=== PATIENT | male | born 1960 | race Caucasian/White ===

== ENCOUNTER 2019-08-12 18:24 | Inpatient (IN) | payer MEDICARE, OTHER, SELFPAY ==
--- NOTE | ~2019-08-12 | XR_ITS ---
EXAMINATION: XR chest 1V portable EXAM DATE: 08/15/2019 23:33 INDICATION: Shortness of breath, hypoxia. TECHNIQUE: Portable AP frontal chest x-ray was obtained. Comparison is made to prior examination from 08/13/2019. FINDINGS: There is been significant interval progression in the previously seen airspace disease, now more extensive involvement of both lungs bilaterally, pneumonia and/or edema. Please clinically martha elate. There is mild cardiomegaly. Cardiac silhouette is stable in size compared to prior exam. There is no pneumothorax suspected. Possible small pleural effusions. There are no osseous abnormalities i dentified. IMPRESSION: Progression of bilateral acute airspace disease. Consider edema, pneumonia, acute lung in jury. Reviewed, dictated and finalized at location G. IMPRESSION: Progression of bilateral acute airspace disease. Consider edema, pn eumonia, acute lung injury.
--- NOTE | ~2019-08-12 | XR_ITS ---
XR chest 1V portable DATE: 08/13/2019 11:26 INDICATION: Pneumonia TECHNIQUE: Portable upright AP chest on 08/13/2019 at 1115 hours COMPARISON: 01/09/2019 AP and lateral chest FINDINGS: There are scattered areas of patchy consolidation involving both upper and lower lung zones . Cardiomegaly. Pulmonary vascularity appears within normal range. No pleural effusion or pneumothorax is evident. IMPRESSION: Patchy consolidation of both upper and lower lung zones Reviewed, dictated and finalized at location A.
--- NOTE | ~2019-08-12 | CT_ITS ---
EXAMINATION: CT abdomen pelvis w con DATE: 08/12/2019 19:32 INDICATION: Abdominal pain and diarrhea TECHNIQUE: Computed tomography (CT) of the abdomen and pelvis was performed . with 100 mL Omnipaque-3 50 intravenous contrast. Automated exposure control and iterative reconstruction technique were emplo yed. The dose-length product was 1589.92 mGy-cm. COMPARISON: 03/16/2018 FINDINGS: Small bilateral posteriorly layering pleural effusions with dependent compressive atelectasis in the bilateral lower lobes. Well-defined 4.6 x 3.4 x 2.4 cm mass versus focal consolidation in the anterob asilar segment of the left lower lobe. Heart size is normal. Atherosclerotic coronary artery calcific ations. No pericardial effusion. There are scattered hepatic calcifications consistent with old granu lomatous disease. Calcified gallstone in the dependent neck of the otherwise normal-appearing gallbla dder with no evident wall thickening or pericholecystic inflammatory stranding to suggest acute marlon cystitis. Splenomegaly measuring 16.0 cm maximal length. Pancreas, bilateral adrenal glands and kidne ys are normal. Air-fluid levels in the colon consistent with given history of diarrhea. No abnormal b owel wall thickening or obstruction. The appendix is not visualized. No pericecal inflammatory change to suggest acute appendicitis. Bladder is normal. No free intraperitoneal gas or fluid. No pathologi joanne enlarged abdominal or pelvic lymphadenopathy. There is calcified atherosclerosis of the aorta a nd many of the other arteries. Mild thoracolumbar spondylosis with bridging osteophytes at multiple l evels, consistent with diffuse idiopathic skeletal hyperostosis (DISH). IMPRESSION: 1. Air-fluid levels in the colon consistent with given history of diarrhea. No other acute intra-abdo laurel/pelvic process. 2. Small bilateral pleural effusions. 3. More focal 4.6 x 3.4 x 2.4 cm masslike region of consolidation in the left lower lobe. Differentia l would include pneumonia, malignancy, organizing pneumonia and atelectasis. 4. Cholelithiasis. 5. Unchanged nonspecific splenomegaly which could be related to body habitus. Reviewed, dictated and finalized at location A. IMPRESSION: 1. Air-fluid levels in the colon consistent with given history of diarrhea. No other acute intra-abdominal/pelvic process. 2. Small bilateral pleural effusions. 3. More focal 4.6 x 3.4 x 2.4 cm masslike region of consolidation in the left l ower lobe. Differential would include pneumonia, malignancy, organizing pneumon ia and atelectasis. 4. Cholelithiasis. 5. Unchanged nonspecific splenomegaly which could be related to body habitus.
[2019-08-12 18:31] VITALS: BP 111/101; PULSE 80; RESP 16; TEMP 36.9; O2SAT 100
--- NOTE | 2019-08-12 18:48 | ED.GENADULT ---
HPI - General Adult General Chief complaint: Nausea/Vomiting/Diarrhea Stated complaint: diarrhea Time Seen by Provider: 08/12/19 18:26 Source: patient Mode of arrival: EMS History of Present Illness HPI narrative: Patient presents for evaluation of 10-day course of diarrhea. He indicates he is currently having about 3-4 bowel movements per day. He has noted a small amount of blood in the stool. He has a history of C. difficile several years ago. He reports some intermittent nonspecific abdominal pain that is relieved by bowel movements. He has experienced some nausea without vomiting. He indicates his urine is concentrated in appearance and he has noted decreased urinary output. He states he went into [facility] in the past when he had c-diff. Currently states he started a course of azithromycin for some respiratory symptoms on 08/02/2019. Those symptoms have resolved. He denies any chest pain. He is diabetic but is not taking his medications for diabetes over the last few days due to blood sugars within the normal range. Related Data Home Medications Medication Instructions Recorded Confirmed apixaban 5 mg tablet 5 mg PO BID 05/14/19 carvedilol phosphate 80 mg 80 mg PO DAILY 05/14/19 capsule,[id number] multiphase digoxin 250 mcg (0.25 mg) tablet 250 mcg PO DAILY 05/14/19 gabapentin 600 mg tablet 600 mg PO TID 05/14/19 insulin glargine 100 unit/mL 75 unit SUB-Q BID 05/14/19 subcutaneous solution insulin regular hum U-500 conc unit SUB-Q QAM 05/14/19 Livalo 4 mg PO DAILY 08/12/19 losartan 50 mg PO DAILY 08/12/19 spironolactone 25 mg PO DAILY 08/12/19 torsemide 20 mg PO QAM 08/12/19 Allergies Allergy/AdvReac Type Severity Reaction Status Date / Time meperidine Allergy Unknown Other Verified 08/12/19 20:48 Review of Systems Review of Systems: Narrative: CONSTITUTIONAL: Denies fever, chills, or sweats. EYES: Denies visual changes, redness, or discharge. ENT: Denies rhinorrhea, congestion, sore throat, or otalgia. CARDIOVASCULAR: Denies chest pain, palpitations, or edema. RESPIRATORY: Denies cough or dyspnea. GASTROINTESTINAL: Reports abdominal pain and nausea. Reports frequent diarrhea with a small amount of blood in the stool denies vomiting. GENITOURINARY: Reports decreased urinary output with concentrated appearance. SKIN: Denies rash or itching. MUSCULOSKELETAL: Denies back pain, joint pain, or myalgia. NEUROLOGIC: Denies headache, numbness, dizziness, or weakness. PSYCHIATRIC: Denies anxiety or depression. [facility] Past Medical History Medical History (Updated 08/12/19 @ 20:46 by Mitul Ruiz, [facility], ) Atrial fibrillation Diabetes mellitus type 2 in obese History of left above knee amputation Hyperlipidemia Surgical History Surgical History (Updated 08/12/19 @ 18:53 by Mitul Ruiz, [facility], ) History of appendectomy History of right below knee amputation Family History Family History (Updated 03/09/18 @ 21:22 by DOCTOR UNKNOWN) Sibling Family history of malignant neoplasm Father Diabetes mellitus Grandparent Diabetes mellitus Other Family history of arthritis Hypertension Social History Social History (Updated 08/12/19 @ 18:53 by Mitul Ruiz, [facility], ) Smoking status: Never smoker Alcohol intake: former Substance use: never Exam Narrative: Exam Narrative: GENERAL: Well-appearing, well-nourished, and in no acute distress. HEAD: Normocephalic, atraumatic. EYES: PERRLA and EOMI. ENT: Nares clear, no rhinorrhea or epistaxis. Mucous membranes moist. Oropharynx without tonsillar hypertrophy exudate or other lesions. Bilateral TMs pearly shea nonbulging NECK: Supple. No adenopathy or masses. No carotid bruits or JVD CHEST: Clear to auscultation. No respiratory distress. No wheezes rales or rhonchi HEART: Regular rate and rhythm. No murmur heard. Normal peripheral pulses. ABDOMEN: Soft, diffuse tenderness without rebound or guarding, normal
[2019-08-12 18:57] LABS: Basophils Absolute Auto 0.1 K/mm3 (0.0-0.1); Basophils Percent Auto 0.4 % (0.2-1.2); Eosinophils Absolute Auto 0.2 K/mm3 (0-0.3); Eosinophils Percent Auto 0.7 % (0-4.4); Hematocrit 36.3 % (42.0-52.0); Hemoglobin 11.4 g/dL (14.0-18.0); Immature Granulocyte Absolute 0.19 K/mm3 (0.00-0.031); Immature Granulocyte Percent A 0.9 % (0-0.5); Lymphocytes Absolute Auto 1.09 K/mm3 (0.9-3.2); Lymphocytes Percent Auto 4.9 % (18.3-44.2); Mean Corpuscular HGB Conc 31.4 g/dl (32-36); Mean Corpuscular Hemoglobin 27.8 pg (26-34); Mean Corpuscular Volume 88.5 fl (80-100); Mean Platelet Volume 8.9 fl (7.4-10.4); Monocytes Absolute Auto 1.5 K/mm3 (0.1-0.6); Monocytes Percent Auto 6.6 % (2.6-8.5); Neutrophils Absolute Auto 19.2 K/mm3 (1.3-6.7); Neutrophils Percent Auto 86.5 % (45.5-73.1); Platelet Count Result 277 k/mm3 (150-375); Red Cell Distribution Width 14.6 % (11.5-14.5); White Blood Count 22.1 K/mm3 (4.5-10.0)
[2019-08-12] MEDS: SODIUM CHLORIDE 0.9% IV 1,000 ML 150 ML IV CONT (19:03)
[2019-08-12] MEDS: MORPHINE SULFATE 2 MG/ML INJ IV PUSH (19:04)
[2019-08-12] MEDS: ONDANSETRON INJ 4 MG/2 ML VIAL IV PUSH (19:04)
[2019-08-12 19:09] LABS: INR 1.4; Prothrombin Time 16.8 Seconds (11.1-14.7)
[2019-08-12 19:10] LABS: Partial Thromboplastin Time 34.9 SECONDS (22.3-36.8)
[2019-08-12 19:23] LABS: Estimated CRCL calculation 77 ml/min; Estimated Glomerular Filt Rate 57
--- NOTE | 2019-08-12 19:34 | ECG_ITS ---
Measurements Intervals [place] Rate: 78 P: SC: 0 QRS: 63 QRSD: 105 T: 85 QT: 349 QTc: 399 Interpretive Statements ATRIAL FIBRILLATION LOW QRS VOLTAGE IN LIMB LEADS POOR R WAVE PROGRESSION, ANTERIOR LEADS BORDERLINE T WAVE ABNORMALITY- INF/LAT LEADS BASELINE ARTIFACT- V2 ABNORMAL ECG Electronically Signed On 08-13-2019 7:08:25 CDT by Jayjay Barnes D.O.
[2019-08-12 20:07] LABS: Alanine Aminotransferase 20 U/L (4-50); Albumin Level 3.3 g/dL (3.5-5.1); Alkaline Phosphatase 132 U/L (38-126); Aspartate Amino Transferase 31 U/L (17-59); Bilirubin,Total 0.6 mg/dL (0.2-1.3); Blood Urea Nitrogen 43 mg/dL (9-20); Calcium 8.2 mg/dL (8.4-10.2); Carbon Dioxide 23 mmol/L (22-30); Chloride 104 mmol/L (98-107); Estimated CRCL calculation 83 ml/min; Estimated Glomerular Filt Rate > 60; Glucose 156 mg/dL (75-110); Lipase 32 U/L (23-300); Potassium 4.8 mmol/L (3.4-5.0); Sodium 137 mmol/L (137-145)
[2019-08-12 20:43] LABS: Lactic Acid Reflex 0.9 mmol/L (0.7-2.1)
[2019-08-12] MEDS: LACTATED RINGERS 1,000 ML 999 ML IV CONT (21:26)
[2019-08-12] MEDS: metroNIDAZOLE 500 MG/ISO 100ML 500 MG/100 ML BAG 100 MG IVPB (21:27)
[2019-08-12] MEDS: LACTATED RINGERS 1,000 ML 125 ML IV CONT (22:38)
[2019-08-12 23:15] VITALS: BP 120/53; PULSE 71; RESP 20; TEMP 36.6; O2SAT 92; BMI 63.2
--- NOTE | 2019-08-12 23:32 | ADMGEN ---
This patient, Lester Nguyễn, was admitted to 3 [facility] Surg Room 328-01. Patient/family oriented to hospital policies and general routines including ID bracelet, bed and alarms, visiting hours, pain management, procedures, bathroom and other care routines, personal items, smoking policy, room service/diet, and visiting hours. Valuables list has been completed. Information on how to activate the Rapid Response Team has been discussed. Patient/Family are encouraged to report perceived risks to care and to ask questions if they do not understand what they are told or what they should do.
[2019-08-13] VITALS (7 sets, daily range): BP systolic 112–154; BP diastolic 41–51; PULSE 72–85; RESP 16–20; TEMP 36.2–36.7; O2SAT 91–95
[2019-08-13 00:27] LABS: Glucose Point of Care 147 (65-105)
[2019-08-13 01:54] LABS: Add Urine Microscopic? NO; Appearance Urine Clear (Clear); Bilirubin Urine Negative (Negative); Blood Urine Negative (Negative); Color Urine Yellow (Yellow); Glucose Urine UA Negative (Negative); Ketones Urine Negative (Negative); Leukocyte Esterase Ur Negative LEU/UL (Negative); Nitrate Urine Negative (Negative); Protein Urine Negative (Negative); Specific Grav Ur 1.029 (1.001-1.035); Urobilinogen Urine Negative mg/dL (<2.0)
--- NOTE | 2019-08-13 04:01 | PM.IMHP ---
H&P: HPI History of Present Illness Chief complaint: community acquired pneumonia, acute diarrhea Narrative: Date and time of patient contact: 08/13/2019 at 3:30 a.m. Lester Nguyễn is a 59 year old male with a complex past medical history including insulin-dependent diabetes mellitus, chronic kidney disease, peripheral vascular disease with subsequent bilateral lower extremity amputations, morbid obesity, and prior C diff colitis who presented to the ER with diarrhea for the last 10 days or so. The patient reports that he started having a cough a little over 2 weeks ago. His primary care physician give him a prescription for azithromycin which she completed. His cough was productive of green sputum. He reports that his cough is somewhat better. At the time my evaluation the patient coughed up some sputum that was yellow and green in color with some pink tinge. He reports some mild shortness of breath associated with the cough. He denies any chest pain. He denies any fevers or chills. He has been having some mild nasal congestion in the morning but that is not unusual for him. He denies any sore throat. He reports some decreased sensation of taste in that things do not taste right. He denies any loss of sense of smell. He has had 1 episode of post-tussive emesis a couple of days ago. He reports that diarrhea has been ongoing for about 10 days. He does not think that it is C diff because it does not smell like C diff. He reports that the stool is watery and light brown in color. He denies any mucus or blood in his stool. He has noticed some blood on the toilet paper over the last day or so but reports that his bottom is role from diarrhea. He had tried [id number] Imodium which has not helped his diarrheal symptoms. He has been having for 5 stools a day. He has had mild decreased oral intake. He has noticed that his urine has had decreased volume despite taking his home to erosive might and spironolactone. He had also noticed decreased urine output. He has not taken any of his home meds including his insulin and diuretics for the last couple of days. His continuous glucose monitor demonstrates his glucoses been mostly in the 130s for the last 24 hours. He denies any recent ill contacts. He lives at home with his brother who is a truck body builder. One of the CNAs that works at our facility also works for the patient part-time and helps him bathe a couple of times a week. He states that he is certain he does not have COVID-19. He reports that he sleeps in his wheelchair sitting up. He does not feel safe transferring from his wheelchair to bed. He was supposed the have a wheelchair evaluation on Tuesday. He has been trying for over a year to get a new wheelchair that would better assist his mobility given is bilateral lower extremity amputation but is run into various barriers. Review of Systems Review of Systems: Narrative: 12 systems were reviewed with pertinent positives and negatives per HPI. Except as documented in the HPI, all other systems were reviewed and are negative. [facility] Past Medical History Medical History (Updated 08/13/19 @ 04:31 by Marielle Moore DO) Atrial fibrillation On chronic anticoagulation with Eliquis Chronic kidney disease, stage 3 Diabetes mellitus type 2 in obese Diabetic nephropathy Diabetic peripheral neuropathy Diastolic dysfunction Last echocardiogram March 2018 demonstrated normal EF of 65-70 with moderate LVH and severe left atrial enlargement Hyperlipidemia Obstructive sleep apnea treated with BiPAP Peripheral vascular disease Surgical History Surgical History (Updated 08/13/19 @ 04:32 by Marielle Moore DO) History of appendectomy History of bilateral carpal tunnel release History of left above knee amputation History of right below knee amputation Family History Family History Sibling Lung cancer Si
--- NOTE | 2019-08-13 04:29 | PC.NURSE ---
Unable to obtain wound pictures due to patient's size and limited bed space to adequately turn to visualize sacral ulcers. Will have a specialty bed ordered to allow for more room to move patient.
[2019-08-13] MEDS: metroNIDAZOLE 500 MG/ISO 100ML 500 MG/100 ML BAG 100 MG IVPB ×3 (05:52→22:47)
[2019-08-13 08:10] LABS: Basophils Absolute Auto 0.1 K/mm3 (0.0-0.1); Basophils Percent Auto 0.4 % (0.2-1.2); Eosinophils Absolute Auto 0.2 K/mm3 (0-0.3); Eosinophils Percent Auto 1.1 % (0-4.4); Hematocrit 32.4 % (42.0-52.0); Hemoglobin 10.2 g/dL (14.0-18.0); Immature Granulocyte Absolute 0.15 K/mm3 (0.00-0.031); Immature Granulocyte Percent A 0.9 % (0-0.5); Lymphocytes Absolute Auto 1.06 K/mm3 (0.9-3.2); Lymphocytes Percent Auto 6.6 % (18.3-44.2); Mean Corpuscular HGB Conc 31.5 g/dl (32-36); Mean Corpuscular Hemoglobin 27.9 pg (26-34); Mean Corpuscular Volume 88.8 fl (80-100); Mean Platelet Volume 8.5 fl (7.4-10.4); Monocytes Absolute Auto 1.2 K/mm3 (0.1-0.6); Monocytes Percent Auto 7.5 % (2.6-8.5); Neutrophils Absolute Auto 13.5 K/mm3 (1.3-6.7); Neutrophils Percent Auto 83.5 % (45.5-73.1); Platelet Count Result 233 k/mm3 (150-375); Red Blood Count 3.65 M/mm3 (4.6-6.20); Red Cell Distribution Width 14.6 % (11.5-14.5); White Blood Count 16.1 K/mm3 (4.5-10.0)
[2019-08-13 08:26] LABS: Glucose Point of Care 144 (65-105)
[2019-08-13 08:27] LABS: Alanine Aminotransferase 17 U/L (4-50); Alkaline Phosphatase 110 U/L (38-126); Aspartate Amino Transferase 25 U/L (17-59); Bilirubin,Total 0.7 mg/dL (0.2-1.3); Blood Urea Nitrogen 41 mg/dL (9-20); Calcium 7.9 mg/dL (8.4-10.2); Carbon Dioxide 25 mmol/L (22-30); Chloride 104 mmol/L (98-107); Estimated CRCL calculation 91 ml/min; Estimated Glomerular Filt Rate > 60; Glucose 144 mg/dL (75-110); Potassium 4.5 mmol/L (3.4-5.0); Sodium 136 mmol/L (137-145)
[2019-08-13] MEDS: GABAPENTIN 400 MG CAPSULE 800 MG PO ×3 (09:24→18:07)
[2019-08-13] MEDS: LOSARTAN POTASSIUM 50 MG TABLET PO (09:24)
[2019-08-13] MEDS: APIXABAN 5 MG TABLET PO ×2 (09:25→18:08)
[2019-08-13] MEDS: SPIRONOLACTONE 25 MG TABLET PO (09:25)
[2019-08-13] MEDS: INSULIN ASPART (*BKC) 100 UNITS/ML 8 UNITS SUB-Q ×3 (09:27→18:03)
[2019-08-13] MEDS: DIGOXIN 250 MCG TABLET PO (09:40)
[2019-08-13] MEDS: ALBUTEROL SULFATE (*SP) AEROSOL 1 PUFF 2 PUFF INHALATION ×3 (12:45→19:49)
[2019-08-13 13:46] LABS: Glucose Point of Care 148 (65-105)
[2019-08-13 13:55] LABS: SARS-CoV-2 RNA PCR Negative
--- NOTE | 2019-08-13 14:17 | PC.NURSE ---
Notified Dr. Blanco that patient is negative for COVID and that we are moving the patient into 302. No new orders were obtained.
[2019-08-13] MEDS: LACTATED RINGERS 1,000 ML 125 ML IV CONT (14:32)
[2019-08-13] MEDS: MORPHINE SULFATE 2 MG/ML INJ (14:33)
--- NOTE | 2019-08-13 17:56 | PM.IMPN ---
Progress Note: A&P Assessment and Plan (1) Diarrhea: Qualifiers: Diarrhea type: presumed infectious Qualified Code(s): R19.7 - Diarrhea, unspecified Code(s): R19.7 - Diarrhea, unspecified Status: Acute Assessment and Plan: Could be viral or bacterial in nature. Antibiotic therapy has been started with Flagyl C diff testing has been sent Given his relative dehydration the patient's toresimide and spironolactone have been held. 08/13/19 17:56 Patient is a 59-year-old male morbidly obese with a BMI of 63, with history of C diff in the past presented with complaint of loose bowel movement last ended, he does not feel it is a C diff, he had been having cough and is primary care doctor started him on a Zithromax, patient still complains of cough but denies any shortness of breath fever or chills, chest x-ray shows pneumonia patient being treated with levofloxacin, the concern patient may have a COVID-19 however test is negative, please taken off isolation, will continue Levaquin continue to monitor the patient (2) Community acquired pneumonia: Qualifiers: Laterality: left Lung location: lower lobe of lung Qualified Code(s): J18.9 - Pneumonia, unspecified organism Code(s): J18.9 - Pneumonia, unspecified organism Status: Acute Assessment and Plan: Patient has been initiated on antibiotic therapy with Levaquin. Given the current incidence of pneumonia associated with COVID-19 COVID-19 testing has been [address] does mention possibility of lung mass in the differential. If the patient's COVID-19 testing negative may consider CT of the chest at a later date. COVID-19 is negative patient is on Levaquin patient will need repeat CT scan to further evaluate lung mass once the pneumonia has improved (3) DARIN (obstructive sleep apnea): Code(s): G47.33 - Obstructive sleep apnea (adult) (pediatric) Status: Acute Assessment and Plan: He has not used his home BiPAP in the last 6 months to year. Due to sitting in his wheelchair to sleep. Will hold off on ordering the patient's Pap therapy until COVID-19 has returned (4) Diabetes mellitus type 2 in obese: Code(s): E11.69 - Type 2 diabetes mellitus with other specified complication; E66.9 - Obesity, unspecified Status: Acute Assessment and Plan: The patient is on a unusual sliding scale at home this will be held. While he is here place patient on mealtime bolus insulin of 8 units with meals and will add moderate sliding scale insulin with Accu-Cheks a.cAnila HS Given his relative euglycemia despite not taking his Lantus for the last 2 days and given his decreased oral intake his home Lantus will be held. Subjective Date/time seen: 08/13/19 17:56 Patient is a 59-year-old male morbidly obese with a BMI of 63, with history of C diff in the past presented with complaint of loose bowel movement last ended, he does not feel it is a C diff, he had been having cough and is primary care doctor started him on a Zithromax, patient still complains of cough but denies any shortness of breath fever or chills, chest x-ray shows pneumonia patient being treated with levofloxacin, the concern patient may have a COVID-19 however test is negative, please taken off isolation, will continue Levaquin continue to monitor the patient Review of Systems Review of Systems: All systems reviewed & are unremarkable except as noted in HPI and below Exam Narrative: Exam Narrative: Morbidly obese with a BMI of 63 Const: General: comfortable and no acute distress HENMT: General nose exam: Normal nares present Mouth: Yes moist mucous membranes Eyes: General: appearance normal, both eyes and all related structures Sclera: sclerae normal Neck: Neck: supple Resp: Effort & Inspection: normal respiratory effort Auscultation: clear to auscultation bilaterally Cardio: Rate: regular rate Rhythm: regular rhythm GI: Auscultat
[2019-08-13 19:30] LABS: Glucose Point of Care 154 (65-105)
[2019-08-14] VITALS (7 sets, daily range): BP systolic 95–118; BP diastolic 40–48; PULSE 66–83; RESP 20; TEMP 36.3–37.4; O2SAT 90–94
[2019-08-14 00:35] LABS: Glucose Point of Care 220 (65-105)
[2019-08-14] MEDS: LACTATED RINGERS 1,000 ML 125 ML IV CONT ×2 (03:41→13:11)
[2019-08-14 06:33] LABS: Hematocrit 35.1 % (42.0-52.0); Hemoglobin 10.5 g/dL (14.0-18.0); Mean Corpuscular HGB Conc 29.9 g/dl (32-36); Mean Corpuscular Hemoglobin 27.8 pg (26-34); Mean Corpuscular Volume 92.9 fl (80-100); Mean Platelet Volume 8.7 fl (7.4-10.4); Platelet Count Result 262 k/mm3 (150-375); Red Blood Count 3.78 M/mm3 (4.6-6.20); Red Cell Distribution Width 14.9 % (11.5-14.5); White Blood Count 19.1 K/mm3 (4.5-10.0)
[2019-08-14 06:49] LABS: Potassium 4.9 mmol/L (3.4-5.0)
[2019-08-14] MEDS: metroNIDAZOLE 500 MG/ISO 100ML 500 MG/100 ML BAG 100 MG IVPB ×3 (06:56→21:10)
[2019-08-14 07:04] LABS: Blood Urea Nitrogen 44 mg/dL (9-20); Carbon Dioxide 20 mmol/L (22-30); Chloride 104 mmol/L (98-107); Estimated CRCL calculation 47 ml/min; Estimated Glomerular Filt Rate 31; Glucose 190 mg/dL (75-110); Sodium 134 mmol/L (137-145)
[2019-08-14] MEDS: GABAPENTIN 400 MG CAPSULE 800 MG PO ×3 (08:25→17:16)
[2019-08-14] MEDS: APIXABAN 5 MG TABLET PO ×2 (08:25→17:16)
[2019-08-14] MEDS: DIGOXIN 250 MCG TABLET PO (08:26)
[2019-08-14 08:30] LABS: Glucose Point of Care 183 (65-105)
[2019-08-14] MEDS: INSULIN ASPART (*BKC) 100 UNITS/ML 8 UNITS SUB-Q ×3 (08:39→17:27)
[2019-08-14] MEDS: ALBUTEROL SULFATE (*SP) AEROSOL 1 PUFF 2 PUFF INHALATION ×4 (09:30→19:25)
--- NOTE | 2019-08-14 12:29 | PM.IMPN ---
Progress Note: A&P Assessment and Plan (1) Diarrhea: Qualifiers: Diarrhea type: presumed infectious Qualified Code(s): R19.7 - Diarrhea, unspecified Code(s): R19.7 - Diarrhea, unspecified Status: Acute Assessment and Plan: Possibly viral or bacterial. C. diff testing initiated in ER. Results not yet available. Still with diarrhea. Will continue IV Levaquin and metronidazole. WBC remains elevated at 19.1 today. Continue IV fluids but will decrease rate. Will have PT/OT evaluate. (2) Community acquired pneumonia: Qualifiers: Laterality: left Lung location: lower lobe of lung Qualified Code(s): J18.9 - Pneumonia, unspecified organism Code(s): J18.9 - Pneumonia, unspecified organism Status: Acute Assessment and Plan: CT abdomen/pelvis with 4.6 x 3.4 x 2.4 cm masslike region of consolidation in left lower lobe. Chest xray with patchy consolidation of both upper and lower lung zones. COVID-19 test is negative. Influenza negative. Urine Legionella negative. Mycoplasma pneumoniae antibody negative. On room air. Continue IV Levaquin as noted above. (3) Acute renal failure superimposed on stage 3 chronic kidney disease: Qualifiers: Acute renal failure type: unspecified Qualified Code(s): N17.9 - Acute kidney failure, unspecified; N18.3 - Chronic kidney disease, stage 3 (moderate) Code(s): N17.9 - Acute kidney failure, unspecified; N18.3 - Chronic kidney disease, stage 3 (moderate) Status: Acute Assessment and Plan: Most likely result of dehydration. Creatinine increased to 2.20 today. Hold losartan and spironolactone. Continue IV fluids as noted above. Will continue to monitor. (4) Diabetes mellitus type 2 in obese: Code(s): E11.69 - Type 2 diabetes mellitus with other specified complication; E66.9 - Obesity, unspecified Status: Acute Assessment and Plan: Glucose reviewed on 08/14/2019. Currently, glucose is acceptable with occasional reading above 200. Will continue to hold home Lantus today but continue scheduled mealtime insulin with sliding scale. Will continue to monitor. Will adjust treatment as needed. (5) DARIN (obstructive sleep apnea): Code(s): G47.33 - Obstructive sleep apnea (adult) (pediatric) Status: Acute Assessment and Plan: Has not used home BiPAP in last 6 months to 1 year. With COVID-19 testing negative, will have BiPAP available for use while here. (6) Atrial fibrillation: Qualifiers: Atrial fibrillation type: unspecified Qualified Code(s): I48.91 - Unspecified atrial fibrillation Code(s): I48.91 - Unspecified atrial fibrillation Status: Acute Assessment and Plan: Known atrial fibrillation. Presently stable. Will continue home digoxin and carvedilol. Continue apixaban for anticoagulation. (7) DVT prophylaxis: Code(s): Z29.9 - Encounter for prophylactic measures, unspecified Status: Acute Assessment and Plan: Continue home apixaban. Time Spent With Patient Time with patient: 15 - 25 minutes Subjective Date/time seen: 08/14/19 12:29 Interval history: Date of Service: 08/14/2019. Admitted with diarrhea, pneumonia. Feels a little bit better today although still weak. Still with diarrhea. No abdominal pain, nausea or vomiting. No chest pain. Had shortness of breath earlier today but better now. No headache or dizziness. Review of Systems Constitutional: Constitutional: Denies chills, Reports fatigue, Denies fever(s) and Reports weakness ENT: Denies dysphagia Cardiovascular: Cardiovascular: Denies chest pain Respiratory: Respiratory: Denies cough and Reports dyspnea Gastrointestinal: Gastrointestinal: Denies abdominal pain, Reports diarrhea, Denies nausea and Denies vomiting Genitourinary: Genitourinary: Reports no additional male genitourinary complaints Musculoskeletal: Musculoskeletal: Re
[2019-08-14] MEDS: LACTATED RINGERS 1,000 ML 100 ML IV CONT (14:56)
[2019-08-14 15:09] LABS: Glucose Point of Care 174 (65-105)
[2019-08-14] MEDS: INSULIN ASPART (*BKC) 100 UNITS/ML SUB-Q (17:28)
[2019-08-14 17:37] LABS: Glucose Point of Care 275 (65-105)
[2019-08-15] VITALS (9 sets, daily range): BP systolic 105–150; BP diastolic 44–66; PULSE 61–72; RESP 15–28; TEMP 36.1–36.7; O2SAT 91–95
[2019-08-15 00:43] LABS: Glucose Point of Care 234 (65-105)
[2019-08-15] MEDS: LACTATED RINGERS 1,000 ML 100 ML IV CONT ×2 (02:12→13:12)
[2019-08-15] MEDS: metroNIDAZOLE 500 MG/ISO 100ML 500 MG/100 ML BAG 100 MG IVPB (06:13)
[2019-08-15 06:38] LABS: Hematocrit 34.3 % (42.0-52.0); Hemoglobin 10.6 g/dL (14.0-18.0); Mean Corpuscular HGB Conc 30.9 g/dl (32-36); Mean Corpuscular Volume 90.5 fl (80-100); Platelet Count Result 261 k/mm3 (150-375); Red Blood Count 3.79 M/mm3 (4.6-6.20); Red Cell Distribution Width 14.9 % (11.5-14.5); White Blood Count 15.7 K/mm3 (4.5-10.0)
[2019-08-15 06:59] LABS: Blood Urea Nitrogen 61 mg/dL (9-20); Carbon Dioxide 20 mmol/L (22-30); Chloride 103 mmol/L (98-107); Estimated CRCL calculation 36 ml/min; Estimated Glomerular Filt Rate 22; Glucose 275 mg/dL (75-110); Sodium 132 mmol/L (137-145)
[2019-08-15] MEDS: ALBUTEROL SULFATE (*SP) AEROSOL 1 PUFF 2 PUFF INHALATION ×4 (08:01→20:19)
[2019-08-15] MEDS: DIGOXIN 250 MCG TABLET PO (08:17)
[2019-08-15] MEDS: GABAPENTIN 400 MG CAPSULE 800 MG PO ×3 (08:17→17:58)
[2019-08-15] MEDS: APIXABAN 5 MG TABLET PO ×2 (08:17→17:58)
[2019-08-15] MEDS: INSULIN ASPART (*BKC) 100 UNITS/ML SUB-Q ×3 (08:18→17:57)
[2019-08-15] MEDS: INSULIN ASPART (*BKC) 100 UNITS/ML 8 UNITS SUB-Q ×3 (08:18→17:56)
[2019-08-15 08:30] LABS: Glucose Point of Care 220 (65-105)
--- NOTE | 2019-08-15 09:37 | PCOTNOTE ---
Patient C-Diff +, hold per nursing until precautions/PPE are in place in room. Will attempt OT evaluation when isolation kit is in place.
[2019-08-15] MEDS: FIDAXOMICIN 200 MG TABLET PO ×2 (11:04→21:47)
[2019-08-15 12:43] LABS: Glucose Point of Care 270 (65-105)
--- NOTE | 2019-08-15 13:02 | PM.IMPN ---
Progress Note: A&P Assessment and Plan (1) C. difficile colitis: Code(s): A04.72 - Enterocolitis due to Clostridium difficile, not specified as recurrent Status: Acute Assessment and Plan: C diff testing is now positive. Diarrhea actually already improving. Will stop IV metronidazole. Start fidaxomicin. Will continue IV fluids. Will continue to monitor. Continues to have GI losses but hopefully will improve with treatment of C difficile colitis. (2) Community acquired pneumonia: Qualifiers: Laterality: left Lung location: lower lobe of lung Qualified Code(s): J18.9 - Pneumonia, unspecified organism Code(s): J18.9 - Pneumonia, unspecified organism Status: Acute Assessment and Plan: CT abdomen/pelvis with 4.6 x 3.4 x 2.4 cm masslike region of consolidation in left lower lobe. Chest xray with patchy consolidation of both upper and lower lung zones. COVID-19 test is negative. Influenza negative. Urine Legionella negative. Mycoplasma pneumoniae antibody negative. Remains on room air. Will continue IV Levaquin although patient aware may aggravate his colitis. Continue to monitor. (3) Acute renal failure superimposed on stage 3 chronic kidney disease: Qualifiers: Acute renal failure type: unspecified Qualified Code(s): N17.9 - Acute kidney failure, unspecified; N18.3 - Chronic kidney disease, stage 3 (moderate) Code(s): N17.9 - Acute kidney failure, unspecified; N18.3 - Chronic kidney disease, stage 3 (moderate) Status: Acute Assessment and Plan: Most likely result of dehydration as result of GI losses. Creatinine is higher at 2.90 today. Continue IV fluids. Continue to hold losartan and spironolactone. Will continue to monitor. (4) Diabetes mellitus type 2 in obese: Code(s): E11.69 - Type 2 diabetes mellitus with other specified complication; E66.9 - Obesity, unspecified Status: Acute Assessment and Plan: Glucose reviewed on 08/15/2019 but now consistently remaining in the 200s. Will resume Lantus but at lower dose than home. Continue scheduled mealtime insulin. Continue sliding scale insulin. Will continue to monitor and adjust treatment as needed. (5) DARIN (obstructive sleep apnea): Code(s): G47.33 - Obstructive sleep apnea (adult) (pediatric) Status: Acute Assessment and Plan: Has not used home BiPAP in last 6 months to 1 year. With COVID-19 testing negative, will continue to have BiPAP available for use while here. (6) Atrial fibrillation: Qualifiers: Atrial fibrillation type: unspecified Qualified Code(s): I48.91 - Unspecified atrial fibrillation Code(s): I48.91 - Unspecified atrial fibrillation Status: Acute Assessment and Plan: Known atrial fibrillation. Remains stable. Will continue home digoxin and carvedilol. Continue apixaban for anticoagulation. (7) DVT prophylaxis: Code(s): Z29.9 - Encounter for prophylactic measures, unspecified Status: Acute Assessment and Plan: Continue home apixaban. Time Spent With Patient Time with patient: 15 - 25 minutes Subjective Date/time seen: 08/15/19 13:02 Interval history: Date of Service: 08/15/2019. Admitted with diarrhea, pneumonia. Still with diarrhea but slightly better. Also still complains of cough with some shortness of breath. No chest pain. No headache. Review of Systems Constitutional: Constitutional: Denies chills and Denies fever(s) ENT: Denies dysphagia Cardiovascular: Cardiovascular: Denies chest pain Respiratory: Respiratory: Reports cough (productive) and Reports dyspnea Gastrointestinal: Gastrointestinal: Denies abdominal pain, Denies dysphagia, Reports diarrhea, Denies nausea and Denies vomiting Genitourinary: Genitourinary: Reports no additional male genitourinary complaints Musculoskeletal: Musculoskeletal: Reports no additional musculoskeletal complaints In
[2019-08-15 18:06] LABS: Glucose Point of Care 278 (65-105)
[2019-08-15] MEDS: INSULIN GLARGINE (*BKC) 100 UNITS/ML 35 UNITS SUB-Q (21:59)
[2019-08-16] VITALS (11 sets, daily range): BP systolic 142–171; BP diastolic 48–83; PULSE 60–72; RESP 20–28; TEMP 35.8–36.6; O2SAT 95–99
[2019-08-16 00:58] LABS: Glucose Point of Care 347 (65-105)
[2019-08-16 01:07] LABS: NT Pro B Type Natriuretic Pept 4750 PG/ML (5-100)
[2019-08-16] MEDS: LACTATED RINGERS 1,000 ML 100 ML IV CONT (01:35)
[2019-08-16 06:50] LABS: Hematocrit 34.9 % (42.0-52.0); Hemoglobin 11.1 g/dL (14.0-18.0); Mean Corpuscular HGB Conc 31.8 g/dl (32-36); Mean Corpuscular Hemoglobin 27.9 pg (26-34); Mean Corpuscular Volume 87.7 fl (80-100); Mean Platelet Volume 8.6 fl (7.4-10.4); Platelet Count Result 266 k/mm3 (150-375); Red Blood Count 3.98 M/mm3 (4.6-6.20); Red Cell Distribution Width 14.7 % (11.5-14.5); White Blood Count 12.6 K/mm3 (4.5-10.0)
[2019-08-16 07:01] LABS: Blood Urea Nitrogen 58 mg/dL (9-20); Carbon Dioxide 20 mmol/L (22-30); Chloride 106 mmol/L (98-107); Estimated CRCL calculation 64 ml/min; Estimated Glomerular Filt Rate 45; Glucose 315 mg/dL (75-110); Sodium 134 mmol/L (137-145)
[2019-08-16 08:31] LABS: Glucose Point of Care 295 (65-105)
[2019-08-16] MEDS: ALBUTEROL SULFATE (*SP) AEROSOL 1 PUFF 2 PUFF INHALATION ×4 (09:19→19:49)
[2019-08-16] MEDS: DIGOXIN 250 MCG TABLET PO (09:53)
[2019-08-16] MEDS: FIDAXOMICIN 200 MG TABLET PO ×2 (09:55→20:33)
[2019-08-16] MEDS: GABAPENTIN 400 MG CAPSULE 800 MG PO ×3 (09:55→17:58)
[2019-08-16] MEDS: APIXABAN 5 MG TABLET PO ×2 (09:55→17:58)
[2019-08-16] MEDS: INSULIN ASPART (*BKC) 100 UNITS/ML 8 UNITS SUB-Q ×3 (09:57→17:57)
[2019-08-16] MEDS: INSULIN ASPART (*BKC) 100 UNITS/ML SUB-Q ×3 (09:57→17:58)
[2019-08-16] MEDS: INSULIN GLARGINE (*BKC) 100 UNITS/ML 75 UNITS SUB-Q ×2 (09:58→20:45)
--- NOTE | 2019-08-16 12:17 | PM.IMPN ---
Progress Note: A&P Assessment and Plan (1) C. difficile colitis: Code(s): A04.72 - Enterocolitis due to Clostridium difficile, not specified as recurrent Status: Acute Assessment and Plan: C diff testing positive. Still has diarrhea but improving. Now on fidaxomicin with IV metronidazole discontinued on 08/15/2019. IV fluids discontinued overnight due to findings on chest x-ray. Will continue to monitor. Continue PT/OT. (2) Community acquired pneumonia: Qualifiers: Laterality: left Lung location: lower lobe of lung Qualified Code(s): J18.9 - Pneumonia, unspecified organism Code(s): J18.9 - Pneumonia, unspecified organism Status: Acute Assessment and Plan: CT abdomen/pelvis with 4.6 x 3.4 x 2.4 cm masslike region of consolidation in left lower lobe. Chest xray on admission with patchy consolidation of both upper and lower lung zones. COVID-19 test is negative. Influenza negative. Urine Legionella negative. Mycoplasma pneumoniae antibody negative. Chest x-ray done overnight with increase in bilateral airspace disease. IV fluids discontinued. Remains on room air today. Continue IV Levaquin for now. Will continue to monitor. (3) Acute renal failure superimposed on stage 3 chronic kidney disease: Qualifiers: Acute renal failure type: unspecified Qualified Code(s): N17.9 - Acute kidney failure, unspecified; N18.3 - Chronic kidney disease, stage 3 (moderate) Code(s): N17.9 - Acute kidney failure, unspecified; N18.3 - Chronic kidney disease, stage 3 (moderate) Status: Acute Assessment and Plan: Most likely result of dehydration as result of GI losses. Creatinine significantly improved today at 1.60. He is able to urinate on his own and has not had urinary catheter placed. Now off IV fluids as noted above. Continue to hold losartan and spironolactone. Will continue to monitor. (4) Diabetes mellitus type 2 in obese: Code(s): E11.69 - Type 2 diabetes mellitus with other specified complication; E66.9 - Obesity, unspecified Status: Acute Assessment and Plan: Glucose reviewed on 08/16/2019 and remaining elevated with readings in the 200s to 300s. Advanced Lantus to home high dose. Continue scheduled mealtime insulin. Will continue sliding scale insulin as needed. Continue to monitor and adjust treatment as needed. (5) DARIN (obstructive sleep apnea): Code(s): G47.33 - Obstructive sleep apnea (adult) (pediatric) Status: Acute Assessment and Plan: Has not used home BiPAP in last 6 months to 1 year. With COVID-19 testing negative, will insure BiPAP available for use although had not previously put in order. Discussed with patient who is willing to use. (6) Atrial fibrillation: Qualifiers: Atrial fibrillation type: unspecified Qualified Code(s): I48.91 - Unspecified atrial fibrillation Code(s): I48.91 - Unspecified atrial fibrillation Status: Acute Assessment and Plan: Known atrial fibrillation. Clinically remains stable. Will continue home digoxin and carvedilol. Continue apixaban for anticoagulation. (7) DVT prophylaxis: Code(s): Z29.9 - Encounter for prophylactic measures, unspecified Status: Acute Assessment and Plan: Continue home apixaban. Time Spent With Patient Time with patient: 15 - 25 minutes Subjective Date/time seen: 08/16/19 12:17 Interval history: Date of Service: 08/16/2019. Admitted with diarrhea, pneumonia. Sleeping but easily awakened. Feels weak today. Still with diarrhea. Is urinating on his own. No chest pain but does have some shortness of breath. Still has cough. No abdominal pain, nausea or vomiting. Review of Systems Review of Systems: Narrative: Feels weak today. Constitutional: Constitutional: Denies chills, Denies fever(s) and Reports weakness ENT: Denies dysphagia Cardiovascular: Cardiovascular: Denies chest p
[2019-08-16 12:39] LABS: Glucose Point of Care 336 (65-105)
[2019-08-16 17:50] LABS: Glucose Point of Care 325 (65-105)
[2019-08-16] MEDS: GUAIFENESIN 200 MG/10 ML UDC PO (17:58)
[2019-08-16 20:44] LABS: Glucose Point of Care 331 (65-105)
[2019-08-17] VITALS (7 sets, daily range): BP systolic 140–181; BP diastolic 50–64; PULSE 54–72; RESP 20–22; TEMP 35.7–36.4; O2SAT 96–100
[2019-08-17 05:48] LABS: Blood Urea Nitrogen 41 mg/dL (9-20); Calcium 8.2 mg/dL (8.4-10.2); Carbon Dioxide 27 mmol/L (22-30); Chloride 108 mmol/L (98-107); Estimated CRCL calculation 91 ml/min; Estimated Glomerular Filt Rate > 60; Glucose 291 mg/dL (75-110); Potassium 5.1 mmol/L (3.4-5.0); Sodium 138 mmol/L (137-145)
[2019-08-17 05:56] LABS: Hematocrit 37.5 % (42.0-52.0); Hemoglobin 11.6 g/dL (14.0-18.0); Mean Corpuscular HGB Conc 30.9 g/dl (32-36); Mean Corpuscular Hemoglobin 27.6 pg (26-34); Mean Corpuscular Volume 89.1 fl (80-100); Mean Platelet Volume 8.4 fl (7.4-10.4); Platelet Count Result 287 k/mm3 (150-375); Red Blood Count 4.21 M/mm3 (4.6-6.20); Red Cell Distribution Width 14.7 % (11.5-14.5); White Blood Count 11.1 K/mm3 (4.5-10.0)
[2019-08-17] MEDS: ALBUTEROL SULFATE (*SP) AEROSOL 1 PUFF 2 PUFF INHALATION ×3 (07:41→19:23)
[2019-08-17] MEDS: INSULIN ASPART (*BKC) 100 UNITS/ML 8 UNITS SUB-Q ×3 (08:30→17:00)
[2019-08-17] MEDS: INSULIN ASPART (*BKC) 100 UNITS/ML SUB-Q ×3 (08:31→17:01)
[2019-08-17] MEDS: INSULIN GLARGINE (*BKC) 100 UNITS/ML 75 UNITS SUB-Q ×2 (08:32→21:50)
[2019-08-17] MEDS: GUAIFENESIN 200 MG/10 ML UDC PO ×2 (08:37→16:50)
[2019-08-17] MEDS: DIGOXIN 250 MCG TABLET PO (08:38)
[2019-08-17] MEDS: APIXABAN 5 MG TABLET PO ×2 (08:39→16:55)
[2019-08-17] MEDS: GABAPENTIN 400 MG CAPSULE 800 MG PO ×3 (08:39→16:55)
[2019-08-17] MEDS: FIDAXOMICIN 200 MG TABLET PO ×2 (08:39→21:50)
[2019-08-17 08:51] LABS: Glucose Point of Care 286 (65-105)
[2019-08-17 12:34] LABS: Glucose Point of Care 301 (65-105)
--- NOTE | 2019-08-17 13:42 | PM.IMPN ---
Progress Note: A&P Assessment and Plan (1) C. difficile colitis: Code(s): A04.72 - Enterocolitis due to Clostridium difficile, not specified as recurrent Status: Acute Assessment and Plan: C diff testing positive. Number of stools has decreased. Will continue fidaxomicin with IV metronidazole discontinued on 08/15/2019. No longer on IV fluids. Will continue to monitor. Continue PT/OT. Patient does not wish to go to SNF. Will plan to have patient return home when ready for discharge. (2) Community acquired pneumonia: Qualifiers: Laterality: left Lung location: lower lobe of lung Qualified Code(s): J18.9 - Pneumonia, unspecified organism Code(s): J18.9 - Pneumonia, unspecified organism Status: Acute Assessment and Plan: CT abdomen/pelvis with 4.6 x 3.4 x 2.4 cm masslike region of consolidation in left lower lobe. Chest xray on admission with patchy consolidation of both upper and lower lung zones. COVID-19 test is negative. Influenza negative. Urine Legionella negative. Mycoplasma pneumoniae antibody negative. Chest x-ray done on 08/15/2019 with increase in bilateral airspace disease. IV fluids discontinued as result. Still remaining on room air. Will continue IV Levaquin. Continue to monitor. (3) Acute renal failure superimposed on stage 3 chronic kidney disease: Qualifiers: Acute renal failure type: unspecified Qualified Code(s): N17.9 - Acute kidney failure, unspecified; N18.3 - Chronic kidney disease, stage 3 (moderate) Code(s): N17.9 - Acute kidney failure, unspecified; N18.3 - Chronic kidney disease, stage 3 (moderate) Status: Acute Assessment and Plan: Most likely result of dehydration as result of GI losses. Now resolved with creatinine down to 1.10. Off IV fluids. Urinating on his own. Will resume home losartan with blood pressure increasing but continue to hold spironolactone and torsemide for now. Will continue to monitor. (4) Diabetes mellitus type 2 in obese: Code(s): E11.69 - Type 2 diabetes mellitus with other specified complication; E66.9 - Obesity, unspecified Status: Acute Assessment and Plan: Glucose reviewed on 08/17/2019 and still elevated with readings in the 200s to 300s. Advanced Lantus to home high dose last evening. Continue scheduled mealtime insulin but increased dose. Will continue sliding scale insulin as needed. Continue to monitor and adjust treatment as needed. (5) DARIN (obstructive sleep apnea): Code(s): G47.33 - Obstructive sleep apnea (adult) (pediatric) Status: Acute Assessment and Plan: Has not used home BiPAP in last 6 months to 1 year. With COVID-19 testing negative, will continue to have CPAP/BiPAP available for use. Patient did not use last night as he was not aware this was available. (6) Atrial fibrillation: Qualifiers: Atrial fibrillation type: unspecified Qualified Code(s): I48.91 - Unspecified atrial fibrillation Code(s): I48.91 - Unspecified atrial fibrillation Status: Acute Assessment and Plan: Known atrial fibrillation. Continues to remain stable. Will continue home digoxin and carvedilol. Continue apixaban for anticoagulation. (7) DVT prophylaxis: Code(s): Z29.9 - Encounter for prophylactic measures, unspecified Status: Acute Assessment and Plan: Continue home apixaban. Time Spent With Patient Time with patient: 15 - 25 minutes Subjective Date/time seen: 08/17/19 13:42 Interval history: Date of Service: 08/17/2019. Admitted with diarrhea, pneumonia. Sleeping but easily awakened. Has only had 1 diarrhea stool today. No abdominal pain. Does complain of some shortness of breath. Still has cough. No chest pain or pressure. Review of Systems Constitutional: Constitutional: Denies chills, Denies fever(s) and Reports weakness ENT: Denies dysphagia Cardiovascular: Cardiovascular
[2019-08-17 17:12] LABS: Glucose Point of Care 347 (65-105)
[2019-08-17 20:44] LABS: Glucose Point of Care 340 (65-105)
[2019-08-18] VITALS (8 sets, daily range): BP systolic 138–176; BP diastolic 42–71; PULSE 51–58; RESP 18–20; TEMP 36.3–36.8; O2SAT 90–98
[2019-08-18 06:47] LABS: Hematocrit 36.8 % (42.0-52.0); Hemoglobin 11.4 g/dL (14.0-18.0); Mean Corpuscular Hemoglobin 27.6 pg (26-34); Mean Corpuscular Volume 89.1 fl (80-100); Mean Platelet Volume 8.4 fl (7.4-10.4); Platelet Count Result 264 k/mm3 (150-375); Red Blood Count 4.13 M/mm3 (4.6-6.20); Red Cell Distribution Width 14.7 % (11.5-14.5); White Blood Count 9.9 K/mm3 (4.5-10.0)
[2019-08-18 07:07] LABS: Blood Urea Nitrogen 24 mg/dL (9-20); Calcium 8.3 mg/dL (8.4-10.2); Carbon Dioxide 29 mmol/L (22-30); Chloride 108 mmol/L (98-107); Estimated CRCL calculation 123 ml/min; Estimated Glomerular Filt Rate > 60; Glucose 238 mg/dL (75-110); Potassium 4.7 mmol/L (3.4-5.0); Sodium 140 mmol/L (137-145)
[2019-08-18 08:09] LABS: Glucose Point of Care 237 (65-105)
[2019-08-18] MEDS: ALBUTEROL SULFATE (*SP) AEROSOL 1 PUFF 2 PUFF INHALATION ×2 (08:28→14:21)
[2019-08-18] MEDS: INSULIN ASPART (*BKC) 100 UNITS/ML SUB-Q ×3 (08:39→17:30)
[2019-08-18] MEDS: INSULIN ASPART (*BKC) 100 UNITS/ML 15 UNITS SUB-Q ×3 (08:40→17:30)
[2019-08-18] MEDS: INSULIN GLARGINE (*BKC) 100 UNITS/ML 80 UNITS SUB-Q ×2 (08:41→21:19)
[2019-08-18] MEDS: DIGOXIN 250 MCG TABLET PO (08:44)
[2019-08-18] MEDS: GABAPENTIN 400 MG CAPSULE 800 MG PO ×3 (08:44→17:31)
[2019-08-18] MEDS: GUAIFENESIN 200 MG/10 ML UDC PO (08:44)
[2019-08-18] MEDS: APIXABAN 5 MG TABLET PO ×2 (08:44→17:31)
[2019-08-18] MEDS: FIDAXOMICIN 200 MG TABLET PO ×2 (08:45→21:20)
[2019-08-18] MEDS: LOSARTAN POTASSIUM 50 MG TABLET PO (08:45)
[2019-08-18 12:23] LABS: Glucose Point of Care 256 (65-105)
--- NOTE | 2019-08-18 13:11 | PM.IMPN ---
Progress Note: A&P Assessment and Plan (1) C. difficile colitis: Code(s): A04.72 - Enterocolitis due to Clostridium difficile, not specified as recurrent Status: Acute Assessment and Plan: C diff testing positive. Improving with number of stools decreased. Will continue fidaxomicin. No longer on IV fluids. Will continue to monitor. Continue PT/OT. Patient does not wish to go to SNF with plan to return home at discharge. Possible discharge in next 1-2 days if stable. (2) Community acquired pneumonia: Qualifiers: Laterality: left Lung location: lower lobe of lung Qualified Code(s): J18.9 - Pneumonia, unspecified organism Code(s): J18.9 - Pneumonia, unspecified organism Status: Acute Assessment and Plan: CT abdomen/pelvis with 4.6 x 3.4 x 2.4 cm masslike region of consolidation in left lower lobe. Chest xray on admission with patchy consolidation of both upper and lower lung zones. COVID-19 test is negative. Influenza negative. Urine Legionella negative. Mycoplasma pneumoniae antibody negative. Chest x-ray done on 08/15/2019 with increase in bilateral airspace disease. Remaining on room air but does complain of some shortness of breath which I feels more likely to home torsemide on hold. Resume home torsemide today with blood pressure and kidney function stable. Change albuterol HFA 2 as needed. Will continue IV Levaquin for now. Continue to monitor. (3) Acute renal failure superimposed on stage 3 chronic kidney disease: Qualifiers: Acute renal failure type: unspecified Qualified Code(s): N17.9 - Acute kidney failure, unspecified; N18.3 - Chronic kidney disease, stage 3 (moderate) Code(s): N17.9 - Acute kidney failure, unspecified; N18.3 - Chronic kidney disease, stage 3 (moderate) Status: Acute Assessment and Plan: Most likely result of dehydration as result of GI losses. Normal at remains resolved with creatinine normal at 0.80 today. Off IV fluids as noted above. Home losartan already resumed. Resuming torsemide. Will hold off on resuming spironolactone due to potassium level. Will continue to monitor. (4) Diabetes mellitus type 2 in obese: Code(s): E11.69 - Type 2 diabetes mellitus with other specified complication; E66.9 - Obesity, unspecified Status: Acute Assessment and Plan: Glucose reviewed on 08/18/2019. Glucose readings better although still in the 200s. Increased Lantus again today. Continue scheduled mealtime insulin. Continue sliding scale insulin as needed. Will continue to monitor and adjust treatment as needed. (5) DARIN (obstructive sleep apnea): Code(s): G47.33 - Obstructive sleep apnea (adult) (pediatric) Status: Acute Assessment and Plan: Has not used home BiPAP in last 6 months to 1 year. With COVID-19 testing negative, will continue to have CPAP/BiPAP available for use. (6) Atrial fibrillation: Qualifiers: Atrial fibrillation type: unspecified Qualified Code(s): I48.91 - Unspecified atrial fibrillation Code(s): I48.91 - Unspecified atrial fibrillation Status: Acute Assessment and Plan: Known atrial fibrillation. Stable. Will continue home digoxin and carvedilol. Continue apixaban for anticoagulation. (7) DVT prophylaxis: Code(s): Z29.9 - Encounter for prophylactic measures, unspecified Status: Acute Assessment and Plan: Continue home apixaban. Time Spent With Patient Time with patient: 15 - 25 minutes Subjective Date/time seen: 08/18/19 13:11 Interval history: Date of Service: 08/18/2019. Admitted with diarrhea, pneumonia. Awake and ready for lunch. Complains of shortness of breath. Cough improving. Diarrhea improving with only 2 smears today. No abdominal pain. No chest pain. Review of Systems Constitutional: Constitutional: Denies chills and Denies fever(s) ENT: Denies dysphagia Cardiovascular: C
[2019-08-18] MEDS: TORSEMIDE 20 MG TABLET PO (14:17)
[2019-08-18 17:39] LABS: Glucose Point of Care 256 (65-105)
[2019-08-19] VITALS (7 sets, daily range): BP systolic 162–190; BP diastolic 56–70; PULSE 56–61; RESP 20; TEMP 36.6–36.7; O2SAT 97–98
[2019-08-19 06:34] LABS: Hematocrit 38.6 % (42.0-52.0); Hemoglobin 12.1 g/dL (14.0-18.0); Mean Corpuscular HGB Conc 31.3 g/dl (32-36); Mean Corpuscular Hemoglobin 27.8 pg (26-34); Mean Corpuscular Volume 88.5 fl (80-100); Mean Platelet Volume 8.2 fl (7.4-10.4); Platelet Count Result 247 k/mm3 (150-375); Red Blood Count 4.36 M/mm3 (4.6-6.20); Red Cell Distribution Width 14.7 % (11.5-14.5); White Blood Count 9.6 K/mm3 (4.5-10.0)
[2019-08-19 06:46] LABS: Blood Urea Nitrogen 18 mg/dL (9-20); Calcium 8.5 mg/dL (8.4-10.2); Carbon Dioxide 33 mmol/L (22-30); Chloride 105 mmol/L (98-107); Estimated CRCL calculation 123 ml/min; Estimated Glomerular Filt Rate > 60; Glucose 242 mg/dL (75-110); Potassium 4.7 mmol/L (3.4-5.0); Sodium 141 mmol/L (137-145)
[2019-08-19 09:14] LABS: Glucose Point of Care 200 (65-105)
[2019-08-19] MEDS: INSULIN GLARGINE (*BKC) 100 UNITS/ML 90 UNITS SUB-Q (10:07)
[2019-08-19] MEDS: INSULIN ASPART (*BKC) 100 UNITS/ML 15 UNITS SUB-Q ×2 (10:07→12:54)
[2019-08-19] MEDS: GABAPENTIN 400 MG CAPSULE 800 MG PO ×2 (10:09→12:54)
[2019-08-19] MEDS: FIDAXOMICIN 200 MG TABLET PO (10:10)
[2019-08-19] MEDS: TORSEMIDE 20 MG TABLET PO (10:10)
[2019-08-19] MEDS: DIGOXIN 250 MCG TABLET PO (10:10)
[2019-08-19] MEDS: LOSARTAN POTASSIUM 50 MG TABLET PO (10:11)
[2019-08-19] MEDS: APIXABAN 5 MG TABLET PO (10:11)
[2019-08-19 12:42] LABS: Glucose Point of Care 264 (65-105)
[2019-08-19] MEDS: INSULIN ASPART (*BKC) 100 UNITS/ML SUB-Q (12:53)
--- NOTE | 2019-08-19 14:51 | PM.IMPN ---
Progress Note: A&P Assessment and Plan (1) C. difficile colitis: Code(s): A04.72 - Enterocolitis due to Clostridium difficile, not specified as recurrent Status: Acute Assessment and Plan: C diff testing positive. Diarrhea has improved. Has received fidaxomicin here and will plan to continue at home to complete treatment unless too expensive. If necessary, could complete treatment with oral vancomycin. Has had PT/OT here but does not wish to go to SNF or have home health. Will discharge home today as stable. (2) Community acquired pneumonia: Qualifiers: Laterality: left Lung location: lower lobe of lung Qualified Code(s): J18.9 - Pneumonia, unspecified organism Code(s): J18.9 - Pneumonia, unspecified organism Status: Acute Assessment and Plan: CT abdomen/pelvis with 4.6 x 3.4 x 2.4 cm masslike region of consolidation in left lower lobe. Chest xray on admission with patchy consolidation of both upper and lower lung zones. COVID-19 test is negative. Influenza negative. Urine Legionella negative. Mycoplasma pneumoniae antibody negative. Chest x-ray done on 08/15/2019 with increase in bilateral airspace disease IV fluids discontinued at that time. Has been on 2 L of oxygen today more for comfort. Oxygen discontinue just before my exam with O2 saturation 94% on room air subsequently. Continue albuterol HFA as needed. Has been receiving IV Levaquin and will complete treatment with oral Levaquin at home. Overall has improved. (3) Acute renal failure superimposed on stage 3 chronic kidney disease: Qualifiers: Acute renal failure type: unspecified Qualified Code(s): N17.9 - Acute kidney failure, unspecified; N18.3 - Chronic kidney disease, stage 3 (moderate) Code(s): N17.9 - Acute kidney failure, unspecified; N18.3 - Chronic kidney disease, stage 3 (moderate) Status: Acute Assessment and Plan: Most likely result of dehydration as result of GI losses. Creatinine remains normal at 0.80 today. Has been off IV fluids for several days. Losartan and torsemide have already both been resumed. Continue to hold spironolactone with potassium level remaining 4.7. Follow kidney function as an outpatient. (4) Diabetes mellitus type 2 in obese: Code(s): E11.69 - Type 2 diabetes mellitus with other specified complication; E66.9 - Obesity, unspecified Status: Acute Assessment and Plan: Glucose reviewed on 08/19/2019 and remains elevated in the 200s but patient tends to not have good control when in hospital. Does use Humalog U 500 at home which is not available here. Will continue current dose of Lantus. Resume home Humalog U 500 regimen. Will need to continue to monitor at home. Will need to follow-up with primary physician for further adjustments. (5) DARIN (obstructive sleep apnea): Code(s): G47.33 - Obstructive sleep apnea (adult) (pediatric) Status: Acute Assessment and Plan: Has not used home BiPAP in last 6 months to 1 year. With COVID-19 testing negative, has had CPAP/BiPAP available for use. Encourage patient to use at home. He may need to discuss with his primary physician if no longer has CPAP/BiPAP at home. (6) Atrial fibrillation: Qualifiers: Atrial fibrillation type: unspecified Qualified Code(s): I48.91 - Unspecified atrial fibrillation Code(s): I48.91 - Unspecified atrial fibrillation Status: Acute Assessment and Plan: Known atrial fibrillation. Remains stable on home digoxin and carvedilol. Will also continue apixaban for anticoagulation. (7) DVT prophylaxis: Code(s): Z29.9 - Encounter for prophylactic measures, unspecified Status: Acute Assessment and Plan: Continue home apixaban. Time Spent With Patient Time with patient: 15 - 25 minutes Subjective Date/time seen: 08/19/19 14:51 Interval history: Date of Service: 08/19/2019. Admitted with [facility]
[2019-08-19 17:45] LABS: Glucose Point of Care 254 (65-105)
--- NOTE | 2019-08-19 18:12 | PM.DS ---
DS: Diagnosis Admitting Diagnosis Admitting Diagnosis: Diarrhea, unspecified Discharge Diagnosis (1) C. difficile colitis: Code(s): A04.72 - Enterocolitis due to Clostridium difficile, not specified as recurrent Status: Acute (2) Community acquired pneumonia: Qualifiers: Laterality: left Lung location: lower lobe of lung Qualified Code(s): J18.9 - Pneumonia, unspecified organism Code(s): J18.9 - Pneumonia, unspecified organism Status: Acute (3) Acute renal failure superimposed on stage 3 chronic kidney disease: Qualifiers: Acute renal failure type: unspecified Qualified Code(s): N17.9 - Acute kidney failure, unspecified; N18.3 - Chronic kidney disease, stage 3 (moderate) Code(s): N17.9 - Acute kidney failure, unspecified; N18.3 - Chronic kidney disease, stage 3 (moderate) Status: Acute (4) Diabetes mellitus type 2 in obese: Code(s): E11.69 - Type 2 diabetes mellitus with other specified complication; E66.9 - Obesity, unspecified Status: Acute (5) DARIN (obstructive sleep apnea): Code(s): G47.33 - Obstructive sleep apnea (adult) (pediatric) Status: Acute (6) Atrial fibrillation: Qualifiers: Atrial fibrillation type: unspecified Qualified Code(s): I48.91 - Unspecified atrial fibrillation Code(s): I48.91 - Unspecified atrial fibrillation Status: Acute DS: Summary Hospital Course Reason for hospitalization: Diarrhea. Hospital Course: Date of Service of Discharge: August 19, 2019. History of Present Illness: Patient is a 59-year-old gentleman with complex medical history including insulin-dependent diabetes mellitus with peripheral vascular disease status post bilateral lower extremity amputations, chronic kidney disease, hypertension, untreated sleep apnea, morbid obesity and prior C difficile colitis who present to the emergency room with complaint of diarrhea for at least 10 days. Patient also reports having cough for over 2 weeks. He reports he was given a prescription for azithromycin which he completed. Cough was productive of green sputum. He also reports some associated mild shortness of breath. No fever or chills. He did mention decreased sensation of taste but no loss of sense of smell. He did have 1 episode of post-tussive emesis a few days earlier. Unfortunately, he reports the diarrhea has been ongoing for at least 10 days. Having had previous C difficile colitis, he did not feel diarrhea smelled similarly but stool has been watery and light brown in color. He has noticed some blood on the toilet paper but reports that his bottom is raw from the diarrhea. He has also noticed urine has had decreased volume despite taking his home diuretics. He did not take any of his home medications including his insulin for his diabetes for few days prior to presentation. On evaluation in the emergency room he was noted to have acute on chronic renal failure as well as findings of pneumonia addition to his diarrhea. As result, he was admitted for further evaluation and treatment. Course in Hospital: Stool for C difficile toxin was sent upon admission given his history. He was started on IV metronidazole along with IV Levaquin that was also started for pneumonia. Diarrhea did begin to improve with these treatments. C difficile testing did return as positive with patient switched from IV metronidazole to oral fidaxomicin. With this transition, patient was having no diarrheal stools on the day of discharge. Plan to complete a 10 day course of fidaxomicin at home requiring an additional 5 days treatment after discharge. Patient was clearly dehydrated from the diarrhea and also started on IV fluids initially with diuretics held. IV fluids were discontinued on 08/15/2019 due to an increase in shortness of breath with chest x-ray showing some possible fluid overload. Patient was able to maintain fluid status with out IV fluids from
[2019-08-21 06:57] LABS: Glucose Point of Care 290 (65-105)
== END 2019-08-19 19:00 | disposition home or self-care (01) | DRG 194 ==
LOC: ANHED 19:00 → ANH3MEDSUR 21:58
PROVIDERS: Family Medicine; General Practice; Physician Assistant; Admitting Provider Internal Medicine; Emergency Provider Nurse Practitioner; PCP Internal Medicine; Visit Provider Hospitalist
DX: J18.9 Pneumonia, unspecified organism (principal); Z68.44 Body mass index [BMI] 60.0-69.9, adult; N17.9 Acute kidney failure, unspecified; A04.72 Enterocolitis due to Clostridium difficile, not specified as recurrent; Z20.828 Contact with and (suspected) exposure to other viral communicable diseases; Z79.4 Long term (current) use of insulin; E11.22 Type 2 diabetes mellitus with diabetic chronic kidney disease; N18.3 Chronic kidney disease, stage 3 (moderate); I48.91 Unspecified atrial fibrillation; E11.42 Type 2 diabetes mellitus with diabetic polyneuropathy; E11.51 Type 2 diabetes mellitus with diabetic peripheral angiopathy without gangrene; E78.5 Hyperlipidemia, unspecified; Z89.511 Acquired absence of right leg below knee; Z89.612 Acquired absence of left leg above knee; E66.01 Morbid (severe) obesity due to excess calories; E86.0 Dehydration; G47.33 Obstructive sleep apnea (adult) (pediatric)
CPT/HCPCS: 36415; 71045; 74177; 80048; 80053; 81003; 83605; 83690; 83735; 83880; 85025; 85027; 85610; 85730; 87040; 87324; 87635; 93005; 94640; 96361; 96365; 96366; 96367; 96375; 97161; 97165; 97530; 99285; A9270; G0378; J1815; J1956; J2270; J2405; J7030; J7120; Q9967; U0003

== ENCOUNTER 2019-08-22 14:07 | Outpatient (RCR) | payer MEDICARE, OTHER, SELFPAY ==
--- NOTE | 2019-08-22 12:20 | PCPTNOTE ---
Patient:Lester Nguyễn Date of :1960 Wheelchair evaluation: performed 08/22/19 Thank you [facility]. The patient has been evaluated for wheelchair seating and recommendations have been made, with assistance of the DME provider present. The findings have been scanned into the patient's EMR. Please review, sign, date and return this recognition of care provided. I agree with and certify that the following plan for DME equipment is medically necessary. Physician's Name Date
--- NOTE | 2019-08-22 12:29 | PTOPEVAL ---
Thank you for referring Lester Nguyễn to [facility]. Please review, sign, date and return this plan of care MITALI. Pt seen today for wheelchair clinic to assess needs for power wheelchair replacement. I agree with and certify that the following plan of care is medically necessary. Referring Physician Date Attending Provider: PHYSICIAN NOT ON STAFF Referring Provider: *PT Outpatient Evaluation Start: 08/22/19 12:23 Freq: Status: Active Protocol: Document 08/22/19 10:30 CAP (Rec: 08/22/19 12:28 CAP [id number]) Therapy Assessment Status Assessment Status Assessment Status Evaluation Outpatient Past Medical History Past Medical History Source of Past Medical History Patient,Recalled from Previous Visit, Confirmed with Patient /Family Neurological History Hx Neurological Disorders No Significant History Cardiovascular History Hx Atrial Fibrillation Yes Hx Congestive Heart Failure Yes Hx Hypercholesterolemia Yes Hx Hypertension Yes Respiratory History Hx Chronic Obstructive Pulmonary Disease Yes (COPD) Hx Pneumonia Yes Hx Sleep Apnea Yes Gastrointestinal History Hx Appendectomy Yes Hx Cholecystectomy Yes Genitourinary History Hx Dialysis Yes Musculoskeletal History Hx Amputation Yes Hematological History Hx Hematological Disorders No Significant History Endocrine History Hx Diabetes Yes: cgm HEENT History Hx Cataracts Yes Hx Tonsillectomy Yes Integumentary History Hx Skin Disorders No Significant History Reproductive History Hx Reproductive Disorders No Significant History Psychosocial History Hx Psychiatric Disorders No Significant History Pain History History of Any Previous or Ongoing No Significant History Instance of Pain Anesthesia History Hx Anesthesia Reactions No Significant History Other History Hx Clostridium Difficile Yes Pain Assessment Timing of Pain Assessment Timing of Pain Assessment Assessment Pain Scale Pain Scale Used Numeric (1 - 10) Self Report Pain Assessment Bilateral Shoulder(s) Reported Pain Level 5 Bilateral Buttock(s) Reported Pain Level 8 Pain Frequency Chronic Pain Score Pain Score 8,5: Self Report PT Clinical Summary Clinical Summary Protocol: PTEVCODE PT Clinical Summary Wheelchair seated clinic performed by PT and equipment provider. See wc attachment for detail
== END 2019-10-04 14:14 | disposition home or self-care (01) ==
LOC: ANHPT 14:07
PROVIDERS: PCP Internal Medicine
DX: Z89.511 Acquired absence of right leg below knee (principal); Z89.612 Acquired absence of left leg above knee; Z74.09 Other reduced mobility
CPT/HCPCS: 97163

== ENCOUNTER 2019-11-15 15:19 | Inpatient (IN) | payer MEDICARE, OTHER, SELFPAY ==
--- NOTE | ~2019-11-15 | US_ITS ---
EXAMINATION: US renal BI DATE: 11/18/2019 13:02 INDICATION: Abnormal kidney function. TECHNIQUE: Multiple ultrasound grayscale images of the kidneys were obtained. COMPARISON: Ultrasound 06/29/2018, CT abdomen and pelvis 11/15/2019 FINDINGS: The right kidney measures 12.8 x 6.1 x 6.6 cm. The left kidney measures 12.6 x 6.1 x 7.1 cm. The kidn eys demonstrate normal parenchymal echogenicity. There is no hydronephrosis. The bladder is normal. IMPRESSION: 1. Normal kidneys. No hydronephrosis. Reviewed, dictated and finalized at location E.
--- NOTE | ~2019-11-15 | XR_ITS ---
EXAMINATION: XR abdomen/kub 1V DATE: 11/19/2019 15:33 INDICATION: Diarrhea. TECHNIQUE: A supine view of the abdomen on 4 radiographs was obtained. COMPARISON: CT abdomen and pelvis 11/15/2019 FINDINGS: There is gaseous distention of the colon. There is a paucity of stool in colon. There is di lated small bowel in left abdomen. IMPRESSION: 1. Dilated small and large bowel, consistent with adynamic ileus. Reviewed, dictated and finalized at location A.
--- NOTE | ~2019-11-15 | CT_ITS ---
EXAMINATION: CT abdomen pelvis w con INDICATION: Vomiting and abdominal pain TECHNIQUE: Computed tomographic images of the abdomen and pelvis were obtained after the administrati on of 100 cc of Omnipaque 350 intravenous contrast. The dose-length product (DLP) was 1520.74 mGy-cm. Automated exposure control and iterative reconstruction technique were employed. COMPARISON: 08/12/2019 FINDINGS: There is been interval resolution of the previously described masslike opacity of the left lower lobe, most consistent with resolved pneumonia. There is a small right pleural effusion. The pre viously described left pleural effusion has resolved. The heart size is normal. Calcified coronary ar saniya atherosclerosis is noted. The spleen remains enlarged measuring up to 18.3 cm. Within the limita tions of noncontrast examination, the liver, pancreas, and adrenal glands are normal. Stones are pres ent in the nondistended gallbladder. The kidneys are unremarkable. There is calcified atherosclerosis of the aorta and many of the other arteries. No pathologically enlarged abdominal or pelvic lymph no valery are identified. There are bridging osteophytes at multiple levels in the lower thoracic spine, co nsistent with diffuse idiopathic skeletal hyperostosis (DISH). There is mild lumbar spondylosis. Ther e is a tiny fat-containing umbilical hernia. IMPRESSION: 1. No acute cardiopulmonary abnormality. 2. Cholelithiasis without evidence of cholecystitis. 3. Unchanged splenomegaly, likely related to body habitus. 4. Resolved left lower lobe pneumonia and left pleural effusion. 5. Small right pleural effusion. Reviewed, dictated and finalized at location A.
[2019-11-15 15:21] VITALS: BP 156/47; PULSE 87; RESP 18; TEMP 38.1; O2SAT 97
[2019-11-15 15:59] LABS: Basophils Absolute Auto 0.1 K/mm3 (0.0-0.1); Basophils Percent Auto 0.4 % (0.2-1.2); Hematocrit 39.3 % (42.0-52.0); Hemoglobin 13.1 g/dL (14.0-18.0); Immature Granulocyte Absolute 0.08 K/mm3 (0.00-0.031); Immature Granulocyte Percent A 0.5 % (0-0.5); Lymphocytes Absolute Auto 1.01 K/mm3 (0.9-3.2); Lymphocytes Percent Auto 6.2 % (18.3-44.2); Mean Corpuscular HGB Conc 33.3 g/dl (32-36); Mean Corpuscular Hemoglobin 29.1 pg (26-34); Mean Corpuscular Volume 87.3 fl (80-100); Mean Platelet Volume 9.5 fl (7.4-10.4); Monocytes Absolute Auto 1.1 K/mm3 (0.1-0.6); Neutrophils Absolute Auto 13.9 K/mm3 (1.3-6.7); Neutrophils Percent Auto 85.9 % (45.5-73.1); Platelet Count Result 154 k/mm3 (150-375); Red Cell Distribution Width 14.3 % (11.5-14.5); White Blood Count 16.2 K/mm3 (4.5-10.0)
[2019-11-15] MEDS: SODIUM CHLORIDE 0.9% IV 1,000 ML 999 ML IV CONT (16:05)
[2019-11-15] MEDS: METOCLOPRAMIDE HCL INJ 10 MG/2 ML VIAL IV PUSH (16:05)
[2019-11-15] MEDS: MORPHINE SULFATE 4 MG/ML INJ IV PUSH (16:05)
[2019-11-15 16:18] LABS: Alanine Aminotransferase 18 U/L (4-50); Alkaline Phosphatase 91 U/L (38-126); Aspartate Amino Transferase 23 U/L (17-59); Bilirubin,Total 1.1 mg/dL (0.2-1.3); Blood Urea Nitrogen 21 mg/dL (9-20); Calcium 8.6 mg/dL (8.4-10.2); Carbon Dioxide 25 mmol/L (22-30); Chloride 98 mmol/L (98-107); Estimated Glomerular Filt Rate > 60; Glucose 245 mg/dL (75-110); Sodium 136 mmol/L (137-145)
[2019-11-15 16:25] VITALS: BP 125/56; PULSE 89; RESP 18; O2SAT 98
[2019-11-15 16:29] LABS: Add Urine Microscopic? YES; Appearance Urine Clear (Clear); Bacteria Urine Trace /hpf; Bilirubin Urine Negative (Negative); Blood Urine 1+ (Negative); Color Urine Yellow (Yellow); Glucose Urine UA 3+ mg/dL (Negative); Ketones Urine 1+ mg/dL (Negative); Leukocyte Esterase Ur Negative LEU/UL (Negative); Nitrate Urine Negative (Negative); Protein Urine 3+ mg/dL (Negative); RBC Urine 0-2 /hpf (0-2); Renal Epithelial Cells Urine Rare /hpf (None Seen); WBC Urine 0-3 /hpf
--- NOTE | 2019-11-15 16:48 | ED.NAVMDI ---
HPI - Nausea/Vomiting/Diarrhea General Chief complaint: Nausea/Vomiting/Diarrhea Stated complaint: n/v/d Time Seen by Provider: 11/15/19 15:30 History of Present Illness HPI Narrative: Patient arrives via EMS for severe diarrhea. He is a bilateral leg amputee, and has stool everywhere. He is unable to care for himself to clean himself up. He says he has mild abdominal discomfort with this but not necessarily pain. He denies fever, but his temperature is mildly elevated at 100.6. He does tell us that he has had C. difficile in the past. MD elicited complaint: diarrhea Pertinent past history: abdominal surgery Onset (ago): hour(s) Description of vomiting: continuous Description of diarrhea: semi-solid Associated abdominal pain: Yes Location of pain: diffuse Related Data Home Medications Medication Instructions Recorded Confirmed apixaban 5 mg tablet 5 mg PO BID 05/14/19 08/12/19 carvedilol phosphate 80 mg 40 mg PO DAILY 05/14/19 08/12/19 capsule,[id number] multiphase digoxin 250 mcg (0.25 mg) tablet 250 mcg PO DAILY 05/14/19 08/12/19 gabapentin 600 mg tablet 800 mg PO TID 05/14/19 08/12/19 insulin regular hum U-500 conc See Rx Instructions .ROUTE .COMPLEX 05/14/19 08/12/19 Livalo 4 mg PO DAILY 08/12/19 08/12/19 losartan 50 mg PO DAILY 08/12/19 08/12/19 spironolactone 25 mg PO DAILY 08/12/19 08/12/19 torsemide 20 mg PO QAM 08/12/19 08/12/19 Allergies Allergy/AdvReac Type Severity Reaction Status Date / Time meperidine Allergy Unknown Other Verified 11/15/19 15:47 Review of Systems Review of Systems: Narrative: CONSTITUTIONAL: Denies fever, chills, or sweats. EYES: Denies visual changes, redness, or discharge. ENT: Denies rhinorrhea, congestion, sore throat, or otalgia. CARDIOVASCULAR: Denies chest pain, palpitations, or edema. RESPIRATORY: Denies cough or dyspnea. GASTROINTESTINAL: He has some abdominal pain, and diarrhea. GENITOURINARY: Denies dysuria or hematuria. SKIN: Denies rash or itching. MUSCULOSKELETAL: Denies back pain, joint pain, or myalgia. NEUROLOGIC: Denies headache, numbness, or weakness. . All systems reviewed & are unremarkable except as noted in HPI and below PMFSH Past Medical History Medical History Atrial fibrillation On chronic anticoagulation with Eliquis Chronic kidney disease, stage 3 Diabetes mellitus type 2 in obese Diabetic nephropathy Diabetic peripheral neuropathy Diastolic dysfunction Last echocardiogram March 2018 demonstrated normal EF of 65-70 with moderate LVH and severe left atrial enlargement Hyperlipidemia Obstructive sleep apnea treated with BiPAP Peripheral vascular disease Surgical History Surgical History History of appendectomy History of bilateral carpal tunnel release History of left above knee amputation History of right below knee amputation Social History Social History Social History: Primary care physician: Dr. Beltran Reyes Code status: Full code Smoking status: Never smoker Alcohol intake: current Substance use: never Additional occupation/education comments: Disabled Gender identity (if verbalized by the patient): Male Spiritual care concerns: No Agree to blood products: Yes Exam Narrative: Exam Narrative: GENERAL: Morbidly obese, feces under the fingernails, unkempt cowan HEAD: Normocephalic, atraumatic. EYES: PERRLA and EOMI. ENT: Nares clear, no rhinorrhea or epistaxis. Mucous membranes moist. NECK: Supple. CHEST: Clear to auscultation. No respiratory distress. HEART: Regular rate and rhythm. No murmur heard. Normal peripheral pulses. ABDOMEN: Soft, nontender, nondistended, normal active bowel sounds. Well-healed scar. Rash on the buttocks and the upper thighs. EXTREMITIES: Normal range of motion. No edema. SKIN: Warm, dry, no rash. NEURO: No
[2019-11-15 19:20] VITALS: BP 135/63; PULSE 87; RESP 18; O2SAT 100
--- NOTE | 2019-11-15 19:56 | ADMGEN ---
This patient, Lester Nguyễn, was admitted to Medical Room 241-01. Patient/family oriented to hospital policies and general routines including ID bracelet, bed and alarms, visiting hours, pain management, procedures, bathroom and other care routines, personal items, smoking policy, room service/diet, and visiting hours. Valuables list has been completed. Information on how to activate the Rapid Response Team has been discussed. Patient/Family are encouraged to report perceived risks to care and to ask questions if they do not understand what they are told or what they should do.
[2019-11-15 20:00] VITALS: BMI 61.2
[2019-11-15] MEDS: ONDANSETRON INJ 4 MG/2 ML VIAL IV PUSH (20:09)
[2019-11-15] MEDS: SODIUM CHLORIDE 0.9% IV 1,000 ML 125 ML IV CONT (20:09)
--- NOTE | 2019-11-15 20:15 | PM.IMHP ---
H&P: HPI History of Present Illness Chief complaint: diarrhea for 3 days Narrative: Date and time of patient contact: 11/15/2019 at 8:30 p.m. Lester Nguyễn is a 59 year old male with a past medical history of diabetes mellitus, chronic kidney disease, bilateral lower extremity amputations, and C diff colitis who presented to the ER via EMS due to 3 days of incontinent diarrheal stools. the patient reports that he has been having 4-5 episodes of diarrhea each day. His stools are watery and light brown in color. He has been having some periumbilical abdominal pain that is constant and worse with palpation. The pain is a 7/10 in intensity. His stools are similar to whenever he had C diff back in July. He denied having any fevers or chills at home but once he arrived to the hospital he had a fever of 100.6. He denies any dysuria or hematuria. He was becoming concerned because his urine output had decreased over the last 24 hours. His blood sugars have been ranging between 140 and 300 over the last couple of days. He has not been taking any of his home insulin. He had 1 episode of nausea today. He denies any actual vomiting. He denies any recent ill contacts. He has not been having any shortness of breath, cough or congestion. He denies any chest pain or palpitations. He has not been on any antibiotics since he finished his Levaquin August 20. He finished a 14 day course of Dificid for C diff colitis with his last dose in early August. He reports some mild headache without any eliciting or relieving factors. He somehow injured the 3rd finger on his right hand but he does not remember the injury. His fingernail is split. His fingers are discolored with stool. Source of information: Past medical records and patient report. The patient is a fair historian. Review of Systems Review of Systems: Narrative: 12 systems were reviewed with pertinent positives and negatives per HPI. Except as documented in the HPI, all other systems were reviewed and are negative. [facility] Past Medical History Medical History (Updated 11/15/19 @ 21:34 by Marielle Moore DO) Atrial fibrillation On chronic anticoagulation with Eliquis Chronic kidney disease, stage 3 Diabetes mellitus type 2 in obese Diabetic nephropathy Diabetic peripheral neuropathy Diastolic dysfunction Last echocardiogram March 2018 demonstrated normal EF of 65-70 with moderate LVH and severe left atrial enlargement Hyperlipidemia Obstructive sleep apnea treated with BiPAP patient is noncompliant with his BiPAP Peripheral vascular disease Surgical History Surgical History History of appendectomy History of bilateral carpal tunnel release History of left above knee amputation History of right below knee amputation Social History Social History (Updated 11/15/19 @ 21:33 by Marielle Moore DO) Social History: Primary care physician: Dr. 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 He is on disability due to his peripheral vascular disease and bilateral lower extremity amputations. Gender identity (if verbalized by the patient): Male Spiritual care concerns: No Agree to blood products: Yes Meds Home Medications and Allergies Home Medications Medication Instructions Recorded Confirmed Type apixaban 5 mg tablet 5 mg PO BID 05/14/19 08/12/19 History carvedilol phosphate 80 mg 40 mg PO DAILY 05/14/19 08/12/19 History capsule,[id number] multiphase digoxin 250 mcg (0.25 mg) tablet 250 mcg PO DAILY 05/14/19 08/12/19 History gabapentin 600 mg tablet 800 mg PO TID 05/14/19 08/12/19 History insulin regular hum U-500 conc See Rx Instructions .ROUTE .COMPLEX 05/14/19 08/12/19 History Livalo 4 mg PO DAILY 08/12/19 08/12/19
[2019-11-15 22:00] VITALS: BP 144/53; PULSE 89; RESP 20; TEMP 36.7; O2SAT 98
[2019-11-15] MEDS: GABAPENTIN 400 MG CAPSULE 800 MG PO (22:59)
[2019-11-15] MEDS: APIXABAN 5 MG TABLET PO (23:00)
[2019-11-15] MEDS: FIDAXOMICIN 200 MG TABLET PO (23:00)
[2019-11-15] MEDS: INSULIN GLARGINE (*BKC) 100 UNITS/ML 30 UNITS SUB-Q (23:16)
[2019-11-15 23:21] LABS: Glucose Point of Care 217 (65-105)
[2019-11-16] VITALS (9 sets, daily range): BP systolic 117–172; BP diastolic 53–63; PULSE 81–104; RESP 17–20; TEMP 36.6–37.8; O2SAT 96–100
[2019-11-16] MEDS: SODIUM CHLORIDE 0.9% IV 1,000 ML 125 ML IV CONT (04:48)
[2019-11-16 08:42] LABS: Basophils Absolute Auto 0.1 K/mm3 (0.0-0.1); Basophils Percent Auto 0.4 % (0.2-1.2); Hematocrit 36.2 % (42.0-52.0); Immature Granulocyte Percent A 0.8 % (0-0.5); Lymphocytes Absolute Auto 1.01 K/mm3 (0.9-3.2); Lymphocytes Percent Auto 7.7 % (18.3-44.2); Mean Corpuscular HGB Conc 33.1 g/dl (32-36); Mean Corpuscular Hemoglobin 28.8 pg (26-34); Mean Corpuscular Volume 86.8 fl (80-100); Mean Platelet Volume 9.7 fl (7.4-10.4); Monocytes Absolute Auto 0.9 K/mm3 (0.1-0.6); Monocytes Percent Auto 6.7 % (2.6-8.5); Neutrophils Absolute Auto 11.1 K/mm3 (1.3-6.7); Neutrophils Percent Auto 84.4 % (45.5-73.1); Platelet Count Result 129 k/mm3 (150-375); Red Blood Count 4.17 M/mm3 (4.6-6.20); Red Cell Distribution Width 14.6 % (11.5-14.5); White Blood Count 13.1 K/mm3 (4.5-10.0)
[2019-11-16 08:52] LABS: Glucose Point of Care 228 (65-105)
[2019-11-16 08:53] LABS: Anion Gap 12.4 mmol/L (7-16); Blood Urea Nitrogen 21 mg/dL (9-20); Calcium 7.8 mg/dL (8.4-10.2); Carbon Dioxide 21 mmol/L (22-30); Chloride 102 mmol/L (98-107); Estimated CRCL calculation 101 ml/min; Estimated Glomerular Filt Rate > 60; Glucose 234 mg/dL (75-110); Potassium 3.4 mmol/L (3.4-5.0); Sodium 132 mmol/L (137-145)
[2019-11-16] MEDS: APIXABAN 5 MG TABLET PO ×2 (09:53→16:36)
[2019-11-16] MEDS: LOSARTAN POTASSIUM 50 MG TABLET PO (09:53)
[2019-11-16] MEDS: FIDAXOMICIN 200 MG TABLET PO ×2 (09:53→20:58)
[2019-11-16] MEDS: DIGOXIN TAB 125 MCG TABLET PO (09:53)
[2019-11-16] MEDS: SPIRONOLACTONE 25 MG TABLET PO (09:54)
[2019-11-16] MEDS: TORSEMIDE 20 MG TABLET PO (09:54)
[2019-11-16] MEDS: GABAPENTIN 400 MG CAPSULE 800 MG PO ×3 (09:54→18:17)
[2019-11-16] MEDS: INSULIN ASPART (*BKC) 100 UNITS/ML SUB-Q ×3 (09:58→16:59)
[2019-11-16] MEDS: INSULIN GLARGINE (*BKC) 100 UNITS/ML 30 UNITS SUB-Q ×2 (09:59→18:18)
--- NOTE | 2019-11-16 11:21 | PM.IMPN ---
Progress Note: A&P Assessment and Plan (1) Diarrhea: Qualifiers: Diarrhea type: unspecified type Qualified Code(s): R19.7 - Diarrhea, unspecified Code(s): R19.7 - Diarrhea, unspecified Status: Acute Assessment and Plan: The patient has had multiple bouts of C diff in the past. Denies being on any recent antibiotics. Suspicious for recurrent C diff colitis. CT abdomen and not show any acute abnormality. Will place the patient on antibiotic therapy with Dificid. Stool cultures and C diff testing Have been sent and are pending results continue monitoring patient's diarrhea. He is on isolation for possible C diff infection. (2) Diabetes mellitus with hyperglycemia: Code(s): E11.65 - Type 2 diabetes mellitus with hyperglycemia Status: Acute Assessment and Plan: Long history of diabetes, will check Hemoglobin A1c in the morning. Patient has moderate hyperglycemia with serum glucose of 234 this morning. Will resume Lantus at a decreased dose down the 30 units subq b.i.d. from his home dose of 90 units. Continue monitoring glucose levels Accu-Cheks a.c. HS, hypoglycemia protocol. Moderate sliding scale insulin. (3) Fever: Code(s): R50.9 - Fever, unspecified Status: Acute Assessment and Plan: Likely due to the patient's infectious diarrhea. Will check blood cultures to rule out other source of infection. he has been afebrile and normal vitals today. leukocytosis is still elevated at 13,000 thousand. Will continue monitoring his symptoms. (4) Atrial fibrillation: Qualifiers: Atrial fibrillation type: unspecified Qualified Code(s): I48.91 - Unspecified atrial fibrillation Code(s): I48.91 - Unspecified atrial fibrillation Status: Acute Assessment and Plan: patient sounds to be in normal sinus rhythm at this time with a controlled heart rate. continue Eliquis during admission. (5) Diastolic dysfunction: Code(s): I51.89 - Other ill-defined heart diseases Status: Acute Assessment and Plan: he is euvolemic at this time and receiving some IV fluids due to some dehydration from diarrhea. Continue with his home medications and torsemide and spironolactone. Will discontinue IV fluids at this time. Continue monitoring patient's volume status, input and output. (6) Chronic kidney disease, stage 3: Code(s): N18.3 - Chronic kidney disease, stage 3 (moderate) Status: Acute Assessment and Plan: creatinine is currently at baseline which is between 1.1 and 0.8. Creatinine was 1.0 this morning. Continue monitoring renal function and electrolytes and will discontinue IV fluids at this time he appears to be euvolemic. Time Spent With Patient Time with patient: 25 - 35 minutes Subjective Date/time seen: 11/16/19 11:21 Interval history: Date of service 11/16/2019: the patient states he is feeling slightly better today but is still having diarrhea. he does report some improvement to his abdominal cramping since arrival. He denies any more fevers or chills. He does not have much of an appetite but it has been able to tolerate fluids and some food without any nausea or vomiting. He denies any chest pain, shortness of breath, cough, swelling to his lower extremities or any other symptoms at this time. Review of Systems Review of Systems: All systems reviewed & are unremarkable except as noted in HPI and below Exam Narrative: Exam Narrative: General: 59-year-old man laying flat in bed Watching TV. Appears comfortable. In no acute distress. Skin: No jaundice or cyanosis
[2019-11-16 11:39] LABS: Glucose Point of Care 290 (65-105)
[2019-11-16] MEDS: TOLNAFTATE 1% POWDER 45 GM BTL 1 APPLIC TOPICAL ×2 (16:37→20:59)
[2019-11-16 16:54] LABS: Glucose Point of Care 302 (65-105)
[2019-11-16 23:32] LABS: Glucose Point of Care 254 (65-105)
[2019-11-17] VITALS (7 sets, daily range): BP systolic 105–131; BP diastolic 41–64; PULSE 65–90; RESP 16–20; TEMP 36.7–37.2; O2SAT 97–99
[2019-11-17 05:19] LABS: Basophils Percent Auto 0.3 % (0.2-1.2); Hematocrit 33.1 % (42.0-52.0); Hemoglobin 11.2 g/dL (14.0-18.0); Immature Granulocyte Absolute 0.04 K/mm3 (0.00-0.031); Immature Granulocyte Percent A 0.4 % (0-0.5); Lymphocytes Absolute Auto 1.26 K/mm3 (0.9-3.2); Lymphocytes Percent Auto 13.3 % (18.3-44.2); Mean Corpuscular HGB Conc 33.8 g/dl (32-36); Mean Corpuscular Hemoglobin 28.8 pg (26-34); Mean Corpuscular Volume 85.1 fl (80-100); Mean Platelet Volume 9.7 fl (7.4-10.4); Monocytes Percent Auto 10.2 % (2.6-8.5); Neutrophils Absolute Auto 7.2 K/mm3 (1.3-6.7); Neutrophils Percent Auto 75.8 % (45.5-73.1); Platelet Count Result 126 k/mm3 (150-375); Red Blood Count 3.89 M/mm3 (4.6-6.20); Red Cell Distribution Width 14.6 % (11.5-14.5); White Blood Count 9.5 K/mm3 (4.5-10.0)
[2019-11-17 05:31] LABS: Anion Gap 12.9 mmol/L (7-16); Blood Urea Nitrogen 34 mg/dL (9-20); Calcium 7.7 mg/dL (8.4-10.2); Carbon Dioxide 21 mmol/L (22-30); Chloride 99 mmol/L (98-107); Estimated CRCL calculation 55 ml/min; Estimated Glomerular Filt Rate 37; Glucose 229 mg/dL (75-110); Magnesium 1.6 mg/dL (1.6-2.3); Potassium 2.9 mmol/L (3.4-5.0); Sodium 130 mmol/L (137-145)
[2019-11-17 07:50] LABS: Glucose Point of Care 254 (65-105)
[2019-11-17] MEDS: POTASSIUM CHLORIDE 20 MEQ TABLET 60 MEQ PO (08:17)
[2019-11-17] MEDS: GABAPENTIN 400 MG CAPSULE 800 MG PO ×3 (08:19→17:05)
[2019-11-17] MEDS: FIDAXOMICIN 200 MG TABLET PO ×2 (08:19→20:22)
[2019-11-17] MEDS: APIXABAN 5 MG TABLET PO ×2 (08:19→17:05)
[2019-11-17] MEDS: MAGNESIUM SULFATE 3GM/D5W100ML 3 GM/100 ML BAG IVPB (08:20)
[2019-11-17] MEDS: TOLNAFTATE 1% POWDER 45 GM BTL 1 APPLIC TOPICAL ×2 (08:21→20:24)
[2019-11-17] MEDS: INSULIN ASPART (*BKC) 100 UNITS/ML SUB-Q ×3 (08:28→17:05)
[2019-11-17] MEDS: INSULIN GLARGINE (*BKC) 100 UNITS/ML 40 UNITS SUB-Q ×2 (08:29→20:22)
--- NOTE | 2019-11-17 09:29 | PM.IMPN ---
Progress Note: A&P Assessment and Plan (1) Diarrhea: Qualifiers: Diarrhea type: unspecified type Qualified Code(s): R19.7 - Diarrhea, unspecified Code(s): R19.7 - Diarrhea, unspecified Status: Acute Assessment and Plan: The patient has had multiple bouts of C diff in the past. Denies being on any recent antibiotics. Suspicious for recurrent C diff colitis. CT abdomen and not show any acute abnormality. Will place the patient on antibiotic therapy with Dificid. Stool cultures came back growing Salmonella and will be started on IV Ceftriaxone His C. diff test came back indeterminate and they sent it for further testing for PCR. He will remain in isolation at this time. continue monitoring patient's diarrhea. (2) Acute worsening of stage 3 chronic kidney disease: Code(s): N18.3 - Chronic kidney disease, stage 3 (moderate) Status: Acute Assessment and Plan: creatinine was at baseline which is between 1.1 and 0.8. Creatinine elevated overnight from 1.0-1.9. This is most likely secondary to dehydration from his profuse diarrhea. Will hold his SHELLY-inhibitor, diuretics and start IV fluids for rehydration. Also will consult Nephrology onto the case for which he sees Dr. Castle as an outpatient. Continue monitoring renal function and electrolytes and will discontinue IV fluids at this time he appears to be euvolemic. (3) Diabetes mellitus with hyperglycemia: Code(s): E11.65 - Type 2 diabetes mellitus with hyperglycemia Status: Acute Assessment and Plan: Long history of diabetes, will check Hemoglobin A1c in the morning. Patient has moderate hyperglycemia with serum glucose of 229 this morning. I increased his Lantus to 40 units subcu b.i.d. his home dose of Lantus was 90 units subcu b.i.d. Continue monitoring glucose levels Accu-Cheks a.c. HS, hypoglycemia protocol. Moderate sliding scale insulin. (4) Fever: Code(s): R50.9 - Fever, unspecified Status: Acute Assessment and Plan: Likely due to the patient's infectious diarrhea. Will check blood cultures to rule out other source of infection. he has been afebrile and normal vitals today. leukocytosis normalized today at 9500. Will continue monitoring his symptoms. (5) Atrial fibrillation: Qualifiers: Atrial fibrillation type: unspecified Qualified Code(s): I48.91 - Unspecified atrial fibrillation Code(s): I48.91 - Unspecified atrial fibrillation Status: Acute Assessment and Plan: patient sounds to be in normal sinus rhythm at this time with a controlled heart rate. continue Eliquis during admission. (6) Diastolic dysfunction: Code(s): I51.89 - Other ill-defined heart diseases Status: Acute Assessment and Plan: he is euvolemic at this time and receiving some IV fluids due to some dehydration from diarrhea. Held his diuretic medication because he is dehydrated today with an elevated creatinine. Continue IV fluids and monitor volume status. Continue monitoring patient's volume status, input and output. Time Spent With Patient Time with patient: 25 - 35 minutes Subjective Date/time seen: 11/17/19 09:29 Interval history: Date of service 11/17/2019: the patient states he is feeling slightly better today but is still having diarrhea. he does report some improvement to his abdominal cramping since arrival. He denies any more fevers or chills. He is eating and drinking better today. He denies any chest pain, shortness of breath, cough,Nausea, vomiting, swelling to his lower extremities or any other
[2019-11-17] MEDS: LACTATED RINGERS 1,000 ML 100 ML IV CONT ×2 (09:49→18:58)
[2019-11-17 11:50] LABS: Glucose Point of Care 317 (65-105)
[2019-11-17 14:11] LABS: Magnesium 1.6 mg/dL (1.6-2.3); Potassium 2.9 mmol/L (3.4-5.0)
--- NOTE | 2019-11-17 15:50 | PM.CNNEP ---
Assessment and Plan Assessment and plan (1) Chronic kidney disease, stage 3: Code(s): N18.3 - Chronic kidney disease, stage 3 (moderate) Status: Acute Assessment and Plan: the patient has chronic kidney disease. His creatinine is normal but he does have some protein in the urine. He has been evaluated by Dr. Castle in the past and found have diabetic nephropathy. He also has hypertension and probably has vascular disease as well contributing to this. (2) Acute renal failure superimposed on stage 3 chronic kidney disease: Qualifiers: Acute renal failure type: unspecified Qualified Code(s): N17.9 - Acute kidney failure, unspecified; N18.3 - Chronic kidney disease, stage 3 (moderate) Code(s): N17.9 - Acute kidney failure, unspecified; N18.3 - Chronic kidney disease, stage 3 (moderate) Status: Acute Assessment and Plan: The patient has acute kidney injury. His creatinine was normal on admission. He received contrast in the emergency room For his CT scan. The CT scan was of course very necessary and his creatinine was normal. It is possible that he has some component of acute kidney injury from the contrast the patient does have a low platelet count. He has Salmonella in his stool culture. it is remotely possible that this is H U.S. but I think it is unlikely. He had severe diarrhea for for 5 days before coming in so I would have thought that the creatinine would have risen and platelets would have dropped before this. I also looked at his smear myself and I did not see she is to sites. I asked to look at the smear but it is Tuesday and I do not think he is here. We can get an LDH to be sure. If his platelet count drops again tomorrow we can have Hematology see the patient. (3) Diarrhea: Qualifiers: Diarrhea type: unspecified type Qualified Code(s): R19.7 - Diarrhea, unspecified Code(s): R19.7 - Diarrhea, unspecified Status: Acute Assessment and Plan: The patient has severe diarrhea. He has a background of C diff colonization. Now he has Salmonella. Hospitalists are treating this week with quinolones. (4) Diabetes mellitus with hyperglycemia: Code(s): E11.65 - Type 2 diabetes mellitus with hyperglycemia Status: Acute Assessment and Plan: On Accu-Cheks and sliding-scale insulin (5) Atrial fibrillation: Qualifiers: Atrial fibrillation type: unspecified Qualified Code(s): I48.91 - Unspecified atrial fibrillation Code(s): I48.91 - Unspecified atrial fibrillation Status: Acute Assessment and Plan: heart rate is well controlled. Will check digitalis level in the morning. (6) DARIN (obstructive sleep apnea): Code(s): G47.33 - Obstructive sleep apnea (adult) (pediatric) Status: Acute History of Present Illness Reason for Consult Consult date: 11/17/19 Chief Complaint Chief complaint: Diarhea,Dehydration,Morbid Obesity,Bilateral History of Present Illness Narrative: Lester is a very pleasant 59-year-old gentleman who has multiple medical problems including chronic kidney disease under the care of Dr. Castle, morbid obesity, diabetes with retinopathy and neuropathy as well as nephropathy, atrial fibrillation on apixaban, hypertension, hyperlipidemia, and chronic C diff colitis. Patient says that he has had diarrhea for months. His stool is never solid. However in the last 3 or 4 days his stools have become more frequent and more voluminous. He has not had any blood. He has not had any fevers at home or chills or sweats. He has a little bit of belly pain in the left upper quadrant is about the same as it has been. with the above symptoms he decided come to the emergency room for evaluation. In the ER he was examined and tests were done. He had a CT scan with contrast. His creatinine at the time was normal. The patient was admitted he was given IV flui
[2019-11-17 16:23] LABS: Glucose Point of Care 276 (65-105)
[2019-11-17 18:27] LABS: Creatine Kinase 325 U/L (55-170); Potassium 3.3 mmol/L (3.4-5.0)
--- NOTE | 2019-11-17 18:47 | PC.NURSE ---
Called patients' pharmacy to verify patient taking PO potassium at home, pharmacy was closed at this time but will open back up tomorrow at 1030.
[2019-11-17] MEDS: POTASSIUM CHLORIDE 20 MEQ TABLET 40 MEQ PO (18:54)
[2019-11-17 21:40] LABS: Glucose Point of Care 304 (65-105)
[2019-11-18] VITALS (7 sets, daily range): BP systolic 109–130; BP diastolic 44–62; PULSE 76–93; RESP 16–22; TEMP 36.4–37; O2SAT 95–99
[2019-11-18 02:17] LABS: Add Urine Microscopic? YES; Appearance Urine Clear (Clear); Bilirubin Urine Negative (Negative); Blood Urine Negative (Negative); Color Urine Yellow (Yellow); Glucose Urine UA Negative (Negative); Hyaline Casts Urine 30-49 /lpf; Ketones Urine Negative (Negative); Leukocyte Esterase Ur Negative LEU/UL (NEGATIVE); Mucus Urine Rare /lpf; Nitrate Urine Negative (Negative); Protein Urine 1+ mg/dL (Negative); RBC Urine 0-2 /hpf (0-2); Specific Grav Ur 1.015 (1.001-1.035); Squamous Epithelial Cell Urine Occasional /hpf (Few); Urobilinogen Urine Negative mg/dL (<2.0); WBC Urine 0-3 /hpf (0-3)
[2019-11-18 02:26] LABS: Creatinine Urine 243.9 mg/dL; Total Protein Urine Random 36 mg/dL
[2019-11-18 02:27] LABS: Sodium Urine Random 26 meq/L
[2019-11-18] MEDS: LACTATED RINGERS 1,000 ML 100 ML IV CONT ×2 (04:38→15:00)
[2019-11-18 07:50] LABS: Glucose Point of Care 269 (65-105)
[2019-11-18] MEDS: INSULIN GLARGINE (*BKC) 100 UNITS/ML 50 UNITS SUB-Q ×2 (07:53→20:33)
[2019-11-18] MEDS: INSULIN ASPART (*BKC) 100 UNITS/ML SUB-Q ×3 (07:53→18:44)
[2019-11-18] MEDS: APIXABAN 5 MG TABLET PO ×2 (07:57→16:18)
[2019-11-18] MEDS: GABAPENTIN 400 MG CAPSULE 800 MG PO ×3 (07:57→16:18)
[2019-11-18] MEDS: TOLNAFTATE 1% POWDER 45 GM BTL 1 APPLIC TOPICAL ×2 (07:58→21:00)
[2019-11-18] MEDS: FIDAXOMICIN 200 MG TABLET PO ×2 (07:58→20:29)
--- NOTE | 2019-11-18 11:04 | PM.PNNEP ---
Progress Note: A&P Assessment and Plan (1) Chronic kidney disease, stage 3: Code(s): N18.3 - Chronic kidney disease, stage 3 (moderate) Status: Acute Assessment and Plan: the patient has chronic kidney disease. His creatinine is normal but he does have some protein in the urine. due to diabetes, hypertension, vascular disease. (2) Acute renal failure superimposed on stage 3 chronic kidney disease: Qualifiers: Acute renal failure type: unspecified Qualified Code(s): N17.9 - Acute kidney failure, unspecified; N18.3 - Chronic kidney disease, stage 3 (moderate) Code(s): N17.9 - Acute kidney failure, unspecified; N18.3 - Chronic kidney disease, stage 3 (moderate) Status: Acute Assessment and Plan: The patient has acute kidney injury. CT abdomen showed no obstruction. Urine electrolytes are pre renal. Salmonella in the stool. Blood cultures negative. Platelet count still low but hemoglobin isn't dropping very quickly. Will consult Dr. Montelongo (3) Diarrhea: Qualifiers: Diarrhea type: unspecified type Qualified Code(s): R19.7 - Diarrhea, unspecified Code(s): R19.7 - Diarrhea, unspecified Status: Acute Assessment and Plan: The patient has persistent diarrhea. He does not look toxic. (4) Diabetes mellitus with hyperglycemia: Code(s): E11.65 - Type 2 diabetes mellitus with hyperglycemia Status: Acute Assessment and Plan: On Accu-Cheks and sliding-scale insulin (5) Atrial fibrillation: Qualifiers: Atrial fibrillation type: unspecified Qualified Code(s): I48.91 - Unspecified atrial fibrillation Code(s): I48.91 - Unspecified atrial fibrillation Status: Acute Assessment and Plan: heart rate is well controlled. Dig level pending (6) DARIN (obstructive sleep apnea): Code(s): G47.33 - Obstructive sleep apnea (adult) (pediatric) Status: Acute Subjective Date/time seen: 11/18/19 11:04 Interval history: eLster is feeling about the same today. He still having diarrhea. He estimates this about 8-12 times per day. Sometimes the volume is high and sometimes it is just smear. No belly pain. No chest pain or shortness of breath. He is somewhat uncomfortable because his bed is broken. Review of Systems Cardiovascular: Cardiovascular: Reports no additional cardiovascular complaints Respiratory: Respiratory: Reports no additional respiratory complaints Gastrointestinal: Gastrointestinal: Reports no additional gastrointestinal complaints Genitourinary: Genitourinary: Reports no additional male genitourinary complaints Exam Narrative: Exam Narrative: WDWN in NAD skin no rash head ncat lungs clear cor reg no rub abd BS+ nontender and soft ext no edema. Bilateral Lower extremity amputations. Objective Data Vital Signs Vital Signs: Vital Signs - 24 hr 11/17/19 12:00 11/17/19 18:00 11/17/19 22:00 Temperature 36.8 C 36.7 C 36.7 C Pulse Rate 65 76 89 Respiratory Rate 16 16 20 Blood Pressure 107/41 L 123/53 L 112/44 L Pulse Oximetry 98 98 98 11/18/19 02:31 11/18/19 06:59 11/18/19 07:57 Temperature 36.6 C 36.4 C Pulse Rate 82 93 82 Respiratory Rate 22 H 18 Blood Pressure 118/59 L 117/49 L Pulse Oximetry 99 97 11/18/19 10:00 Temperature 37.0 C Pulse Rate 81 Respiratory Rate 18 Blood Pressure 109/46 L Pulse Oximetry 96 Intake/Output Intake/Output: Intake & Output 11/15/19 11/16/19 11/17/19 11/18/19 23:59 23:59 23:59 23:59 Intake Total 1000 4922 3500 1570 Output Total 415 450 850 Balance 1000 4507 3050 720 Meds/Results Medications: Active Medications Generic Name Dose Route Start Last Admin Trade Name Freq PRN Reason Stop Dose Admin Acetaminophen 650 mg 11/15/19 18:02 Tylenol Tablet PO Q4H PRN Mild Pain (1-3) or Fever Albuterol 2 puff 11/15/19 21:53 Proventil Hfa INHAL
[2019-11-18 12:07] LABS: Basophils Percent Auto 0.4 % (0.2-1.2); Eosinophils Percent Auto 0.6 % (0-4.4); Hematocrit 30.9 % (42.0-52.0); Hemoglobin 10.6 g/dL (14.0-18.0); Immature Granulocyte Absolute 0.03 K/mm3 (0.00-0.031); Immature Granulocyte Percent A 0.4 % (0-0.5); Lymphocytes Absolute Auto 0.93 K/mm3 (0.9-3.2); Lymphocytes Percent Auto 13.1 % (18.3-44.2); Mean Corpuscular HGB Conc 34.3 g/dl (32-36); Mean Corpuscular Hemoglobin 28.9 pg (26-34); Mean Corpuscular Volume 84.2 fl (80-100); Monocytes Absolute Auto 1.2 K/mm3 (0.1-0.6); Monocytes Percent Auto 16.7 % (2.6-8.5); Neutrophils Absolute Auto 4.9 K/mm3 (1.3-6.7); Neutrophils Percent Auto 68.8 % (45.5-73.1); Platelet Count Result 113 k/mm3 (150-375); Red Blood Count 3.67 M/mm3 (4.6-6.20); Red Cell Distribution Width 14.5 % (11.5-14.5); White Blood Count 7.1 K/mm3 (4.5-10.0)
[2019-11-18 12:21] LABS: Anion Gap 11.1 mmol/L (7-16); Blood Urea Nitrogen 43 mg/dL (9-20); Calcium 7.6 mg/dL (8.4-10.2); Carbon Dioxide 21 mmol/L (22-30); Chloride 98 mmol/L (98-107); Estimated CRCL calculation 64 ml/min; Estimated Glomerular Filt Rate 45; Glucose 316 mg/dL (75-110); Potassium 3.1 mmol/L (3.4-5.0); Sodium 127 mmol/L (137-145)
[2019-11-18] MEDS: POTASSIUM CHLORIDE 20 MEQ TABLET 60 MEQ PO (12:40)
[2019-11-18 13:11] LABS: Glucose Point of Care 316 (65-105)
[2019-11-18 13:11] LABS: Digoxin < 0.4 ng/mL (0.8-2.0)
[2019-11-18 13:45] LABS: Lactate Dehydrogenase 488 U/L (313-618)
--- NOTE | 2019-11-18 13:50 | PC.NURSE ---
Jocelynn spoke with [facility] pharmacy, confirmed pt takes KCl PO 20 mEq TID.
--- NOTE | 2019-11-18 14:24 | PM.IMPN ---
Progress Note: A&P Assessment and Plan (1) Diarrhea: Qualifiers: Diarrhea type: unspecified type Qualified Code(s): R19.7 - Diarrhea, unspecified Code(s): R19.7 - Diarrhea, unspecified Status: Acute Assessment and Plan: The patient has had multiple bouts of C diff in the past. Denies being on any recent antibiotics. Suspicious for recurrent C diff colitis. CT abdomen and not show any acute abnormality. Will place the patient on antibiotic therapy with Dificid for treatment of C. diff. His C. diff test came back indeterminate and they sent it for further testing for PCR. Stool cultures came back growing Salmonella and will be started on IV Ceftriaxone since he is hospitalized and having dehydration secondary to profuse diarrhea. He will remain in isolation at this time until official C. diff PCR returns . continue monitoring patient's diarrhea. (2) Acute worsening of stage 3 chronic kidney disease: Code(s): N18.3 - Chronic kidney disease, stage 3 (moderate) Status: Acute Assessment and Plan: creatinine was at baseline which is between 1.1 and 0.8. Creatinine improved slightly from 1.9 to 1.6 with IV fluids and discontinuation of diuretics and ACD. This is most likely secondary to dehydration from his profuse diarrhea. Will hold his SHELLY-inhibitor, diuretics and start IV fluids for rehydration. Nephrology, Dr. Blankenship evaluated the patient and felt his symptoms could be from H. U. S. and urine electrolyes are consistent with Pre-Renal disease. Due to concerns of thrombocytopenia and anemia he consulted Dr. Montelongo Hematology for further evaluation. Continue monitoring renal function and electrolytes. Appreciate Nephrology and Hematology input (3) Diabetes mellitus with hyperglycemia: Code(s): E11.65 - Type 2 diabetes mellitus with hyperglycemia Status: Acute Assessment and Plan: Long history of diabetes Hemoglobin A1c was 7.4% Patient has moderate hyperglycemia with serum glucose of 316 this morning. I increased his Lantus to 50 units subcu b.i.d. We do not want to give him his home dosing which is 90 units subcu b.i.d. to prevent hypoglycemia since he is not eating as much as normal. He was concerned he was not received his meal time insulin for which he does a sliding scale up to 70 Units of U-500. Will start Novolog 20 Units with meals He is feeling like his glucose is not well controlled. Continue monitoring glucose levels Accu-Cheks a.c. HS, hypoglycemia protocol. Moderate sliding scale insulin. (4) Fever: Code(s): R50.9 - Fever, unspecified Status: Acute Assessment and Plan: Likely due to the patient's infectious diarrhea. Blood culture shows no growth at this time. He has been afebrile and normal vitals today. leukocytosis normalized today at 7,100. Will continue monitoring his symptoms. (5) Atrial fibrillation: Qualifiers: Atrial fibrillation type: unspecified Qualified Code(s): I48.91 - Unspecified atrial fibrillation Code(s): I48.91 - Unspecified atrial fibrillation Status: Acute Assessment and Plan: patient sounds to be in normal sinus rhythm at this time with a controlled heart rate. continue Eliquis during admission. (6) Diastolic dysfunction: Code(s): I51.89 - Other ill-defined heart diseases Status: Acute Assessment and Plan: He appears to be euvolemic but labs suggest dehdyration. He is receiving some IV fluids due to some dehydration from diarrhea and diuretics. Held his diuretic medication because he is dehydrated with an elevated creatinine. Continue IV fluids and monitor vo
[2019-11-18] MEDS: INSULIN ASPART (*BKC) 100 UNITS/ML 20 UNITS SUB-Q (18:44)
[2019-11-18 18:48] LABS: Glucose Point of Care 325 (65-105)
[2019-11-18 21:33] LABS: Glucose Point of Care 325 (65-105)
[2019-11-19] VITALS (7 sets, daily range): BP systolic 107–147; BP diastolic 42–60; PULSE 77–92; RESP 16–20; TEMP 36.5–37.2; O2SAT 95–97; BMI 61.2
[2019-11-19] MEDS: LACTATED RINGERS 1,000 ML 100 ML IV CONT ×3 (01:09→22:36)
[2019-11-19 05:51] LABS: Basophils Percent Auto 0.3 % (0.2-1.2); Eosinophils Absolute Auto 0.1 K/mm3 (0-0.3); Eosinophils Percent Auto 0.7 % (0-4.4); Hematocrit 32.3 % (42.0-52.0); Hemoglobin 11.1 g/dL (14.0-18.0); Immature Granulocyte Absolute 0.06 K/mm3 (0.00-0.031); Immature Granulocyte Percent A 0.7 % (0-0.5); Lymphocytes Absolute Auto 1.03 K/mm3 (0.9-3.2); Mean Corpuscular HGB Conc 34.4 g/dl (32-36); Mean Corpuscular Hemoglobin 28.8 pg (26-34); Mean Corpuscular Volume 83.9 fl (80-100); Mean Platelet Volume 10.1 fl (7.4-10.4); Monocytes Absolute Auto 1.3 K/mm3 (0.1-0.6); Monocytes Percent Auto 15.4 % (2.6-8.5); Neutrophils Absolute Auto 6.1 K/mm3 (1.3-6.7); Neutrophils Percent Auto 70.9 % (45.5-73.1); Platelet Count Result 142 k/mm3 (150-375); Red Blood Count 3.85 M/mm3 (4.6-6.20); Red Cell Distribution Width 14.2 % (11.5-14.5); White Blood Count 8.6 K/mm3 (4.5-10.0)
[2019-11-19 06:01] LABS: Add Urine Microscopic? YES; Appearance Urine Clear (Clear); Bilirubin Urine Negative (Negative); Blood Urine 1+ (Negative); Calcium Oxalate Crystals Urine Present /hpf; Color Urine Yellow (Yellow); Glucose Urine UA 1+ mg/dL (Negative); Ketones Urine Negative (Negative); Leukocyte Esterase Ur Negative LEU/UL (Negative); Nitrate Urine Negative (Negative); Protein Urine 1+ mg/dL (Negative); RBC Urine 0-2 /hpf (0-2); Specific Grav Ur 1.014 (1.001-1.035); Squamous Epithelial Cell Urine Rare /hpf (Few); Urobilinogen Urine Negative mg/dL (<2.0); WBC Urine 0-3 /hpf
[2019-11-19 06:09] LABS: Anion Gap 11.1 mmol/L (7-16); Blood Urea Nitrogen 38 mg/dL (9-20); Calcium 7.7 mg/dL (8.4-10.2); Carbon Dioxide 22 mmol/L (22-30); Chloride 98 mmol/L (98-107); Estimated CRCL calculation 79 ml/min; Estimated Glomerular Filt Rate 57; Glucose 225 mg/dL (75-110); Phosphorus 2.5 mg/dL (2.5-4.5); Potassium 3.1 mmol/L (3.4-5.0); Sodium 128 mmol/L (137-145)
[2019-11-19 08:07] LABS: Glucose Point of Care 237 (65-105)
[2019-11-19] MEDS: INSULIN GLARGINE (*BKC) 100 UNITS/ML 50 UNITS SUB-Q (08:26)
[2019-11-19] MEDS: INSULIN ASPART (*BKC) 100 UNITS/ML 20 UNITS SUB-Q ×3 (08:26→17:23)
[2019-11-19] MEDS: INSULIN ASPART (*BKC) 100 UNITS/ML SUB-Q ×2 (08:27→11:55)
[2019-11-19] MEDS: FIDAXOMICIN 200 MG TABLET PO ×2 (08:29→22:36)
[2019-11-19] MEDS: APIXABAN 5 MG TABLET PO ×2 (08:29→17:22)
[2019-11-19] MEDS: POTASSIUM CHLORIDE 20 MEQ TABLET 60 MEQ PO (08:30)
[2019-11-19] MEDS: GABAPENTIN 400 MG CAPSULE 800 MG PO ×3 (08:30→17:22)
[2019-11-19] MEDS: TOLNAFTATE 1% POWDER 45 GM BTL 1 APPLIC TOPICAL ×2 (08:31→22:36)
[2019-11-19] MEDS: SACCHAROMYCES BOULARDII 250 MG CAPSULE PO ×2 (08:31→17:23)
[2019-11-19] MEDS: VANCOMYCIN ORAL 125 MG/2.5 ML SYRUP PO ×4 (09:05→23:59)
[2019-11-19 12:05] LABS: Glucose Point of Care 265 (65-105)
--- NOTE | 2019-11-19 13:29 | PM.IMPN ---
Progress Note: A&P Assessment and Plan (1) C. difficile colitis: Code(s): A04.72 - Enterocolitis due to Clostridium difficile, not specified as recurrent Status: Acute Assessment and Plan: we sent stool cultures for C diff since the patient has had multiple times in the past and felt that he was having similar symptoms even though denies any recent antibiotic use. Stool cultures came back positive for C diff after PCR testing was completed he had been on Fidaxomicin 200 mg Q12hrs since admission to the hospital and has not had much of an improvement when his diarrhea. Today I started him on vancomycin p.o. for the continued treatment of C diff. Continue monitoring patient's stools. Continue antibiotics for treatment of C diff. (2) Salmonella infection: Code(s): A02.9 - Salmonella infection, unspecified Status: Acute Assessment and Plan: Patient's stool cultures came back positive for salmonella infection to his stools. Due to his severe diarrhea and dehydration I started him on IV ceftriaxone. his stools are still very watery at this time he has a rectal tube in place continue monitoring the patient's stools and continue IV ceftriaxone for salmonella infection. (3) Diarrhea: Qualifiers: Diarrhea type: unspecified type Qualified Code(s): R19.7 - Diarrhea, unspecified Code(s): R19.7 - Diarrhea, unspecified Status: Acute Assessment and Plan: The patient has had multiple bouts of C diff in the past. Denies being on any recent antibiotics. Suspicious for recurrent C diff colitis. CT abdomen and not show any acute abnormality on admission. continue treatment for C diff and salmonella infection. Due to continued diarrhea I order a KUB to further evaluate and rule out any other abnormality to his abdomen like Toxic megacolon, ETC. continue monitoring patient's diarrhea. (4) Acute worsening of stage 3 chronic kidney disease: Code(s): N18.3 - Chronic kidney disease, stage 3 (moderate) Status: Acute Assessment and Plan: creatinine was at baseline which is between 1.1 and 0.8. Creatinine improved with IV fluid hydration to 1.30 today. This is most likely secondary to dehydration from his profuse diarrhea. Will hold his SHELLY-inhibitor, diuretics and continue IV fluids Nephrology, Dr. Blankenship evaluated the patient and felt his symptoms could be from H. U. S. and urine electrolyes are consistent with Pre-Renal disease. Due to concerns of thrombocytopenia and anemia Dr. Blankenship consulted Dr. Montelongo Hematology for further evaluation. Continue monitoring renal function and electrolytes. Appreciate Nephrology and Hematology input. (5) Diabetes mellitus with hyperglycemia: Code(s): E11.65 - Type 2 diabetes mellitus with hyperglycemia Status: Acute Assessment and Plan: Long history of diabetes Hemoglobin A1c was 7.4% Patient has moderate hyperglycemia with serum glucose of 225 this morning. I increased his Lantus to 60 units subcu b.i.d. We do not want to give him his home dosing which is 90 units subcu b.i.d. to prevent hypoglycemia since he is not eating as much as normal. He was concerned he was not received his meal time insulin for which he does a sliding scale up to 70 Units of U-500. Continue Novolog 20 Units with meals along with SSI He is feeling like his glucose is not well controlled. Continue monitoring glucose levels Accu-Cheks a.c. HS, hypoglycemia protocol. Moderate sliding scale insulin. (6) Fever: Code(s): R50.9 - Fever, unspecified Status: Acute Assessment and Plan: Likely due to the patient's infectious
--- NOTE | 2019-11-19 13:33 | WPDCDIQUERY2 ---
CDI Query Clarification Request -Diarrhea: Stool cultures came back growing Salmonella and will be started on IV Ceftriaxone since he is hospitalized and having dehydration secondary to profuse diarrhea. has been documented. Please clarify if there is a corresponding diagnosis for above finding.
--- NOTE | 2019-11-19 14:00 | PM.PNNEP ---
Progress Note: A&P Assessment and Plan (1) Chronic kidney disease, stage 3: Code(s): N18.3 - Chronic kidney disease, stage 3 (moderate) Status: Acute Assessment and Plan: the patient has chronic kidney disease. His creatinine is normal but he does have some protein in the urine. due to diabetes, hypertension, vascular disease. (2) Acute renal failure superimposed on stage 3 chronic kidney disease: Qualifiers: Acute renal failure type: unspecified Qualified Code(s): N17.9 - Acute kidney failure, unspecified; N18.3 - Chronic kidney disease, stage 3 (moderate) Code(s): N17.9 - Acute kidney failure, unspecified; N18.3 - Chronic kidney disease, stage 3 (moderate) Status: Acute Assessment and Plan: The patient has acute kidney injury. CT abdomen showed no obstruction. Urine electrolytes are pre renal. Salmonella in the stool. Blood cultures negative. LDH is normal. I doubt this is H U.S.. most likely this is due to contrast and infection. His creatinine has improved. (3) Diarrhea: Qualifiers: Diarrhea type: unspecified type Qualified Code(s): R19.7 - Diarrhea, unspecified Code(s): R19.7 - Diarrhea, unspecified Status: Acute Assessment and Plan: The patient has persistent diarrhea. He does not look toxic. (4) Diabetes mellitus with hyperglycemia: Code(s): E11.65 - Type 2 diabetes mellitus with hyperglycemia Status: Acute Assessment and Plan: On Accu-Cheks and sliding-scale insulin (5) Atrial fibrillation: Qualifiers: Atrial fibrillation type: unspecified Qualified Code(s): I48.91 - Unspecified atrial fibrillation Code(s): I48.91 - Unspecified atrial fibrillation Status: Acute Assessment and Plan: heart rate is well controlled. Dig level Low. (6) DARIN (obstructive sleep apnea): Code(s): G47.33 - Obstructive sleep apnea (adult) (pediatric) Status: Acute Subjective Date/time seen: 11/19/19 14:00 Interval history: Lester is feeling about the same today. He has a fecal incontinence system. Still has some belly discomfort. Review of Systems Cardiovascular: Cardiovascular: Reports no additional cardiovascular complaints Respiratory: Respiratory: Reports no additional respiratory complaints Gastrointestinal: Gastrointestinal: Reports no additional gastrointestinal complaints Genitourinary: Genitourinary: Reports no additional male genitourinary complaints Exam Narrative: Exam Narrative: WDWN in NAD skin no rash head ncat lungs clear cor reg no rub abd BS+ nontender and soft ext Trace presacral edema. Bilateral Lower extremity amputations. Objective Data Vital Signs Vital Signs: Vital Signs - 24 hr 11/18/19 18:00 11/18/19 21:09 11/19/19 00:00 Temperature 36.7 C 36.8 C 37.2 C Pulse Rate 76 76 77 Respiratory Rate 16 20 20 Blood Pressure 130/62 126/57 L 139/53 L Pulse Oximetry 96 97 95 11/19/19 04:00 11/19/19 08:29 11/19/19 10:00 Temperature 36.8 C 36.7 C Pulse Rate 88 92 79 Respiratory Rate 20 19 Blood Pressure 143/58 H 147/60 H Pulse Oximetry 96 97 Intake/Output Intake/Output: Intake & Output 11/16/19 11/17/19 11/18/19 11/19/19 23:59 23:59 23:59 23:59 Intake Total 4922 3500 4510 3612 Output Total 360 867 6810 850 Balance 4507 3050 3260 2762 Meds/Results Medications: Active Medications Generic Name Dose Route Start Last Admin Trade Name Freq PRN Reason Stop Dose Admin Acetaminophen 650 mg 11/15/19 18:02 Tylenol Tablet PO Q4H PRN Mild Pain (1-3) or Fever Albuterol 2 puff 11/15/19 21:53 Proventil Hfa INHALATION QIDRT PRN shortness of breath or wheezing Apixaban 5 mg 11/16/19 09:00 11/19/19 08:29 Eliquis PO 5 mg BID FAROOQ Administration Carvedilol 40 mg 11/16/19 09:00 11/19/19 08:29 Coreg Cr PO 12/16/19 09:01 40 mg DAILY FAROOQ
--- NOTE | 2019-11-19 14:48 | PC.NURSE ---
To Radiology per bed.
--- NOTE | 2019-11-19 15:33 | PC.NURSE ---
Return from Radiology per bed.
--- NOTE | 2019-11-19 16:33 | PCRCNOTE ---
Pt states he does not use his home CPAP.
[2019-11-19] MEDS: POTASSIUM CHLORIDE 20 MEQ TABLET.ER PO (17:22)
--- NOTE | 2019-11-19 17:23 | PDONCCN ---
HPI - Date of Consult Date/Time: 11/19/19 17:23 Requesting Physician: Antoinette Easley PA-C Primary Care Provider: Beltran ReyesMD - Consult Narrative Reason for consult: Anemia and thrombocytopenia Narrative: Lester Nguyễn is a 59 year old male This is a 59-year-old obese male with history of type 2 diabetes chronic kidney stage 3 disease and right-sided BKA and left-sided AKA done previously came into the hospital with 3-4 days history of diarrhea and abdominal cramping. He denies consuming any unusual food. He denies any dysuria and hematuria. Patient was diagnosed with C diff colitis in July of 2019. Patient was treated with antibiotic until August of 2019 for C diff colitis. He has lab shows worsening of anemia and worsening of thrombocytopenia without any bleeding and bruising. He complain of tiredness and fatigue. His stool study shows positive solid Mammoth infection. His x-ray showed resolving pneumonia. He was treated with vancomycin. Denies any other new complaint. Review of Systems - Review of Systems All systems reviewed & are unremarkable except as noted in HPI and bel - Neurologic Reports system reviewed and no additional complaints, except as documented [facility] Medical History: Medical History (Last Reviewed 11/19/19 @ 17:27 by Willi Montelongo MD) Atrial fibrillation On chronic anticoagulation with Eliquis Chronic kidney disease, stage 3 Diabetes mellitus type 2 in obese Diabetic nephropathy Diabetic peripheral neuropathy Diastolic dysfunction Last echocardiogram March 2018 demonstrated normal EF of 65-70 with moderate LVH and severe left atrial enlargement Hyperlipidemia Obstructive sleep apnea treated with BiPAP patient is noncompliant with his BiPAP Peripheral vascular disease Surgical History: Surgical History (Last Reviewed 11/19/19 @ 17:27 by Willi Montelongo MD) History of appendectomy History of bilateral carpal tunnel release History of left above knee amputation History of right below knee amputation Family History: Family History (Last Reviewed 11/19/19 @ 17:27 by Willi Montelongo MD) Sibling Lung cancer Sister Hypertension Father Diabetes mellitus Coronary artery disease Hypertension Other Family history of arthritis - Social History Social History: Social History (Last Reviewed 11/19/19 @ 17:27 by Willi Montelongo MD) Gender Identity: Gender identity (if verbalized by the patient): Male Alcohol Use: Alcohol intake: former Substance Use: Substance use: never Others: Spiritual care concerns: No Agree to blood products: Yes Smoking Status: Smoking status: Never smoker Meds Home Medications Medication Instructions Recorded Confirmed Type apixaban 5 mg tablet 5 mg PO BID 05/14/19 11/15/19 History carvedilol phosphate 80 mg 40 mg PO DAILY 05/14/19 11/15/19 History capsule,ext.[id number] multiphase digoxin 250 mcg (0.25 mg) tablet 125 mcg PO DAILY 05/14/19 11/15/19 History gabapentin 600 mg tablet 800 mg PO TID 05/14/19 11/15/19 History insulin regular hum U-500 conc See Rx Instructions .ROUTE .COMPLEX 05/14/19 11/15/19 History Livalo 4 mg PO DAILY 08/12/19 11/15/19 History losartan 50 mg PO DAILY 08/12/19 11/15/19 History spironolactone 25 mg PO DAILY 08/12/19 11/15/19 History torsemide 20 mg PO QAM 08/12/19 11/15/19 History albuterol sulfate [ProAir HFA] 2 puff INHALATION QID PRN #8.5 gm 08/19/19 11/15/19 Rx Lantus U-100 Insulin 75 unit SUB-Q BID 11/15/19 11/15/19 History potassium chloride 20 meq PO TID 11/19/19 11/19/19 History Allergies Allergy/AdvReac Type Severity Reaction Status Date / Time meperidine Allergy Unknown Other Verified 11/15/19 15:47 Results - Labs CBC & Chem 7: 11/19/19 05:09 11/19/19 05:09 Labs: Short CBC 11/19/19 Range/Units 05:09 WBC 8.6 (4.5-10.0) K/mm3 Hgb 11.1 L (14.0-18.0) g/dL Hct
[2019-11-19 17:33] LABS: Glucose Point of Care 146 (65-105)
[2019-11-19 18:09] LABS: Immature Reticulocyte Fraction 18.4 % (3.0-15.9); Reticulocyte Hemoglobin Conten 28.5 pg (28.2-35.7); Reticulocyte Percent 2.22 % (0.7-4.3); Reticulocytes Absolute 0.09 B/L (32.2-175.7)
[2019-11-19 18:30] LABS: Glucose Point of Care 171 (65-105)
[2019-11-19 19:03] LABS: Iron 20 ug/dL (49-181)
[2019-11-19 19:12] LABS: Percent Iron Saturation 9 % (20-50)
[2019-11-19] MEDS: INSULIN GLARGINE (*BKC) 100 UNITS/ML 60 UNITS SUB-Q (22:37)
[2019-11-20] VITALS (7 sets, daily range): BP systolic 126–150; BP diastolic 55–60; PULSE 74–95; RESP 12–18; TEMP 36.7–37.6; O2SAT 94–99; BMI 10.0
[2019-11-20 00:30] LABS: Glucose Point of Care 113 (65-105)
[2019-11-20 05:41] LABS: Basophils Percent Auto 0.4 % (0.2-1.2); Eosinophils Percent Auto 0.5 % (0-4.4); Hematocrit 31.9 % (42.0-52.0); Hemoglobin 10.8 g/dL (14.0-18.0); Immature Granulocyte Absolute 0.08 K/mm3 (0.00-0.031); Immature Granulocyte Percent A 0.9 % (0-0.5); Lymphocytes Absolute Auto 0.92 K/mm3 (0.9-3.2); Lymphocytes Percent Auto 10.7 % (18.3-44.2); Mean Corpuscular HGB Conc 33.9 g/dl (32-36); Mean Corpuscular Hemoglobin 28.6 pg (26-34); Mean Corpuscular Volume 84.4 fl (80-100); Mean Platelet Volume 9.6 fl (7.4-10.4); Monocytes Absolute Auto 1.4 K/mm3 (0.1-0.6); Monocytes Percent Auto 15.9 % (2.6-8.5); Neutrophils Absolute Auto 6.1 K/mm3 (1.3-6.7); Neutrophils Percent Auto 71.6 % (45.5-73.1); Platelet Count Result 137 k/mm3 (150-375); Red Blood Count 3.78 M/mm3 (4.6-6.20); Red Cell Distribution Width 14.3 % (11.5-14.5); White Blood Count 8.6 K/mm3 (4.5-10.0)
[2019-11-20] MEDS: VANCOMYCIN ORAL 125 MG/2.5 ML SYRUP PO ×4 (05:49→23:32)
[2019-11-20 06:03] LABS: Albumin Level 3.1 g/dL (3.5-5.1); Anion Gap 12.3 mmol/L (7-16); Blood Urea Nitrogen 24 mg/dL (9-20); Calcium 7.8 mg/dL (8.4-10.2); Carbon Dioxide 21 mmol/L (22-30); Chloride 103 mmol/L (98-107); Estimated CRCL calculation 101 ml/min; Estimated Glomerular Filt Rate > 60; Glucose 136 mg/dL (75-110); Phosphorus 2.3 mg/dL (2.5-4.5); Potassium 3.3 mmol/L (3.4-5.0); Sodium 133 mmol/L (137-145)
[2019-11-20] MEDS: LACTATED RINGERS 1,000 ML 100 ML IV CONT ×2 (08:43→18:06)
[2019-11-20] MEDS: APIXABAN 5 MG TABLET PO ×2 (08:45→17:12)
[2019-11-20] MEDS: POTASSIUM CHLORIDE 20 MEQ TABLET.ER PO ×3 (08:45→17:12)
[2019-11-20] MEDS: GABAPENTIN 400 MG CAPSULE 800 MG PO ×3 (08:45→17:12)
[2019-11-20 08:46] LABS: Glucose Point of Care 137 (65-105)
[2019-11-20] MEDS: FIDAXOMICIN 200 MG TABLET PO ×2 (08:46→22:10)
[2019-11-20] MEDS: TOLNAFTATE 1% POWDER 45 GM BTL 1 APPLIC TOPICAL ×2 (08:46→22:13)
[2019-11-20] MEDS: SACCHAROMYCES BOULARDII 250 MG CAPSULE PO ×2 (08:46→17:12)
[2019-11-20] MEDS: INSULIN GLARGINE (*BKC) 100 UNITS/ML 60 UNITS SUB-Q ×2 (08:49→22:10)
[2019-11-20] MEDS: INSULIN ASPART (*BKC) 100 UNITS/ML 20 UNITS SUB-Q ×3 (08:51→17:12)
[2019-11-20 12:43] LABS: Glucose Point of Care 148 (65-105)
--- NOTE | 2019-11-20 13:22 | PM.IMPN ---
Progress Note: A&P Assessment and Plan (1) C. difficile colitis: Code(s): A04.72 - Enterocolitis due to Clostridium difficile, not specified as recurrent Status: Acute Assessment and Plan: Stool cultures came back positive for C diff He had been on Fidaxomicin 200 mg Q12hrs and vancomycin Awaiting improvement on diarrhea being seen by gi (2) Salmonella infection: Code(s): A02.9 - Salmonella infection, unspecified Status: Acute Assessment and Plan: Patient's stool cultures came back positive for salmonella infection to his stools. pt is on iv rocephin for this. (3) Diarrhea: Qualifiers: Diarrhea type: unspecified type Qualified Code(s): R19.7 - Diarrhea, unspecified Code(s): R19.7 - Diarrhea, unspecified Status: Acute Assessment and Plan: The patient has had multiple bouts of C diff in the past. (4) Acute worsening of stage 3 chronic kidney disease: Code(s): N18.3 - Chronic kidney disease, stage 3 (moderate) Status: Resolved Assessment and Plan: creatinine was at baseline which is 1 arf resolved, seen by nephrology (5) Diabetes mellitus with hyperglycemia: Code(s): E11.65 - Type 2 diabetes mellitus with hyperglycemia Status: Acute Assessment and Plan: Continue monitoring glucose levels Accu-Cheks a.c. HS, hypoglycemia protocol. Moderate sliding scale insulin. (6) Fever: Code(s): R50.9 - Fever, unspecified Status: Acute Assessment and Plan: Likely due to the patient's infectious diarrhea. fevereresolved now. (7) Atrial fibrillation: Qualifiers: Atrial fibrillation type: unspecified Qualified Code(s): I48.91 - Unspecified atrial fibrillation Code(s): I48.91 - Unspecified atrial fibrillation Status: Acute Assessment and Plan: Controlled heart rate. continue Eliquis during admission. (8) Diastolic dysfunction: Code(s): I51.89 - Other ill-defined heart diseases Status: Acute Assessment and Plan: He appears to be euvolemic but labs suggest dehdyration. He is receiving some IV fluids due to some dehydration from diarrhea and diuretics. Continue hydration (9) Thrombocytopenia: Code(s): D69.6 - Thrombocytopenia, unspecified Status: Acute Assessment and Plan: Seen by dr mehrdad medina on hold pt is on apixaban Subjective Date/time seen: 11/20/19 13:22 Interval history: Patient admitted for severe diarrhea. Being treated for cdiff and salmonella diarrhea. pt has rectal tube in situ. pt has a medical history of diabetes mellitus, chronic kidney disease, bilateral lower extremity amputations. pt complains of abdominal cramps and ongoing diarhea. arf improving. thrombocytopenia improving. pt seeing gi, nephrology and oncology. pt is also being treated for pneumonia Review of Systems Review of Systems: All systems reviewed & are unremarkable except as noted in HPI and below Exam Narrative: Exam Narrative: chronically ill, bilateral amputee in bed Const: Nutritional Appearance: obese Orientation/consciousness: oriented to person HENMT: Head: normal to inspection Resp: Effort & Inspection: no respiratory distress Auscultation: no rhonchi and no wheezes Cardio: Rate: regular rate Rhythm: regular rhythm GI: Inspection: normal to inspection GI Palp: No abdominal tenderness, No Guarding due to palpation present (GI) and No Hepatomegaly present Auscultation: normal bowel sounds Neuro: General: oriented
--- NOTE | 2019-11-20 14:22 | WPDGICN ---
Assessment and Plan Assessment and plan (1) Diarrhea: Qualifiers: Diarrhea type: unspecified type Qualified Code(s): R19.7 - Diarrhea, unspecified Code(s): R19.7 - Diarrhea, unspecified Status: Acute Assessment and Plan: probably combination of Cdiff and Salmonella, continue with medical treatment (denies sick contacts, only pet is cat) (2) C. difficile colitis: Code(s): A04.72 - Enterocolitis due to Clostridium difficile, not specified as recurrent Status: Acute Assessment and Plan: on difici and vancomycin (3) Salmonella infection: Code(s): A02.9 - Salmonella infection, unspecified Status: Acute Assessment and Plan: on iv rocephin (4) Morbid obesity: Code(s): E66.01 - Morbid (severe) obesity due to excess calories Status: Acute (5) Acute renal failure superimposed on stage 3 chronic kidney disease: Qualifiers: Acute renal failure type: unspecified Qualified Code(s): N17.9 - Acute kidney failure, unspecified; N18.3 - Chronic kidney disease, stage 3 (moderate) Code(s): N17.9 - Acute kidney failure, unspecified; N18.3 - Chronic kidney disease, stage 3 (moderate) Status: Acute Assessment and Plan: renal function improved (6) Leukocytosis: Qualifiers: Leukocytosis type: other Qualified Code(s): D72.828 - Other elevated white blood cell count Code(s): D72.829 - Elevated white blood cell count, unspecified Status: Acute Assessment and Plan: resolved (7) Diabetes mellitus with hyperglycemia: Code(s): E11.65 - Type 2 diabetes mellitus with hyperglycemia Status: Acute GI Consult Note Consult date/time: 11/20/19 14:22 Reason for consult: diarrhea HPI: Lester Nguyễn is a 59 year old male with multiple medical problems including diabetes mellitus, chronic kidney disease, bilateral lower extremity amputations, and C diff colitis with most recent hospitalization July, finished a 14 day course of Dificid with his last dose in early August. He came to the ER via EMS due to 2 weeks of diarrhea but worse last few days with incontinence. He was having several BM's a day, watery and light brown in color. Also had some periumbilical abdominal pain. Had chils and low grade fever. Stool showed C diff and also salmonella. Now he is being treated with dificid, oral vancomycin and IV rocephin. WBC 16k on admission, now normal. Liver enzymes and lipase normal. Hematology also evaluated patient because thrombocytopenia. Had acute renal failure but now resolved. CT scan a/p showed no acute cardiopulmonary abnormality, cholelithiasis without evidence of cholecystitis, unchanged splenomegaly, likely related to body habitus, resolved left lower lobe pneumonia and left pleural effusion. He is feeling better, he has a rectal tube. Last colonoscopy about 5 years ago. Review of Systems Constitutional: Constitutional: Reports anorexia and Reports chills Eyes: Eyes: Denies blurry vision ENT: Reports Normal hearing present, Denies headache(s) and Denies neck pain Cardiovascular: Cardiovascular: Denies chest pain and Denies dyspnea Respiratory: Respiratory: Denies dyspnea Gastrointestinal: Gastrointestinal: Reports abdominal pain and Reports diarrhea Genitourinary: Genitourinary: Denies dysuria Musculoskeletal: Comments: bilateral leg amputation Integumentary/Breasts: Skin/Breast: Denies pruritus Neurologic: Reports Normal hearing present, Denies headache(s) and Denies weakness Psychiatric: Psychiatric: Denies anxiety Endocrine: Endocrine: Denies change in body appearance Hematologic/Lymphatic: Hematologic/Lymphatic: Denies easy bleeding Allergic/Immunologic: Allergic/Immunologic: Denies urticaria PMFSH Past Medical History Medical History Atrial fibrillation On chronic anticoagulation with Eliquis Chronic kidney disease, stage
--- NOTE | 2019-11-20 16:52 | PM.PNNEP ---
Progress Note: A&P Assessment and Plan (1) Chronic kidney disease, stage 3: Code(s): N18.3 - Chronic kidney disease, stage 3 (moderate) Status: Acute Assessment and Plan: the patient has chronic kidney disease. His creatinine is normal but he does have some protein in the urine. due to diabetes, hypertension, vascular disease. (2) Acute renal failure superimposed on stage 3 chronic kidney disease: Qualifiers: Acute renal failure type: unspecified Qualified Code(s): N17.9 - Acute kidney failure, unspecified; N18.3 - Chronic kidney disease, stage 3 (moderate) Code(s): N17.9 - Acute kidney failure, unspecified; N18.3 - Chronic kidney disease, stage 3 (moderate) Status: Acute Assessment and Plan: The patient has acute kidney injury. CT abdomen showed no obstruction. Urine electrolytes are pre renal. his creatinine has returned to normal. I will follow from a distance (3) Diarrhea: Qualifiers: Diarrhea type: unspecified type Qualified Code(s): R19.7 - Diarrhea, unspecified Code(s): R19.7 - Diarrhea, unspecified Status: Acute Assessment and Plan: The patient has persistent diarrhea. He does not look toxic. he is on a fecal management system (4) Diabetes mellitus with hyperglycemia: Code(s): E11.65 - Type 2 diabetes mellitus with hyperglycemia Status: Acute Assessment and Plan: On Accu-Cheks and sliding-scale insulin (5) Atrial fibrillation: Qualifiers: Atrial fibrillation type: unspecified Qualified Code(s): I48.91 - Unspecified atrial fibrillation Code(s): I48.91 - Unspecified atrial fibrillation Status: Acute Assessment and Plan: heart rate is well controlled. Dig level Low. (6) DARIN (obstructive sleep apnea): Code(s): G47.33 - Obstructive sleep apnea (adult) (pediatric) Status: Acute Subjective Date/time seen: 11/20/19 16:52 Interval history: Lester is feeling about the same today. Appetite is poor. Review of Systems Cardiovascular: Cardiovascular: Reports no additional cardiovascular complaints Respiratory: Respiratory: Reports no additional respiratory complaints Gastrointestinal: Gastrointestinal: Reports no additional gastrointestinal complaints Genitourinary: Genitourinary: Reports no additional male genitourinary complaints Exam Narrative: Exam Narrative: WDWN in NAD skin no rash head ncat lungs clear to auscultation cor reg no rub or gallop abd BS+ nontender and soft ext Trace presacral edema. Bilateral Lower extremity amputations. Objective Data Vital Signs Vital Signs: Vital Signs - 24 hr 11/19/19 18:00 11/19/19 20:21 11/20/19 00:00 Temperature 36.8 C 36.8 C 36.7 C Pulse Rate 87 89 87 Respiratory Rate 17 16 16 Blood Pressure 133/54 L 107/42 L 132/55 L Pulse Oximetry 97 96 95 11/20/19 06:00 11/20/19 08:46 11/20/19 10:00 Temperature 36.9 C 36.9 C Pulse Rate 95 91 83 Respiratory Rate 16 18 Blood Pressure 126/56 L 138/56 L Pulse Oximetry 96 99 11/20/19 14:00 Temperature 37.2 C Pulse Rate 77 Respiratory Rate 17 Blood Pressure 134/59 L Pulse Oximetry 99 Intake/Output Intake/Output: Intake & Output 11/17/19 11/18/19 11/19/19 11/20/19 23:59 23:59 23:59 23:59 Intake Total 3500 4510 5972 2207 Output Total 450 1250 2575 1400 Balance 3050 3260 3397 807 Meds/Results Medications: Active Medications Generic Name Dose Route Start Last Admin Trade Name Freq PRN Reason Stop Dose Admin Acetaminophen 650 mg 11/15/19 18:02 Tylenol Tablet PO Q4H PRN Mild Pain (1-3) or Fever Albuterol 2 puff 11/15/19 21:53 Proventil Hfa INHALATION QIDRT PRN shortness of breath or wheezing Apixaban 5 mg 11/16/19 09:00 11/20/19 08:45 Eliquis PO 5 mg BID FAROOQ Administration Carvedilol 40 mg 11/16/19 09:00 11/20/19 08:46 Coreg Cr PO 12/16/19
--- NOTE | 2019-11-20 17:37 | WPDONCPN ---
Progress Note: A/P - Additional Plan Normocytic anemia and thrombocytopenia. Platelet antibodies are pending. This is likely secondary to infection and drug-induced thrombocytopenia. B12 level came back normal. Iron level is on the low side. I will start on oral iron replacement. No need for blood transfusion. C diff colitis. Patient is on oral vancomycin. Chronic kidney stage 3 disease. Nephrology service is following the patient. No evidence of hemolytic uremic syndrome - Time Spent With Patient Total time spent is greater than 50% in coordination of care (as documented) at patient's floor/unit and/or counseling patient: 15 - 25 minutes Subjective Interval history: Anemia and thrombocytopenia Chronic kidney stage 3 disease Type 2 diabetes Infectious diarrhea with positive C diff and salmonella infection Review of Systems - Review of Systems Patient looks comfortable. He denies any chest pain and shortness of breath. Continues to have liquidy stool in the rectal tube. Denies any fevers and chills. No bleeding. Patient has poor appetite with taste changes. No other new complaints. - Neurologic Reports system reviewed and no additional complaints, except as documented, Reports hearing normal, Denies headache(s), Denies weakness Exam Vital signs: Temp Pulse Resp BP Pulse Ox 37.2 C 77 17 134/59 L 99 11/20/19 14:00 11/20/19 14:00 11/20/19 14:00 11/20/19 14:00 11/20/19 14:00 Narrative: Lungs are clear to auscultation bilaterally Cardiovascular regular rate rhythm no murmurs Abdomen soft nontender nondistended bowel sounds are positive Extremities no edema PN: Objective Data - Labs CBC & Chem 7: 11/20/19 05:14 11/20/19 05:14 Labs: Laboratory Results - last 24 hr 11/19/19 11/19/19 11/19/19 17:51 17:51 17:51 WBC RBC Hgb Hct MCV MCH MCHC RDW Plt Count MPV Immature Gran % (Auto) Neut % (Auto) Lymph % (Auto) Robertson % (Auto) Eos % (Auto) Baso % (Auto) Lymph # (Auto) Robertson # (Auto) Eos # (Auto) Baso # (Auto) Abs Immat Gran (auto) Absolute Neuts (auto) Absolute Nucleated RBC Nucleated RBC % Absolute Retic 0.09 L Percent Retic 2.22 Immature Retic Fraction 18.4 H Retic Hgb Content 28.5 Sodium Potassium Chloride Carbon Dioxide Anion Gap BUN Creatinine Estim Creat Clear Calc Estimated GFR Glucose POC Capillary Glucose Calcium Phosphorus Magnesium Iron 20 L TIBC 222 L % Saturation 9 L Ferritin 228.00 Albumin Vitamin B12 852.0 11/19/19 11/19/19 11/20/19 18:12 22:09 05:14 WBC 8.6 RBC 3.78 L Hgb 10.8 L Hct 31.9 L MCV 84.4 MCH 28.6 MCHC 33.9 RDW 14.3 Plt Count 137 L MPV 9.6 Immature Gran % (Auto) 0.9 H Neut % (Auto) 71.6 Lymph % (Auto) 10.7 L Robertson % (Auto) 15.9 H Eos % (Auto) 0.5 Baso % (Auto) 0.4 Lymph # (Auto) 0.92 Robertson # (Auto) 1.4 H Eos # (Auto) 0.0 Baso # (Auto) 0.0 Abs Immat Gran (auto) 0.08 H Absolute Neuts (auto) 6.1 Absolute Nucleated RBC 0.0 Nucleated RBC % 0.0 Absolute Retic Percent Retic Immature Retic Fraction Retic Hgb Content Sodium Potassium Chloride Carbon Dioxide Anion Gap BUN Creatinine Estim Creat Clear Calc Estimated GFR Glucose POC Capillary Glucose 171 H 113 H Calcium Phosphorus Magnesium Iron TIBC % Saturation Ferritin Albumin Vitamin B12 11/20/19 11/20/19 11/20/19 05:14 08:42 12:36 WBC RBC Hgb Hct MCV MCH MCHC RDW Plt Count MPV Immature Gran % (Auto) Neut % (Auto) Lymph % (Auto) Robertson % (Auto) Eos % (Auto) Baso % (Auto) Lymph # (Auto) Robertson # (Auto) Eos # (Auto) Baso # (Auto) Abs Immat Gran (auto) Absolute Neuts (auto) Absol
[2019-11-20 18:10] LABS: Glucose Point of Care 144 (65-105)
[2019-11-20] MEDS: FERROUS SULFATE 324 MG TABLET PO (19:08)
[2019-11-20 22:45] LABS: Glucose Point of Care 117 (65-105)
[2019-11-21] VITALS: BP 137/57; PULSE 86; RESP 12; TEMP 37.6; O2SAT 95
[2019-11-21 04:00] VITALS: BP 126/53; PULSE 86; RESP 16; TEMP 37.3; O2SAT 96
[2019-11-21 05:24] LABS: Hematocrit 32.1 % (42.0-52.0); Hemoglobin 10.8 g/dL (14.0-18.0); Mean Corpuscular HGB Conc 33.6 g/dl (32-36); Mean Corpuscular Hemoglobin 28.9 pg (26-34); Mean Corpuscular Volume 85.8 fl (80-100); Mean Platelet Volume 9.4 fl (7.4-10.4); Platelet Count Result 144 k/mm3 (150-375); Red Blood Count 3.74 M/mm3 (4.6-6.20); Red Cell Distribution Width 14.6 % (11.5-14.5); White Blood Count 7.6 K/mm3 (4.5-10.0)
[2019-11-21 05:39] LABS: Anion Gap 10.5 mmol/L (7-16); Blood Urea Nitrogen 16 mg/dL (9-20); Calcium 7.8 mg/dL (8.4-10.2); Carbon Dioxide 23 mmol/L (22-30); Chloride 105 mmol/L (98-107); Estimated CRCL calculation 111 ml/min; Estimated Glomerular Filt Rate > 60; Glucose 121 mg/dL (75-110); Potassium 3.5 mmol/L (3.4-5.0); Sodium 135 mmol/L (137-145)
[2019-11-21] MEDS: VANCOMYCIN ORAL 125 MG/2.5 ML SYRUP PO ×3 (05:39→17:56)
[2019-11-21] MEDS: LACTATED RINGERS 1,000 ML 100 ML IV CONT ×2 (05:39→18:03)
[2019-11-21 08:06] LABS: Glucose Point of Care 115 (65-105)
[2019-11-21] MEDS: INSULIN GLARGINE (*BKC) 100 UNITS/ML 60 UNITS SUB-Q ×2 (08:41→22:12)
[2019-11-21] MEDS: INSULIN ASPART (*BKC) 100 UNITS/ML 20 UNITS SUB-Q ×2 (08:42→17:57)
[2019-11-21] MEDS: APIXABAN 5 MG TABLET PO ×2 (09:03→17:57)
[2019-11-21] MEDS: FIDAXOMICIN 200 MG TABLET PO ×2 (09:03→22:12)
[2019-11-21] MEDS: FERROUS SULFATE 324 MG TABLET PO ×2 (09:03→17:57)
[2019-11-21] MEDS: SACCHAROMYCES BOULARDII 250 MG CAPSULE PO ×2 (09:03→17:56)
[2019-11-21] MEDS: POTASSIUM CHLORIDE 20 MEQ TABLET.ER 40 MEQ PO ×3 (09:03→17:56)
[2019-11-21] MEDS: TOLNAFTATE 1% POWDER 45 GM BTL 1 APPLIC TOPICAL ×2 (09:04→22:14)
[2019-11-21] MEDS: GABAPENTIN 400 MG CAPSULE 800 MG PO ×3 (09:04→17:57)
[2019-11-21 10:00] VITALS: BP 141/64; PULSE 81; RESP 36; TEMP 36.4; O2SAT 96
[2019-11-21 11:46] LABS: Glucose Point of Care 159 (65-105)
[2019-11-21] MEDS: SALINE LOCK FLUSH 10 ML IV PUSH (12:28)
--- NOTE | 2019-11-21 14:06 | WPDGIPROGNO ---
Progress Note: A&P Assessment and Plan (1) C. difficile colitis: Code(s): A04.72 - Enterocolitis due to Clostridium difficile, not specified as recurrent Status: Acute Assessment and Plan: diarrhea with both C diff and salmonella, on treatment. He is also on probiotics he has a fecal container with liquid stool, probably will take some time to fully recover abdominal exam is benign, no leukocytosis, he is trying to eat more (2) Salmonella infection: Code(s): A02.9 - Salmonella infection, unspecified Status: Acute Assessment and Plan: on iv rocephin (3) Chronic kidney disease, stage 3: Code(s): N18.3 - Chronic kidney disease, stage 3 (moderate) Status: Acute Assessment and Plan: stable creatinine, nephrology on board (4) Diabetes mellitus with hyperglycemia: Code(s): E11.65 - Type 2 diabetes mellitus with hyperglycemia Status: Acute (5) Morbid obesity: Code(s): E66.01 - Morbid (severe) obesity due to excess calories Status: Acute (6) DARIN (obstructive sleep apnea): Code(s): G47.33 - Obstructive sleep apnea (adult) (pediatric) Status: Acute Subjective Date/time seen: 11/21/19 14:06 Interval history: no major changes, had breakfast but still with poor appetite. Review of Systems Review of Systems: All systems reviewed & are unremarkable except as noted in HPI and below Exam Const: General: comfortable and no acute distress Other: obese, comfortable lying in bed HENMT: General nose exam: Normal nares present Eyes: General: appearance normal, both eyes and all related structures Neck: Neck: no JVD Resp: Auscultation: clear to auscultation bilaterally Cardio: Rate: regular rate Rhythm: regular rhythm GI: Inspection: non-distended GI Palp: Yes Soft to palpation Auscultation: normal bowel sounds Other: fecal container with liquid brown stool Skin: General skin exam: normal color Neuro: Speech: normal speech Extrem: Other: Patient has a left above the knee amputation and right [id number] amputation Psych: Mental Status: mental status grossly normal Objective Data Vital Signs Vital Signs: Vital Signs - 24 hr 11/20/19 18:00 11/20/19 20:12 11/21/19 00:00 Temperature 98.9 F 99.6 F 99.6 F Pulse Rate 74 88 86 Respiratory Rate 18 12 12 Blood Pressure 140/55 L 150/60 H 137/57 L Pulse Oximetry 95 94 95 11/21/19 04:00 11/21/19 10:00 Temperature 99.2 F 97.5 F L Pulse Rate 86 81 Respiratory Rate 16 36 H Blood Pressure 126/53 L 141/64 H Pulse Oximetry 96 96 Intake/Output Intake/Output: Intake & Output 11/18/19 11/19/19 11/20/19 11/21/19 23:59 23:59 23:59 23:59 Intake Total 4510 5972 3447 1430 Output Total 1250 2575 2125 975 Balance 3260 8442 132 455 Meds/Results Medications: Active Medications Generic Name Dose Route Start Last Admin Trade Name Freq PRN Reason Stop Dose Admin Acetaminophen 650 mg 11/15/19 18:02 Tylenol Tablet PO Q4H PRN Mild Pain (1-3) or Fever Albuterol 2 puff 11/15/19 21:53 Proventil Hfa INHALATION QIDRT PRN shortness of breath or wheezing Apixaban 5 mg 11/16/19 09:00 11/21/19 09:03 Eliquis PO 5 mg BID FAROOQ Administration Carvedilol 40 mg 11/16/19 09:00 11/21/19 09:04 Coreg Cr PO 12/16/19 09:01 40 mg DAILY FAROOQ Administration Dextrose 12.5 gm 11/18/19 18:40 Dextrose 50% Syringe IV PUSH PRN PRN Hypoglycemia Protocol Digoxin 125 mcg 11/16/19 09:00 11/16/19 09:53 Lanoxin Tab PO 125 mcg DAILY FAROOQ Administration Ferrous Sulfate 324 mg 11/20/19 17:55 11/21/19 09:03 Ferrous Sulfate PO 324 mg BIDWM FAROOQ Administration Fidaxomicin 200 mg 11/15/19 21:15 11/21/19 09:03 Dificid PO 11/25/19 09:01 200 mg Q12HR FAROOQ Administration Gabapentin 800 mg 11/16/19 09:00 11/21/19 12:27 Neurontin PO 800 mg TID FAROOQ Administration Glucagon 1 mg 11/18/19 18:
--- NOTE | 2019-11-21 15:05 | PM.IMPN ---
Progress Note: A&P Assessment and Plan (1) C. difficile colitis: Code(s): A04.72 - Enterocolitis due to Clostridium difficile, not specified as recurrent Status: Acute Assessment and Plan: Stool cultures came back positive for C diff He had been on Fidaxomicin 200 mg Q12hrs and vancomycin Awaiting improvement on diarrhea being seen by gi rectal tube in tube potassium better, encouraged to eat more (2) Salmonella infection: Code(s): A02.9 - Salmonella infection, unspecified Status: Acute Assessment and Plan: Patient's stool cultures came back positive for salmonella infection to his stools. pt is on iv rocephin for this. (3) Diarrhea: Qualifiers: Diarrhea type: unspecified type Qualified Code(s): R19.7 - Diarrhea, unspecified Code(s): R19.7 - Diarrhea, unspecified Status: Acute Assessment and Plan: The patient has had multiple bouts of C diff in the past. (4) Acute worsening of stage 3 chronic kidney disease: Code(s): N18.3 - Chronic kidney disease, stage 3 (moderate) Status: Resolved Assessment and Plan: creatinine was at baseline which is 1 arf resolved, seen by nephrology (5) Diabetes mellitus with hyperglycemia: Code(s): E11.65 - Type 2 diabetes mellitus with hyperglycemia Status: Acute Assessment and Plan: Continue monitoring glucose levels Accu-Cheks a.c. HS, hypoglycemia protocol. Moderate sliding scale insulin. (6) Fever: Code(s): R50.9 - Fever, unspecified Status: Acute Assessment and Plan: Likely due to the patient's infectious diarrhea. fevereresolved now. (7) Atrial fibrillation: Qualifiers: Atrial fibrillation type: unspecified Qualified Code(s): I48.91 - Unspecified atrial fibrillation Code(s): I48.91 - Unspecified atrial fibrillation Status: Acute Assessment and Plan: Controlled heart rate. continue Eliquis during admission. (8) Diastolic dysfunction: Code(s): I51.89 - Other ill-defined heart diseases Status: Acute Assessment and Plan: He appears to be euvolemic but labs suggest dehdyration. He is receiving some IV fluids due to some dehydration from diarrhea and diuretics. Continue hydration (9) Thrombocytopenia: Code(s): D69.6 - Thrombocytopenia, unspecified Status: Acute Assessment and Plan: Seen by dr mehrdad medina on hold pt is on apixaban Subjective Date/time seen: 11/21/19 15:05 Interval history: Patient admitted for severe diarrhea. Being treated for cdiff and salmonella diarrhea. pt has rectal tube in situ. pt has a medical history of diabetes mellitus, chronic kidney disease, bilateral lower extremity amputations. pt complains of abdominal cramps and ongoing diarhea. arf improved. thrombocytopenia improving. pt seeing gi, nephrology and oncology. pt is also being treated for pneumonia Review of Systems Review of Systems: All systems reviewed & are unremarkable except as noted in HPI and below Exam Narrative: Exam Narrative: chronically ill, bilateral amputee in bed Const: General: cooperative and healthy appearing; No in distress Nutritional Appearance: obese Orientation/consciousness: oriented to person Resp: Effort & Inspection: no respiratory distress Auscultation: no rhonchi and no wheezes Cardio: Rate: regular rate Rhythm: regular rhythm GI: Inspection: normal to inspection and other (rectal tube in situ ) Auscultation: normal bowel sounds Objective
[2019-11-21 17:07] LABS: Glucose Point of Care 327 (65-105)
[2019-11-21 17:49] LABS: Glucose Point of Care 99 (65-105)
[2019-11-21 18:00] VITALS: BP 117/69; PULSE 79; RESP 28; TEMP 37.1; O2SAT 97
[2019-11-21 18:15] LABS: Glucose Point of Care 115 (65-105)
--- NOTE | 2019-11-21 18:21 | PC.NURSE ---
Blood glucose was measured and it was found to be elevated it was then rechecked due to the major difference in his normal labs, and it was found to be lower, meter was then QC checked and his blood glucose was checked for a third time. Patient resting comfortably eating his dinner. Will continue to monitor.
[2019-11-21 20:00] VITALS: BP 134/62; PULSE 78; RESP 18; TEMP 37; O2SAT 97
[2019-11-21 23:08] LABS: Glucose Point of Care 122 (65-105)
[2019-11-22] VITALS: BP 112/72; PULSE 104; RESP 12; TEMP 36.4; O2SAT 100
[2019-11-22] MEDS: SALINE LOCK FLUSH 10 ML IV PUSH ×4 (00:57→23:31)
[2019-11-22] MEDS: VANCOMYCIN ORAL 125 MG/2.5 ML SYRUP PO ×5 (00:57→23:32)
[2019-11-22 04:00] VITALS: BP 146/68; PULSE 72; RESP 12; TEMP 36.6; O2SAT 98
[2019-11-22] MEDS: LACTATED RINGERS 1,000 ML 100 ML IV CONT ×2 (05:30→17:39)
[2019-11-22 06:08] LABS: Anion Gap 10.9 mmol/L (7-16); Blood Urea Nitrogen 12 mg/dL (9-20); Calcium 7.8 mg/dL (8.4-10.2); Carbon Dioxide 23 mmol/L (22-30); Chloride 107 mmol/L (98-107); Estimated CRCL calculation 124 ml/min; Estimated Glomerular Filt Rate > 60; Glucose 106 mg/dL (75-110); Potassium 3.9 mmol/L (3.4-5.0); Sodium 137 mmol/L (137-145)
[2019-11-22] MEDS: GABAPENTIN 400 MG CAPSULE 800 MG PO ×3 (08:54→17:24)
[2019-11-22] MEDS: APIXABAN 5 MG TABLET PO ×2 (08:55→17:25)
[2019-11-22] MEDS: FERROUS SULFATE 324 MG TABLET PO ×2 (08:55→17:24)
[2019-11-22] MEDS: FIDAXOMICIN 200 MG TABLET PO ×2 (08:55→23:29)
[2019-11-22] MEDS: POTASSIUM CHLORIDE 20 MEQ TABLET.ER 40 MEQ PO ×3 (08:55→17:24)
[2019-11-22] MEDS: SACCHAROMYCES BOULARDII 250 MG CAPSULE PO ×2 (08:56→17:24)
[2019-11-22] MEDS: TOLNAFTATE 1% POWDER 45 GM BTL 1 APPLIC TOPICAL ×2 (08:56→23:30)
[2019-11-22] MEDS: INSULIN ASPART (*BKC) 100 UNITS/ML 20 UNITS SUB-Q (09:22)
[2019-11-22] MEDS: INSULIN GLARGINE (*BKC) 100 UNITS/ML 60 UNITS SUB-Q ×2 (09:22→23:47)
[2019-11-22 09:29] LABS: Glucose Point of Care 104 (65-105)
[2019-11-22 10:00] VITALS: BP 129/61; PULSE 70; RESP 15; TEMP 36.6; O2SAT 96
[2019-11-22 13:04] LABS: Glucose Point of Care 154 (65-105)
[2019-11-22 14:00] VITALS: BP 137/71; PULSE 64; RESP 18; TEMP 36.3; O2SAT 97
--- NOTE | 2019-11-22 14:28 | WPDGIPROGNO ---
Progress Note: A&P Assessment and Plan (1) C. difficile colitis: Code(s): A04.72 - Enterocolitis due to Clostridium difficile, not specified as recurrent Status: Acute Assessment and Plan: diarrhea with both C diff and salmonella, on treatment. He is also on probiotics he has a fecal container with liquid stool, probably will take some time to fully recover. He is feeling better, consider to remove container soon but also in place to prevent soiling since he does not move much and spends most of his time in bed (obese and bilateral leg amputee) (2) Salmonella infection: Code(s): A02.9 - Salmonella infection, unspecified Status: Acute Assessment and Plan: on iv rocephin (3) Chronic kidney disease, stage 3: Code(s): N18.3 - Chronic kidney disease, stage 3 (moderate) Status: Acute Assessment and Plan: stable creatinine, nephrology on board (4) Diabetes mellitus with hyperglycemia: Code(s): E11.65 - Type 2 diabetes mellitus with hyperglycemia Status: Acute (5) Morbid obesity: Code(s): E66.01 - Morbid (severe) obesity due to excess calories Status: Acute (6) DARIN (obstructive sleep apnea): Code(s): G47.33 - Obstructive sleep apnea (adult) (pediatric) Status: Acute Subjective Date/time seen: 11/22/19 14:28 Interval history: he is slowly feeling better and eating more. Still with rectal container in place Review of Systems Review of Systems: All systems reviewed & are unremarkable except as noted in HPI and below Exam Const: General: comfortable and no acute distress Other: obese, comfortable lying in bed, b/l leg amputee in special mattress HENMT: General nose exam: Normal nares present Eyes: General: appearance normal, both eyes and all related structures Neck: Neck: no JVD Resp: Auscultation: clear to auscultation bilaterally Cardio: Rate: regular rate Rhythm: regular rhythm GI: Inspection: non-distended GI Palp: Yes Soft to palpation Auscultation: normal bowel sounds Other: fecal container with liquid brown stool Skin: General skin exam: normal color Neuro: Speech: normal speech Extrem: Other: Patient has a left above the knee amputation and right [id number] amputation Psych: Mental Status: mental status grossly normal Objective Data Vital Signs Vital Signs: Vital Signs - 24 hr 07/29/20 18:00 11/21/19 20:00 11/22/19 00:00 Temperature 98.7 F 98.6 F 97.6 F Pulse Rate 79 78 104 H Respiratory Rate 28 H 18 12 Blood Pressure 117/69 134/62 112/72 Pulse Oximetry 97 97 100 11/22/19 04:00 11/22/19 10:00 Temperature 97.8 F 97.8 F Pulse Rate 72 70 Respiratory Rate 12 15 Blood Pressure 146/68 H 129/61 Pulse Oximetry 98 96 Intake/Output Intake/Output: Intake & Output 11/19/19 11/20/19 11/21/19 11/22/19 23:59 23:59 23:59 23:59 Intake Total 5915 3447 3080 1525 Output Total 9980 7039 1775 650 Balance 3397 1322 1305 875 Meds/Results Medications: Active Medications Generic Name Dose Route Start Last Admin Trade Name Freq PRN Reason Stop Dose Admin Acetaminophen 650 mg 11/15/19 18:02 Tylenol Tablet PO Q4H PRN Mild Pain (1-3) or Fever Albuterol 2 puff 11/15/19 21:53 Proventil Hfa INHALATION QIDRT PRN shortness of breath or wheezing Apixaban 5 mg 11/16/19 09:00 11/22/19 08:55 Eliquis PO 5 mg BID FAROOQ Administration Carvedilol 40 mg 11/16/19 09:00 11/22/19 08:55 Coreg Cr PO 12/16/19 09:01 40 mg DAILY FAROOQ Administration Dextrose 12.5 gm 11/18/19 18:40 Dextrose 50% Syringe IV PUSH PRN PRN Hypoglycemia Protocol Digoxin 125 mcg 11/16/19 09:00 11/16/19 09:53 Lanoxin Tab PO 125 mcg DAILY FAROOQ Administration Ferrous Sulfate 324 mg 11/20/19 17:55 11/22/19 08:55 Ferrous Sulfate PO 324 mg BIDWM FAROOQ Administration Fidaxomicin 200 mg 11/15/19 21:15 11/22/19 08:55 Dificid PO 11/25/19 09:0
--- NOTE | 2019-11-22 16:39 | PM.IMPN ---
Progress Note: A&P Assessment and Plan (1) C. difficile colitis: Code(s): A04.72 - Enterocolitis due to Clostridium difficile, not specified as recurrent Status: Acute Assessment and Plan: Stool cultures came back positive for C diff He had been on Fidaxomicin 200 mg Q12hrs and vancomycin Awaiting improvement on diarrhea Rectal tube insitu, urinary catheter in situ can remove tomorrow Potassium better, encouraged to eat more (2) Salmonella infection: Code(s): A02.9 - Salmonella infection, unspecified Status: Acute Assessment and Plan: Patient's stool cultures came back positive for salmonella infection to his stools. pt is on iv rocephin for this. discuseed social situation pt lives with his brother in [facility] (3) Diarrhea: Qualifiers: Diarrhea type: unspecified type Qualified Code(s): R19.7 - Diarrhea, unspecified Code(s): R19.7 - Diarrhea, unspecified Status: Acute Assessment and Plan: The patient has had multiple bouts of C diff in the past. (4) Acute worsening of stage 3 chronic kidney disease: Code(s): N18.3 - Chronic kidney disease, stage 3 (moderate) Status: Resolved Assessment and Plan: creatinine was at baseline which is 1 arf resolved, seen by nephrology (5) Diabetes mellitus with hyperglycemia: Code(s): E11.65 - Type 2 diabetes mellitus with hyperglycemia Status: Acute Assessment and Plan: Continue monitoring glucose levels Accu-Cheks a.c. HS, hypoglycemia protocol. Moderate sliding scale insulin. (6) Fever: Code(s): R50.9 - Fever, unspecified Status: Acute Assessment and Plan: Likely due to the patient's infectious diarrhea. fevereresolved now. (7) Atrial fibrillation: Qualifiers: Atrial fibrillation type: unspecified Qualified Code(s): I48.91 - Unspecified atrial fibrillation Code(s): I48.91 - Unspecified atrial fibrillation Status: Acute Assessment and Plan: Controlled heart rate. continue Eliquis during admission. (8) Diastolic dysfunction: Code(s): I51.89 - Other ill-defined heart diseases Status: Acute Assessment and Plan: He appears to be euvolemic but labs suggest dehdyration. He is receiving some IV fluids due to some dehydration from diarrhea and diuretics. Continue hydration (9) Thrombocytopenia: Code(s): D69.6 - Thrombocytopenia, unspecified Status: Acute Assessment and Plan: Seen by dr mehrdad medina on hold pt is on apixaban Subjective Date/time seen: 11/22/19 16:39 Interval history: Patient admitted for severe diarrhea. Being treated for cdiff and salmonella diarrhea. pt has rectal tube in situ. pt has a medical history of diabetes mellitus, chronic kidney disease, bilateral lower extremity amputations. Abdominal cramps and diarrhea have improved. thrombocytopenia improving. pt seeing gi, nephrology and oncology. pt is also being treated for pneumonia Review of Systems Review of Systems: All systems reviewed & are unremarkable except as noted in HPI and below Gastrointestinal: Gastrointestinal: Reports diarrhea and Reports loose stools Exam Narrative: Exam Narrative: chronically ill, bilateral amputee in bed Const: General: cooperative and healthy appearing; No in distress Nutritional Appearance: obese Orientation/consciousness: oriented to person Resp: Effort & Inspection: no respiratory distress Auscultation: no rhonchi and no wheezes Cardio: Rate:
[2019-11-22 18:00] VITALS: BP 141/57; PULSE 69; RESP 16; TEMP 35.9; O2SAT 97
[2019-11-22 18:48] LABS: Glucose Point of Care 78 (65-105)
[2019-11-22 21:46] VITALS: BP 138/74; PULSE 72; RESP 18; TEMP 36.1; O2SAT 98
[2019-11-23 00:11] LABS: Glucose Point of Care 120 (65-105)
[2019-11-23 02:50] VITALS: BP 146/77; PULSE 88; RESP 20; TEMP 36.2; O2SAT 97
[2019-11-23] MEDS: LACTATED RINGERS 1,000 ML 100 ML IV CONT ×2 (03:00→14:03)
[2019-11-23 05:00] VITALS: BP 141/72; PULSE 75; RESP 16; TEMP 36.2; O2SAT 97
[2019-11-23] MEDS: SALINE LOCK FLUSH 10 ML IV PUSH ×3 (05:03→21:57)
[2019-11-23] MEDS: VANCOMYCIN ORAL 125 MG/2.5 ML SYRUP PO ×4 (05:04→23:39)
[2019-11-23 05:23] LABS: Potassium 4.3 mmol/L (3.4-5.0)
[2019-11-23] MEDS: INSULIN ASPART (*BKC) 100 UNITS/ML 20 UNITS SUB-Q ×3 (08:49→18:16)
[2019-11-23] MEDS: INSULIN GLARGINE (*BKC) 100 UNITS/ML 60 UNITS SUB-Q ×2 (08:50→20:25)
[2019-11-23] MEDS: SACCHAROMYCES BOULARDII 250 MG CAPSULE PO ×2 (08:56→18:17)
[2019-11-23] MEDS: GABAPENTIN 400 MG CAPSULE 800 MG PO ×3 (08:57→18:17)
[2019-11-23] MEDS: FERROUS SULFATE 324 MG TABLET PO ×2 (08:57→18:17)
[2019-11-23] MEDS: FIDAXOMICIN 200 MG TABLET PO ×2 (08:57→20:25)
[2019-11-23] MEDS: APIXABAN 5 MG TABLET PO ×2 (08:57→18:17)
[2019-11-23] MEDS: POTASSIUM CHLORIDE 20 MEQ TABLET.ER 40 MEQ PO ×3 (08:58→18:17)
[2019-11-23] MEDS: TOLNAFTATE 1% POWDER 45 GM BTL 1 APPLIC TOPICAL ×2 (08:58→20:28)
[2019-11-23 09:10] LABS: Glucose Point of Care 167 (65-105)
[2019-11-23 09:10] LABS: Glucose Point of Care 149 (65-105)
[2019-11-23 10:00] VITALS: BP 134/66; PULSE 56; RESP 16; TEMP 36.3; O2SAT 100
[2019-11-23 11:46] LABS: Glucose Point of Care 146 (65-105)
--- NOTE | 2019-11-23 12:48 | WPDGIPROGNO ---
Progress Note: A&P Assessment and Plan (1) C. difficile colitis: Code(s): A04.72 - Enterocolitis due to Clostridium difficile, not specified as recurrent Status: Acute Assessment and Plan: diarrhea with both C diff and salmonella, on treatment. He is also on probiotics fecal container was removed tolerating diet and slowly feeling better (2) Salmonella infection: Code(s): A02.9 - Salmonella infection, unspecified Status: Acute Assessment and Plan: on iv rocephin (3) Chronic kidney disease, stage 3: Code(s): N18.3 - Chronic kidney disease, stage 3 (moderate) Status: Acute Assessment and Plan: normal creatinine now, nephrology on board (4) Diabetes mellitus with hyperglycemia: Code(s): E11.65 - Type 2 diabetes mellitus with hyperglycemia Status: Acute (5) Morbid obesity: Code(s): E66.01 - Morbid (severe) obesity due to excess calories Status: Acute (6) DARIN (obstructive sleep apnea): Code(s): G47.33 - Obstructive sleep apnea (adult) (pediatric) Status: Acute Subjective Date/time seen: 11/23/19 12:48 Interval history: rectal container was removed, still with diarrhea but softer now. Tolerating diet Review of Systems Review of Systems: All systems reviewed & are unremarkable except as noted in HPI and below Exam Const: General: comfortable and no acute distress Other: obese, comfortable lying in bed, b/l leg amputee in special mattress HENMT: General nose exam: Normal nares present Eyes: General: appearance normal, both eyes and all related structures Neck: Neck: no JVD Resp: Auscultation: clear to auscultation bilaterally Cardio: Rate: regular rate Rhythm: regular rhythm GI: Inspection: non-distended GI Palp: Yes Soft to palpation Auscultation: normal bowel sounds Skin: General skin exam: normal color Neuro: Speech: normal speech Extrem: Other: Patient has a left above the knee amputation and right [id number] amputation Psych: Mental Status: mental status grossly normal Objective Data Vital Signs Vital Signs: Vital Signs - 24 hr 11/22/19 14:00 11/22/19 18:00 11/22/19 21:46 Temperature 97.4 F L 96.6 F L 97.0 F L Pulse Rate 64 69 72 Respiratory Rate 18 16 18 Blood Pressure 137/71 141/57 H 138/74 Pulse Oximetry 97 97 98 11/23/19 02:50 11/23/19 05:00 11/23/19 10:00 Temperature 97.1 F L 97.2 F L 97.3 F L Pulse Rate 88 75 56 L Respiratory Rate 20 16 16 Blood Pressure 146/77 H 141/72 H 134/66 Pulse Oximetry 97 97 100 Intake/Output Intake/Output: Intake & Output 11/20/19 11/21/19 11/22/19 11/23/19 23:59 23:59 23:59 23:59 Intake Total 3447 3080 2815 1420 Output Total 2125 1775 1195 900 Balance 1322 1305 1620 520 Meds/Results Medications: Active Medications Generic Name Dose Route Start Last Admin Trade Name Freq PRN Reason Stop Dose Admin Acetaminophen 650 mg 11/15/19 18:02 Tylenol Tablet PO Q4H PRN Mild Pain (1-3) or Fever Albuterol 2 puff 11/15/19 21:53 Proventil Hfa INHALATION QIDRT PRN shortness of breath or wheezing Apixaban 5 mg 11/16/19 09:00 11/23/19 08:57 Eliquis PO 5 mg BID FAROOQ Administration Carvedilol 40 mg 11/16/19 09:00 11/23/19 08:56 Coreg Cr PO 12/16/19 09:01 40 mg DAILY FAROOQ Administration Dextrose 12.5 gm 11/18/19 18:40 Dextrose 50% Syringe IV PUSH PRN PRN Hypoglycemia Protocol Digoxin 125 mcg 11/16/19 09:00 11/16/19 09:53 Lanoxin Tab PO 125 mcg DAILY FAROOQ Administration Ferrous Sulfate 324 mg 11/20/19 17:55 11/23/19 08:57 Ferrous Sulfate PO 324 mg BIDWM FAROOQ Administration Fidaxomicin 200 mg 11/15/19 21:15 11/23/19 08:57 Dificid PO 11/25/19 09:01 200 mg Q12HR FAROOQ Administration Gabapentin 800 mg 11/16/19 09:00 11/23/19 12:04 Neurontin PO 800 mg TID FAROOQ Administration Glucagon 1 mg 11/18/19 18:40 Glucagon For Inj IM
[2019-11-23 14:00] VITALS: BP 136/57; PULSE 68; RESP 18; TEMP 36.4; O2SAT 98
--- NOTE | 2019-11-23 15:26 | PCDIET ---
Nutrition Follow-Up Complete: Altered GI fx r/t cdiff as evidence by chronic diarrhea and positive stool testing PO intake of meals and supplements at 50% or greater Goal:Goal met. Continue goal. Pt current nutrition is DBCC +Banatrol and gluecerna . Nutrition recommendation: Agree Last recorded weight is 161.7 kg (recommend new wt) Bowel Motility: Fecal tube (reduction to small liquid from large three days ago) Labs Reviewed:Glucose 146 Meds Noted:Rocephin, Fe, Lantus, LR, S boulardi, Vancomycin Additional Notes: Pt intake averaging 78%. Bowel amount lessening. Pt positive for Cdiff and salmonella. Banatrol offered TID in glucerna to help bulk stools and improve microbiome. Current [facility] diet appropriate. We will continue to monitor every five days.
--- NOTE | 2019-11-23 16:10 | PM.IMPN ---
Progress Note: A&P Assessment and Plan (1) C. difficile colitis: Code(s): A04.72 - Enterocolitis due to Clostridium difficile, not specified as recurrent Status: Acute Assessment and Plan: Stool cultures came back positive for C diff He had been on Fidaxomicin 200 mg Q12hrs and vancomycin pt is doing better hopeful dischage brenna (2) Salmonella infection: Code(s): A02.9 - Salmonella infection, unspecified Status: Acute Assessment and Plan: Patient's stool cultures came back positive for salmonella infection to his stools. pt is on iv rocephin for this. discuseed social situation pt lives with his brother in [facility] (3) Diarrhea: Qualifiers: Diarrhea type: unspecified type Qualified Code(s): R19.7 - Diarrhea, unspecified Code(s): R19.7 - Diarrhea, unspecified Status: Acute Assessment and Plan: The patient has had multiple bouts of C diff in the past. (4) Acute worsening of stage 3 chronic kidney disease: Code(s): N18.3 - Chronic kidney disease, stage 3 (moderate) Status: Resolved Assessment and Plan: creatinine was at baseline which is 1 arf resolved, seen by nephrology (5) Diabetes mellitus with hyperglycemia: Code(s): E11.65 - Type 2 diabetes mellitus with hyperglycemia Status: Acute Assessment and Plan: Continue monitoring glucose levels Accu-Cheks a.c. HS, hypoglycemia protocol. Moderate sliding scale insulin. (6) Fever: Code(s): R50.9 - Fever, unspecified Status: Acute Assessment and Plan: Likely due to the patient's infectious diarrhea. fevereresolved now. (7) Atrial fibrillation: Qualifiers: Atrial fibrillation type: unspecified Qualified Code(s): I48.91 - Unspecified atrial fibrillation Code(s): I48.91 - Unspecified atrial fibrillation Status: Acute Assessment and Plan: Controlled heart rate. continue Eliquis during admission. (8) Diastolic dysfunction: Code(s): I51.89 - Other ill-defined heart diseases Status: Acute Assessment and Plan: He appears to be euvolemic but labs suggest dehdyration. stop fluids pt is eating more (9) Thrombocytopenia: Code(s): D69.6 - Thrombocytopenia, unspecified Status: Acute Assessment and Plan: Seen by dr mehrdad medina on hold pt is on apixaban Subjective Date/time seen: 11/23/19 16:10 Interval history: Can remove rectal tube and urinary catheter pt is improving, diarrhea is improving. doing well. Review of Systems Review of Systems: All systems reviewed & are unremarkable except as noted in HPI and below Exam Narrative: Exam Narrative: chronically ill, bilateral amputee in bed Const: General: cooperative and healthy appearing; No in distress Nutritional Appearance: obese Orientation/consciousness: oriented to person HENMT: Head: normal to inspection Resp: Effort & Inspection: no respiratory distress Auscultation: no rhonchi and no wheezes Cardio: Rate: regular rate Rhythm: regular rhythm Neuro: General: oriented to person Objective Data Vital Signs Vital Signs: Vital Signs - 24 hr 11/22/19 18:00 11/22/19 21:46 11/23/19 02:50 Temperature 35.9 C L 36.1 C L 36.2 C L Pulse Rate 69 72 88 Respiratory Rate 16 18 20 Blood Pressure 141/57 H 138/74 146/77 H Pulse Oximetry 97 98 97 11/23/19 05:00 11/23/19 10:00 11/23/19 14:00 Temperature 36.2 C L 36.3 C L 36.4 C L Pulse Rate 75 56 L 68 Respiratory Rate 16 16 18 Blood Pressure 1
[2019-11-23 17:52] LABS: Glucose Point of Care 111 (65-105)
[2019-11-23 18:00] VITALS: BP 145/81; PULSE 65; RESP 18; TEMP 36.6; O2SAT 98
[2019-11-23 20:00] VITALS: BP 129/64; PULSE 75; RESP 22; TEMP 36.6; O2SAT 97
[2019-11-23 20:36] LABS: Glucose Point of Care 123 (65-105)
[2019-11-24] VITALS: BP 138/74; PULSE 69; RESP 20; TEMP 36.1; O2SAT 98
[2019-11-24 04:00] VITALS: BP 141/57; PULSE 64; RESP 20; TEMP 36.1; O2SAT 97
[2019-11-24] MEDS: SALINE LOCK FLUSH 10 ML IV PUSH (05:03)
[2019-11-24] MEDS: VANCOMYCIN ORAL 125 MG/2.5 ML SYRUP PO (05:03)
[2019-11-24 05:40] LABS: Hematocrit 33.6 % (42.0-52.0); Hemoglobin 10.6 g/dL (14.0-18.0); Mean Corpuscular HGB Conc 31.5 g/dl (32-36); Mean Corpuscular Hemoglobin 28.3 pg (26-34); Mean Corpuscular Volume 89.8 fl (80-100); Mean Platelet Volume 8.9 fl (7.4-10.4); Platelet Count Result 206 k/mm3 (150-375); Red Blood Count 3.74 M/mm3 (4.6-6.20); Red Cell Distribution Width 15.3 % (11.5-14.5); White Blood Count 6.9 K/mm3 (4.5-10.0)
[2019-11-24 05:55] LABS: Anion Gap 9.6 mmol/L (7-16); Blood Urea Nitrogen 9 mg/dL (9-20); Calcium 8.3 mg/dL (8.4-10.2); Carbon Dioxide 24 mmol/L (22-30); Chloride 112 mmol/L (98-107); Estimated CRCL calculation 162 ml/min; Estimated Glomerular Filt Rate > 60; Glucose 133 mg/dL (75-110); Potassium 4.6 mmol/L (3.4-5.0); Sodium 141 mmol/L (137-145)
[2019-11-24 08:02] LABS: Glucose Point of Care 138 (65-105)
[2019-11-24] MEDS: POTASSIUM CHLORIDE 20 MEQ TABLET.ER 40 MEQ PO (09:36)
[2019-11-24] MEDS: SACCHAROMYCES BOULARDII 250 MG CAPSULE PO (09:36)
[2019-11-24] MEDS: FERROUS SULFATE 324 MG TABLET PO (09:36)
[2019-11-24 09:37] VITALS: PULSE 66
[2019-11-24] MEDS: APIXABAN 5 MG TABLET PO (09:37)
[2019-11-24] MEDS: GABAPENTIN 400 MG CAPSULE 800 MG PO (09:37)
[2019-11-24] MEDS: FIDAXOMICIN 200 MG TABLET PO (09:37)
[2019-11-24] MEDS: INSULIN GLARGINE (*BKC) 100 UNITS/ML 60 UNITS SUB-Q (09:39)
[2019-11-24] MEDS: TOLNAFTATE 1% POWDER 45 GM BTL 1 APPLIC TOPICAL (09:40)
--- NOTE | 2019-11-24 10:28 | WPDGIPROGNO ---
Progress Note: A&P Assessment and Plan (1) C. difficile colitis: Code(s): A04.72 - Enterocolitis due to Clostridium difficile, not specified as recurrent Status: Acute Assessment and Plan: Patient apparently has both C difficile and salmonella infections concomitant we. Now on treatment. Plan is to continue treatment for a total of 10 days after discharge. Probably either vancomycin or Dificid rather than both his suggest. (2) Salmonella infection: Code(s): A02.9 - Salmonella infection, unspecified Status: Acute Assessment and Plan: Public health department is already contacted the patient. No obvious source of infection at this time. (3) Morbid obesity: Code(s): E66.01 - Morbid (severe) obesity due to excess calories Status: Acute Subjective Date/time seen: 11/24/19 10:28 Patient reports that his diarrhea has improved. He anticipates going home today. Review of Systems Review of Systems: All systems reviewed & are unremarkable except as noted in HPI and below Exam Const: Other: Physical exam reveals abdomen to be quite obese. Abdomen bowel sounds are present soft nontender with no organomegaly. Objective Data Vital Signs Vital Signs: Vital Signs - 24 hr 11/23/19 14:00 11/23/19 18:00 11/23/19 20:00 Temperature 97.5 F L 97.8 F 97.9 F Pulse Rate 68 65 75 Respiratory Rate 18 18 22 H Blood Pressure 136/57 L 145/81 H 129/64 Pulse Oximetry 98 98 97 11/24/19 00:00 11/24/19 04:00 11/24/19 09:37 Temperature 97.0 F L 96.9 F L Pulse Rate 69 64 66 Respiratory Rate 20 20 Blood Pressure 138/74 141/57 H Pulse Oximetry 98 97 Intake/Output Intake/Output: Intake & Output 11/21/19 11/22/19 11/23/19 11/24/19 23:59 23:59 23:59 23:59 Intake Total 3080 2815 3539 880 Output Total 1775 1195 1150 Balance 1305 1620 2389 880 Meds/Results Medications: Active Medications Generic Name Dose Route Start Last Admin Trade Name Freq PRN Reason Stop Dose Admin Acetaminophen 650 mg 11/15/19 18:02 Tylenol Tablet PO Q4H PRN Mild Pain (1-3) or Fever Albuterol 2 puff 11/15/19 21:53 Proventil Hfa INHALATION QIDRT PRN shortness of breath or wheezing Apixaban 5 mg 11/16/19 09:00 11/24/19 09:37 Eliquis PO 5 mg BID FAROOQ Administration Carvedilol 40 mg 11/16/19 09:00 11/24/19 09:37 Coreg Cr PO 12/16/19 09:01 40 mg DAILY FAROOQ Administration Dextrose 12.5 gm 11/18/19 18:40 Dextrose 50% Syringe IV PUSH PRN PRN Hypoglycemia Protocol Digoxin 125 mcg 11/16/19 09:00 11/16/19 09:53 Lanoxin Tab PO 125 mcg DAILY FAROOQ Administration Ferrous Sulfate 324 mg 11/20/19 17:55 11/24/19 09:36 Ferrous Sulfate PO 324 mg BIDWM FAROOQ Administration Fidaxomicin 200 mg 11/15/19 21:15 11/24/19 09:37 Dificid PO 11/25/19 09:01 200 mg Q12HR FAROOQ Administration Gabapentin 800 mg 11/16/19 09:00 11/24/19 09:37 Neurontin PO 800 mg TID FAROOQ Administration Glucagon 1 mg 11/18/19 18:40 Glucagon For Inj IM PRN PRN Hypoglycemia Protocol Glucose 15 gm 11/18/19 18:40 Glutose 15 PO PRN PRN Hypoglycemia Protocol Dextrose 1,000 mls @ 100 mls/hr 11/18/19 18:40 Dextrose 5% 1,000 Ml IVPB PRN PRN Hypoglycemia Protocol Ceftriaxone Sodium/Dextrose 1 gm in 50 mls @ 100 mls/hr 11/19/19 08:00 11/24/19 09:39 Rocephin 1 Gm/D5w 50 Ml IVPB 100 mls/hr Q24H FAROOQ Administration Insulin Aspart 20 units 11/18/19 17:00 11/24/19 09:27 Novolog SUB-Q Not Given TIDWM FAROOQ Insulin Aspart 3 - 6 units 11/18/19 18:34 11/24/19 08:53 Novolog SUB-Q Not Given TIDWM [facility] Protocol Insulin Glargine 60 units 11/19/19 21:00 11/24/19 09:39 Lantus SUB-Q 60 units Q12HR FAROOQ Administration Losartan Potassium 50 mg 11/16/19 09:00 11/16/19 09:53 Cozaar PO 50 mg DAILY FAROOQ Administration Miconazole Nit
--- NOTE | 2019-11-24 11:38 | PM.DS ---
DS: Admitting Diagnosis Admitting Diagnosis Admitting Diagnosis: Diarrhea, unspecified DS: Discharge Diagnosis Discharge Diagnosis (1) C. difficile colitis: Code(s): A04.72 - Enterocolitis due to Clostridium difficile, not specified as recurrent Status: Acute Assessment and Plan: Stool cultures came back positive for C diff He had been on Fidaxomicin 200 mg Q12hrs and vancomycin Pt is doing better hopeful discharge tomorrow, pt to continue with dificid at home and vancomycin at home (2) Salmonella infection: Code(s): A02.9 - Salmonella infection, unspecified Status: Acute Assessment and Plan: Patient's stool cultures came back positive for salmonella infection to his stools. Pt is on iv rocephin for this. Pts diarrhea is much improved wcc is nl, rectal tube is out. discussed social situation pt lives with his brother in [facility] hand hygiene discussed (3) Diarrhea: Qualifiers: Diarrhea type: unspecified type Qualified Code(s): R19.7 - Diarrhea, unspecified Code(s): R19.7 - Diarrhea, unspecified Status: Acute Assessment and Plan: The patient has had multiple bouts of C diff in the past. (4) Acute worsening of stage 3 chronic kidney disease: Code(s): N18.3 - Chronic kidney disease, stage 3 (moderate) Status: Resolved Assessment and Plan: Creatinine was at baseline which is 1 arf resolved, seen by nephrology here had fluid hydration (5) Diabetes mellitus with hyperglycemia: Code(s): E11.65 - Type 2 diabetes mellitus with hyperglycemia Status: Acute Assessment and Plan: Continue monitoring glucose levels Accu-Cheks a.c. HS, hypoglycemia protocol. Moderate sliding scale insulin. (6) Fever: Code(s): R50.9 - Fever, unspecified Status: Acute Assessment and Plan: Likely due to the patient's infectious diarrhea. fevereresolved now. (7) Atrial fibrillation: Qualifiers: Atrial fibrillation type: unspecified Qualified Code(s): I48.91 - Unspecified atrial fibrillation Code(s): I48.91 - Unspecified atrial fibrillation Status: Acute Assessment and Plan: Controlled heart rate. continue Eliquis during admission. (8) Diastolic dysfunction: Code(s): I51.89 - Other ill-defined heart diseases Status: Acute Assessment and Plan: He appears to be euvolemic but labs suggest dehdyration. stop fluids pt is eating more (9) Thrombocytopenia: Code(s): D69.6 - Thrombocytopenia, unspecified Status: Acute Assessment and Plan: Seen by Dr Reginald medina on hold pt is on apixaba, while in the hospital. DS: Summary Time Spent with Patient Time attestation: Total time spent providing and/or coordinating discharge services:40 minutes on day of discharge Exam Narrative: Exam Narrative: chronically ill, bilateral amputee in bed Resp: Effort & Inspection: no respiratory distress Auscultation: no rhonchi and no wheezes Cardio: Rate: regular rate Rhythm: regular rhythm GI: Inspection: normal to inspection Auscultation: normal bowel sounds Other: BL amputee Neuro: General: oriented to person DS: Data Data Completed and Pending Labs on day of discharge: Labs from last 24 hours 11/24/19 11/24/19 11/24/19 07:47 05:04 05:04 WBC 6.9 RBC 3.74 L Hgb 10.6 L Hct 33.6 L MCV 89.8 MCH 28.3 MCHC 31.5 L RDW 15.3 H Plt Count 206 MPV 8.9 Sodium 141 Potassium 4.6 Chloride 112 H Carbo
[2019-11-24 12:07] LABS: Glucose Point of Care 140 (65-105)
== END 2019-11-24 14:23 | disposition home health service (06) | DRG 372 ==
LOC: ANHED 18:47 → ANH2MED 19:31
PROVIDERS: Internal Medicine; Internal Medicine Hematology & Oncology; Internal Medicine Nephrology; Physician Assistant; Admitting Provider Internal Medicine; Emergency Provider Emergency Medicine; PCP Internal Medicine; Visit Provider Family Medicine
DX: A04.72 Enterocolitis due to Clostridium difficile, not specified as recurrent (principal); I48.20 Chronic atrial fibrillation, unspecified; Z68.44 Body mass index [BMI] 60.0-69.9, adult; N17.9 Acute kidney failure, unspecified; A02.0 Salmonella enteritis; E66.01 Morbid (severe) obesity due to excess calories; R19.7 Diarrhea, unspecified; N18.3 Chronic kidney disease, stage 3 (moderate); E11.22 Type 2 diabetes mellitus with diabetic chronic kidney disease; E11.21 Type 2 diabetes mellitus with diabetic nephropathy; E11.65 Type 2 diabetes mellitus with hyperglycemia; E11.42 Type 2 diabetes mellitus with diabetic polyneuropathy; E11.51 Type 2 diabetes mellitus with diabetic peripheral angiopathy without gangrene; I73.9 Peripheral vascular disease, unspecified; E11.319 Type 2 diabetes mellitus with unspecified diabetic retinopathy without macular edema; D63.1 Anemia in chronic kidney disease; E86.0 Dehydration; G47.33 Obstructive sleep apnea (adult) (pediatric); D69.6 Thrombocytopenia, unspecified; Z79.01 Long term (current) use of anticoagulants; Z89.511 Acquired absence of right leg below knee; Z89.612 Acquired absence of left leg above knee
CPT/HCPCS: 36415; 36569; 51701; 74018; 74177; 76775; 80048; 80053; 80069; 80162; 81001; 82550; 82570; 82607; 82728; 83540; 83550; 83615; 83735; 84132; 84156; 84300; 85025; 85027; 85046; 86023; 87040; 87045; 87046; 87186; 87269; 87272; 87324; 87427; 87493; 96361; 96374; 96375; 97161; 97165; 99285; A9270; C1751; G0378; J0696; J1815; J2270; J2405; J2765; J3475; J7030; J7120; Q9967

== ENCOUNTER 2019-11-28 20:55 | Inpatient (IN) | payer MEDICARE, OTHER, SELFPAY ==
--- NOTE | ~2019-11-28 | XR_ITS ---
EXAMINATION: XR chest 1V portable EXAM DATE: 11/28/2019 21:46 INDICATION: Weakness, diarrhea, history of atrial fibrillation and CHF. TECHNIQUE: Portable AP frontal chest x-ray was obtained. Comparison is made to prior examination from 08/15/2019. FINDINGS: The cardiomediastinal silhouette is prominent but magnified on this AP technique. No conflu ent consolidation, pneumothorax or pleural effusion suspected. There are no osseous abnormalities tru ntified. IMPRESSION: No acute cardiopulmonary findings. Reviewed, dictated and finalized at location A.
--- NOTE | ~2019-11-28 | CT_ITS ---
EXAMINATION: CT abdomen pelvis w con EXAM DATE: 11/28/2019 22:54 INDICATION: Abdominal pain, diarrhea, diagnosed with C. difficile on Tuesday. TECHNIQUE: Spiral CT of the abdomen and pelvis was performed following intravenous injection of 100 m L Omnipaque 350. Axial, coronal and sagittal images were reviewed. The dose-length product (DLP) fo r this examination was 1620.08 mGy-cm. The exposure was tailored according to patient size (auto mA exposure control), and iterative reconstruction (ASIR) was used as additional dose reduction techniqu e. Comparison is made to prior examination from 11/15/2019. FINDINGS: The liver, spleen, adrenal glands and pancreas are unremarkable. There is cholelithiasis w ithin an otherwise unremarkable gallbladder. No evidence of obstructive biliary disease. Portal and splenic veins are patent. Kidneys enhance symmetrically. There is no hydronephrosis. The prostat e is unremarkable. The bladder is unremarkable. There is no retroperitoneal or pelvic lymphadenopat hy. The appendix is normal. The stomach and small bowel are unremarkable. There is colonic fluid, corre late for diarrhea. No free intraperitoneal gas. Small to moderate right pleural effusion with adj acent segmental atelectasis. Trace pericardial effusion. The lung bases are unremarkable. There are no osteoblastic or osteolytic lesions identified. IMPRESSION: 1. Colonic fluid, correlate for diarrhea. No colonic pneumatosis, abscess or free intraperitoneal ga s. 2. Small to moderate right pleural effusion, adjacent atelectasis. 3. Cholelithiasis. Reviewed, dictated and finalized at location A. IMPRESSION: 1. Colonic fluid, correlate for diarrhea. No colonic pneumatosis, abscess or f ree intraperitoneal gas. 2. Small to moderate right pleural effusion, adjacent atelectasis. 3. Cholelithiasis.
[2019-11-28 20:58] VITALS: BP 104/47; PULSE 90; RESP 19; TEMP 37.9; O2SAT 96
[2019-11-28 21:03] VITALS: PULSE 88
[2019-11-28 21:15] LABS: Basophils Absolute Auto 0.1 K/mm3 (0.0-0.1); Basophils Percent Auto 0.3 % (0.2-1.2); Eosinophils Absolute Auto 0.1 K/mm3 (0-0.3); Eosinophils Percent Auto 0.5 % (0-4.4); Hematocrit 36.9 % (42.0-52.0); Hemoglobin 11.9 g/dL (14.0-18.0); Immature Granulocyte Absolute 0.09 K/mm3 (0.00-0.031); Immature Granulocyte Percent A 0.6 % (0-0.5); Lymphocytes Absolute Auto 1.39 K/mm3 (0.9-3.2); Lymphocytes Percent Auto 9.3 % (18.3-44.2); Mean Corpuscular HGB Conc 32.2 g/dl (32-36); Mean Corpuscular Hemoglobin 28.3 pg (26-34); Mean Corpuscular Volume 87.6 fl (80-100); Mean Platelet Volume 8.8 fl (7.4-10.4); Monocytes Absolute Auto 0.9 K/mm3 (0.1-0.6); Neutrophils Absolute Auto 12.4 K/mm3 (1.3-6.7); Neutrophils Percent Auto 83.3 % (45.5-73.1); Platelet Count Result 230 k/mm3 (150-375); Red Blood Count 4.21 M/mm3 (4.6-6.20); Red Cell Distribution Width 14.6 % (11.5-14.5); White Blood Count 14.9 K/mm3 (4.5-10.0)
--- NOTE | 2019-11-28 21:23 | ED.GENADULT ---
HPI - General Adult General Chief complaint: Weakness Stated complaint: weak Time Seen by Provider: 11/28/19 21:05 Source: patient History of Present Illness HPI narrative: Patient is a 59 y/o male complaining of severe generalized weakness starting today. He states that he is unable to transfer from bed to wheel chair. There is no alleviating or exacerbating factor. He also has abdominal pain, diarrhea and rectal pain. He denies any fever or vomiting. Of note, he was recently diagnosed with Salmonella and C diff. Related Data Home Medications Medication Instructions Recorded Confirmed apixaban 5 mg tablet 5 mg PO BID 05/14/19 11/29/19 carvedilol phosphate 80 mg 40 mg PO DAILY 05/14/19 11/29/19 capsule,[id number] multiphase digoxin 250 mcg (0.25 mg) tablet 125 mcg PO DAILY 05/14/19 11/29/19 gabapentin 600 mg tablet 800 mg PO TID 05/14/19 11/29/19 insulin regular hum U-500 conc See Rx Instructions .ROUTE .COMPLEX 05/14/19 11/29/19 Livalo 4 mg PO DAILY 08/12/19 11/29/19 losartan 50 mg PO DAILY 08/12/19 11/29/19 spironolactone 25 mg PO DAILY 08/12/19 11/29/19 torsemide 20 mg PO QAM 08/12/19 11/29/19 Lantus U-100 Insulin 75 unit SUB-Q BID 11/15/19 11/29/19 potassium chloride 20 meq PO TID 11/19/19 11/29/19 vancomycin 125 mg PO Q6H 11/29/19 11/29/19 Allergies Allergy/AdvReac Type Severity Reaction Status Date / Time meperidine Allergy Unknown Other Verified 11/28/19 21:04 Review of Systems Constitutional: Constitutional: Denies chills, Denies fever(s), Denies headache(s) and Reports weakness Eyes: Eyes: Denies blurry vision ENT: Denies headache(s) and Denies neck pain Cardiovascular: Cardiovascular: Denies chest pain and Denies dyspnea Respiratory: Respiratory: Denies cough and Denies dyspnea Gastrointestinal: Gastrointestinal: Reports abdominal pain, Reports diarrhea, Denies nausea and Denies vomiting Genitourinary: Genitourinary: Denies hematuria and Denies dysuria Musculoskeletal: Musculoskeletal: Denies back pain and Denies neck pain Neurologic: Denies headache(s) and Reports weakness PMFSH Past Medical History Medical History Atrial fibrillation On chronic anticoagulation with Eliquis Chronic kidney disease, stage 3 Diabetes mellitus type 2 in obese Diabetic nephropathy Diabetic peripheral neuropathy Diastolic dysfunction Last echocardiogram March 2018 demonstrated normal EF of 65-70 with moderate LVH and severe left atrial enlargement Hyperlipidemia Obstructive sleep apnea treated with BiPAP patient is noncompliant with his BiPAP Peripheral vascular disease Surgical History Surgical History History of appendectomy History of bilateral carpal tunnel release History of left above knee amputation History of right below knee amputation Family History Family History Sibling Lung cancer Sister Hypertension Father Diabetes mellitus Coronary artery disease Hypertension Other Family history of arthritis Social History Social History Social History: Primary care physician: Dr. 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 He is on disability due to his peripheral vascular disease and bilateral lower extremity amputations. Gender identity (if verbalized by the patient): Male Spiritual care concerns: No Agree to blood products: Yes Exam Const: General: no acute distress and well developed Orientation/consciousness: oriented to person, oriented to place, oriented to time and patient oriented x3 HENMT: Head: normocephalic Ears: external ears normal General nose
[2019-11-28 21:27] LABS: Alanine Aminotransferase 27 U/L (4-50); Albumin Level 3.5 g/dL (3.5-5.1); Alkaline Phosphatase 62 U/L (38-126); Anion Gap 10.8 mmol/L (7-16); Aspartate Amino Transferase 47 U/L (17-59); Bilirubin,Total 0.6 mg/dL (0.2-1.3); Blood Urea Nitrogen 20 mg/dL (9-20); Carbon Dioxide 30 mmol/L (22-30); Chloride 100 mmol/L (98-107); Estimated Glomerular Filt Rate > 60; Glucose 118 mg/dL (75-110); Potassium 4.8 mmol/L (3.4-5.0); Sodium 136 mmol/L (137-145)
[2019-11-28] MEDS: SODIUM CHLORIDE 0.9% IV 1,000 ML 999 ML IV CONT (21:27)
[2019-11-28 21:45] LABS: Lactic Acid Reflex 1.3 mmol/L (0.7-2.1)
--- NOTE | 2019-11-28 21:56 | PC.NURSE ---
pt has redness and open wounds to his bilateral buttocks and legs.
[2019-11-28 22:00] VITALS: BP 102/54; PULSE 80; RESP 16; O2SAT 96
[2019-11-28 22:12] LABS: Add Urine Microscopic? YES; Appearance Urine Clear (Clear); Bilirubin Urine Negative (Negative); Blood Urine 1+ (Negative); Color Urine Yellow (Yellow); Glucose Urine UA Negative (Negative); Ketones Urine Negative (Negative); Leukocyte Esterase Ur Negative LEU/UL (Negative); Mucus Urine Rare /lpf; Nitrate Urine Negative (Negative); Protein Urine 1+ mg/dL (Negative); RBC Urine 0-2 /hpf (0-2); Urobilinogen Urine Negative mg/dL (<2.0); WBC Urine 0-3 /hpf
--- NOTE | 2019-11-28 23:24 | ECG_ITS ---
Measurements Intervals [place] Rate: 73 P: SD: 0 QRS: -27 QRSD: 85 T: 30 QT: 390 QTc: 431 Interpretive Statements ATRIAL FIBRILLATION LOW QRS VOLTAGE IN LIMB LEADS BORDERLINE R WAVE PROGRESSION, ANTERIOR LEADS BORDERLINE T WAVE ABNORMALITY- DIFFUSE LEADS BASELINE ARTIFACT- I, II, III, V1-V2 ABNORMAL ECG Electronically Signed On 11-30-2019 9:56:48 CDT by Jayjay Barnes D.O.
[2019-11-28 23:36] VITALS: BP 124/60; PULSE 86; RESP 18; O2SAT 98
[2019-11-28] MEDS: KETOROLAC 30 MG/ML VIAL (*BKC) IV PUSH (23:53)
[2019-11-29] VITALS (8 sets, daily range): BP systolic 98–124; BP diastolic 46–58; PULSE 64–110; RESP 12–20; TEMP 36–36.8; O2SAT 95–100; BMI 53.7; BMI 10.0
--- NOTE | 2019-11-29 02:01 | ADMGEN ---
This patient, Lester Nguyễn, was admitted to Medical Room 348-01. Patient/family oriented to hospital policies and general routines including ID bracelet, bed and alarms, visiting hours, pain management, procedures, bathroom and other care routines, personal items, smoking policy, room service/diet, and visiting hours. Valuables list has been completed. Information on how to activate the Rapid Response Team has been discussed. Patient/Family are encouraged to report perceived risks to care and to ask questions if they do not understand what they are told or what they should do.
[2019-11-29] MEDS: SODIUM CHLORIDE 0.9% IV 1,000 ML 125 ML IV CONT ×2 (02:44→10:47)
--- NOTE | 2019-11-29 04:10 | PCRCNOTE ---
Pt states he does not wear CPAP at home.
[2019-11-29 05:46] LABS: Basophils Percent Auto 0.3 % (0.2-1.2); Eosinophils Absolute Auto 0.2 K/mm3 (0-0.3); Eosinophils Percent Auto 1.7 % (0-4.4); Hematocrit 35.5 % (42.0-52.0); Hemoglobin 11.2 g/dL (14.0-18.0); Immature Granulocyte Absolute 0.05 K/mm3 (0.00-0.031); Immature Granulocyte Percent A 0.5 % (0-0.5); Lymphocytes Absolute Auto 1.56 K/mm3 (0.9-3.2); Lymphocytes Percent Auto 15.5 % (18.3-44.2); Mean Corpuscular HGB Conc 31.5 g/dl (32-36); Mean Corpuscular Hemoglobin 28.1 pg (26-34); Mean Platelet Volume 8.6 fl (7.4-10.4); Monocytes Absolute Auto 0.9 K/mm3 (0.1-0.6); Monocytes Percent Auto 9.3 % (2.6-8.5); Neutrophils Absolute Auto 7.3 K/mm3 (1.3-6.7); Neutrophils Percent Auto 72.7 % (45.5-73.1); Platelet Count Result 194 k/mm3 (150-375); Red Blood Count 3.99 M/mm3 (4.6-6.20); Red Cell Distribution Width 14.6 % (11.5-14.5)
[2019-11-29 06:01] LABS: Blood Urea Nitrogen 22 mg/dL (9-20); Calcium 7.7 mg/dL (8.4-10.2); Carbon Dioxide 30 mmol/L (22-30); Chloride 101 mmol/L (98-107); Estimated CRCL calculation 94 ml/min; Estimated Glomerular Filt Rate > 60; Glucose 82 mg/dL (75-110); Magnesium 1.6 mg/dL (1.6-2.3); Sodium 136 mmol/L (137-145)
[2019-11-29] MEDS: VANCOMYCIN ORAL 125 MG/2.5 ML SYRUP PO ×3 (06:29→17:22)
[2019-11-29 08:06] LABS: Glucose Point of Care 96 (65-105)
--- NOTE | 2019-11-29 09:49 | PM.IMHP ---
H&P: HPI History of Present Illness Date/Time: 11/29/19 09:49 Chief complaint: weakness c diff Narrative: Lester Nguyễn is a 59 year old male With a history of diabetes, chronic kidney disease, bilateral lower extremity amputation secondary to peripheral vascular disease, and C diff colitis, who presented to the emergency room via EMS with generalized weakness. The patient was initially admitted on 11/15/2019 and was found to have salmonella and C diff colitis. he was treated with oral Dificid and vancomycin as well as ceftriaxone for his salmonella infection. The patient was discharged on 11/24/2019 after his bowel movements improved and he was stable to go home. He states for the 1st few days he did not have many bowel movements but then he began to have a few more frequent bowel movements ranging from 2-5 per day. He states yesterday he was in the shower taking a bath and he was too weak to get himself out of the bathtub and into his wheelchair. At that time he had to call 911 and have firemen remove him from his bathtub in get him back into his wheelchair. Then he reports worsening weakness throughout the rest of the day and he called [facility] who told him to come to the emergency room if he had any issues or concerns. He states he was also having some shaking chills, but denies any fevers, diaphoresis. He also reported some lightheadedness but denies any near syncope, syncope or dizziness. He states his glucose has been running lower than normal so he has only been taking his Lantus and not his sliding scale insulin with meals. Yesterday he woke up and his glucose was 51 and he corrected by eating some peanut butter and was otherwise stable the rest of the day. he does report some slight abdominal discomfort to his epigastric area and a decreased appetite while at home. He denies any chest pain, shortness of breath, cough, runny nose, congestion, nausea, vomiting, increased swelling, headache, dark /tarry stools, bloody stools, or any other symptoms at this time. Initial vital signs showed low-grade fever of 100.2, blood pressure 104/47, heart rate 90, respiratory rate 19, oxygen saturation 96% on room air. Initial labs showed leukocytosis at 14,900 with a slight left shift, stable normocytic anemia with hemoglobin 11.9/hematocrit 36.9, slight hyponatremia at 1:36 a.m., glucose at 118, otherwise normal CMP. Urinalysis showed 1+ protein, 1+ blood, 3-4 hyaline casts otherwise no acute infection. Chest x-ray showed no acute cardiopulmonary findings. CT abdomen pelvis showed Colonic fluid, correlate for diarrhea. No colonic pneumatosis, abscess or free intraperitoneal gas. Small to moderate right pleural effusion, adjacent atelectasis. the patient was admitted into the hospital for generalized weakness, for further evaluation and started on some IV fluids and continued on antibiotics for C diff colitis infection. Code status: full code POA: Zeb Mccloud, Friend PCP: Dr. Reyes Review of Systems Review of Systems: All systems reviewed & are unremarkable except as noted in HPI and below PMFSH Past Medical History Medical History Atrial fibrillation On chronic anticoagulation with Eliquis C. difficile colitis Chronic kidney disease, stage 3 Diabetes mellitus type 2 in obese Diabetic nephropathy Diabetic peripheral neuropathy Diastolic dysfunction Last echocardiogram March 2018 demonstrated normal EF of 65-70 with moderate LVH and severe left atrial enlargement Hyperlipidemia Obstructive sleep apnea treated with BiPAP patient is noncompliant with his BiPAP Peripheral vascular disease Surgical History Surgical History History of appendectomy History of bilateral carpal tunnel release History of left above knee amputation History of right below knee amputation Family History Family History (Review
[2019-11-29] MEDS: FERROUS SULFATE 324 MG TABLET PO ×2 (10:39→17:20)
[2019-11-29] MEDS: DIGOXIN TAB 125 MCG TABLET PO (10:39)
[2019-11-29] MEDS: APIXABAN 5 MG TABLET PO ×2 (10:40→22:05)
[2019-11-29] MEDS: FIDAXOMICIN 200 MG TABLET PO ×2 (10:41→22:05)
[2019-11-29] MEDS: GABAPENTIN 400 MG CAPSULE 800 MG PO ×3 (10:41→17:21)
[2019-11-29] MEDS: POTASSIUM CHLORIDE 20 MEQ TABLET.ER PO ×3 (10:41→17:21)
[2019-11-29] MEDS: SACCHAROMYCES BOULARDII 250 MG CAPSULE PO ×2 (10:42→17:20)
[2019-11-29] MEDS: TORSEMIDE 20 MG TABLET PO (10:43)
[2019-11-29] MEDS: MAGNESIUM SULF 2 GM/WATER 50ML 2 GM/50 ML BAG IVPB (10:46)
[2019-11-29 11:48] LABS: Glucose Point of Care 176 (65-105)
[2019-11-29 16:32] LABS: Glucose Point of Care 185 (65-105)
[2019-11-30] MEDS: VANCOMYCIN ORAL 125 MG/2.5 ML SYRUP PO ×4 (00:28→17:12)
[2019-11-30 04:36] LABS: Glucose Point of Care 245 (65-105)
[2019-11-30 06:00] VITALS: BP 127/59; PULSE 72; RESP 18; TEMP 36.1; O2SAT 99
[2019-11-30 06:17] LABS: Basophils Absolute Auto 0.1 K/mm3 (0.0-0.1); Basophils Percent Auto 0.7 % (0.2-1.2); Eosinophils Absolute Auto 0.1 K/mm3 (0-0.3); Eosinophils Percent Auto 1.7 % (0-4.4); Hematocrit 36.7 % (42.0-52.0); Hemoglobin 11.4 g/dL (14.0-18.0); Immature Granulocyte Absolute 0.04 K/mm3 (0.00-0.031); Immature Granulocyte Percent A 0.5 % (0-0.5); Lymphocytes Absolute Auto 1.11 K/mm3 (0.9-3.2); Lymphocytes Percent Auto 14.8 % (18.3-44.2); Mean Corpuscular HGB Conc 31.1 g/dl (32-36); Mean Corpuscular Hemoglobin 27.9 pg (26-34); Mean Corpuscular Volume 89.7 fl (80-100); Mean Platelet Volume 9.2 fl (7.4-10.4); Monocytes Absolute Auto 0.6 K/mm3 (0.1-0.6); Monocytes Percent Auto 7.9 % (2.6-8.5); Neutrophils Absolute Auto 5.6 K/mm3 (1.3-6.7); Neutrophils Percent Auto 74.4 % (45.5-73.1); Platelet Count Result 198 k/mm3 (150-375); Red Blood Count 4.09 M/mm3 (4.6-6.20); Red Cell Distribution Width 14.8 % (11.5-14.5); White Blood Count 7.5 K/mm3 (4.5-10.0)
[2019-11-30 06:56] LABS: Anion Gap 10.7 mmol/L (7-16); Blood Urea Nitrogen 24 mg/dL (9-20); CRP 7.2 mg/dL (<1.0); Calcium 7.9 mg/dL (8.4-10.2); Carbon Dioxide 29 mmol/L (22-30); Chloride 100 mmol/L (98-107); Estimated CRCL calculation 113 ml/min; Estimated Glomerular Filt Rate > 60; Glucose 270 mg/dL (75-110); Lactate Dehydrogenase 442 U/L (313-618); Magnesium 2.1 mg/dL (1.6-2.3); Potassium 4.7 mmol/L (3.4-5.0); Sodium 135 mmol/L (137-145)
[2019-11-30 08:09] LABS: Glucose Point of Care 281 (65-105)
[2019-11-30 09:26] VITALS: PULSE 72
[2019-11-30] MEDS: DIGOXIN TAB 125 MCG TABLET PO (09:26)
[2019-11-30] MEDS: FERROUS SULFATE 324 MG TABLET PO ×2 (09:26→17:11)
[2019-11-30] MEDS: SACCHAROMYCES BOULARDII 250 MG CAPSULE PO ×2 (09:26→17:11)
[2019-11-30] MEDS: GABAPENTIN 400 MG CAPSULE 800 MG PO ×3 (09:27→17:10)
[2019-11-30] MEDS: APIXABAN 5 MG TABLET PO ×2 (09:27→22:49)
[2019-11-30] MEDS: FIDAXOMICIN 200 MG TABLET PO (09:27)
[2019-11-30] MEDS: SPIRONOLACTONE 25 MG TABLET PO (09:28)
[2019-11-30] MEDS: POTASSIUM CHLORIDE 20 MEQ TABLET.ER PO ×3 (09:28→17:10)
[2019-11-30] MEDS: TORSEMIDE 20 MG TABLET PO (09:29)
[2019-11-30] MEDS: INSULIN ASPART (*BKC) 100 UNITS/ML SUB-Q ×3 (09:34→17:44)
[2019-11-30] MEDS: INSULIN GLARGINE (*BKC) 100 UNITS/ML 40 UNITS SUB-Q ×2 (09:36→22:50)
[2019-11-30 09:38] VITALS: RESP 18; O2SAT 98
[2019-11-30] MEDS: calcium polycarbophiL 625 MG TABLET PO ×2 (09:38→17:11)
[2019-11-30 11:43] LABS: Glucose Point of Care 283 (65-105)
--- NOTE | 2019-11-30 13:59 | PM.IMPN ---
Progress Note: A&P Assessment and Plan (1) Weakness: Code(s): R53.1 - Weakness Status: Acute Assessment and Plan: could be secondary to dehydration, viral infection, continued infection from C diff/Salmonella he is receiving IV fluid hydration Since arrival but he appears euvolemic at this time. Will discontinue IV fluids. continued on his oral antibiotics for C diff Ordered some testing which included ferritin which was normal, LDH which was normal and CRP was elevated at 7.2 which could be from his infectious colitis otherwise no acute new underlying infection, no UTI, no pneumonia noted, no acute abdominal changes from prior admission Lactic acid was normal upon arrival. vital signs are otherwise stable, afebrile, non tachycardic, stable blood pressure, normal respiratory rate and oxygenation. leukocytosis was improved from arrival and is now normal at 7,500 with no elevation to his neutrophil count. Physical and occupational therapy were ordered for further evaluation on the patient's weakness. at this time I feel the patient is in need of placement into a acute care rehab verses a SNF for further evaluation and treatment in secondary to his weakness and not having much help at home. Continue monitoring patient's labs and symptoms. (2) C. difficile colitis: Code(s): A04.72 - Enterocolitis due to Clostridium difficile, not specified as recurrent Status: Inactive Assessment and Plan: Continued him on Dificid and vancomycin orally for treatment of C diff. patient states after discharge he continued to have about 2-5 bowel movements per day. He is still on isolation but if he does not have diarrhea for 48 hours isolation can be discontinued. He was started on Dificid on 11/15/2019 (Day #15). Will discontinue Dificid treatment at this time He was started on Oral Vancomycin on 11/19/2019 (Day #11). after talking with my attending provider he recommended continuing vancomycin for 10 more days for continued treatment. Will add more bulking agents to his regiment which include FiberCon, banatrol. he had 4 bowel movements overnight and was still watery and diarrhea in nature. Continue monitoring patient's symptoms. He is still on isolation precautions. (3) Atrial fibrillation: Qualifiers: Atrial fibrillation type: unspecified chronic Qualified Code(s): I48.20 - Chronic atrial fibrillation, unspecified Code(s): I48.91 - Unspecified atrial fibrillation Status: Acute Assessment and Plan: Chronic atrial fibrillation on Eliquis and rate is well controlled. Will continue home meds. (4) Salmonella infection: Code(s): A02.9 - Salmonella infection, unspecified Status: Acute Assessment and Plan: patient was diagnosed with a salmonella infection and started on IV ceftriaxone on 11/17/2019 due to his continued profuse diarrhea. ceftriaxone was discontinued upon discharge which would of min he had about 7 days of treatment. (5) Chronic kidney disease, stage 3: Code(s): N18.3 - Chronic kidney disease, stage 3 (moderate) Status: Acute Assessment and Plan: Creatinine is at baseline. Creatinine this morning was 0.9. Stable. Will discontinue IV fluids at this time as he appears to be euvolemic. continue monitoring renal function and electrolytes. (6) Diastolic dysfunction: Code(s): I51.89 - Other ill-defined heart diseases Status: Acute Assessment and Plan: History of diastolic dysfunction on torsemide, spironolactone, and potassium supplementation. Will restart these medications and discontinue IV fluids at this time. His CT abdomen
[2019-11-30 14:00] VITALS: BP 129/54; PULSE 65; RESP 18; TEMP 35.9; O2SAT 99
[2019-11-30 17:33] LABS: Glucose Point of Care 351 (65-105)
[2019-11-30 21:49] VITALS: BP 130/52; PULSE 61; RESP 20; TEMP 36.6; O2SAT 96
[2019-11-30 22:58] LABS: SARS-CoV-2 RNA PCR Negative
[2019-11-30 23:08] LABS: Glucose Point of Care 381 (65-105)
[2019-12-01] MEDS: INSULIN ASPART (*BKC) 100 UNITS/ML SUB-Q ×4 (00:36→16:53)
[2019-12-01] MEDS: VANCOMYCIN ORAL 125 MG/2.5 ML SYRUP PO ×4 (00:36→17:32)
[2019-12-01 05:57] LABS: Basophils Absolute Auto 0.1 K/mm3 (0.0-0.1); Basophils Percent Auto 0.8 % (0.2-1.2); Eosinophils Absolute Auto 0.1 K/mm3 (0-0.3); Eosinophils Percent Auto 1.5 % (0-4.4); Hematocrit 33.8 % (42.0-52.0); Hemoglobin 10.8 g/dL (14.0-18.0); Immature Granulocyte Absolute 0.02 K/mm3 (0.00-0.031); Immature Granulocyte Percent A 0.3 % (0-0.5); Lymphocytes Absolute Auto 0.98 K/mm3 (0.9-3.2); Lymphocytes Percent Auto 15.1 % (18.3-44.2); Mean Corpuscular Hemoglobin 27.8 pg (26-34); Mean Corpuscular Volume 87.1 fl (80-100); Mean Platelet Volume 8.7 fl (7.4-10.4); Monocytes Absolute Auto 0.5 K/mm3 (0.1-0.6); Monocytes Percent Auto 7.1 % (2.6-8.5); Neutrophils Absolute Auto 4.9 K/mm3 (1.3-6.7); Neutrophils Percent Auto 75.2 % (45.5-73.1); Platelet Count Result 175 k/mm3 (150-375); Red Blood Count 3.88 M/mm3 (4.6-6.20); Red Cell Distribution Width 14.2 % (11.5-14.5); White Blood Count 6.5 K/mm3 (4.5-10.0)
[2019-12-01 06:00] VITALS: BP 141/63; PULSE 63; RESP 18; TEMP 36.7; O2SAT 100
[2019-12-01 06:08] LABS: Anion Gap 7 mmol/L (8-16); Blood Urea Nitrogen 21 mg/dL (9-20); CRP 3.9 mg/dL (<1.0); Calcium 8.3 mg/dL (8.4-10.2); Carbon Dioxide 29 mmol/L (22-30); Chloride 97 mmol/L (98-107); Estimated CRCL calculation 113 ml/min; Estimated Glomerular Filt Rate > 60; Glucose 351 mg/dL (75-110); Potassium 4.7 mmol/L (3.4-5.0); Sodium 133 mmol/L (137-145)
[2019-12-01 07:47] LABS: Glucose Point of Care 381 (65-105)
[2019-12-01 08:00] VITALS: PULSE 67; RESP 18; O2SAT 100
[2019-12-01 08:09] VITALS: PULSE 82
[2019-12-01] MEDS: FERROUS SULFATE 324 MG TABLET PO ×2 (08:09→17:01)
[2019-12-01] MEDS: INSULIN GLARGINE (*BKC) 100 UNITS/ML 55 UNITS SUB-Q ×2 (08:15→21:12)
[2019-12-01] MEDS: APIXABAN 5 MG TABLET PO ×2 (08:20→21:12)
[2019-12-01] MEDS: SACCHAROMYCES BOULARDII 250 MG CAPSULE PO ×2 (08:21→17:01)
[2019-12-01] MEDS: calcium polycarbophiL 625 MG TABLET PO ×2 (08:21→17:00)
[2019-12-01] MEDS: SPIRONOLACTONE 25 MG TABLET PO (08:21)
[2019-12-01] MEDS: GABAPENTIN 400 MG CAPSULE 800 MG PO ×3 (08:21→17:00)
[2019-12-01 09:27] VITALS: PULSE 67
[2019-12-01] MEDS: POTASSIUM CHLORIDE 20 MEQ TABLET.ER PO ×3 (09:27→17:00)
[2019-12-01] MEDS: DIGOXIN TAB 125 MCG TABLET PO (09:27)
[2019-12-01] MEDS: TORSEMIDE 20 MG TABLET PO (09:33)
--- NOTE | 2019-12-01 10:03 | PM.IMPN ---
Progress Note: A&P Assessment and Plan (1) Weakness: Code(s): R53.1 - Weakness Status: Acute Assessment and Plan: could be secondary to dehydration, viral infection, continued infection from C diff/Salmonella he is receiving IV fluid hydration Since arrival but he appears euvolemic at this time. Will discontinue IV fluids. Ordered some testing which included ferritin which was normal, LDH which was normal and CRP was elevated at 7.2 which could be from his infectious colitis otherwise no acute new underlying infection, no UTI, no pneumonia noted, no acute abdominal changes from prior admission Lactic acid was normal upon arrival. vital signs are otherwise stable, afebrile, non tachycardic, stable blood pressure, normal respiratory rate and oxygenation. leukocytosis was improved from arrival and is now normal at 6,500 with no elevation to his neutrophil count. Physical and occupational therapy were ordered for further evaluation on the patient's weakness. at this time I feel the patient is in need of placement into a acute care rehab verses a SNF for further evaluation and treatment in secondary to his weakness and not having much help at home. Continue monitoring patient's labs and symptoms. (2) C. difficile colitis: Code(s): A04.72 - Enterocolitis due to Clostridium difficile, not specified as recurrent Status: Inactive Assessment and Plan: Continued him on Dificid and vancomycin orally for treatment of C diff. patient states after discharge he continued to have about 2-5 bowel movements per day. He is still on isolation but if he does not have diarrhea for 48 hours isolation can be discontinued. He was started on Dificid on 11/15/2019 (Day #15). Will discontinue Dificid treatment (11/30/2019) He was started on Oral Vancomycin on 11/19/2019 (Day #12). after talking with my attending provider he recommended continuing vancomycin for 10 more days for continued treatment. Will add more bulking agents to his regiment which include FiberCon, banatrol. he had 5 bowel movements overnight and was still watery and diarrhea in nature. Continue monitoring patient's symptoms. He is still on isolation precautions. (3) Atrial fibrillation: Qualifiers: Atrial fibrillation type: unspecified chronic Qualified Code(s): I48.20 - Chronic atrial fibrillation, unspecified Code(s): I48.91 - Unspecified atrial fibrillation Status: Acute Assessment and Plan: Chronic atrial fibrillation on Eliquis and rate is well controlled. Will continue home meds. (4) Salmonella infection: Code(s): A02.9 - Salmonella infection, unspecified Status: Acute Assessment and Plan: patient was diagnosed with a salmonella infection and started on IV ceftriaxone on 11/17/2019 due to his continued profuse diarrhea. ceftriaxone was discontinued upon discharge which would have been about 7 days of treatment. (5) Chronic kidney disease, stage 3: Code(s): N18.3 - Chronic kidney disease, stage 3 (moderate) Status: Acute Assessment and Plan: Creatinine is at baseline. Creatinine this morning was 0.9. Stable. Will discontinue IV fluids at this time as he appears to be euvolemic. continue monitoring renal function and electrolytes. (6) Diastolic dysfunction: Code(s): I51.89 - Other ill-defined heart diseases Status: Acute Assessment and Plan: History of diastolic dysfunction on torsemide, spironolactone, and potassium supplementation. Will restart these medications and discontinue IV fluids at this time. His CT abdomen showed he does have mild to moderate pleural effusion
[2019-12-01 12:26] LABS: Glucose Point of Care 336 (65-105)
[2019-12-01 14:23] VITALS: BP 143/60; PULSE 67; RESP 18; TEMP 37.3; O2SAT 100
[2019-12-01 16:40] LABS: Glucose Point of Care 372 (65-105)
[2019-12-01 20:00] LABS: Glucose Point of Care 408 (65-105)
[2019-12-01] MEDS: INSULIN ASPART (*BKC) 100 UNITS/ML 8 UNITS SUB-Q (21:11)
[2019-12-01 21:52] VITALS: BP 132/59; PULSE 75; RESP 20; TEMP 36.1; O2SAT 97
[2019-12-02] MEDS: VANCOMYCIN ORAL 125 MG/2.5 ML SYRUP PO ×4 (00:36→18:07)
[2019-12-02 00:39] LABS: Glucose Point of Care 397 (65-105)
[2019-12-02] MEDS: INSULIN ASPART (*BKC) 100 UNITS/ML 8 UNITS SUB-Q (01:18)
[2019-12-02 05:55] LABS: Basophils Absolute Auto 0.1 K/mm3 (0.0-0.1); Basophils Percent Auto 0.9 % (0.2-1.2); Eosinophils Absolute Auto 0.1 K/mm3 (0-0.3); Eosinophils Percent Auto 1.6 % (0-4.4); Hematocrit 37.1 % (42.0-52.0); Hemoglobin 12.1 g/dL (14.0-18.0); Immature Granulocyte Absolute 0.02 K/mm3 (0.00-0.031); Immature Granulocyte Percent A 0.3 % (0-0.5); Lymphocytes Absolute Auto 1.07 K/mm3 (0.9-3.2); Lymphocytes Percent Auto 16.8 % (18.3-44.2); Mean Corpuscular HGB Conc 32.6 g/dl (32-36); Mean Corpuscular Hemoglobin 28.5 pg (26-34); Mean Corpuscular Volume 87.3 fl (80-100); Mean Platelet Volume 8.9 fl (7.4-10.4); Monocytes Absolute Auto 0.6 K/mm3 (0.1-0.6); Monocytes Percent Auto 9.3 % (2.6-8.5); Neutrophils Absolute Auto 4.5 K/mm3 (1.3-6.7); Neutrophils Percent Auto 71.1 % (45.5-73.1); Platelet Count Result 194 k/mm3 (150-375); Red Blood Count 4.25 M/mm3 (4.6-6.20); Red Cell Distribution Width 14.4 % (11.5-14.5); White Blood Count 6.4 K/mm3 (4.5-10.0)
[2019-12-02 06:00] VITALS: BP 155/65; PULSE 75; RESP 18; TEMP 36.1; O2SAT 96
[2019-12-02 06:08] LABS: Anion Gap 7 mmol/L (8-16); Blood Urea Nitrogen 20 mg/dL (9-20); Calcium 8.9 mg/dL (8.4-10.2); Carbon Dioxide 30 mmol/L (22-30); Chloride 98 mmol/L (98-107); Estimated CRCL calculation 113 ml/min; Estimated Glomerular Filt Rate > 60; Glucose 362 mg/dL (75-110); Potassium 4.7 mmol/L (3.4-5.0); Sodium 135 mmol/L (137-145)
[2019-12-02] MEDS: INSULIN ASPART (*BKC) 100 UNITS/ML SUB-Q ×3 (07:42→17:14)
[2019-12-02] MEDS: INSULIN GLARGINE (*BKC) 100 UNITS/ML 55 UNITS SUB-Q (07:44)
[2019-12-02 07:54] VITALS: PULSE 75
[2019-12-02] MEDS: FERROUS SULFATE 324 MG TABLET PO ×2 (07:55→17:05)
[2019-12-02 08:00] VITALS: PULSE 72; RESP 18; O2SAT 96
[2019-12-02 08:00] LABS: Glucose Point of Care 389 (65-105)
[2019-12-02 09:22] VITALS: PULSE 72
[2019-12-02] MEDS: SPIRONOLACTONE 25 MG TABLET PO (09:22)
[2019-12-02] MEDS: calcium polycarbophiL 625 MG TABLET PO ×2 (09:22→17:05)
[2019-12-02] MEDS: GABAPENTIN 400 MG CAPSULE 800 MG PO ×3 (09:22→17:05)
[2019-12-02] MEDS: APIXABAN 5 MG TABLET PO ×2 (09:22→20:28)
[2019-12-02] MEDS: POTASSIUM CHLORIDE 20 MEQ TABLET.ER PO ×3 (09:22→17:06)
[2019-12-02] MEDS: DIGOXIN TAB 125 MCG TABLET PO (09:22)
[2019-12-02] MEDS: SACCHAROMYCES BOULARDII 250 MG CAPSULE PO ×2 (09:23→17:06)
[2019-12-02] MEDS: TORSEMIDE 20 MG TABLET PO (09:23)
[2019-12-02] MEDS: INSULIN GLARGINE (*BKC) 100 UNITS/ML 10 UNITS SUB-Q (09:24)
--- NOTE | 2019-12-02 13:10 | PM.IMPN ---
Progress Note: A&P Assessment and Plan (1) Weakness: Code(s): R53.1 - Weakness Status: Acute Assessment and Plan: could be secondary to dehydration, viral infection, continued infection from C diff/Salmonella he is receiving IV fluid hydration Since arrival but he appears euvolemic at this time. Will discontinue IV fluids. Ordered some testing which included ferritin which was normal, LDH which was normal and CRP was elevated at 7.2 which could be from his infectious colitis otherwise no acute new underlying infection, no UTI, no pneumonia noted, no acute abdominal changes from prior admission Lactic acid was normal upon arrival. vital signs are otherwise stable, afebrile, non tachycardic, stable blood pressure, normal respiratory rate and oxygenation. leukocytosis was improved from arrival and is now normal with no elevation to his neutrophil count. Physical and occupational therapy were ordered for further evaluation on the patient's weakness. At this time I feel the patient is in need of placement into a acute care rehab verses a SNF for further evaluation and treatment in secondary to his weakness and not having much help at home. Continue monitoring patient's labs and symptoms. (2) C. difficile colitis: Code(s): A04.72 - Enterocolitis due to Clostridium difficile, not specified as recurrent Status: Inactive Assessment and Plan: Continued him on Dificid and vancomycin orally for treatment of C diff. patient states after discharge he continued to have about 2-5 bowel movements per day. He is still on isolation but if he does not have diarrhea for 48 hours isolation can be discontinued. He was started on Dificid on 11/15/2019 (Day #15). Will discontinue Dificid treatment (11/30/2019) He was started on Oral Vancomycin on 11/19/2019 (Day #13). After talking with my attending provider he recommended continuing vancomycin for 10 more days for continued treatment. Will add more bulking agents to his regiment which include FiberCon, banatrol. he had 2 bowel movements this morning and it was not diarrhea, more formed in nature. Continue monitoring patient's symptoms. He is still on isolation precautions. (3) Atrial fibrillation: Qualifiers: Atrial fibrillation type: unspecified chronic Qualified Code(s): I48.20 - Chronic atrial fibrillation, unspecified Code(s): I48.91 - Unspecified atrial fibrillation Status: Acute Assessment and Plan: Chronic atrial fibrillation on Eliquis and rate is well controlled. Will continue home meds. (4) Salmonella infection: Code(s): A02.9 - Salmonella infection, unspecified Status: Acute Assessment and Plan: patient was diagnosed with a salmonella infection and started on IV ceftriaxone on 11/17/2019 due to his continued profuse diarrhea. ceftriaxone was discontinued upon discharge which would have been about 7 days of treatment. (5) Chronic kidney disease, stage 3: Code(s): N18.3 - Chronic kidney disease, stage 3 (moderate) Status: Acute Assessment and Plan: Creatinine is at baseline. Creatinine this morning was 0.9. Stable. Will discontinue IV fluids at this time as he appears to be euvolemic. continue monitoring renal function and electrolytes. (6) Diastolic dysfunction: Code(s): I51.89 - Other ill-defined heart diseases Status: Acute Assessment and Plan: History of diastolic dysfunction on torsemide, spironolactone, and potassium supplementation. Will restart these medications and discontinue IV fluids at this time. His CT abdomen showed he does have mild to moderate pleural effusion
[2019-12-02 14:00] VITALS: BP 146/67; PULSE 65; RESP 20; TEMP 36.9; O2SAT 98
[2019-12-02 16:43] LABS: Glucose Point of Care 365 (65-105)
[2019-12-02 17:27] LABS: Glucose Point of Care 374 (65-105)
[2019-12-02] MEDS: INSULIN GLARGINE (*BKC) 100 UNITS/ML 65 UNITS SUB-Q (20:28)
[2019-12-02 20:38] LABS: Glucose Point of Care 411 (65-105)
[2019-12-02] MEDS: INSULIN ASPART (*BKC) 100 UNITS/ML 12 UNITS SUB-Q (21:19)
[2019-12-02 21:23] VITALS: BP 144/50; PULSE 76; RESP 14; TEMP 36.2; O2SAT 94
[2019-12-03 02:24] LABS: Glucose Point of Care 361 (65-105)
[2019-12-03] MEDS: INSULIN ASPART (*BKC) 100 UNITS/ML 10 UNITS SUB-Q (02:26)
[2019-12-03 04:46] VITALS: BP 157/69; PULSE 66; RESP 18; TEMP 36.1; O2SAT 94
[2019-12-03 06:15] LABS: Anion Gap 8 mmol/L (8-16); Blood Urea Nitrogen 19 mg/dL (9-20); Calcium 9.2 mg/dL (8.4-10.2); Carbon Dioxide 29 mmol/L (22-30); Chloride 97 mmol/L (98-107); Estimated CRCL calculation 126 ml/min; Estimated Glomerular Filt Rate > 60; Glucose 336 mg/dL (75-110); Potassium 4.6 mmol/L (3.4-5.0); Sodium 134 mmol/L (137-145)
[2019-12-03 08:00] LABS: Glucose Point of Care 323 (65-105)
[2019-12-03 08:10] VITALS: PULSE 68
[2019-12-03] MEDS: APIXABAN 5 MG TABLET PO (08:10)
[2019-12-03] MEDS: calcium polycarbophiL 625 MG TABLET PO (08:10)
[2019-12-03] MEDS: POTASSIUM CHLORIDE 20 MEQ TABLET.ER PO ×2 (08:10→12:10)
[2019-12-03 08:11] VITALS: PULSE 68
[2019-12-03] MEDS: SACCHAROMYCES BOULARDII 250 MG CAPSULE PO (08:11)
[2019-12-03] MEDS: GABAPENTIN 400 MG CAPSULE 800 MG PO ×2 (08:11→12:10)
[2019-12-03] MEDS: FERROUS SULFATE 324 MG TABLET PO (08:11)
[2019-12-03] MEDS: SPIRONOLACTONE 25 MG TABLET PO (08:11)
[2019-12-03] MEDS: DIGOXIN TAB 125 MCG TABLET PO (08:11)
[2019-12-03] MEDS: INSULIN ASPART (*BKC) 100 UNITS/ML SUB-Q ×2 (08:13→12:07)
[2019-12-03] MEDS: INSULIN GLARGINE (*BKC) 100 UNITS/ML 65 UNITS SUB-Q (08:14)
[2019-12-03 08:18] VITALS: PULSE 68; RESP 18; O2SAT 94
[2019-12-03] MEDS: TORSEMIDE 20 MG TABLET PO (08:18)
--- NOTE | 2019-12-03 10:38 | P.DS_ITS ---
DS: Admitting Diagnosis Admitting Diagnosis Admitting Diagnosis: Weakness DS: Discharge Diagnosis Discharge Diagnosis (1) Weakness: Code(s): R53.1 - Weakness Status: Acute Assessment and Plan: could be secondary to dehydration, viral infection, continued infection from C diff/Salmonella * he is receiving IV fluid hydration Since arrival but he appears euvolemic at this time. Will discontinue IV fluids. * Ordered some testing which included ferritin which was normal, LDH which was normal and CRP was elevated at 7.2 which could be from his infectious colitis * otherwise no acute new underlying infection, no UTI, no pneumonia noted, no acute abdominal changes from prior admission * Lactic acid was normal upon arrival. * vital signs are otherwise stable, afebrile, non tachycardic, stable blood pressure, normal respiratory rate and oxygenation. * leukocytosis was improved from arrival and is now normal with no elevation to his neutrophil count. * Physical and occupational therapy were ordered for further evaluation on the patient's weakness. * He was accepted into [facility] facility for continued therapy and wound management (2) C. difficile colitis: Code(s): A04.72 - Enterocolitis due to Clostridium difficile, not specified as recurrent Status: Inactive Assessment and Plan: Continued him on Dificid and vancomycin orally for treatment of C diff. patient states after discharge he continued to have about 2-5 bowel movements per day. * He was started on Dificid on 11/15/2019 (Day #15). Will discontinue Dificid treatment (11/30/2019) * He was started on Oral Vancomycin on 11/19/2019 (Day #14). After talking with my attending provider he recommended continuing vancomycin for 7 more days for continued treatment. * continue bulking agents to his regiment which include FiberCon, banatrol. * he has not had a watery diarrhea bowel movement in the last 2 days so he h as taken off isolation precautions at this time. * shiga toxin and E coli were negative for stool cultures * Still pending his stool cultures from 11/29/2019, Campylobacter and Salmonella or are pending. C diff was not retested and will continue treatment for another week. (3) Atrial fibrillation: Qualifiers: Atrial fibrillation type: unspecified chronic Qualified Code(s): I48.20 - Chronic atrial fibrillation, unspecified Code(s): I48.91 - Unspecified atrial fibrillation Status: Acute Assessment and Plan: Chronic atrial fibrillation on Eliquis and rate is well controlled. Will continue home meds. (4) Salmonella infection: Code(s): A02.9 - Salmonella infection, unspecified Status: Acute Assessment and Plan: patient was diagnosed with a salmonella infection and started on IV ceftriaxone on 11/17/2019 due to his continued profuse diarrhea. ceftriaxone was discontinu ed upon discharge which would have been about 7 days of treatment. (5) Chronic kidney disease, stage 3: Code(s): N18.3 - Chronic kidney disease, stage 3 (moderate) Status: Acute Assessment and Plan: Creatinine is at baseline. * Creatinine this morning was 0.9. Stable. * Will discontinue IV fluids at this time as he appears to be euvolemic. (6) Diastolic dysfunction: Code(s):
--- NOTE | 2019-12-03 10:38 | PM.DS ---
DS: Admitting Diagnosis Admitting Diagnosis Admitting Diagnosis: Weakness DS: Discharge Diagnosis Discharge Diagnosis (1) Weakness: Code(s): R53.1 - Weakness Status: Acute Assessment and Plan: could be secondary to dehydration, viral infection, continued infection from C diff/Salmonella he is receiving IV fluid hydration Since arrival but he appears euvolemic at this time. Will discontinue IV fluids. Ordered some testing which included ferritin which was normal, LDH which was normal and CRP was elevated at 7.2 which could be from his infectious colitis otherwise no acute new underlying infection, no UTI, no pneumonia noted, no acute abdominal changes from prior admission Lactic acid was normal upon arrival. vital signs are otherwise stable, afebrile, non tachycardic, stable blood pressure, normal respiratory rate and oxygenation. leukocytosis was improved from arrival and is now normal with no elevation to his neutrophil count. Physical and occupational therapy were ordered for further evaluation on the patient's weakness. He was accepted into [facility] facility for continued therapy and wound management (2) C. difficile colitis: Code(s): A04.72 - Enterocolitis due to Clostridium difficile, not specified as recurrent Status: Inactive Assessment and Plan: Continued him on Dificid and vancomycin orally for treatment of C diff. patient states after discharge he continued to have about 2-5 bowel movements per day. He was started on Dificid on 11/15/2019 (Day #15). Will discontinue Dificid treatment (11/30/2019) He was started on Oral Vancomycin on 11/19/2019 (Day #14). After talking with my attending provider he recommended continuing vancomycin for 7 more days for continued treatment. continue bulking agents to his regiment which include FiberCon, banatrol. he has not had a watery diarrhea bowel movement in the last 2 days so he has taken off isolation precautions at this time. shiga toxin and E coli were negative for stool cultures Still pending his stool cultures from 11/29/2019, Campylobacter and Salmonella or are pending. C diff was not retested and will continue treatment for another week. (3) Atrial fibrillation: Qualifiers: Atrial fibrillation type: unspecified chronic Qualified Code(s): I48.20 - Chronic atrial fibrillation, unspecified Code(s): I48.91 - Unspecified atrial fibrillation Status: Acute Assessment and Plan: Chronic atrial fibrillation on Eliquis and rate is well controlled. Will continue home meds. (4) Salmonella infection: Code(s): A02.9 - Salmonella infection, unspecified Status: Acute Assessment and Plan: patient was diagnosed with a salmonella infection and started on IV ceftriaxone on 11/17/2019 due to his continued profuse diarrhea. ceftriaxone was discontinued upon discharge which would have been about 7 days of treatment. (5) Chronic kidney disease, stage 3: Code(s): N18.3 - Chronic kidney disease, stage 3 (moderate) Status: Acute Assessment and Plan: Creatinine is at baseline. Creatinine this morning was 0.9. Stable. Will discontinue IV fluids at this time as he appears to be euvolemic. (6) Diastolic dysfunction: Code(s): I51.89 - Other ill-defined heart diseases Status: Acute Assessment and Plan: History of diastolic dysfunction on torsemide, spironolactone, and potassium supplementation. Will restart these medications and discontinue IV fluids at this time. His CT abdomen showed he does have mild to moderate pleural effusion which could be secondary to some fluid overload.
[2019-12-03 11:40] LABS: Glucose Point of Care 370 (65-105)
--- NOTE | 2019-12-07 11:16 | PC.NURSE ---
Campylobacter is negative. Blood cx is negative
== END 2019-12-03 14:05 | DRG 372 ==
LOC: ANHED 21:12 → ANH3MED 11-29 00:39
PROVIDERS: Physician Assistant; Admitting Provider Family Medicine; Emergency Provider Emergency Medicine; PCP Internal Medicine; Visit Provider Internal Medicine
DX: A04.72 Enterocolitis due to Clostridium difficile, not specified as recurrent (principal); I48.20 Chronic atrial fibrillation, unspecified; Z68.43 Body mass index [BMI] 50.0-59.9, adult; A02.0 Salmonella enteritis; E86.0 Dehydration; Z11.59 Encounter for screening for other viral diseases; E11.22 Type 2 diabetes mellitus with diabetic chronic kidney disease; N18.3 Chronic kidney disease, stage 3 (moderate); G47.33 Obstructive sleep apnea (adult) (pediatric); E78.5 Hyperlipidemia, unspecified; E11.42 Type 2 diabetes mellitus with diabetic polyneuropathy; E11.21 Type 2 diabetes mellitus with diabetic nephropathy; Z79.01 Long term (current) use of anticoagulants; Z91.19 Patient's noncompliance with other medical treatment and regimen; Z89.511 Acquired absence of right leg below knee; Z89.612 Acquired absence of left leg above knee; E66.9 Obesity, unspecified
CPT/HCPCS: 36415; 71045; 74177; 80048; 80053; 81001; 82728; 83605; 83615; 83735; 85025; 86140; 87040; 87045; 87046; 87427; 87635; 93005; 96361; 96365; 96374; 96375; 97110; 97161; 97166; 97530; 99285; A9270; C9803; G0378; J1815; J1885; J3475; J7030; Q9967; U0003

== ENCOUNTER → 2020-08-26 02:14 | Outpatient (CLI) | payer MEDICARE, OTHER, SELFPAY ==
[2020-08-26 19:23] LABS: SARS-CoV-2 RNA PCR Negative
== END ==
PROVIDERS: PCP Internal Medicine; Visit Provider Internal Medicine Gastroenterology
DX: Z01.812 Encounter for preprocedural laboratory examination (principal); Z20.822 Contact with and (suspected) exposure to COVID-19
CPT/HCPCS: C9803; U0003; U0005

== ENCOUNTER 2020-08-28 13:07 | Observation (INO) | payer MEDICARE, OTHER, SELFPAY ==
[2020-08-28 10:30] VITALS: BP 122/63; PULSE 71; RESP 20; TEMP 36.3; O2SAT 99
--- NOTE | 2020-08-28 10:30 | ADMGEN ---
This patient, Lester Nguyễn, was admitted to Medical Room 241-01. Patient/family oriented to hospital policies and general routines including ID bracelet, bed and alarms, visiting hours, pain management, procedures, bathroom and other care routines, personal items, smoking policy, room service/diet, and visiting hours. Information on how to activate the Rapid Response Team has been discussed. Patient/Family are encouraged to report perceived risks to care and to ask questions if they do not understand what they are told or what they should do.
[2020-08-28 13:03] LABS: Hematocrit 41.3 % (42.0-52.0); Hemoglobin 13.2 g/dL (14.0-18.0)
[2020-08-28] MEDS: PEG (High)/E-LYTE SOLN 4,000 ML BTL 4000 ML PO (13:31)
[2020-08-28] MEDS: BISACODYL 5 MG TABLET EC 10 MG PO (13:31)
--- NOTE | 2020-08-28 13:33 | PM.IMHP ---
H&P: HPI History of Present Illness Date/Time: 08/28/20 13:33 this is a 60-year-old male patient who had a colonoscopy approximately 9 years ago. He stated that he had some polyps removed. The patient stated that he has chronic diarrhea and has tried several different medications. He has had a history of C diff in the past but stated that his primary care doctor ordered a C diff stool approximately month ago and he did not have C diff. When I asked how he times a day he had diarrhea he stated that he has loose stools about 2 to 3 times a day. However when he tries to perform any activity then his stool slips out of him. He has had no fever chills. The patient stated that he had COVID 19 back in February and he had severe diarrhea at that time. The patient stated about a week ago he had bright red bloody stool and he is on Eliquis for AFib. The patient was supposed to have a colonoscopy approximately 2 years ago but did not receive it due to his surgeries and then COVID him. The patient is unable to do the prep at home for colonoscopy. 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 The left above the knee and the right [id number]. He does have prosthesis. However the right [id number] amputation has a scab on it from the sleeve for the prosthesis. The patient stated that he would not be able to do the prep at home because he has home by himself and that most the time he sleeps in his wheelchair. He felt that he would not be able to get out of the wheelchair to the toilet in time to make it to the toilet with the preparation. Therefore the patient was a direct admit for colon prep for colonoscopy. Patient has not had any Eliquis since this past Tuesday. Dr. Goss is consulted has seen the patient. The patient is being admitted to observation status on the date of service of 08/28/2020. Chief Complaint: gi /colonoscopy Review of Systems Review of Systems: All systems reviewed & are unremarkable except as noted in HPI and below Constitutional: Constitutional: Reports as per HPI and Reports no additional constitutional complaints Eyes: Eyes: Reports as per HPI and Reports no additional eye complaints ENT: Reports system reviewed and no additional complaints, except as documented and Reports Normal hearing present Cardiovascular: Cardiovascular: Reports no additional cardiovascular complaints Respiratory: Respiratory: Reports no additional respiratory complaints and Reports no additional respiratory complaints Gastrointestinal: Gastrointestinal: Reports as per HPI and Reports no additional gastrointestinal complaints Musculoskeletal: Musculoskeletal: Reports no additional musculoskeletal complaints Integumentary/Breasts: Skin/Breast: Reports system reviewed and no additional complaints, except as docu and Reports as per HPI Neurologic: Reports system reviewed and no additional complaints, except as documented, Reports as per HPI and Reports Normal hearing present Psychiatric: Psychiatric: Reports no additional psychiatric complaints and Reports as per HPI Endocrine: Endocrine: Reports no additional endocrine complaints Hematologic/Lymphatic: Hematologic/Lymphatic: Reports no additional hematologic/lymphatic complaints Allergic/Immunologic: Allergic/Immunologic: Reports no additional allergic/immunologic complaints [facility] Past Medical History Medical History (Updated 08/28/20 @ 13:54 by Erika Zamarripa NP) Atrial fibrillation On chronic anticoagulation with Eliquis C. difficile colitis Chronic kidney disease, stage 3 Diabetes mellitus type 2 in obese Diabetic nephropathy Hands Diabetic peripheral neuropathy Diastolic dysfunction Last echocardiogram March 2018 demonstrated normal EF of 65-70 with moderate LVH and severe left atrial enlargement HTN (hypertension), malignant Hyperlipidemia Obstructive sleep apnea treated with BiPAP patient is noncompliant with his BiPAP Peripheral vascular diseas
[2020-08-28 14:58] LABS: Add Urine Microscopic? YES; Appearance Urine Clear (Clear); Bilirubin Urine Negative (Negative); Blood Urine Negative (Negative); Color Urine Straw (Yellow); Glucose Urine UA 3+ mg/dL (Negative); Ketones Urine Negative (Negative); Leukocyte Esterase Ur Negative LEU/UL (Negative); Nitrate Urine Negative (Negative); Protein Urine Negative (Negative); RBC Urine 0-2 /hpf (0-2); Specific Grav Ur 1.016 (1.001-1.035); Urobilinogen Urine Negative mg/dL (<2.0); WBC Urine 0-3 /hpf
[2020-08-28 16:00] VITALS: BP 160/59; PULSE 77; RESP 20; TEMP 36.2; O2SAT 98
--- NOTE | 2020-08-28 16:06 | WPDGICN ---
Assessment and Plan Assessment and plan (1) Diarrhea: Qualifiers: Diarrhea type: unspecified type Qualified Code(s): R19.7 - Diarrhea, unspecified Code(s): R19.7 - Diarrhea, unspecified Status: Acute Assessment and Plan: he was admitted to hospital in order to get assistance from staff for his bowel prep today, will do colonoscopy to assess if colitis tomorrow, also random biopsies of colon this is affecting his QOL will repeat stool samples again (previously had c diff and salmonella) denies fever (2) Fecal incontinence: Qualifiers: Fecal incontinence type: unspecified Qualified Code(s): R15.9 - Full incontinence of feces Code(s): R15.9 - Full incontinence of feces Status: Acute (3) Diabetes mellitus type 2 in obese: Code(s): E11.69 - Type 2 diabetes mellitus with other specified complication; E66.9 - Obesity, unspecified Status: Acute Assessment and Plan: on medication, controlled (4) Atrial fibrillation: Qualifiers: Atrial fibrillation type: unspecified Qualified Code(s): I48.91 - Unspecified atrial fibrillation Code(s): I48.91 - Unspecified atrial fibrillation Status: Acute GI Consult Note Consult date/time: 08/28/20 16:06 Reason for consult: diarrhea HPI: Lester Nguyễn is a 60 year old male with history of DM, Afib (on eliquis), iron deficiency anemia, neuropathy, right BKA, Left AKA, cholecystectomy with previous C diff and Salmonella last year but repeat stool studies since then negative for more infection. He came to our office recently because loose stools few times a day most days of the week with bloating and abdominal discomfort which is affecting his QOL, he says that sometimes after farting will have accidents then have to change clothes. He is wheel chair bound and we arranged to admit to the hospital in order to assist him with bowel prep (insurance approved admission). Last colonoscopy was 10 years ago. He tried xifaxan and questran without relief. Review of Systems Constitutional: Constitutional: Denies chills Eyes: Eyes: Reports no additional eye complaints ENT: Reports Normal hearing present Cardiovascular: Cardiovascular: Denies chest pain Respiratory: Respiratory: Denies dyspnea Gastrointestinal: Gastrointestinal: Reports diarrhea Genitourinary: Genitourinary: Denies dysuria Musculoskeletal: Musculoskeletal: Denies neck pain Integumentary/Breasts: Skin/Breast: Denies dry skin Neurologic: Reports system reviewed and no additional complaints, except as documented Psychiatric: Psychiatric: Reports no additional psychiatric complaints [facility] Past Medical History Medical History (Updated 08/28/20 @ 13:54 by Erika Zamarripa NP) Atrial fibrillation On chronic anticoagulation with Eliquis C. difficile colitis Chronic kidney disease, stage 3 Diabetes mellitus type 2 in obese Diabetic nephropathy Hands Diabetic peripheral neuropathy Diastolic dysfunction Last echocardiogram March 2018 demonstrated normal EF of 65-70 with moderate LVH and severe left atrial enlargement HTN (hypertension), malignant Hyperlipidemia Obstructive sleep apnea treated with BiPAP patient is noncompliant with his BiPAP Peripheral vascular disease Surgical History Surgical History (Updated 08/28/20 @ 13:38 by Erika Zamarripa NP) History of appendectomy History of bilateral carpal tunnel release History of left above knee amputation History of right below knee amputation History of tonsillectomy and adenoidectomy Family History Family History (Updated 08/28/20 @ 13:42 by Erika Zamarripa NP) Sibling Lung cancer Sister Hypertension Brain cancer Father Diabetes mellitus Coronary artery disease Hypertension Mother Acute myocardial infarction Other Family history of arthritis Social History Social History (Updated 08/28/20 @ 13:46 by Erika Zamarripa
[2020-08-28 16:27] LABS: Glucose Point of Care 288 (65-105)
[2020-08-28] MEDS: MAGNESIUM CITRATE 300 ML BTL PO (16:34)
[2020-08-28] MEDS: INSULIN ASPART (*BKC) 100 UNITS/ML SUB-Q (16:34)
[2020-08-28] MEDS: PREGABALIN (*CRX) 50 MG CAPSULE 100 MG PO (16:35)
--- NOTE | 2020-08-28 17:41 | WPDANESEPP ---
Anes - Eval Pre Procedure Procedure: Operation Date: 08/29/20 14:15 Proposed Procedures p Colonoscopy - Lisandro Gonzalez MD Date/Time: 08/28/20 17:41 Pre Op Diagnosis: Diarrhea Patient Data Age: 60 Gender: M Height: Weight: Last Vital Signs Temp 97.1 F L 08/28/20 16:00 Pulse 77 08/28/20 16:00 Resp 20 08/28/20 16:00 BP 160/59 H 08/28/20 16:00 Pulse Ox 98 08/28/20 16:00 Allergies Allergy/AdvReac Type Severity Reaction Status Date / Time meperidine AdvReac Mild Nausea Verified 08/28/20 11:54 Home Medications Medication Instructions Recorded Confirmed Type apixaban 5 mg tablet 5 mg PO BID 05/14/19 08/28/20 History carvedilol phosphate 80 mg 40 mg PO DAILY 05/14/19 08/28/20 History capsule,[id number] multiphase digoxin 250 mcg (0.25 mg) tablet 125 mcg PO DAILY 05/14/19 08/28/20 History insulin regular hum U-500 conc See Rx Instructions .ROUTE .COMPLEX 05/14/19 08/28/20 History Livalo 4 mg PO DAILY 08/12/19 08/28/20 History losartan 50 mg PO DAILY 08/12/19 08/28/20 History spironolactone 25 mg PO DAILY 08/12/19 08/28/20 History torsemide 20 mg PO QAM 08/12/19 08/28/20 History miconazole nitrate [Aloe [place] 1 applic TOPICAL Q12HR #141 gm 12/03/19 08/28/20 Rx Antifungal (micon)] potassium chloride 20 mEq 60 meq PO DAILY tablet 07/31/20 08/28/20 History tablet,extended release(part/cryst) pregabalin 100 mg capsule 100 mg PO TID 07/31/20 08/28/20 History insulin glargine U-300 conc 180 unit SUBCUT DAILY 08/28/20 08/28/20 History [Toujeo SoloStar U-300 Insulin] Laboratory Tests 08/28/20 08/28/20 08/28/20 12:48 12:54 14:03 Hgb 13.2 g/dL L g/dL (14.0-18.0) Hct 41.3 % L % (42.0-52.0) POC Capillary Glucose Magnesium 2.0 mg/dL mg/dL (1.6-2.3) Urine Color Straw (Yellow) Urine Appearance Clear (Clear) Urine pH 6.0 (5.0-9.0) Ur Specific [place] 1.016 (1.001-1.035) Urine Protein Negative mg/dL mg/dL (Negative) Urine Glucose (UA) 3+ mg/dL H mg/dL (Negative) Urine Ketones Negative mg/dL mg/dL (Negative) Ur Blood (Man) Negative (Negative) Urine Nitrate Negative (Negative) Urine Bilirubin Negative (Negative) Urine Urobilinogen Negative mg/dL mg/dL (<2.0) Leukocyte Esterase Rfl Negative LIANNA/UL LIANNA/UL (Negative) Urine RBC 0-2 /hpf /hpf (0-2) Urine WBC 0-3 /hpf /hpf 08/28/20 16:22 Hgb Hct POC Capillary Glucose 288 mg/dl H mg/dl (65-105) Magnesium Urine Color Urine Appearance Urine pH Ur Specific [place] Urine Protein Urine Glucose (UA) Urine Ketones Ur Blood (Man) Urine Nitrate Urine Bilirubin Urine Urobilinogen Leukocyte Esterase Rfl Urine RBC Urine WBC Patient hx anesthesia problems: none Family hx anesthesia problems: none PMFSH Past Medical History Medical History Acute renal failure superimposed on stage 3 chronic kidney disease The patient had temporary dialysis x3 at 1 time Acute worsening of stage 3 chronic kidney disease Atrial fibrillation On chronic anticoagulation with Eliquis Atrial fibrillation C. difficile colitis C. difficile colitis Chronic kidney disease, stage 3 Diabetes mellitus type 2 in obese Diabetes mellitus with hyperglycemia Diabetic nephropathy Hands Diabetic peripheral neuropathy Diastolic dysfunction Last echocardiogram March 2018 demonstrated normal EF of 65-70 with moderate LVH and severe left atrial enlargement GI bleed HTN (hypertension), malignant Hyperlipidemia Morbid obesity Obstructive sleep apnea treated with BiPAP patient is noncompliant with his BiPAP Peripheral vascular disease Surgical History Surgical History (Revie
[2020-08-28 20:00] VITALS: BP 154/41; PULSE 70; RESP 18; TEMP 36.4; O2SAT 98
[2020-08-29] VITALS (12 sets, daily range): BP systolic 80–138; BP diastolic 32–83; PULSE 59–89; RESP 16–25; TEMP 35.8–36.7; O2SAT 92–99; BMI 73.0
[2020-08-29] MEDS: INSULIN ASPART (*BKC) 100 UNITS/ML SUB-Q (00:03)
[2020-08-29 00:07] LABS: Glucose Point of Care 228 (65-105)
[2020-08-29] MEDS: PREGABALIN (*CRX) 50 MG CAPSULE 100 MG PO ×4 (00:19→20:40)
[2020-08-29] MEDS: MAGNESIUM CITRATE 300 ML BTL PO (04:08)
[2020-08-29 05:41] LABS: Basophils Absolute Auto 0.1 K/mm3 (0.0-0.1); Basophils Percent Auto 0.8 % (0.2-1.2); Eosinophils Absolute Auto 0.2 K/mm3 (0-0.3); Eosinophils Percent Auto 2.3 % (0-4.4); Hematocrit 40.3 % (42.0-52.0); Hemoglobin 12.9 g/dL (14.0-18.0); Immature Granulocyte Absolute 0.05 K/mm3 (0.00-0.031); Immature Granulocyte Percent A 0.6 % (0-0.5); Lymphocytes Absolute Auto 2.14 K/mm3 (0.9-3.2); Lymphocytes Percent Auto 23.8 % (18.3-44.2); Mean Corpuscular Hemoglobin 27.3 pg (26-34); Mean Corpuscular Volume 85.2 fl (80-100); Mean Platelet Volume 9.5 fl (7.4-10.4); Monocytes Absolute Auto 0.9 K/mm3 (0.1-0.6); Monocytes Percent Auto 9.8 % (2.6-8.5); Neutrophils Absolute Auto 5.7 K/mm3 (1.3-6.7); Neutrophils Percent Auto 62.7 % (45.5-73.1); Platelet Count Result 143 k/mm3 (150-375); Red Blood Count 4.73 M/mm3 (4.6-6.20)
[2020-08-29 05:51] LABS: Hemoglobin A1C 8.5 % (<5.7)
[2020-08-29 05:57] LABS: Anion Gap 4 mmol/L (8-16); Blood Urea Nitrogen 25 mg/dL (9-20); Calcium 8.9 mg/dL (8.4-10.2); Carbon Dioxide 33 mmol/L (22-30); Chloride 101 mmol/L (98-107); Estimated CRCL calculation 97 ml/min; Estimated Glomerular Filt Rate > 60; Glucose 128 mg/dL (75-110); Magnesium 2.3 mg/dL (1.6-2.3); Sodium 138 mmol/L (137-145)
[2020-08-29 06:07] LABS: Glucose Point of Care 146 (65-105)
[2020-08-29] MEDS: DIGOXIN TAB 125 MCG TABLET PO (09:04)
[2020-08-29] MEDS: POTASSIUM CHLORIDE 20 MEQ TABLET.ER 60 MEQ PO (09:04)
[2020-08-29] MEDS: BISACODYL 5 MG TABLET EC 10 MG PO (09:04)
[2020-08-29 12:01] LABS: Glucose Point of Care 118 (65-105)
[2020-08-29] MEDS: LACTATED RINGERS 1,000 ML 150 ML IV CONT (12:25)
--- NOTE | 2020-08-29 12:34 | PM.IMPN ---
Progress Note: A&P Assessment and Plan (1) GI bleed: Code(s): K92.2 - Gastrointestinal hemorrhage, unspecified Status: Acute Assessment and Plan: x1 episode of lower bright red blood coming from his rectum about a week ago Last 9 years ago Unable to have colonoscopy approximately 2 years ago due to inability to bowel prep because of amputations, then COVID outbreak S/p GI prep for colonoscopy today, per Dr. Goss, recommendations apprecaited Hgb 12.9, monitor H/H Eliquis on hold for 2 days now (2) Diarrhea: Qualifiers: Diarrhea type: presumed infectious Qualified Code(s): R19.7 - Diarrhea, unspecified Code(s): R19.7 - Diarrhea, unspecified Status: Acute Assessment and Plan: Hx of cdiff and salmonella Recent cdiff and salmonella neg 1 month ago 2-3 loose stools daily Treatment as above (3) Hyperlipidemia: Code(s): E78.5 - Hyperlipidemia, unspecified Status: Acute Assessment and Plan: continue with livalo (4) Atrial fibrillation: Qualifiers: Atrial fibrillation type: unspecified Qualified Code(s): I48.91 - Unspecified atrial fibrillation Code(s): I48.91 - Unspecified atrial fibrillation Status: Acute Assessment and Plan: Continue with Coreg and digoxin Hold Eliquis Monitor (5) Diabetes mellitus type 2 in obese: Code(s): E11.69 - Type 2 diabetes mellitus with other specified complication; E66.9 - Obesity, unspecified Status: Acute Assessment and Plan: Uncontrolled Accu-Cheks AC and HS every 6 hours while he is NPO Hgb A1c 8.5 Monitor (6) Chronic kidney disease, stage 3: Code(s): N18.3 - Chronic kidney disease, stage 3 (moderate) Status: Acute Assessment and Plan: Cr 1.0 Avoid nephrotoxins Renally dose all meds Monitor (7) HTN (hypertension), malignant: Code(s): I10 - Essential (primary) hypertension Status: Chronic Assessment and Plan: Continue with Coreg Hold diuretics for now Monitor Subjective Date/time seen: 08/29/20 12:34 Pt seen and evaluated; labs; VS; diagnostic reports; and consult note reviewed; pt denies any new complaints Review of Systems Review of Systems: All systems reviewed & are unremarkable except as noted in HPI and below Exam Const: General: no acute distress, alert and awake Orientation/consciousness: patient oriented x3 HENMT: Head: normocephalic and atraumatic Ears: hearing grossly normal bilaterally and external ears normal Face and sinus: face symmetric Mouth: Yes Normal oral and palatal mucosa present Eyes: Pupils: Equal, round and reactive pupils present EOM: EOMs intact bilaterally Neck: Neck: full ROM, trachea midline and no JVD Thyroid: thyroid normal Chest: Chest palpation & inspection: normal inspection of the chest Resp: Effort & Inspection: normal respiratory effort Auscultation: clear to auscultation bilaterally Cardio: Jugular venous distension: no JVD Rate: regular rate Rhythm: regular rhythm Heart sounds: S1 normal heart sound present and S2 normal heart sound present GI: Inspection: normal to inspection GI Palp: Yes Soft to palpation Percussion: Yes normal to percussion Auscultation: normal bowel sounds : General: Yes no CVA tenderness Back/Spine/Pelvis: Back: no CVA tenderness Skin: General skin exam: normal color Rashes: no rashes Neuro: General: patient oriented x3 and CN's II-XI intact bilaterally Cranial nerves: Yes Equal, round and reactive pupils present Speech: normal speech Extrem: Other: RBKA; [place] Psych: Appearance: grossly normal Affect: normal affect Judgement: Good judgement present (Psych) Objective Data Vital Signs Vital Signs: Vital Signs - 24 hr 08/28/20 16:00 08/28/20 20:00 08/29/20 00:00 Temperature 36.2 C L 36.4 C 36.3 C L Pulse Rate 77 70 60 Respiratory Rate 20 18 16 Blood Pressure 160/59 H 154/41 H 132/56 L Pulse Oximetry 98 98 98 0
--- NOTE | 2020-08-29 12:54 | WPDANESEPPF ---
Anes - Initial Pre Proc Eval Procedure: Operation Date: 08/29/20 14:15 Proposed Procedures p Colonoscopy - Lisandro Gonzalez MD Date/Time: 08/29/20 12:54 Surgeon: Josephine Marie MD Pre Op Diagnosis: Diarrhea Patient Data Age: 60 Gender: M Height: 5 ft Weight: 169.7 kg Last Vital Signs Temp 36.7 C 08/29/20 12:18 Pulse 69 08/29/20 12:18 Resp 20 08/29/20 12:18 BP 137/69 08/29/20 12:18 Pulse Ox 96 08/29/20 12:18 Allergies Allergy/AdvReac Type Severity Reaction Status Date / Time meperidine AdvReac Mild Nausea Verified 08/29/20 12:16 Home Medications Medication Instructions Recorded Confirmed Type apixaban 5 mg tablet 5 mg PO BID 05/14/19 08/28/20 History carvedilol phosphate 80 mg 40 mg PO DAILY 05/14/19 08/28/20 History capsule,[id number] multiphase digoxin 250 mcg (0.25 mg) tablet 125 mcg PO DAILY 05/14/19 08/28/20 History insulin regular hum U-500 conc See Rx Instructions .ROUTE .COMPLEX 05/14/19 08/28/20 History Livalo 4 mg PO DAILY 08/12/19 08/28/20 History losartan 50 mg PO DAILY 08/12/19 08/28/20 History spironolactone 25 mg PO DAILY 08/12/19 08/28/20 History torsemide 20 mg PO QAM 08/12/19 08/28/20 History miconazole nitrate [Aloe [place] 1 applic TOPICAL Q12HR #141 gm 12/03/19 08/28/20 Rx Antifungal (micon)] potassium chloride 20 mEq 60 meq PO DAILY tablet 07/31/20 08/28/20 History tablet,extended release(part/cryst) pregabalin 100 mg capsule 100 mg PO TID 07/31/20 08/28/20 History insulin glargine U-300 conc 180 unit SUBCUT DAILY 08/28/20 08/28/20 History [Toujeo SoloStar U-300 Insulin] Laboratory Tests 08/28/20 08/28/20 08/28/20 12:48 12:54 14:03 WBC RBC Hgb 13.2 g/dL L g/dL (14.0-18.0) Hct 41.3 % L % (42.0-52.0) MCV MCH MCHC RDW Plt Count MPV Immature Gran % (Auto) Neut % (Auto) Lymph % (Auto) Page % (Auto) Eos % (Auto) Baso % (Auto) Lymph # (Auto) Page # (Auto) Eos # (Auto) Baso # (Auto) Abs Immat Gran (auto) Absolute Neuts (auto) Absolute Nucleated RBC Nucleated RBC % Sodium Potassium Chloride Carbon Dioxide Anion Gap BUN Creatinine Estim Creat Clear Calc Estimated GFR Glucose POC Capillary Glucose Hemoglobin A1c Calcium Magnesium 2.0 mg/dL mg/dL (1.6-2.3) Urine Color Straw (Yellow) Urine Appearance Clear (Clear) Urine pH 6.0 (5.0-9.0) Ur Specific [place] 1.016 (1.001-1.035) Urine Protein Negative mg/dL mg/dL (Negative) Urine Glucose (UA) 3+ mg/dL H mg/dL (Negative) Urine Ketones Negative mg/dL mg/dL (Negative) Ur Blood (Man) Negative (Negative) Urine Nitrate Negative (Negative) Urine Bilirubin Negative (Negative) Urine Urobilinogen Negative mg/dL mg/dL (<2.0) Leukocyte Esterase Rfl Negative LIANNA/UL LIANNA/UL (Negative) Urine RBC 0-2 /hpf /hpf (0-2) Urine WBC 0-3 /hpf /hpf 08/28/20 08/29/20 08/29/20 16:22 00:00 05:14 WBC RBC Hgb Hct MCV MCH MCHC RDW Plt Count MPV Immature Gran % (Auto) Neut % (Auto) Lymph % (Auto) Page % (Auto) Eos % (Auto) Baso % (Auto) Lymph # (Auto) Page # (Auto) Eos # (Auto) Baso # (Auto) Abs Immat Gran (auto) Absolute Tata
[2020-08-29 15:29] LABS: Glucose Point of Care 113 (65-105)
--- NOTE | 2020-08-29 17:59 | PC.NURSE ---
Spoke with patient re: home med clarification. Pt states he is unable to have anyone bring his medication from home.
[2020-08-29 18:21] LABS: Glucose Point of Care 181 (65-105)
[2020-08-29 21:00] LABS: Glucose Point of Care 203 (65-105)
[2020-08-30 01:30] VITALS: BP 132/79; PULSE 71; RESP 18; TEMP 36.3; O2SAT 97
[2020-08-30 04:00] VITALS: BP 134/50; PULSE 73; RESP 18; TEMP 36.1; O2SAT 97
[2020-08-30 08:10] VITALS: PULSE 71
[2020-08-30 08:11] VITALS: PULSE 71
[2020-08-30] MEDS: DIGOXIN TAB 125 MCG TABLET PO (08:11)
[2020-08-30] MEDS: POTASSIUM CHLORIDE 20 MEQ TABLET.ER 60 MEQ PO (08:12)
[2020-08-30] MEDS: PREGABALIN (*CRX) 50 MG CAPSULE 100 MG PO (08:13)
[2020-08-30 08:41] LABS: Glucose Point of Care 185 (65-105)
--- NOTE | 2020-08-30 14:03 | PM.DS ---
DS: Admitting Diagnosis Admitting Diagnosis Admitting Diagnosis: diarrhea DS: Discharge Diagnosis Discharge Diagnosis (1) GI bleed: Code(s): K92.2 - Gastrointestinal hemorrhage, unspecified Status: Acute Assessment and Plan: x1 episode of lower bright red blood coming from his rectum about a week ago Last 9 years ago Unable to have colonoscopy approximately 2 years ago due to inability to bowel prep because of amputations, then COVID outbreak S/p GI prep for colonoscopy today, per Dr. Goss, recommendations apprecaited Hgb 12.9, H/H stable Resume Eliquis (2) Diarrhea: Qualifiers: Diarrhea type: presumed infectious Qualified Code(s): R19.7 - Diarrhea, unspecified Code(s): R19.7 - Diarrhea, unspecified Status: Acute Assessment and Plan: Hx of cdiff and salmonella Recent cdiff and salmonella neg 1 month ago 2-3 loose stools daily Treatment as above (3) Hyperlipidemia: Code(s): E78.5 - Hyperlipidemia, unspecified Status: Acute Assessment and Plan: continue with livalo (4) Atrial fibrillation: Qualifiers: Atrial fibrillation type: unspecified Qualified Code(s): I48.91 - Unspecified atrial fibrillation Code(s): I48.91 - Unspecified atrial fibrillation Status: Acute Assessment and Plan: Continue with Coreg and digoxin Hold Eliquis Monitor (5) Diabetes mellitus type 2 in obese: Code(s): E11.69 - Type 2 diabetes mellitus with other specified complication; E66.9 - Obesity, unspecified Status: Acute Assessment and Plan: Uncontrolled Accu-Cheks AC and HS every 6 hours while he is NPO Hgb A1c 8.5 Monitor (6) Chronic kidney disease, stage 3: Code(s): N18.3 - Chronic kidney disease, stage 3 (moderate) Status: Acute Assessment and Plan: Cr 1.0 Avoid nephrotoxins Renally dose all meds Monitor (7) HTN (hypertension), malignant: Code(s): I10 - Essential (primary) hypertension Status: Chronic Assessment and Plan: Continue with Coreg Hold diuretics for now Monitor DS: Summary Hospital Course Hospital Course: 60 year old man who presented with 1 episode of lower bright red blood coming from his rectum for 1 week. The last reported colonoscopy 9 years ago. He was unable to bowel prep at home due to physical limitations and therefore has not had a recent colonoscopy. He was admitted overnight for GI prep for colonoscopy. He underwent colonoscopy on 08/29/20 and was found with a 4 mm polyp which was removed. Several biopsies were taken. The patient is stable and ready for discharge. Status at Discharge Functional status at discharge: wheelchair bound Time Spent with Patient Time attestation: Total time spent providing and/or coordinating discharge services: 50 Time spent: Greater than 30 minutes Exam Const: General: cooperative, healthy appearing, comfortable, no acute distress, well developed, alert, awake and Physically active Nutritional Appearance: overweight Orientation/consciousness: oriented to person, oriented to place, oriented to time and patient oriented x3 Limitations: no limitations HENMT: Head: normal to inspection, No palpable skull fracture present, normocephalic and atraumatic Ears: hearing grossly normal bilaterally and external ears normal General nose exam: Normal external nose present, Normal nares present and No nasal polyps present Face and sinus: face symmetric Mouth: Yes Normal oral and palatal mucosa present Eyes: General: appearance normal, both eyes and all related structures Alignment and Position: alignment normal Periorbital: periorbital findings normal Eyelids: eyelids normal Conjunctivae: conjunctivae normal Sclera: sclerae normal Cornea: corneas normal Pupils: Equal, round and reactive pupils present EOM: EOMs intact bilaterally Neck: Neck: normal visual inspection, full ROM, no lymphadenopathy, trachea midline, supple and no
== END 2020-08-30 10:50 | disposition home health service (06) ==
PROVIDERS: Internal Medicine Gastroenterology; Nurse Practitioner; Admitting Provider Hospitalist; PCP Internal Medicine; Visit Provider Family Medicine
PROC: 0DJD8ZZ Inspection of Lower Intestinal Tract, Via Natural or Artificial Opening Endoscopic (ICD-10-PCS; CPT 45378; principal; 2020-08-29 14:15)
DX: K63.5 Polyp of colon (principal); K64.8 Other hemorrhoids; K92.1 Melena; R19.7 Diarrhea, unspecified; R15.9 Full incontinence of feces; I12.9 Hypertensive chronic kidney disease with stage 1 through stage 4 chronic kidney disease, or unspecified chronic kidney disease; N18.30 Chronic kidney disease, stage 3 unspecified; E11.22 Type 2 diabetes mellitus with diabetic chronic kidney disease; E11.42 Type 2 diabetes mellitus with diabetic polyneuropathy; E11.51 Type 2 diabetes mellitus with diabetic peripheral angiopathy without gangrene; E78.5 Hyperlipidemia, unspecified; I48.91 Unspecified atrial fibrillation; Z79.01 Long term (current) use of anticoagulants; Z89.511 Acquired absence of right leg below knee; Z89.612 Acquired absence of left leg above knee
CPT/HCPCS: 45385; 45380; 36415; 80048; 81001; 82948; 83036; 83735; 85014; 85018; 85025; 87015; 87045; 87046; 87269; 87272; 87324; 87427; 88305; 96360; 96361; A9270; G0378; G0379; J1815; J2704; J7120

== ENCOUNTER 2020-10-31 12:53 | Inpatient (IN) | payer MEDICARE, OTHER, SELFPAY ==
--- NOTE | ~2020-10-31 | US_ITS ---
EXAMINATION: US renal BI DATE: 11/01/2020 10:36 INDICATION: Acute kidney injury. TECHNIQUE: Multiple ultrasound grayscale images of the kidneys were obtained. COMPARISON: CT abdomen and pelvis 10/31/2020 FINDINGS: Sensitivity is decreased by obesity. The right kidney measures 10.4 x 4.9 x 5.7 cm. The left kidney m easures 11.4 x 7.9 x 7.1 cm. The kidneys demonstrate normal parenchymal echogenicity. There is no hyd ronephrosis. The bladder is normal. IMPRESSION: 1. Normal kidneys. No hydronephrosis. Reviewed, dictated and finalized at location A.
--- NOTE | ~2020-10-31 | XR_ITS ---
EXAMINATION: XR chest 1V portable DATE: 11/04/2020 05:59 INDICATION: Respiratory failure on mechanical ventilation. TECHNIQUE: A single frontal view of the chest was obtained. COMPARISON: Chest single view 11/03/2020 FINDINGS: There is mild atelectasis in the lower lung zones. No pleural effusion or pneumothorax. The heart size is normal. The endotracheal tube tip is 5.1 cm above the leana. The nasogastric tube is not well visualized beyond the midesophagus. A right internal jugular central venous catheter is seen with tip in the superior vena cava. IMPRESSION: 1. Mild atelectasis in the lower lung zones. 2. Nasogastric tube not well visualized beyond the midesophagus. Reviewed, dictated and finalized at location A.
--- NOTE | ~2020-10-31 | XR_ITS ---
EXAMINATION:XR_CERV2-3V_CR DATE: 11/08/2020 10:55 INDICATION: Bilateral arm weakness TECHNIQUE: AP and lateral views of the cervical spine are obtained on four radiographs. COMPARISON: None FINDINGS: The examination is limited by portable technique and patient's body habitus. Alignment is n ormal. The odontoid is intact. No fracture is identified. There is mild loss of intervertebral disc s pace height at multiple levels. The vertebral body heights appear normal. There is moderate multileve l facet and uncovertebral joint osteoarthritis. A right internal jugular central venous catheter is n oted. IMPRESSION: 1. No definite acute abnormality seen, limited examination. Reviewed, dictated and finalized at location A.
--- NOTE | ~2020-10-31 | XR_ITS ---
XR abdomen NG/feed tube insert INDICATION: Evaluate due to position. TECHNIQUE: Limited KUB perform for evaluating NG tube . COMPARISON: 11/01/2020 FINDINGS: NG tube tip in the distal esophagus. Visualized bowel gas pattern is nonspecific. IMPRESSION: 1: NG tube tip in the distal esophagus. Recommend advancement. Reviewed, dictated and finalized at location A.
--- NOTE | ~2020-10-31 | XR_ITS ---
XR chest ET placement 11/01/2020 20:07 Indication: Post intubation. Respiratory distress. Procedure: AP view of the chest Comparison: Comparison to multiple prior studies sequentially, with oldest reviewed study dated 2018 Findings: Endotracheal tube tip 2.8 cm above the leana. NG tube in the distal esophagus. Cardiomegal y. No focal air space disease, pulmonary edema, pleural effusion or suspected pneumothorax.. Impression: 1: No acute cardiopulmonary disease. Reviewed, dictated and finalized at location A. Impression: 1: No acute cardiopulmonary disease.
--- NOTE | ~2020-10-31 | XR_ITS ---
EXAMINATION: XR abdomen obstructive series DATE: 10/31/2020 14:30 INDICATION: Low abdominal pain. Diarrhea. TECHNIQUE: Upright and supine views of the abdomen on 4 radiographs were obtained. COMPARISON: CT abdomen and pelvis 05/30/2019 FINDINGS: There is apparent magnification of the bowel due to obesity. There is gaseous distention of the colon. The small bowel is normal in caliber. No free intraperitoneal gas. An electronic device o verlies right abdomen. IMPRESSION: 1. Gaseous distention of the colon, likely adynamic ileus. Reviewed, dictated and finalized at location A.
--- NOTE | ~2020-10-31 | XR_ITS ---
EXAMINATION: XR chest 1V portable DATE: 11/03/2020 05:46 INDICATION: Respiratory failure on mechanical ventilation. TECHNIQUE: A single frontal view of the chest was obtained. COMPARISON: Chest single view 11/02/2020, CT abdomen and pelvis 10/31/2020 FINDINGS: There is mild atelectasis of the lung bases. No pleural effusion or pneumothorax. The heart size is normal. The endotracheal tube tip is 4.4 cm above the leana. The nasogastric tube tip is be yond the inferior margin of the radiograph, but at least to the stomach. A right internal jugular katherine tral venous catheter is seen with tip IMPRESSION: 1. Mild atelectasis at the lung bases. Reviewed, dictated and finalized at location A.
--- NOTE | ~2020-10-31 | XR_ITS ---
EXAMINATION: XR abdomen/kub 1V DATE: 11/03/2020 11:34 INDICATION: C. Difficile colitis. TECHNIQUE: A supine view of the abdomen on 2 radiographs was obtained. COMPARISON: Abdomen radiographs 11/02/2020 FINDINGS: There is gaseous distention of the colon. Small bowel is normal in caliber. A catheter over lies the pelvis. The nasogastric tube tip is in the stomach. IMPRESSION: 1. Stable colonic distention, consistent with adynamic ileus. Reviewed, dictated and finalized at location A.
--- NOTE | ~2020-10-31 | XR_ITS ---
EXAMINATION: XR abdomen/kub 1V DATE: 11/04/2020 05:59 INDICATION: C. Difficile colitis. TECHNIQUE: A supine view of the abdomen on 2 radiographs was obtained. COMPARISON: Abdomen radiographs 11/03/2020 FINDINGS: There is gaseous distention of the colon with fold thickening, consistent with colitis and adynamic ileus. The small bowel is normal in caliber. IMPRESSION: 1. Gaseous distention of the colon with fold thickening, consistent with colitis and adynamic ileus. Reviewed, dictated and finalized at location A. IMPRESSION: 1. Gaseous distention of the colon with fold thickening, consistent with coliti s and adynamic ileus.
--- NOTE | ~2020-10-31 | XR_ITS ---
XR thoracic spine 2V DATE: 11/12/2020 13:47 INDICATION: Bilateral upper extremity weakness TECHNIQUE: AP, lateral and swimmer views COMPARISON: None FINDINGS: Diffuse idiopathic skeletal hyperostosis. No fracture or dislocation or bone destruction or paraspinal soft tissue thickening is detected. The thoracic pedicles appear intact. IMPRESSION: Diffuse idiopathic skeletal hyperostosis Reviewed, dictated and finalized at location A.
--- NOTE | ~2020-10-31 | XR_ITS ---
EXAMINATION: XR chest 1V portable DATE: 11/07/2020 05:39 INDICATION: Respiratory failure on mechanical ventilation. TECHNIQUE: A single frontal view of the chest was obtained. COMPARISON: Chest single view 11/06/2020, CT abdomen and pelvis 10/31/2020 FINDINGS: There is mild atelectasis in the lower lung zones. No pleural effusion or pneumothorax. The heart size is normal. The endotracheal tube tip is 3.4 cm above the leana. The nasogastric tube tip is beyond the inferior margin of the radiograph, but at least to the stomach. A right internal jugul ar central venous catheter is seen with tip in the superior vena cava. IMPRESSION: 1. Stable mild atelectasis in the lower lung zones. Reviewed, dictated and finalized at location A.
--- NOTE | ~2020-10-31 | XR_ITS ---
XR chest 1V portable DATE: 11/06/2020 05:51 INDICATION: Respiratory failure, mechanical ventilation TECHNIQUE: Portable AP chest on 11/06/2020 at 0527 hours COMPARISON: 11/05/2020 portable AP chest at 0510 hours FINDINGS: Endotracheal tube tip 4.2 cm above leana in satisfactory position. NG tube extends to the lower margin of the radiograph above the diaphragmatic hiatus, the distal portion not included in thi s examination. Right internal jugular central venous catheter tip overlies the superior vena cava. Heart size is not optimally evaluated on AP projection because of magnification. Mild infiltrate or a telectasis is again noted at the lung bases. IMPRESSION: No significant change since 11/05/2020 Reviewed, dictated and finalized at location A.
--- NOTE | ~2020-10-31 | XR_ITS ---
EXAMINATION: XR abdomen obstructive series DATE: 11/02/2020 08:07 INDICATION: Colitis. Adynamic ileus. TECHNIQUE: Upright and supine views of the abdomen on 3 radiographs were obtained. COMPARISON: CT abdomen and pelvis 10/31/2020 FINDINGS: There is gaseous distention of the colon. There is fold thickening of the distal colon. The small bowel is normal in caliber. No free intraperitoneal gas. The nasogastric tube tip is in the st omach. IMPRESSION: 1. Gaseous distention of the colon with distal fold thickening, consistent with colitis and colonic i leus. Reviewed, dictated and finalized at location A. IMPRESSION: 1. Gaseous distention of the colon with distal fold thickening, consistent with colitis and colonic ileus.
--- NOTE | ~2020-10-31 | US_ITS ---
EXAMINATION: US soft tissue LE RT EXAM DATE: 11/05/2020 11:43 INDICATION: Swelling, ? Abscess. Above-knee amputations. TECHNIQUE: Multiple grayscale and Doppler images of the right stump, area of bruising were obtained ( by a technologist who performed the scan) and subsequently reviewed. There is no prior study for bautista owens. FINDINGS: Scanning in the right stump region demonstrates some skin thickening, could indicate cellulitis. Also there may be some edema within the subcutaneous fat. There is no fluid collection/abscess deep to th is. No dirty shadowing to suggest emphysema. IMPRESSION: 1. Right stump skin thickening, some subcutaneous edema suspected. 2. No focal fluid pocket. Reviewed, dictated and finalized at location A.
--- NOTE | ~2020-10-31 | CT_ITS ---
EXAMINATION: CT brain wo con DATE: 11/01/2020 18:13 INDICATION: Acute mental status changes. TECHNIQUE: Computed tomography (CT) of the head was performed without intravenous contrast. The dose- length product was 681.00 mGy-cm. Automated exposure control and iterative reconstruction technique w ere employed. COMPARISON: CT dated 02/28/2012 FINDINGS: There are scattered mild periventricular and subcortical white matter changes, most likely related to small vessel ischemic disease (microangiopathy). No acute intracranial hemorrhage, infarct ion, mass or mass effect. There is mucosal thickening of the left maxillary, sphenoid and the ethmoid sinuses. There is intracranial atherosclerosis. No depressed skull fractures. Mastoids are pneumatiz ed. IMPRESSION: 1. No acute intracranial abnormality. 2: Chronic age-related findings. Reviewed, dictated and finalized at location A.
--- NOTE | ~2020-10-31 | CT_ITS ---
EXAMINATION: CT abdomen pelvis wo con DATE: 10/31/2020 17:11 INDICATION: Low abdominal pain. TECHNIQUE: Computed tomography (CT) of the abdomen and pelvis was performed without intravenous contr ast. Automated exposure control and iterative reconstruction technique were employed. The dose-length product was 1568.64 mGy-cm. COMPARISON: CT abdomen and pelvis 11/28/2019 FINDINGS: The visualized portions of the lung bases demonstrate mild atelectasis. No pleural effusion . The heart size is normal. There are coronary artery calcifications. No pericardial effusion. The li ann is normal. There are gallstones in the gallbladder, which is distended. There is moderate splenom egaly measuring 18.7 cm. The pancreas, adrenal glands, and kidneys are normal. There is wall thickeni ng of the colon from the transverse colon to the sigmoid colon. There is distention of the colon with out obstruction. The appendix is not visualized. There is fat stranding around the transverse, descen ding, and sigmoid colon. The small bowel is normal in caliber. There is mild bilateral external iliac lymphadenopathy. There is no free intraperitoneal fluid. There is a benign bone island in right femo ral head. There is mild lumbar spondylosis. There are bridging endplate osteophytes at multiple level s in the thoracic spine, consistent with diffuse idiopathic skeletal hyperostosis (DISH). IMPRESSION: 1. Colitis and colonic ileus. 2. Cholelithiasis. Gallbladder distention may be secondary to fasting or acute cholecystitis. Correla te with physical exam. 3. Chronic moderate splenomegaly. Reviewed, dictated and finalized at location A. IMPRESSION: 1. Colitis and colonic ileus. 2. Cholelithiasis. Gallbladder distention may be secondary to fasting or acute cholecystitis. Correlate with physical exam. 3. Chronic moderate splenomegaly.
--- NOTE | ~2020-10-31 | XR_ITS ---
EXAMINATION: XR chest 1V portable DATE: 11/05/2020 06:00 INDICATION: Respiratory failure. TECHNIQUE: A single frontal view of the chest was obtained. COMPARISON: Chest single view 11/04/2020 FINDINGS: There is mild atelectasis in the lower lung zones. No pleural effusion or pneumothorax. The heart size is normal. The endotracheal tube tip is 4.0 cm above the leana. A right internal jugular central venous catheter is seen with tip in the superior vena cava. The nasogastric tube tip is beyo nd the inferior margin of the radiograph, but at least to the stomach. IMPRESSION: 1. Mild atelectasis in the lower lung zones. Reviewed, dictated and finalized at location A.
--- NOTE | ~2020-10-31 | XR_ITS ---
XR chest port-a-cath/central 11/01/2020 21:17 Indication: Central line placement Procedure: AP portable chest Comparison: Comparison to multiple prior studies sequentially, with oldest reviewed study dated 08/12. Findings: Endotracheal tube tip 4.5 cm above the leana. Right IJ central line tip in the SVC. Distal aspect of the NG tube not visualized. Cardiomegaly. No overt pulmonary edema. No focal pneumonia. Sh allow inspiration with crowding of the pulmonary vessels. No significant pleural effusion or pneumoth orax. No acute osseous abnormality. Impression: 1: No acute cardiopulmonary disease. Reviewed, dictated and finalized at location A. Impression: 1: No acute cardiopulmonary disease.
--- NOTE | ~2020-10-31 | XR_ITS ---
EXAMINATION: XR chest 1V portable DATE: 11/02/2020 08:06 INDICATION: Acute respiratory failure. TECHNIQUE: A single frontal view of the chest was obtained. COMPARISON: Chest single view 11/01/2020, CT abdomen and pelvis 10/31/2020 FINDINGS: There is mild atelectasis in the lower lung zones. No pleural effusion or pneumothorax. The heart size is normal. The endotracheal tube tip is 1.9 cm above the leana. The nasogastric tube tip is beyond the inferior margin of the radiograph, but at least to the stomach. A right internal jugul ar central venous catheter is seen with tip in the superior vena cava. IMPRESSION: 1. Mild atelectasis in the lower lung zones. Reviewed, dictated and finalized at location A.
--- NOTE | ~2020-10-31 | XR_ITS ---
EXAMINATION: XR abdomen NG/feed tube rechec DATE: 11/01/2020 22:00 INDICATION: Orogastric tube placement. TECHNIQUE: A semiupright view of the abdomen was obtained. COMPARISON: Abdomen radiograph at 7:56 PM FINDINGS: The lower abdomen is excluded. The nasogastric tube tip is in the distal stomach. There is gaseous distention of the colon. IMPRESSION: 1. Nasogastric tube tip in the distal stomach. 2. Gaseous distention of the colon, consistent with adynamic ileus. Reviewed, dictated and finalized at location A.
--- NOTE | ~2020-10-31 | XR_ITS ---
XR cervical spine 4-5V DATE: 11/12/2020 13:47 INDICATION: Weakness of both upper extremities TECHNIQUE: AP, open-mouth, bilateral oblique, lateral views COMPARISON: None FINDINGS: Examination is limited and incomplete; C6 and C7 are not demonstrated on the lateral view d ue to superimposed shoulders. There are bridging osteophytes at C2-3, C3-4. C1 and C2 are normally aligned and the odontoid process is intact. No fracture or dislocation is noted at C1-C5. IMPRESSION: Incomplete examination; consider CT examination if the cervical spine cannot be adequatel y demonstrated radiographically. Reviewed, dictated and finalized at location A. IMPRESSION: Incomplete examination; consider CT examination if the cervical spi ne cannot be adequately demonstrated radiographically.
--- NOTE | ~2020-10-31 | XR_ITS ---
XR abdomen/kub 1V 11/01/2020 18:23 Indication: C. Difficile infection. Fever. Procedure: KUB Comparison: 10/31/2020 Findings: Dilated gas-filled colon is present throughout the abdomen unchanged, likely ileus. Mechani alo device reidentified overlying the right midabdomen. No free air or no significant small bowel dil ation. Impression: 1: Unchanged dilated colon, compatible with ileus. Reviewed, dictated and finalized at location A. Impression: 1: Unchanged dilated colon, compatible with ileus.
--- NOTE | ~2020-10-31 | XR_ITS ---
EXAMINATION: XR chest 1V portable INDICATION: Rebound leukocytosis TECHNIQUE: Portable AP chest at 0745 hours COMPARISON: 11/07/2020 FINDINGS: The endotracheal and nasogastric tubes have been removed. A right internal jugular central venous catheter ends with its tip in the proximal superior vena cava. There are minimal opacities of the lung bases. No pleural effusion or pneumothorax is identified. The cardiomediastinal silhouette i s normal for technique. IMPRESSION: 1. Bibasilar airspace opacities, consistent with atelectasis versus pneumonia. Reviewed, dictated and finalized at location D.
[2020-10-31 13:14] VITALS: BP 85/46; PULSE 90; RESP 28; TEMP 36.2; O2SAT 100
[2020-10-31 13:45] VITALS: BP 92/52; PULSE 87; RESP 22; O2SAT 99
[2020-10-31] MEDS: ONDANSETRON HCL ODT 4 MG TABLET PO (14:43)
[2020-10-31] MEDS: SODIUM CHLORIDE 0.9% IV 1,000 ML 999 ML IV CONT ×2 (14:43→17:12)
[2020-10-31 15:12] LABS: Basophils Absolute Auto 0.2 K/mm3 (0.0-0.1); Basophils Percent Auto 0.5 % (0.2-1.2); Eosinophils Absolute Auto 0.1 K/mm3 (0-0.3); Eosinophils Percent Auto 0.2 % (0-4.4); Hematocrit 44.5 % (42.0-52.0); Hemoglobin 14.1 g/dL (14.0-18.0); Immature Granulocyte Absolute 1.15 K/mm3 (0.00-0.031); Immature Granulocyte Percent A 3.4 % (0-0.5); Lymphocytes Absolute Auto 1.28 K/mm3 (0.9-3.2); Lymphocytes Percent Auto 3.8 % (18.3-44.2); Mean Corpuscular HGB Conc 31.7 g/dl (32-36); Mean Corpuscular Hemoglobin 27.1 pg (26-34); Mean Corpuscular Volume 85.4 fl (80-100); Mean Platelet Volume 9.8 fl (7.4-10.4); Monocytes Absolute Auto 2.4 K/mm3 (0.1-0.6); Monocytes Percent Auto 7.2 % (2.6-8.5); Neutrophils Absolute Auto 28.8 K/mm3 (1.3-6.7); Neutrophils Percent Auto 84.9 % (45.5-73.1); Platelet Count Result 202 k/mm3 (150-375); Red Blood Count 5.21 M/mm3 (4.6-6.20); Red Cell Distribution Width 15.5 % (11.5-14.5); White Blood Count 33.9 K/mm3 (4.5-10.0)
[2020-10-31 15:24] LABS: Alanine Aminotransferase 15 U/L (4-50); Albumin Level 3.5 g/dL (3.5-5.1); Alkaline Phosphatase 145 U/L (38-126); Anion Gap 18 mmol/L (8-16); Aspartate Amino Transferase 21 U/L (17-59); Bilirubin,Total 1.2 mg/dL (0.2-1.3); Blood Urea Nitrogen 65 mg/dL (9-20); Calcium 8.4 mg/dL (8.4-10.2); Carbon Dioxide 16 mmol/L (22-30); Chloride 102 mmol/L (98-107); Estimated Glomerular Filt Rate 28; Glucose 322 mg/dL (75-110); Lipase 381 U/L (23-300); Potassium 3.7 mmol/L (3.4-5.0); Sodium 136 mmol/L (137-145)
[2020-10-31 15:27] VITALS: BP 93/52; PULSE 90; RESP 26; O2SAT 98
--- NOTE | 2020-10-31 15:46 | PC.NURSE ---
occult blood stool is negative
--- NOTE | 2020-10-31 16:43 | ED.GENADULT ---
HPI - General Adult General Chief complaint: Nausea/Vomiting/Diarrhea Stated complaint: N/V/D 5 DAYS Time Seen by Provider: 10/31/20 13:55 Source: patient, EMS and RN notes reviewed Mode of arrival: EMS Limitations: no limitations History of Present Illness HPI narrative: Patient is 60 years old white male presented to the ED from home with diarrhea, started 5 days ago, on average 5-6 times a day, associated with nausea, vomiting and intermittent abdominal pain. Patient denies any fever, chills, chest pain, shortness of breath, back pain. Patient been fully vaccinated for COVID-19. Patient started on antibiotic for pneumonia, for 2 weeks, after 10 days patient diarrhea. Patient reported history of C. difficile 3 times in the past, last one was 2 years ago, patient does not believe that This diarrhea is C. difficile. He is telling me, it smells different and feels different Related Data Home Medications Medication Instructions Recorded Confirmed apixaban 5 mg tablet 5 mg PO BID 05/14/19 08/28/20 carvedilol phosphate 80 mg 40 mg PO DAILY 05/14/19 08/28/20 capsule,[id number] multiphase digoxin 250 mcg (0.25 mg) tablet 125 mcg PO DAILY 05/14/19 08/28/20 insulin regular hum U-500 conc See Rx Instructions .ROUTE .COMPLEX 05/14/19 08/28/20 Livalo 4 mg PO DAILY 08/12/19 08/28/20 losartan 50 mg PO DAILY 08/12/19 08/28/20 spironolactone 25 mg PO DAILY 08/12/19 08/28/20 torsemide 20 mg PO QAM 08/12/19 08/28/20 potassium chloride 20 mEq 60 meq PO DAILY tablet 07/31/20 08/28/20 tablet,extended release(part/cryst) pregabalin 100 mg capsule 100 mg PO TID 07/31/20 08/28/20 Toujeo SoloStar U-300 Insulin 180 unit SUBCUT DAILY 08/28/20 08/28/20 Allergies Allergy/AdvReac Type Severity Reaction Status Date / Time meperidine AdvReac Mild Nausea Verified 10/31/20 13:21 Review of Systems Review of Systems: Narrative: CONSTITUTIONAL: Denies fever, chills, or sweats. EYES: Denies visual changes, redness, or discharge. ENT: Denies rhinorrhea, congestion, sore throat, or otalgia. CARDIOVASCULAR: Denies chest pain, palpitations, or edema. RESPIRATORY: Denies cough or dyspnea. GASTROINTESTINAL: Denies abdominal pain, nausea, vomiting, or diarrhea. GENITOURINARY: Denies dysuria or hematuria. SKIN: Denies rash or itching. MUSCULOSKELETAL: Denies back pain, joint pain, or myalgia. NEUROLOGIC: Denies headache, numbness, or weakness. PSYCHIATRIC: Denies anxiety or depression. PENDING SALE TO [facility] Past Medical History Medical History Acute renal failure superimposed on stage 3 chronic kidney disease The patient had temporary dialysis x3 at 1 time Acute worsening of stage 3 chronic kidney disease Atrial fibrillation On chronic anticoagulation with Eliquis Atrial fibrillation C. difficile colitis C. difficile colitis Chronic kidney disease, stage 3 Diabetes mellitus type 2 in obese Diabetes mellitus with hyperglycemia Diabetic nephropathy Hands Diabetic peripheral neuropathy Diastolic dysfunction Last echocardiogram March 2018 demonstrated normal EF of 65-70 with moderate LVH and severe left atrial enlargement GI bleed HTN (hypertension), malignant Hyperlipidemia Morbid obesity Obstructive sleep apnea treated with BiPAP patient is noncompliant with his BiPAP Peripheral vascular disease Surgical History Surgical History History of appendectomy History of bilateral carpal tunnel release History of left above knee amputation History of right below knee amputation History of tonsillectomy and adenoidectomy Family History Family History Sibling Lung cancer Sister Hypertension Brain cancer Father Diabetes mellitus Coronary artery disease Hypertension Mother Acute myocardial infarction Other Family history of arthritis Social History Social History
[2020-10-31] MEDS: ONDANSETRON INJ 4 MG/2 ML VIAL IV PUSH (17:13)
[2020-10-31] MEDS: MORPHINE SULFATE (*CRX) 4 MG/ML INJ IV PUSH (17:13)
[2020-10-31 17:30] VITALS: BP 104/49; PULSE 83; RESP 24; O2SAT 98
[2020-10-31 17:58] LABS: IFOB Positive Control Positive
[2020-10-31 18:02] LABS: Immunochemical Fecal Occult Bl Negative (N)
--- NOTE | 2020-10-31 18:15 | PC.NURSE ---
abhinav will discuss need for bariatric bed with her zinc furnace charger. ed charge made aware of pt request for bariatric bed
[2020-10-31 18:26] LABS: Lactic Acid Reflex 1.9 mmol/L (0.7-2.1)
[2020-10-31 18:50] VITALS: PULSE 71; RESP 18; TEMP 37; O2SAT 96; BMI 63.7
--- NOTE | 2020-10-31 18:50 | ADMGEN ---
This patient, Lester Nguyễn, was admitted to Medical Room 340-01. Patient/family oriented to hospital policies and general routines including ID bracelet, bed and alarms, visiting hours, pain management, procedures, bathroom and other care routines, personal items, smoking policy, room service/diet, and visiting hours. Information on how to activate the Rapid Response Team has been discussed. Patient/Family are encouraged to report perceived risks to care and to ask questions if they do not understand what they are told or what they should do.
[2020-10-31] MEDS: SODIUM CHLORIDE 0.9% IV 1,000 ML 250 ML IV CONT (19:28)
[2020-10-31 22:00] VITALS: BP 99/45; PULSE 100; RESP 16; TEMP 36.6; O2SAT 93
[2020-10-31] MEDS: SODIUM CHLORIDE 0.9% IV 1,000 ML 125 ML IV CONT (23:03)
[2020-11-01] VITALS (17 sets, daily range): BP systolic 50–105; BP diastolic 21–48; PULSE 85–114; RESP 18–35; TEMP 36.9–39.9; O2SAT 92–100
--- NOTE | 2020-11-01 00:55 | PM.IMHP ---
H&P: HPI History of Present Illness Date/Time: 11/01/20 00:55 Chief Complaint: Diarrhea Narrative: This is a 60-year-old male with past medical history significant for type 2 diabetes mellitus insulin dependent, atrial fibrillation, congestive heart failure, coronary artery disease, peripheral vascular disease, status post bilateral lower extremity amputation, obstructive sleep apnea noncompliant with CPAP. Patient presented to the emergency room due to diarrhea for the last 3 weeks he had recently completed antibiotic course in the outpatient setting for pneumonia. Has had some nausea and vomiting as well abdominal distension and pain going across his abdomen he went to see his primary care physician who asked him to take Imodium initially it had improved but then it reoccurred and started having nausea and vomiting as well.He decided to come to the emergency room. He denies any fevers rigors chills cough or sputum production. Preliminary workup was significant for WBC of 30,000 a creatinine of 2.[address] scan with ileus and distended gallbladder. Review of Systems Review of Systems: Narrative: Abdominal distension abdominal pain nausea and vomiting diarrhea Constitutional: Constitutional: Denies chills and Denies fever(s) Eyes: Eyes: Denies change in vision ENT: Denies nasal congestion, Denies nasal discharge and Denies nasal obstruction Cardiovascular: Cardiovascular: Denies chest pain, Denies lightheadedness, Denies radiating jaw, neck or arm pain, Denies palpitations, Denies dyspnea and Reports orthopnea Comments: PATIENT SLEEPS SITTING IN HIS WHEELCHAIR Respiratory: Respiratory: Denies cough, Denies dyspnea and Denies wheezing Gastrointestinal: Gastrointestinal: Reports GI cramping, Reports diarrhea, Reports nausea and Reports vomiting Genitourinary: Genitourinary: Reports no additional male genitourinary complaints Musculoskeletal: Musculoskeletal: Reports no additional musculoskeletal complaints Integumentary/Breasts: Skin/Breast: Reports system reviewed and no additional complaints, except as docu Neurologic: Reports system reviewed and no additional complaints, except as documented Psychiatric: Psychiatric: Reports no additional psychiatric complaints Endocrine: Endocrine: Reports no additional endocrine complaints Hematologic/Lymphatic: Hematologic/Lymphatic: Reports no additional hematologic/lymphatic complaints Allergic/Immunologic: Allergic/Immunologic: Reports no additional allergic/immunologic complaints PMFSH Past Medical History Medical History Acute renal failure superimposed on stage 3 chronic kidney disease The patient had temporary dialysis x3 at 1 time Acute worsening of stage 3 chronic kidney disease Atrial fibrillation On chronic anticoagulation with Eliquis Atrial fibrillation C. difficile colitis C. difficile colitis Chronic kidney disease, stage 3 Diabetes mellitus type 2 in obese Diabetes mellitus with hyperglycemia Diabetic nephropathy Hands Diabetic peripheral neuropathy Diastolic dysfunction Last echocardiogram March 2018 demonstrated normal EF of 65-70 with moderate LVH and severe left atrial enlargement GI bleed HTN (hypertension), malignant Hyperlipidemia Morbid obesity Obstructive sleep apnea treated with BiPAP patient is noncompliant with his BiPAP Peripheral vascular disease Surgical History Surgical History History of appendectomy History of bilateral carpal tunnel release History of left above knee amputation History of right below knee amputation History of tonsillectomy and adenoidectomy Family History Family History Sibling Lung cancer Sister Hypertension Brain cancer Father Diabetes mellitus Coronary artery disease Hypertension Mother Acute myocardial infarction
[2020-11-01 01:10] LABS: Glucose Point of Care 279 mg/dl (65-105)
[2020-11-01 05:55] LABS: Basophils Absolute Auto 0.2 K/mm3 (0.0-0.1); Basophils Percent Auto 0.5 % (0.2-1.2); Eosinophils Absolute Auto 0.1 K/mm3 (0-0.3); Eosinophils Percent Auto 0.2 % (0-4.4); Hematocrit 40.9 % (42.0-52.0); Immature Granulocyte Absolute 1.07 K/mm3 (0.00-0.031); Immature Granulocyte Percent A 3.3 % (0-0.5); Lymphocytes Absolute Auto 1.39 K/mm3 (0.9-3.2); Lymphocytes Percent Auto 4.2 % (18.3-44.2); Mean Corpuscular HGB Conc 31.8 g/dl (32-36); Mean Corpuscular Hemoglobin 27.2 pg (26-34); Mean Corpuscular Volume 85.6 fl (80-100); Mean Platelet Volume 9.8 fl (7.4-10.4); Monocytes Absolute Auto 2.7 K/mm3 (0.1-0.6); Monocytes Percent Auto 8.2 % (2.6-8.5); Neutrophils Absolute Auto 27.5 K/mm3 (1.3-6.7); Neutrophils Percent Auto 83.6 % (45.5-73.1); Platelet Count Result 205 k/mm3 (150-375); Red Blood Count 4.78 M/mm3 (4.6-6.20); Red Cell Distribution Width 15.6 % (11.5-14.5); White Blood Count 32.9 K/mm3 (4.5-10.0)
[2020-11-01 06:16] LABS: Anion Gap 15 mmol/L (8-16); Blood Urea Nitrogen 80 mg/dL (9-20); Calcium 7.6 mg/dL (8.4-10.2); Carbon Dioxide 15 mmol/L (22-30); Chloride 105 mmol/L (98-107); Estimated CRCL calculation 42 ml/min; Estimated Glomerular Filt Rate 21; Glucose 295 mg/dL (75-110); Potassium 3.3 mmol/L (3.4-5.0); Sodium 135 mmol/L (137-145)
[2020-11-01] MEDS: INSULIN HUMAN REGULAR (*BKC) 100 UNITS/ML 30 UNITS SUB-Q (06:58)
[2020-11-01] MEDS: SODIUM CHLORIDE 0.9% IV 1,000 ML 125 ML IV CONT (07:00)
[2020-11-01 07:03] LABS: Glucose Point of Care 324 mg/dl (65-105)
[2020-11-01] MEDS: KCL 20 MEQ/LR 1,000 ML 150 ML IV CONT (08:55)
[2020-11-01] MEDS: INSULIN ASPART (*BKC) 100 UNITS/ML SUB-Q ×3 (08:58→18:31)
[2020-11-01] MEDS: INSULIN GLARGINE (*BKC) 100 UNITS/ML 90 UNITS SUB-Q (08:59)
[2020-11-01] MEDS: APIXABAN 5 MG TABLET PO (09:04)
[2020-11-01] MEDS: POTASSIUM CHLORIDE 20 MEQ TABLET.ER 60 MEQ PO (09:04)
[2020-11-01] MEDS: LOSARTAN POTASSIUM 50 MG TABLET PO (09:05)
[2020-11-01] MEDS: PREGABALIN (*CRX) 50 MG CAPSULE 100 MG PO ×2 (09:07→12:54)
[2020-11-01 12:36] LABS: Glucose Point of Care 363 mg/dl (65-105)
[2020-11-01 12:48] LABS: Albumin Level 2.7 g/dL (3.5-5.1); Anion Gap 13 mmol/L (8-16); Blood Urea Nitrogen 85 mg/dL (9-20); Calcium 7.5 mg/dL (8.4-10.2); Carbon Dioxide 16 mmol/L (22-30); Chloride 103 mmol/L (98-107); Estimated CRCL calculation 34 ml/min; Estimated Glomerular Filt Rate 16; Glucose 393 mg/dL (75-110); Phosphorus 3.9 mg/dL (2.5-4.5); Potassium 3.5 mmol/L (3.4-5.0); Sodium 132 mmol/L (137-145)
--- NOTE | 2020-11-01 12:48 | WPDGICN ---
Assessment and Plan Assessment and plan (1) Diarrhea: Qualifiers: Diarrhea type: presumed infectious Qualified Code(s): R19.7 - Diarrhea, unspecified Code(s): R19.7 - Diarrhea, unspecified Status: Acute Assessment and Plan: 60 yo with diarrhea, leukocytosi, and abnormal imaging digestive c/w colitis - likely infectious c-diff with recent antibiotic usage. - Await stool studies results. - Continue oral vancomycin 250 mg Q6hr. - Monitor WBC. (2) Splenomegaly: Code(s): R16.1 - Splenomegaly, not elsewhere classified Status: Acute Assessment and Plan: Ct scan splenomegaly: etiology hepatic vs myeloproliferative vs vascular occlusion - Consider US with doppler - hematology evaluation (3) Gallstones: Code(s): K80.20 - Calculus of gallbladder without cholecystitis without obstruction Status: Acute Assessment and Plan: gallstones on CT - not symptomatic - Observe. GI Consult Note Consult date/time: 11/01/20 12:48 HPI: Lester Nguyễn is a 60 year old male with past medical history significant for HTN, CKD stage 3, neuropathy, c-diff, type 2 diabetes, atrial fibrillation, congestive heart failure, coronary artery disease, peripheral vascular disease, status post bilateral lower extremity amputation, obstructive sleep apnea, T& A, Appendectomy, carpal tunnel release, who we are asked to see for diarrhea. This was reported for the last 3 weeks. He had recently completed antibiotic course in the outpatient setting for pneumonia. He had some nausea and vomiting as well abdominal distension and pain going across his abdomen he went to see his primary care physician who asked him to take Imodium initially it had improved but then it reoccurred and started having nausea and vomiting as well.He decided to come to the emergency room. His WBC of 32,000 & neutrophils were 83. H & H 13 & 40. AST & ALT NML. Alk Phos 145. T-Bili NML. A CT scan revealed transverse and sigmoid colitis, gallstones and splenomegaly. Currently he keeps falling asleep during his exam and is a poor historian. Most records obtained from his chart and nursing staff.The nurse reports no BM this am. He has had a colonoscopy in the past, but not sure when. He was started on oral vancomycin in ER. Stool studies and c diff are pending. Review of Systems Constitutional: Constitutional: Reports as per HPI Cardiovascular: Cardiovascular: Reports no additional cardiovascular complaints Gastrointestinal: Gastrointestinal: Reports as per HPI [facility] Past Medical History Medical History Acute renal failure superimposed on stage 3 chronic kidney disease The patient had temporary dialysis x3 at 1 time Acute worsening of stage 3 chronic kidney disease Atrial fibrillation On chronic anticoagulation with Eliquis Atrial fibrillation C. difficile colitis C. difficile colitis Chronic kidney disease, stage 3 Diabetes mellitus type 2 in obese Diabetes mellitus with hyperglycemia Diabetic nephropathy Hands Diabetic peripheral neuropathy Diastolic dysfunction Last echocardiogram March 2018 demonstrated normal EF of 65-70 with moderate LVH and severe left atrial enlargement GI bleed HTN (hypertension), malignant Hyperlipidemia Morbid obesity Obstructive sleep apnea treated with BiPAP patient is noncompliant with his BiPAP Peripheral vascular disease Surgical History Surgical History History of appendectomy History of bilateral carpal tunnel release History of left above knee amputation History of right below knee amputation History of tonsillectomy and adenoidectomy Family History Family History Sibling Lung cancer Sister Hypertension Brain cancer Father Diabetes mellitus Coronary artery disease Hyper
[2020-11-01] MEDS: INSULIN HUMAN REGULAR (*BKC) 100 UNITS/ML 15 UNITS SUB-Q ×2 (12:52→18:30)
--- NOTE | 2020-11-01 16:38 | PM.IMPN ---
Progress Note: A&P Assessment and Plan (1) Diarrhea: Qualifiers: Diarrhea type: presumed infectious Qualified Code(s): R19.7 - Diarrhea, unspecified Code(s): R19.7 - Diarrhea, unspecified Status: Acute Assessment and Plan: POSSIBLE TO BE C DIFFICILE PATIENT HAS HAD IN THE PAST AND WITH SIGNIFICANT LEUKOCYTOSIS DAY 2 PO VANCOMYCIN (2) Colitis: Code(s): K52.9 - Noninfective gastroenteritis and colitis, unspecified Status: Acute Assessment and Plan: LIKELY TO BE C DIFFICILE COLITIS P.O. VANCOMYCIN (3) Leukocytosis: Qualifiers: Leukocytosis type: unspecified Qualified Code(s): D72.829 - Elevated white blood cell count, unspecified Code(s): D72.829 - Elevated white blood cell count, unspecified Status: Acute Assessment and Plan: APPEARS TO BE SECONDARY TO COLITIS LIKELY TO BE C DIFFICILE (4) RADHA (acute kidney injury): Code(s): N17.9 - Acute kidney failure, unspecified Status: Acute Assessment and Plan: HOLDING SPIRONOLACTONE AND TORSEMIDE IV FLUIDS RENAL ULTRASOUND NEGATIVE ISLAS CATHETER (5) Morbid obesity: Code(s): E66.01 - Morbid (severe) obesity due to excess calories Status: Acute Assessment and Plan: ON CLEAR LIQUIDS CURRENTLY (6) Diabetes mellitus with hyperglycemia: Code(s): E11.65 - Type 2 diabetes mellitus with hyperglycemia Status: Acute Assessment and Plan: BASAL AND PREMEAL INSULIN AT ABOUT 50% OF HOME DOSES DUE TO DECREASED PO INTAKE INSULIN SLIDING SCALE NEEDED (7) Atrial fibrillation: Qualifiers: Atrial fibrillation type: unspecified chronic Qualified Code(s): I48.20 - Chronic atrial fibrillation, unspecified Code(s): I48.91 - Unspecified atrial fibrillation Status: Acute Assessment and Plan: RATE CONTROL AND ANTICOAGULATED (8) HTN (hypertension), malignant: Code(s): I10 - Essential (primary) hypertension Status: Chronic Assessment and Plan: BP NOTED TODAY STABLE (9) DARIN (obstructive sleep apnea): Code(s): G47.33 - Obstructive sleep apnea (adult) (pediatric) Status: Acute Assessment and Plan: PATIENT REFUSES TO WEAR OXYGEN BY NASAL CANNULA AND IS NONCOMPLIANT WITH CPAP Subjective Date/time seen: 11/01/20 16:38 Interval history: Admitted 10/[address] c/w colitis, dilated GB, and moderate splenomegaly. 11/01: Declines to interact. Diarrhea and incontinence continue. Review of Systems Review of Systems: ROS unobtainable: Yes unobtainable due to mental status (refuses) Exam Narrative: Exam Narrative: HEENT: PERRL, sclerae nonicteric, pharyngeal mucosa pink and intact NECK: No JVD seen CHEST: Clear to auscultation. Normal effort. HEART: NL S1/S2, regular, no murmur ABDOMEN: BS+, PROTUBERANT AND SOFT WITH MILD DIFFUSE TENDERNESS, no mass, no bruits EXTREMITIES: No cyanosis, edema, or clubbing NEUROLOGIC: CN intact and symmetric to inspection. MUSCULOSKELETAL: Tone and strength symmetric. Bilateral AKA. PSYCH: Drowsy but arouses easily Objective Data Vital Signs Vital Signs: Vital Signs - 24 hr 10/31/20 17:30 10/31/20 18:50 10/31/20 22:00 Temperature 98.6 F 97.9 F Pulse Rate 83 71 100 Respiratory Rate 24 H 18 16 Blood Pressure 104/49 L 99/45 L Pulse Oximetry 98 96 93 11/01/20 05:52 11/01/20 09:04 11/01/20 14:00 Temperature 98.4 F 98.6 F Pulse Rate 114 H 114 H 98 Respiratory Rate 18 20 Blood Pressure 105/40 L 94/41 L Pulse Oximetry 92 99 Intake/Output Intake/Output: Intake & Output 10/29/20 10/30/20 10/31/20 11/01/20 23:59 23:59 23:59 23:59 Intake Total 1999 1690 Balance 1999 1690 Meds/Results Medications: Active Medications Generic Name Dose Route Start Last Admin Trade Name Freq PRN Reason Stop Dose Admin Apixaban 5 mg 11/01/20 09:00 11/01/20 09:04 Apixaban 5 Mg Tablet PO 5 mg BID [id number]
[2020-11-01 17:04] LABS: Glucose Point of Care 357 mg/dl (65-105)
[2020-11-01 17:46] LABS: Alveolar/Arterial O2 Gradient 192.9 mmHg; Base Excess ABG -7.8 mEq/l (+/-2.0); Fractional Inspired Oxygen 44 %; HCO3 ABG 15.5 mEq/l (22.0-26.0); Oxygen Content ABG 18.6 %vol (16.0-22.0); Oxyhemoglobin 95.6 % THb (90.0-100.0); PCO2 ABG 26.5 mmHg (35.0-45.0); PO2 ABG 90.6 mmHg (80.0-100.0); PO2 FiO2 Ratio Arterial Blood 2.06 %; Total Hemoglobin 13.8 g/dL (12.0-18.0); pH ABG 7.385 (7.350-7.450)
[2020-11-01 17:48] LABS: Device NASAL CANNULA; Site Drawn RIGHT BRACHIAL
[2020-11-01 18:56] LABS: Glucose Point of Care 383 mg/dl (65-105)
[2020-11-01] MEDS: SODIUM CHLORIDE 0.9% IV 2,000 ML 999 ML (18:59)
[2020-11-01] MEDS: ROCURONIUM BROMIDE 50 MG/5 ML VIAL 100 MG (19:45)
[2020-11-01] MEDS: RAPID SEQUENCE INTUBATION KIT 1 EACH (19:45)
[2020-11-01] MEDS: NOREPINEPHRINE 8 MG/D5W 250 ML 8 MG/250 ML BAG 9.38 MG IV CONT (20:00)
--- NOTE | 2020-11-01 21:16 | WPDPROCEDUR ---
Procedures Central Line Placement Right IJ: Central Line Date: 11/01/20 Central Line Time: 20:31 Performed Emergently - Given emergent patient condition, temporal constraints may have precluded informed consent.: Yes Time Out Performed: Yes Patient Position: supine Patient placed on monitor/pulse ox: Yes Provider Prep: sterile gown, sterile gloves, Max. 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 Intubation Intubation Date: 11/01/20 Intubation Time: 19:31 A pre-procedural Time-Out was completed immediately before starting the procedure and confirmed: Patient Identification, Site, Procedure, Patient Position and the Availability of Requisite Equipment: Yes Sedative: etomidate Mg given: 30 Paralytic: rocuronium Mg given: 200 Laryngoscope: fiber optic video scope ET tube size: 8 Tube secured depth (cm): 26 Tube secured location: teeth Tube placement confirmation: visualized tube passing through cords Patient tolerated procedure: well and no complications Intubation complications: none
[2020-11-01] MEDS: SODIUM CHLORIDE 0.9% IV 1,000 ML 999 ML IV CONT ×2 (21:31→23:20)
[2020-11-01] MEDS: INSULIN ASPART (*BKC) 100 UNITS/ML 6 UNITS SUB-Q (22:28)
[2020-11-01] MEDS: SODIUM BICARBONATE 8.4% 150 MEQ in WATER, STERILE FOR INJECTION 950 ML 100 MEQ IV CONT (22:39)
[2020-11-01 22:41] LABS: Hematocrit 41.4 % (42.0-52.0); Hemoglobin 13.3 g/dL (14.0-18.0); Mean Corpuscular HGB Conc 32.1 g/dl (32-36); Mean Corpuscular Hemoglobin 27.3 pg (26-34); Mean Platelet Volume 9.6 fl (7.4-10.4); Platelet Count Result 240 k/mm3 (150-375); Red Blood Count 4.87 M/mm3 (4.6-6.20); Red Cell Distribution Width 15.8 % (11.5-14.5); White Blood Count 38.6 K/mm3 (4.5-10.0)
[2020-11-01 22:49] LABS: Lactic Acid Reflex 1.3 mmol/L (0.7-2.1)
[2020-11-01 22:51] LABS: Alanine Aminotransferase 16 U/L (4-50); Albumin Level 2.5 g/dL (3.5-5.1); Alkaline Phosphatase 143 U/L (38-126); Anion Gap 12 mmol/L (8-16); Aspartate Amino Transferase 58 U/L (17-59); Bilirubin,Total 0.7 mg/dL (0.2-1.3); Blood Urea Nitrogen 92 mg/dL (9-20); Calcium 7.2 mg/dL (8.4-10.2); Carbon Dioxide 17 mmol/L (22-30); Chloride 105 mmol/L (98-107); Estimated CRCL calculation 29 ml/min; Estimated Glomerular Filt Rate 14; Glucose 311 mg/dL (75-110); Magnesium 2.3 mg/dL (1.6-2.3); Phosphorus 3.3 mg/dL (2.5-4.5); Potassium 3.6 mmol/L (3.4-5.0); Sodium 134 mmol/L (137-145)
[2020-11-01 22:54] LABS: Band Neutrophils Percent 6 % (0-6); INR 1.6; Lymphocytes Absolute Manual 4.24 K/mm3 (1.1-4.5); Monocytes Absolute Manual 3.86 K/mm3 (0.1-0.90); Monocytes Percent Manual 10 % (3-9); Neutrophils Absolute Manual 30.49 K/mm3 (1.3-6.7); Neutrophils Percent Manual 73 % (46-73); Platelet Estimate Adequate (Adequate); Poikilocytosis 1+ (NORMAL); Prothrombin Time 19.1 Seconds (11.1-14.7); Total Cells Counted 100
[2020-11-01 22:55] LABS: Partial Thromboplastin Time 32.6 SECONDS (22.3-36.8)
[2020-11-01] MEDS: SODIUM BICARBONATE 8.4% 50 MEQ/50 ML SYRINGE 100 MEQ IV PUSH (22:57)
[2020-11-01 23:15] LABS: Creatine Kinase 5067 U/L (55-170)
[2020-11-01] MEDS: VASOPRESSIN INJ 100 UNITS in DEXTROSE 5% 95 ML IV CONT (23:29)
[2020-11-02] VITALS (57 sets, daily range): BP systolic 79–138; BP diastolic 28–76; PULSE 82–101; RESP 22–29; TEMP 38.4–39.5; O2SAT 96–100
[2020-11-02] MEDS: FENTANYL 2,500MCG/NS250ML(*CRX 2,500 MCG/250 ML BAG IV CONT (00:20)
[2020-11-02] MEDS: MIDAZOLAM 100MG/NS 100ML(*CRX) 100 MG/100 ML BAG IV CONT (00:20)
[2020-11-02] MEDS: NOREPINEPHRINE 8 MG/D5W 250 ML 8 MG/250 ML BAG 56.25 MG IV CONT ×5 (01:47→19:56)
[2020-11-02 02:03] LABS: Glucose Point of Care 317 mg/dl (65-105)
--- NOTE | 2020-11-02 05:44 | PCRCNOTE ---
Pt has been hypotensive, RT tried multiple attempts for ABG with Doppler. pt setting are 500 VT, 22 Rate, 8 PEEP, Fi02 100% per MD orders.
[2020-11-02 06:02] LABS: Alveolar/Arterial O2 Gradient 229.6 mmHg; Base Excess ABG -9.9 mEq/l (+/-2.0); Carboxyhemoglobin 0.3 % THb (0-2.0); Fractional Inspired Oxygen 100 %; HCO3 ABG 15.1 mEq/l (22.0-26.0); Methemoglobin ABG 0.7 %THb (0-1.5); Oxygen Content ABG 21.6 %vol (16.0-22.0); Oxygen Saturation ABG 99.8 % (95.0-100.0); Oxyhemoglobin 98.1 % THb (90.0-100.0); PCO2 ABG 31.1 mmHg (35.0-45.0); PO2 ABG 452.3 mmHg (80.0-100.0); PO2 FiO2 Ratio Arterial Blood 4.52 %; Reduced Hemoglobin 0.9 %THb (0-5.0); Total Hemoglobin 14.8 g/dL (12.0-18.0); pH ABG 7.304 (7.350-7.450)
[2020-11-02 06:05] LABS: Modified Allen's Test Unable to perform; Site Drawn RIGHT RADIAL
[2020-11-02 06:06] LABS: Device VENTILATOR
[2020-11-02 06:07] LABS: Arterial Blood Gas Ventilator rate 22 /MIN
[2020-11-02 06:08] LABS: Arterial Blood Gas PEEP 8 cmH2O; Arterial Blood Gas Vent Mode CMV
[2020-11-02 06:09] LABS: Arterial Blood Gas Tidal Volume 500 ml
[2020-11-02 06:27] LABS: Hematocrit 43.7 % (42.0-52.0); Hemoglobin 13.7 g/dL (14.0-18.0); Mean Corpuscular HGB Conc 31.4 g/dl (32-36); Mean Corpuscular Hemoglobin 26.9 pg (26-34); Mean Corpuscular Volume 85.9 fl (80-100); Mean Platelet Volume 9.4 fl (7.4-10.4); Platelet Count Result 247 k/mm3 (150-375); Red Blood Count 5.09 M/mm3 (4.6-6.20); Red Cell Distribution Width 15.8 % (11.5-14.5); White Blood Count 38.4 K/mm3 (4.5-10.0)
[2020-11-02 06:33] LABS: Add Urine Microscopic? YES; Appearance Urine Cloudy (Clear); Bacteria Urine Trace /hpf; Bilirubin Urine 1+ (Negative); Blood Urine 3+ (Negative); Color Urine Amber (Yellow); Glucose Urine UA 2+ mg/dL (Negative); Ketones Urine Negative (Negative); Leukocyte Esterase Ur Negative LEU/UL (Negative); Mucus Urine Rare /lpf; Nitrate Urine Negative (Negative); Protein Urine 1+ mg/dL (Negative); Specific Grav Ur 1.023 (1.001-1.035); Squamous Epithelial Cell Urine Rare /hpf (Few)
[2020-11-02] MEDS: MINERAL OIL/WHITE PETROLATUM OINTMENT 1 APPLIC EACH EYE ×3 (06:33→19:55)
[2020-11-02 06:36] LABS: Albumin Level 2.5 g/dL (3.5-5.1); Anion Gap 13 mmol/L (8-16); Blood Urea Nitrogen 96 mg/dL (9-20); Calcium 7.1 mg/dL (8.4-10.2); Carbon Dioxide 16 mmol/L (22-30); Chloride 103 mmol/L (98-107); Estimated CRCL calculation 29 ml/min; Estimated Glomerular Filt Rate 13; Glucose 388 mg/dL (75-110); Phosphorus 4.9 mg/dL (2.5-4.5); Potassium 3.7 mmol/L (3.4-5.0); Sodium 132 mmol/L (137-145)
[2020-11-02] MEDS: SODIUM BICARBONATE 8.4% 50 MEQ/50 ML SYRINGE 100 MEQ IV PUSH (08:09)
[2020-11-02] MEDS: HEPARIN SOD/D5W 100 UNITS/ML 25,000 UNITS/250 ML BAG 15 UNITS IV CONT (08:18)
[2020-11-02 08:22] LABS: Hematocrit 44.2 % (42.0-52.0); Hemoglobin 13.9 g/dL (14.0-18.0); Mean Corpuscular HGB Conc 31.4 g/dl (32-36); Mean Corpuscular Hemoglobin 26.7 pg (26-34); Mean Platelet Volume 9.5 fl (7.4-10.4); Platelet Count Result 258 k/mm3 (150-375); Red Cell Distribution Width 15.9 % (11.5-14.5); White Blood Count 38.3 K/mm3 (4.5-10.0)
[2020-11-02 08:24] LABS: Anion Gap 14 mmol/L (8-16); Blood Urea Nitrogen 96 mg/dL (9-20); Calcium 7.2 mg/dL (8.4-10.2); Carbon Dioxide 17 mmol/L (22-30); Chloride 101 mmol/L (98-107); Estimated CRCL calculation 28 ml/min; Estimated Glomerular Filt Rate 13; Glucose 389 mg/dL (75-110); Magnesium 2.2 mg/dL (1.6-2.3); Potassium 3.7 mmol/L (3.4-5.0); Sodium 132 mmol/L (137-145)
[2020-11-02 08:25] LABS: Anion Gap 13 mmol/L (8-16); Blood Urea Nitrogen 95 mg/dL (9-20); Carbon Dioxide 21 mmol/L (22-30); Chloride 100 mmol/L (98-107); Estimated CRCL calculation 28 ml/min; Estimated Glomerular Filt Rate 13; Glucose 388 mg/dL (75-110); Potassium 3.6 mmol/L (3.4-5.0); Sodium 134 mmol/L (137-145)
[2020-11-02 08:27] LABS: INR 1.5; Prothrombin Time 17.6 Seconds (11.1-14.7)
[2020-11-02] MEDS: INSULIN HUMAN REGULAR (*BKC) 100 UNITS in SODIUM CHLORIDE 0.9% IV 99 ML 6.6 UNITS IV CONT (08:28)
[2020-11-02 08:29] LABS: Partial Thromboplastin Time 31.5 SECONDS (22.3-36.8)
[2020-11-02] MEDS: SODIUM BICARBONATE 8.4% 150 MEQ in WATER, STERILE FOR INJECTION 950 ML 125 MEQ IV CONT ×2 (08:40→17:31)
--- NOTE | 2020-11-02 09:09 | PM.IMPN ---
Progress Note: A&P Assessment and Plan (1) Diarrhea: Qualifiers: Diarrhea type: presumed infectious Qualified Code(s): R19.7 - Diarrhea, unspecified Code(s): R19.7 - Diarrhea, unspecified Status: Acute Assessment and Plan: POSSIBLE TO BE C DIFFICILE PATIENT HAS HAD IN THE PAST AND WITH SIGNIFICANT LEUKOCYTOSIS DAY 3 PO VANCOMYCIN (2) Colitis: Code(s): K52.9 - Noninfective gastroenteritis and colitis, unspecified Status: Acute Assessment and Plan: LIKELY TO BE C DIFFICILE COLITIS VS INFECTIOUS VS ISCHEMIC (THOUGH LACTIC ACID WNL) P.O. VANCOMYCIN (3) Leukocytosis: Qualifiers: Leukocytosis type: unspecified Qualified Code(s): D72.829 - Elevated white blood cell count, unspecified Code(s): D72.829 - Elevated white blood cell count, unspecified Status: Acute Assessment and Plan: APPEARS TO BE SECONDARY TO COLITIS LIKELY TO BE C DIFFICILE (4) RADHA (acute kidney injury): Code(s): N17.9 - Acute kidney failure, unspecified Status: Acute Assessment and Plan: HOLDING SPIRONOLACTONE AND TORSEMIDE AND ANTIHYPERTENSIVES IV FLUIDS RENAL ULTRASOUND NEGATIVE ISLAS CATHETER CREATININE TO 4.6, LIKELY DUE TO SEPTIC SHOCK (5) Morbid obesity: Code(s): E66.01 - Morbid (severe) obesity due to excess calories Status: Acute Assessment and Plan: ON CLEAR LIQUIDS CURRENTLY (6) Diabetes mellitus with hyperglycemia: Qualifiers: Diabetes mellitus type: type 2 Diabetes mellitus recruitment manager insulin use: with detention use Qualified Code(s): E11.65 - Type 2 diabetes mellitus with hyperglycemia; 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 Code(s): E11.65 - Type 2 diabetes mellitus with hyperglycemia Status: Acute Assessment and Plan: BASAL AND PREMEAL INSULIN AT ABOUT 50% OF HOME DOSES DUE TO DECREASED PO INTAKE INSULIN SLIDING SCALE NEEDED (7) Atrial fibrillation: Qualifiers: Atrial fibrillation type: unspecified chronic Qualified Code(s): I48.20 - Chronic atrial fibrillation, unspecified Code(s): I48.91 - Unspecified atrial fibrillation Status: Acute Assessment and Plan: RATE CONTROL AND ANTICOAGULATED (8) HTN (hypertension), malignant: Code(s): I10 - Essential (primary) hypertension Status: Chronic Assessment and Plan: BP NOTED TODAY ON MAXIMAL PRESSORS WITH ANTIHYPERTENSIVES HELD (9) DARIN (obstructive sleep apnea): Code(s): G47.33 - Obstructive sleep apnea (adult) (pediatric) Status: Acute Assessment and Plan: PATIENT REFUSES TO WEAR OXYGEN BY NASAL CANNULA AND IS NONCOMPLIANT WITH CPAP (10) Septic shock: Code(s): A41.9 - Sepsis, unspecified organism; R65.21 - Severe sepsis with septic shock Status: Acute (11) Metabolic encephalopathy: Code(s): G93.41 - Metabolic encephalopathy Status: Acute Subjective Date/time seen: 11/02/20 09:09 Interval history: Admitted 10/[address] c/w colitis, dilated GB, and moderate splenomegaly. 11/02: intubated and sedated. Review of Systems Review of Systems: ROS unobtainable: Yes unobtainable due to mental status (refuses) Exam Narrative: Exam Narrative: HEENT: PERRL, sclerae nonicteric, pharyngeal mucosa pink and intact NECK: No JVD seen CHEST: Clear to auscultation. Normal effort. HEART: NL S1/S2, regular, no murmur ABDOMEN: BS QUIET, PROTUBERANT AND SOFT WITHOUT RESPONSE TO PALPATION, no mass, no bruits EXTREMITIES: No cyanosis, edema, or clubbing NEUROLOGIC: CN intact and symmetric to inspection. MUSCULOSKELETAL: Tone symmetric. Bilateral AKA. PSYCH: NO RESPONSE TO TACTILE OR VERBAL STIMULI Objective Data Vital Signs Vital Signs: Vital Signs - 24 hr 11/01/20 14:00 11/01/20 17:15 11/01/20 17:20 Temperature 98.6 F 103.9 F H Pulse Rate 98 96 Respiratory Rate 20 22 H Blood Pressure 94/41 L 85/36 L 96/48 L
--- NOTE | 2020-11-02 09:11 | WPDCNINT ---
Assessment and Plan Assessment and plan (1) Septic shock: Code(s): A41.9 - Sepsis, unspecified organism; R65.21 - Severe sepsis with septic shock Status: Acute Assessment and Plan: septic shock could be related to colitis possible diff colitis. Diarrhea, metabolic acidosis - patient received adequate IV fluids, central line in place - on Levophed, vasopressin and Berhane-Synephrine maintain mean arterial pressure > 70 mmHg for adequate end organ perfusion - will insert arterial line - continue Zosyn and p.o. vanc - will add IV vancomycin - obtained panculture which is pending (2) Acute respiratory failure: Code(s): J96.00 - Acute respiratory failure, unspecified whether with hypoxia or hypercapnia Status: Acute Assessment and Plan: patient with metabolic encephalopathy likely related to uremia, septic shock, hypotension, infection - patient was intubated on 11/01/2020 - currently on CMV mode of ventilation, peep of 8 in 50% FiO2, adequate O2 sats, wean FiO2 to maintain O2 sats greater than 92% - chest x-ray and ABGs reviewed, ventilator adjusted - sedated with fentanyl and Versed infusion, maintain RASS of 0 to -2 (3) Acute renal failure superimposed on stage 3 chronic kidney disease: Qualifiers: Acute renal failure type: unspecified Qualified Code(s): N17.9 - Acute kidney failure, unspecified; N18.3 - Chronic kidney disease, stage 3 (moderate) Code(s): N17.9 - Acute kidney failure, unspecified; N18.3 - Chronic kidney disease, stage 3 (moderate) Status: Acute Assessment and Plan: acute on chronic kidney disease likely related to hypotension, septic shock, hypovolemia 2nd diarrhea, medications such as spironolactone, torsemide, losartan, Coreg which he takes at home - patient received 2.5 L IV fluid bolus, will give additional IV fluid bolus this morning - continue to monitor urine output, renal function electrolytes - 11/01/2020:renal ultrasound Showed normal kidneys and no hydronephrosis - nephrology has been consulted - rhabdomyolysis with CK levels off 5067, continue sodium bicarb infusion (4) Atrial fibrillation: Qualifiers: Atrial fibrillation type: unspecified Qualified Code(s): I48.91 - Unspecified atrial fibrillation Code(s): I48.91 - Unspecified atrial fibrillation Status: Acute Assessment and Plan: patient in AFib, rate controlled. On Eliquis at home which has been held - started patient on heparin infusion (5) Leukocytosis: Qualifiers: Leukocytosis type: other Qualified Code(s): D72.828 - Other elevated white blood cell count Code(s): D72.829 - Elevated white blood cell count, unspecified Status: Acute Assessment and Plan: significant leukocytosis, fevers, diarrhea, colitis on CT scan of the abdomen and pelvis - possible C diff colitis, patient on p.o. vancomycin - infectious disease has been consulted (6) Diarrhea: Qualifiers: Diarrhea type: presumed infectious Qualified Code(s): R19.7 - Diarrhea, unspecified Code(s): R19.7 - Diarrhea, unspecified Status: Acute Assessment and Plan: diarrhea after receiving antibiotics for pneumonia - patient has a history of C diff colitis x3 in the past - stool for C diff is pending - stool culture also pending (7) Colitis: Code(s): K52.9 - Noninfective gastroenteritis and colitis, unspecified Status: Acute Assessment and Plan: abdominal distension, diarrhea, nausea, vomiting - NG / OG tube to low intermittent suction - GI following the patient - possibility of C diff colitis given history (8) Morbid obesity: Code(s): E66.01 - Morbid (severe) obesity due to excess calories Status: Acute Assessment and Plan: chronic morbid obesity (9) Diabetes mellitus with hyperglycemia: Qualifiers: Diabetes mellitus usp insulin use: with 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
[2020-11-02] MEDS: SODIUM CHLORIDE 0.9% IV 500 ML IV CONT (09:23)
[2020-11-02 09:27] LABS: Band Neutrophils Percent 5 % (0-6); Burr Cells 2+ (NORMAL); Lymphocytes Absolute Manual 3.83 K/mm3 (1.1-4.5); Monocytes Absolute Manual 1.91 K/mm3 (0.1-0.90); Monocytes Percent Manual 5 % (3-9); Neutrophils Absolute Manual 32.55 K/mm3 (1.3-6.7); Neutrophils Percent Manual 80 % (46-73); Platelet Estimate Adequate (Adequate); Poikilocytosis 2+ (NORMAL); Total Cells Counted 100
[2020-11-02 09:39] LABS: Add Urine Microscopic? YES; Amorphous Sediment Urine Few; Appearance Urine Cloudy (Clear); Bacteria Urine Trace /hpf; Bilirubin Urine Negative (Negative); Blood Urine 3+ (Negative); Color Urine Amber (Yellow); Glucose Urine UA 2+ mg/dL (Negative); Ketones Urine Negative (Negative); Leukocyte Esterase Ur Negative LEU/UL (NEGATIVE); Mucus Urine Rare /lpf; Nitrate Urine Negative (Negative); Protein Urine 1+ mg/dL (Negative); Red Blood Cell Casts Urine Present /lpf; Squamous Epithelial Cell Urine Occasional /hpf (Few)
--- NOTE | 2020-11-02 09:41 | PM.CNNEP ---
Assessment and Plan Assessment and plan (1) RADHA (acute kidney injury): Code(s): N17.9 - Acute kidney failure, unspecified Status: Acute Assessment and Plan: Lester has acute kidney injury. His creatinine was normal in August. The patient has hypotension and shock and possibly sepsis which are probably all contributing to the rise in creatinine. His abdominal process could be contributing to the elevated creatinine as well. The patient is most likely pre renal but also probably has ATN. Renal ultrasound was negative. CPK is high at over 5000. He does have some blood in the urine but also has blood cells. Urine electrolytes are all pending at this point dialysis is not needed urgently. Because he is on 3 pressors it would be difficult to do dialysis anyway because his blood pressure still around 90. He would need continuous renal replacement therapy which is not an option at this hospital. However after volume resuscitation and antibiotics possibly his septic syndrome will improve and if he needs dialysis down the line may be he will be hemodynamically better such that he could tolerate intermittent hemodialysis. Will check a cortisol level. The patient is already getting a bicarb drip so were treating him if rhabdomyolysis is contributing to the kidney dysfunction. Discussed with Dr. Vasquez (2) Metabolic acidosis: Code(s): E87.2 - Acidosis Status: Acute Assessment and Plan: the patient has a metabolic acidosis with an anion gap. This is actually a mixed acid-base disorder. Looking at his blood gases it is pure metabolic acidosis with appropriate respiratory compensation. He has a baseline chronic metabolic alkalosis probably from his diarrhea and or diuretics. So the delta bicarb is 33-16 or 17. the delta anion gap is only 9 so he has an element of anion gap metabolic acidosis possibly from ketones and uremic poisons but also has a contribution from non anion gap metabolic acidosis from the diarrhea and possibly dilution. He also has a superimposed metabolic alkalosis that is his baseline. Will check beta hydroxybutyrate. The patient is getting an insulin drip to treat any ketones That are present. he is getting IV fluids with bicarb to treat the non anion gap metabolic acidosis and potential worsening of acidosis from dilution if he does not get the bicarb. (3) Septic shock: Code(s): A41.9 - Sepsis, unspecified organism; R65.21 - Severe sepsis with septic shock Status: Acute Assessment and Plan: The patient is on pressors and antibiotics. Cultures are pending. (4) Colitis: Code(s): K52.9 - Noninfective gastroenteritis and colitis, unspecified Status: Acute Assessment and Plan: The patient has a history of C diff. Cultures are pending. Id consultation has been requested (5) Metabolic encephalopathy: Code(s): G93.41 - Metabolic encephalopathy Status: Acute (6) Atrial fibrillation: Qualifiers: Atrial fibrillation type: unspecified chronic Qualified Code(s): I48.20 - Chronic atrial fibrillation, unspecified Code(s): I48.91 - Unspecified atrial fibrillation Status: Acute Assessment and Plan: heart rate is pretty well controlled (7) HTN (hypertension), malignant: Code(s): I10 - Essential (primary) hypertension Status: Chronic Assessment and Plan: blood pressure meds on hold because of his illness (8) DARIN (obstructive sleep apnea): Code(s): G47.33 - Obstructive sleep apnea (adult) (pediatric) Status: Acute Assessment and Plan: he is on the ventilator (9) Diabetes mellitus with hyperglycemia: Qualifiers: Diabetes mellitus type: type 2 Diabetes mellitus intermediate designer insulin use: with intermediate designer use Qualified Code(s): E11.65 - Type 2 diabetes mellitus with hyperglycemia; 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
[2020-11-02 09:44] LABS: Eosinophil Urine None Seen % (None Seen)
[2020-11-02 09:45] LABS: Hemoglobin A1C 8.6 % (<5.7)
[2020-11-02] MEDS: EPINEPHrine INJ 1 MG in DEXTROSE 5% IN WATER 250 ML 15.06 MG IV CONT (10:04)
[2020-11-02 10:07] LABS: Creatinine Urine 205.5 mg/dL
--- NOTE | 2020-11-02 10:07 | WPDPROCEDUR ---
Procedures Arterial Line Arterial Line Date: 11/02/20 Arterial Line Time: 09:50 Perfomed Emergently - Given emergent patient conditions, temporal constraints may have precluded informed consent: Yes Time Out Performed: Yes Patient Position: supine Emergency Services Professional Prep: sterile gown, sterile gloves, mask and hat Site: right and radial Site Prep: chlorhexidine and sterile drape Technique used: ultrasound-guided Size (Gauge): 20 Length: 4.4 cm Closure/Dressing: suture, transparent dressing, hemostatic product, antimicrobial product and securement product Patient tolerated procedure: well Complications: none
[2020-11-02 10:18] LABS: Potassium Urine Random 25.6 meq/L; Sodium Urine Random 43 meq/L
[2020-11-02 10:52] LABS: Glucose Point of Care 423 mg/dl (65-105)
[2020-11-02 10:52] LABS: Glucose Point of Care 359 mg/dl (65-105)
[2020-11-02 11:08] LABS: Lactic Acid Reflex 1.7 mmol/L (0.7-2.1)
[2020-11-02 11:52] LABS: Glucose Point of Care 368 mg/dl (65-105)
[2020-11-02] MEDS: PANTOPRAZOLE SODIUM IV 40 MG VIAL IV PUSH (12:07)
[2020-11-02 12:25] LABS: Alveolar/Arterial O2 Gradient 104.3 mmHg; Base Excess ABG -5.6 mEq/l (+/-2.0); Fractional Inspired Oxygen 40 %; HCO3 ABG 18.1 mEq/l (22.0-26.0); Oxygen Content ABG 20.4 %vol (16.0-22.0); Oxygen Saturation ABG 98.9 % (95.0-100.0); Oxyhemoglobin 97.7 % THb (90.0-100.0); PCO2 ABG 30.7 mmHg (35.0-45.0); PO2 ABG 145.6 mmHg (80.0-100.0); PO2 FiO2 Ratio Arterial Blood 3.64 %; Total Hemoglobin 14.7 g/dL (12.0-18.0); pH ABG 7.389 (7.350-7.450)
[2020-11-02 12:26] LABS: Device VENTILATOR; Site Drawn ARTLINE
[2020-11-02 12:27] LABS: Arterial Blood Gas Vent Mode CMV; Arterial Blood Gas Ventilator rate 22 /MIN
[2020-11-02 12:28] LABS: Arterial Blood Gas PEEP 8 cmH2O; Arterial Blood Gas Pressure Support 0 cmH2O; Arterial Blood Gas Tidal Volume 500 ml
[2020-11-02 12:34] LABS: Anion Gap 10 mmol/L (8-16); Blood Urea Nitrogen 95 mg/dL (9-20); Calcium 6.9 mg/dL (8.4-10.2); Carbon Dioxide 20 mmol/L (22-30); Chloride 101 mmol/L (98-107); Estimated CRCL calculation 30 ml/min; Estimated Glomerular Filt Rate 14; Glucose 426 mg/dL (75-110); Potassium 3.2 mmol/L (3.4-5.0); Sodium 131 mmol/L (137-145)
[2020-11-02 12:55] LABS: Glucose Point of Care 404 mg/dl (65-105)
[2020-11-02] MEDS: CENTRAL LINE FLUSH 10 ML IV PUSH ×2 (14:03→19:55)
[2020-11-02] MEDS: HEPARIN SODIUM 5,000 UNITS/ML VIAL 10000 UNITS IV PUSH (14:05)
[2020-11-02 14:10] LABS: Glucose Point of Care 397 mg/dl (65-105)
[2020-11-02] MEDS: IPRATROPIUM BR 0.02% INH SOLN 0.5 MG/2.5 ML VIAL INHALATION ×2 (14:21→20:53)
[2020-11-02] MEDS: LEVALBUTEROL NEB 1.25 MG/3 ML 0.63 MG INHALATION ×2 (14:21→20:54)
[2020-11-02] MEDS: EPINEPHrine INJ 4 MG in DEXTROSE 5% IN WATER 250 ML 38.1 MG IV CONT (14:29)
[2020-11-02 15:11] LABS: Glucose Point of Care 495 mg/dl (65-105)
[2020-11-02] MEDS: INSULIN HUMAN REGULAR (*BKC) 100 UNITS in SODIUM CHLORIDE 0.9% IV 99 ML 30 UNITS IV CONT ×2 (15:21→19:56)
[2020-11-02 16:05] LABS: Glucose Point of Care 395 mg/dl (65-105)
[2020-11-02 17:01] LABS: Glucose Point of Care 368 mg/dl (65-105)
[2020-11-02 17:40] LABS: Anion Gap 8 mmol/L (8-16); Blood Urea Nitrogen 90 mg/dL (9-20); Carbon Dioxide 22 mmol/L (22-30); Chloride 100 mmol/L (98-107); Estimated CRCL calculation 35 ml/min; Estimated Glomerular Filt Rate 17; Glucose 322 mg/dL (75-110); Sodium 130 mmol/L (137-145)
[2020-11-02 18:02] LABS: Glucose Point of Care 355 mg/dl (65-105)
[2020-11-02 18:35] LABS: Partial Thromboplastin Time 77.9 SECONDS (22.3-36.8)
[2020-11-02 18:59] LABS: Glucose Point of Care 305 mg/dl (65-105)
--- NOTE | 2020-11-02 20:11 | WPDGIPROGNO ---
Progress Note: A&P Additional Plan GI Adela for Dr. Gonzalez 02 Nov 2020 Patient's condition has worsened. Now intubated and on (max) pressors VSS soft. No guarding; not rigid Hct 44. WBC 38. INR 1.5. Cr 3.7. A/P A. Altered bowel habits-diarrhea; abnormal imaging-digestive; C diff: - Patient with recurrent C diff with rapid decompensation - C diff positive 31 Oct 2020 - Case d/w Dr. Vasquez and Dr. England - Currently on Vanco 250 NG q 6 - Added Dificid and IV Flagyl - Cnsult Surgery for possible colectomy - Does patient need IV Zosyn and Vanco? B. Abnormal A/P: likely due to illness and decresed renal fx; observe. C. Abnormal imaging-biliary: GS; incidental finding. Further recommendations per Dr. Gonzalez. Thanks, [facility] [phone] Subjective Date/time seen: 11/02/20 20:11 Objective Data Vital Signs Vital Signs: Vital Signs - 24 hr 11/01/20 22:41 11/01/20 22:43 11/01/20 23:11 Temperature 39.6 C H 39.4 C H Pulse Rate 97 Respiratory Rate Blood Pressure 80/44 L Pulse Oximetry 11/01/20 23:29 11/01/20 23:30 11/02/20 00:00 Temperature Pulse Rate 90 89 94 Respiratory Rate Blood Pressure 90/41 L Pulse Oximetry 97 11/02/20 00:15 11/02/20 00:20 11/02/20 00:29 Temperature 39.2 C H Pulse Rate 89 Respiratory Rate 26 H Blood Pressure 106/49 L Pulse Oximetry 11/02/20 00:31 11/02/20 00:35 11/02/20 01:05 Temperature Pulse Rate 98 Respiratory Rate 25 H Blood Pressure 104/39 L 100/37 L 121/52 L Pulse Oximetry 100 11/02/20 01:06 11/02/20 01:07 11/02/20 03:03 Temperature Pulse Rate 93 83 90 Respiratory Rate 29 H 28 H Blood Pressure Pulse Oximetry 96 11/02/20 04:00 11/02/20 05:32 11/02/20 05:40 Temperature Pulse Rate 86 94 Respiratory Rate Blood Pressure 96/76 L Pulse Oximetry 99 11/02/20 06:00 11/02/20 06:15 11/02/20 06:23 Temperature 39.1 C H Pulse Rate 92 Respiratory Rate 27 H Blood Pressure 92/43 L 88/37 L 86/40 L Pulse Oximetry 99 11/02/20 06:24 11/02/20 06:26 11/02/20 06:54 Temperature 39.2 C H 39.1 C H Pulse Rate 88 Respiratory Rate 22 H Blood Pressure Pulse Oximetry 97 11/02/20 07:37 11/02/20 08:00 11/02/20 08:21 Temperature 38.4 C H Pulse Rate 91 Respiratory Rate 22 H Blood Pressure 79/35 L 86/38 L 94/39 L Pulse Oximetry 100 11/02/20 08:22 11/02/20 08:30 11/02/20 08:52 Temperature Pulse Rate 93 97 Respiratory Rate Blood Pressure 91/34 L 84/28 L Pulse Oximetry 100 11/02/20 09:37 11/02/20 10:00 11/02/20 10:04 Temperature Pulse Rate 92 95 Respiratory Rate 28 H 22 H Blood Pressure 100/53 L 115/49 L Pulse Oximetry 100 11/02/20 11:03 11/02/20 11:13 11/02/20 11:32 Temperature Pulse Rate 91 Respiratory Rate Blood Pressure 81/38 L 104/47 L Pulse Oximetry 100 11/02/20 11:51 11/02/20 12:00 11/02/20 14:00 Temperature Pulse Rate 94 91 Respiratory Rate 22 H Blood Pressure 115/48 L 90/53 L Pulse Oximetry 100 11/02/20 14:22 11/02/20 14:25 11/02/20 14:29 Temperature Pulse Rate 95 86 Respiratory Rate 22 H Blood Pressure 90/53 L Pulse Oximetry 100 11/02/20 14:38 11/02/20 14:53 11/02/20 15:00 Temperature Pulse Rate 91 Respiratory Rate 22 H Blood Pressure 138/56 L 108/50 L Pulse Oximetry 11/02/20 15:09 11/02/20 15:19 11/02/20 16:00 Temperature 38.8 C H Pulse Rate 94 Respiratory Rate 22 H Blood Pressure 100/46 L 132/57 L 122/55 L Pulse Oximetry 100 11/02/20 17:01 11/02/20 17:05 11/02/20 18:00 Temperature Pulse Rate 88 97 Respiratory Rate 22 H Blood Pressure 123/54 L 103/53 L Pulse Oximetry 100 100 11/02/20 18:07 11/02/20 18:52 11/02/20 18:55 Temperature 38.8 C H Pulse Rate Respiratory Rate Blood Pressure 98/47 L 101/49 L Pulse Oximetry 11/02/20 19:57 Temperature Pulse Rate Respiratory Rate Blood Pressure 9
--- NOTE | 2020-11-02 20:56 | WPDCN ---
Assessment and Plan Additional Plan 1. Sepsis secondary to Clostridium difficile colitis. Stool for C diff toxin was positive. CT scan of the abdomen and pelvis showed inflammatory changes consistent with colitis extending from the transverse colon to the sigmoid colon. The patient also showing systemic manifestation of the colitis including septic shock associated with acute renal failure. White count is greater than 15,000. agree a combination of Dificid p.o. and Flagyl IV. Patient would require general surgery evaluation and it is possible that he may need subtotal colectomy if no improvement. 2. Septic shock most likely secondary to Clostridium difficile colitis. Secondary bacterial infection is always a concern with an inflamed colon. Patient has been empirically started on Zosyn and vancomycin IV. Blood cultures are so far negative day 2. I am concerned with a combination of Zosyn and vancomycin which has a higher rate of nephrotoxicity in a patient with [place] in acute renal failure. I will stop the vancomycin and continue Zosyn for now. Follow up on blood cultures and in 24-48 hours if cultures continue to be negative. Zosyn. 3. Acute renal failure most likely secondary to septic shock. Avoid nephrotoxic agents including vancomycin and specially the combination of Zosyn and vancomycin. 4. Respiratory failure most likely secondary to ongoing sepsis. 5. Date of service 11/02/2020. HPI Data of Consult Date/Time: 11/02/20 20:56 Requesting Physician: Prasanth Dubois MD Primary Care Provider: Beltran Reyes, Consult Narrative Narrative: Lester Nguyễn is a 60 year old male With significant past medical history for type 2 diabetes, diabetic foot infection requiring CC left AKA and right BKA, congestive heart failure, peripheral vascular disease, obesity and obstructive sleep apnea presented to the emergency room on 11/01/2020 due to progressive diarrhea that is been going on for about 2 weeks. Apparently patient recently had completed antibiotic therapy for a lower respiratory tract infection. CT scan of the abdomen showed transverse colitis extending into the sigmoid colon. White count is at 38,000 and stool for C diff toxin was positive. Patient subsequently progressed into sepsis requiring intubation and pressor support. I was requested to see him for further antibiotics management. Patient is currently in acute renal failure and respiratory failure. Patient is currently on Zosyn, vancomycin IV, Flagyl IV and and Dificid. Patient is nonverbal and intubated. Review of Systems Review of Systems: Narrative: Patient is intubated and sedated therefore unable to obtain review of systems [facility] Past Medical History Medical History (Updated 11/02/20 @ 09:57 by Roger Blankenship MD) Acute renal failure superimposed on stage 3 chronic kidney disease The patient had temporary dialysis x3 at 1 time Acute worsening of stage 3 chronic kidney disease Atrial fibrillation On chronic anticoagulation with Eliquis Atrial fibrillation C. difficile colitis C. difficile colitis Chronic kidney disease, stage 3 Diabetes mellitus type 2 in obese Diabetes mellitus with hyperglycemia Diabetic nephropathy Hands Diabetic peripheral neuropathy Diastolic dysfunction Last echocardiogram March 2018 demonstrated normal EF of 65-70 with moderate LVH and severe left atrial enlargement GI bleed HTN (hypertension), malignant Hyperlipidemia Metabolic acidosis Morbid obesity Obstructive sleep apnea treated with BiPAP patient is noncompliant with his BiPAP Peripheral vascular disease Surgical History Surgical History History of appendectomy History of bilateral carpal tunnel release History of left above knee amputation History of right below knee amputation History of tonsillectomy and adenoidectomy Family History Family History (Reviewed 11/02/20 @ 09:49 by Roger العلي
[2020-11-02] MEDS: FIDAXOMICIN 200 MG TABLET XX (21:27)
[2020-11-02] MEDS: metroNIDAZOLE 500 MG/ISO 100ML 500 MG/100 ML BAG 100 MG IVPB (21:27)
[2020-11-02] MEDS: HEPARIN SOD/D5W 100 UNITS/ML 25,000 UNITS/250 ML BAG 20 UNITS IV CONT (21:28)
[2020-11-03] VITALS (73 sets, daily range): BP systolic 87–134; BP diastolic 43–60; PULSE 95–132; RESP 20–23; TEMP 39.3–39.9; O2SAT 99–100; BMI 63.7; BMI 50.3
[2020-11-03] MEDS: NOREPINEPHRINE 8 MG/D5W 250 ML 8 MG/250 ML BAG 56.25 MG IV CONT ×5 (01:09→19:15)
[2020-11-03] MEDS: INSULIN HUMAN REGULAR (*BKC) 100 UNITS in SODIUM CHLORIDE 0.9% IV 99 ML 15 UNITS IV CONT (01:11)
[2020-11-03 01:38] LABS: Anion Gap 7 mmol/L (8-16); Blood Urea Nitrogen 83 mg/dL (9-20); Calcium 6.9 mg/dL (8.4-10.2); Carbon Dioxide 24 mmol/L (22-30); Chloride 99 mmol/L (98-107); Estimated CRCL calculation 44 ml/min; Estimated Glomerular Filt Rate 22; Glucose 162 mg/dL (75-110); Potassium 2.9 mmol/L (3.4-5.0); Sodium 130 mmol/L (137-145)
[2020-11-03] MEDS: IPRATROPIUM BR 0.02% INH SOLN 0.5 MG/2.5 ML VIAL INHALATION ×4 (02:00→19:55)
[2020-11-03] MEDS: LEVALBUTEROL NEB 1.25 MG/3 ML 0.63 MG INHALATION ×4 (02:00→19:55)
--- NOTE | 2020-11-03 02:17 | PC.NURSE ---
11/01/20: 1945: Patient received into ICU 2 after a rapid response. Patient received to this nurse on continuous bipap and only slightly arousable upon deep sternal rub. Patient's systolic blood pressures in the 70's at that time. Report received from Jackie BUSH MD notified. Patient intubated and central line placed for vasopressor administration. ED physician also present in the room during intubation and central line placement.
[2020-11-03 02:25] LABS: Partial Thromboplastin Time 67.4 SECONDS (22.3-36.8)
[2020-11-03] MEDS: SODIUM BICARBONATE 8.4% 150 MEQ in WATER, STERILE FOR INJECTION 950 ML 125 MEQ IV CONT ×3 (02:55→20:35)
[2020-11-03] MEDS: HEPARIN SODIUM 5,000 UNITS/ML VIAL 5000 UNITS IV PUSH (02:55)
[2020-11-03 03:08] LABS: Glucose Point of Care 172 mg/dl (65-105)
[2020-11-03 03:08] LABS: Glucose Point of Care 238 mg/dl (65-105)
[2020-11-03 03:08] LABS: Glucose Point of Care 178 mg/dl (65-105)
[2020-11-03 03:08] LABS: Glucose Point of Care 233 mg/dl (65-105)
[2020-11-03 03:08] LABS: Glucose Point of Care 185 mg/dl (65-105)
[2020-11-03 03:08] LABS: Glucose Point of Care 198 mg/dl (65-105)
[2020-11-03 03:08] LABS: Glucose Point of Care 205 mg/dl (65-105)
[2020-11-03] MEDS: metroNIDAZOLE 500 MG/ISO 100ML 500 MG/100 ML BAG 100 MG IVPB ×4 (04:16→20:36)
[2020-11-03 05:25] LABS: Alveolar/Arterial O2 Gradient 83.7 mmHg; Base Excess ABG -0.7 mEq/l (+/-2.0); Carboxyhemoglobin 0.1 % THb (0-2.0); Fractional Inspired Oxygen 30 %; HCO3 ABG 22.1 mEq/l (22.0-26.0); Methemoglobin ABG 0.6 %THb (0-1.5); Oxygen Content ABG 24.8 %vol (16.0-22.0); Oxygen Saturation ABG 97.4 % (95.0-100.0); Oxyhemoglobin 96.5 % THb (90.0-100.0); PCO2 ABG 32.4 mmHg (35.0-45.0); PO2 ABG 92.1 mmHg (80.0-100.0); PO2 FiO2 Ratio Arterial Blood 3.07 %; Reduced Hemoglobin 2.8 %THb (0-5.0); Total Hemoglobin 18.3 g/dL (12.0-18.0); pH ABG 7.452 (7.350-7.450)
[2020-11-03 05:26] LABS: Site Drawn ARTLINE
[2020-11-03 05:27] LABS: Device VENTILATOR
[2020-11-03 05:28] LABS: Arterial Blood Gas PEEP 8 cmH2O; Arterial Blood Gas Tidal Volume 500 ml; Arterial Blood Gas Vent Mode CMV; Arterial Blood Gas Ventilator rate 22 /MIN
[2020-11-03] MEDS: CENTRAL LINE FLUSH 10 ML IV PUSH ×3 (05:54→22:08)
[2020-11-03 06:12] LABS: Hemoglobin 15.1 g/dL (14.0-18.0); Mean Corpuscular HGB Conc 32.8 g/dl (32-36); Mean Corpuscular Volume 82.1 fl (80-100); Mean Platelet Volume 9.2 fl (7.4-10.4); Platelet Count Result 221 k/mm3 (150-375); Red Cell Distribution Width 15.5 % (11.5-14.5); White Blood Count 30.5 K/mm3 (4.5-10.0)
[2020-11-03 06:21] LABS: Lactic Acid Reflex 1.9 mmol/L (0.7-2.1)
[2020-11-03] MEDS: INSULIN HUMAN REGULAR (*BKC) 100 UNITS in SODIUM CHLORIDE 0.9% IV 99 ML 20.9 UNITS IV CONT (06:26)
[2020-11-03 06:44] LABS: Alanine Aminotransferase 26 U/L (4-50); Albumin Level 2.4 g/dL (3.5-5.1); Alkaline Phosphatase 127 U/L (38-126); Anion Gap 7 mmol/L (8-16); Aspartate Amino Transferase 133 U/L (17-59); Bilirubin,Total 0.5 mg/dL (0.2-1.3); Blood Urea Nitrogen 82 mg/dL (9-20); CRP 23.2 mg/dL (<1.0); Carbon Dioxide 25 mmol/L (22-30); Chloride 95 mmol/L (98-107); Estimated CRCL calculation 48 ml/min; Estimated Glomerular Filt Rate 24; Glucose 161 mg/dL (75-110); Phosphorus 2.8 mg/dL (2.5-4.5); Potassium 2.9 mmol/L (3.4-5.0); Sodium 127 mmol/L (137-145)
[2020-11-03 06:46] LABS: Band Neutrophils Percent 6 % (0-6); Lymphocytes Absolute Manual 3.66 K/mm3 (1.1-4.5); Lymphocytes Percent Manual 12 % (18-44); Monocytes Percent Manual 20 % (3-9); Neutrophils Absolute Manual 20.74 K/mm3 (1.3-6.7); Neutrophils Percent Manual 62 % (46-73); Total Cells Counted 100
[2020-11-03 06:47] LABS: Platelet Estimate Adequate (Adequate)
[2020-11-03 06:49] LABS: Atypical Lymphocytes Present
[2020-11-03 07:19] LABS: Creatine Kinase 7973 U/L (55-170)
[2020-11-03] MEDS: MINERAL OIL/WHITE PETROLATUM OINTMENT 1 APPLIC EACH EYE ×2 (08:02→20:27)
[2020-11-03] MEDS: FIDAXOMICIN 200 MG TABLET XX ×2 (08:02→20:38)
[2020-11-03] MEDS: PANTOPRAZOLE SODIUM IV 40 MG VIAL IV PUSH (08:32)
--- NOTE | 2020-11-03 09:15 | PM.CNGS ---
Assessment and Plan Assessment and plan (1) C. difficile colitis: Code(s): A04.72 - Enterocolitis due to Clostridium difficile, not specified as recurrent Status: Acute Assessment and Plan: The patient presents with C. Diff colitis with evidence of wall thickening of the transverse to sigmoid colon on the CT scan. He also has presented with septic shock, respiratory failure, and acute on chronic renal failure. There has been slight improvement in his vasopressor requirements overnight and his WBC count is at 30,500 today. Considering the patient's severe sepsis with hypotension and vasopressor requirements, multiple co-morbidities, anticoagulation, and morbid obesity, he would be an extremely high risk surgical candidate with a very low chance of surviving surgery at this time. Dr. Houston has evaluated the patient separately and discussed the patient's treatment and surgical options with his brother, who also feels that the patient would not want an ostomy. At this time, we would recommend to continue with medical management and supportive care. Continue IV and oral antibiotics per ID, NG tube decompression, and bowel rest. We will continue to follow the patient closely. Thank you for allowing us to see the patient in consultation. (2) Septic shock: Code(s): A41.9 - Sepsis, unspecified organism; R65.21 - Severe sepsis with septic shock Status: Acute Assessment and Plan: Septic shock with severe hypotension requiring vasopressor support, likely secondary to C. diff colitis, above. ID following, on fidaxomicin, oral vancomycin, IV Flagyl and Zosyn. Initial blood cultures NGTD, repeat blood cultures pending. C. Diff positive. Stool studies pending. Coming down on vasopressor needs overnight and into this morning. Would continue to wean vasopressors as tolerated. WBC down some to 30,000 today. Lactate normal. Continue to closely monitor and trend labs. Agree with abx per ID recommendations. (3) Acute respiratory failure: Code(s): J96.00 - Acute respiratory failure, unspecified whether with hypoxia or hypercapnia Status: Acute Assessment and Plan: Intubated in the ICU. Management for ventilator and weaning per Restoration Officer. (4) Metabolic acidosis: Code(s): E87.2 - Acidosis Status: Acute (5) Acute renal failure superimposed on stage 3 chronic kidney disease: Qualifiers: Acute renal failure type: unspecified Qualified Code(s): N17.9 - Acute kidney failure, unspecified; N18.3 - Chronic kidney disease, stage 3 (moderate) Code(s): N17.9 - Acute kidney failure, unspecified; N18.3 - Chronic kidney disease, stage 3 (moderate) Status: Acute Assessment and Plan: Likely multifactorial from septic shock with hypotension, infection, and diarrhea. Renal ultrasound negative. CK levels elevated and increasing today - he is receiving a bicarb infusion and Nephrology is following. They do not feel he needs urgent hemodialysis at this point, but if this is required in the setting of his hypotension, then he may need CRRT. Monitor labs. (6) Atrial fibrillation: Qualifiers: Atrial fibrillation type: unspecified Qualified Code(s): I48.91 - Unspecified atrial fibrillation Code(s): I48.91 - Unspecified atrial fibrillation Status: Acute Assessment and Plan: Fairly rate-controlled on my exam. Takes Eliquis for this, which is on hold. He is currently on a Heparin drip while Eliquis is on hold. 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 (8) Morbid obesity: Code(s): E66.01
--- NOTE | 2020-11-03 09:23 | WPDINTPN ---
Progress Note: A&P Assessment and Plan (1) Septic shock: Code(s): A41.9 - Sepsis, unspecified organism; R65.21 - Severe sepsis with septic shock Status: Acute Assessment and Plan: septic shock could be related to colitis possible diff colitis. Diarrhea, metabolic acidosis - patient received adequate IV fluids, central line in place - on Levophed, vasopressin and Berhane-Synephrine maintain mean arterial pressure > 70 mmHg for adequate end organ perfusion. epinephrine has been turned off - arterial line placed on 11/02/2020 - appreciate GI and infectious disease evaluation and recommendations. Continue Zosyn, p.o. vancomycin and fidaxomicin - 10/31 stool was positive C diff -10/31: blood cultures were negative x2 -10/31: stool cultures pending -11/01: repeat blood cultures, urine and sputum cultures pending (2) Acute respiratory failure: Code(s): J96.00 - Acute respiratory failure, unspecified whether with hypoxia or hypercapnia Status: Acute Assessment and Plan: patient with metabolic encephalopathy likely related to uremia, septic shock, hypotension, infection - patient was intubated on 11/01/2020 - currently on CMV mode of ventilation, peep of 8 in 30% FiO2, adequate O2 sats, wean FiO2 to maintain O2 sats greater than 92% - chest x-ray and ABGs reviewed, ventilator adjusted - sedated with fentanyl and Versed infusion, maintain RASS of 0 to -2 (3) Acute renal failure superimposed on stage 3 chronic kidney disease: Qualifiers: Acute renal failure type: unspecified Qualified Code(s): N17.9 - Acute kidney failure, unspecified; N18.3 - Chronic kidney disease, stage 3 (moderate) Code(s): N17.9 - Acute kidney failure, unspecified; N18.3 - Chronic kidney disease, stage 3 (moderate) Status: Acute Assessment and Plan: acute on chronic kidney disease likely related to hypotension, septic shock, hypovolemia 2nd diarrhea, medications such as spironolactone, torsemide, losartan, Coreg which he takes at home - patient received adequate fluids - 11/01/2020:renal ultrasound Showed normal kidneys and no hydronephrosis - appreciate Nephrology evaluation recommendation - with has been improving and so has the BUN and creatinine - rhabdomyolysis, worsening CK levels, continue sodium bicarb infusion (4) Atrial fibrillation: Qualifiers: Atrial fibrillation type: unspecified Qualified Code(s): I48.91 - Unspecified atrial fibrillation Code(s): I48.91 - Unspecified atrial fibrillation Status: Acute Assessment and Plan: patient in AFib, rate controlled. On Eliquis at home which has been held - continue heparin infusion (5) Leukocytosis: Qualifiers: Leukocytosis type: other Qualified Code(s): D72.828 - Other elevated white blood cell count Code(s): D72.829 - Elevated white blood cell count, unspecified Status: Acute Assessment and Plan: significant leukocytosis, fevers, diarrhea, colitis on CT scan of the abdomen and pelvis - possible C diff colitis, patient on p.o. vancomycin, metronidazole and fidaxomicin. also on Zosyn IV - leukocytosis improving - ID following the patient (6) Colitis: Code(s): K52.9 - Noninfective gastroenteritis and colitis, unspecified Status: Acute Assessment and Plan: abdominal distension, diarrhea, nausea, vomiting - NG / OG tube to low intermittent suction - GI following the patient continue p.o. vancomycin, fidaxomicin, IV metronidazole - patient has a history of C diff colitis x3 in the past -10/31: stool for C diff is positive - stool culture also pending (7) Morbid obesity: Code(s): E66.01 - Morbid (severe) obesity due to excess calories Status: Acute Assessment and Plan: chronic morbid obesity (8) Diabetes mellitus with hyperglycemia: Qualifiers: Diabetes mellitus type: type 2 Diabetes mellitus watermaster insulin use: with
[2020-11-03] MEDS: HEPARIN SOD/D5W 100 UNITS/ML 25,000 UNITS/250 ML BAG 22 UNITS IV CONT (09:43)
[2020-11-03 09:47] LABS: Partial Thromboplastin Time 108.2 SECONDS (22.3-36.8)
--- NOTE | 2020-11-03 10:02 | PM.IMPN ---
Progress Note: A&P Assessment and Plan (1) Septic shock: Code(s): A41.9 - Sepsis, unspecified organism; R65.21 - Severe sepsis with septic shock Status: Acute Assessment and Plan: septic shock could be related to colitis possible diff colitis. - patient received adequate IV fluids, central line in place - on Levophed, vasopressin and Berhane-Synephrine maintain mean arterial pressure > 70 mmHg for adequate end organ perfusion. epinephrine has been turned off - arterial line placed on 11/02/2020 - appreciate GI and infectious disease evaluation and recommendations. Continue Zosyn, p.o. vancomycin and fidaxomicin - 10/31 stool was positive C diff -10/31: blood cultures were negative x2 -10/31: stool cultures pending -11/01: repeat blood cultures, urine and sputum cultures pending (2) Acute respiratory failure: Code(s): J96.00 - Acute respiratory failure, unspecified whether with hypoxia or hypercapnia Status: Acute Assessment and Plan: patient with metabolic encephalopathy likely related to uremia, septic shock, hypotension, infection - patient was intubated on 11/01/2020 - currently on CMV mode of ventilation, peep of 8 in 30% FiO2, adequate O2 sats, wean FiO2 to maintain O2 sats greater than 92% - chest x-ray and ABGs reviewed, - sedated with fentanyl and Versed infusion (3) Acute renal failure superimposed on stage 3 chronic kidney disease: Qualifiers: Acute renal failure type: unspecified Qualified Code(s): N17.9 - Acute kidney failure, unspecified; N18.3 - Chronic kidney disease, stage 3 (moderate) Code(s): N17.9 - Acute kidney failure, unspecified; N18.3 - Chronic kidney disease, stage 3 (moderate) Status: Acute Assessment and Plan: acute on chronic kidney disease likely related to hypotension, septic shock, hypovolemia 2nd diarrhea, medications such as spironolactone, torsemide, losartan, Coreg which he takes at home - patient received adequate fluids - 11/01/2020:renal ultrasound Showed normal kidneys and no hydronephrosis - appreciate Nephrology evaluation recommendation - creatinine and BUN improved - rhabdomyolysis, worsening CK levels, continue sodium bicarb infusion (4) Atrial fibrillation: Qualifiers: Atrial fibrillation type: unspecified Qualified Code(s): I48.91 - Unspecified atrial fibrillation Code(s): I48.91 - Unspecified atrial fibrillation Status: Acute Assessment and Plan: patient in AFib, rate controlled. On Eliquis at home which has been held - continue heparin infusion (5) Colitis: Code(s): K52.9 - Noninfective gastroenteritis and colitis, unspecified Status: Acute Assessment and Plan: C diff colitis - NG / OG tube to low intermittent suction - GI, ID and surgery following the patient continue p.o. 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 - continue insulin infusion Additional Plan DVT prophylaxis - on heparin infusion Stress ulcer prophylaxis - PPI Nutrition - NPO Code Status - Full Code Subjective Date/time seen: 11/03/20 Overnight events reviewed. Afebrile Continues to be on mechanical ventilation Continues to be on severalvasopressors Vitals ac
[2020-11-03] MEDS: VASOPRESSIN INJ 100 UNITS in DEXTROSE 5% 95 ML IV CONT (10:50)
[2020-11-03 13:00] LABS: Glucose Point of Care 145 mg/dl (65-105)
[2020-11-03 13:00] LABS: Glucose Point of Care 162 mg/dl (65-105)
[2020-11-03 13:00] LABS: Glucose Point of Care 186 mg/dl (65-105)
[2020-11-03 13:00] LABS: Glucose Point of Care 209 mg/dl (65-105)
[2020-11-03 13:00] LABS: Glucose Point of Care 127 mg/dl (65-105)
[2020-11-03 13:00] LABS: Glucose Point of Care 133 mg/dl (65-105)
[2020-11-03 13:00] LABS: Glucose Point of Care 163 mg/dl (65-105)
[2020-11-03 13:00] LABS: Glucose Point of Care 183 mg/dl (65-105)
[2020-11-03 13:00] LABS: Glucose Point of Care 110 mg/dl (65-105)
[2020-11-03 13:47] LABS: Anion Gap 7 mmol/L (8-16); Blood Urea Nitrogen 72 mg/dL (9-20); Calcium 6.8 mg/dL (8.4-10.2); Carbon Dioxide 25 mmol/L (22-30); Chloride 95 mmol/L (98-107); Estimated CRCL calculation 48 ml/min; Estimated Glomerular Filt Rate 29; Glucose 181 mg/dL (75-110); Potassium 2.9 mmol/L (3.4-5.0); Sodium 127 mmol/L (137-145)
[2020-11-03] MEDS: INSULIN HUMAN REGULAR (*BKC) 100 UNITS in SODIUM CHLORIDE 0.9% IV 99 ML 15.9 UNITS IV CONT (13:53)
--- NOTE | 2020-11-03 16:13 | WPDGIPROGNO ---
Progress Note: A&P Assessment and Plan (1) C. difficile colitis: Code(s): A04.72 - Enterocolitis due to Clostridium difficile, not specified as recurrent Status: Acute Assessment and Plan: severe C diff with septic shock continue on oral vanco, dificid and iv flagyl ID to see, patient is still on zosyn (consider to discontinue if no other source of infection is found) surgery also involved but family member does not want colectomy daily KUB, npo status prognosis is guarded (2) Septic shock: Code(s): A41.9 - Sepsis, unspecified organism; R65.21 - Severe sepsis with septic shock Status: Acute Assessment and Plan: still on pressors (3) Acute respiratory failure: Code(s): J96.00 - Acute respiratory failure, unspecified whether with hypoxia or hypercapnia Status: Acute Assessment and Plan: by eyedotter (4) Metabolic encephalopathy: Code(s): G93.41 - Metabolic encephalopathy Status: Acute (5) Diarrhea: Qualifiers: Diarrhea type: presumed infectious Qualified Code(s): R19.7 - Diarrhea, unspecified Code(s): R19.7 - Diarrhea, unspecified Status: Acute (6) Leukocytosis: Qualifiers: Leukocytosis type: unspecified Qualified Code(s): D72.829 - Elevated white blood cell count, unspecified Code(s): D72.829 - Elevated white blood cell count, unspecified Status: Acute Assessment and Plan: continue to monitor (7) RADHA (acute kidney injury): Code(s): N17.9 - Acute kidney failure, unspecified Status: Acute Assessment and Plan: slowly improving (8) Metabolic acidosis: Code(s): E87.2 - Acidosis Status: Acute (9) Morbid obesity: Code(s): E66.01 - Morbid (severe) obesity due to excess calories Status: Acute (10) Diabetes mellitus with hyperglycemia: Qualifiers: Diabetes mellitus type: type 2 Diabetes mellitus custodial insulin use: with custodial use Qualified Code(s): E11.65 - Type 2 diabetes mellitus with hyperglycemia; 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 Review of Systems Review of Systems: All systems reviewed & are unremarkable except as noted in HPI and below Exam Const: General: comfortable HENMT: General nose exam: Normal nares present Other: ETT in place Eyes: Sclera: sclerae normal Other: pupils are reactive but sluggish Neck: Neck: supple Thyroid: thyroid normal Lymphatic: lymphadenopathy not noted Resp: Effort & Inspection: normal respiratory effort Auscultation: diminished lung sounds Other: decreased at bases, good air entry Cardio: Rate: tachycardic Rhythm: abnormal rhythm irregularly irregular GI: Inspection: distended GI Palp: Yes Soft to palpation and No Tenderness to palpation present (GI) Auscultation: abnormal bowel sounds ( hypoactive bowel sounds) Other: morbid obesity : Other: Abarca catheter in place Urinary Catheter: Urinary Catheter: patent and draining and urine dark Skin: General skin exam: normal color and no rashes or lesions noted Neuro: Other: patient is intubated, sedated, does not open his eyes or follow simple commands Extrem: General: normal to inspection and edema Other: left AKA right BKA Psych: Other: unable to assess at this time Objective Data Vital Signs Vital Signs: Vital Signs - 24 hr 11/02/20 17:01 11/02/20 17:05 11/02/20 18:00 Temperature Pulse Rate 88 97 Respiratory Rate 22 H Blood Pressure 123/54 L 103/53 L Pulse Oximetry 100 100 11/02/20 18:07 11/02/20 18:52 11/02/20 18:55 Temperature 102 F H Pulse Rate Respiratory Rate Blood Pressure 98/47 L 101/49 L Pulse Oximetry 11/02/20 19:57 11/02/20 20:00 11/02/20 20:30
--- NOTE | 2020-11-03 16:19 | P.PNNP_ITS ---
Progress Note: A&P Assessment and Plan (1) RADHA (acute kidney injury): Code(s): N17.9 - Acute kidney failure, unspecified Status: Acute Assessment and Plan: * due to ATN from hemodynamic instability/shock, prerenal factors, and infection/sepsis * renal ultrasound negative * CPK elevated and trending up * however, renal function improving in association with better urine output * no need for DAIRY NUTRITION SPECIALIST/dialysis at this time but he certainly remains at risk * follow electrolytes, creatinine, and urine output (2) Metabolic acidosis: Code(s): E87.2 - Acidosis Status: Acute Assessment and Plan: * secondary to RADHA/ARF and associated issues with diarrhea and dilution * on bicarbonate fluids to compensate * follow trend (3) Septic shock: Code(s): A41.9 - Sepsis, unspecified organism; R65.21 - Severe sepsis with septic shock Status: Acute Assessment and Plan: * remains on vasopressor therapy * follow culture date * continue broad spectrum antibiotics (4) HTN (hypertension), malignant: Code(s): I10 - Essential (primary) hypertension Status: Chronic Assessment and Plan: * BP medications on hold due to #3 * follow hemodynamics (5) Diabetes mellitus with hyperglycemia: Qualifiers: Diabetes mellitus superintendent terminal insulin use: with correction use Diabetes m ellitus type: type 2 Qualified Code(s): E11.65 - Type 2 diabetes mellitus with hyperglycemia; Z79.4 - terminal gauger (current) use of insulin Code(s): E11.65 - Type 2 diabetes mellitus with hyperglycemia Status: Acute Assessment and Plan: * follow accuchecks * on insuling gtt Will continue to follow. Subjective Date/time seen: 11/03/20 16:19 Chart reviewed -- remains intubated and on pressor therapy to maintain MAP; urine output has increased and renal function has improved as well; however, CPK is trending up; febrile; no apparent distress noted; no new issues/events overnight or earlier this AM. Exam Narrative: Exam Narrative: General: large male in NAD Heart: normal S1 and S2; no rub Lungs: coarse and decreased at bases Abdomen: soft, nontender, nondistended, hypoactive bowel sounds Extremities: no cyanosis or clubbing; no edema; left AKA and right BKA Skin: warm and dry Objective Data Vital Signs Vital Signs: Vital Signs Temp Pulse Resp BP Pulse Ox 11/03/20 16:00 39.9 C H 112 H 21 H 129/59 L 100 11/03/20 15:56 129/59 L 11/03/20 15:55 105 H 20 129/59 L 11/03/20 15:54 129/59 L 11/03/20 15:41 115/57 L 11/03/20 15:24 39.9 C H 11/03/20 15:03 105 H 20 11/03/20 15:00 88/46 L 11/03/20 14:56 114 H 100 11/03/20 14:55 111 H 20 11/03/20 14:00 39.8 C H 109 H 20 109/55 L 100 11/03/20 13:56 115/56 L 11/03/20 13:55 105 H 20 115/56 L 11/03/20 13:54 115/56 L 11/03/20 12:34 95/46 L 11/03/20 12:09 132 H 23 H 100/54 L 11/03/20 12:08 100/54 L 11/03/20 12:00 39.9 C H 131 H 23 H 115/57 L 100 11/03/20 11:56 128 H 99 11/03/20 11:03 100/50 L 11/03/20 10:51 113/55 L 11/03/20 10:50 113/55 L 11/03/20 10:27 128/59 L 11/03/20 10:00 39.9 C H 106 H 20 128/59 L 100 11/03/20 09:58
--- NOTE | 2020-11-03 16:19 | PM.PNNEP ---
Progress Note: A&P Assessment and Plan (1) RADHA (acute kidney injury): Code(s): N17.9 - Acute kidney failure, unspecified Status: Acute Assessment and Plan: due to ATN from hemodynamic instability/shock, prerenal factors, and infection/sepsis renal ultrasound negative CPK elevated and trending up however, renal function improving in association with better urine output no need for DIGITAL FORENSIC ANALYST/dialysis at this time but he certainly remains at risk follow electrolytes, creatinine, and urine output (2) Metabolic acidosis: Code(s): E87.2 - Acidosis Status: Acute Assessment and Plan: secondary to RADHA/ARF and associated issues with diarrhea and dilution on bicarbonate fluids to compensate follow trend (3) Septic shock: Code(s): A41.9 - Sepsis, unspecified organism; R65.21 - Severe sepsis with septic shock Status: Acute Assessment and Plan: remains on vasopressor therapy follow culture date continue broad spectrum antibiotics (4) HTN (hypertension), malignant: Code(s): I10 - Essential (primary) hypertension Status: Chronic Assessment and Plan: BP medications on hold due to #3 follow hemodynamics (5) Diabetes mellitus with hyperglycemia: Qualifiers: Diabetes mellitus residential insulin use: with dedicated intermodal truck driver use Diabetes mellitus type: type 2 Qualified Code(s): E11.65 - Type 2 diabetes mellitus with hyperglycemia; Z79.4 - custodial (current) use of insulin Code(s): E11.65 - Type 2 diabetes mellitus with hyperglycemia Status: Acute Assessment and Plan: follow accuchecks on insuling gtt Will continue to follow. Subjective Date/time seen: 11/03/20 16:19 Chart reviewed -- remains intubated and on pressor therapy to maintain MAP; urine output has increased and renal function has improved as well; however, CPK is trending up; febrile; no apparent distress noted; no new issues/events overnight or earlier this AM. Exam Narrative: Exam Narrative: General: large male in NAD Heart: normal S1 and S2; no rub Lungs: coarse and decreased at bases Abdomen: soft, nontender, nondistended, hypoactive bowel sounds Extremities: no cyanosis or clubbing; no edema; left AKA and right BKA Skin: warm and dry Objective Data Vital Signs Vital Signs: Vital Signs Temp Pulse Resp BP Pulse Ox 11/03/20 16:00 39.9 C H 112 H 21 H 129/59 L 100 07/12/21 15:56 129/59 L 11/03/20 15:55 105 H 20 129/59 L 11/03/20 15:54 129/59 L 11/03/20 15:41 115/57 L 11/03/20 15:24 39.9 C H 11/03/20 15:03 105 H 20 11/03/20 15:00 88/46 L 11/03/20 14:56 114 H 100 11/03/20 14:55 111 H 20 11/03/20 14:00 39.8 C H 109 H 20 109/55 L 100 11/03/20 13:56 115/56 L 11/03/20 13:55 105 H 20 115/56 L 11/03/20 13:54 115/56 L 11/03/20 12:34 95/46 L 11/03/20 12:09 132 H 23 H 100/54 L 11/03/20 12:08 100/54 L 11/03/20 12:00 39.9 C H 131 H 23 H 115/57 L 100 11/03/20 11:56 128 H 99 11/03/20 11:03 100/50 L 11/03/20 10:51 113/55 L 11/03/20 10:50 113/55 L 11/03/20 10:27 128/59 L 11/03/20 10:00 39.9 C H 106 H 20 128/59 L 100 11/03/20 09:58 131/59 L 11/03/20 09:15 130/60 11/03/20 08:59 103 H 22 H 11/03/20 08:58 39.8 C H 11/03/20 08:55 104 H 100 11/03/20 08:48 104 H 22 H 11/03/20 08:31 100 20 123/56 L 11/03/20 08:30 100 20 123/56 L 11/03/20 08:28 39.7 C H 11/03/20 08:01 126/57 L 11/03/20 08:00 39.7 C H 99 22 H 129/58 L 100 11/03/20 06:44 90/43 L 11/03/20 06:03 107/51 L 11/03/20 06:00 105 H 22 H 116/53 L 99 11/03/20 05:56 104 H 99 11/03/20 04:24 120/54 L 11/03/20 04:00 39.3 C H 103 H 22 H 131/58 L 100 11/03/20 03:25 39.3 C H 11/03/20 02:55 39.6 C H 11/03/20 02:25 110/50 L 11/03/20 02:01 10
[2020-11-03 16:23] LABS: Partial Thromboplastin Time 82.2 SECONDS (22.3-36.8)
[2020-11-03 18:28] LABS: Anion Gap 6 mmol/L (8-16); Blood Urea Nitrogen 69 mg/dL (9-20); Calcium 6.7 mg/dL (8.4-10.2); Carbon Dioxide 26 mmol/L (22-30); Chloride 97 mmol/L (98-107); Estimated CRCL calculation 52 ml/min; Estimated Glomerular Filt Rate 32; Glucose 138 mg/dL (75-110); Potassium 2.9 mmol/L (3.4-5.0); Sodium 129 mmol/L (137-145)
--- NOTE | 2020-11-03 18:32 | PC.NURSE ---
Spoke with Dr. Vasquez regarding blood glucose 120 & 125, and anion gap of 6. Last insulin was 9.1. New order to leave drip on throughout the night and recheck in the AM
[2020-11-03 19:19] LABS: Glucose Point of Care 145 mg/dl (65-105)
[2020-11-03 19:19] LABS: Glucose Point of Care 210 mg/dl (65-105)
[2020-11-03 19:19] LABS: Glucose Point of Care 125 mg/dl (65-105)
[2020-11-03 19:19] LABS: Glucose Point of Care 127 mg/dl (65-105)
[2020-11-03 19:19] LABS: Glucose Point of Care 120 mg/dl (65-105)
[2020-11-03 19:19] LABS: Glucose Point of Care 180 mg/dl (65-105)
[2020-11-03 19:19] LABS: Glucose Point of Care 152 mg/dl (65-105)
[2020-11-03] MEDS: HEPARIN SOD/D5W 100 UNITS/ML 25,000 UNITS/250 ML BAG 20 UNITS IV CONT (23:02)
[2020-11-03] MEDS: INSULIN HUMAN REGULAR (*BKC) 100 UNITS in SODIUM CHLORIDE 0.9% IV 99 ML 10.4 UNITS IV CONT (23:03)
[2020-11-03 23:44] LABS: Partial Thromboplastin Time 95.2 SECONDS (22.3-36.8)
[2020-11-03 23:55] LABS: Anion Gap 7 mmol/L (8-16); Blood Urea Nitrogen 66 mg/dL (9-20); Calcium 6.6 mg/dL (8.4-10.2); Carbon Dioxide 27 mmol/L (22-30); Chloride 93 mmol/L (98-107); Estimated CRCL calculation 55 ml/min; Estimated Glomerular Filt Rate 34; Glucose 143 mg/dL (75-110); Potassium 2.6 mmol/L (3.4-5.0); Sodium 127 mmol/L (137-145)
[2020-11-04] VITALS (57 sets, daily range): BP systolic 88–143; BP diastolic 46–67; PULSE 90–126; RESP 20–26; TEMP 38.4–39.4; O2SAT 98–100
[2020-11-04] MEDS: NOREPINEPHRINE 8 MG/D5W 250 ML 8 MG/250 ML BAG 56.25 MG IV CONT ×2 (00:01→04:31)
[2020-11-04] MEDS: LEVALBUTEROL NEB 1.25 MG/3 ML 0.63 MG INHALATION ×4 (02:27→20:32)
[2020-11-04] MEDS: IPRATROPIUM BR 0.02% INH SOLN 0.5 MG/2.5 ML VIAL INHALATION ×4 (02:28→20:32)
[2020-11-04] MEDS: metroNIDAZOLE 500 MG/ISO 100ML 500 MG/100 ML BAG 100 MG IVPB ×4 (04:14→21:15)
[2020-11-04 04:24] LABS: Alveolar/Arterial O2 Gradient 81.3 mmHg; Base Excess ABG 4.6 mEq/l (+/-2.0); Carboxyhemoglobin 0.6 % THb (0-2.0); Fractional Inspired Oxygen 30 %; HCO3 ABG 26.3 mEq/l (22.0-26.0); Methemoglobin ABG 0.5 %THb (0-1.5); Oxygen Saturation ABG 98.1 % (95.0-100.0); Oxyhemoglobin 96.5 % THb (90.0-100.0); PO2 ABG 96.2 mmHg (80.0-100.0); PO2 FiO2 Ratio Arterial Blood 3.21 %; Reduced Hemoglobin 2.4 %THb (0-5.0); Total Hemoglobin 16.2 g/dL (12.0-18.0)
[2020-11-04 04:26] LABS: Device VENTILATOR; Site Drawn ARTLINE; pH ABG 7.546 (7.350-7.450)
[2020-11-04 04:27] LABS: Arterial Blood Gas Minute Volume 0 LPM; Arterial Blood Gas PEEP 8 cmH2O; Arterial Blood Gas Pressure Support 0 cmH2O; Arterial Blood Gas Tidal Volume 500 ml; Arterial Blood Gas Vent Mode CMV; Arterial Blood Gas Ventilator rate 20 /MIN; Peak Inspiratory Pressure 0 cmH2O
[2020-11-04] MEDS: SODIUM BICARBONATE 8.4% 150 MEQ in WATER, STERILE FOR INJECTION 950 ML 125 MEQ IV CONT (06:13)
[2020-11-04] MEDS: CENTRAL LINE FLUSH 10 ML IV PUSH ×3 (06:15→21:17)
[2020-11-04] MEDS: MIDAZOLAM 100MG/NS 100ML(*CRX) 100 MG/100 ML BAG IV CONT (06:24)
[2020-11-04] MEDS: FENTANYL 2,500MCG/NS250ML(*CRX 2,500 MCG/250 ML BAG IV CONT (06:25)
[2020-11-04 06:46] LABS: Hematocrit 47.3 % (42.0-52.0); Hemoglobin 15.7 g/dL (14.0-18.0); Mean Corpuscular HGB Conc 33.2 g/dl (32-36); Mean Corpuscular Volume 81.4 fl (80-100); Mean Platelet Volume 9.4 fl (7.4-10.4); Platelet Count Result 209 k/mm3 (150-375); Red Blood Count 5.81 M/mm3 (4.6-6.20); Red Cell Distribution Width 15.7 % (11.5-14.5); White Blood Count 29.3 K/mm3 (4.5-10.0)
[2020-11-04 06:49] LABS: Lactic Acid Reflex 1.8 mmol/L (0.7-2.1)
[2020-11-04 06:54] LABS: Alanine Aminotransferase 27 U/L (4-50); Albumin Level 2.3 g/dL (3.5-5.1); Alkaline Phosphatase 96 U/L (38-126); Anion Gap 7 mmol/L (8-16); Aspartate Amino Transferase 104 U/L (17-59); Bilirubin,Total 0.6 mg/dL (0.2-1.3); Blood Urea Nitrogen 61 mg/dL (9-20); Calcium 6.6 mg/dL (8.4-10.2); Carbon Dioxide 29 mmol/L (22-30); Chloride 92 mmol/L (98-107); Estimated CRCL calculation 61 ml/min; Estimated Glomerular Filt Rate 39; Glucose 128 mg/dL (75-110); Magnesium 1.8 mg/dL (1.6-2.3); Phosphorus 2.9 mg/dL (2.5-4.5); Potassium 2.8 mmol/L (3.4-5.0); Sodium 128 mmol/L (137-145)
[2020-11-04 07:04] LABS: CRP 13.8 mg/dL (<1.0)
[2020-11-04 07:39] LABS: Glucose Point of Care 134 mg/dl (65-105)
[2020-11-04 07:39] LABS: Glucose Point of Care 129 mg/dl (65-105)
[2020-11-04 07:39] LABS: Glucose Point of Care 129 mg/dl (65-105)
[2020-11-04 07:39] LABS: Glucose Point of Care 120 mg/dl (65-105)
[2020-11-04 07:40] LABS: Glucose Point of Care 142 mg/dl (65-105)
[2020-11-04 07:40] LABS: Glucose Point of Care 123 mg/dl (65-105)
[2020-11-04 07:40] LABS: Glucose Point of Care 113 mg/dl (65-105)
[2020-11-04 07:40] LABS: Glucose Point of Care 107 mg/dl (65-105)
[2020-11-04 07:40] LABS: Glucose Point of Care 131 mg/dl (65-105)
[2020-11-04 07:40] LABS: Glucose Point of Care 135 mg/dl (65-105)
[2020-11-04 07:40] LABS: Glucose Point of Care 133 mg/dl (65-105)
[2020-11-04 07:40] LABS: Glucose Point of Care 129 mg/dl (65-105)
[2020-11-04 08:14] LABS: Creatine Kinase 5606 U/L (55-170)
[2020-11-04 08:15] LABS: Partial Thromboplastin Time 92.7 SECONDS (22.3-36.8)
[2020-11-04] MEDS: INSULIN HUMAN REGULAR (*BKC) 100 UNITS in SODIUM CHLORIDE 0.9% IV 99 ML 15.9 UNITS IV CONT ×2 (08:27→18:53)
[2020-11-04] MEDS: POTASSIUM CHLORIDE 20 MEQ PACKET (FOR LIQUID) 40 MEQ FEED TUBE (08:29)
[2020-11-04] MEDS: ACETAMINOPHEN 325 MG TABLET 650 MG PO ×2 (08:29→13:26)
[2020-11-04] MEDS: FIDAXOMICIN 200 MG TABLET XX ×2 (08:30→21:15)
[2020-11-04] MEDS: MAGNESIUM SULF 2 GM/WATER 50ML 2 GM/50 ML BAG IVPB (08:33)
[2020-11-04] MEDS: CALCIUM CHLOR 1,000MG/100ML NS 1,000 MG/100 ML BAG 100 MG IVPB (08:35)
[2020-11-04] MEDS: SODIUM CHLORIDE 0.9% IV 1,000 ML 50 ML IV CONT (08:37)
[2020-11-04] MEDS: MINERAL OIL/WHITE PETROLATUM OINTMENT 1 APPLIC EACH EYE ×2 (08:39→21:16)
[2020-11-04] MEDS: PANTOPRAZOLE SODIUM IV 40 MG VIAL IV PUSH (08:43)
[2020-11-04] MEDS: HYDROCORTISONE SODIUM SUCCINATE 100 MG/2 ML VIAL IV PUSH ×2 (08:43→16:11)
[2020-11-04] MEDS: NOREPINEPHRINE 8 MG/D5W 250 ML 8 MG/250 ML BAG 46.88 MG IV CONT (09:02)
--- NOTE | 2020-11-04 09:46 | WPDINTPN ---
Progress Note: A&P Assessment and Plan (1) Septic shock: Code(s): A41.9 - Sepsis, unspecified organism; R65.21 - Severe sepsis with septic shock Status: Acute Assessment and Plan: septic shock could be related to C diff colitis. - patient received adequate IV fluids, central line in place - on Levophed, vasopressin. Berhane-Synephrine weaned off - maintain mean arterial pressure > 70 mmHg for adequate end organ perfusion. - arterial line placed on 11/02/2020 - appreciate GI and infectious disease evaluation and recommendations. Continue Zosyn, p.o. vancomycin and fidaxomicin - 10/31 stool was positive C diff -10/31: blood cultures were negative x2 -10/31: stool cultures pending -11/01: repeat blood cultures, urine and sputum cultures pending. sputum cultures showing yeast which is likely a colonization - add hydrocortisone (2) Acute respiratory failure: Code(s): J96.00 - Acute respiratory failure, unspecified whether with hypoxia or hypercapnia Status: Acute Assessment and Plan: patient with metabolic encephalopathy likely related to uremia, septic shock, hypotension, infection - patient was intubated on 11/01/2020 - currently on CMV mode of ventilation, peep of 8 in 30% FiO2, adequate O2 sats, wean FiO2 to maintain O2 sats greater than 92% - chest x-ray and ABGs reviewed, - decrease tidal volume to 400 - sedated with fentanyl and Versed infusion (3) Acute renal failure superimposed on stage 3 chronic kidney disease: Qualifiers: Acute renal failure type: unspecified Qualified Code(s): N17.9 - Acute kidney failure, unspecified; N18.3 - Chronic kidney disease, stage 3 (moderate) Code(s): N17.9 - Acute kidney failure, unspecified; N18.3 - Chronic kidney disease, stage 3 (moderate) Status: Acute Assessment and Plan: acute on chronic kidney disease likely related to hypotension, septic shock, hypovolemia 2nd diarrhea, medications such as spironolactone, torsemide, losartan, Coreg which he takes at home - patient received adequate fluids - 11/01/2020:renal ultrasound Showed normal kidneys and no hydronephrosis - appreciate Nephrology evaluation recommendation - creatinine and BUN improved - rhabdomyolysis, improving CK level - patient now alkalotic will change sodium bicarb infusion to normal saline - replace low potassium, calcium and magnesium (4) Atrial fibrillation: Qualifiers: Atrial fibrillation type: unspecified Qualified Code(s): I48.91 - Unspecified atrial fibrillation Code(s): I48.91 - Unspecified atrial fibrillation Status: Acute Assessment and Plan: patient in AFib, rate controlled. On Eliquis at home which has been held - continue heparin infusion - resume digoxin (5) Colitis: Code(s): K52.9 - Noninfective gastroenteritis and colitis, unspecified Status: Acute Assessment and Plan: C diff colitis - NG / OG tube to low intermittent suction - GI, ID and surgery following the patient. Patient's brother declined surgical option continue p.o. vancomycin, fidaxomicin, IV metronidazole - patient has a history of C diff colitis x3 in the past -10/31: stool for C diff is positive - stool culture also pending (6) Morbid obesity: Code(s): E66.01 - Morbid (severe) obesity due to excess calories Status: Acute Assessment and Plan: chronic morbid obesity (7) Diabetes mellitus with hyperglycemia: Qualifiers: Diabetes mellitus type: type 2 Diabetes mellitus termination clerk insulin use: with half-way use Qualified Code(s): E11.65 - Type 2 diabetes mellitus with hyperglycemia; Z79.4 - oysterman (current) use of insulin Code(s): E11.65 - Type 2 diabetes mellitus with hyperglycemia Status: Acute Assessment and Plan: hyperglycemia with metabolic acidosis. - continue insulin infusion Additional Plan DVT prophylaxis - on heparin infusion Stress ulcer
[2020-11-04] MEDS: DIGOXIN INJ 250 MCG/ML 2 ML AMP (*BKC) IV PUSH (10:15)
--- NOTE | 2020-11-04 10:59 | PM.PNNEP ---
Progress Note: A&P Assessment and Plan (1) RADHA (acute kidney injury): Code(s): N17.9 - Acute kidney failure, unspecified Status: Acute Assessment and Plan: due to ATN from hemodynamic instability/shock, prerenal factors, and infection/sepsis renal ultrasound negative CPK doing better renal function improving in association with better urine output no need for SANDWICH ARTIST/dialysis at this time but he certainly remains at risk follow electrolytes, creatinine, and urine output (2) Metabolic acidosis: Code(s): E87.2 - Acidosis Status: Acute Assessment and Plan: secondary to RADHA/ARF and associated issues with diarrhea and dilution was on bicarbonate fluids to compensate (switched to normal saline today) follow trend (3) Septic shock: Code(s): A41.9 - Sepsis, unspecified organism; R65.21 - Severe sepsis with septic shock Status: Acute Assessment and Plan: remains on vasopressor therapy follow culture date continue broad spectrum antibiotics as outlined by ID (4) HTN (hypertension), malignant: Code(s): I10 - Essential (primary) hypertension Status: Chronic Assessment and Plan: BP medications on hold due to #3 follow hemodynamics (5) Diabetes mellitus with hyperglycemia: Qualifiers: Diabetes mellitus terminal supervisor insulin use: with terminal supervisor use Diabetes mellitus type: type 2 Qualified Code(s): E11.65 - Type 2 diabetes mellitus with hyperglycemia; Z79.4 - assistant terminal manager (current) use of insulin Code(s): E11.65 - Type 2 diabetes mellitus with hyperglycemia Status: Acute Assessment and Plan: follow accuchecks on insuling gtt Will continue to follow. Subjective Date/time seen: 11/04/20 10:59 Remains on ventilator support as well as pressor therapy to maintain MAP/BP/hemodynamics; continues to have on/off fevers; given alkalosis by AM labs,IVF switched to normal saline; making good urine output; no apparent distress noted. Exam Narrative: Exam Narrative: General: large male in NAD; intubated Heart: normal S1 and S2; no rub Lungs: coarse and decreased at bases Abdomen: soft, nontender, nondistended, hypoactive bowel sounds Extremities: no cyanosis or clubbing; no edema; left AKA and right BKA Skin: warm and intact Objective Data Vital Signs Vital Signs: Vital Signs Temp Pulse Resp BP Pulse Ox 11/04/20 10:15 114 H 11/04/20 10:09 38.8 C H 11/04/20 10:08 102 H 20 104/56 L 11/04/20 10:07 104/56 L 11/04/20 10:00 38.8 C H 112 H 20 97/54 L 98 11/04/20 09:13 110/58 L 11/04/20 09:02 112/59 L 11/04/20 08:50 110 H 20 11/04/20 08:49 113 H 20 11/04/20 08:30 118/61 11/04/20 08:29 38.8 C H 11/04/20 08:21 111 H 26 H 11/04/20 08:18 114 H 99 11/04/20 08:11 116 H 20 11/04/20 08:00 38.8 C H 120 H 26 H 118/60 99 11/04/20 06:25 120 H 20 11/04/20 06:00 39.2 C H 126 H 20 119/61 98 11/04/20 04:00 39.3 C H 102 H 20 111/57 L 99 11/04/20 03:06 111 H 20 11/04/20 02:28 108 H 20 11/04/20 02:26 108 H 100 11/04/20 02:00 39.4 C H 105 H 20 119/59 L 100 11/04/20 01:06 88/48 L 11/04/20 00:03 39.4 C H 11/04/20 00:00 39.4 C H 114 H 20 106/54 L 99 11/03/20 23:49 108 H 110/56 L 11/03/20 23:12 107 H 100 11/03/20 22:45 87/48 L 11/03/20 22:04 39.6 C H 11/03/20 22:00 39.6 C H 119 H 20 104/52 L 100 11/03/20 21:05 115/58 L 11/03/20 20:50 125/59 L 11/03/20 20:49 125/60 11/03/20 20:42 124/58 L 11/03/20 20:15 119/58 L 11/03/20 20:10 110 H 20 11/03/20 20:01 105 H 100 11/03/20 20:00 39.8 C H 106 H 20 116/57 L 99 11/03/20 19:15 125/59 L 11/03/20 18:59 126/59 L 11/03/20 18:04 117/57 L 11/03/20 18:03 102 H 20 117/57 L 11/03/20 18:02 102 H 20 11/03/20 18:00 39.9 C H 101 H 20
--- NOTE | 2020-11-04 10:59 | P.PNNP_ITS ---
Progress Note: A&P Assessment and Plan (1) RADHA (acute kidney injury): Code(s): N17.9 - Acute kidney failure, unspecified Status: Acute Assessment and Plan: * due to ATN from hemodynamic instability/shock, prerenal factors, and infection/sepsis * renal ultrasound negative * CPK doing better * renal function improving in association with better urine output * no need for PATCH MACHINE OPERATOR/dialysis at this time but he certainly remains at risk * follow electrolytes, creatinine, and urine output (2) Metabolic acidosis: Code(s): E87.2 - Acidosis Status: Acute Assessment and Plan: * secondary to RADHA/ARF and associated issues with diarrhea and dilution * was on bicarbonate fluids to compensate (switched to normal saline today) * follow trend (3) Septic shock: Code(s): A41.9 - Sepsis, unspecified organism; R65.21 - Severe sepsis with septic shock Status: Acute Assessment and Plan: * remains on vasopressor therapy * follow culture date * continue broad spectrum antibiotics as outlined by ID (4) HTN (hypertension), malignant: Code(s): I10 - Essential (primary) hypertension Status: Chronic Assessment and Plan: * BP medications on hold due to #3 * follow hemodynamics (5) Diabetes mellitus with hyperglycemia: Qualifiers: Diabetes mellitus termite renewal inspector insulin use: with nursing home use Diabetes mellitus type: type 2 Qualified Code(s): E11.65 - Type 2 diabetes mellitus with hyperglycemia; Z79.4 - terminal gauger (current) use of insulin Code(s): E11.65 - Type 2 diabetes mellitus with hyperglycemia Status: Acute Assessment and Plan: * follow accuchecks * on insuling gtt Will continue to follow. Subjective Date/time seen: 11/04/20 10:59 Remains on ventilator support as well as pressor therapy to maintain MAP/ BP/hemodynamics; continues to have on/off fevers; given alkalosis by AM labs,IVF switched to normal saline; making good urine output; no apparent distress noted. Exam Narrative: Exam Narrative: General: large male in NAD; intubated Heart: normal S1 and S2; no rub Lungs: coarse and decreased at bases Abdomen: soft, nontender, nondistended, hypoactive bowel sounds Extremities: no cyanosis or clubbing; no edema; left AKA and right BKA Skin: warm and intact Objective Data Vital Signs Vital Signs: Vital Signs Temp Pulse Resp BP Pulse Ox 11/04/20 10:15 114 H 11/04/20 10:09 38.8 C H 11/04/20 10:08 102 H 20 104/56 L 11/04/20 10:07 104/56 L 11/04/20 10:00 38.8 C H 112 H 20 97/54 L 98 11/04/20 09:13 110/58 L 11/04/20 09:02 112/59 L 11/04/20 08:50 110 H 20 11/04/20 08:49 113 H 20 11/04/20 08:30 118/61 11/04/20 08:29 38.8 C H 11/04/20 08:21 111 H 26 H 11/04/20 08:18 114 H 99 11/04/20 08:11 116 H 20 11/04/20 08:00 38.8 C H 120 H 26 H 118/60 99 11/04/20 06:25 120 H 20 11/04/20 06:00 39.2 C H 126 H 20 119/61 98 11/04/20 04:00 39.3 C H 102 H 20 111/57 L 99 11/04/20 03:06 111 H 20 11/04/20 02:28 108 H 20 11/04/20 02:26 108 H 100 11/04/20 02:00 39.4 C H 105 H 20 119/59 L 100 11/04/20 01:06 88/48 L 11/04/20 00:03 39.4 C H 0713
--- NOTE | 2020-11-04 11:13 | PC.NURSE ---
Vasopressin increased to 0.03 units/min and will maintain at this titration level per Dr. Tracey's order. Order to titrate Levophed off first. Levophed decreased to 20mcg/min per Dr. Tracey's order
--- NOTE | 2020-11-04 11:17 | PCNFU ---
Nutrition Follow-Up Complete: Altered GI function related to Clostridium Difficile as evidenced by diarrhea and recommended bowel rest. Goal: Patient to meet estimated nutritional needs. Patient is progressing towards goal. We will continue current goal. Pt current nutrition is Glucerna 1.2 at 20 ml/hr. Last recorded weight is 159 kg, down from 201.5 kg on admit. Bowel Motility:+BM reported 11/02: Fecal contaminant catheter. Labs Reviewed:Glu 128,BUN 61,Cr 1.8,K 2.8,Alb 2.3 Meds Noted:Vasopressin, Vancomycin,Zosyn, Fentanyl, Flagyl, Zofran, Dificid, Protonix, Levophed,Versed. Additional Notes: Nutrition follow up. Patient remains on mechanical vent. Trickle Tube feedings started today of Glucerna 1.2 at 20 ml/hr. Recommend goal rate at 75 ml/hr at 22 hrs, providing 1980 kcals/99 gms protein/1328 ml water. Cdiff positive. Monitor patient's labs, medications, weight and oral intake every Tuesday/Tuesday and daily during ICU rounds every Tuesday and Tuesday.
[2020-11-04] MEDS: HEPARIN SOD/D5W 100 UNITS/ML 25,000 UNITS/250 ML BAG 20 UNITS IV CONT (11:49)
--- NOTE | 2020-11-04 12:30 | PM.IMPN ---
Progress Note: A&P Assessment and Plan (1) Acute respiratory failure: Qualifiers: Respiratory failure complication: hypoxia Qualified Code(s): J96.01 - Acute respiratory failure with hypoxia Code(s): J96.00 - Acute respiratory failure, unspecified whether with hypoxia or hypercapnia Status: Acute Assessment and Plan: Patient developed respiratory failure requiring intubation. CXR reviewed today showing atelectasis. Wean MV once he is more stable. Appreciate staffing program manager input. (2) Septic shock: Code(s): A41.9 - Sepsis, unspecified organism; R65.21 - Severe sepsis with septic shock Status: Acute Assessment and Plan: Patient with severe septic shock requiriing up to 4 pressors. Improved now and currently down to BEHAVIORAL INSTRUCTOR and Levophed. Continue to wean presors as BP tolerates. Solu-Cortef added. (3) C. difficile colitis: Code(s): A04.72 - Enterocolitis due to Clostridium difficile, not specified as recurrent Status: Acute Assessment and Plan: Patient presents with n/v/d and found to have septic shock. Stool has returned positive for CDiff. KUB today reviewed showing gaseous distention of the colon. WBC trending down now. LA 1.8. Continue oral Vanco, oral Fidaxomicin and IV Flagyl. ID following. General surgery also involved in his care. Appreciate their input. Monitor WBC. Monitor stool output. (4) Leukocytosis: Qualifiers: Leukocytosis type: unspecified Qualified Code(s): D72.829 - Elevated white blood cell count, unspecified Code(s): D72.829 - Elevated white blood cell count, unspecified Status: Acute Assessment and Plan: WBC 34K on admission and climbed to 38K before trending down now. Related to CDiff colitis. (5) RADHA (acute kidney injury): Code(s): N17.9 - Acute kidney failure, unspecified Status: Acute Assessment and Plan: Cr 2.4 on admission but increased to 4.6 related to ATN from sepsis and HoTN. Cr 1.0 in August 2020. Spironolactone and torsemide on hold. Cr trending down now to 1.8 today. Good UOP. Follow (6) Diabetes mellitus with hyperglycemia: Qualifiers: Diabetes mellitus fdc insulin use: with moth exterminator use Diabetes mellitus type: type 2 Qualified Code(s): E11.65 - Type 2 diabetes mellitus with hyperglycemia; Z79.4 - shelter (current) use of insulin Code(s): E11.65 - Type 2 diabetes mellitus with hyperglycemia Status: Acute Assessment and Plan: A1c 8.6. Glucose reviewed on 11/04. COntrolled with insulin drip. Follow closely especially since steroid added. (7) Atrial fibrillation: Qualifiers: Atrial fibrillation type: unspecified chronic Qualified Code(s): I48.20 - Chronic atrial fibrillation, unspecified Code(s): I48.91 - Unspecified atrial fibrillation Status: Acute Assessment and Plan: Patient with chronic AFib. Mildly tachycardic related to the HoTN and fever. Continue to control fever and BP. Digoxin added. (8) Electrolyte abnormality: Code(s): E87.8 - Other disorders of electrolyte and fluid balance, not elsewhere classified Status: Acute Assessment and Plan: Potassium low at 2.8 and Calcium 6.6. Mag/Phos normal. Related to diarrhea. Replacement ordered. (9) Metabolic encephalopathy: Code(s): G93.41 - Metabolic encephalopathy Status: Acute Assessment and Plan: Pateitn sedated currently. Difficult to assess. CT brain 11/01 showing no acute findigns. Monitor closely once off sedation (10) DARIN (obstructive sleep apnea): Code(s): G47.33 - Obstructive sleep apnea (adult) (pediatric) Status: Acute Assessment and Plan: Currently intubated (11) Morbid obesity: Code(s): E66.01 - Morbid (severe) obesity due to excess calories Status: Acute Assessment and Plan: BMI 50. Complicates his other
[2020-11-04 13:10] LABS: Glucose Point of Care 117 mg/dl (65-105)
[2020-11-04 13:10] LABS: Glucose Point of Care 128 mg/dl (65-105)
[2020-11-04 13:10] LABS: Glucose Point of Care 101 mg/dl (65-105)
[2020-11-04 13:10] LABS: Glucose Point of Care 113 mg/dl (65-105)
[2020-11-04 13:11] LABS: Glucose Point of Care 132 mg/dl (65-105)
--- NOTE | 2020-11-04 15:24 | WPDGIPROGNO ---
Progress Note: A&P Assessment and Plan (1) C. difficile colitis: Code(s): A04.72 - Enterocolitis due to Clostridium difficile, not specified as recurrent Status: Acute Assessment and Plan: severe C diff with septic shock- still quite sick continue on oral vanco, dificid and iv flagyl ID on board, patient is still on zosyn (consider to discontinue if no other source of infection is found) surgery also involved but family member does not want colectomy daily KUB, now he is on 20ml/h tube feeding by OGT prognosis is guarded (2) Septic shock: Code(s): A41.9 - Sepsis, unspecified organism; R65.21 - Severe sepsis with septic shock Status: Acute Assessment and Plan: still on two pressors (3) Acute respiratory failure: Qualifiers: Respiratory failure complication: hypoxia Qualified Code(s): J96.01 - Acute respiratory failure with hypoxia Code(s): J96.00 - Acute respiratory failure, unspecified whether with hypoxia or hypercapnia Status: Acute Assessment and Plan: by manager primary (4) Metabolic encephalopathy: Code(s): G93.41 - Metabolic encephalopathy Status: Acute (5) Diarrhea: Qualifiers: Diarrhea type: presumed infectious Qualified Code(s): R19.7 - Diarrhea, unspecified Code(s): R19.7 - Diarrhea, unspecified Status: Acute Assessment and Plan: with severe C diff (6) Leukocytosis: Qualifiers: Leukocytosis type: unspecified Qualified Code(s): D72.829 - Elevated white blood cell count, unspecified Code(s): D72.829 - Elevated white blood cell count, unspecified Status: Acute Assessment and Plan: continue to monitor (7) RDAHA (acute kidney injury): Code(s): N17.9 - Acute kidney failure, unspecified Status: Acute Assessment and Plan: creatinine is slowly improving (8) Metabolic acidosis: Code(s): E87.2 - Acidosis Status: Acute (9) Morbid obesity: Code(s): E66.01 - Morbid (severe) obesity due to excess calories Status: Acute (10) Diabetes mellitus with hyperglycemia: Qualifiers: Diabetes mellitus type: type 2 Diabetes mellitus watermelon inspector insulin use: with watermelon inspector use Qualified Code(s): E11.65 - Type 2 diabetes mellitus with hyperglycemia; Z79.4 - supervisor intermediates (current) use of insulin Code(s): E11.65 - Type 2 diabetes mellitus with hyperglycemia Status: Acute Subjective Date/time seen: 11/04/20 15:24 Interval history: still on 2 pressors and intubated, febrile, no major changes. Review of Systems Review of Systems: All systems reviewed & are unremarkable except as noted in HPI and below Exam Const: General: comfortable HENMT: General nose exam: Normal nares present Other: ETT in place Eyes: Sclera: sclerae normal Other: pupils are reactive but sluggish Neck: Neck: supple Thyroid: thyroid normal Lymphatic: lymphadenopathy not noted Resp: Effort & Inspection: normal respiratory effort Auscultation: diminished lung sounds Other: decreased at bases, good air entry Cardio: Rate: tachycardic Rhythm: abnormal rhythm irregularly irregular GI: Inspection: distended GI Palp: Yes Soft to palpation and No Tenderness to palpation present (GI) Auscultation: abnormal bowel sounds ( hypoactive bowel sounds) Other: morbid obesity : Other: Abarca catheter in place Urinary Catheter: Urinary Catheter: patent and draining and urine dark Skin: General skin exam: normal color and no rashes or lesions noted Neuro: Other: patient is intubated, sedated, does not open his eyes or follow simple commands Extrem: General: normal to inspection and edema Other: left AKA right BKA Psych: Other: unable to assess at this time Objective Data Vital Signs Vital Signs: Vital Signs - 24 hr 11/03/20 15:41 11/03/20 15:54 11/03/20 15:55 Temperature Pulse Rate 105 H Respiratory Rate 20 Blood Pr
[2020-11-04 15:35] LABS: Anion Gap 5 mmol/L (8-16); Blood Urea Nitrogen 57 mg/dL (9-20); Calcium 6.9 mg/dL (8.4-10.2); Carbon Dioxide 27 mmol/L (22-30); Chloride 97 mmol/L (98-107); Estimated CRCL calculation 78 ml/min; Estimated Glomerular Filt Rate 52; Glucose 139 mg/dL (75-110); Magnesium 2.1 mg/dL (1.6-2.3); Potassium 3.5 mmol/L (3.4-5.0); Sodium 129 mmol/L (137-145)
[2020-11-04] MEDS: NOREPINEPHRINE 8 MG/D5W 250 ML 8 MG/250 ML BAG 30 MG IV CONT (16:04)
[2020-11-04 19:26] LABS: Glucose Point of Care 149 mg/dl (65-105)
[2020-11-04 19:26] LABS: Glucose Point of Care 138 mg/dl (65-105)
[2020-11-04 19:26] LABS: Glucose Point of Care 136 mg/dl (65-105)
[2020-11-04 19:26] LABS: Glucose Point of Care 129 mg/dl (65-105)
[2020-11-04 19:26] LABS: Glucose Point of Care 159 mg/dl (65-105)
[2020-11-04 19:26] LABS: Glucose Point of Care 129 mg/dl (65-105)
[2020-11-04 19:26] LABS: Glucose Point of Care 142 mg/dl (65-105)
--- NOTE | 2020-11-04 20:42 | WPDINFPN2 ---
Progress Note: A&P Time Spent With Patient Time: 1. Sepsis secondary to Clostridium difficile colitis. Stool for C diff toxin was positive. CT scan of the abdomen and pelvis showed inflammatory changes consistent with colitis extending from the transverse colon to the sigmoid colon. The patient also showing systemic manifestation of the colitis including septic shock associated with acute renal failure. patient is currently on Dificid p.o. and Flagyl IV day 3. Vancomycin p.o. day 2. Patient is hypotensive requiring pressors. Respiratory failure. Patient would Ideally may require subtotal colectomy but was deemed too unstable for surgery. Continue current care 2. Septic shock most likely secondary to Clostridium difficile colitis. Secondary bacterial infection is always a concern with an inflamed colon. Patient is also on Zosyn for possible secondary infection. Blood cultures are negative. Right stump site signs of ecchymoses and early skin breakdown. Continue Zosyn day 3. Re-evaluate Zosyn in the next 24-48 hours. 3. Acute renal failure most likely secondary to septic shock. Creatinine has improved to 1.4. Avoid nephrotoxic agents. 4. Respiratory failure most likely secondary to ongoing sepsis. 5. Prognosis in this patient is poor. Subjective Date/time seen: 11/04/20 20:42 Exam Const: General: other ( intubated and sedated) HENMT: Head: other ( ET tube in place) Neck: Neck: normal visual inspection Resp: Effort & Inspection: normal respiratory effort Auscultation: clear to auscultation bilaterally Cardio: Rate: tachycardic Rhythm: regular rhythm GI: Inspection: normal to inspection Auscultation: Hypoactive bowel sounds present Rectal Exam: other ( flexi Seal in place) : Other: indwelling catheter in place Skin: General skin exam: ecchymosis ( right stump site ecchymosis) Neuro: General: other ( intubated and sedated) Extrem: General: other ( bilateral stump site inspected. Left stump ecchymosis) Objective Data Vital Signs Vital Signs: Vital Signs - 24 hr 11/03/20 20:49 11/03/20 20:50 11/03/20 21:05 Temperature Pulse Rate Respiratory Rate Blood Pressure 125/60 125/59 L 115/58 L Pulse Oximetry 11/03/20 22:00 11/03/20 22:04 11/03/20 22:45 Temperature 39.6 C H 39.6 C H Pulse Rate 119 H Respiratory Rate 20 Blood Pressure 104/52 L 87/48 L Pulse Oximetry 100 11/03/20 23:12 11/03/20 23:49 11/04/20 00:00 Temperature 39.4 C H Pulse Rate 107 H 108 H 114 H Respiratory Rate 20 Blood Pressure 110/56 L 106/54 L Pulse Oximetry 100 99 11/04/20 00:03 11/04/20 01:06 11/04/20 02:00 Temperature 39.4 C H 39.4 C H Pulse Rate 105 H Respiratory Rate 20 Blood Pressure 88/48 L 119/59 L Pulse Oximetry 100 11/04/20 02:26 11/04/20 02:28 11/04/20 03:06 Temperature Pulse Rate 108 H 108 H 111 H Respiratory Rate 20 20 Blood Pressure Pulse Oximetry 100 11/04/20 04:00 11/04/20 06:00 11/04/20 06:25 Temperature 39.3 C H 39.2 C H Pulse Rate 102 H 126 H 120 H Respiratory Rate 20 20 20 Blood Pressure 111/57 L 119/61 Pulse Oximetry 99 98 11/04/20 08:00 11/04/20 08:11 11/04/20 08:18 Temperature 38.8 C H Pulse Rate 120 H 116 H 114 H Respiratory Rate 26 H 20 Blood Pressure 118/60 Pulse Oximetry 99 99 11/04/20 08:21 11/04/20 08:29 11/04/20 08:30 Temperature 38.8 C H Pulse Rate 111 H Respiratory Rate 26 H Blood Pressure 118/61 Pulse Oximetry 11/04/20 08:49 11/04/20 08:50 11/04/20 09:02 Temperature Pulse Rate 113 H 110 H Respiratory Rate 20 20 Blood Pressure 112/59 L Pulse Oximetry 11/04/20 09:13 11/04/20 10:00 11/04/20 10:07 Temperature 38.8 C H Pulse Rate 112 H Respiratory Rate 20 Blood Pressure 110/58 L 97/54 L 104/56 L Pulse Oximetry 98 11/04/20 10:08 11/04/20 10:09 11/04/20 10:15 Temperature 38.8 C H Pulse Rate 102 H 114 H Respiratory Rate 20 Blood Pressure 10
[2020-11-04 23:10] LABS: Anion Gap 6 mmol/L (8-16); Blood Urea Nitrogen 51 mg/dL (9-20); Calcium 6.9 mg/dL (8.4-10.2); Carbon Dioxide 27 mmol/L (22-30); Chloride 95 mmol/L (98-107); Estimated CRCL calculation 73 ml/min; Estimated Glomerular Filt Rate 48; Glucose 136 mg/dL (75-110); Magnesium 2.2 mg/dL (1.6-2.3); Potassium 3.2 mmol/L (3.4-5.0); Sodium 128 mmol/L (137-145)
[2020-11-05] VITALS (62 sets, daily range): BP systolic 93–143; BP diastolic 49–65; PULSE 73–101; RESP 20–30; TEMP 36.4–38.2; O2SAT 99–100
[2020-11-05] MEDS: HYDROCORTISONE SODIUM SUCCINATE 100 MG/2 ML VIAL IV PUSH ×3 (00:08→16:19)
[2020-11-05] MEDS: HEPARIN SOD/D5W 100 UNITS/ML 25,000 UNITS/250 ML BAG 20 UNITS IV CONT ×2 (00:22→12:18)
[2020-11-05] MEDS: NOREPINEPHRINE 8 MG/D5W 250 ML 8 MG/250 ML BAG 22.5 MG IV CONT (01:07)
[2020-11-05 01:11] LABS: Glucose Point of Care 162 mg/dl (65-105)
[2020-11-05 01:11] LABS: Glucose Point of Care 142 mg/dl (65-105)
[2020-11-05 01:11] LABS: Glucose Point of Care 193 mg/dl (65-105)
[2020-11-05 01:11] LABS: Glucose Point of Care 134 mg/dl (65-105)
[2020-11-05 01:11] LABS: Glucose Point of Care 165 mg/dl (65-105)
[2020-11-05 01:11] LABS: Glucose Point of Care 137 mg/dl (65-105)
[2020-11-05] MEDS: LEVALBUTEROL NEB 1.25 MG/3 ML 0.63 MG INHALATION ×4 (01:52→19:40)
[2020-11-05] MEDS: IPRATROPIUM BR 0.02% INH SOLN 0.5 MG/2.5 ML VIAL INHALATION ×4 (01:53→19:40)
[2020-11-05] MEDS: metroNIDAZOLE 500 MG/ISO 100ML 500 MG/100 ML BAG 100 MG IVPB ×4 (02:18→20:44)
[2020-11-05] MEDS: INSULIN HUMAN REGULAR (*BKC) 100 UNITS in SODIUM CHLORIDE 0.9% IV 99 ML 12.6 UNITS IV CONT (02:21)
[2020-11-05 03:18] LABS: Anion Gap 8 mmol/L (8-16); Blood Urea Nitrogen 52 mg/dL (9-20); Calcium 6.9 mg/dL (8.4-10.2); Carbon Dioxide 27 mmol/L (22-30); Chloride 93 mmol/L (98-107); Estimated CRCL calculation 83 ml/min; Estimated Glomerular Filt Rate 57; Glucose 151 mg/dL (75-110); Potassium 3.4 mmol/L (3.4-5.0); Sodium 128 mmol/L (137-145)
[2020-11-05 04:13] LABS: Glucose Point of Care 155 mg/dl (65-105)
[2020-11-05 04:13] LABS: Glucose Point of Care 150 mg/dl (65-105)
[2020-11-05 04:13] LABS: Glucose Point of Care 172 mg/dl (65-105)
[2020-11-05 05:11] LABS: Alveolar/Arterial O2 Gradient 71.1 mmHg; Base Excess ABG 1.9 mEq/l (+/-2.0); Carboxyhemoglobin 0.5 % THb (0-2.0); Fractional Inspired Oxygen 30 %; HCO3 ABG 24.6 mEq/l (22.0-26.0); Methemoglobin ABG 0.5 %THb (0-1.5); Oxygen Saturation ABG 98.2 % (95.0-100.0); Oxyhemoglobin 96.8 % THb (90.0-100.0); PCO2 ABG 33.2 mmHg (35.0-45.0); PO2 ABG 103.8 mmHg (80.0-100.0); PO2 FiO2 Ratio Arterial Blood 3.46 %; Reduced Hemoglobin 2.2 %THb (0-5.0); Total Hemoglobin 16.1 g/dL (12.0-18.0); pH ABG 7.487 (7.350-7.450)
[2020-11-05 05:12] LABS: Arterial Blood Gas Ventilator rate 20 /MIN; Device VENTILATOR; Site Drawn ARTLINE
[2020-11-05 05:13] LABS: Arterial Blood Gas Minute Volume 0 LPM; Arterial Blood Gas PEEP 8 cmH2O; Arterial Blood Gas Pressure Support 0 cmH2O; Arterial Blood Gas Tidal Volume 400 ml; Arterial Blood Gas Vent Mode CMV; Peak Inspiratory Pressure 0 cmH2O
[2020-11-05] MEDS: CENTRAL LINE FLUSH 10 ML IV PUSH ×3 (06:16→21:12)
[2020-11-05 06:49] LABS: Hemoglobin 14.5 g/dL (14.0-18.0); Mean Corpuscular Volume 81.8 fl (80-100); Mean Platelet Volume 9.6 fl (7.4-10.4); Platelet Count Result 158 k/mm3 (150-375); Red Blood Count 5.38 M/mm3 (4.6-6.20); Red Cell Distribution Width 15.1 % (11.5-14.5); White Blood Count 20.3 K/mm3 (4.5-10.0)
[2020-11-05] MEDS: SODIUM CHLORIDE 0.9% IV 1,000 ML 50 ML IV CONT (07:03)
[2020-11-05 07:06] LABS: Lactic Acid Reflex 1.3 mmol/L (0.7-2.1)
[2020-11-05 07:09] LABS: Glucose Point of Care 184 mg/dl (65-105)
[2020-11-05 07:09] LABS: Glucose Point of Care 180 mg/dl (65-105)
[2020-11-05 07:10] LABS: Glucose Point of Care 156 mg/dl (65-105)
[2020-11-05 07:11] LABS: Alanine Aminotransferase 26 U/L (4-50); Albumin Level 2.3 g/dL (3.5-5.1); Alkaline Phosphatase 75 U/L (38-126); Anion Gap 6 mmol/L (8-16); Aspartate Amino Transferase 69 U/L (17-59); Bilirubin,Total 0.4 mg/dL (0.2-1.3); Blood Urea Nitrogen 47 mg/dL (9-20); Carbon Dioxide 27 mmol/L (22-30); Chloride 95 mmol/L (98-107); Creatine Kinase 1507 U/L (55-170); Estimated CRCL calculation 78 ml/min; Estimated Glomerular Filt Rate 52; Glucose 168 mg/dL (75-110); Magnesium 2.1 mg/dL (1.6-2.3); Phosphorus 3.1 mg/dL (2.5-4.5); Potassium 3.2 mmol/L (3.4-5.0); Sodium 128 mmol/L (137-145)
[2020-11-05] MEDS: FENTANYL 2,500MCG/NS250ML(*CRX 2,500 MCG/250 ML BAG IV CONT (07:30)
[2020-11-05] MEDS: MIDAZOLAM 100MG/NS 100ML(*CRX) 100 MG/100 ML BAG IV CONT (07:32)
[2020-11-05 08:03] LABS: Partial Thromboplastin Time 77.9 SECONDS (22.3-36.8)
[2020-11-05] MEDS: INSULIN HUMAN REGULAR (*BKC) 100 UNITS in SODIUM CHLORIDE 0.9% IV 99 ML 15.9 UNITS IV CONT ×2 (08:26→14:51)
[2020-11-05] MEDS: POTASSIUM CHLORIDE 20 MEQ PACKET (FOR LIQUID) 40 MEQ FEED TUBE (08:30)
[2020-11-05] MEDS: FIDAXOMICIN 200 MG TABLET XX ×2 (08:32→20:46)
[2020-11-05] MEDS: DIGOXIN INJ 250 MCG/ML 2 ML AMP (*BKC) IV PUSH (08:33)
[2020-11-05] MEDS: PANTOPRAZOLE SODIUM IV 40 MG VIAL IV PUSH (08:39)
[2020-11-05] MEDS: CALCIUM CHLOR 1,000MG/100ML NS 1,000 MG/100 ML BAG 100 MG IVPB (08:41)
[2020-11-05] MEDS: MINERAL OIL/WHITE PETROLATUM OINTMENT 1 APPLIC EACH EYE ×2 (08:43→20:45)
[2020-11-05] MEDS: INSULIN GLARGINE (*BKC) 100 UNITS/ML 60 UNITS SUB-Q (08:43)
--- NOTE | 2020-11-05 09:55 | WPDINTPN ---
Progress Note: A&P Assessment and Plan (1) Septic shock: Code(s): A41.9 - Sepsis, unspecified organism; R65.21 - Severe sepsis with septic shock Status: Acute Assessment and Plan: septic shock could be related to C diff colitis. - patient received adequate IV fluids, central line in place - on Levophed, vasopressin. Berhane-Synephrine weaned off - Levophed requirement is decrease - maintain mean arterial pressure > 70 mmHg for adequate end organ perfusion. - arterial line placed on 11/02/2020 - appreciate GI and infectious disease evaluation and recommendations. Continue Zosyn, p.o. vancomycin and fidaxomicin - 10/31 stool was positive C diff -10/31: blood cultures were negative x2 -10/31: stool cultures pending -11/01: repeat blood cultures, urine and sputum cultures pending. sputum cultures showing yeast which is likely a colonization - continue hydrocortisone (2) Acute respiratory failure: Qualifiers: Respiratory failure complication: hypoxia Qualified Code(s): J96.01 - Acute respiratory failure with hypoxia Code(s): J96.00 - Acute respiratory failure, unspecified whether with hypoxia or hypercapnia Status: Acute Assessment and Plan: patient with metabolic encephalopathy likely related to uremia, septic shock, hypotension, infection - patient was intubated on 11/01/2020 - currently on CMV mode of ventilation, peep of 8 in 30% FiO2, adequate O2 sats, wean FiO2 to maintain O2 sats greater than 92% - chest x-ray and ABGs reviewed, - decrease tidal volume to 380 and rate to 18 - sedated with fentanyl and Versed infusion. sedation holiday (3) Acute renal failure superimposed on stage 3 chronic kidney disease: Qualifiers: Acute renal failure type: unspecified Qualified Code(s): N17.9 - Acute kidney failure, unspecified; N18.3 - Chronic kidney disease, stage 3 (moderate) Code(s): N17.9 - Acute kidney failure, unspecified; N18.3 - Chronic kidney disease, stage 3 (moderate) Status: Acute Assessment and Plan: acute on chronic kidney disease likely related to hypotension, septic shock, hypovolemia 2nd diarrhea, medications such as spironolactone, torsemide, losartan, Coreg which he takes at home - patient received adequate fluids - 11/01/2020:renal ultrasound Showed normal kidneys and no hydronephrosis - appreciate Nephrology evaluation recommendation - creatinine and BUN improved - rhabdomyolysis, improving CK level - IV sodium bicarb infusion was changed to normal saline yesterday - replace low potassium, calcium and magnesium (4) Atrial fibrillation: Qualifiers: Atrial fibrillation type: unspecified Qualified Code(s): I48.91 - Unspecified atrial fibrillation Code(s): I48.91 - Unspecified atrial fibrillation Status: Acute Assessment and Plan: patient in AFib, rate controlled. On Eliquis at home which has been held - continue heparin infusion - continue digoxin (5) Colitis: Code(s): K52.9 - Noninfective gastroenteritis and colitis, unspecified Status: Acute Assessment and Plan: C diff colitis - NG / OG tube to low intermittent suction - GI, ID and surgery following the patient. Patient's brother declined surgical option continue p.o. vancomycin, fidaxomicin, IV metronidazole - patient has a history of C diff colitis x3 in the past -10/31: stool for C diff is positive - stool culture also pending (6) Morbid obesity: Code(s): E66.01 - Morbid (severe) obesity due to excess calories Status: Acute Assessment and Plan: chronic morbid obesity (7) Diabetes mellitus with hyperglycemia: Qualifiers: Diabetes mellitus type: type 2 Diabetes mellitus long-term insulin use: with long-term use Qualified Code(s): E11.65 - Type 2 diabetes mellitus with hyperglycemia; Z79.4 - middle or intermediate school principal (current) use of insulin Code(s): E11.65 - Type 2 diabetes mellitus wi
--- NOTE | 2020-11-05 11:00 | PC.NURSE ---
Cooling blanket removed. Pt temp is 98.0
--- NOTE | 2020-11-05 11:12 | PM.IMPN ---
Progress Note: A&P Assessment and Plan (1) Acute respiratory failure: Qualifiers: Respiratory failure complication: hypoxia Qualified Code(s): J96.01 - Acute respiratory failure with hypoxia Code(s): J96.00 - Acute respiratory failure, unspecified whether with hypoxia or hypercapnia Status: Acute Assessment and Plan: Patient developed respiratory failure requiring intubation. CXR reviewed today showing atelectasis. Sedation weaned down and he is alert and aware. Wean MV once he is more stable. Appreciate hospitality coordinator input. (2) Septic shock: Code(s): A41.9 - Sepsis, unspecified organism; R65.21 - Severe sepsis with septic shock Status: Acute Assessment and Plan: Patient with severe septic shock requiring up to 4 pressors. Improved now and currently down to OFFICIAL COURT REPORTER and Levophed. [place] related to the CDiff. Can not exclude infectious etiology from the right stump. Discussed with hospitality coordinator - plan for US of stump to exclude fluid collection. Continue to wean pressors as BP tolerates. Continue Solu-Cortef. (3) C. difficile colitis: Code(s): A04.72 - Enterocolitis due to Clostridium difficile, not specified as recurrent Status: Acute Assessment and Plan: Patient presents with n/v/d and found to have septic shock. Stool has returned positive for CDiff. KUB yesterday reviewed showing gaseous distention of the colon. WBC trending down now. Continue oral Vanco, oral Fidaxomicin and IV Flagyl. ID following. General surgery also involved in his care. Appreciate their input. Monitor WBC. Monitor stool output. (4) Leukocytosis: Qualifiers: Leukocytosis type: unspecified Qualified Code(s): D72.829 - Elevated white blood cell count, unspecified Code(s): D72.829 - Elevated white blood cell count, unspecified Status: Acute Assessment and Plan: WBC 34K on admission and climbed to 38K before trending down now. Related to CDiff colitis. (5) RADHA (acute kidney injury): Code(s): N17.9 - Acute kidney failure, unspecified Status: Acute Assessment and Plan: Cr 2.4 on admission but increased to 4.6 related to ATN from sepsis and HoTN. Cr 1.0 in August 2020. Spironolactone and torsemide on hold. Cr trending down now to 1.4 today. Good UOP. Follow. 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 Glucose reviewed on 11/05. Controlled with insulin drip. Follow closely. (7) Atrial fibrillation: Qualifiers: Atrial fibrillation type: unspecified chronic Qualified Code(s): I48.20 - Chronic atrial fibrillation, unspecified Code(s): I48.91 - Unspecified atrial fibrillation Status: Acute Assessment and Plan: Patient with chronic AFib. Mildly tachycardic related to the HoTN and fever but better today. Continue to control fever and BP. Currently on Digoxin. (8) Electrolyte abnormality: Code(s): E87.8 - Other disorders of electrolyte and fluid balance, not elsewhere classified Status: Acute Assessment and Plan: Potassium low at 3.2 and Na 128. Calcium 7.0 (calculated 8.4). Mag/Phos normal. Related to diarrhea. Replacement ordered. (9) Metabolic encephalopathy: Code(s): G93.41 - Metabolic encephalopathy Status: Acute Assessment and Plan: Pateitn sedated currently but being weaned. He appears to comprehend. CT brain 11/01 showing no acute findings. Monitor closely (10) DARIN (obstructive sleep apnea): Code(s): G47.33 - Obstructive sleep apnea (adult) (pediatric) Status
--- NOTE | 2020-11-05 11:27 | PCFNICU ---
ICU Rounding Note: Pt current nutrition is Glucerna 1.2 at 20 ml/hr. Nutrition recommendation: Glucerna 1.2 goal rate at 75 ml/hr. Last recorded weight is 159kg. Bowel Motility:+BM reported, diarrhea. Fecal containment devise. Labs Reviewed:Na 128,K 3.2,GFR 52,Cr 1.4,Glu 168 Meds Noted:Levophed, Protonix, Zosyn, NS, Vancomycin, NovoLog, Dificid,Fentanyl, Versed, Heparin, Insulin Human Regular. Additional Notes: Patient seen today during rounds. Remains on mechanical vent. Tube feedings increased from 20 ml/r to 40 ml/hr, plans for goal rate of 75 ml/hr over 22 hours. Tube feeding will provide 1980 kcals/99gms protein/1328 ml fluid. Skin: unstageable pressure ulcer reported on buttocks. orders for Banatrol Plus TID with water flush due to Cdiff/Diarrhea. Following daily in ICU rounds. Assessing/reassessing every Tuesday and Tuesday.
[2020-11-05] MEDS: VASOPRESSIN INJ 100 UNITS in DEXTROSE 5% 95 ML IV CONT (12:13)
--- NOTE | 2020-11-05 14:04 | WPDGIPROGNO ---
Progress Note: A&P Assessment and Plan (1) C. difficile colitis: Code(s): A04.72 - Enterocolitis due to Clostridium difficile, not specified as recurrent Status: Acute Assessment and Plan: severe C diff with septic shock- still quite sick (now on 2 pressors) continue on oral vanco, dificid and iv flagyl ID on board, patient is still on zosyn for potential infection Rt stump surgery also involved but family member did not want colectomy tolerating more tube feeding by OGT prognosis is guarded (2) Septic shock: Code(s): A41.9 - Sepsis, unspecified organism; R65.21 - Severe sepsis with septic shock Status: Acute Assessment and Plan: still on two pressors (3) Acute respiratory failure: Qualifiers: Respiratory failure complication: hypoxia Qualified Code(s): J96.01 - Acute respiratory failure with hypoxia Code(s): J96.00 - Acute respiratory failure, unspecified whether with hypoxia or hypercapnia Status: Acute Assessment and Plan: by costuming supervisor (4) Metabolic encephalopathy: Code(s): G93.41 - Metabolic encephalopathy Status: Acute Assessment and Plan: today he is spontaneously opening eyes (5) Diarrhea: Qualifiers: Diarrhea type: presumed infectious Qualified Code(s): R19.7 - Diarrhea, unspecified Code(s): R19.7 - Diarrhea, unspecified Status: Acute Assessment and Plan: with severe C diff (6) Leukocytosis: Qualifiers: Leukocytosis type: unspecified Qualified Code(s): D72.829 - Elevated white blood cell count, unspecified Code(s): D72.829 - Elevated white blood cell count, unspecified Status: Acute Assessment and Plan: continue to monitor, trending down (7) RADHA (acute kidney injury): Code(s): N17.9 - Acute kidney failure, unspecified Status: Acute Assessment and Plan: renal function is improving (8) Morbid obesity: Code(s): E66.01 - Morbid (severe) obesity due to excess calories Status: Acute (9) Diabetes mellitus with hyperglycemia: Qualifiers: Diabetes mellitus type: type 2 Diabetes mellitus buttermaker continuous churn insulin use: with usp use Qualified Code(s): E11.65 - Type 2 diabetes mellitus with hyperglycemia; Z79.4 - buttermaker continuous churn (current) use of insulin Code(s): E11.65 - Type 2 diabetes mellitus with hyperglycemia Status: Acute (10) Amputation stump necrosis: Code(s): T87.50 - Necrosis of amputation stump, unspecified extremity Status: Acute Assessment and Plan: on iv antibiotics, will get imaging Subjective Date/time seen: 11/05/20 14:04 Interval history: less febrile today but still on 2 pressors, also noted more erythema in Rt stump. Tolerating tube feeding by OGT Review of Systems Review of Systems: All systems reviewed & are unremarkable except as noted in HPI and below Exam Const: Other: obese, intubated, on pressors HENMT: General nose exam: Normal nares present Other: ogt in place Eyes: Sclera: sclerae normal Neck: Neck: supple Resp: Auscultation: no rales and diminished lung sounds Cardio: Rate: regular rate GI: Inspection: distended Auscultation: abnormal bowel sounds (hypoactive) Urinary Catheter: Urinary Catheter: patent and draining Skin: Other: erythema and scab in Rt stump Neuro: Other: sedated but spontaneously opening eyes Extrem: Other: b/l amputee Objective Data Vital Signs Vital Signs: Vital Signs - 24 hr 11/04/20 14:39 11/04/20 14:47 11/04/20 15:00 Temperature 102.3 F H Pulse Rate 110 H Respiratory Rate 24 H Blood Pressure 124/58 L Pulse Oximetry 99 11/04/20 15:53 11/04/20 16:00 11/04/20 16:04 Temperature 101.9 F H Pulse Rate 116 H Respiratory Rate 22 H Blood Pressure 118/56 L 100/49 L 118/56 L Pulse Oximetry 99 11/04/20 16:10 11/04/20 16:11 11/04/20 17:01 Temperature Pulse Rate 108 H 102 H 98
[2020-11-05 15:11] LABS: Chloride Rand Ur <20 mmol/L (32-290); Creatinine Random Urine 184 mg/dL (20-320)
[2020-11-05 16:02] LABS: Glucose Point of Care 148 mg/dl (65-105)
[2020-11-05 16:02] LABS: Glucose Point of Care 147 mg/dl (65-105)
[2020-11-05 16:02] LABS: Glucose Point of Care 163 mg/dl (65-105)
[2020-11-05 16:02] LABS: Glucose Point of Care 180 mg/dl (65-105)
[2020-11-05 16:03] LABS: Glucose Point of Care 166 mg/dl (65-105)
[2020-11-05 16:03] LABS: Glucose Point of Care 167 mg/dl (65-105)
[2020-11-05 16:03] LABS: Glucose Point of Care 145 mg/dl (65-105)
[2020-11-05 16:03] LABS: Glucose Point of Care 148 mg/dl (65-105)
--- NOTE | 2020-11-05 16:14 | P.PNNP_ITS ---
Progress Note: A&P Assessment and Plan (1) RADHA (acute kidney injury): Code(s): N17.9 - Acute kidney failure, unspecified Status: Acute Assessment and Plan: * due to ATN from hemodynamic instability/shock, prerenal factors, and infection/sepsis * renal ultrasound negative * CPK doing better * renal function improving in association with better urine output * follow electrolytes, creatinine, and urine output (2) Metabolic acidosis: Code(s): E87.2 - Acidosis Status: Acute Assessment and Plan: * resolved * secondary to RADHA/ARF and associated issues with diarrhea and dilution * was on bicarbonate fluids to compensate (but now on normal saline) * follow trend (3) Septic shock: Code(s): A41.9 - Sepsis, unspecified organism; R65.21 - Severe sepsis with septic shock Status: Acute Assessment and Plan: * remains on vasopressor therapy * follow culture date - noted to be C. difficile positive; repeat cultures pen ding * continue broad spectrum antibiotics as outlined by ID (4) HTN (hypertension), malignant: Code(s): I10 - Essential (primary) hypertension Status: Chronic Assessment and Plan: * BP medications on hold due to #3 * follow hemodynamics (5) Diabetes mellitus with hyperglycemia: Qualifiers: Diabetes mellitus type: type 2 Diabetes mellitus assistant terminal manager insulin use: with correction use Qualified Code(s): E11.65 - Type 2 diabetes mellitus with hyperglycemia; Z79.4 - [facility] (current) use of insulin Code(s): E11.65 - Type 2 diabetes mellitus with hyperglycemia Status: Acute Assessment and Plan: * follow accuchecks * on insuling gtt Will continue to follow. Subjective Date/time seen: 11/05/20 16:15 Fevers have appeared to have subsided this afternoon; remains on pressor therapy along with ventilator support; no real changes of note; continues to make good urine output with improvement in renal function; no other issues/events overnight. Exam Narrative: Exam Narrative: General: large male in NAD; intubated Heart: normal S1 and S2; no rub Lungs: coarse and decreased at bases Abdomen: soft, nontender, nondistended, hypoactive bowel sounds Extremities: no cyanosis or clubbing; no edema; left AKA and right BKA Skin: bruising on amputation stump noted Objective Data Vital Signs Vital Signs: Vital Signs Temp Pulse Resp BP Pulse Ox 11/05/20 16:00 78 99 11/05/20 15:59 36.4 C L 86 23 H 108/52 L 99 11/05/20 14:58 118/55 L 11/05/20 14:48 93/49 L 11/05/20 14:04 87 24 H 11/05/20 14:03 120/59 L 11/05/20 14:00 36.4 C L 85 20 116/58 L 100 11/05/20 13:54 83 99 11/05/20 13:53 79 24 H 11/05/20 13:01 128/64 11/05/20 12:16 95 30 H 11/05/20 12:15 95 30 H 11/05/20 12:13 139/65 11/05/20 12:00 36.6 C 83 23 H 120/58 L 99 11/05/20 11:01 132/59 L 11/05/20 10:47 88 99 11/05/20 10:27 139/65 11/05/20 10:00 36.7 C 91 21 H 111/53 L 99 11/05/20 09:59 92 24 H 118/56 L 11/05/20 09:58 118/56 L 11/05/20 08:43 117/54 L 11/05/20 08:33 100 11/05/20 08:18 98 24 H 11/05/20 08:15 98 99 11/05/20 08:14 136/60
--- NOTE | 2020-11-05 16:14 | PM.PNNEP ---
Progress Note: A&P Assessment and Plan (1) RADHA (acute kidney injury): Code(s): N17.9 - Acute kidney failure, unspecified Status: Acute Assessment and Plan: due to ATN from hemodynamic instability/shock, prerenal factors, and infection/sepsis renal ultrasound negative CPK doing better renal function improving in association with better urine output follow electrolytes, creatinine, and urine output (2) Metabolic acidosis: Code(s): E87.2 - Acidosis Status: Acute Assessment and Plan: resolved secondary to RADHA/ARF and associated issues with diarrhea and dilution was on bicarbonate fluids to compensate (but now on normal saline) follow trend (3) Septic shock: Code(s): A41.9 - Sepsis, unspecified organism; R65.21 - Severe sepsis with septic shock Status: Acute Assessment and Plan: remains on vasopressor therapy follow culture date - noted to be C. difficile positive; repeat cultures pending continue broad spectrum antibiotics as outlined by ID (4) HTN (hypertension), malignant: Code(s): I10 - Essential (primary) hypertension Status: Chronic Assessment and Plan: BP medications on hold due to #3 follow hemodynamics (5) Diabetes mellitus with hyperglycemia: Qualifiers: Diabetes mellitus type: type 2 Diabetes mellitus retirement insulin use: with manager terminal use Qualified Code(s): E11.65 - Type 2 diabetes mellitus with hyperglycemia; Z79.4 - terminal carman (current) use of insulin Code(s): E11.65 - Type 2 diabetes mellitus with hyperglycemia Status: Acute Assessment and Plan: follow accuchecks on insuling gtt Will continue to follow. Subjective Date/time seen: 11/05/20 16:15 Fevers have appeared to have subsided this afternoon; remains on pressor therapy along with ventilator support; no real changes of note; continues to make good urine output with improvement in renal function; no other issues/events overnight. Exam Narrative: Exam Narrative: General: large male in NAD; intubated Heart: normal S1 and S2; no rub Lungs: coarse and decreased at bases Abdomen: soft, nontender, nondistended, hypoactive bowel sounds Extremities: no cyanosis or clubbing; no edema; left AKA and right BKA Skin: bruising on amputation stump noted Objective Data Vital Signs Vital Signs: Vital Signs Temp Pulse Resp BP Pulse Ox 11/05/20 16:00 78 99 11/05/20 15:59 36.4 C L 86 23 H 108/52 L 99 11/05/20 14:58 118/55 L 11/05/20 14:48 93/49 L 11/05/20 14:04 87 24 H 11/05/20 14:03 120/59 L 11/05/20 14:00 36.4 C L 85 20 116/58 L 100 11/05/20 13:54 83 99 11/05/20 13:53 79 24 H 11/05/20 13:01 128/64 11/05/20 12:16 95 30 H 11/05/20 12:15 95 30 H 11/05/20 12:13 139/65 11/05/20 12:00 36.6 C 83 23 H 120/58 L 99 11/05/20 11:01 132/59 L 11/05/20 10:47 88 99 11/05/20 10:27 139/65 11/05/20 10:00 36.7 C 91 21 H 111/53 L 99 11/05/20 09:59 92 24 H 118/56 L 11/05/20 09:58 118/56 L 11/05/20 08:43 117/54 L 11/05/20 08:33 100 11/05/20 08:18 98 24 H 11/05/20 08:15 98 99 11/05/20 08:14 136/60 11/05/20 08:13 139/60 11/05/20 08:11 101 H 25 H 11/05/20 08:00 37.3 C 92 24 H 124/57 L 99 11/05/20 07:32 87 23 H 11/05/20 07:30 87 23 H 11/05/20 07:04 82 122/56 L 11/05/20 06:19 88 24 H 11/05/20 06:17 91 24 H 11/05/20 06:10 80 117/54 L 11/05/20 06:00 37.5 C 92 24 H 122/55 L 99 11/05/20 05:14 94 100 11/05/20 04:07 94 112/52 L 11/05/20 04:00 37.8 C H 94 24 H 112/52 L 99 11/05/20 02:17 93 142/60 H 11/05/20 02:01 90 27 H 11/05/20 02:00 38.0 C H 96 24 H 129/58 L 99 11/05/20 01:58 89 99 11/05/20 01:53 97 26 H 11/05/20 01:07 90 138/58 L 11/05/20 00:07 94 131/56 L 11/05/20
[2020-11-05 20:06] LABS: Glucose Point of Care 151 mg/dl (65-105)
[2020-11-05 20:06] LABS: Glucose Point of Care 139 mg/dl (65-105)
[2020-11-05 20:06] LABS: Glucose Point of Care 161 mg/dl (65-105)
[2020-11-05 20:06] LABS: Glucose Point of Care 145 mg/dl (65-105)
[2020-11-05] MEDS: INSULIN HUMAN REGULAR (*BKC) 100 UNITS in SODIUM CHLORIDE 0.9% IV 99 ML 12.3 UNITS IV CONT (23:10)
[2020-11-05 23:17] LABS: Glucose Point of Care 143 mg/dl (65-105)
[2020-11-05 23:17] LABS: Glucose Point of Care 144 mg/dl (65-105)
[2020-11-05 23:18] LABS: Glucose Point of Care 142 mg/dl (65-105)
[2020-11-05 23:18] LABS: Glucose Point of Care 167 mg/dl (65-105)
[2020-11-06] VITALS (38 sets, daily range): BP systolic 106–144; BP diastolic 50–62; PULSE 67–95; RESP 18–28; TEMP 36.5–37.4; O2SAT 98–100
[2020-11-06] MEDS: HYDROCORTISONE SODIUM SUCCINATE 100 MG/2 ML VIAL IV PUSH ×3 (00:28→16:18)
[2020-11-06] MEDS: HEPARIN SOD/D5W 100 UNITS/ML 25,000 UNITS/250 ML BAG 20 UNITS IV CONT ×2 (01:20→14:00)
[2020-11-06] MEDS: IPRATROPIUM BR 0.02% INH SOLN 0.5 MG/2.5 ML VIAL INHALATION ×3 (02:36→21:02)
[2020-11-06] MEDS: LEVALBUTEROL NEB 1.25 MG/3 ML 0.63 MG INHALATION ×3 (02:36→21:01)
[2020-11-06] MEDS: metroNIDAZOLE 500 MG/ISO 100ML 500 MG/100 ML BAG 100 MG IVPB ×4 (03:00→20:38)
[2020-11-06 03:29] LABS: Glucose Point of Care 136 mg/dl (65-105)
[2020-11-06 04:46] LABS: Alveolar/Arterial O2 Gradient 62.4 mmHg; Carboxyhemoglobin 0.1 % THb (0-2.0); Fractional Inspired Oxygen 30 %; HCO3 ABG 26.4 mEq/l (22.0-26.0); Methemoglobin ABG 0.4 %THb (0-1.5); Oxygen Content ABG 18.9 %vol (16.0-22.0); Oxygen Saturation ABG 98.3 % (95.0-100.0); Oxyhemoglobin 97.2 % THb (90.0-100.0); PCO2 ABG 36.5 mmHg (35.0-45.0); PO2 ABG 108.6 mmHg (80.0-100.0); PO2 FiO2 Ratio Arterial Blood 3.62 %; Reduced Hemoglobin 2.3 %THb (0-5.0); Total Hemoglobin 13.7 g/dL (12.0-18.0); pH ABG 7.477 (7.350-7.450)
[2020-11-06 04:47] LABS: Arterial Blood Gas PEEP 8 cmH2O; Arterial Blood Gas Tidal Volume 380 ml; Arterial Blood Gas Vent Mode CMV; Arterial Blood Gas Ventilator rate 18 /MIN; Device VENTILATOR; Site Drawn ARTLINE
[2020-11-06] MEDS: CENTRAL LINE FLUSH 10 ML IV PUSH ×3 (05:51→21:14)
[2020-11-06] MEDS: SODIUM CHLORIDE 0.9% IV 1,000 ML 50 ML IV CONT (05:51)
[2020-11-06 06:30] LABS: Hematocrit 39.8 % (42.0-52.0); Hemoglobin 12.8 g/dL (14.0-18.0); Mean Corpuscular HGB Conc 32.2 g/dl (32-36); Mean Corpuscular Hemoglobin 26.9 pg (26-34); Mean Corpuscular Volume 83.6 fl (80-100); Platelet Count Result 124 k/mm3 (150-375); Red Blood Count 4.76 M/mm3 (4.6-6.20); Red Cell Distribution Width 14.7 % (11.5-14.5)
[2020-11-06 06:41] LABS: Lactic Acid Reflex 1.3 mmol/L (0.7-2.1)
[2020-11-06 06:42] LABS: Alanine Aminotransferase 25 U/L (4-50); Albumin Level 2.2 g/dL (3.5-5.1); Alkaline Phosphatase 64 U/L (38-126); Anion Gap 3 mmol/L (8-16); Aspartate Amino Transferase 53 U/L (17-59); Bilirubin,Total 0.3 mg/dL (0.2-1.3); Blood Urea Nitrogen 46 mg/dL (9-20); Carbon Dioxide 27 mmol/L (22-30); Chloride 99 mmol/L (98-107); Estimated CRCL calculation 117 ml/min; Estimated Glomerular Filt Rate > 60; Glucose 132 mg/dL (75-110); Magnesium 2.2 mg/dL (1.6-2.3); Phosphorus 2.8 mg/dL (2.5-4.5); Potassium 3.7 mmol/L (3.4-5.0); Sodium 129 mmol/L (137-145)
[2020-11-06 06:53] LABS: Glucose Point of Care 146 mg/dl (65-105)
[2020-11-06 06:53] LABS: Glucose Point of Care 141 mg/dl (65-105)
[2020-11-06 06:53] LABS: Glucose Point of Care 133 mg/dl (65-105)
[2020-11-06 06:53] LABS: Glucose Point of Care 137 mg/dl (65-105)
[2020-11-06 06:53] LABS: Glucose Point of Care 132 mg/dl (65-105)
[2020-11-06 06:53] LABS: Glucose Point of Care 138 mg/dl (65-105)
[2020-11-06 07:25] LABS: Partial Thromboplastin Time 86.6 SECONDS (22.3-36.8)
[2020-11-06] MEDS: INSULIN HUMAN REGULAR (*BKC) 100 UNITS in SODIUM CHLORIDE 0.9% IV 99 ML 15.9 UNITS IV CONT ×2 (07:33→14:00)
[2020-11-06] MEDS: FIDAXOMICIN 200 MG TABLET XX ×2 (08:24→20:39)
[2020-11-06] MEDS: INSULIN GLARGINE (*BKC) 100 UNITS/ML 60 UNITS SUB-Q ×2 (08:24→20:57)
[2020-11-06] MEDS: POTASSIUM CHLORIDE 20 MEQ PACKET (FOR LIQUID) 40 MEQ FEED TUBE (08:24)
[2020-11-06 08:26] LABS: Digoxin 0.7 ng/mL (0.8-2.0)
[2020-11-06] MEDS: MINERAL OIL/WHITE PETROLATUM OINTMENT 1 APPLIC EACH EYE ×2 (08:32→20:39)
[2020-11-06] MEDS: DIGOXIN INJ 250 MCG/ML 2 ML AMP (*BKC) IV PUSH (08:32)
[2020-11-06] MEDS: PANTOPRAZOLE SODIUM IV 40 MG VIAL IV PUSH (08:32)
[2020-11-06] MEDS: CALCIUM CHLOR 1,000MG/100ML NS 1,000 MG/100 ML BAG 100 MG IVPB (08:52)
--- NOTE | 2020-11-06 09:15 | PC.NURSE ---
All medication documentation (i.e.: sedation, insulin, abx, protonix, potassium, dig, calcium) on 11/06/20 from 0824 until 0900 documented under Adela Roth RRT ([facility]) were actually administered by Janneth Zuniga RN ([facility]). Adela Roth was still logged into the [facility] during my medication administration.
--- NOTE | 2020-11-06 10:53 | PCFNICU ---
ICU Rounding Note: Pt current nutrition is Glucerna 1.2 at 60 ml/hr over 22 hours. Last recorded weight is 212.5 kg. Bowel Motility:Fecal containment device. Labs Reviewed:Na 129,BUN 46,Glu 132,Alb 2.2 Meds Noted:Fentanyl, Vancomycin, Insulin, Zosyn, Vasopressin, NS, Protonix, Dificid. Additional Notes: Patient is tolerating tube feedings of Glucerna 1.2 at 75 ml/hr, providing 1980 kcals/99 gms protein/1328 ml water. Banatrol Plus TID with water flush for dietary management of diarrhea. Plans for breathing trial today. Following daily in ICU rounds. Assessing/reassessing every Tuesday and Tuesday.
--- NOTE | 2020-11-06 10:54 | WPDINTPN ---
Progress Note: A&P Assessment and Plan (1) Septic shock: Code(s): A41.9 - Sepsis, unspecified organism; R65.21 - Severe sepsis with septic shock Status: Acute Assessment and Plan: septic shock could be related to C diff colitis. - patient received adequate IV fluids, central line in place - on vasopressin now. Levophed has been weaned off overnight - maintain adequate mean arterial pressure for adequate end organ perfusion. - arterial line placed on 11/02/2020 - appreciate GI and infectious disease evaluation and recommendations. Continue Zosyn, p.o. vancomycin and fidaxomicin - 10/31 stool was positive C diff -10/31: blood cultures were negative x2 -10/31: stool cultures pending -11/01: repeat blood cultures, urine and sputum cultures pending. sputum cultures showing yeast which is likely a colonization - continue hydrocortisone - 25% albumin (2) Acute respiratory failure: Qualifiers: Respiratory failure complication: hypoxia Qualified Code(s): J96.01 - Acute respiratory failure with hypoxia Code(s): J96.00 - Acute respiratory failure, unspecified whether with hypoxia or hypercapnia Status: Acute Assessment and Plan: patient with metabolic encephalopathy likely related to uremia, septic shock, hypotension, infection - patient was intubated on 11/01/2020 - currently on CMV mode of ventilation, peep of 8 in 30% FiO2, adequate O2 sats, wean FiO2 to maintain O2 sats greater than 92% - chest x-ray and ABGs reviewed, - continue tidal volume to 380 and rate to 18 - sedated with fentanyl and Versed infusion. sedation holiday - will attempt a weaning trial today (3) Acute renal failure superimposed on stage 3 chronic kidney disease: Qualifiers: Acute renal failure type: unspecified Qualified Code(s): N17.9 - Acute kidney failure, unspecified; N18.3 - Chronic kidney disease, stage 3 (moderate) Code(s): N17.9 - Acute kidney failure, unspecified; N18.3 - Chronic kidney disease, stage 3 (moderate) Status: Acute Assessment and Plan: acute on chronic kidney disease likely related to hypotension, septic shock, hypovolemia 2nd diarrhea, medications such as spironolactone, torsemide, losartan, Coreg which he takes at home - patient received adequate fluids - 11/01/2020:renal ultrasound Showed normal kidneys and no hydronephrosis - appreciate Nephrology evaluation recommendation - creatinine and BUN improved - rhabdomyolysis, improving CK level - IV sodium bicarb infusion was changed to normal saline yesterday. will hold IV fluids at this time as patient is significantly volume overloaded - replace low potassium, calcium and magnesium (4) Atrial fibrillation: Qualifiers: Atrial fibrillation type: unspecified Qualified Code(s): I48.91 - Unspecified atrial fibrillation Code(s): I48.91 - Unspecified atrial fibrillation Status: Acute Assessment and Plan: patient in AFib, rate controlled. On Eliquis at home which has been held - continue heparin infusion - continue digoxin - digoxin level 0.7 (5) Colitis: Code(s): K52.9 - Noninfective gastroenteritis and colitis, unspecified Status: Acute Assessment and Plan: C diff colitis - NG / OG tube to low intermittent suction - GI, ID and surgery following the patient. Patient's brother declined surgical option continue p.o. vancomycin, fidaxomicin, IV metronidazole - patient has a history of C diff colitis x3 in the past -10/31: stool for C diff is positive - stool culture negative to date (6) Morbid obesity: Code(s): E66.01 - Morbid (severe) obesity due to excess calories Status: Acute Assessment and Plan: chronic morbid obesity (7) Diabetes mellitus with hyperglycemia: Qualifiers: Diabetes mellitus type: type 2 Diabetes mellitus termite helper insulin use: with termite helper use Qualified Code(s): E11.65 - Type 2
[2020-11-06] MEDS: ALBUMIN HUMAN 25% 25 GM/100 ML 100 ML IVPB ×2 (12:14→18:13)
[2020-11-06 13:38] LABS: Glucose Point of Care 145 mg/dl (65-105)
[2020-11-06 13:39] LABS: Glucose Point of Care 148 mg/dl (65-105)
[2020-11-06 13:39] LABS: Glucose Point of Care 161 mg/dl (65-105)
[2020-11-06 13:39] LABS: Glucose Point of Care 171 mg/dl (65-105)
[2020-11-06 13:39] LABS: Glucose Point of Care 158 mg/dl (65-105)
[2020-11-06 13:39] LABS: Glucose Point of Care 139 mg/dl (65-105)
[2020-11-06 13:39] LABS: Glucose Point of Care 139 mg/dl (65-105)
--- NOTE | 2020-11-06 15:45 | WPDGIPROGNO ---
Progress Note: A&P Assessment and Plan (1) C. difficile colitis: Code(s): A04.72 - Enterocolitis due to Clostridium difficile, not specified as recurrent Status: Acute Assessment and Plan: severe C diff with septic shock, able to wean off pressors and overall slowly improving continue on oral vanco, dificid and iv flagyl ID on board, on zosyn for potential infection Rt stump surgery also involved but family member did not want colectomy tolerating tube feeding by OGT (2) Septic shock: Code(s): A41.9 - Sepsis, unspecified organism; R65.21 - Severe sepsis with septic shock Status: Acute Assessment and Plan: improving, weaning off as BP allows (3) Acute respiratory failure: Qualifiers: Respiratory failure complication: hypoxia Qualified Code(s): J96.01 - Acute respiratory failure with hypoxia Code(s): J96.00 - Acute respiratory failure, unspecified whether with hypoxia or hypercapnia Status: Acute Assessment and Plan: by dry cell and battery assembler, now on breathing trial (4) Metabolic encephalopathy: Code(s): G93.41 - Metabolic encephalopathy Status: Acute Assessment and Plan: more awake today (5) Diarrhea: Qualifiers: Diarrhea type: presumed infectious Qualified Code(s): R19.7 - Diarrhea, unspecified Code(s): R19.7 - Diarrhea, unspecified Status: Acute Assessment and Plan: with severe C diff (6) Leukocytosis: Qualifiers: Leukocytosis type: unspecified Qualified Code(s): D72.829 - Elevated white blood cell count, unspecified Code(s): D72.829 - Elevated white blood cell count, unspecified Status: Acute Assessment and Plan: continue to monitor, trending down (7) RADHA (acute kidney injury): Code(s): N17.9 - Acute kidney failure, unspecified Status: Acute Assessment and Plan: creatinine has improved (8) Morbid obesity: Code(s): E66.01 - Morbid (severe) obesity due to excess calories Status: Acute (9) Diabetes mellitus with hyperglycemia: Qualifiers: Diabetes mellitus type: type 2 Diabetes mellitus residential insulin use: with watermelon inspector use Qualified Code(s): E11.65 - Type 2 diabetes mellitus with hyperglycemia; Z79.4 - intermediate school teacher (current) use of insulin Code(s): E11.65 - Type 2 diabetes mellitus with hyperglycemia Status: Acute (10) Amputation stump necrosis: Code(s): T87.50 - Necrosis of amputation stump, unspecified extremity Status: Acute Assessment and Plan: on iv antibiotics Subjective Date/time seen: 11/06/20 15:45 Interval history: he is better today, only in one pressor and more awake- currently undergoing breathing trial. Review of Systems Review of Systems: All systems reviewed & are unremarkable except as noted in HPI and below Exam Const: General: comfortable and no acute distress HENMT: General nose exam: Normal nares present Other: ETT in place Eyes: Sclera: sclerae normal Other: pupils are reactive but sluggish Neck: Neck: supple Resp: Effort & Inspection: normal respiratory effort Auscultation: diminished lung sounds Other: decreased at bases, good air entry Cardio: Rate: tachycardic Rhythm: abnormal rhythm irregularly irregular GI: Inspection: distended GI Palp: Yes Soft to palpation Auscultation: abnormal bowel sounds ( hypoactive bowel sounds) Other: morbid obesity : Other: Abarca catheter in place scrotal edema Urinary Catheter: Urinary Catheter: patent and draining and urine dark Skin: General skin exam: normal color and no rashes or lesions noted Neuro: Other: patient is intubated, sedated, does open his eyes Extrem: General: normal to inspection and edema Other: left AKA right BKA right stump with erythema Psych: Other: unable to assess at this time Objective Data Vital Signs Vital Signs: Vital Signs - 24 hr 11/05/20 15:59
--- NOTE | 2020-11-06 16:15 | P.PNNP_ITS ---
Progress Note: A&P Assessment and Plan (1) RADHA (acute kidney injury): Code(s): N17.9 - Acute kidney failure, unspecified Status: Acute Assessment and Plan: * due to ATN from hemodynamic instability/shock, prerenal factors, and infection/sepsis * renal ultrasound negative * renal function improving in association with better urine output * consider switching all IV drips to normal saline carrier fluid given his low sodium level * follow electrolytes, creatinine, and urine output (2) Metabolic acidosis: Code(s): E87.2 - Acidosis Status: Acute Assessment and Plan: * resolved * secondary to RADHA/ARF and associated issues with diarrhea and dilution * was on bicarbonate fluids to compensate (but now on normal saline) * follow trend (3) Septic shock: Code(s): A41.9 - Sepsis, unspecified organism; R65.21 - Severe sepsis with septic shock Status: Acute Assessment and Plan: * remains on vasopressor therapy * follow culture date - noted to be C. difficile positive; repeat cultures pending * continue broad spectrum antibiotics as outlined by ID (4) HTN (hypertension), malignant: Code(s): I10 - Essential (primary) hypertension Status: Chronic Assessment and Plan: * BP medications on hold due to #3 * follow hemodynamics (5) Diabetes mellitus with hyperglycemia: Qualifiers: Diabetes mellitus type: type 2 Diabetes mellitus termite exterminator helper insulin use: with termite exterminator helper use Qualified Code(s): E11.65 - Type 2 diabetes mellitus with hyperglycemia; Z79.4 - custodial (current) use of insulin Code(s): E11.65 - Type 2 diabetes mellitus with hyperglycemia Status: Acute Assessment and Plan: * follow accuchecks * on insuling gtt Not much else to add... Will continue to follow intermittently. Subjective Date/time seen: 11/06/20 16:15 Remains on mechanical ventilation and levophed was weaned off earlier today; able to nod his head to simple questions; aferbrile for the last 24 hours; continues to make good urine output with improvement in renal function as well; no acute events overnight or earlier this AM. Exam Narrative: Exam Narrative: General: large male in NAD; intubated Heart: normal S1 and S2; no rub Lungs: coarse and decreased at bases Abdomen: soft, nontender, nondistended, hypoactive bowel sounds Extremities: no cyanosis or clubbing; no edema; left AKA and right BKA Skin: no rash noted Objective Data Vital Signs Vital Signs: Vital Signs Temp Pulse Resp BP Pulse Ox 11/06/20 16:00 37.2 C 90 27 H 130/54 L 99 11/06/20 15:08 94 23 H 137/59 L 11/06/20 14:00 37.0 C 93 25 H 137/59 L 99 11/06/20 13:50 95 18 99 11/06/20 13:10 93 28 H 11/06/20 12:18 131/62 11/06/20 12:17 91 27 H 11/06/20 12:00 36.8 C 93 23 H 124/55 L 99 11/06/20 10:58 136/61 11/06/20 10:35 85 100 11/06/20 10:00 36.6 C 82 23 H 125/55 L 98 11/06/20 08:52 92 22 H 11/06/20 08:33 87 21 H 11/06/20 08:32 87 119/54 L 11/06/20 08:20 88 99 11/06/20 08:13 91 24 H 100 11/06/20 08:00 36.5 C 86 22 H 106/50 L 99 11/06/20 06:00 36.7 C 89 20 125/59 L 98 11/06/20 04:50 70 99 11/06/20 04:00 36.7 C 78 21 H 127/54 L 99
--- NOTE | 2020-11-06 16:15 | PM.PNNEP ---
Progress Note: A&P Assessment and Plan (1) RADHA (acute kidney injury): Code(s): N17.9 - Acute kidney failure, unspecified Status: Acute Assessment and Plan: due to ATN from hemodynamic instability/shock, prerenal factors, and infection/sepsis renal ultrasound negative renal function improving in association with better urine output consider switching all IV drips to normal saline carrier fluid given his low sodium level follow electrolytes, creatinine, and urine output (2) Metabolic acidosis: Code(s): E87.2 - Acidosis Status: Acute Assessment and Plan: resolved secondary to RADHA/ARF and associated issues with diarrhea and dilution was on bicarbonate fluids to compensate (but now on normal saline) follow trend (3) Septic shock: Code(s): A41.9 - Sepsis, unspecified organism; R65.21 - Severe sepsis with septic shock Status: Acute Assessment and Plan: remains on vasopressor therapy follow culture date - noted to be C. difficile positive; repeat cultures pending continue broad spectrum antibiotics as outlined by ID (4) HTN (hypertension), malignant: Code(s): I10 - Essential (primary) hypertension Status: Chronic Assessment and Plan: BP medications on hold due to #3 follow hemodynamics (5) Diabetes mellitus with hyperglycemia: Qualifiers: Diabetes mellitus type: type 2 Diabetes mellitus half-way insulin use: with director long term care use Qualified Code(s): E11.65 - Type 2 diabetes mellitus with hyperglycemia; Z79.4 - [facility] (current) use of insulin Code(s): E11.65 - Type 2 diabetes mellitus with hyperglycemia Status: Acute Assessment and Plan: follow accuchecks on insuling gtt Not much else to add... Will continue to follow intermittently. Subjective Date/time seen: 11/06/20 16:15 Remains on mechanical ventilation and levophed was weaned off earlier today; able to nod his head to simple questions; aferbrile for the last 24 hours; continues to make good urine output with improvement in renal function as well; no acute events overnight or earlier this AM. Exam Narrative: Exam Narrative: General: large male in NAD; intubated Heart: normal S1 and S2; no rub Lungs: coarse and decreased at bases Abdomen: soft, nontender, nondistended, hypoactive bowel sounds Extremities: no cyanosis or clubbing; no edema; left AKA and right BKA Skin: no rash noted Objective Data Vital Signs Vital Signs: Vital Signs Temp Pulse Resp BP Pulse Ox 11/06/20 16:00 37.2 C 90 27 H 130/54 L 99 11/06/20 15:08 94 23 H 137/59 L 11/06/20 14:00 37.0 C 93 25 H 137/59 L 99 11/06/20 13:50 95 18 99 11/06/20 13:10 93 28 H 11/06/20 12:18 131/62 11/06/20 12:17 91 27 H 11/06/20 12:00 36.8 C 93 23 H 124/55 L 99 11/06/20 10:58 136/61 11/06/20 10:35 85 100 11/06/20 10:00 36.6 C 82 23 H 125/55 L 98 11/06/20 08:52 92 22 H 11/06/20 08:33 87 21 H 11/06/20 08:32 87 119/54 L 11/06/20 08:20 88 99 11/06/20 08:13 91 24 H 100 11/06/20 08:00 36.5 C 86 22 H 106/50 L 99 11/06/20 06:00 36.7 C 89 20 125/59 L 98 11/06/20 04:50 70 99 11/06/20 04:00 36.7 C 78 21 H 127/54 L 99 11/06/20 02:41 74 99 11/06/20 02:37 67 20 11/06/20 02:00 36.6 C 69 22 H 119/53 L 99 11/06/20 00:26 81 22 H 134/57 L 11/06/20 00:00 36.6 C 76 20 114/51 L 99 11/05/20 23:21 76 99 11/05/20 23:14 142/60 H 11/05/20 22:00 36.6 C 81 20 130/56 L 99 11/05/20 21:12 78 28 H 11/05/20 20:00 36.6 C 80 22 H 135/60 99 11/05/20 19:50 77 99 11/05/20 19:40 80 20 Intake/Output Intake/Output: Intake & Output 11/03/20 11/04/20 11/05/20 11/06/20 23:59 23:59 23:59 23:59 Intake Total 7486.6 5031.6 4476.3 3740.6 Output Total 4050 2625 2150 1900 Balance 3436.6 2406.6 2326.3 1840.6 Me
--- NOTE | 2020-11-06 17:56 | PM.IMPN ---
Progress Note: A&P Assessment and Plan (1) Acute respiratory failure: Qualifiers: Respiratory failure complication: hypoxia Qualified Code(s): J96.01 - Acute respiratory failure with hypoxia Code(s): J96.00 - Acute respiratory failure, unspecified whether with hypoxia or hypercapnia Status: Acute Assessment and Plan: Patient developed respiratory failure requiring intubation 11/01/20. CXR reviewed today and appears congested. Sedation weaned down and he is more awake. On PEEP 8 and FiO2 30%. Wean MV once he is more stable. Appreciate furnace charging machine operator input. (2) Septic shock: Code(s): A41.9 - Sepsis, unspecified organism; R65.21 - Severe sepsis with septic shock Status: Acute Assessment and Plan: Patient with severe septic shock requiring up to 4 pressors. Improved now and currently down to HORTICULTURAL NURSERY ASSISTANT. Norden related to the CDiff. Can not exclude infectious etiology from the right stump. US not showing any fluid collections. Continue Solu-Cortef. Albumin added as well. Continue to wean pressors as BP tolerates. (3) C. difficile colitis: Code(s): A04.72 - Enterocolitis due to Clostridium difficile, not specified as recurrent Status: Acute Assessment and Plan: Patient presents with n/v/d and found to have septic shock. Stool has returned positive for CDiff. KUB 11/04 showing gaseous distention of the colon. WBC trending down now. Continue oral Vanco, oral Fidaxomicin and IV Flagyl. ID following. General surgery also involved in his care but no plans for colectomy especially now that his condition is improving. Appreciate their input. Monitor WBC. Monitor stool output. (4) Leukocytosis: Qualifiers: Leukocytosis type: unspecified Qualified Code(s): D72.829 - Elevated white blood cell count, unspecified Code(s): D72.829 - Elevated white blood cell count, unspecified Status: Acute Assessment and Plan: WBC 34K on admission and climbed to 38K before trending down now. Related to CDiff colitis. (5) RADHA (acute kidney injury): Code(s): N17.9 - Acute kidney failure, unspecified Status: Acute Assessment and Plan: Cr 2.4 on admission but increased to 4.6 related to ATN from sepsis and HoTN. Cr 1.0 in August 2020. Spironolactone and torsemide on hold. Cr trending down now to 1.1 today. Good UOP. Follow. (6) Diabetes mellitus with hyperglycemia: Qualifiers: Diabetes mellitus marine oil terminal superintendent insulin use: with marine oil terminal superintendent use Diabetes mellitus type: type 2 Qualified Code(s): E11.65 - Type 2 diabetes mellitus with hyperglycemia; Z79.4 - exterminator helper termite (current) use of insulin Code(s): E11.65 - Type 2 diabetes mellitus with hyperglycemia Status: Acute Assessment and Plan: A1c 8.6. Glucose reviewed on 11/06. Controlled with insulin drip. Follow closely. (7) Atrial fibrillation: Qualifiers: Atrial fibrillation type: unspecified chronic Qualified Code(s): I48.20 - Chronic atrial fibrillation, unspecified Code(s): I48.91 - Unspecified atrial fibrillation Status: Acute Assessment and Plan: Patient with chronic AFib. Mildly tachycardic related to the HoTN and fever but better today. Dig level 0.7. Continue Heparin gtt. Continue Digoxin. (8) Electrolyte abnormality: Code(s): E87.8 - Other disorders of electrolyte and fluid balance, not elsewhere classified Status: Acute Assessment and Plan: Potassium low at 3.7 and Na 129. Calcium 7.0 (calculated 8.4). Mag/Phos normal. Related to diarrhea. Continue to replace electrolytes as needed. (9) Metabolic encephalopathy: Code(s): G93.41 - Metabolic encephalopathy Status: Acute Assessment and Plan: CT brain 11/01 showing no acute findings. Patient's sedation being weaned. He appears to comprehend. Monitor closely (10) DARIN (obstructive sleep apnea): Code
[2020-11-06 19:05] LABS: Glucose Point of Care 166 mg/dl (65-105)
[2020-11-06 19:06] LABS: Glucose Point of Care 166 mg/dl (65-105)
[2020-11-06 19:06] LABS: Glucose Point of Care 168 mg/dl (65-105)
[2020-11-06 19:06] LABS: Glucose Point of Care 188 mg/dl (65-105)
[2020-11-06 19:06] LABS: Glucose Point of Care 156 mg/dl (65-105)
[2020-11-06 19:06] LABS: Glucose Point of Care 140 mg/dl (65-105)
[2020-11-06] MEDS: INSULIN HUMAN REGULAR (*BKC) 100 UNITS in SODIUM CHLORIDE 0.9% IV 99 ML 17 UNITS IV CONT (20:23)
[2020-11-06 21:25] LABS: Glucose Point of Care 181 mg/dl (65-105)
[2020-11-06 21:25] LABS: Glucose Point of Care 178 mg/dl (65-105)
[2020-11-07] VITALS (34 sets, daily range): BP systolic 134–182; BP diastolic 51–77; PULSE 64–91; RESP 15–29; TEMP 37.1–37.4; O2SAT 92–100
[2020-11-07] MEDS: ALBUMIN HUMAN 25% 25 GM/100 ML 100 ML IVPB ×5 (00:16→23:06)
[2020-11-07] MEDS: HYDROCORTISONE SODIUM SUCCINATE 100 MG/2 ML VIAL IV PUSH ×4 (00:17→23:13)
[2020-11-07] MEDS: FENTANYL 2,500MCG/NS250ML(*CRX 2,500 MCG/250 ML BAG 7.5 MCG IV CONT (00:22)
[2020-11-07] MEDS: INSULIN HUMAN REGULAR (*BKC) 100 UNITS in SODIUM CHLORIDE 0.9% IV 99 ML 19.7 UNITS IV CONT (01:06)
[2020-11-07 02:23] LABS: Glucose Point of Care 176 mg/dl (65-105)
[2020-11-07 02:23] LABS: Glucose Point of Care 177 mg/dl (65-105)
[2020-11-07 02:23] LABS: Glucose Point of Care 160 mg/dl (65-105)
[2020-11-07 02:23] LABS: Glucose Point of Care 176 mg/dl (65-105)
[2020-11-07] MEDS: metroNIDAZOLE 500 MG/ISO 100ML 500 MG/100 ML BAG 100 MG IVPB ×4 (02:28→20:15)
[2020-11-07] MEDS: HEPARIN SOD/D5W 100 UNITS/ML 25,000 UNITS/250 ML BAG 20 UNITS IV CONT ×2 (02:34→15:21)
[2020-11-07] MEDS: LEVALBUTEROL NEB 1.25 MG/3 ML 0.63 MG INHALATION ×4 (03:17→20:15)
[2020-11-07] MEDS: IPRATROPIUM BR 0.02% INH SOLN 0.5 MG/2.5 ML VIAL INHALATION ×4 (03:17→20:15)
[2020-11-07 04:44] LABS: Alveolar/Arterial O2 Gradient 62.6 mmHg; Base Excess ABG 1.5 mEq/l (+/-2.0); Carboxyhemoglobin 0.3 % THb (0-2.0); Fractional Inspired Oxygen 30 %; HCO3 ABG 25.4 mEq/l (22.0-26.0); Methemoglobin ABG 0.4 %THb (0-1.5); Oxygen Saturation ABG 98.1 % (95.0-100.0); Oxyhemoglobin 96.6 % THb (90.0-100.0); PCO2 ABG 37.4 mmHg (35.0-45.0); PO2 ABG 107.4 mmHg (80.0-100.0); PO2 FiO2 Ratio Arterial Blood 3.58 %; Reduced Hemoglobin 2.7 %THb (0-5.0); Total Hemoglobin 11.7 g/dL (12.0-18.0)
[2020-11-07 04:45] LABS: Arterial Blood Gas Vent Mode CMV; Arterial Blood Gas Ventilator rate 18 /MIN; Device VENTILATOR; Site Drawn ARTLINE
[2020-11-07 04:46] LABS: Arterial Blood Gas PEEP 8 cmH2O; Arterial Blood Gas Tidal Volume 380 ml
[2020-11-07 04:48] LABS: Hematocrit 34.8 % (42.0-52.0); Mean Corpuscular HGB Conc 31.6 g/dl (32-36); Mean Corpuscular Hemoglobin 26.7 pg (26-34); Mean Corpuscular Volume 84.5 fl (80-100); Mean Platelet Volume 10.5 fl (7.4-10.4); Platelet Count Result 134 k/mm3 (150-375); Red Blood Count 4.12 M/mm3 (4.6-6.20); Red Cell Distribution Width 14.7 % (11.5-14.5)
[2020-11-07 04:57] LABS: Lactic Acid Reflex 1.3 mmol/L (0.7-2.1)
[2020-11-07 05:00] LABS: Alanine Aminotransferase 23 U/L (4-50); Albumin Level 2.9 g/dL (3.5-5.1); Alkaline Phosphatase 57 U/L (38-126); Anion Gap 7 mmol/L (8-16); Aspartate Amino Transferase 40 U/L (17-59); Bilirubin,Total 0.5 mg/dL (0.2-1.3); Blood Urea Nitrogen 42 mg/dL (9-20); Calcium 7.7 mg/dL (8.4-10.2); Carbon Dioxide 27 mmol/L (22-30); Chloride 97 mmol/L (98-107); Estimated CRCL calculation 117 ml/min; Estimated Glomerular Filt Rate > 60; Glucose 153 mg/dL (75-110); Magnesium 2.2 mg/dL (1.6-2.3); Phosphorus 2.2 mg/dL (2.5-4.5); Potassium 3.5 mmol/L (3.4-5.0); Sodium 131 mmol/L (137-145)
[2020-11-07] MEDS: CENTRAL LINE FLUSH 10 ML IV PUSH ×3 (05:27→20:18)
[2020-11-07 05:45] LABS: Partial Thromboplastin Time 83.7 SECONDS (22.3-36.8)
[2020-11-07 06:22] LABS: Ionized Calcium 4.2 mg/dL (4.8-5.6)
[2020-11-07] MEDS: INSULIN HUMAN REGULAR (*BKC) 100 UNITS in SODIUM CHLORIDE 0.9% IV 99 ML 17.9 UNITS IV CONT (06:30)
[2020-11-07 06:55] LABS: Glucose Point of Care 165 mg/dl (65-105)
[2020-11-07 06:55] LABS: Glucose Point of Care 166 mg/dl (65-105)
[2020-11-07 06:55] LABS: Glucose Point of Care 154 mg/dl (65-105)
[2020-11-07 06:55] LABS: Glucose Point of Care 153 mg/dl (65-105)
[2020-11-07 06:55] LABS: Glucose Point of Care 145 mg/dl (65-105)
[2020-11-07] MEDS: PANTOPRAZOLE SODIUM IV 40 MG VIAL IV PUSH (08:28)
[2020-11-07] MEDS: DIGOXIN INJ 250 MCG/ML 2 ML AMP (*BKC) IV PUSH (08:30)
[2020-11-07] MEDS: INSULIN GLARGINE (*BKC) 100 UNITS/ML 60 UNITS SUB-Q ×2 (08:32→20:15)
[2020-11-07] MEDS: FIDAXOMICIN 200 MG TABLET XX ×2 (08:33→20:17)
[2020-11-07] MEDS: MINERAL OIL/WHITE PETROLATUM OINTMENT 1 APPLIC EACH EYE (08:33)
--- NOTE | 2020-11-07 08:36 | WPDINTPN ---
Progress Note: A&P Assessment and Plan (1) Septic shock: Code(s): A41.9 - Sepsis, unspecified organism; R65.21 - Severe sepsis with septic shock Status: Acute Assessment and Plan: septic shock could be related to C diff colitis. - patient received adequate IV fluids, central line in place - off all pressors at this time. IV fluids have been discontinued - maintain adequate mean arterial pressure for adequate end organ perfusion. - arterial line placed on 11/02/2020 which L removed today if patient is able to be extubated - appreciate GI and infectious disease evaluation and recommendations. Continue Zosyn, p.o. vancomycin and fidaxomicin - 10/31 stool was positive C diff -10/31: blood cultures were negative x2 -10/31: stool cultures pending -11/01: repeat blood cultures, urine and sputum cultures pending. sputum cultures showing yeast which is likely a colonization - continue 25% albumin - DC hydrocortisone (2) Acute respiratory failure: Qualifiers: Respiratory failure complication: hypoxia Qualified Code(s): J96.01 - Acute respiratory failure with hypoxia Code(s): J96.00 - Acute respiratory failure, unspecified whether with hypoxia or hypercapnia Status: Acute Assessment and Plan: patient with metabolic encephalopathy likely related to uremia, septic shock, hypotension, infection - patient was intubated on 11/01/2020 - currently on CMV mode of ventilation, peep of 8 in 30% FiO2, adequate O2 sats, wean FiO2 to maintain O2 sats greater than 92% - chest x-ray and ABGs reviewed, - continue tidal volume to 380 and rate to 18 - sedated with fentanyl and Versed infusion. sedation holiday - will attempt a weaning trial today (3) Acute renal failure superimposed on stage 3 chronic kidney disease: Qualifiers: Acute renal failure type: unspecified Qualified Code(s): N17.9 - Acute kidney failure, unspecified; N18.3 - Chronic kidney disease, stage 3 (moderate) Code(s): N17.9 - Acute kidney failure, unspecified; N18.3 - Chronic kidney disease, stage 3 (moderate) Status: Acute Assessment and Plan: acute on chronic kidney disease likely related to hypotension, septic shock, hypovolemia 2nd diarrhea, medications such as spironolactone, torsemide, losartan, Coreg which he takes at home - patient received adequate fluids - 11/01/2020:renal ultrasound Showed normal kidneys and no hydronephrosis - appreciate Nephrology evaluation recommendation - creatinine and BUN improved - rhabdomyolysis has improved - replace low potassium and phosphate (4) Atrial fibrillation: Qualifiers: Atrial fibrillation type: unspecified Qualified Code(s): I48.91 - Unspecified atrial fibrillation Code(s): I48.91 - Unspecified atrial fibrillation Status: Acute Assessment and Plan: patient in AFib, rate controlled. On Eliquis at home which has been held - continue heparin infusion - continue digoxin - digoxin level 0.7 (5) Colitis: Code(s): K52.9 - Noninfective gastroenteritis and colitis, unspecified Status: Acute Assessment and Plan: C diff colitis - NG / OG tube to low intermittent suction - GI, ID and surgery following the patient. Patient's brother declined surgical option continue p.o. vancomycin, fidaxomicin, IV metronidazole - patient has a history of C diff colitis x3 in the past -10/31: stool for C diff is positive - stool culture negative to date (6) Morbid obesity: Code(s): E66.01 - Morbid (severe) obesity due to excess calories Status: Acute Assessment and Plan: chronic morbid obesity (7) Diabetes mellitus with hyperglycemia: Qualifiers: Diabetes mellitus type: type 2 Diabetes mellitus custodial insulin use: with exterminator termite use Qualified Code(s): E11.65 - Type 2 diabetes mellitus with hyperglycemia; Z79.4 - longterm (current) use of insulin Code(s): E11
[2020-11-07] MEDS: POTASSIUM PHOS,M-BASIC-D-BASIC 20 MMOL in SODIUM CHLORIDE 0.9% IV 250 ML 64.17 MMOL IVPB (09:40)
[2020-11-07 09:42] LABS: Alveolar/Arterial O2 Gradient 81.7 mmHg; Base Excess ABG 1.3 mEq/l (+/-2.0); Fractional Inspired Oxygen 30 %; Oxygen Content ABG 16.1 %vol (16.0-22.0); Oxygen Saturation ABG 97.2 % (95.0-100.0); Oxyhemoglobin 95.8 % THb (90.0-100.0); PCO2 ABG 36.5 mmHg (35.0-45.0); PO2 ABG 89.3 mmHg (80.0-100.0); PO2 FiO2 Ratio Arterial Blood 2.98 %; Total Hemoglobin 11.9 g/dL (12.0-18.0); pH ABG 7.454 (7.350-7.450)
[2020-11-07 09:44] LABS: Arterial Blood Gas Ventilator rate 0 /MIN; Device VENTILATOR; Site Drawn ARTLINE
[2020-11-07 09:45] LABS: Arterial Blood Gas Minute Volume 0 LPM; Arterial Blood Gas PEEP 5 cmH2O; Arterial Blood Gas Pressure Support 5 cmH2O; Arterial Blood Gas Tidal Volume 0 ml; Arterial Blood Gas Vent Mode SPONTANEOUS; Peak Inspiratory Pressure 0 cmH2O
--- NOTE | 2020-11-07 10:29 | PCNFU ---
Nutrition Follow-Up Complete: Altered GI function related to Clostridium Difficile as evidenced by diarrhea and recommended bowel rest. Goal: Patient to meet estimated nutritional needs. Patient is progressing towards goal. We will continue current goal. Pt current nutrition is NPO. Nutrition recommendation: Advancing diet as tolerated to DBCC per MD orders. Last recorded weight is 214.7 kg, up from 201.5 kg on admit. Bowel Motility:fecal contamination device. Labs Reviewed:Glu 153, BUN 42, Na 131, Hct 34.8.Hgb 11.0 Meds Noted:Dificid, Lantus, Heparin, regular insulin, Protonix, Zosyn, Potassium Phosphate. Additional Notes: Tube feeding currently on hold for extubation today. Recommend changing Banatrol Plus over to PO TID if diet order advances. Monitor patient's labs, medications, weight and oral intake every 3 days and daily during ICU rounds. Will monitor every 3 days and daily during ICU rounds.
[2020-11-07] MEDS: MORPHINE SULFATE (*CRX) 2 MG/ML INJ IV PUSH ×2 (12:06→23:12)
[2020-11-07] MEDS: INSULIN HUMAN REGULAR (*BKC) 100 UNITS in SODIUM CHLORIDE 0.9% IV 99 ML 15.7 UNITS IV CONT (12:09)
[2020-11-07 14:00] LABS: Glucose Point of Care 150 mg/dl (65-105)
[2020-11-07 14:00] LABS: Glucose Point of Care 137 mg/dl (65-105)
[2020-11-07 14:00] LABS: Glucose Point of Care 154 mg/dl (65-105)
[2020-11-07 14:00] LABS: Glucose Point of Care 166 mg/dl (65-105)
[2020-11-07 14:00] LABS: Glucose Point of Care 172 mg/dl (65-105)
[2020-11-07 14:00] LABS: Glucose Point of Care 153 mg/dl (65-105)
[2020-11-07 14:00] LABS: Glucose Point of Care 152 mg/dl (65-105)
--- NOTE | 2020-11-07 14:02 | WPDGIPROGNO ---
Progress Note: A&P Assessment and Plan (1) C. difficile colitis: Code(s): A04.72 - Enterocolitis due to Clostridium difficile, not specified as recurrent Status: Acute Assessment and Plan: severe C diff with septic shock finally off pressors and better, also was extubated today ID on board, on zosyn for potential infection Rt stump family member did not want colectomy ok to start feeding when more awake as tolerated (2) Septic shock: Code(s): A41.9 - Sepsis, unspecified organism; R65.21 - Severe sepsis with septic shock Status: Acute Assessment and Plan: resolved (3) Acute respiratory failure: Qualifiers: Respiratory failure complication: hypoxia Qualified Code(s): J96.01 - Acute respiratory failure with hypoxia Code(s): J96.00 - Acute respiratory failure, unspecified whether with hypoxia or hypercapnia Status: Acute Assessment and Plan: extubated this morning (4) Metabolic encephalopathy: Code(s): G93.41 - Metabolic encephalopathy Status: Acute Assessment and Plan: awake and talking (5) Diarrhea: Qualifiers: Diarrhea type: presumed infectious Qualified Code(s): R19.7 - Diarrhea, unspecified Code(s): R19.7 - Diarrhea, unspecified Status: Acute Assessment and Plan: with severe C diff (6) Leukocytosis: Qualifiers: Leukocytosis type: unspecified Qualified Code(s): D72.829 - Elevated white blood cell count, unspecified Code(s): D72.829 - Elevated white blood cell count, unspecified Status: Acute Assessment and Plan: today is normal (7) RADHA (acute kidney injury): Code(s): N17.9 - Acute kidney failure, unspecified Status: Acute Assessment and Plan: creatinine is normal now (8) Morbid obesity: Code(s): E66.01 - Morbid (severe) obesity due to excess calories Status: Acute (9) Diabetes mellitus with hyperglycemia: Qualifiers: Diabetes mellitus type: type 2 Diabetes mellitus correction insulin use: with equipment operator intermodal yard use Qualified Code(s): E11.65 - Type 2 diabetes mellitus with hyperglycemia; Z79.4 - terminal manager (current) use of insulin Code(s): E11.65 - Type 2 diabetes mellitus with hyperglycemia Status: Acute (10) Amputation stump necrosis: Code(s): T87.50 - Necrosis of amputation stump, unspecified extremity Status: Acute Assessment and Plan: on iv antibiotics Subjective Date/time seen: 11/07/20 14:02 Interval history: he is better, finally extubated and talking, off pressors. Review of Systems Review of Systems: All systems reviewed & are unremarkable except as noted in HPI and below Exam Const: General: comfortable, no acute distress and ill appearing chronically Nutritional Appearance: obese HENMT: Other: ETT in place Eyes: Sclera: sclerae normal Neck: Neck: supple Resp: Effort & Inspection: normal respiratory effort Auscultation: diminished lung sounds Cardio: Rate: tachycardic Rhythm: abnormal rhythm irregularly irregular GI: Inspection: distended GI Palp: No Guarding due to palpation present (GI) Auscultation: abnormal bowel sounds ( hypoactive bowel sounds) Other: morbid obesity : Other: Abarca catheter in place Urinary Catheter: Urinary Catheter: patent and draining Neuro: Other: he is awake, recently extubated Extrem: General: normal to inspection and edema Other: left AKA right BKA right stump with erythema Psych: Other: awake Objective Data Vital Signs Vital Signs: Vital Signs - 24 hr 11/06/20 15:08 11/06/20 16:00 11/06/20 16:16 Temperature 98.9 F Pulse Rate 94 90 88 Respiratory Rate 23 H 27 H 25 H Blood Pressure 137/59 L 130/54 L 143/57 H Pulse Oximetry 99 11/06/20 16:17 11/06/20 17:20 11/06/20 18:00 Temperature 99.2 F Pulse Rate 88 92 88 Respiratory Rate 25 H 24 H Blood Pressure 133/55 L Pulse Oximetry 100
--- NOTE | 2020-11-07 19:10 | PM.IMPN ---
Progress Note: A&P Assessment and Plan (1) Acute respiratory failure: Qualifiers: Respiratory failure complication: hypoxia Qualified Code(s): J96.01 - Acute respiratory failure with hypoxia Code(s): J96.00 - Acute respiratory failure, unspecified whether with hypoxia or hypercapnia Status: Acute Assessment and Plan: Patient developed respiratory failure requiring intubation 11/01/20. He stabilized and able to wean off pressors then able to be extubated. He is doing well on RA. Appreciate patient services representative input. (2) Septic shock: Code(s): A41.9 - Sepsis, unspecified organism; R65.21 - Severe sepsis with septic shock Status: Acute Assessment and Plan: Patient with severe septic shock requiring up to 4 pressors. Jenners related to the CDiff. Can not exclude infectious etiology from the right stump but felt less likely. US not showing any fluid collections. Jenners stump skin breakdown related to the HoTN/ischemia. Able to wean off pressors. Continue Solu-Cortef and wean as toelrated. Albumin added as well. (3) C. difficile colitis: Code(s): A04.72 - Enterocolitis due to Clostridium difficile, not specified as recurrent Status: Acute Assessment and Plan: Patient presents with n/v/d and found to have septic shock. Stool has returned positive for CDiff. KUB 11/04 showing gaseous distention of the colon. WBC trending to normal and stool output decling. Continue oral Vanco, oral Fidaxomicin and IV Flagyl. ID following. General surgery also involved in his care but no plans for colectomy especially now that his condition is improving and patient/brother refused. Appreciate GenSurg input. Monitor WBC. Monitor stool output. (4) Leukocytosis: Qualifiers: Leukocytosis type: unspecified Qualified Code(s): D72.829 - Elevated white blood cell count, unspecified Code(s): D72.829 - Elevated white blood cell count, unspecified Status: Acute Assessment and Plan: WBC 34K on admission and climbed to 38K before trending down to 10K. Related to CDiff colitis. (5) RADHA (acute kidney injury): Code(s): N17.9 - Acute kidney failure, unspecified Status: Acute Assessment and Plan: Cr 2.4 on admission but increased to 4.6 related to ATN from sepsis and HoTN. Cr 1.0 in August 2020. Spironolactone and torsemide on hold. Cr trending down now to 1.1 today. Good UOP. Follow. (6) Diabetes mellitus with hyperglycemia: Qualifiers: Diabetes mellitus type: type 2 Diabetes mellitus manager intermediate insulin use: with senior care use Qualified Code(s): E11.65 - Type 2 diabetes mellitus with hyperglycemia; Z79.4 - intermodal truck driver (current) use of insulin Code(s): E11.65 - Type 2 diabetes mellitus with hyperglycemia Status: Acute Assessment and Plan: A1c 8.6. Glucose reviewed on 11/07. Hyperglycemia complicated by steroids. Controlled with insulin drip and Lanus. Follow closely. (7) Atrial fibrillation: Qualifiers: Atrial fibrillation type: unspecified chronic Qualified Code(s): I48.20 - Chronic atrial fibrillation, unspecified Code(s): I48.91 - Unspecified atrial fibrillation Status: Acute Assessment and Plan: Patient with chronic AFib. Dig level 0.7. Continue Heparin gtt. Continue Digoxin. (8) Electrolyte abnormality: Code(s): E87.8 - Other disorders of electrolyte and fluid balance, not elsewhere classified Status: Acute Assessment and Plan: Potassium low at 3.5 and Na 1231. Calcium 7.7. Mag normal but Phos 2.2. Related to diarrhea. Continue to replace electrolytes as needed. (9) Metabolic encephalopathy: Code(s): G93.41 - Metabolic encephalopathy Status: Acute Assessment and Plan: CT brain 11/01 showing no acute findings. Patient's sedation weaned off. He is awake and alert. Monitor closely (10) DARIN (obstructive sl
--- NOTE | 2020-11-07 20:38 | WPDINFPN2 ---
Progress Note: A&P Additional Plan 1. Sepsis secondary to Clostridium difficile colitis. Stool for C diff toxin was positive. CT scan of the abdomen and pelvis showed inflammatory changes consistent with colitis extending from the transverse colon to the sigmoid colon. The patient also showing systemic manifestation of the colitis including septic shock associated with acute renal failure. patient is currently on Dificid p.o. and Flagyl IV day 6. Vancomycin p.o. day 5. patient is currently extubated and off pressors. White count is within normal limit. Clinically doing much better 2. Septic shock most likely secondary to Clostridium difficile colitis. Secondary bacterial infection is always a concern with an inflamed colon. Patient is also on Zosyn for possible secondary infection. Blood cultures are negative. Right stump site signs of ecchymoses and early skin breakdown. Continue Zosyn day 6 of 7. may consider stopping Zosyn in the next 24 hours 3. Acute renal failure most likely secondary to septic shock. Creatinine has improved to 1.4. Avoid nephrotoxic agents. 4. Respiratory failure currently extubated.. . Subjective Date/time seen: 11/07/20 20:38 Exam Narrative: Exam Narrative: patient is extubated Neck: Neck: normal visual inspection Chest: Chest palpation & inspection: normal inspection of the chest Resp: Effort & Inspection: normal respiratory effort Cardio: Rate: regular rate Heart sounds: S1 normal heart sound present and S2 normal heart sound present GI: Inspection: normal to inspection GI Palp: Yes abdominal tenderness Extrem: Right lower extremity: normal to inspection ( right lower extremity stump sites skin breakdown with superficial open ulc) Objective Data Vital Signs Vital Signs: Vital Signs - 24 hr 11/06/20 21:00 11/06/20 21:02 11/06/20 21:10 Temperature Pulse Rate 91 87 90 Respiratory Rate 28 H 25 H 23 H Blood Pressure 144/56 H Pulse Oximetry 11/06/20 22:00 11/06/20 23:25 11/07/20 00:00 Temperature 37.4 C 37.3 C Pulse Rate 90 85 91 Respiratory Rate 24 H 24 H Blood Pressure 131/53 L 134/54 L Pulse Oximetry 99 99 99 11/07/20 00:20 11/07/20 00:22 11/07/20 02:00 Temperature 37.3 C Pulse Rate 91 91 79 Respiratory Rate 26 H 26 H 23 H Blood Pressure 137/53 L Pulse Oximetry 99 11/07/20 02:15 11/07/20 03:18 11/07/20 03:24 Temperature Pulse Rate 74 74 77 Respiratory Rate 22 H 23 H Blood Pressure Pulse Oximetry 99 11/07/20 04:00 11/07/20 04:53 11/07/20 05:57 Temperature 37.3 C Pulse Rate 84 84 82 Respiratory Rate 24 H 22 H Blood Pressure 137/51 L Pulse Oximetry 99 100 11/07/20 06:00 11/07/20 08:00 11/07/20 08:16 Temperature 37.2 C 37.3 C Pulse Rate 82 81 88 Respiratory Rate 23 H 23 H 23 H Blood Pressure 144/54 H 141/53 H Pulse Oximetry 99 99 11/07/20 08:17 11/07/20 08:18 11/07/20 08:26 Temperature Pulse Rate 73 73 87 Respiratory Rate 26 H 26 H 25 H Blood Pressure Pulse Oximetry 11/07/20 08:30 11/07/20 10:00 11/07/20 10:30 Temperature 37.3 C Pulse Rate 85 79 Respiratory Rate 26 H Blood Pressure 164/59 H Pulse Oximetry 99 99 98 11/07/20 11:25 11/07/20 12:00 11/07/20 12:18 Temperature 37.4 C Pulse Rate 75 68 Respiratory Rate 26 H 15 Blood Pressure 152/53 H Pulse Oximetry 98 99 11/07/20 13:37 11/07/20 13:54 11/07/20 14:00 Temperature 37.3 C Pulse Rate 88 87 72 Respiratory Rate 23 H 25 H 27 H Blood Pressure 148/58 H Pulse Oximetry 98 11/07/20 15:30 11/07/20 16:00 11/07/20 17:57 Temperature 37.2 C 37.1 C Pulse Rate 72 75 70 Respiratory Rate 17 27 H Blood Pressure 148/55 H 170/77 H Pulse Oximetry 96 95 96 11/07/20 18:00 11/07/20 20:15 Temperature Pulse Rate 70 68 Respiratory Rate 16 Blood Pressure Pulse Oximetry Intake/Output Intake/Output: Intake & Output 11/04/20 11/05/20 11/06/20 11/07/20 23:59 23:59 23:59 23:59 Intake
[2020-11-07] MEDS: INSULIN HUMAN REGULAR (*BKC) 100 UNITS in SODIUM CHLORIDE 0.9% IV 99 ML 11.6 UNITS IV CONT (21:24)
[2020-11-07] MEDS: hydrALAZINE HCL 20 MG/ML VIAL IV PUSH (22:13)
[2020-11-08] VITALS (19 sets, daily range): BP systolic 149–197; BP diastolic 50–124; PULSE 65–117; RESP 14–41; TEMP 36.8–37.8; O2SAT 92–98
[2020-11-08 01:21] LABS: Glucose Point of Care 140 mg/dl (65-105)
[2020-11-08 01:21] LABS: Glucose Point of Care 131 mg/dl (65-105)
[2020-11-08 01:21] LABS: Glucose Point of Care 130 mg/dl (65-105)
[2020-11-08 01:21] LABS: Glucose Point of Care 124 mg/dl (65-105)
[2020-11-08 01:21] LABS: Glucose Point of Care 130 mg/dl (65-105)
[2020-11-08 01:21] LABS: Glucose Point of Care 125 mg/dl (65-105)
[2020-11-08 01:22] LABS: Glucose Point of Care 125 mg/dl (65-105)
[2020-11-08 01:22] LABS: Glucose Point of Care 128 mg/dl (65-105)
[2020-11-08 01:22] LABS: Glucose Point of Care 134 mg/dl (65-105)
[2020-11-08 01:22] LABS: Glucose Point of Care 117 mg/dl (65-105)
[2020-11-08 01:22] LABS: Glucose Point of Care 131 mg/dl (65-105)
[2020-11-08] MEDS: hydrALAZINE HCL 20 MG/ML VIAL IV PUSH ×3 (03:10→22:50)
[2020-11-08] MEDS: metroNIDAZOLE 500 MG/ISO 100ML 500 MG/100 ML BAG 100 MG IVPB ×4 (03:10→20:05)
[2020-11-08] MEDS: MORPHINE SULFATE (*CRX) 2 MG/ML INJ IV PUSH ×2 (03:26→20:01)
[2020-11-08] MEDS: IPRATROPIUM BR 0.02% INH SOLN 0.5 MG/2.5 ML VIAL INHALATION ×4 (03:30→20:39)
[2020-11-08] MEDS: LEVALBUTEROL NEB 1.25 MG/3 ML 0.63 MG INHALATION ×4 (03:30→20:39)
[2020-11-08] MEDS: HEPARIN SOD/D5W 100 UNITS/ML 25,000 UNITS/250 ML BAG 20 UNITS IV CONT (04:47)
[2020-11-08] MEDS: ALBUMIN HUMAN 25% 25 GM/100 ML 100 ML IVPB ×2 (05:05→11:33)
[2020-11-08] MEDS: CENTRAL LINE FLUSH 10 ML IV PUSH ×3 (05:05→20:06)
[2020-11-08 05:59] LABS: Glucose Point of Care 124 mg/dl (65-105)
[2020-11-08 06:00] LABS: Glucose Point of Care 119 mg/dl (65-105)
[2020-11-08 06:00] LABS: Glucose Point of Care 111 mg/dl (65-105)
[2020-11-08 06:00] LABS: Glucose Point of Care 114 mg/dl (65-105)
[2020-11-08 06:00] LABS: Hematocrit 34.4 % (42.0-52.0); Hemoglobin 10.9 g/dL (14.0-18.0); Mean Corpuscular HGB Conc 31.7 g/dl (32-36); Mean Corpuscular Volume 85.4 fl (80-100); Mean Platelet Volume 10.2 fl (7.4-10.4); Platelet Count Result 196 k/mm3 (150-375); Red Blood Count 4.03 M/mm3 (4.6-6.20); White Blood Count 13.3 K/mm3 (4.5-10.0)
[2020-11-08 06:00] LABS: Glucose Point of Care 116 mg/dl (65-105)
[2020-11-08] MEDS: INSULIN HUMAN REGULAR (*BKC) 100 UNITS in SODIUM CHLORIDE 0.9% IV 99 ML 9 UNITS IV CONT (06:07)
[2020-11-08 06:12] LABS: Alanine Aminotransferase 27 U/L (4-50); Albumin Level 3.4 g/dL (3.5-5.1); Alkaline Phosphatase 41 U/L (38-126); Anion Gap 8 mmol/L (8-16); Aspartate Amino Transferase 48 U/L (17-59); Bilirubin,Total 0.6 mg/dL (0.2-1.3); Blood Urea Nitrogen 40 mg/dL (9-20); Calcium 8.1 mg/dL (8.4-10.2); Carbon Dioxide 28 mmol/L (22-30); Chloride 99 mmol/L (98-107); Estimated CRCL calculation 118 ml/min; Estimated Glomerular Filt Rate > 60; Glucose 111 mg/dL (65-110); Magnesium 2.3 mg/dL (1.6-2.3); Phosphorus 2.5 mg/dL (2.5-4.5); Potassium 3.3 mmol/L (3.4-5.0); Sodium 135 mmol/L (137-145)
[2020-11-08 06:51] LABS: Partial Thromboplastin Time > 200.0 SECONDS (22.3-36.8)
--- NOTE | 2020-11-08 08:18 | WPDINTPN ---
Progress Note: A&P Assessment and Plan (1) Septic shock: Code(s): A41.9 - Sepsis, unspecified organism; R65.21 - Severe sepsis with septic shock Status: Acute Assessment and Plan: septic shock could be related to C diff colitis. - off all pressors at this time. IV fluids have been discontinued - appreciate GI and infectious disease evaluation and recommendations. Continue Zosyn, p.o. vancomycin and fidaxomicin - 10/31 stool was positive C diff -10/31: blood cultures were negative x2 -10/31: stool cultures pending -11/01: repeat blood cultures, urine and sputum cultures pending. sputum cultures showing yeast which is likely a colonization - resolved (2) Acute respiratory failure: Qualifiers: Respiratory failure complication: hypoxia Qualified Code(s): J96.01 - Acute respiratory failure with hypoxia Code(s): J96.00 - Acute respiratory failure, unspecified whether with hypoxia or hypercapnia Status: Acute Assessment and Plan: patient with metabolic encephalopathy likely related to uremia, septic shock, hypotension, infection - patient was intubated on 11/01/2020 - extubated on 11/07 - nasal cannula, IS, (3) Acute renal failure superimposed on stage 3 chronic kidney disease: Qualifiers: Acute renal failure type: unspecified Qualified Code(s): N17.9 - Acute kidney failure, unspecified; N18.3 - Chronic kidney disease, stage 3 (moderate) Code(s): N17.9 - Acute kidney failure, unspecified; N18.3 - Chronic kidney disease, stage 3 (moderate) Status: Acute Assessment and Plan: acute on chronic kidney disease likely related to hypotension, septic shock, hypovolemia 2nd diarrhea, medications such as spironolactone, torsemide, losartan, Coreg which he takes at home - patient received adequate fluids - 11/01/2020:renal ultrasound Showed normal kidneys and no hydronephrosis - appreciate Nephrology evaluation recommendation - creatinine and BUN improved - rhabdomyolysis has improved - replace low potassium (4) Atrial fibrillation: Qualifiers: Atrial fibrillation type: unspecified Qualified Code(s): I48.91 - Unspecified atrial fibrillation Code(s): I48.91 - Unspecified atrial fibrillation Status: Acute Assessment and Plan: patient in AFib, rate controlled. On Eliquis at home which was held earlier and patient was started on heparin - resume Eliquis today - continue digoxin - digoxin level 0.7. recheck tomorrow a.m. (5) Colitis: Code(s): K52.9 - Noninfective gastroenteritis and colitis, unspecified Status: Acute Assessment and Plan: C diff colitis - NG / OG tube to low intermittent suction - GI, ID and surgery following the patient. Patient's brother declined surgical option continue p.o. vancomycin, fidaxomicin, IV metronidazole - patient has a history of C diff colitis x3 in the past -10/31: stool for C diff is positive - stool culture negative to date (6) Morbid obesity: Code(s): E66.01 - Morbid (severe) obesity due to excess calories Status: Acute Assessment and Plan: chronic morbid obesity (7) Diabetes mellitus with hyperglycemia: Qualifiers: Diabetes mellitus termite treater helper insulin use: with termite treater helper use Diabetes mellitus type: type 2 Qualified Code(s): E11.65 - Type 2 diabetes mellitus with hyperglycemia; Z79.4 - middle or intermediate school principal (current) use of insulin Code(s): E11.65 - Type 2 diabetes mellitus with hyperglycemia Status: Acute Assessment and Plan: continue insulin infusion and Lantus start diabetic diet increase Lantus further (8) Amputation stump necrosis: Code(s): T87.50 - Necrosis of amputation stump, unspecified extremity Status: Acute Assessment and Plan: patient's right amputation stump appears to be swollen and red. there is area of bruise. This appears to be secondary to pressure from use of pro
[2020-11-08] MEDS: INSULIN GLARGINE (*BKC) 100 UNITS/ML 80 UNITS SUB-Q ×2 (09:02→20:07)
[2020-11-08] MEDS: PANTOPRAZOLE SODIUM IV 40 MG VIAL IV PUSH (09:04)
[2020-11-08] MEDS: POTASSIUM CHLORIDE 20 MEQ TABLET.ER 40 MEQ PO ×2 (09:05→14:46)
[2020-11-08] MEDS: DIGOXIN INJ 250 MCG/ML 2 ML AMP (*BKC) IV PUSH (09:07)
[2020-11-08] MEDS: FIDAXOMICIN 200 MG TABLET XX ×2 (11:33→20:01)
--- NOTE | 2020-11-08 14:55 | WPDNEURCNPN ---
Assessment and Plan Additional Plan considering the change in the neurological status, he will definitely benefit from the radiological investigation of cervical spine which cannot be done at this institution and the blanket cutting machine operator here is trying to transfer him to other place where the radiological investigation can be done Consult date: 11/08/20 Time Seen: 02:00 HPI: Lester Nguyễn is a 60 year old male has been admitted to the hospital for the complaints of diarrhea in addition to the ongoing history of 1. Insulin dependent diabetes mellitus 2. Atrial fibrillation 3. Congestive heart failure 4. Coronary artery disease 5. Peripheral vascular disease 6. Status post bilateral lower extremity amputation 7. Obstructive sleep apnea with noncompliance with CPAP. Neuro consultation has been obtained because patient has been noted early having difficulties in moving the upper and lower extremities raising the possibility of the cervical cord involvement, patient has had the CT scan of the head at the time of admission which was negative,x-rays of the cervical spine revealed no obvious fracture dislocation and again study was limited PMFSH Past Medical History Medical History Acute renal failure superimposed on stage 3 chronic kidney disease The patient had temporary dialysis x3 at 1 time Acute worsening of stage 3 chronic kidney disease Atrial fibrillation On chronic anticoagulation with Eliquis C. difficile colitis Chronic kidney disease, stage 3 Diabetes mellitus type 2 in obese Diabetic nephropathy Hands Diastolic dysfunction Last echocardiogram March 2018 demonstrated normal EF of 65-70 with moderate LVH and severe left atrial enlargement GI bleed HTN (hypertension), malignant Hyperlipidemia Metabolic acidosis Morbid obesity Obstructive sleep apnea treated with BiPAP patient is noncompliant with his BiPAP Peripheral vascular disease Surgical History Surgical History History of appendectomy History of bilateral carpal tunnel release History of left above knee amputation History of right below knee amputation History of tonsillectomy and adenoidectomy Family History Family History Sibling Lung cancer Sister Hypertension Brain cancer Father Diabetes mellitus Coronary artery disease Hypertension Mother Acute myocardial infarction Other Family history of arthritis Social History Social History Social History: The patient lives with the brother who is an over the road truck loader and unloader who is rarely home. the patient is disabled. Primary care physician: Dr. Beltran Reyes Code status: Full code Smoking status: Never smoker Alcohol intake: never Drinks per week: 1 Alcohol use details: The patient only uses minimal alcohol on occasion. Substance use: never Additional living arrangements comments: He owns his own house but his brother lives with him and helps him when needed. 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 He is on disability due to his peripheral vascular disease and bilateral lower extremity amputations. Gender identity (if verbalized by the patient): Male Spiritual care concerns: No Agree to blood products: Yes Meds Home Medications and Allergies Home Medications Medication Instructions Recorded Confirmed Type apixaban 5 mg tablet 5 mg PO BID 05/14/19 10/31/20 History carvedilol phosphate 80 mg 40 mg PO DAILY 05/14/19 10/31/20 History capsule,[id number] multiphase digoxin 250 mcg (0.25 mg) tablet 125 mcg PO DAILY 05/14/19 10/31/20 History insulin regular hum U-500 conc See Rx Instructions .ROUTE .COMPLEX 05/14/19 10/31/20 History Livalo 4 mg PO DAILY 08/12/19 10/31/20 History phong
--- NOTE | 2020-11-08 14:58 | PM.EVENT ---
Event Note Event Note Event Note: The C-collar we have does not fit patient. I called ER and did not have any bigger size. spoke to ortho and they recommended calling [facility]. Called after are number of [facility] and they will bring the largest size color they have. Requested patient to not move his neck until then. request nurse to placed rolled towels on each side of his neck until. I spoke to [facility] and they would not accept the patient because they do not have a ICU bed. I called [facility] and through nurse provided patient's measurements and they told me that patient would not fit their MRI hence they will not accept the patient.. I called [facility] and spoke to parts identification technician at [facility] and he recommended the patient be admitted to step-down unit at [facility]. Spoke to hospitalist At [facility] Dr. Lewis and he refused to accept the patient stating that the neurosurgery at [facility] does not have capability of managing this patient and recommended transfer to tertiary facility like [facility] or [facility]. Per transfer line [facility] MRI also does not support patient's weight and size. Discussed with Dr. Jama who also recommends transfer to facility patient could be imaged and neurosurgical opinion sought if needed Spent 90 minutes coordinating care, calling different facilities and discussing with physicians
--- NOTE | 2020-11-08 15:13 | PM.IMPN ---
Progress Note: A&P Assessment and Plan (1) Septic shock: Code(s): A41.9 - Sepsis, unspecified organism; R65.21 - Severe sepsis with septic shock Status: Acute Assessment and Plan: septic shock could be related to C diff colitis. - off all pressors at this time. IV fluids have been discontinued. He was on 4 pressors at some point. - appreciate GI and infectious disease evaluation and recommendations. Continue Zosyn, p.o. vancomycin and fidaxomicin. He is on Zosyn to treat any secondary colonic infection secondary to C diff As per ID recommendations. - 10/31 stool was positive C diff -10/31: blood cultures were negative x2 -10/31: stool cultures pending -11/01: repeat blood cultures, urine and sputum cultures pending. sputum cultures showing yeast which is likely a colonization - resolved (2) Acute respiratory failure: Qualifiers: Respiratory failure complication: hypoxia Qualified Code(s): J96.01 - Acute respiratory failure with hypoxia Code(s): J96.00 - Acute respiratory failure, unspecified whether with hypoxia or hypercapnia Status: Acute Assessment and Plan: patient with metabolic encephalopathy likely related to uremia, septic shock, hypotension, infection - patient was intubated on 11/01/2020 - extubated on 11/07 - nasal cannula, IS (3) Acute renal failure superimposed on stage 3 chronic kidney disease: Qualifiers: Acute renal failure type: unspecified Qualified Code(s): N17.9 - Acute kidney failure, unspecified; N18.3 - Chronic kidney disease, stage 3 (moderate) Code(s): N17.9 - Acute kidney failure, unspecified; N18.3 - Chronic kidney disease, stage 3 (moderate) Status: Acute Assessment and Plan: acute on chronic kidney disease likely related to hypotension, septic shock, hypovolemia 2nd diarrhea creatinine 2.4 on admission but increased to 4.6 related to ATN from sepsis and hypotension. Creatinine was 1.0 in August 2020. Now creatinine has trended down to normal range. His home medication like spironolactone, torsemide, losartan, Coreg are on hold for now. - patient received adequate fluids - 11/01/2020:renal ultrasound Showed normal kidneys and no hydronephrosis - appreciate Nephrology evaluation recommendation - creatinine and BUN improved - rhabdomyolysis has improved (4) Atrial fibrillation: Qualifiers: Atrial fibrillation type: unspecified Qualified Code(s): I48.91 - Unspecified atrial fibrillation Code(s): I48.91 - Unspecified atrial fibrillation Status: Acute Assessment and Plan: patient in AFib, rate controlled. On Eliquis at home which was held earlier And he was on heparin drip. - Now Eliquis has been resumed. Continue digoxin. (5) Colitis: Code(s): K52.9 - Noninfective gastroenteritis and colitis, unspecified Status: Acute Assessment and Plan: C diff colitis - GI, ID and surgery following the patient. Patient's brother declined surgical option continue p.o. vancomycin, fidaxomicin, IV metronidazole - patient has a history of C diff colitis x3 in the past -10/31: stool for C diff is positive - stool culture negative to date (6) Morbid obesity: Code(s): E66.01 - Morbid (severe) obesity due to excess calories Status: Acute Assessment and Plan: Continue to monitor (7) Diabetes mellitus with hyperglycemia: Qualifiers: Diabetes mellitus type: type 2 Diabetes mellitus half-way insulin use: with half-way use Qualified Code(s): E11.65 - Type 2 diabetes mellitus with hyperglycemia; Z79.4 - residential (current) use of insulin Code(s): E11.65 - Type 2 diabetes mellitus with hyperglycemia Status: Acute Assessment and Plan: continue insulin infusion and Lantus. try to wean insulins infusion if tolerated. start diabetic diet Adjust Lantus dose further to try to wean insulin infusion. (8) Am
[2020-11-08] MEDS: APIXABAN 5 MG TABLET PO (17:40)
[2020-11-08 18:03] LABS: Glucose Point of Care 107 mg/dl (65-105)
[2020-11-08 18:03] LABS: Glucose Point of Care 113 mg/dl (65-105)
[2020-11-08 18:03] LABS: Glucose Point of Care 119 mg/dl (65-105)
[2020-11-08 18:04] LABS: Glucose Point of Care 90 mg/dl (65-105)
[2020-11-08 18:04] LABS: Glucose Point of Care 115 mg/dl (65-105)
[2020-11-08 18:04] LABS: Glucose Point of Care 119 mg/dl (65-105)
[2020-11-08 18:04] LABS: Glucose Point of Care 102 mg/dl (65-105)
[2020-11-08 18:04] LABS: Glucose Point of Care 81 mg/dl (65-105)
[2020-11-09] VITALS (24 sets, daily range): BP systolic 129–201; BP diastolic 38–80; PULSE 59–106; RESP 16–47; TEMP 36.8–38.3; O2SAT 90–96
[2020-11-09] MEDS: carvediloL 12.5 MG TABLET PO ×2 (00:26→08:09)
[2020-11-09] MEDS: LOSARTAN POTASSIUM 50 MG TABLET PO ×2 (00:26→08:10)
[2020-11-09] MEDS: LABETALOL HCL INJ 100 MG/20 ML VIAL 20 MG IV PUSH ×3 (01:54→21:54)
[2020-11-09] MEDS: LEVALBUTEROL NEB 1.25 MG/3 ML 0.63 MG INHALATION ×3 (03:08→20:13)
[2020-11-09] MEDS: IPRATROPIUM BR 0.02% INH SOLN 0.5 MG/2.5 ML VIAL INHALATION ×3 (03:08→20:14)
[2020-11-09] MEDS: metroNIDAZOLE 500 MG/ISO 100ML 500 MG/100 ML BAG 100 MG IVPB ×4 (04:30→21:00)
[2020-11-09] MEDS: CENTRAL LINE FLUSH 10 ML IV PUSH ×2 (05:31→21:17)
[2020-11-09] MEDS: INSULIN ASPART (*BKC) 100 UNITS/ML SUB-Q ×2 (05:38→07:58)
[2020-11-09] MEDS: hydrALAZINE HCL 20 MG/ML VIAL IV PUSH ×2 (05:42→23:29)
[2020-11-09 05:55] LABS: Glucose Point of Care 203 mg/dl (65-105)
[2020-11-09 06:15] LABS: Alanine Aminotransferase 37 U/L (4-50); Albumin Level 3.2 g/dL (3.5-5.1); Alkaline Phosphatase 42 U/L (38-126); Anion Gap 8 mmol/L (8-16); Aspartate Amino Transferase 55 U/L (17-59); Bilirubin,Total 1.1 mg/dL (0.2-1.3); Blood Urea Nitrogen 34 mg/dL (9-20); Calcium 8.1 mg/dL (8.4-10.2); Carbon Dioxide 27 mmol/L (22-30); Chloride 101 mmol/L (98-107); Estimated CRCL calculation 118 ml/min; Estimated Glomerular Filt Rate > 60; Glucose 202 mg/dL (65-110); Hematocrit 34.4 % (42.0-52.0); Hemoglobin 10.9 g/dL (14.0-18.0); Magnesium 2.3 mg/dL (1.6-2.3); Mean Corpuscular HGB Conc 31.7 g/dl (32-36); Mean Corpuscular Hemoglobin 27.2 pg (26-34); Mean Corpuscular Volume 85.8 fl (80-100); Mean Platelet Volume 9.8 fl (7.4-10.4); Platelet Count Result 300 k/mm3 (150-375); Potassium 3.4 mmol/L (3.4-5.0); Red Blood Count 4.01 M/mm3 (4.6-6.20); Red Cell Distribution Width 15.5 % (11.5-14.5); Sodium 136 mmol/L (137-145); White Blood Count 22.3 K/mm3 (4.5-10.0)
[2020-11-09 06:51] LABS: Digoxin 0.8 ng/mL (0.8-2.0)
[2020-11-09 06:54] LABS: Glucose Point of Care 184 mg/dl (65-105)
[2020-11-09 06:54] LABS: Glucose Point of Care 182 mg/dl (65-105)
--- NOTE | 2020-11-09 07:06 | PC.NURSE ---
11/08/20: 2200 patient refuses to wear cpap overnight when asked on multiple occasions
[2020-11-09] MEDS: INSULIN GLARGINE (*BKC) 100 UNITS/ML 80 UNITS SUB-Q ×2 (08:00→21:15)
[2020-11-09] MEDS: DIGOXIN INJ 250 MCG/ML 2 ML AMP (*BKC) IV PUSH (08:09)
[2020-11-09] MEDS: PANTOPRAZOLE SODIUM IV 40 MG VIAL IV PUSH (08:10)
[2020-11-09] MEDS: FIDAXOMICIN 200 MG TABLET XX ×2 (08:10→20:59)
--- NOTE | 2020-11-09 09:12 | WPDINTPN ---
Progress Note: A&P Assessment and Plan (1) Septic shock: Code(s): A41.9 - Sepsis, unspecified organism; R65.21 - Severe sepsis with septic shock Status: Acute Assessment and Plan: septic shock could be related to C diff colitis. - off all pressors at this time. IV fluids have been discontinued - appreciate GI and infectious disease evaluation and recommendations. Continue Zosyn, p.o. vancomycin and fidaxomicin - 10/31 stool was positive C diff -10/31: blood cultures were negative x2 -10/31: stool cultures pending -11/01: repeat blood cultures, urine and sputum cultures pending. sputum cultures showing yeast which is likely a colonization - resolved (2) Acute respiratory failure: Qualifiers: Respiratory failure complication: hypoxia Qualified Code(s): J96.01 - Acute respiratory failure with hypoxia Code(s): J96.00 - Acute respiratory failure, unspecified whether with hypoxia or hypercapnia Status: Acute Assessment and Plan: patient with metabolic encephalopathy likely related to uremia, septic shock, hypotension, infection - patient was intubated on 11/01/2020 - extubated on 11/07 - nasal cannula, IS, (3) Acute renal failure superimposed on stage 3 chronic kidney disease: Qualifiers: Acute renal failure type: unspecified Qualified Code(s): N17.9 - Acute kidney failure, unspecified; N18.3 - Chronic kidney disease, stage 3 (moderate) Code(s): N17.9 - Acute kidney failure, unspecified; N18.3 - Chronic kidney disease, stage 3 (moderate) Status: Acute Assessment and Plan: acute on chronic kidney disease likely related to hypotension, septic shock, hypovolemia 2nd diarrhea, medications such as spironolactone, torsemide, losartan, Coreg which he takes at home - patient received adequate fluids - 11/01/2020:renal ultrasound Showed normal kidneys and no hydronephrosis - appreciate Nephrology evaluation recommendation - creatinine and BUN improved - rhabdomyolysis has improved - replace low potassium (4) Atrial fibrillation: Qualifiers: Atrial fibrillation type: unspecified Qualified Code(s): I48.91 - Unspecified atrial fibrillation Code(s): I48.91 - Unspecified atrial fibrillation Status: Acute Assessment and Plan: patient in AFib, rate controlled. On Eliquis at home which was held earlier and patient was started on heparin - resume Eliquis today - continue digoxin - digoxin level 0.8 (5) Colitis: Code(s): K52.9 - Noninfective gastroenteritis and colitis, unspecified Status: Acute Assessment and Plan: C diff colitis - NG / OG tube to low intermittent suction - GI, ID and surgery following the patient. Patient's brother declined surgical option continue p.o. 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 there is area of bruise. This appears to be secondary to pressure from use of prosthesis US Soft Tiss
[2020-11-09] MEDS: APIXABAN 5 MG TABLET PO ×2 (11:52→20:59)
--- NOTE | 2020-11-09 12:34 | PC.NURSE ---
Patient to [facility] @1220 for MRI travel via EMS.
[2020-11-09 15:02] LABS: Glucose Point of Care 165 mg/dl (65-105)
[2020-11-09 15:25] LABS: Glucose Point of Care 220 mg/dl (65-105)
[2020-11-09] MEDS: carvediloL 25 MG TABLET PO (17:05)
--- NOTE | 2020-11-09 17:11 | WPDINFPN2 ---
Progress Note: A&P Additional Plan 1. Sepsis secondary to Clostridium difficile colitis. Stool for C diff toxin was positive. CT scan of the abdomen and pelvis showed inflammatory changes consistent with colitis extending from the transverse colon to the sigmoid colon. The patient also showing systemic manifestation of the colitis including septic shock associated with acute renal failure. patient is currently on Dificid p.o. and Flagyl IV day 8. Vancomycin p.o. day 7. patient is currently extubated and off pressors. No diarrhea at this time. 2. Septic shock most likely secondary to Clostridium difficile colitis. Secondary bacterial infection is always a concern with an inflamed colon. Patient is also on Zosyn for possible secondary infection. Blood cultures are negative. Right stump site signs of ecchymoses and early skin breakdown. Continue Zosyn day 8. Continued due to rebound leukocytosis and workup in process. 3. Acute renal failure most likely secondary to septic shock. Creatinine has improved to 1.4. Avoid nephrotoxic agents. 4. Respiratory failure currently extubated. 5. Rebound leukocytosis. Will request blood cultures x2 set. Chest x-ray if not done. Indwelling catheter in place with good flow. The right stump site ulceration is clean no necrosis. Due to elevated white count will continue Zosyn for now 6. Symmetrical upper and lower extremity weakness workup in progress. Patient was sent to outside facility for MRI of spine [ cervical and thoracic] . Subjective Date/time seen: 11/09/20 17:11 Exam Const: General: cooperative HENMT: Head: normal to inspection Mouth: Yes Normal oral and palatal mucosa present Resp: Effort & Inspection: normal respiratory effort Auscultation: clear to auscultation bilaterally Cardio: Heart sounds: S1 normal heart sound present and S2 normal heart sound present GI: Inspection: normal to inspection Auscultation: normal bowel sounds Skin: Other: Right stump site ulceration wound is clean. No necrosis. Neuro: General: oriented to person Other: Upper and lower extremity weakness. Psych: Appearance: grossly normal Objective Data Vital Signs Vital Signs: Vital Signs - 24 hr 11/08/20 18:00 11/08/20 20:00 11/08/20 20:43 Temperature 37.3 C 37.8 C H Pulse Rate 90 117 H 97 Respiratory Rate 18 41 H 32 H Blood Pressure 197/77 H 196/70 H Pulse Oximetry 92 93 11/08/20 20:50 11/08/20 22:00 11/09/20 00:00 Temperature 37.8 C H 38.0 C H Pulse Rate 100 96 106 H Respiratory Rate 33 H 33 H 35 H Blood Pressure 179/50 H 181/54 H Pulse Oximetry 92 93 11/09/20 00:26 11/09/20 02:00 11/09/20 03:00 Temperature 38.1 C H 38.3 C H Pulse Rate 98 69 91 Respiratory Rate 38 H 36 H Blood Pressure 165/72 H 129/38 L Pulse Oximetry 93 94 11/09/20 03:08 11/09/20 03:22 11/09/20 04:00 Temperature Pulse Rate 88 94 90 Respiratory Rate 37 H 32 H Blood Pressure Pulse Oximetry 11/09/20 06:00 11/09/20 08:00 11/09/20 08:09 Temperature 38.1 C H 37.9 C H Pulse Rate 90 94 97 Respiratory Rate 34 H 33 H Blood Pressure 162/62 H 172/58 H Pulse Oximetry 93 94 11/09/20 08:20 11/09/20 10:00 11/09/20 12:00 Temperature 38.1 C H 38.1 C H Pulse Rate 92 93 76 Respiratory Rate 25 H 16 22 H Blood Pressure 156/66 H 162/78 H Pulse Oximetry 93 92 11/09/20 16:54 11/09/20 17:05 Temperature 37.0 C Pulse Rate 91 91 Respiratory Rate 31 H Blood Pressure 201/80 H Pulse Oximetry 90 Intake/Output Intake/Output: Intake & Output 11/06/20 11/07/20 11/08/20 11/09/20 23:59 23:59 23:59 23:59 Intake Total 4021.8 3195.9667 1198.9 300 Output Total 1900 3050 2100 1200 Balance 2121.8 145.9667 -901.1 -900 Meds/Results Medications: Active Medications Generic Name Dose Route Start Last Admin Trade Name Freq PRN Reason Stop Dose Admin Acetaminophen 650 mg 11/04/20 07:36 11/04/20 13:26 Acetaminophen 325 Mg Tablet PO 650 mg Q4H PRN
[2020-11-09 17:20] LABS: Glucose Point of Care 149 mg/dl (65-105)
--- NOTE | 2020-11-09 23:40 | PC.NURSE ---
11/09/20: 2300- Patient refusing to wear CPAP on multiple attempts
[2020-11-10] VITALS (23 sets, daily range): BP systolic 141–202; BP diastolic 47–90; PULSE 57–85; RESP 16–43; TEMP 36.6–38.7; O2SAT 93–98
--- NOTE | 2020-11-10 00:23 | PCRCNOTE ---
Pt Respiration has been elevated 28-34 bpm, non-labored since 1999, 11/09/20. RT observed pt at 2300, pt breathing has become labored and RR has increased [address] Kyung Bae. RT spoke with MD via telephone. RT suggested BIPAP for pt tachypenic diaphragmatic breathing. No respiratory intervention made at this time. Pt on 2 liter NC, RR-47 bpm labored, Sp02 96%. RT will continue to monitor pt and notify RN if pt condition progress.
[2020-11-10] MEDS: FUROSEMIDE INJ 40 MG/4 ML VIAL IV PUSH (00:32)
[2020-11-10] MEDS: amLODIPine BESYLATE 5 MG TABLET 10 MG PO ×2 (00:36→17:56)
[2020-11-10] MEDS: ACETAMINOPHEN 325 MG TABLET 650 MG PO ×2 (00:41→05:54)
[2020-11-10] MEDS: LABETALOL HCL INJ 100 MG/20 ML VIAL 20 MG IV PUSH (02:17)
[2020-11-10] MEDS: metroNIDAZOLE 500 MG/ISO 100ML 500 MG/100 ML BAG 100 MG IVPB ×4 (02:18→21:10)
[2020-11-10] MEDS: IPRATROPIUM BR 0.02% INH SOLN 0.5 MG/2.5 ML VIAL INHALATION ×4 (02:56→20:52)
[2020-11-10] MEDS: LEVALBUTEROL NEB 1.25 MG/3 ML 0.63 MG INHALATION ×4 (02:57→20:52)
[2020-11-10 03:16] LABS: Add Urine Microscopic? YES; Appearance Urine Cloudy (Clear); Bacteria Urine Trace /hpf; Bilirubin Urine Negative (Negative); Blood Urine 3+ (Negative); Color Urine Yellow (Yellow); Glucose Urine UA Negative (Negative); Ketones Urine Negative (Negative); Leukocyte Esterase Ur Trace LEU/UL (NEGATIVE); Mucus Urine Rare /lpf; Nitrate Urine Negative (Negative); Protein Urine 2+ mg/dL (Negative); RBC Urine >75 /hpf (0-2); Specific Grav Ur 1.014 (1.001-1.035); Squamous Epithelial Cell Urine Rare /hpf (Few); Uric Acid Crystals Urine Present /hpf; Urobilinogen Urine Negative mg/dL (<2.0)
[2020-11-10 04:28] LABS: Glucose Point of Care 135 mg/dl (65-105)
[2020-11-10] MEDS: hydrALAZINE HCL 20 MG/ML VIAL IV PUSH (05:30)
[2020-11-10] MEDS: CENTRAL LINE FLUSH 10 ML IV PUSH ×3 (05:55→21:17)
[2020-11-10 06:11] LABS: Glucose Point of Care 132 mg/dl (65-105)
[2020-11-10 07:00] LABS: Hematocrit 32.1 % (42.0-52.0); Hemoglobin 10.1 g/dL (14.0-18.0); Mean Corpuscular HGB Conc 31.5 g/dl (32-36); Mean Corpuscular Hemoglobin 26.8 pg (26-34); Mean Corpuscular Volume 85.1 fl (80-100); Mean Platelet Volume 9.8 fl (7.4-10.4); Platelet Count Result 306 k/mm3 (150-375); Red Blood Count 3.77 M/mm3 (4.6-6.20); Red Cell Distribution Width 16.1 % (11.5-14.5); White Blood Count 16.2 K/mm3 (4.5-10.0)
[2020-11-10 07:06] LABS: Alanine Aminotransferase 37 U/L (4-50); Alkaline Phosphatase 40 U/L (38-126); Anion Gap 4 mmol/L (8-16); Aspartate Amino Transferase 54 U/L (17-59); Blood Urea Nitrogen 31 mg/dL (9-20); Calcium 7.9 mg/dL (8.4-10.2); Carbon Dioxide 30 mmol/L (22-30); Chloride 106 mmol/L (98-107); Estimated CRCL calculation 117 ml/min; Estimated Glomerular Filt Rate > 60; Glucose 127 mg/dL (65-110); Magnesium 2.4 mg/dL (1.6-2.3); Potassium 3.3 mmol/L (3.4-5.0); Sodium 140 mmol/L (137-145)
[2020-11-10 08:51] LABS: Glucose Point of Care 136 mg/dl (65-105)
[2020-11-10] MEDS: POTASSIUM CHLORIDE 20 MEQ TABLET 40 MEQ PO (09:08)
[2020-11-10] MEDS: carvediloL 25 MG TABLET PO ×2 (09:09→17:57)
[2020-11-10] MEDS: APIXABAN 5 MG TABLET PO ×2 (09:10→21:09)
[2020-11-10] MEDS: DIGOXIN 250 MCG TABLET PO (09:10)
[2020-11-10] MEDS: INSULIN GLARGINE (*BKC) 100 UNITS/ML 80 UNITS SUB-Q ×2 (09:11→21:17)
[2020-11-10] MEDS: LOSARTAN POTASSIUM 100 MG TABLET PO (09:11)
[2020-11-10] MEDS: FIDAXOMICIN 200 MG TABLET XX (09:11)
[2020-11-10] MEDS: PANTOPRAZOLE SODIUM IV 40 MG VIAL IV PUSH (09:13)
--- NOTE | 2020-11-10 10:51 | WPDINTPN ---
Progress Note: A&P Assessment and Plan (1) Septic shock: Code(s): A41.9 - Sepsis, unspecified organism; R65.21 - Severe sepsis with septic shock Status: Acute Assessment and Plan: septic shock could be related to C diff colitis. - off all pressors at this time. IV fluids have been discontinued - appreciate GI and infectious disease evaluation and recommendations. Continue Zosyn, p.o. vancomycin and fidaxomicin - resolved (2) Acute respiratory failure: Qualifiers: Respiratory failure complication: hypoxia Qualified Code(s): J96.01 - Acute respiratory failure with hypoxia Code(s): J96.00 - Acute respiratory failure, unspecified whether with hypoxia or hypercapnia Status: Acute Assessment and Plan: patient with metabolic encephalopathy likely related to uremia, septic shock, hypotension, infection - patient was intubated on 11/01/2020 - extubated on 11/07 - he does rapid shallow breathing likely from discomfort and C-collar. he denies any shortness of breath and is saturating adequately on 2 L nasal cannula - he also has sleep apnea but does not wear his CPAP at home and refused here in the hospital too - I have discussed with RT and will use EzPAP every 6 hours to minimize atelectasis - Lasix was given IV (3) Acute renal failure superimposed on stage 3 chronic kidney disease: Qualifiers: Acute renal failure type: unspecified Qualified Code(s): N17.9 - Acute kidney failure, unspecified; N18.3 - Chronic kidney disease, stage 3 (moderate) Code(s): N17.9 - Acute kidney failure, unspecified; N18.3 - Chronic kidney disease, stage 3 (moderate) Status: Acute Assessment and Plan: acute on chronic kidney disease likely related to hypotension, septic shock, hypovolemia 2nd diarrhea, medications such as spironolactone, torsemide, losartan, Coreg which he takes at home - patient received adequate fluids - 11/01/2020:renal ultrasound Showed normal kidneys and no hydronephrosis - appreciate Nephrology evaluation recommendation - creatinine and BUN has normalized - replace low potassium (4) Atrial fibrillation: Qualifiers: Atrial fibrillation type: unspecified Qualified Code(s): I48.91 - Unspecified atrial fibrillation Code(s): I48.91 - Unspecified atrial fibrillation Status: Acute Assessment and Plan: patient in AFib, rate controlled. On Eliquis at home which was held earlier and patient was started on heparin - continue Eliquis now - continue digoxin and Coreg - digoxin level 0.8 (5) Colitis: Code(s): K52.9 - Noninfective gastroenteritis and colitis, unspecified Status: Acute Assessment and Plan: C diff colitis - NG / OG tube to low intermittent suction - GI, ID and surgery following the patient. Patient's brother declined surgical option continue p.o. 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 there is
--- NOTE | 2020-11-10 11:19 | PCDIET ---
Nutrition Follow-Up Complete: Nutrition Diagnosis: Altered GI function related to c. Diff colitis as evidenced by diarrhea and recommended bowel rest. Nutrition Goal: Patient to meet estimated nutritional needs. Goal not met. Patient eating minimally on diabetic diet. Recommend adding Glucerna Shake (220kcal, 10g protein) TID with meals. Last recorded weight is 213.5 kg which is down from last review. -I/O. Bowel Motility: BM x 1 documented today, 11/10/20. BM x 1 on 11/09/20. Labs Reviewed: WBC (16.2), RBC (3.77), Hgb (10.1), Hct (32.1), Glu (127), K (3.3), Alb (3.0), Isidro Ca (8.7) Meds Noted: Norvasc, Coreg, Digoxin, Dificid, Hydralazine, Lantus, Atrovent, Labetalol, Xopenex, Cozaar, Flagyl, Protonix, Zosyn, Vancomycin, Lasix, KCl Additional Notes: Buttocks with unstageable ulcers; right distal leg ulcer; macerated scrotum. Will focus on optimizing protein and calorie intake. Stools appear to have slowed down. Would consider resuming Banatrol if stooling becomes more frequent. Nutrition Monitoring and Evaluation: Follow up every 3 days.
[2020-11-10 11:53] LABS: Glucose Point of Care 165 mg/dl (65-105)
--- NOTE | 2020-11-10 13:01 | PC.NURSE ---
pt returnerd from mri , 11/09/20 at 1610 via ambulance and stretcher
--- NOTE | 2020-11-10 13:43 | P.PNCROSS_ITS ---
Event Note Event Note Event Note: MRIs cervical spine report was obtained from [facility]. Patient refused MRI of thoracic spine as he would not lay flat any longer. his MRI C-spine also had lot of motion artifact but appears that he has cervical spondylosis and mild spinal stenosis at C5-C6 and moderate spinal stenosis at C6-C7 secondary to bulging disc. Will wait for further recommendations from Neurology
--- NOTE | 2020-11-10 14:34 | WPDGIPROGNO ---
Progress Note: A&P Assessment and Plan (1) C. difficile colitis: Code(s): A04.72 - Enterocolitis due to Clostridium difficile, not specified as recurrent Status: Acute Assessment and Plan: improved with medical management (dificid, flagy and vancomycin per ID recommendation) and no more diarrhea- patient came in with septic shock and severe colitis also zosyn for possible secondary infection no abdominal pain and tolerating diet (2) Septic shock: Code(s): A41.9 - Sepsis, unspecified organism; R65.21 - Severe sepsis with septic shock Status: Acute Assessment and Plan: resolved (3) Amputation stump necrosis: Code(s): T87.50 - Necrosis of amputation stump, unspecified extremity Status: Acute Assessment and Plan: medical management (4) Bilateral arm weakness: Code(s): R29.898 - Other symptoms and signs involving the musculoskeletal system Status: Acute Assessment and Plan: work up in progress with neurology (5) Leukocytosis: Qualifiers: Leukocytosis type: unspecified Qualified Code(s): D72.829 - Elevated white blood cell count, unspecified Code(s): D72.829 - Elevated white blood cell count, unspecified Status: Acute Assessment and Plan: continue to monitor (6) Diabetes mellitus type 2 in obese: Code(s): E11.69 - Type 2 diabetes mellitus with other specified complication; E66.9 - Obesity, unspecified Status: Acute Subjective Date/time seen: 11/10/20 14:34 Interval history: frequency bowel movement slowed down- does not longer has rectal bag- no abdominal pain and he has been tolerating diet. Noted events from weekend (difficulty moving arms and primary ordered MRI at another facility to assess if neurological source). He has been off pressors since extubation. Review of Systems Review of Systems: All systems reviewed & are unremarkable except as noted in HPI and below Exam Const: General: no acute distress and ill appearing chronically Nutritional Appearance: obese and edematous HENMT: General nose exam: Normal nares present Eyes: Sclera: sclerae normal Neck: Other: C-collar in place Resp: Auscultation: diminished lung sounds GI: GI Palp: Yes Soft to palpation and No Tenderness to palpation present (GI) Auscultation: normal bowel sounds Urinary Catheter: Urinary Catheter: patent and draining and urine cloudy Skin: Other: lesion in Rt stump Neuro: Speech: normal speech Other: difficulty moving arms Extrem: Other: b/l amputation b/o edema arms Psych: Affect: No Hostile affect present Objective Data Vital Signs Vital Signs: Vital Signs - 24 hr 11/09/20 16:54 11/09/20 17:05 11/09/20 17:16 Temperature 98.6 F Pulse Rate 91 91 Respiratory Rate 31 H Blood Pressure 201/80 H Pulse Oximetry 90 94 11/09/20 18:00 11/09/20 18:08 11/09/20 20:00 Temperature 98.3 F Pulse Rate 80 88 70 Respiratory Rate 33 H 41 H Blood Pressure 176/72 H 158/74 H Pulse Oximetry 95 96 11/09/20 20:18 11/09/20 20:19 11/09/20 22:00 Temperature Pulse Rate 74 74 59 L Respiratory Rate 32 H 34 H 27 H Blood Pressure 187/62 H Pulse Oximetry 96 96 11/09/20 23:27 11/09/20 23:55 11/10/20 00:00 Temperature Pulse Rate 83 Respiratory Rate 47 H 40 H Blood Pressure 202/90 H Pulse Oximetry 96 96 11/10/20 00:40 11/10/20 00:41 11/10/20 01:41 Temperature 101.3 F H 101.3 F H 100.9 F H Pulse Rate Respiratory Rate Blood Pressure Pulse Oximetry 11/10/20 02:00 11/10/20 02:49 11/10/20 04:00 Temperature 101 F H Pulse Rate 70 67 69 Respiratory Rate 43 H 42 H 41 H Blood Pressure 180/80 H 181/47 H Pulse Oximetry 96 96 11/10/20 05:54 11/10/20 06:00 11/10/20 08:00 Temperature 101.6 F H 99 F Pulse Rate 74 72 Respiratory Rate 39 H 22 H Blood Pressure 145/56 H 141/71 H Pulse Oximetry 96 96 11/10/20 08:23 11/10/20 08:37 11/10/20 10:00 [place]
[2020-11-10 16:54] LABS: Glucose Point of Care 195 mg/dl (65-105)
[2020-11-10] MEDS: FIDAXOMICIN 200 MG TABLET PO (21:20)
[2020-11-10 21:33] LABS: Glucose Point of Care 164 mg/dl (65-105)
[2020-11-11] VITALS (23 sets, daily range): BP systolic 139–175; BP diastolic 52–82; PULSE 46–62; RESP 18–37; TEMP 35.7–37.9; O2SAT 94–96
[2020-11-11] MEDS: LEVALBUTEROL NEB 1.25 MG/3 ML 0.63 MG INHALATION ×4 (02:48→19:57)
[2020-11-11] MEDS: IPRATROPIUM BR 0.02% INH SOLN 0.5 MG/2.5 ML VIAL INHALATION ×4 (02:48→19:57)
[2020-11-11] MEDS: metroNIDAZOLE 500 MG/ISO 100ML 500 MG/100 ML BAG 100 MG IVPB ×4 (03:15→20:44)
[2020-11-11] MEDS: CENTRAL LINE FLUSH 10 ML IV PUSH ×3 (05:21→21:01)
[2020-11-11 05:36] LABS: Hemoglobin 10.1 g/dL (14.0-18.0); Mean Corpuscular HGB Conc 30.6 g/dl (32-36); Mean Corpuscular Volume 88.2 fl (80-100); Mean Platelet Volume 9.4 fl (7.4-10.4); Platelet Count Result 298 k/mm3 (150-375); Red Blood Count 3.74 M/mm3 (4.6-6.20); Red Cell Distribution Width 16.7 % (11.5-14.5); White Blood Count 15.6 K/mm3 (4.5-10.0)
[2020-11-11 05:45] LABS: Alanine Aminotransferase 30 U/L (4-50); Albumin Level 2.9 g/dL (3.5-5.1); Alkaline Phosphatase 37 U/L (38-126); Anion Gap 9 mmol/L (8-16); Aspartate Amino Transferase 35 U/L (17-59); Bilirubin,Total 0.8 mg/dL (0.2-1.3); Blood Urea Nitrogen 38 mg/dL (9-20); Carbon Dioxide 27 mmol/L (22-30); Chloride 102 mmol/L (98-107); Estimated CRCL calculation 97 ml/min; Estimated Glomerular Filt Rate 57; Glucose 160 mg/dL (65-110); Magnesium 2.4 mg/dL (1.6-2.3); Potassium 3.5 mmol/L (3.4-5.0); Sodium 138 mmol/L (137-145)
[2020-11-11] MEDS: LOSARTAN POTASSIUM 100 MG TABLET PO (08:50)
[2020-11-11] MEDS: DIGOXIN TAB 125 MCG TABLET PO (08:50)
[2020-11-11] MEDS: APIXABAN 5 MG TABLET PO ×2 (08:50→20:44)
[2020-11-11] MEDS: FIDAXOMICIN 200 MG TABLET PO ×2 (08:50→20:43)
[2020-11-11] MEDS: PANTOPRAZOLE SODIUM IV 40 MG VIAL IV PUSH (08:51)
[2020-11-11] MEDS: INSULIN GLARGINE (*BKC) 100 UNITS/ML 80 UNITS SUB-Q ×2 (08:51→21:01)
[2020-11-11 08:57] LABS: Glucose Point of Care 146 mg/dl (65-105)
--- NOTE | 2020-11-11 11:11 | PM.IMPN ---
Progress Note: A&P Assessment and Plan (1) Acute respiratory failure: Qualifiers: Respiratory failure complication: hypoxia Qualified Code(s): J96.01 - Acute respiratory failure with hypoxia Code(s): J96.00 - Acute respiratory failure, unspecified whether with hypoxia or hypercapnia Status: Acute Assessment and Plan: Patient developed respiratory failure requiring intubation 11/01/20. He stabilized and able to wean off pressors then able to be extubated. He is doing well on RA. Appreciate host input. Resolved (2) Septic shock: Code(s): A41.9 - Sepsis, unspecified organism; R65.21 - Severe sepsis with septic shock Status: Acute Assessment and Plan: Patient with severe septic shock requiring up to 4 pressors. [place] related to the CDiff. Able to wean off pressors. BP remaining stable. Resolved (3) Amputation stump necrosis: Code(s): T87.50 - Necrosis of amputation stump, unspecified extremity Status: Acute Assessment and Plan: Wound dry without evidence of cellulitis/abscess. [place] related to HoTN/ischemia then infectious etiology. Continue current wound care. (4) Bilateral arm weakness: Code(s): R29.898 - Other symptoms and signs involving the musculoskeletal system Status: Acute Assessment and Plan: Patient unable to move bilateral UE. MRI C-spine done 11/10 showing cervical spondylosis and mild spinal stenosis at C5-C6 and moderate spinal stenosis at C6-C7 secondary to bulging disc but with motion artifact. Continue C-collar until evaluated by neurology (5) C. difficile colitis: Code(s): A04.72 - Enterocolitis due to Clostridium difficile, not specified as recurrent Status: Acute Assessment and Plan: Patient presents with n/v/d and found to have septic shock. Stool has returned positive for CDiff. KUB 11/04 showing gaseous distention of the colon. WBC trending to normal and stool output better. Continue oral Vanco, oral Fidaxomicin and IV Flagyl. ID following. General surgery also involved in his care but no plans for colectomy especially now that his condition is improving and patient/brother refused. Appreciate GenSurg input. WBC trend as mentioned below. Monitor stool output. (6) Leukocytosis: Qualifiers: Leukocytosis type: unspecified Qualified Code(s): D72.829 - Elevated white blood cell count, unspecified Code(s): D72.829 - Elevated white blood cell count, unspecified Status: Acute Assessment and Plan: WBC 34K on admission and climbed to 38K before trending down to 10K. Related to CDiff colitis. A few days ago, connie developed fevers and WBC climbed to 22K again. UA noted but no UCx drawn. BCx NGTD. Fever better and WBC trending down but no change in abx regiment (remains on Zosyn). Job monitor. (7) RADHA (acute kidney injury): Code(s): N17.9 - Acute kidney failure, unspecified Status: Acute Assessment and Plan: Cr 2.4 on admission but increased to 4.6 related to ATN from sepsis and HoTN. Cr 1.0 in August 2020. Spironolactone and torsemide on hold. Cr trending down now to 1.1-1.3 range now possibly new baseline. Follow. (8) Diabetes mellitus with hyperglycemia: Qualifiers: Diabetes mellitus type: type 2 Diabetes mellitus senior care insulin use: with senior care use Qualified Code(s): E11.65 - Type 2 diabetes mellitus with hyperglycemia; Z79.4 - rn long term care (current) use of insulin Code(s): E11.65 - Type 2 diabetes mellitus with hyperglycemia Status: Acute Assessment and Plan: A1c 8.6. Glucose reviewed on 11/11. Glucose reasonably well controlled. Continue Lantus. Continue AccuCheks covering with sliding scale. Hypoglycemia protocol available as needed. Follow closely. (9) Atrial fibrillation: Qualifiers: Atrial fibrillation type: unspecified chronic Qualified Code(s): I48.20 -
[2020-11-11 12:14] LABS: Glucose Point of Care 135 mg/dl (65-105)
--- NOTE | 2020-11-11 14:38 | WPDINFPN2 ---
Progress Note: A&P Additional Plan 1. Clostridium difficile colitis. Stool for C diff toxin was positive. CT scan of the abdomen and pelvis showed inflammatory changes consistent with colitis extending from the transverse colon to the sigmoid colon. The patient also showing systemic manifestation of the colitis including septic shock associated with acute renal failure. patient is currently on Dificid p.o. and Flagyl IV day 10 of 14. Vancomycin p.o. day 9 of 14. No diarrhea at this time. 2. Septic shock most likely secondary to Clostridium difficile colitis. Secondary bacterial infection is always a concern with an inflamed colon. Patient is also on Zosyn for possible secondary infection. Blood cultures are negative. Right stump site signs of ecchymoses and early skin breakdown. Continue Zosyn day 10. Continue antibiotics for another 24-48 hours and if cultures are negative may consider stopping Zosyn. Continued due to rebound leukocytosis and workup in process. Repeat blood cultures are negative. Chest x-ray is unremarkable. 3. Acute renal failure most likely secondary to septic shock. Creatinine has improved to 1.4. Avoid nephrotoxic agents. 4. Respiratory failure currently extubated. 5. Rebound leukocytosis. Repeat chest x-ray was unremarkable bibasilar atelectasis versus early pneumonia. No change from previous x-ray.. Cultures are negative. Indwelling catheter in place with good flow. The right stump site ulceration is clean no necrosis. Zosyn day 10. Continue for another 24-48 hours and if white count continues to trend down and cultures are negative may consider stopping. WBC count is down to 15,000 6. Symmetrical upper and lower extremity weakness workup in progress. Patient was sent to outside facility for MRI of spine [ cervical and thoracic] Subjective Date/time seen: 11/11/20 14:38 Exam Const: General: cooperative HENMT: Head: normal to inspection Mouth: Yes Normal oral and palatal mucosa present Eyes: Pupils: Equal, round and reactive pupils present Neck: Other: [place] collar in place Resp: Effort & Inspection: normal respiratory effort Auscultation: clear to auscultation bilaterally Cardio: Heart sounds: S1 normal heart sound present and S2 normal heart sound present GI: Inspection: normal to inspection Auscultation: normal bowel sounds : Other: indwelling catheter in place. No scrotal edema. Skin: General skin exam: normal color Lesions: no lesions Rashes: no rashes Neuro: General: oriented to person Extrem: Right upper extremity: normal to inspection Left upper extremity: normal to inspection Right lower extremity: normal to inspection ( Stump site ulceration is clean. No erythema) Left lower extremity: normal to inspection ( stump sites clean.) Objective Data Vital Signs Vital Signs: Vital Signs - 24 hr 11/10/20 15:00 11/10/20 15:12 11/10/20 16:00 Temperature 36.6 C Pulse Rate 70 66 68 Respiratory Rate 30 H 24 H 28 H Blood Pressure 152/54 H Pulse Oximetry 93 11/10/20 18:00 11/10/20 20:00 11/10/20 20:52 Temperature 38.0 C H Pulse Rate 61 60 67 Respiratory Rate 30 H 36 H 38 H Blood Pressure 186/69 H 179/63 H Pulse Oximetry 94 94 11/10/20 21:04 11/10/20 22:00 11/11/20 00:00 Temperature 37.9 C H Pulse Rate 60 57 L 59 L Respiratory Rate 35 H 37 H Blood Pressure 175/56 H Pulse Oximetry 94 11/11/20 02:00 11/11/20 02:49 11/11/20 02:56 Temperature Pulse Rate 59 L 55 L 56 L Respiratory Rate 33 H 28 H 31 H Blood Pressure 170/60 H Pulse Oximetry 95 11/11/20 04:00 11/11/20 06:00 11/11/20 08:00 Temperature 37.7 C H 35.7 C L Pulse Rate 60 52 L 46 L Respiratory Rate 26 H 32 H Blood Pressure 139/52 L 146/58 H Pulse Oximetry 95 96 11/11/20 08:15 11/11/20 08:28 11/11/20 08:49 Temperature Pulse Rate 55 L 57 L 56 L Respiratory Rate 18 22 H Blood Pressure Pulse Oximetry 96 11/11/20 08:50 11/11/20 10:0
[2020-11-11 16:34] LABS: Glucose Point of Care 211 mg/dl (65-105)
[2020-11-11] MEDS: amLODIPine BESYLATE 5 MG TABLET 10 MG PO (17:06)
[2020-11-11] MEDS: INSULIN ASPART (*BKC) 100 UNITS/ML SUB-Q (17:06)
[2020-11-11 21:28] LABS: Glucose Point of Care 111 mg/dl (65-105)
[2020-11-12] VITALS (18 sets, daily range): BP systolic 138–167; BP diastolic 48–75; PULSE 50–78; RESP 17–27; TEMP 36.6–37.3; O2SAT 96–97; BMI 11.0
[2020-11-12] MEDS: IPRATROPIUM BR 0.02% INH SOLN 0.5 MG/2.5 ML VIAL INHALATION ×4 (01:26→19:31)
[2020-11-12] MEDS: LEVALBUTEROL NEB 1.25 MG/3 ML 0.63 MG INHALATION ×4 (01:26→19:31)
[2020-11-12] MEDS: metroNIDAZOLE 500 MG/ISO 100ML 500 MG/100 ML BAG 100 MG IVPB ×4 (03:23→21:27)
[2020-11-12 04:27] LABS: Hematocrit 32.2 % (42.0-52.0); Hemoglobin 10.1 g/dL (14.0-18.0); Mean Corpuscular HGB Conc 31.4 g/dl (32-36); Mean Corpuscular Hemoglobin 26.9 pg (26-34); Mean Corpuscular Volume 85.6 fl (80-100); Platelet Count Result 301 k/mm3 (150-375); Red Blood Count 3.76 M/mm3 (4.6-6.20); Red Cell Distribution Width 16.6 % (11.5-14.5); White Blood Count 13.9 K/mm3 (4.5-10.0)
[2020-11-12 04:47] LABS: Alanine Aminotransferase 26 U/L (4-50); Albumin Level 2.8 g/dL (3.5-5.1); Alkaline Phosphatase 36 U/L (38-126); Anion Gap 6 mmol/L (8-16); Aspartate Amino Transferase 34 U/L (17-59); Bilirubin,Total 0.7 mg/dL (0.2-1.3); Blood Urea Nitrogen 34 mg/dL (9-20); Carbon Dioxide 28 mmol/L (22-30); Chloride 104 mmol/L (98-107); Estimated CRCL calculation 105 ml/min; Estimated Glomerular Filt Rate > 60; Glucose 57 mg/dL (65-110); Magnesium 2.4 mg/dL (1.6-2.3); Potassium 3.4 mmol/L (3.4-5.0); Sodium 138 mmol/L (137-145)
[2020-11-12] MEDS: DEXTROSE 50% 25 GM/50 ML SYRINGE IV PUSH (04:55)
[2020-11-12 06:38] LABS: Glucose Point of Care 78 mg/dl (65-105)
[2020-11-12 07:08] LABS: Glucose Point of Care 107 mg/dl (65-105)
[2020-11-12 07:14] LABS: Glucose Point of Care 123 mg/dl (65-105)
[2020-11-12] MEDS: CENTRAL LINE FLUSH 10 ML IV PUSH ×3 (07:29→21:27)
[2020-11-12 08:31] LABS: Glucose Point of Care 100 mg/dl (65-105)
--- NOTE | 2020-11-12 10:36 | WPDNEUROPN ---
Progress Note: A&P Additional Plan when he is more stable which should try to get the CT scan of the cervical spine for the sake of documentation Exam Narrative: Exam Narrative: on examination he is awake alert follows instructions fairly well his speech normal with no dysphagia or dysarthria cranial examination is normal and motor examination revealed him to have ability to move both upper and lower extremities with no change since yesterday treatment will be continued as such Objective Data Vital Signs Vital Signs: Vital Signs - 24 hr 11/11/20 12:00 11/11/20 13:32 11/11/20 13:37 Temperature 37.1 C Pulse Rate 56 L 59 L 59 L Respiratory Rate 31 H 24 H 24 H Blood Pressure 170/67 H Pulse Oximetry 96 11/11/20 14:00 11/11/20 16:00 11/11/20 16:54 Temperature 36.3 C L Pulse Rate 62 56 L 53 L Respiratory Rate 27 H Blood Pressure 164/66 H Pulse Oximetry 95 11/11/20 18:00 11/11/20 19:58 11/11/20 20:00 Temperature 37.3 C Pulse Rate 52 L 50 L 50 L Respiratory Rate 22 H 22 H Blood Pressure 152/82 H Pulse Oximetry 96 11/11/20 20:07 11/11/20 22:00 11/12/20 00:00 Temperature 36.8 C Pulse Rate 46 L 55 L 53 L Respiratory Rate 21 H 20 Blood Pressure 149/60 H Pulse Oximetry 96 11/12/20 01:27 11/12/20 04:00 11/12/20 06:00 Temperature 36.6 C Pulse Rate 51 L 50 L 50 L Respiratory Rate 20 20 Blood Pressure 151/48 H Pulse Oximetry 96 11/12/20 07:53 Temperature Pulse Rate 58 L Respiratory Rate 21 H Blood Pressure Pulse Oximetry Intake/Output Intake/Output: Intake & Output 11/09/20 11/10/20 11/11/20 11/12/20 23:59 23:59 23:59 23:59 Intake Total 690 1900 1440 830 Output Total 1850 1651 1100 1050 Balance -1160 249 340 -220 Meds/Results Medications: Active Medications Generic Name Dose Route Start Last Admin Trade Name Freq PRN Reason Stop Dose Admin Acetaminophen 650 mg 11/04/20 07:36 11/10/20 05:54 Acetaminophen 325 Mg Tablet PO 650 mg Q4H PRN Administration Mild Pain (1-3) or Fever Hydrocodone Bitart/Acetaminophen 1 tab 11/07/20 11:02 Hydrocodone/Acetaminophen (*Crx) 5-325 Mg Tablet PO Q4H PRN Pain Rated 4-6 Amlodipine Besylate 10 mg 11/10/20 18:00 11/11/20 17:06 Amlodipine Besylate 5 Mg Tablet PO 10 mg QPM FAROOQ Administration Apixaban 5 mg 11/08/20 17:00 11/11/20 20:44 Apixaban 5 Mg Tablet PO 5 mg Q12HR FAROOQ Administration Carvedilol 12.5 mg 11/11/20 08:00 11/11/20 16:54 Carvedilol 12.5 Mg Tablet PO Not Given BIDWM FAROOQ Dextrose 12.5 gm 11/02/20 07:35 11/12/20 04:55 Dextrose 50% 25 Gm/50 Ml Syringe IV PUSH 12.5 gm PRN PRN Administration Hypoglycemia Protocol Digoxin 125 mcg 11/11/20 09:00 11/11/20 08:50 Digoxin Tab 125 Mcg Tablet PO 125 mcg QAM FAROOQ Administration Fidaxomicin 200 mg 11/10/20 21:00 11/11/20 20:43 Fidaxomicin 200 Mg Tablet PO 200 mg Q12HR FAROOQ Administration Glucagon 1 mg 11/02/20 07:35 Glucagon For Inj 1 Mg Vial IM PRN PRN Hypoglycemia Protocol Glucose 15 gm 11/02/20 07:35 Glucose Oral Gel 15 Gm Of Glucse In 37.5 Gm Tube PO PRN PRN Hypoglycemia Protocol Hydralazine HCl 20 mg 11/07/20 21:28 11/10/20 05:30 Hydralazine Hcl 20 Mg/Ml Vial IV PUSH 20 mg Q4HR PRN Administration Hypertension Dextrose 1,000 mls @ 100 mls/hr 11/02/20 07:35 Dextrose 5% 1,000 Ml IVPB PRN PRN Hypoglycemia Protocol Metronidazole 500 mg in 100 mls @ 100 mls/hr 11/02/20 21:00 11/12/20 04:21 Flagyl 500 Mg/Iso Soln 100 Ml IVPB Infused Q6H FAROOQ Infusion Piperacillin/Tazobactam/Dextrose 3.375 gm in 50 mls @ 100 mls/hr 11/03/20 15:00 11/12/20 03:50 Zosyn 3.375 Gm/D5w 50ml Pm IVPB Infused Q6H FAROOQ Infusion Insulin Aspart 4 - 8 units 11/09/20 16:30 11/12/20 07:29 Insulin Aspart (*Bkc) 100 Units/Ml SUB-Q Not Given ACHS [facility] Protocol Insulin Glargine
[2020-11-12] MEDS: POTASSIUM CHLORIDE 20 MEQ TABLET 40 MEQ PO (10:47)
[2020-11-12] MEDS: APIXABAN 5 MG TABLET PO ×2 (10:48→21:27)
[2020-11-12] MEDS: FIDAXOMICIN 200 MG TABLET PO ×2 (10:48→21:27)
[2020-11-12] MEDS: PANTOPRAZOLE SODIUM IV 40 MG VIAL IV PUSH (10:49)
[2020-11-12] MEDS: LOSARTAN POTASSIUM 100 MG TABLET PO (10:49)
[2020-11-12] MEDS: INSULIN GLARGINE (*BKC) 100 UNITS/ML 50 UNITS SUB-Q ×2 (10:59→21:26)
--- NOTE | 2020-11-12 11:29 | PCDIET ---
Nutrition Follow-Up Complete: Nutrition Diagnosis: Altered GI function related to c. diff colitis as evidenced by diarrhea and recommended bowel rest. Nutrition Goal: Patient to meet estimated nutritional needs. Goal in progress. Intakes 0-50% since last review on diabetic diet. Nursing fully assists with meals, as patient unable to feed self. Recommend continuing diabetic diet with Glucerna Shake TID. Last recorded weight is 204.3 kg which is stable with last review. Bowel Motility: BM x 2 today. Labs Reviewed: WBC (13.9), RBC (3.76), Hgb (10.1), Hct (32.2), Glu (123), BUN (34), Alb (2.8), Isidro Ca (8.96), Mg (2.4) Meds Noted: Protonix, Zosyn, Vancomycin, Norvasc, Hydralazine, Lantus, Atrovent, Xopenex, Cozaar, Flagyl Additional Notes: Buttocks with unstageable area; right distal leg ulcer; macerated sacrum. Will continue to monitor with same goal. Nutrition Monitoring and Evaluation: Follow up in 3 days.
[2020-11-12 11:37] LABS: Glucose Point of Care 86 mg/dl (65-105)
--- NOTE | 2020-11-12 12:34 | PM.IMPN ---
Progress Note: A&P Assessment and Plan (1) Septic shock: Code(s): A41.9 - Sepsis, unspecified organism; R65.21 - Severe sepsis with septic shock Status: Acute Assessment and Plan: RESOLVED septic shock could be related to C diff colitis. - off all pressors at this time. IV fluids have been discontinued - appreciate GI and infectious disease evaluation and recommendations. Continue Zosyn, p.o. vancomycin and fidaxomicin - resolved (2) Acute respiratory failure: Qualifiers: Respiratory failure complication: hypoxia Qualified Code(s): J96.01 - Acute respiratory failure with hypoxia Code(s): J96.00 - Acute respiratory failure, unspecified whether with hypoxia or hypercapnia Status: Acute Assessment and Plan: RESOLVED patient with metabolic encephalopathy likely related to uremia, septic shock, hypotension, infection - patient was intubated on 11/01/2020 - extubated on 11/07 - he does rapid shallow breathing likely from discomfort and C-collar. he denies any shortness of breath and is saturating adequately on 2 L nasal cannula - he also has sleep apnea but does not wear his CPAP at home and refused here in the hospital too - I have discussed with RT and will use EzPAP every 6 hours to minimize atelectasis - Lasix was given IV (3) Acute renal failure superimposed on stage 3 chronic kidney disease: Qualifiers: Acute renal failure type: unspecified Qualified Code(s): N17.9 - Acute kidney failure, unspecified; N18.3 - Chronic kidney disease, stage 3 (moderate) Code(s): N17.9 - Acute kidney failure, unspecified; N18.3 - Chronic kidney disease, stage 3 (moderate) Status: Acute Assessment and Plan: RESOLVED, creatinine down to 1.2 acute on chronic kidney disease likely related to hypotension, septic shock, hypovolemia 2nd diarrhea, medications such as spironolactone, torsemide, losartan, Coreg which he takes at home - patient received adequate fluids - 11/01/2020:renal ultrasound Showed normal kidneys and no hydronephrosis - appreciate Nephrology evaluation recommendation - creatinine and BUN has normalized - replace low potassium (4) Atrial fibrillation: Qualifiers: Atrial fibrillation type: unspecified Qualified Code(s): I48.91 - Unspecified atrial fibrillation Code(s): I48.91 - Unspecified atrial fibrillation Status: Acute Assessment and Plan: patient in AFib, rate controlled. On Eliquis at home which was held earlier and patient was started on heparin - continue Eliquis now - patient bradycardic in the 50s, hold digoxin and Coreg - digoxin level 0.8 (5) Colitis: Code(s): K52.9 - Noninfective gastroenteritis and colitis, unspecified Status: Acute Assessment and Plan: C diff colitis - NG / OG tube to low intermittent suction - GI, ID and surgery following the patient. Patient's brother declined surgical option continue p.o. 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
[2020-11-12 16:15] LABS: Glucose Point of Care 141 mg/dl (65-105)
[2020-11-12] MEDS: amLODIPine BESYLATE 5 MG TABLET 10 MG PO (17:40)
[2020-11-12 21:22] LABS: Glucose Point of Care 184 mg/dl (65-105)
[2020-11-13] VITALS (16 sets, daily range): BP systolic 145–169; BP diastolic 58–69; PULSE 58–77; RESP 18–28; TEMP 37.1–37.3; O2SAT 95–97
[2020-11-13] MEDS: LEVALBUTEROL NEB 1.25 MG/3 ML 0.63 MG INHALATION ×4 (01:31→21:09)
[2020-11-13] MEDS: IPRATROPIUM BR 0.02% INH SOLN 0.5 MG/2.5 ML VIAL INHALATION ×4 (01:31→21:09)
[2020-11-13 01:33] LABS: Glucose Point of Care 150 mg/dl (65-105)
[2020-11-13 05:52] LABS: Alanine Aminotransferase 25 U/L (4-50); Alkaline Phosphatase 42 U/L (38-126); Anion Gap 5 mmol/L (8-16); Aspartate Amino Transferase 29 U/L (17-59); Basophils Percent Auto 0.3 % (0.2-1.2); Bilirubin,Total 0.6 mg/dL (0.2-1.3); Blood Urea Nitrogen 28 mg/dL (9-20); Calcium 7.8 mg/dL (8.4-10.2); Carbon Dioxide 26 mmol/L (22-30); Chloride 107 mmol/L (98-107); Eosinophils Absolute Auto 0.1 K/mm3 (0-0.3); Eosinophils Percent Auto 0.9 % (0-4.4); Estimated CRCL calculation 125 ml/min; Estimated Glomerular Filt Rate > 60; Glucose 146 mg/dL (65-110); Hematocrit 31.7 % (42.0-52.0); Hemoglobin 9.8 g/dL (14.0-18.0); Immature Granulocyte Absolute 0.08 K/mm3 (0.00-0.031); Immature Granulocyte Percent A 0.7 % (0-0.5); Lymphocytes Absolute Auto 0.65 K/mm3 (0.9-3.2); Lymphocytes Percent Auto 5.4 % (18.3-44.2); Magnesium 2.3 mg/dL (1.6-2.3); Mean Corpuscular HGB Conc 30.9 g/dl (32-36); Mean Corpuscular Hemoglobin 26.6 pg (26-34); Mean Corpuscular Volume 85.9 fl (80-100); Mean Platelet Volume 9.1 fl (7.4-10.4); Monocytes Absolute Auto 0.8 K/mm3 (0.1-0.6); Monocytes Percent Auto 6.3 % (2.6-8.5); Neutrophils Absolute Auto 10.4 K/mm3 (1.3-6.7); Neutrophils Percent Auto 86.4 % (45.5-73.1); Phosphorus 3.3 mg/dL (2.5-4.5); Platelet Count Result 281 k/mm3 (150-375); Red Blood Count 3.69 M/mm3 (4.6-6.20); Red Cell Distribution Width 16.7 % (11.5-14.5); Sodium 138 mmol/L (137-145)
[2020-11-13] MEDS: CENTRAL LINE FLUSH 10 ML IV PUSH ×3 (07:04→21:07)
[2020-11-13] MEDS: APIXABAN 5 MG TABLET PO ×2 (09:24→20:53)
[2020-11-13] MEDS: FIDAXOMICIN 200 MG TABLET PO ×2 (09:24→20:53)
[2020-11-13] MEDS: FUROSEMIDE INJ 40 MG/4 ML VIAL IV PUSH (09:24)
[2020-11-13] MEDS: LOSARTAN POTASSIUM 100 MG TABLET PO (09:24)
[2020-11-13] MEDS: PANTOPRAZOLE SODIUM IV 40 MG VIAL IV PUSH (09:25)
[2020-11-13] MEDS: INSULIN GLARGINE (*BKC) 100 UNITS/ML 50 UNITS SUB-Q ×2 (09:26→20:55)
[2020-11-13 10:10] LABS: Glucose Point of Care 149 mg/dl (65-105)
--- NOTE | 2020-11-13 10:46 | PM.IMPN ---
Progress Note: A&P Assessment and Plan (1) Septic shock: Code(s): A41.9 - Sepsis, unspecified organism; R65.21 - Severe sepsis with septic shock Status: Acute Assessment and Plan: RESOLVED septic shock could be related to C diff colitis. - off all pressors at this time. IV fluids have been discontinued - appreciate GI and infectious disease evaluation and recommendations. Continue Zosyn, p.o. vancomycin and fidaxomicin (2) Acute respiratory failure: Qualifiers: Respiratory failure complication: hypoxia Qualified Code(s): J96.01 - Acute respiratory failure with hypoxia Code(s): J96.00 - Acute respiratory failure, unspecified whether with hypoxia or hypercapnia Status: Acute Assessment and Plan: RESOLVED patient with metabolic encephalopathy likely related to uremia, septic shock, hypotension, infection - patient was intubated on 11/01/2020 - extubated on 11/07 - he does rapid shallow breathing likely from discomfort and C-collar. he denies any shortness of breath and is saturating adequately on 2 L nasal cannula - he also has sleep apnea but does not wear his CPAP at home and refused here in the hospital too - I have discussed with RT and will use EzPAP every 6 hours to minimize atelectasis - continue diuresis (3) Acute renal failure superimposed on stage 3 chronic kidney disease: Qualifiers: Acute renal failure type: unspecified Qualified Code(s): N17.9 - Acute kidney failure, unspecified; N18.3 - Chronic kidney disease, stage 3 (moderate) Code(s): N17.9 - Acute kidney failure, unspecified; N18.3 - Chronic kidney disease, stage 3 (moderate) Status: Acute Assessment and Plan: RESOLVED, creatinine down to 1.0 acute on chronic kidney disease likely related to hypotension, septic shock, hypovolemia 2nd diarrhea, medications such as spironolactone, torsemide, losartan, Coreg which he takes at home - patient received adequate fluids - 11/01/2020:renal ultrasound Showed normal kidneys and no hydronephrosis - appreciate Nephrology evaluation recommendation - creatinine and BUN has normalized - replace low potassium (4) Atrial fibrillation: Qualifiers: Atrial fibrillation type: unspecified Qualified Code(s): I48.91 - Unspecified atrial fibrillation Code(s): I48.91 - Unspecified atrial fibrillation Status: Acute Assessment and Plan: patient in AFib, rate controlled. On Eliquis at home which was held earlier and patient was started on heparin - continue Eliquis now - patient bradycardic in the 50s, hold digoxin and Coreg - digoxin level 0.8 (5) Colitis: Code(s): K52.9 - Noninfective gastroenteritis and colitis, unspecified Status: Acute Assessment and Plan: C diff colitis - NG / OG tube to low intermittent suction - GI, ID and surgery following the patient. Patient's brother declined surgical option continue p.o. vancomycin, fidaxomicin, IV metronidazole ( stop date 11/15/2020) - patient has a history of C diff colitis x3 in the past -10/31: stool for C diff is positive - stool culture negative to date - continue antibiotics per Infectious Disease (6) Morbid obesity: Code(s): E66.01 - Morbid (severe) obesity due to excess calories Status: Acute Assessment and Plan: chronic morbid obesity (7) Diabetes mellitus with hyperglycemia: Qualifiers: Diabetes mellitus type: type 2 Diabetes mellitus fpc insulin use: with terminal operations supervisor use Qualified Code(s): E11.65 - Type 2 diabetes mellitus with hyperglycemia; Z79.4 - intermediate (current) use of insulin Code(s): E11.65 - Type 2 diabetes mellitus with hyperglycemia Status: Acute Assessment and Plan: Continue Lantus and sliding scale insulin infusion has been weaned off diabetic diet (8) Amputation stump necrosis: Code(s): T87.50 - Necrosis of amputation st
--- NOTE | 2020-11-13 14:12 | WPDINFPN2 ---
Progress Note: A&P Assessment and Plan (1) C. difficile colitis: Code(s): A04.72 - Enterocolitis due to Clostridium difficile, not specified as recurrent Status: Acute Assessment and Plan: 1. C diff infection, responsible for his septic shock, doing well 2. Bilateral arm numbness and weakness, non infectious 3. Obesity REC Complete 14 day course of fidaxomicin, in 2 days. Begin tapering dose of oral Vanc, see orders. Ok transfer. Call if Qs Subjective Date/time seen: 11/13/20 14:12 Interval history: no diarrhea. No abd pain. Plans on LTAC today Exam Narrative: Exam Narrative: afebrile Const: General: no acute distress Eyes: General: appearance normal, both eyes and all related structures Resp: Effort & Inspection: normal respiratory effort Auscultation: clear to auscultation bilaterally Cardio: Rate: regular rate Rhythm: regular rhythm Heart sounds: no murmurs GI: Inspection: distended GI Palp: Yes Soft to palpation, No Tenderness to palpation present (GI) and No Guarding due to palpation present (GI) Percussion: Yes normal to percussion Auscultation: normal bowel sounds Skin: General skin exam: normal color and no rashes or lesions noted Objective Data Vital Signs Vital Signs: Vital Signs - 24 hr 11/12/20 14:28 11/12/20 16:00 11/12/20 18:00 Temperature Pulse Rate 67 61 65 Respiratory Rate 22 H 20 Blood Pressure 152/66 H Pulse Oximetry 96 11/12/20 19:31 11/12/20 19:41 11/12/20 20:03 Temperature Pulse Rate 67 64 60 Respiratory Rate 26 H 22 H Blood Pressure Pulse Oximetry 11/12/20 20:06 11/12/20 20:09 11/12/20 22:00 Temperature 37.3 C Pulse Rate 60 66 66 Respiratory Rate 22 H 18 Blood Pressure 138/75 Pulse Oximetry 96 96 11/13/20 00:00 11/13/20 01:32 11/13/20 01:41 Temperature 37.2 C Pulse Rate 69 61 67 Respiratory Rate 18 25 H 20 Blood Pressure 158/68 H Pulse Oximetry 97 97 11/13/20 02:00 11/13/20 04:00 11/13/20 06:00 Temperature 37.1 C Pulse Rate 62 68 68 Respiratory Rate 18 Blood Pressure 145/58 H Pulse Oximetry 95 11/13/20 08:00 11/13/20 08:37 11/13/20 08:49 Temperature 37.1 C Pulse Rate 67 58 L 59 L Respiratory Rate 25 H 18 18 Blood Pressure 168/60 H Pulse Oximetry 96 11/13/20 12:00 Temperature 37.1 C Pulse Rate 75 Respiratory Rate 28 H Blood Pressure 161/69 H Pulse Oximetry 96 Intake/Output Intake/Output: Intake & Output 11/10/20 11/11/20 11/12/20 11/13/20 23:59 23:59 23:59 23:59 Intake Total 1900 1440 1740 290 Output Total 1651 1100 1950 2050 Balance 249 977 -198 -4645 Meds/Results Medications: Active Medications Generic Name Dose Route Start Last Admin Trade Name Freq PRN Reason Stop Dose Admin Acetaminophen 650 mg 11/04/20 07:36 11/10/20 05:54 Acetaminophen 325 Mg Tablet PO 650 mg Q4H PRN Administration Mild Pain (1-3) or Fever Hydrocodone Bitart/Acetaminophen 1 tab 11/07/20 11:02 Hydrocodone/Acetaminophen (*Crx) 5-325 Mg Tablet PO Q4H PRN Pain Rated 4-6 Amlodipine Besylate 10 mg 11/10/20 18:00 11/12/20 17:40 Amlodipine Besylate 5 Mg Tablet PO 10 mg QPM FAROOQ Administration Apixaban 5 mg 11/08/20 17:00 11/13/20 09:24 Apixaban 5 Mg Tablet PO 5 mg Q12HR FAROOQ Administration Carvedilol 12.5 mg 11/11/20 08:00 11/12/20 11:01 Carvedilol 12.5 Mg Tablet PO Not Given BIDWM FAROOQ Dextrose 12.5 gm 11/02/20 07:35 11/12/20 04:55 Dextrose 50% 25 Gm/50 Ml Syringe IV PUSH 12.5 gm PRN PRN Administration Hypoglycemia Protocol Digoxin 125 mcg 11/11/20 09:00 11/12/20 11:00 Digoxin Tab 125 Mcg Tablet PO Not Given QAM FAROOQ Fidaxomicin 200 mg 11/10/20 21:00 11/13/20 09:24 Fidaxomicin 200 Mg Tablet PO 200 mg Q12HR FAROOQ Administration Glucagon 1 mg 11/02/20 07:35 Glucagon For Inj 1 Mg Vial IM PRN PRN Hypoglycemia Protocol Glucose 15 gm 11/02/20 07:35 Gluco
[2020-11-13 15:50] LABS: Glucose Point of Care 210 mg/dl (65-105)
[2020-11-13] MEDS: VANCOMYCIN ORAL 125 MG/2.5 ML SYRUP PO (16:14)
[2020-11-13] MEDS: amLODIPine BESYLATE 5 MG TABLET 10 MG PO (16:14)
[2020-11-13] MEDS: INSULIN ASPART (*BKC) 100 UNITS/ML SUB-Q ×2 (16:15→20:55)
--- NOTE | 2020-11-13 21:35 | PC.NURSE ---
Patient to move to 2nd medical room 260.
[2020-11-13 23:04] LABS: Glucose Point of Care 249 mg/dl (65-105)
[2020-11-14] VITALS (9 sets, daily range): BP systolic 136–150; BP diastolic 56–60; PULSE 67–92; RESP 18–24; TEMP 36.7–36.9; O2SAT 97–100
[2020-11-14] MEDS: VANCOMYCIN ORAL 125 MG/2.5 ML SYRUP PO ×3 (00:54→13:58)
[2020-11-14 04:16] LABS: Glucose Point of Care 196 mg/dl (65-105)
[2020-11-14 04:22] LABS: Basophils Percent Auto 0.3 % (0.2-1.2); Eosinophils Absolute Auto 0.1 K/mm3 (0-0.3); Eosinophils Percent Auto 0.9 % (0-4.4); Hematocrit 32.3 % (42.0-52.0); Hemoglobin 9.9 g/dL (14.0-18.0); Immature Granulocyte Absolute 0.07 K/mm3 (0.00-0.031); Immature Granulocyte Percent A 0.7 % (0-0.5); Lymphocytes Absolute Auto 0.69 K/mm3 (0.9-3.2); Mean Corpuscular HGB Conc 30.7 g/dl (32-36); Mean Platelet Volume 8.8 fl (7.4-10.4); Monocytes Absolute Auto 0.7 K/mm3 (0.1-0.6); Monocytes Percent Auto 6.6 % (2.6-8.5); Neutrophils Absolute Auto 8.4 K/mm3 (1.3-6.7); Neutrophils Percent Auto 84.5 % (45.5-73.1); Platelet Count Result 247 k/mm3 (150-375); Red Blood Count 3.67 M/mm3 (4.6-6.20); Red Cell Distribution Width 16.6 % (11.5-14.5); White Blood Count 9.9 K/mm3 (4.5-10.0)
[2020-11-14 04:35] LABS: Alanine Aminotransferase 24 U/L (4-50); Albumin Level 3.2 g/dL (3.5-5.1); Alkaline Phosphatase 45 U/L (38-126); Anion Gap 5 mmol/L (8-16); Aspartate Amino Transferase 30 U/L (17-59); Bilirubin,Total 0.6 mg/dL (0.2-1.3); Blood Urea Nitrogen 24 mg/dL (9-20); Calcium 8.4 mg/dL (8.4-10.2); Carbon Dioxide 28 mmol/L (22-30); Chloride 105 mmol/L (98-107); Estimated CRCL calculation 125 ml/min; Estimated Glomerular Filt Rate > 60; Glucose 194 mg/dL (65-110); Magnesium 2.1 mg/dL (1.6-2.3); Potassium 4.1 mmol/L (3.4-5.0); Sodium 138 mmol/L (137-145)
[2020-11-14] MEDS: CENTRAL LINE FLUSH 10 ML IV PUSH ×2 (05:57→13:58)
[2020-11-14] MEDS: LEVALBUTEROL NEB 1.25 MG/3 ML 0.63 MG INHALATION ×2 (08:04→13:56)
[2020-11-14] MEDS: IPRATROPIUM BR 0.02% INH SOLN 0.5 MG/2.5 ML VIAL INHALATION ×2 (08:04→13:56)
[2020-11-14] MEDS: FIDAXOMICIN 200 MG TABLET PO (08:20)
[2020-11-14] MEDS: APIXABAN 5 MG TABLET PO (08:20)
[2020-11-14] MEDS: LOSARTAN POTASSIUM 100 MG TABLET PO (08:21)
[2020-11-14] MEDS: PANTOPRAZOLE SODIUM IV 40 MG VIAL IV PUSH (08:22)
[2020-11-14] MEDS: INSULIN GLARGINE (*BKC) 100 UNITS/ML 50 UNITS SUB-Q (08:29)
[2020-11-14 10:45] LABS: Glucose Point of Care 153 mg/dl (65-105)
--- NOTE | 2020-11-14 11:18 | PM.IMPN ---
Progress Note: A&P Assessment and Plan (1) Septic shock: Code(s): A41.9 - Sepsis, unspecified organism; R65.21 - Severe sepsis with septic shock Status: Acute Assessment and Plan: RESOLVED septic shock could be related to C diff colitis. - off all pressors at this time. IV fluids have been discontinued - appreciate GI and infectious disease evaluation and recommendations. Continue Zosyn, p.o. vancomycin and fidaxomicin (2) Acute respiratory failure: Qualifiers: Respiratory failure complication: hypoxia Qualified Code(s): J96.01 - Acute respiratory failure with hypoxia Code(s): J96.00 - Acute respiratory failure, unspecified whether with hypoxia or hypercapnia Status: Acute Assessment and Plan: RESOLVED patient with metabolic encephalopathy likely related to uremia, septic shock, hypotension, infection - patient was intubated on 11/01/2020 - extubated on 11/07 - he does rapid shallow breathing likely from discomfort and C-collar. he denies any shortness of breath and is saturating adequately on 2 L nasal cannula - he also has sleep apnea but does not wear his CPAP at home and refused here in the hospital too - I have discussed with RT and will use EzPAP every 6 hours to minimize atelectasis - continue diuresis (3) Acute renal failure superimposed on stage 3 chronic kidney disease: Qualifiers: Acute renal failure type: unspecified Qualified Code(s): N17.9 - Acute kidney failure, unspecified; N18.3 - Chronic kidney disease, stage 3 (moderate) Code(s): N17.9 - Acute kidney failure, unspecified; N18.3 - Chronic kidney disease, stage 3 (moderate) Status: Acute Assessment and Plan: RESOLVED, creatinine down to 1.0 acute on chronic kidney disease likely related to hypotension, septic shock, hypovolemia 2nd diarrhea, medications such as spironolactone, torsemide, losartan, Coreg which he takes at home - patient received adequate fluids - 11/01/2020:renal ultrasound Showed normal kidneys and no hydronephrosis - appreciate Nephrology evaluation recommendation - creatinine and BUN has normalized - replace low potassium (4) Atrial fibrillation: Qualifiers: Atrial fibrillation type: unspecified Qualified Code(s): I48.91 - Unspecified atrial fibrillation Code(s): I48.91 - Unspecified atrial fibrillation Status: Acute Assessment and Plan: patient in AFib, rate controlled. On Eliquis at home which was held earlier and patient was started on heparin - continue Eliquis now - patient bradycardic in the 50s, hold digoxin and Coreg - digoxin level 0.8 (5) Colitis: Code(s): K52.9 - Noninfective gastroenteritis and colitis, unspecified Status: Acute Assessment and Plan: C diff colitis NG/OG discontinued patient tolerating p.o. - NG / OG tube to low intermittent suction - GI, ID and surgery following the patient. Patient's brother declined surgical option continue p.o. 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
--- NOTE | 2020-11-14 12:59 | PCNFU ---
Nutrition Follow-Up Complete: Altered GI function related to Clostridium Difficile as evidenced by diarrhea and recommended bowel rest. Goal: Patient to meet estimated nutritional needs. Patient is meeting current goal. Will continue to meet goal. Pt current nutrition is [facility]. Patient is receiving Glucerna nutritional shake TID providing 220 kcals and 10 gm protein. Last recorded weight is 221 kg. 201.5 kg upon admission. Bowel Motility: Last BM: 11/13 Labs Reviewed: Hgb 9.9, Hct 32.3, Alb 3.2, Na 138, K 4.1, BUN 24, Cr 1.0, Glu 194 Meds Noted: Tylenol, [place], Norvasc, Eliquis, Coreg, Dextrose, Digoxin, Dificid, Glutose 15, Hydralazine Hcl, Novolog, Lantus, Atrovent Neb, Labetalol Hcl, Cozaar, Aloe [place], Morphine, Zofran, Protonix, Central line flush, Vancomycin. Additional Notes: Patient reports liking the Glucerna shakes and has been consuming them. Appetite is improving. Patient reports no issues chewing or swallowing. 90 to 100% of meals are being consumed. No skin break down. Will continue to monitor weight, meal consumption, and bowel motility. Follow up in 5 days.
--- NOTE | 2020-11-14 13:29 | PCNSR ---
On 11/14/20, the student,Ashlyn Nguyễn, provided care and [facility]. I have reviewed the student's documentation and agree with the findings.
[2020-11-14 13:33] LABS: Glucose Point of Care 168 mg/dl (65-105)
--- NOTE | 2020-11-14 13:56 | PM.DS ---
DS: Admitting Diagnosis Admitting Diagnosis (1) Diarrhea: Qualifiers: Diarrhea type: presumed infectious Qualified Code(s): R19.7 - Diarrhea, unspecified Code(s): R19.7 - Diarrhea, unspecified Status: Acute Assessment and Plan: POSSIBLE TO BE C DIFFICILE PATIENT HAS HAD IN THE PAST AND WITH SIGNIFICANT LEUKOCYTOSIS STARTED ON VANCOMYCIN GI CONSULTED (2) Colitis: Code(s): K52.9 - Noninfective gastroenteritis and colitis, unspecified Status: Acute Assessment and Plan: LIKELY TO BE C DIFFICILE COLITIS ON P.O. VANCOMYCIN (3) Leukocytosis: Qualifiers: Leukocytosis type: unspecified Qualified Code(s): D72.829 - Elevated white blood cell count, unspecified Code(s): D72.829 - Elevated white blood cell count, unspecified Status: Acute Assessment and Plan: APPEARS TO BE SECONDARY TO COLITIS LIKELY TO BE C DIFFICILE (4) RADHA (acute kidney injury): Code(s): N17.9 - Acute kidney failure, unspecified Status: Acute Assessment and Plan: HOLDING SPIRONOLACTONE AND TORSEMIDE IV FLUIDS RENAL ULTRASOUND IN A.M. ISLAS CATHETER (5) Morbid obesity: Code(s): E66.01 - Morbid (severe) obesity due to excess calories Status: Acute Assessment and Plan: ON CLEAR LIQUIDS CURRENTLY (6) Diabetes mellitus with hyperglycemia: Code(s): E11.65 - Type 2 diabetes mellitus with hyperglycemia Status: Acute Assessment and Plan: RESTARTED INSULIN INSULIN SLIDING SCALE NEEDED (7) Atrial fibrillation: Qualifiers: Atrial fibrillation type: unspecified chronic Qualified Code(s): I48.20 - Chronic atrial fibrillation, unspecified Code(s): I48.91 - Unspecified atrial fibrillation Status: Acute Assessment and Plan: RATE CONTROL AND ANTICOAGULATED (8) HTN (hypertension), malignant: Code(s): I10 - Essential (primary) hypertension Status: Chronic Assessment and Plan: STABLE (9) DARIN (obstructive sleep apnea): Code(s): G47.33 - Obstructive sleep apnea (adult) (pediatric) Status: Acute Assessment and Plan: PATIENT REFUSES TO WEAR OXYGEN BY NASAL CANNULA AND IS NONCOMPLIANT WITH CPAP DS: Discharge Diagnosis Discharge Diagnosis (1) Septic shock: Code(s): A41.9 - Sepsis, unspecified organism; R65.21 - Severe sepsis with septic shock Status: Acute Assessment and Plan: RESOLVED septic shock could be related to C diff colitis. - off all pressors at this time. IV fluids have been discontinued - appreciate GI and infectious disease evaluation and recommendations. Continue Zosyn, p.o. vancomycin and fidaxomicin (2) Acute respiratory failure: Qualifiers: Respiratory failure complication: hypoxia Qualified Code(s): J96.01 - Acute respiratory failure with hypoxia Code(s): J96.00 - Acute respiratory failure, unspecified whether with hypoxia or hypercapnia Status: Acute Assessment and Plan: RESOLVED patient with metabolic encephalopathy likely related to uremia, septic shock, hypotension, infection - patient was intubated on 11/01/2020 - extubated on 11/07 - he does rapid shallow breathing likely from discomfort and C-collar. he denies any shortness of breath and is saturating adequately on 2 L nasal cannula - he also has sleep apnea but does not wear his CPAP at home and refused here in the hospital too - I have discussed with RT and will use EzPAP every 6 hours to minimize atelectasis - continue diuresis (3) Acute renal failure superimposed on stage 3 chronic kidney disease: Qualifiers: Acute renal failure type: unspecified Qualified Code(s): N17.9 - Acute kidney failure, unspecified; N18.3 - Chronic kidney disease, stage 3 (moderate) Code(s): N17.9 - Acute kidney failure, unspecified; N18.3 - Chronic kidney disease, stage 3 (moderate) Status: Acute As
== END 2020-11-14 15:30 | DRG 870 ==
LOC: ANHED 17:44 → ANH3MED 18:55 → ANHICU 11-02 06:38 → ANH2MED 11-14 13:24 → ANH3MED 11-17 13:14 → ANHICU 11-17 13:14
PROVIDERS: Internal Medicine; Internal Medicine Infectious Disease; Internal Medicine Nephrology; Admitting Provider Internal Medicine; Emergency Provider Emergency Medicine; PCP Internal Medicine; Visit Provider Internal Medicine
DX: A41.89 Other specified sepsis (principal); R65.21 Severe sepsis with septic shock; G93.41 Metabolic encephalopathy; J96.01 Acute respiratory failure with hypoxia; N17.0 Acute kidney failure with tubular necrosis; A04.72 Enterocolitis due to Clostridium difficile, not specified as recurrent; Z68.44 Body mass index [BMI] 60.0-69.9, adult; I48.20 Chronic atrial fibrillation, unspecified; E87.2 Acidosis; E11.22 Type 2 diabetes mellitus with diabetic chronic kidney disease; I12.9 Hypertensive chronic kidney disease with stage 1 through stage 4 chronic kidney disease, or unspecified chronic kidney disease; N18.30 Chronic kidney disease, stage 3 unspecified; E66.01 Morbid (severe) obesity due to excess calories; R16.1 Splenomegaly, not elsewhere classified; E11.65 Type 2 diabetes mellitus with hyperglycemia; G47.33 Obstructive sleep apnea (adult) (pediatric); I25.10 Atherosclerotic heart disease of native coronary artery without angina pectoris; E11.21 Type 2 diabetes mellitus with diabetic nephropathy; E11.42 Type 2 diabetes mellitus with diabetic polyneuropathy; I73.9 Peripheral vascular disease, unspecified; K80.20 Calculus of gallbladder without cholecystitis without obstruction; L53.8 Other specified erythematous conditions; L89.159 Pressure ulcer of sacral region, unspecified stage; Z79.01 Long term (current) use of anticoagulants; Z90.49 Acquired absence of other specified parts of digestive tract; Z89.511 Acquired absence of right leg below knee; Z89.612 Acquired absence of left leg above knee; Z79.4 Long term (current) use of insulin
CPT/HCPCS: 31500; 36415; 36600; 70450; 71045; 72040; 72050; 72070; 74018; 74019; 74176; 76775; 76882; 80048; 80053; 80069; 80162; 81001; 82274; 82330; 82375; 82436; 82533; 82550; 82570; 82805; 82948; 83036; 83050; 83605; 83690; 83735; 84100; 84133; 84300; 85025; 85027; 85610; 85730; 85999; 86140; 87040; 87045; 87046; 87070; 87086; 87088; 87205; 87324; 87427; 89055; 94002; 94003; 94640; 94660; 94668; 96361; 96374; 96375; 97110; 97161; 97167; 99285; A9270; C1751; C9113; G0378; J0131; J0171; J0360; J1160; J1644; J1720; J1815; J1940; J2250; J2270; J2370; J2405; J2543; J3010; J3370; J3475; J3480; J7030; J7040; J7050; J7060; L0140; P9047

== ENCOUNTER 2020-11-15 21:49 | Inpatient (IN) | payer MEDICARE, OTHER, SELFPAY ==
--- NOTE | ~2020-11-15 | XR_ITS ---
EXAMINATION: XR chest 1V portable EXAM DATE: 11/16/2020 21:20 INDICATION: PICC line placement. TECHNIQUE: Portable AP frontal chest x-ray was obtained. There is no prior study for comparison. FINDINGS: There is a left-sided PICC line, tip projecting over cavoatrial junction. Cardiomegaly and pulmonary vascular congestion. Possible mild pulmonary edema. No confluent consolidation, pneumothora x or pleural effusion suspected. There are no osseous abnormalities identified. IMPRESSION: 1. PICC line tip at expected position. 2. Congestive changes, possible mild pulmonary edema. Reviewed, dictated and finalized at location A.
--- NOTE | ~2020-11-15 | US_ITS ---
EXAMINATION: US renal BI DATE: 11/18/2020 15:07 INDICATION: Funguria TECHNIQUE: Multiple grayscale and Doppler ultrasound images of the kidneys were obtained. COMPARISON: 11/02/2020 FINDINGS: The examination is significantly limited by the patient's body habitus. The right kidney measures 10.7 x 5.8 x 6.7 cm. The left kidney measures 10.8 x 7.1 x 7.4 cm. The kidneys demonstrate n ormal parenchymal echogenicity. There is no hydronephrosis. The bladder is decompressed by Abarca cath eter. IMPRESSION: 1. Grossly normal kidneys without hydronephrosis, examination limited by body habitus. Reviewed, dictated and finalized at location A. IMPRESSION: 1. Grossly normal kidneys without hydronephrosis, examination limited by body h abitus.
--- NOTE | ~2020-11-15 | XR_ITS ---
XR chest 1V portable DATE: 11/15/2020 23:07 INDICATION: Shortness of breath, fever TECHNIQUE: AP chest on 11/11/2020 at 2303 hours COMPARISON: 11/11/2020 portable AP chest at 0745/0746 hours FINDINGS: Heart size is not optimally evaluated on AP projection because of magnification. There is pulmonary vascular congestion and redistribution. There are bilateral pulmonary infiltrates and/or atelectasis. Consider bilateral pneumonia, pulmonary edema. IMPRESSION: Pulmonary vascular congestion and bilateral pulmonary infiltrates; consider pneumonia and /or pulmonary edema Reviewed, dictated and finalized at location A. IMPRESSION: Pulmonary vascular congestion and bilateral pulmonary infiltrates; consider pneumonia and/or pulmonary edema
--- NOTE | ~2020-11-15 | CT_ITS ---
EXAMINATION: CT brain wo con DATE: 11/18/2020 10:41 INDICATION: Confusion TECHNIQUE: Computed tomography (CT) of the head was performed without intravenous contrast. The dose- length product was 681.00 mGy-cm. Automated exposure control and iterative reconstruction technique w ere employed. COMPARISON: CT dated 11/01/2020 FINDINGS: Generalized atrophy. There are scattered mild periventricular and subcortical white matter changes, most likely related to small vessel ischemic disease (microangiopathy). No acute intracrania l hemorrhage, infarction, mass or mass effect. Paranasal sinuses and mastoids are pneumatized. No dep ressed skull fractures. IMPRESSION: 1. No acute intracranial abnormality. 2: Chronic age-related findings. Reviewed, dictated and finalized at location A.
--- NOTE | ~2020-11-15 | XR_ITS ---
XR abdomen/kub 1V 11/19/2020 15:01 Indication: Abdominal pain Procedure: KUB Comparison: 11/04/2020 Findings: Nonobstructive bowel gas pattern. Moderate gastric distention. Lung bases unremarkable. The re is diffuse idiopathic skeletal hyperostosis (DISH) of the lumbar spine. No abnormal calcifications . No acute osseous abnormality. Impression: 1: Nonobstructive bowel gas pattern. Reviewed, dictated and finalized at location A. Impression: 1: Nonobstructive bowel gas pattern.
[2020-11-15 21:51] VITALS: BP 207/100; PULSE 136; RESP 42; TEMP 38.8; O2SAT 95
--- NOTE | 2020-11-15 22:09 | ECG_ITS ---
Measurements Intervals [place] Rate: 125 P: RI: 0 QRS: -4 QRSD: 78 T: 96 QT: 281 QTc: 406 Interpretive Statements ATRIAL FIBRILLATION WITH RAPID VENTRICULAR RESPONSE VENTRICULAR PREMATURE COMPLEX LOW QRS VOLTAGE- DIFFUSE LEADS CANNOT RULE OUT SEPTAL INFARCT, AGE INDETERMINATE BORDERLINE ST-T WAVE ABNORMALITY- HIGH LATERAL LEADS BASELINE ARTIFACT- II, III, AVR, AVL, AVF, V1, V3-V6 ABNORMAL ECG Electronically Signed On 11-16-2020 6:43:22 CDT by Jayjay Barnes D.O.
[2020-11-15 22:23] LABS: Basophils Percent Auto 0.3 % (0.2-1.2); Eosinophils Percent Auto 0.1 % (0-4.4); Hematocrit 35.5 % (42.0-52.0); Hemoglobin 11.1 g/dL (14.0-18.0); Immature Granulocyte Absolute 0.11 K/mm3 (0.00-0.031); Immature Granulocyte Percent A 0.8 % (0-0.5); Lymphocytes Absolute Auto 0.95 K/mm3 (0.9-3.2); Lymphocytes Percent Auto 6.9 % (18.3-44.2); Mean Corpuscular HGB Conc 31.3 g/dl (32-36); Mean Corpuscular Hemoglobin 26.9 pg (26-34); Mean Corpuscular Volume 86.2 fl (80-100); Mean Platelet Volume 9.1 fl (7.4-10.4); Monocytes Absolute Auto 0.9 K/mm3 (0.1-0.6); Monocytes Percent Auto 6.8 % (2.6-8.5); Neutrophils Absolute Auto 11.7 K/mm3 (1.3-6.7); Neutrophils Percent Auto 85.1 % (45.5-73.1); Platelet Count Result 229 k/mm3 (150-375); Red Blood Count 4.12 M/mm3 (4.6-6.20); Red Cell Distribution Width 16.9 % (11.5-14.5); White Blood Count 13.8 K/mm3 (4.5-10.0)
[2020-11-15 22:33] LABS: INR 1.4; Lactic Acid Reflex 1.2 mmol/L (0.7-2.1); Prothrombin Time 16.5 Seconds (11.1-14.7)
[2020-11-15 22:34] LABS: Alanine Aminotransferase 28 U/L (4-50); Albumin Level 3.5 g/dL (3.5-5.1); Alkaline Phosphatase 57 U/L (38-126); Anion Gap 10 mmol/L (8-16); Aspartate Amino Transferase 29 U/L (17-59); Bilirubin,Total 0.8 mg/dL (0.2-1.3); Blood Urea Nitrogen 19 mg/dL (9-20); Calcium 8.7 mg/dL (8.4-10.2); Carbon Dioxide 23 mmol/L (22-30); Chloride 103 mmol/L (98-107); Estimated Glomerular Filt Rate > 60; Glucose 300 mg/dL (65-110); Partial Thromboplastin Time 28.9 SECONDS (22.3-36.8); Potassium 5.5 mmol/L (3.4-5.0); Sodium 136 mmol/L (137-145)
[2020-11-15 22:35] LABS: Alveolar/Arterial O2 Gradient 152.5 mmHg; Base Excess ABG 0.6 mEq/l (+/-2.0); Carboxyhemoglobin 0.3 % THb (0-2.0); Fractional Inspired Oxygen 40 %; Methemoglobin ABG 0.2 %THb (0-1.5); Modified Allen's Test Pass; Oxygen Content ABG 16.5 %vol (16.0-22.0); Oxyhemoglobin 96.3 % THb (90.0-100.0); PCO2 ABG 30.2 mmHg (35.0-45.0); PO2 FiO2 Ratio Arterial Blood 2.45 %; Reduced Hemoglobin 3.2 %THb (0-5.0); Site Drawn RIGHT RADIAL; Total Hemoglobin 12.1 g/dL (12.0-18.0)
[2020-11-15 22:36] LABS: Device NASAL CANNULA
[2020-11-15 22:48] LABS: NT Pro B Type Natriuretic Pept 3200 pg/mL (5-100)
[2020-11-15 23:17] VITALS: BP 173/103; PULSE 121; RESP 53; O2SAT 99
[2020-11-15 23:18] VITALS: PULSE 128; RESP 49; O2SAT 99
[2020-11-15 23:20] VITALS: BP 120/68; PULSE 135; RESP 47; O2SAT 99
[2020-11-15] MEDS: SODIUM CHLORIDE 0.9% IV 1,000 ML 999 ML IV CONT ×2 (23:21→23:38)
--- NOTE | 2020-11-15 23:23 | ED.FEVER ---
HPI - Fever General Chief Complaint: Fever Stated Complaint: pneumonia/afib Time Seen by Provider: 11/15/20 22:19 Source: EMS and RN notes reviewed Mode of arrival: EMS Limitations: clinical condition History of Present Illness HPI Narrative: Patient is 60 years old white male brought to the emergency room from retirement with a chief complaint of fever and shortness of breath. Patient was discharged from our facility yesterday with a diagnosis of septic shock, unspecified organism could be related to see differential colitis, acute respiratory failure, acute renal failure superimposed on stage III chronic kidney disease, A. fib, morbid obesity, diabetes with hyperglycemia, amputation stump necrosis Related Data Home Medications Medication Instructions Recorded Confirmed apixaban 5 mg tablet 5 mg PO BID 05/14/19 10/31/20 carvedilol phosphate 80 mg 40 mg PO DAILY 05/14/19 10/31/20 capsule,[id number] multiphase digoxin 250 mcg (0.25 mg) tablet 125 mcg PO DAILY 05/14/19 10/31/20 insulin regular hum U-500 conc See Rx Instructions .ROUTE .COMPLEX 05/14/19 10/31/20 Livalo 4 mg PO DAILY 08/12/19 10/31/20 losartan 50 mg PO DAILY 08/12/19 10/31/20 spironolactone 25 mg PO DAILY 08/12/19 10/31/20 torsemide 20 mg PO QAM 08/12/19 10/31/20 potassium chloride 20 mEq 60 meq PO DAILY tablet 07/31/20 10/31/20 tablet,extended release(part/cryst) pregabalin 100 mg capsule 100 mg PO TID 07/31/20 10/31/20 Toujeo SoloStar U-300 Insulin 180 unit SUBCUT DAILY 08/28/20 10/31/20 Allergies Allergy/AdvReac Type Severity Reaction Status Date / Time meperidine AdvReac Mild Nausea Verified 11/15/20 22:07 Review of Systems Review of Systems: ROS unobtainable: Yes unobtainable due to medical condition PMFSH Past Medical History Medical History Acute renal failure superimposed on stage 3 chronic kidney disease The patient had temporary dialysis x3 at 1 time Acute worsening of stage 3 chronic kidney disease Atrial fibrillation On chronic anticoagulation with Eliquis C. difficile colitis Chronic kidney disease, stage 3 Diabetes mellitus type 2 in obese Diabetic nephropathy Hands Diastolic dysfunction Last echocardiogram March 2018 demonstrated normal EF of 65-70 with moderate LVH and severe left atrial enlargement GI bleed HTN (hypertension), malignant Hyperlipidemia Metabolic acidosis Morbid obesity Obstructive sleep apnea treated with BiPAP patient is noncompliant with his BiPAP Peripheral vascular disease Surgical History Surgical History History of appendectomy History of bilateral carpal tunnel release History of left above knee amputation History of right below knee amputation History of tonsillectomy and adenoidectomy Family History Family History Sibling Lung cancer Sister Hypertension Brain cancer Father Diabetes mellitus Coronary artery disease Hypertension Mother Acute myocardial infarction Other Family history of arthritis Social History Social History Social History: The patient lives with the brother who is an over the road owner operator tanker truck driver who is rarely home. the patient is disabled. Primary care physician: Dr. Beltran Reyes Code status: Full code Smoking status: Never smoker Alcohol intake: never Drinks per week: 1 Alcohol use details: The patient only uses minimal alcohol on occasion. Substance use: never Additional living arrangements comments: He owns his own house but his brother lives with him and helps him when needed. 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 He is on disability due to his peripheral vascular disease and bilateral lower extremity amputations. Gender identity (if
[2020-11-15] MEDS: dilTIAZem HCl INJ 25 MG/5 ML VIAL 10 MG IV PUSH (23:57)
[2020-11-15] MEDS: MORPHINE SULFATE (*CRX) 4 MG/ML INJ IV PUSH (23:57)
[2020-11-16] VITALS (24 sets, daily range): BP systolic 119–182; BP diastolic 39–77; PULSE 74–112; RESP 16–49; TEMP 36.6–40; O2SAT 95–100
--- NOTE | 2020-11-16 00:09 | PCRCNOTE ---
Pt set up on high flow oxygen at 60 lpm and 40%.
--- NOTE | 2020-11-16 01:13 | ADMGEN ---
This patient, Lester Nguyễn, was admitted to Intensive Care Unit-6. Patient/family oriented to hospital policies and general routines including ID bracelet, bed and alarms, visiting hours, pain management, procedures, bathroom and other care routines, personal items, smoking policy, room service/diet, and visiting hours. Information on how to activate the Rapid Response Team has been discussed. Patient/Family are encouraged to report perceived risks to care and to ask questions if they do not understand what they are told or what they should do.
--- NOTE | 2020-11-16 04:03 | PM.IMHP ---
H&P: HPI History of Present Illness Date/Time: 11/16/20 01:35 Chief Complaint: sent in from custodial for fever Narrative: 60-year-old male with extensive past medical history including diabetes, CHF, atrial fibrillation on chronic anticoagulation, super morbid obesity, obstructive sleep apnea, chronic respiratory failure, and C diff colitis who presented to the ER from [facility] via EMS due to fever. The patient had been hospitalized 11/01/2020 through 11/14/2020 due to acute respiratory failure requiring intubation, septic shock with multiple possible sources including C diff, chronic wound to right leg stump and or unstageable decubitus ulcer to the buttocks. The patient was treated with 14 days of Dificid and discharged on vancomycin would titrating doses per ID recommendations. Patient returned little over 24 hours after discharge due to fevers. The patient is encephalopathic at this time. He can tell me his name and date of and that he he is at [facility] but cannot tell me the month or the year. When asked what date it is he repeatedly states his date of . At the time of my evaluation the patient's temperature was up to 104. Nursing staff informed me that the patient's buttock wound has a foul odor to it. nursing staff reports patient had a smear of incontinent stool. Review of Systems Review of Systems: ROS unobtainable: Yes unobtainable due to mental status PMFSH Past Medical History Medical History (Updated 11/16/20 @ 05:44 by Marielle Moore DO) Atrial fibrillation On chronic anticoagulation with Eliquis C. difficile colitis Chronic kidney disease, stage 3 With history of temporary dialysis in the past. Decubital ulcer Diabetes mellitus type 2 in obese Diabetic nephropathy Hands Diastolic dysfunction Last echocardiogram March 2018 demonstrated normal EF of 65-70 with moderate LVH and severe left atrial enlargement GI bleed HTN (hypertension), malignant Hyperlipidemia Metabolic acidosis Morbid obesity Obstructive sleep apnea treated with BiPAP patient is noncompliant with his BiPAP Peripheral vascular disease Surgical History Surgical History History of appendectomy History of bilateral carpal tunnel release History of left above knee amputation History of right below knee amputation History of tonsillectomy and adenoidectomy Family History Family History Sibling Lung cancer Sister Hypertension Brain cancer Father Diabetes mellitus Coronary artery disease Hypertension Mother Acute myocardial infarction Other Family history of arthritis Social History Social History (Updated 11/16/20 @ 05:06 by Marielle Moore DO) Social History: The patient lived with the brother who is an over the road diesel truck driver who is rarely home. after his most recent ( 11/14/2020) he was discharged to [facility]. Primary care physician: Dr. Beltran Reyes Code status: Full code Smoking status: Never smoker Alcohol intake: never Drinks per week: 1 Alcohol use details: The patient only uses minimal alcohol on occasion. Substance use: never Additional living arrangements comments: He owns his own house but his brother lives with him and helps him when needed. However his brother is an [id number] diesel truck driver and is rarely home. 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 He is on disability due to his peripheral vascular disease and bilateral lower extremity amputations. Gender identity (if verbalized by the patient): Male Spiritual care concerns: No Agree to blood products: Yes Meds Home Medications and Allergies Home Medications Medication Instructions Recorded Confirmed Type apixaban 5 mg tablet 5 mg PO BID 01
[2020-11-16 05:02] LABS: Hematocrit 32.2 % (42.0-52.0); Mean Corpuscular HGB Conc 31.1 g/dl (32-36); Mean Corpuscular Hemoglobin 26.8 pg (26-34); Mean Corpuscular Volume 86.3 fl (80-100); Mean Platelet Volume 9.7 fl (7.4-10.4); Platelet Count Result 187 k/mm3 (150-375); Red Blood Count 3.73 M/mm3 (4.6-6.20); White Blood Count 13.6 K/mm3 (4.5-10.0)
[2020-11-16] MEDS: SODIUM CHLORIDE 0.9% IV 1,000 ML 100 ML IV CONT (05:18)
[2020-11-16 05:35] LABS: Troponin I 0.079 ng/mL (0.000-0.034)
[2020-11-16 05:36] LABS: Alanine Aminotransferase 25 U/L (4-50); Alkaline Phosphatase 36 U/L (38-126); Anion Gap 11 mmol/L (8-16); Aspartate Amino Transferase 34 U/L (17-59); Bilirubin,Total 0.8 mg/dL (0.2-1.3); Blood Urea Nitrogen 24 mg/dL (9-20); Calcium 8.3 mg/dL (8.4-10.2); Carbon Dioxide 19 mmol/L (22-30); Chloride 107 mmol/L (98-107); Estimated Glomerular Filt Rate > 60; Glucose 338 mg/dL (65-110); Sodium 137 mmol/L (137-145)
[2020-11-16 05:45] LABS: Base Excess ABG -2.1 mEq/l (+/-2.0); Carboxyhemoglobin 0.2 % THb (0-2.0); Fractional Inspired Oxygen 36 %; HCO3 ABG 20.9 mEq/l (22.0-26.0); Methemoglobin ABG 0.4 %THb (0-1.5); Oxygen Content ABG 14.6 %vol (16.0-22.0); Oxygen Saturation ABG 98.4 % (95.0-100.0); Oxyhemoglobin 96.5 % THb (90.0-100.0); PCO2 ABG 29.8 mmHg (35.0-45.0); PO2 ABG 113.1 mmHg (80.0-100.0); PO2 FiO2 Ratio Arterial Blood 3.14 %; Reduced Hemoglobin 2.9 %THb (0-5.0); Total Hemoglobin 10.6 g/dL (12.0-18.0); pH ABG 7.463 (7.350-7.450)
[2020-11-16 05:48] LABS: Modified Allen's Test Pass; Site Drawn RIGHT RADIAL
[2020-11-16 05:49] LABS: Device HIGH FLOW THERAPY
[2020-11-16] MEDS: ALBUTEROL SULFATE NEB 2.5 MG/3 ML INH 15 MG INHALATION (06:19)
[2020-11-16] MEDS: SODIUM BICARBONATE 8.4% 50 MEQ/50 ML SYRINGE IV PUSH (06:38)
[2020-11-16] MEDS: INSULIN HUMAN REGULAR (*BKC) 100 UNITS/ML 10 UNITS IV PUSH (06:39)
[2020-11-16] MEDS: CALCIUM GLUCONATE 1,000 MG/10 ML VIAL 1000 MG IV PUSH (06:41)
[2020-11-16] MEDS: VANCOMYCIN ORAL 125 MG/2.5 ML SYRUP PO ×3 (06:48→18:45)
[2020-11-16] MEDS: SODIUM POLYSTYRENE SULFONONATE 15 GM/60 ML BTL 30 GM RECTAL (06:48)
[2020-11-16 07:51] LABS: Glucose Point of Care 332 mg/dl (65-105)
[2020-11-16] MEDS: LOSARTAN POTASSIUM 50 MG TABLET PO (08:36)
[2020-11-16] MEDS: APIXABAN 5 MG TABLET PO ×2 (08:36→18:46)
[2020-11-16] MEDS: INSULIN GLARGINE (*BKC) 100 UNITS/ML 144 UNITS SUB-Q (08:37)
[2020-11-16] MEDS: PREGABALIN (*CRX) 50 MG CAPSULE 100 MG PO ×3 (08:50→18:48)
--- NOTE | 2020-11-16 11:21 | PM.CNGS ---
Assessment and Plan Assessment and plan (1) Decubital ulcer: Qualifiers: Pressure injury location: buttock Pressure injury stage: unstageable Laterality: unspecified laterality Qualified Code(s): L89.300 - Pressure ulcer of unspecified buttock, unstageable Code(s): L89.90 - Pressure ulcer of unspecified site, unspecified stage Status: Acute Assessment and Plan: Patient has dry intact eschar on buttocks and sacral ulcers. Surgical debridement of these ulcers could potentially make wound care more difficult given his severe morbid obesity and difficulty with frequent wound care. Opening these wounds could potentially introduce more risk of infection and healing time would be near indefinite. The surrounding skin does not appear erythematous. He is too large to undergo further imaging to assess for deeper tissue injury or osteomyelitis. Will ask wound care nurses to assess wounds tomorrow and offer any further recommendations. If no other source of infection is identified and patient is not improving, could consider surgical debridement given increased risks. (2) Amputation stump necrosis: Code(s): T87.50 - Necrosis of amputation stump, unspecified extremity Status: Acute Assessment and Plan: Right BKA stump does have necrotic eschar with scant drainage. Could consider bedside debridement if no signs of improvement are noted. Given the patient's comorbidities, I would like to try to avoid procedure under any form of anesthesia. (3) Sepsis: Qualifiers: Sepsis type: sepsis due to unspecified organism Sepsis acute organ dysfunction status: with acute organ dysfunction Severe sepsis acute organ dysfunction type: encephalopathy Severe sepsis shock status: without septic shock Qualified Code(s): A41.9 - Sepsis, unspecified organism; R65.20 - Severe sepsis without septic shock; G93.40 - Encephalopathy, unspecified Code(s): A41.9 - Sepsis, unspecified organism Status: Acute (4) Atrial fibrillation with rapid ventricular response: Code(s): I48.91 - Unspecified atrial fibrillation Status: Acute (5) Obesity, morbid, BMI 50 or higher: Code(s): E66.01 - Morbid (severe) obesity due to excess calories Status: Acute History of Present Illness Consult details Consult date: 11/16/20 Reason for consult: wound care Requesting physician: Marielle Moore DO Narrative: This is a 60-year-old man who was admitted overnight from the ED after being discharged yesterday from the hospital to residential facility. He was recently hospitalized for septic shock related to colitis. He has multiple prior episodes of C diff colitis. While he was in critical condition in the ICU and on multiple pressors he developed buttock and sacral decubitus ulcers as well as stump necrosis on his right below-knee amputation stump. The wounds appear dry and intact with eschars, therefore only local wound care was performed. He was discharged yesterday but was noted to develop fevers at the residential facility and was returned to the ED by EMS. He is currently in the ICU but is hemodynamically stable and going to be transferred to IMU. He has been fever I will since admission. He is currently on Zosyn IV and oral vancomycin. Review of Systems Review of Systems: All systems reviewed & are unremarkable except as noted in HPI and below Constitutional: Constitutional: Denies chills and Reports fever(s) Cardiovascular: Cardiovascular: Denies chest pain and Denies dyspnea Respiratory: Respiratory: Denies cough and Denies dyspnea Gastrointestinal: Gastrointestinal: Denies abdominal pain, Denies nausea and Denies vomiting Integumentary/Breasts: Skin/Breast: Reports as per HPI [facility] Past Medical History Medical History Atrial fibrillation On chronic anticoagulation with Eliquis C. difficile colitis Chronic kid
[2020-11-16] MEDS: INSULIN ASPART (*BKC) 100 UNITS/ML SUB-Q ×2 (12:19→18:43)
[2020-11-16 13:05] LABS: Anion Gap 4 mmol/L (8-16); Blood Urea Nitrogen 21 mg/dL (9-20); Calcium 7.9 mg/dL (8.4-10.2); Carbon Dioxide 27 mmol/L (22-30); Chloride 106 mmol/L (98-107); Estimated Glomerular Filt Rate > 60; Glucose 275 mg/dL (65-110); Sodium 137 mmol/L (137-145)
[2020-11-16 13:54] LABS: Glucose Point of Care 280 mg/dl (65-105)
--- NOTE | 2020-11-16 14:29 | PC.NURSE ---
This patient, Lester Nguyễn, was transferred to [facility] on 11/16/20 at 1405. Personal belongings sent with patient. Report given to Guadalupe MUIR. Appropriate documentation sent with patient.
--- NOTE | 2020-11-16 14:48 | WPDCNINT ---
Assessment and Plan Assessment and plan (1) Sepsis: Qualifiers: Sepsis type: sepsis due to unspecified organism Sepsis acute organ dysfunction status: with acute organ dysfunction Severe sepsis acute organ dysfunction type: encephalopathy Severe sepsis shock status: without septic shock Qualified Code(s): A41.9 - Sepsis, unspecified organism; R65.20 - Severe sepsis without septic shock; G93.40 - Encephalopathy, unspecified Code(s): A41.9 - Sepsis, unspecified organism Status: Acute Assessment and Plan: patient presented with fevers, shortness of breath, leukocytosis, hyperglycemia - sepsis likely related to possible decubital ulcer and/or right stump necrosis - patient started on Zosyn and vancomycin IV - patient has been recently admitted to [facility] for C diff colitis and was discharged on 11/14/2020 to [facility]. Patient was sent on p.o. vancomycin per infectious disease (2) Decubital ulcer: Qualifiers: Pressure injury location: buttock Pressure injury stage: unstageable Laterality: unspecified laterality Qualified Code(s): L89.300 - Pressure ulcer of unspecified buttock, unstageable Code(s): L89.90 - Pressure ulcer of unspecified site, unspecified stage Status: Acute Assessment and Plan: surgery has been consulted and appreciate the evaluation and recommendation - patient had an dry intact eschar on buttocks and sacral ulcers - will have wound care evaluate the patient - according to the surgeon opening these wounds could potentially increase more risk of infection and healing time would be nearly indefinite. - If wound care recommends debridement and surgery may consider. (3) Acute hyperkalemia: Code(s): E87.5 - Hyperkalemia Status: Acute Assessment and Plan: Acute hyperkalemia on admission, potassium of 6.0, was treated with insulin and D50, calcium, Kayexalate and bicarb - repeat potassium is 5.0 - continue to monitor (4) Obesity, morbid, BMI 50 or higher: Code(s): E66.01 - Morbid (severe) obesity due to excess calories Status: Acute Assessment and Plan: chronic obesity (5) Fever: Qualifiers: Fever type: unspecified Qualified Code(s): R50.9 - Fever, unspecified Code(s): R50.9 - Fever, unspecified Status: Acute Assessment and Plan: fevers, continue Tylenol, likely related to infection, treat underlying cause (6) Atrial fibrillation with rapid ventricular response: Code(s): I48.91 - Unspecified atrial fibrillation Status: Acute Assessment and Plan: atrial fibrillation, rate controlled, continue Coreg, and digoxin - patient is on apixaban (7) Amputation stump necrosis: Code(s): T87.50 - Necrosis of amputation stump, unspecified extremity Status: Acute Assessment and Plan: appreciate surgery evaluation, they may consider bedside debridement if no signs of improvement on noted. Additional Plan Discussed with patient updated him with his condition and plan of care. Code status: Full code Critical care time spent: 49 minutes discussed with surgeon This dictation may have been done utilizing a voice recognition system. Attempts have been made to correct errors. However, there may be uncorrected grammatical, spelling, and recognition errors present. Due to a high probability of clinically significant, life threatening deterioration, the patient required my highest level of preparedness to intervene emergently and I personally spent this critical care time directly and personally managing the patient. This critical care time included obtaining a history; examining the patient; pulse oximetry; ordering and review of studies; arranging urgent treatment with development of a management plan; evaluation of patient's response to treatment; frequent reassessment; and discussions with other providers. It was exclus
--- NOTE | 2020-11-16 15:30 | PM.IMPN ---
Progress Note: A&P Assessment and Plan (1) Sepsis: Qualifiers: Sepsis type: sepsis due to unspecified organism Sepsis acute organ dysfunction status: with acute organ dysfunction Severe sepsis acute organ dysfunction type: encephalopathy Severe sepsis shock status: without septic shock Qualified Code(s): A41.9 - Sepsis, unspecified organism; R65.20 - Severe sepsis without septic shock; G93.40 - Encephalopathy, unspecified Code(s): A41.9 - Sepsis, unspecified organism Status: Acute Assessment and Plan: continue broad-spectrum antibiotic awaiting cultures patient presented with fevers, shortness of breath, leukocytosis, hyperglycemia - sepsis likely related to possible decubital ulcer and/or right stump necrosis - patient started on Zosyn and vancomycin IV - patient has been recently admitted to [facility] for C diff colitis and was discharged on 11/14/2020 to [facility]. Patient was sent on p.o. vancomycin per infectious disease (2) Decubital ulcer: Qualifiers: Pressure injury location: buttock Pressure injury stage: unstageable Laterality: unspecified laterality Qualified Code(s): L89.300 - Pressure ulcer of unspecified buttock, unstageable Code(s): L89.90 - Pressure ulcer of unspecified site, unspecified stage Status: Acute Assessment and Plan: appreciate surgery note will obtain wound care consult surgery has been consulted and appreciate the evaluation and recommendation - patient had an dry intact eschar on buttocks and sacral ulcers - will have wound care evaluate the patient - according to the surgeon opening these wounds could potentially increase more risk of infection and healing time would be nearly indefinite. - If wound care recommends debridement and surgery may consider. (3) Acute hyperkalemia: Code(s): E87.5 - Hyperkalemia Status: Acute Assessment and Plan: resolved Acute hyperkalemia on admission, potassium of 6.0, was treated with insulin and D50, calcium, Kayexalate and bicarb - repeat potassium is 5.0 - continue to monitor (4) Obesity, morbid, BMI 50 or higher: Code(s): E66.01 - Morbid (severe) obesity due to excess calories Status: Acute Assessment and Plan: 1800 calorie restricted diet (5) Fever: Qualifiers: Fever type: unspecified Qualified Code(s): R50.9 - Fever, unspecified Code(s): R50.9 - Fever, unspecified Status: Acute Assessment and Plan: continue to monitor temperature curve fevers, continue Tylenol, likely related to infection, treat underlying cause (6) Atrial fibrillation with rapid ventricular response: Code(s): I48.91 - Unspecified atrial fibrillation Status: Acute Assessment and Plan: atrial fibrillation, rate controlled, continue Coreg, and digoxin - patient is on apixaban (7) Amputation stump necrosis: Code(s): T87.50 - Necrosis of amputation stump, unspecified extremity Status: Acute Assessment and Plan: follow surgery recommendations local care Additional Plan Discussed with patient updated him with his condition and plan of care. Code status: Full code Critical care time spent: 49 minutes discussed with surgeon This dictation may have been done utilizing a voice recognition system. Attempts have been made to correct errors. However, there may be uncorrected grammatical, spelling, and recognition errors present. Due to a high probability of clinically significant, life threatening deterioration, the patient required my highest level of preparedness to intervene emergently and I personally spent this critical care time directly and personally managing the patient. This critical care time included obtaining a history; examining the patient; pulse oximetry; ordering and review of studies; arranging urgent treatment with development of a management plan; e
[2020-11-16 17:14] LABS: Glucose Point of Care 212 mg/dl (65-105)
[2020-11-17] VITALS (16 sets, daily range): BP systolic 113–142; BP diastolic 43–68; PULSE 71–85; RESP 16–24; TEMP 36.4–37.6; O2SAT 95–100; BMI 88.6
[2020-11-17] MEDS: VANCOMYCIN ORAL 125 MG/2.5 ML SYRUP PO ×5 (00:10→23:51)
[2020-11-17 04:14] LABS: Glucose Point of Care 151 mg/dl (65-105)
[2020-11-17] MEDS: CENTRAL LINE FLUSH 10 ML IV PUSH ×3 (05:49→22:00)
[2020-11-17] MEDS: PREGABALIN (*CRX) 50 MG CAPSULE 100 MG PO ×3 (10:10→18:44)
[2020-11-17] MEDS: APIXABAN 5 MG TABLET PO ×2 (10:11→18:44)
[2020-11-17] MEDS: LOSARTAN POTASSIUM 50 MG TABLET PO (10:11)
[2020-11-17] MEDS: INSULIN GLARGINE (*BKC) 100 UNITS/ML 144 UNITS SUB-Q (10:13)
[2020-11-17 10:29] LABS: Glucose Point of Care 172 mg/dl (65-105)
[2020-11-17 11:35] LABS: Glucose Point of Care 135 mg/dl (65-105)
--- NOTE | 2020-11-17 11:39 | PM.PNGS ---
Progress Note: A&P Assessment and Plan (1) Amputation stump necrosis: Code(s): T87.50 - Necrosis of amputation stump, unspecified extremity Status: Acute Assessment and Plan: I evaluated and discussed the wounds with wound care nurses. Patient has multiple risk factors that would make debridement of these wounds higher risk than leaving eschar intact. Wounds actually look stable or somewhat better compared to when he was last evaluated before being discharged last week. Will continue local wound care for now and monitor wounds. If signs of infection and sepsis are not improving, then would consider local bedside debridement as a last resort. Fecal and urinary incontinence will make wound care extremely difficult especially with patient has limited mobility. (2) Decubital ulcer: Qualifiers: Pressure injury location: buttock Pressure injury stage: unstageable Laterality: unspecified laterality Qualified Code(s): L89.300 - Pressure ulcer of unspecified buttock, unstageable Code(s): L89.90 - Pressure ulcer of unspecified site, unspecified stage Status: Acute (3) Sepsis: Qualifiers: Sepsis type: sepsis due to unspecified organism Sepsis acute organ dysfunction status: with acute organ dysfunction Severe sepsis acute organ dysfunction type: encephalopathy Severe sepsis shock status: without septic shock Qualified Code(s): A41.9 - Sepsis, unspecified organism; R65.20 - Severe sepsis without septic shock; G93.40 - Encephalopathy, unspecified Code(s): A41.9 - Sepsis, unspecified organism Status: Acute (4) Obesity, morbid, BMI 50 or higher: Code(s): E66.01 - Morbid (severe) obesity due to excess calories Status: Acute Subjective Subjective Date/Time Seen: 11/17/20 11:39 Interval history: Patient now in IMU and remains afebrile currently. No new complaints with wounds. Exam Skin: Other: Large bilateral buttocks and sacral unstageable decubitus ulcers with intact dry eschar. Couple areas where eschar is showing some slight breakdown. No surrounding erythema or crepitus. Right BKA stump with intact eschar and no surrounding erythema or crepitus Objective Data Vital Signs Vital Signs: Vital Signs - 24 hr 11/16/20 12:00 11/16/20 14:00 11/16/20 16:00 Temperature 39.3 C H 36.7 C Pulse Rate 81 77 74 Respiratory Rate 38 H 24 H Blood Pressure 137/58 L 119/44 L Pulse Oximetry 99 98 11/16/20 18:00 11/16/20 20:00 11/16/20 22:00 Temperature 36.6 C Pulse Rate 74 79 74 Respiratory Rate 20 Blood Pressure 128/47 L Pulse Oximetry 98 11/17/20 00:00 11/17/20 02:00 11/17/20 04:00 Temperature 36.6 C 36.4 C L Pulse Rate 73 71 85 Respiratory Rate 20 24 H Blood Pressure 134/68 113/68 Pulse Oximetry 96 100 11/17/20 06:00 11/17/20 08:00 11/17/20 10:10 Temperature 37.6 C Pulse Rate 75 79 79 Respiratory Rate 22 H Blood Pressure 142/63 H Pulse Oximetry 100 Intake/Output Intake/Output: Intake & Output 11/14/20 11/15/20 11/16/20 11/17/20 23:59 23:59 23:59 23:59 Intake Total 3771 1665 Output Total 2275 550 Balance 1496 1115 Meds/Results Medications: Active Medications Generic Name Dose Route Start Last Admin Trade Name Freq PRN Reason Stop Dose Admin Apixaban 5 mg 11/16/20 09:00 11/17/20 10:11 Apixaban 5 Mg Tablet PO 5 mg BID FAROOQ Administration Carvedilol 40 mg 11/16/20 09:00 11/17/20 10:10 Carvedilol Cr 10 Mg Capsule PO 12/16/20 09:01 40 mg DAILY FAROOQ Administration Dextrose 12.5 gm 11/16/20 10:55 Dextrose 50% 25 Gm/50 Ml Syringe IV PUSH PRN PRN Hypoglycemia Protocol Glucagon 1 mg 11/16/20 10:55 Glucagon For Inj 1 Mg Vial IM PRN PRN Hypoglycemia Protocol Glucose 15 gm 11/16/20 10:55 Glucose Oral Gel 15 Gm Of Glucse In 37.5 Gm Tube PO PRN PRN Hypoglycemia Protocol Piperacillin/Tazobactam/Dextrose 3.37
[2020-11-17 11:52] LABS: Glucose Point of Care 179 mg/dl (65-105)
--- NOTE | 2020-11-17 11:58 | PM.IMPN ---
Progress Note: A&P Assessment and Plan (1) Sepsis: Qualifiers: Sepsis acute organ dysfunction status: with acute organ dysfunction Sepsis type: sepsis due to unspecified organism Severe sepsis acute organ dysfunction type: encephalopathy Severe sepsis shock status: without septic shock Qualified Code(s): A41.9 - Sepsis, unspecified organism; R65.20 - Severe sepsis without septic shock; G93.40 - Encephalopathy, unspecified Code(s): A41.9 - Sepsis, unspecified organism Status: Acute Assessment and Plan: Patient presents with fevers, shortness of breath, tachycardia, encephalopathy, leukocytosis, and hyperglycemia. BCx now positive (1of2) for gram positive cocci in clusters in aerobic bottle. Source of septicemia more likely related to possible decubital ulcer and/or right stump necrosis. Doubt CDiff playing a part here. Patient started on Zosyn and vancomycin IV. Continue oral Vanco per tapering dose schedule. UCx growing Simran albicans 50-100K but felt to be more of a colonization or contaminant. (2) Acute hyperkalemia: Code(s): E87.5 - Hyperkalemia Status: Acute Assessment and Plan: Potassium 5.5 on admission and climbed to 6.0 requiring treatment. Repeat potassium was 5.0. Repeat today (3) Metabolic encephalopathy: Code(s): G93.41 - Metabolic encephalopathy Status: Acute Assessment and Plan: Mental status waxes and wanes. More alert today but still confused at times. Suspect related to the sepsis picture. Check CT brain to exclude new findings. (4) Decubital ulcer: Qualifiers: Laterality: unspecified laterality Pressure injury location: buttock Pressure injury stage: unstageable Qualified Code(s): L89.300 - Pressure ulcer of unspecified buttock, unstageable Code(s): L89.90 - Pressure ulcer of unspecified site, unspecified stage Status: Acute Assessment and Plan: Patient has an dry intact eschar on buttocks and sacral ulcers. Most likely the source of the fevers and sepsis picture. BCx positive. Surgery has been consulted and appreciate their evaluation and recommendation. Wound care consult also obtained. According to the surgeon, opening these wounds could potentially increase more risk of infection and healing time would be nearly indefinite. Continue specialty mattress for pressure relief. Contineu wound care and abx (5) Amputation stump necrosis: Code(s): T87.50 - Necrosis of amputation stump, unspecified extremity Status: Acute Assessment and Plan: Possibly the source of the fever. Continue to follow surgery and wound care recommendations. Continue abx. (6) Fever: Qualifiers: Fever type: unspecified Qualified Code(s): R50.9 - Fever, unspecified Code(s): R50.9 - Fever, unspecified Status: Acute Assessment and Plan: Related to the septic picture. Add Tylenol prn (7) Bilateral arm weakness: Code(s): R29.898 - Other symptoms and signs involving the musculoskeletal system Status: Acute Assessment and Plan: Patient unable to move bilateral UE. MRI C-spine done 11/10 showing cervical spondylosis and mild spinal stenosis at C5-C6 and moderate spinal stenosis at C6-C7 secondary to bulging disc but with motion artifact. Neuro consult. (8) Atrial fibrillation with rapid ventricular response: Code(s): I48.91 - Unspecified atrial fibrillation Status: Acute Assessment and Plan: Patient with chronic AFib and with RVR on admission related to the fever. HR better. Continue Coreg. Continue Eliquis. (9) C. difficile colitis: Code(s): A04.72 - Enterocolitis due to Clostridium difficile, not specified as recurrent Status: Acute Assessment and Plan: Patient presented with n/v/d and found to have septic shock with stools returning positive for CDiff. Treated with oral Vanco, oral Fidaxomicin an
[2020-11-17] MEDS: COLLAGENASE OINT 30 GM TUBE 1 APPLIC TOPICAL (13:38)
[2020-11-17] MEDS: FUROSEMIDE INJ 40 MG/4 ML VIAL 20 MG IV PUSH (13:38)
[2020-11-17 15:52] LABS: Glucose Point of Care 254 mg/dl (65-105)
[2020-11-17 17:48] LABS: Anion Gap 7 mmol/L (8-16); Blood Urea Nitrogen 29 mg/dL (9-20); Calcium 7.7 mg/dL (8.4-10.2); Carbon Dioxide 24 mmol/L (22-30); Chloride 100 mmol/L (98-107); Estimated Glomerular Filt Rate 52; Glucose 234 mg/dL (65-110); Potassium 4.8 mmol/L (3.4-5.0); Sodium 131 mmol/L (137-145)
[2020-11-17] MEDS: INSULIN ASPART (*BKC) 100 UNITS/ML SUB-Q (18:44)
[2020-11-17 21:00] LABS: Glucose Point of Care 349 mg/dl (65-105)
[2020-11-18] VITALS (13 sets, daily range): BP systolic 108–132; BP diastolic 41–56; PULSE 64–80; RESP 12–26; TEMP 36.5–37.1; O2SAT 95–97
[2020-11-18] MEDS: CENTRAL LINE FLUSH 10 ML IV PUSH ×3 (06:00→23:45)
[2020-11-18] MEDS: VANCOMYCIN ORAL 125 MG/2.5 ML SYRUP PO ×4 (06:00→23:46)
[2020-11-18 06:22] LABS: Basophils Absolute Auto 0.1 K/mm3 (0.0-0.1); Basophils Percent Auto 0.4 % (0.2-1.2); Eosinophils Absolute Auto 0.1 K/mm3 (0-0.3); Eosinophils Percent Auto 1.2 % (0-4.4); Hematocrit 29.5 % (42.0-52.0); Hemoglobin 8.9 g/dL (14.0-18.0); Immature Granulocyte Absolute 0.06 K/mm3 (0.00-0.031); Immature Granulocyte Percent A 0.5 % (0-0.5); Lymphocytes Absolute Auto 0.59 K/mm3 (0.9-3.2); Mean Corpuscular HGB Conc 30.2 g/dl (32-36); Mean Corpuscular Hemoglobin 26.3 pg (26-34); Mean Corpuscular Volume 87.3 fl (80-100); Mean Platelet Volume 9.3 fl (7.4-10.4); Monocytes Absolute Auto 0.8 K/mm3 (0.1-0.6); Monocytes Percent Auto 6.6 % (2.6-8.5); Neutrophils Absolute Auto 10.1 K/mm3 (1.3-6.7); Neutrophils Percent Auto 86.3 % (45.5-73.1); Platelet Count Result 115 k/mm3 (150-375); Red Blood Count 3.38 M/mm3 (4.6-6.20); Red Cell Distribution Width 16.5 % (11.5-14.5); White Blood Count 11.7 K/mm3 (4.5-10.0)
[2020-11-18 06:34] LABS: Alanine Aminotransferase 22 U/L (4-50); Albumin Level 2.9 g/dL (3.5-5.1); Alkaline Phosphatase 41 U/L (38-126); Anion Gap 6 mmol/L (8-16); Aspartate Amino Transferase 19 U/L (17-59); Bilirubin,Total 0.6 mg/dL (0.2-1.3); Blood Urea Nitrogen 32 mg/dL (9-20); CRP 6.7 mg/dL (<1.0); Calcium 7.8 mg/dL (8.4-10.2); Carbon Dioxide 26 mmol/L (22-30); Chloride 99 mmol/L (98-107); Estimated Glomerular Filt Rate 57; Glucose 263 mg/dL (65-110); Magnesium 1.8 mg/dL (1.6-2.3); Phosphorus 4.2 mg/dL (2.5-4.5); Potassium 4.6 mmol/L (3.4-5.0); Sodium 131 mmol/L (137-145)
[2020-11-18 08:58] LABS: Glucose Point of Care 271 mg/dl (65-105)
[2020-11-18] MEDS: APIXABAN 5 MG TABLET PO ×2 (09:51→17:54)
[2020-11-18] MEDS: LOSARTAN POTASSIUM 50 MG TABLET PO (09:51)
[2020-11-18] MEDS: INSULIN GLARGINE (*BKC) 100 UNITS/ML SUB-Q (09:53)
[2020-11-18] MEDS: INSULIN ASPART (*BKC) 100 UNITS/ML SUB-Q ×3 (09:53→17:55)
--- NOTE | 2020-11-18 10:27 | PM.IMPN ---
Progress Note: A&P Assessment and Plan (1) Sepsis: Qualifiers: Sepsis acute organ dysfunction status: with acute organ dysfunction Sepsis type: sepsis due to unspecified organism Severe sepsis acute organ dysfunction type: encephalopathy Severe sepsis shock status: without septic shock Qualified Code(s): A41.9 - Sepsis, unspecified organism; R65.20 - Severe sepsis without septic shock; G93.40 - Encephalopathy, unspecified Code(s): A41.9 - Sepsis, unspecified organism Status: Acute Assessment and Plan: Patient presents with fevers, shortness of breath, tachycardia, encephalopathy, leukocytosis, and hyperglycemia. BCx now positive (1of2) for Coag negative Staph in aerobic bottle but could be contaminant. Source of sepsis/septicemia more likely related to right stump necrosis. Doubt CDiff playing a part here. Patient started on Zosyn and vancomycin IV. Continue oral Vanco per tapering dose schedule. UCx growing Simran albicans 50-100K but felt to be more of a colonization or contaminant. Check renal US to exclude fungal ball. ID consult since unclear of source and duration of abx since trying to minimize due to recent CDiff infection (2) Encephalopathy: Code(s): G93.40 - Encephalopathy, unspecified Status: Acute Assessment and Plan: Mental status waxes and wanes. More alert today. Suspect related to the sepsis picture. CT brain ordered but still pending. CT brain showing no acute findings (3) Decubital ulcer: Qualifiers: Laterality: unspecified laterality Pressure injury location: buttock Pressure injury stage: unstageable Qualified Code(s): L89.300 - Pressure ulcer of unspecified buttock, unstageable Code(s): L89.90 - Pressure ulcer of unspecified site, unspecified stage Status: Acute Assessment and Plan: Patient has an dry intact eschar on buttocks and sacral ulcers. Per refrigeration person, less likely the source of the fevers and sepsis picture. BCx positive for Coag Negative Staph but could be contaminate (1of2 bottles positive). General Surgery and Wound care consulted and appreciate their input. Continue specialty mattress for pressure relief. Continue wound care and abx. (4) Amputation stump necrosis: Code(s): T87.50 - Necrosis of amputation stump, unspecified extremity Status: Acute Assessment and Plan: Possibly the source of the fever. Continue to follow surgery and wound care recommendations. Continue abx. (5) Fever: Qualifiers: Fever type: unspecified Qualified Code(s): R50.9 - Fever, unspecified Code(s): R50.9 - Fever, unspecified Status: Acute Assessment and Plan: Related to the septic picture. Tylenol available prn (6) Acute hyperkalemia: Code(s): E87.5 - Hyperkalemia Status: Acute Assessment and Plan: Potassium 5.5 on admission and climbed to 6.0 requiring treatment. Repeat potassium today better at 4.6. Follow (7) Bilateral arm weakness: Code(s): R29.898 - Other symptoms and signs involving the musculoskeletal system Status: Acute Assessment and Plan: Patient unable to move bilateral UE. MRI C-spine done 11/10 showing cervical spondylosis and mild spinal stenosis at C5-C6 and moderate spinal stenosis at C6-C7 secondary to bulging disc but with motion artifact. Neuro consulted. (8) Atrial fibrillation with rapid ventricular response: Code(s): I48.91 - Unspecified atrial fibrillation Status: Acute Assessment and Plan: Patient with chronic AFib and with RVR on admission related to the fever. HR better controlled. Continue Coreg. Continue Eliquis. (9) C. difficile colitis: Code(s): A04.72 - Enterocolitis due to Clostridium difficile, not specified as recurrent Status: Acute Assessment and Plan: Patient presented with n/v/d and found to have septic shock with stools returnin
[2020-11-18] MEDS: COLLAGENASE OINT 30 GM TUBE 1 APPLIC TOPICAL (11:24)
[2020-11-18] MEDS: PREGABALIN (*CRX) 50 MG CAPSULE 100 MG PO ×3 (11:25→17:54)
[2020-11-18 12:38] LABS: Glucose Point of Care 293 mg/dl (65-105)
[2020-11-18] MEDS: INSULIN ASPART (*BKC) 100 UNITS/ML 9 UNITS SUB-Q ×2 (12:52→17:55)
[2020-11-18 15:38] LABS: SARS-CoV-2 RNA PCR Negative
[2020-11-18 17:41] LABS: Glucose Point of Care 356 mg/dl (65-105)
--- NOTE | 2020-11-18 19:10 | WPDINFPN2 ---
Progress Note: A&P Assessment and Plan (1) Amputation stump necrosis: Code(s): T87.50 - Necrosis of amputation stump, unspecified extremity Status: Acute Assessment and Plan: fever due to R stump cellulitis REC PipTazo 10 day course would be optimal. Continue oral Vanc taper. Call if Qs Subjective Date/time seen: 11/18/20 19:10 Objective Data Vital Signs Vital Signs: Vital Signs - 24 hr 11/17/20 20:00 11/17/20 22:00 11/17/20 23:51 Temperature 37.1 C 37.2 C Pulse Rate 75 75 75 Respiratory Rate 16 16 Blood Pressure 129/43 L 137/55 L Pulse Oximetry 95 96 11/18/20 00:00 11/18/20 02:00 11/18/20 04:00 Temperature 36.6 C Pulse Rate 77 76 76 Respiratory Rate 15 Blood Pressure 126/50 L Pulse Oximetry 95 11/18/20 06:00 11/18/20 08:00 11/18/20 09:51 Temperature 37.1 C Pulse Rate 72 79 79 Respiratory Rate 26 H Blood Pressure 132/53 L Pulse Oximetry 95 11/18/20 10:00 11/18/20 12:00 11/18/20 14:00 Temperature 36.9 C Pulse Rate 80 77 77 Respiratory Rate 18 Blood Pressure 131/50 L Pulse Oximetry 97 11/18/20 16:00 Temperature 36.8 C Pulse Rate 72 Respiratory Rate 12 Blood Pressure 121/41 L Pulse Oximetry 95 Intake/Output Intake/Output: Intake & Output 11/15/20 11/16/20 11/17/20 11/18/20 23:59 23:59 23:59 23:59 Intake Total 3771 3095 1670 Output Total 2275 814 1600 Balance 1496 2145 70 Meds/Results Medications: Active Medications Generic Name Dose Route Start Last Admin Trade Name Freq PRN Reason Stop Dose Admin Acetaminophen 650 mg 11/17/20 12:53 Acetaminophen 325 Mg Tablet PO Q6H PRN Mild Pain (1-3) or Fever Apixaban 5 mg 11/16/20 09:00 11/18/20 17:54 Apixaban 5 Mg Tablet PO 5 mg BID FAROOQ Administration Carvedilol 40 mg 11/16/20 09:00 11/18/20 09:51 Carvedilol Cr 10 Mg Capsule PO 12/16/20 09:01 40 mg DAILY FAROOQ Administration Collagenase 1 applic 11/17/20 12:35 11/18/20 11:24 Collagenase Oint 30 Gm Tube TOPICAL 1 applic QAM FAROOQ Administration Dextrose 12.5 gm 11/16/20 10:55 Dextrose 50% 25 Gm/50 Ml Syringe IV PUSH PRN PRN Hypoglycemia Protocol Glucagon 1 mg 11/16/20 10:55 Glucagon For Inj 1 Mg Vial IM PRN PRN Hypoglycemia Protocol Glucose 15 gm 11/16/20 10:55 Glucose Oral Gel 15 Gm Of Glucse In 37.5 Gm Tube PO PRN PRN Hypoglycemia Protocol Piperacillin/Tazobactam/Dextrose 3.375 gm in 50 mls @ 100 mls/hr 11/16/20 12:00 11/18/20 17:58 Zosyn 3.375 Gm/D5w 50ml Pm IVPB 100 mls/hr Q6H FAROOQ Administration Dextrose 1,000 mls @ 100 mls/hr 11/16/20 10:55 Dextrose 5% 1,000 Ml IVPB PRN PRN Hypoglycemia Protocol Insulin Aspart 4 - 8 units 11/17/20 12:00 11/18/20 17:55 Insulin Aspart (*Bkc) 100 Units/Ml SUB-Q 8 units TIDWM FAROOQ Administration Protocol Insulin Aspart 9 units 11/18/20 12:00 11/18/20 17:55 Insulin Aspart (*Bkc) 100 Units/Ml 0.05 units/kg (9 units) 9 units SUB-Q Administration TIDWM [facility] Insulin Glargine 120 units 11/19/20 09:00 Insulin Glargine (*Bkc) 100 Units/Ml SUB-Q 12/16/20 09:01 DAILY FAROOQ Losartan Potassium 50 mg 11/16/20 09:00 11/18/20 09:51 Losartan Potassium 50 Mg Tablet PO 50 mg DAILY FAROOQ Administration Miconazole Nitrate 1 applic 11/16/20 09:00 11/18/20 11:25 Miconazole 2% Antifungal Ointment 56 Gm TOPICAL 1 applic Q12HR FAROOQ Administration Pregabalin 100 mg 11/16/20 09:00 11/18/20 17:54 Pregabalin (*Crx) 50 Mg Capsule PO 100 mg TID FAROOQ Administration Sodium Chloride 10 ml 11/17/20 06:00 11/18/20 16:13 Central Line Flush IV PUSH 10 ml Q8HR FAROOQ Administration Sodium Chloride 10 ml 11/17/20 00:06 Central Line Flush IV PUSH PRN PRN with TPN bag changes Sodium Chloride 20 ml 11/17/20 00:06 Central Line Flush IV PUSH PRN PRN after blood draws Vancomycin H
[2020-11-18 20:21] LABS: Glucose Point of Care 369 mg/dl (65-105)
--- NOTE | 2020-11-18 21:06 | CONS_ITS ---
DATE OF CONSULTATION: 11/18/2020 REASON FOR CONSULTATION: Fever. HISTORY OF PRESENT ILLNESS: A 60-year-old male recently here in the hospital, had C difficile infection at that time that was complicated and he has been on fidaxomicin followed by vancomycin taper that he is still on at this time. He was discharged to either LTAC or SNF, but returned the following day, November 15, with fever. While here, he has been on piperacillin tazobactam. He has not required any surgical intervention, and he has defervesced since hospital day 2. The patient cannot provide any additional history. ALLERGIES: MEPERIDINE. HABITS: No tobacco. Rare alcohol. PRESENT MEDICATIONS: Reviewed. PAST MEDICAL HISTORY: As per previous note and I reviewed today, no updates since last consult. FAMILY HISTORY: Not pertinent to his present illness. SOCIAL HISTORY: [facility] resident most recently. REVIEW OF SYSTEMS: 14-point review not obtainable from the patient due to decreased level of consciousness, but attempted. Prior symptoms reviewed. PHYSICAL EXAMINATION: GENERAL: This is a middle-aged male who appears older than his actual age. No respiratory distress. VITAL SIGNS: Afebrile x48 hours, 121/41, 72, 12, 95%. SKIN: Warm and dry. He has erythema and patchy eschar over the right amputation stump. Also, warmth and edema. EENT: Conjunctivae are not injected. Oral mucosa is well hydrated. NECK: No masses. LUNGS: Clear to auscultation on tidal respirations. CARDIAC: Regular rate and rhythm. No murmurs or gallops. ABDOMEN: Massively obese. No tenderness is apparent. No masses are palpable. LABORATORY DATA: White count 11.7, hemoglobin 8.9, platelets are 115, mild left shift on differential. Blood gases show respiratory alkalosis. He has hyponatremia. BUN is 32, creatinine 1.3. Accu-Cheks widely variable. Hemoglobin A1c 2 weeks ago was 8.6%. CRP 6.7, albumin 2.9. RADIOLOGY: Chest x-ray on re-arrival, pulmonary vascular congestion. ASSESSMENT: 1. Fever, I think due to cellulitis of the right amputation stump with wound breakdown and early necrosis. Other sources of his fever are less likely including healthcare-associated pneumonia, Clostridium difficile infection, or others. He has had blood cultures that show coag-negative staph 1 of 2 sets and I do not think this represents a pathogen, rather represents contaminant. 2. Funguria. No infection is present. 3. Morbid obesity. 4. Clostridium difficile infection, on treatment. RECOMMENDATIONS: 1. Continue vancomycin taper as previously outlined. 2. Agree with piperacillin for treatment of his cellulitis, 10-day course would be optimal. 3. Call if further questions. 4. Thank you for asking me to see him. SENAIT PAZ M.D. DIRECTOR OF SOFTWARE DEVELOPMENT DIRECTOR OF SOFTWARE DEVELOPMENT D I MT: Roland
[2020-11-19] VITALS (14 sets, daily range): BP systolic 105–143; BP diastolic 48–76; PULSE 59–86; RESP 16–24; TEMP 36.6–37.1; O2SAT 95–98
[2020-11-19 04:21] LABS: Hematocrit 26.3 % (42.0-52.0); Hemoglobin 8.4 g/dL (14.0-18.0); Mean Corpuscular HGB Conc 31.9 g/dl (32-36); Mean Corpuscular Hemoglobin 27.1 pg (26-34); Mean Corpuscular Volume 84.8 fl (80-100); Mean Platelet Volume 9.9 fl (7.4-10.4); Platelet Count Result 98 k/mm3 (150-375); Red Cell Distribution Width 16.4 % (11.5-14.5); White Blood Count 7.5 K/mm3 (4.5-10.0)
[2020-11-19 04:42] LABS: Albumin Level 2.8 g/dL (3.5-5.1); Anion Gap 5 mmol/L (8-16); Blood Urea Nitrogen 36 mg/dL (9-20); Calcium 7.9 mg/dL (8.4-10.2); Carbon Dioxide 25 mmol/L (22-30); Chloride 101 mmol/L (98-107); Estimated Glomerular Filt Rate 57; Glucose 304 mg/dL (65-110); Phosphorus 3.9 mg/dL (2.5-4.5); Potassium 4.6 mmol/L (3.4-5.0); Sodium 131 mmol/L (137-145)
[2020-11-19] MEDS: VANCOMYCIN ORAL 125 MG/2.5 ML SYRUP PO ×3 (06:28→17:20)
[2020-11-19] MEDS: CENTRAL LINE FLUSH 10 ML IV PUSH ×3 (06:28→20:58)
[2020-11-19 08:09] LABS: Glucose Point of Care 289 mg/dl (65-105)
[2020-11-19] MEDS: INSULIN GLARGINE (*BKC) 100 UNITS/ML 120 UNITS SUB-Q (08:19)
[2020-11-19] MEDS: INSULIN ASPART (*BKC) 100 UNITS/ML 9 UNITS SUB-Q ×2 (08:22→13:24)
[2020-11-19] MEDS: INSULIN ASPART (*BKC) 100 UNITS/ML SUB-Q ×3 (08:22→17:18)
[2020-11-19] MEDS: LOSARTAN POTASSIUM 50 MG TABLET PO (08:24)
[2020-11-19] MEDS: APIXABAN 5 MG TABLET PO ×2 (08:24→17:27)
[2020-11-19] MEDS: PREGABALIN (*CRX) 50 MG CAPSULE 100 MG PO ×3 (08:25→17:17)
--- NOTE | 2020-11-19 11:58 | PM.IMPN ---
Progress Note: A&P Assessment and Plan (1) Sepsis: Qualifiers: Sepsis acute organ dysfunction status: with acute organ dysfunction Sepsis type: sepsis due to unspecified organism Severe sepsis acute organ dysfunction type: encephalopathy Severe sepsis shock status: without septic shock Qualified Code(s): A41.9 - Sepsis, unspecified organism; R65.20 - Severe sepsis without septic shock; G93.40 - Encephalopathy, unspecified Code(s): A41.9 - Sepsis, unspecified organism Status: Acute Assessment and Plan: Patient presents with fevers, shortness of breath, tachycardia, encephalopathy, leukocytosis, and hyperglycemia. BCx now positive (1of2) for Coag negative Staph in aerobic bottle but felt to be contaminant. Source of sepsis/septicemia more likely related to right stump necrosis. Doubt CDiff playing a part here. Patient started on Zosyn and vancomycin IV. Continue oral Vanco per tapering dose schedule. UCx growing Simran albicans 50-100K but felt to be more of a colonization or contaminant. Renal US normal. ID consulted and appreciate thier input. Continue Zosyn for 10 day course. (2) Amputation stump necrosis: Code(s): T87.50 - Necrosis of amputation stump, unspecified extremity Status: Acute Assessment and Plan: Possibly the source of the fever. Continue to follow surgery and wound care recommendations. Continue abx. (3) Encephalopathy: Code(s): G93.40 - Encephalopathy, unspecified Status: Acute Assessment and Plan: Mental status waxes and wanes. CT brain showing no acute findings. More alert today. Suspect related to the sepsis picture. (4) Fever: Qualifiers: Fever type: unspecified Qualified Code(s): R50.9 - Fever, unspecified Code(s): R50.9 - Fever, unspecified Status: Acute Assessment and Plan: Related to the septic picture. Tylenol available prn (5) Decubital ulcer: Qualifiers: Laterality: unspecified laterality Pressure injury location: buttock Pressure injury stage: unstageable Qualified Code(s): L89.300 - Pressure ulcer of unspecified buttock, unstageable Code(s): L89.90 - Pressure ulcer of unspecified site, unspecified stage Status: Acute Assessment and Plan: Patient has an dry intact eschar on buttocks and sacral ulcers. Per banquet server, less likely the source of the fevers and sepsis picture. BCx positive for Coag Negative Staph but could be contaminate (1of2 bottles positive). General Surgery and Wound care consulted and appreciate their input. Continue specialty mattress for pressure relief. Continue wound care (6) Acute hyperkalemia: Code(s): E87.5 - Hyperkalemia Status: Acute Assessment and Plan: Potassium 5.5 on admission and climbed to 6.0 requiring treatment. Repeat potassium is better today at 4.6. Follow (7) Thrombocytopenia: Code(s): D69.6 - Thrombocytopenia, unspecified Status: Acute Assessment and Plan: Plt count dropped yesterday to 115K which is not uncommon for this patient. Plt however continued to decrease to 98K today. Probably consumptive from the sepsis. Not on heparin products. Will follow for now. (8) Bilateral arm weakness: Code(s): R29.898 - Other symptoms and signs involving the musculoskeletal system Status: Acute Assessment and Plan: Patient unable to move bilateral UE. MRI C-spine done 11/10 showing cervical spondylosis and mild spinal stenosis at C5-C6 and moderate spinal stenosis at C6-C7 secondary to bulging disc but with motion artifact. Neuro consulted. (9) Atrial fibrillation with rapid ventricular response: Code(s): I48.91 - Unspecified atrial fibrillation Status: Acute Assessment and Plan: Patient with chronic AFib and with RVR on admission related to the fever. HR better controlled. Continue Coreg. Continue Eliquis. (
[2020-11-19] MEDS: COLLAGENASE OINT 30 GM TUBE 1 APPLIC TOPICAL (13:14)
[2020-11-19 13:23] LABS: Glucose Point of Care 272 mg/dl (65-105)
[2020-11-19] MEDS: PANTOPRAZOLE 40 MG TABLET PO ×2 (13:32→20:58)
[2020-11-19 14:10] LABS: Alanine Aminotransferase 21 U/L (4-50); Albumin Level 2.7 g/dL (3.5-5.1); Alkaline Phosphatase 47 U/L (38-126); Aspartate Amino Transferase 21 U/L (17-59); Bilirubin,Total 0.5 mg/dL (0.2-1.3); Lipase 592 U/L (23-300)
--- NOTE | 2020-11-19 14:30 | PCDIET ---
Nutrition Follow-Up Complete: Nutrition Diagnosis: Increased protein/kcal needs related to increased demands for healing as evidenced by unstageable ulcer on buttocks. Nutrition Goal: Patient to consume 50% of meals + supplements or greater. Goal still in progress. Average intake since 11/17/20 has been 40% of recorded meals. Reported c/o increased abdominal pain today. Noted elevation in lipase. KUB ordered with no results documented as of yet. Diabetic diet with Glenn BID and Glucerna BID continues. Last recorded weight is 174 kg which is increased from last review. +I/O since admission. Bowel Motility: Last documented BM on 11/17/20 x 1. Labs Reviewed: Lipase (592), Glu (272), Alb (2.8), Isidro Ca (8.86) Meds Noted: Coreg, Novolog, Lantus, Cozaar, Protonix, Zosyn, Vancomycin Additional Notes: Lantus increased. Buttocks/head with unstageable ulcers. Right distal leg with venous stasis ulcer. Will continue to monitor with same goal. Nutrition Monitoring and Evaluation: Follow up every 3 days.
[2020-11-19 17:12] LABS: Glucose Point of Care 270 mg/dl (65-105)
[2020-11-19] MEDS: INSULIN ASPART (*BKC) 100 UNITS/ML 18 UNITS SUB-Q (17:18)
--- NOTE | 2020-11-19 19:17 | PC.NURSE ---
1855- Pt medical status- pt moved to room 260 via bed accompanied by staff- bedside report given to Ole MUIR- pt stable - no c/o pain at this time
[2020-11-19] MEDS: METOCLOPRAMIDE HCL 5 MG TABLET PO (20:58)
[2020-11-19 21:28] LABS: Glucose Point of Care 245 mg/dl (65-105)
[2020-11-20] VITALS: BP 115/71; PULSE 77; RESP 20; TEMP 36.1; O2SAT 95
[2020-11-20] MEDS: VANCOMYCIN ORAL 125 MG/2.5 ML SYRUP PO ×4 (00:06→17:29)
[2020-11-20 04:00] VITALS: BP 118/50; PULSE 76; RESP 22; TEMP 37.1; O2SAT 98
[2020-11-20 05:38] VITALS: BP 133/48; PULSE 58; RESP 20; TEMP 36.1; O2SAT 98
[2020-11-20] MEDS: CENTRAL LINE FLUSH 10 ML IV PUSH ×3 (05:52→21:59)
[2020-11-20] MEDS: METOCLOPRAMIDE HCL 5 MG TABLET PO ×4 (05:52→20:13)
[2020-11-20 06:33] LABS: Basophils Percent Auto 0.5 % (0.2-1.2); Eosinophils Absolute Auto 0.1 K/mm3 (0-0.3); Eosinophils Percent Auto 1.5 % (0-4.4); Hematocrit 26.7 % (42.0-52.0); Hemoglobin 8.4 g/dL (14.0-18.0); Immature Granulocyte Absolute 0.05 K/mm3 (0.00-0.031); Immature Granulocyte Percent A 0.6 % (0-0.5); Lymphocytes Absolute Auto 0.61 K/mm3 (0.9-3.2); Lymphocytes Percent Auto 7.5 % (18.3-44.2); Mean Corpuscular HGB Conc 31.5 g/dl (32-36); Mean Corpuscular Hemoglobin 26.8 pg (26-34); Mean Platelet Volume 10.1 fl (7.4-10.4); Monocytes Absolute Auto 0.6 K/mm3 (0.1-0.6); Monocytes Percent Auto 6.9 % (2.6-8.5); Neutrophils Absolute Auto 6.7 K/mm3 (1.3-6.7); Platelet Count Result 109 k/mm3 (150-375); Red Blood Count 3.14 M/mm3 (4.6-6.20); Red Cell Distribution Width 16.3 % (11.5-14.5); White Blood Count 8.1 K/mm3 (4.5-10.0)
[2020-11-20 07:00] LABS: Anion Gap 8 mmol/L (8-16); Blood Urea Nitrogen 40 mg/dL (9-20); Carbon Dioxide 25 mmol/L (22-30); Chloride 99 mmol/L (98-107); Estimated Glomerular Filt Rate 57; Glucose 168 mg/dL (65-110); Lipase 530 U/L (23-300); Potassium 4.5 mmol/L (3.4-5.0); Sodium 132 mmol/L (137-145)
[2020-11-20 07:28] LABS: Iron < 10 ug/dL (49-181)
[2020-11-20 07:38] LABS: Percent Iron Saturation 6 % (20-50)
[2020-11-20 07:50] LABS: Folic Acid 8.7 ng/mL (2.76->20)
[2020-11-20 09:02] VITALS: PULSE 68
[2020-11-20] MEDS: APIXABAN 5 MG TABLET PO ×2 (09:02→17:33)
[2020-11-20] MEDS: PANTOPRAZOLE 40 MG TABLET PO ×2 (09:03→20:13)
[2020-11-20] MEDS: LOSARTAN POTASSIUM 50 MG TABLET PO (09:03)
[2020-11-20 09:15] LABS: Glucose Point of Care 174 mg/dl (65-105)
[2020-11-20] MEDS: INSULIN ASPART (*BKC) 100 UNITS/ML 18 UNITS SUB-Q ×3 (09:36→17:30)
[2020-11-20] MEDS: INSULIN GLARGINE (*BKC) 100 UNITS/ML 135 UNITS SUB-Q (09:37)
[2020-11-20] MEDS: PREGABALIN (*CRX) 50 MG CAPSULE 100 MG PO ×3 (09:37→17:32)
[2020-11-20] MEDS: COLLAGENASE OINT 30 GM TUBE 1 APPLIC TOPICAL (09:38)
[2020-11-20 10:00] VITALS: BP 119/53; PULSE 74; RESP 20; TEMP 36.8; O2SAT 96
--- NOTE | 2020-11-20 10:29 | PM.IMPN ---
Progress Note: A&P Assessment and Plan (1) Sepsis: Qualifiers: Sepsis acute organ dysfunction status: with acute organ dysfunction Sepsis type: sepsis due to unspecified organism Severe sepsis acute organ dysfunction type: encephalopathy Severe sepsis shock status: without septic shock Qualified Code(s): A41.9 - Sepsis, unspecified organism; R65.20 - Severe sepsis without septic shock; G93.40 - Encephalopathy, unspecified Code(s): A41.9 - Sepsis, unspecified organism Status: Acute Assessment and Plan: Patient presents with fevers, shortness of breath, tachycardia, encephalopathy, leukocytosis, and hyperglycemia. BCx now positive (1of2) for Coag negative Staph in aerobic bottle but felt to be contaminant. Source of sepsis/septicemia more likely related to right stump necrosis. Doubt CDiff playing a part here. Patient started on Zosyn and vancomycin IV. We continued the oral Vanco per tapering dose schedule. UCx growing Simran albicans 50-100K but felt to be more of a colonization or contaminant. Renal US normal. ID consulted and appreciate their input. Continue Zosyn for 10 day course through noon on 11/26. (2) Amputation stump necrosis: Code(s): T87.50 - Necrosis of amputation stump, unspecified extremity Status: Acute Assessment and Plan: [place] to be the source of the fever. Continue to follow surgery and wound care recommendations. Continue abx. (3) Encephalopathy: Code(s): G93.40 - Encephalopathy, unspecified Status: Acute Assessment and Plan: Mental status waxes and wanes. CT brain showing no acute findings. More awake and alert today. Suspect related to the sepsis picture. (4) Fever: Qualifiers: Fever type: unspecified Qualified Code(s): R50.9 - Fever, unspecified Code(s): R50.9 - Fever, unspecified Status: Acute Assessment and Plan: Related to the septic picture. Tylenol available prn (5) Decubital ulcer: Qualifiers: Laterality: unspecified laterality Pressure injury location: buttock Pressure injury stage: unstageable Qualified Code(s): L89.300 - Pressure ulcer of unspecified buttock, unstageable Code(s): L89.90 - Pressure ulcer of unspecified site, unspecified stage Status: Acute Assessment and Plan: Patient has an dry intact eschar on buttocks and sacral ulcers. Per wound care physician, less likely the source of the fevers and sepsis picture. BCx positive for Coag Negative Staph but could be contaminate (1of2 bottles positive). General Surgery and Wound care consulted and appreciate their input. Continue specialty mattress for pressure relief. Continue wound care (6) Acute hyperkalemia: Code(s): E87.5 - Hyperkalemia Status: Acute Assessment and Plan: Potassium 5.5 on admission and climbed to 6.0 requiring treatment. Repeat potassium is better today at 4.5. Follow (7) Thrombocytopenia: Code(s): D69.6 - Thrombocytopenia, unspecified Status: Acute Assessment and Plan: Plt count dropped yesterday to 98K which is not uncommon for this patient. Plt count has improved to 109K today. Probably consumptive from the sepsis. Not on heparin products. Will follow for now. (8) Bilateral arm weakness: Code(s): R29.898 - Other symptoms and signs involving the musculoskeletal system Status: Acute Assessment and Plan: Patient unable to move bilateral UE. MRI C-spine done 11/10 showing cervical spondylosis and mild spinal stenosis at C5-C6 and moderate spinal stenosis at C6-C7 secondary to bulging disc but with motion artifact. Neuro consulted. (9) Atrial fibrillation with rapid ventricular response: Code(s): I48.91 - Unspecified atrial fibrillation Status: Acute Assessment and Plan: Patient with chronic AFib and with RVR on admission related to the fever. HR better controlled. Continue Coreg
[2020-11-20 13:07] LABS: Glucose Point of Care 173 mg/dl (65-105)
[2020-11-20 14:00] VITALS: BP 121/53; PULSE 67; RESP 20; TEMP 36.9; O2SAT 94
--- NOTE | 2020-11-20 15:19 | PM.TDS ---
Transfer Discharge Sum: Prov Provider Date of admission: 11/16/20 00:04 Primary care physician: Beltran Reyes, MD Admitting clinician: Marielle Moore DO Consults: 11/16/20 Consult to Physician Routine Comment: Consulting Provider: Milton Houston business services analyst/MD group to consult: general surgery Reason for consultation: unstageable buttock decubitus with foul odor and sepsis Has provider been notified: Yes 11/16/20 00:07 Consult to Physician Routine Comment: Consulting Provider: Aadrsh Vasquez Reason for consultation: Fever Has provider been notified: Yes 11/17/20 12:54 Consult to Physician Routine Comment: CALLED DR. WOODS WITH THE CONSULT INFORMATION Consulting Provider: Rakesh Woods business services analyst/ group to consult: neuro Reason for consultation: upper exxtrem weakness Has provider been notified: Yes 11/18/20 10:49 Consult to Physician Routine Comment: called pager for consult Consulting Provider: Gil Díaz business services analyst/MD group to consult: ID Reason for consultation: sepsis Has provider been notified: Yes Attending physician on discharge: Ruel Bledsoe Discharging clinician: Ruel Bledsoe Anticipated date of transfer: 11/20/20 Receiving physician/facility: Dr Dinero at [facility] DS: Admitting Diagnosis Admitting Diagnosis Fevers DS: Discharge Diagnosis Discharge Diagnosis (1) Sepsis: Qualifiers: Sepsis type: sepsis due to unspecified organism Sepsis acute organ dysfunction status: with acute organ dysfunction Severe sepsis acute organ dysfunction type: encephalopathy Severe sepsis shock status: without septic shock Qualified Code(s): A41.9 - Sepsis, unspecified organism; R65.20 - Severe sepsis without septic shock; G93.40 - Encephalopathy, unspecified Code(s): A41.9 - Sepsis, unspecified organism Status: Acute Assessment and Plan: Patient presents with fevers, shortness of breath, tachycardia, encephalopathy, leukocytosis, and hyperglycemia. BCx now positive (1of2) for Coag negative Staph in aerobic bottle but felt to be contaminant. Source of sepsis/septicemia more likely related to right stump necrosis. Doubt CDiff playing a part here. Patient started on Zosyn and vancomycin IV. We continued the oral Vanco per tapering dose schedule. UCx growing Simran albicans 50-100K but felt to be more of a colonization or contaminant. Renal US normal. ID consulted and appreciate their input. Continue Zosyn for 10 day course through noon on 11/26. (2) Amputation stump necrosis: Code(s): T87.50 - Necrosis of amputation stump, unspecified extremity Status: Acute Assessment and Plan: [place] to be the source of the fever. Continue to follow surgery and wound care recommendations. Continue abx. (3) Encephalopathy: Code(s): G93.40 - Encephalopathy, unspecified Status: Acute Assessment and Plan: Mental status waxes and wanes. CT brain showing no acute findings. More awake and alert today. Suspect related to the sepsis picture. (4) Fever: Qualifiers: Fever type: unspecified Qualified Code(s): R50.9 - Fever, unspecified Code(s): R50.9 - Fever, unspecified Status: Acute Assessment and Plan: Related to the septic picture. Tylenol available prn (5) Decubital ulcer: Qualifiers: Pressure injury location: buttock Pressure injury stage: unstageable Laterality: unspecified laterality Qualified Code(s): L89.300 - Pressure ulcer of unspecified buttock, unstageable Code(s): L89.90 - Pressure ulcer of unspecified site, unspecified stage Status: Acute Assessment and Plan: Patient has an dry intact eschar on buttocks and sacral ulcers. Per cad specialist, less likely the source of the fevers and sepsis picture. BCx positive for Coag Negative Staph but could be contaminate (1of2 bottles positive). General Surgery and
--- NOTE | 2020-11-20 16:12 | PM.DS ---
DS: Admitting Diagnosis Admitting Diagnosis Fevers DS: Discharge Diagnosis Discharge Diagnosis (1) Sepsis: Qualifiers: Sepsis acute organ dysfunction status: with acute organ dysfunction Sepsis type: sepsis due to unspecified organism Severe sepsis acute organ dysfunction type: encephalopathy Severe sepsis shock status: without septic shock Qualified Code(s): A41.9 - Sepsis, unspecified organism; R65.20 - Severe sepsis without septic shock; G93.40 - Encephalopathy, unspecified Code(s): A41.9 - Sepsis, unspecified organism Status: Acute Assessment and Plan: Patient presented with fevers, shortness of breath, tachycardia, encephalopathy, leukocytosis, and hyperglycemia. BCx now positive (1of2) for Coag negative Staph in aerobic bottle but felt to be contaminant. Source of sepsis/septicemia more likely related to right stump necrosis/cellulitis. Doubt CDiff playing a part here. Patient started on Zosyn and vancomycin IV. We continued the oral Vanco per tapering dose schedule for his known CDiff. UCx growing Simran albicans 50-100K but felt to be more of a colonization or contaminant. Renal US normal. ID consulted and appreciate their input. They recommended continuing the Zosyn for a 10 day course. (2) Amputation stump necrosis: Code(s): T87.50 - Necrosis of amputation stump, unspecified extremity Status: Acute Assessment and Plan: [place] to be the source of the fever. Continue to follow surgery and wound care recommendations. Continue abx. (3) Encephalopathy: Code(s): G93.40 - Encephalopathy, unspecified Status: Acute Assessment and Plan: Mental status waxed and waned initially but then improved. CT brain showing no acute findings. More awake and alert today. Suspect related to the sepsis picture. (4) Fever: Qualifiers: Fever type: unspecified Qualified Code(s): R50.9 - Fever, unspecified Code(s): R50.9 - Fever, unspecified Status: Acute Assessment and Plan: Related to the septic picture. Tylenol available prn (5) Decubital ulcer: Qualifiers: Laterality: unspecified laterality Pressure injury location: buttock Pressure injury stage: unstageable Qualified Code(s): L89.300 - Pressure ulcer of unspecified buttock, unstageable Code(s): L89.90 - Pressure ulcer of unspecified site, unspecified stage Status: Acute Assessment and Plan: Patient has an dry intact eschar on buttocks and sacral ulcers. Per director voice, less likely the source of the fevers and sepsis picture. BCx positive for Coag Negative Staph but could be contaminate (1of2 bottles positive). General Surgery and Wound care consulted and appreciate their input. Continue specialty mattress for pressure relief. Continue wound care (6) Acute hyperkalemia: Code(s): E87.5 - Hyperkalemia Status: Acute Assessment and Plan: Potassium 5.5 on admission and climbed to 6.0 requiring treatment. Repeat potassium improved to normal (7) Thrombocytopenia: Code(s): D69.6 - Thrombocytopenia, unspecified Status: Acute Assessment and Plan: Plt count dropped yesterday to 98K which is not uncommon for this patient. Plt count has improved to 109K. Probably consumptive from the sepsis. Not on heparin products. Will follow for now. (8) Bilateral arm weakness: Code(s): R29.898 - Other symptoms and signs involving the musculoskeletal system Status: Acute Assessment and Plan: Patient unable to move bilateral UE. This was noted last admission and MRI C-spine done 11/10 showing cervical spondylosis and mild spinal stenosis at C5-C6 and moderate spinal stenosis at C6-C7 secondary to bulging disc but with motion artifact. The patient had to be sent out to a different hospital for the MRI since he is too big for ours. Patient states that he has had a history of bilateral upper
[2020-11-20 17:17] LABS: Glucose Point of Care 151 mg/dl (65-105)
[2020-11-20 20:22] LABS: Glucose Point of Care 189 mg/dl (65-105)
[2020-11-21 06:00] VITALS: BP 151/69; PULSE 81; TEMP 37.1; O2SAT 92
--- NOTE | 2020-11-21 07:58 | PC.NURSE ---
ambulance transport was initially scheduled for 11/20/20 at 1900 but was delayed to 2330 and then 0130. I called the [facility] and they refused the transport until the morning due to their pharmacy not available after 0300. Melissa was called and transportation was scheduled for 0500 on 11/21/20. WOOD Alonso at [facility] was called and notified this morning at 0620.
--- NOTE | 2020-12-19 10:45 | WPDCN ---
HPI Data of Consult Date/Time: 12/19/20 10:45 Requesting Physician: Brando Bledsoe MD Primary Care Provider: Beltran Reyes, Consult Narrative Narrative: patient not seen before got transferred and patient seen during last visit [facility] Past Medical History Medical History Atrial fibrillation On chronic anticoagulation with Eliquis C. difficile colitis Chronic kidney disease, stage 3 With history of temporary dialysis in the past. Decubital ulcer Diabetes mellitus type 2 in obese Diabetic nephropathy Hands Diastolic dysfunction Last echocardiogram March 2018 demonstrated normal EF of 65-70 with moderate LVH and severe left atrial enlargement GI bleed HTN (hypertension), malignant Hyperlipidemia Metabolic acidosis Morbid obesity Obstructive sleep apnea treated with BiPAP patient is noncompliant with his BiPAP Peripheral vascular disease Surgical History Surgical History History of appendectomy History of bilateral carpal tunnel release History of left above knee amputation History of right below knee amputation History of tonsillectomy and adenoidectomy Family History Family History Sibling Lung cancer Sister Hypertension Brain cancer Father Diabetes mellitus Coronary artery disease Hypertension Mother Acute myocardial infarction Other Family history of arthritis Social History Social History Social History: The patient lived with the brother who is an over the road otr tanker truck driver who is rarely home. after his most recent ( 11/14/2020) he was discharged to [facility]. Primary care physician: Dr. Beltran Reyes Code status: Full code Smoking status: Never smoker Alcohol intake: never Drinks per week: 1 Alcohol use details: The patient only uses minimal alcohol on occasion. Substance use: never Additional living arrangements comments: He owns his own house but his brother lives with him and helps him when needed. However his brother is an zxdf-obf-kzgy otr tanker truck driver and is rarely home. 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 He is on disability due to his peripheral vascular disease and bilateral lower extremity amputations. Gender identity (if verbalized by the patient): Male Spiritual care concerns: No Agree to blood products: Yes Meds Home Medications and Allergies Home Medications Medication Instructions Recorded Confirmed Type apixaban 5 mg tablet 5 mg PO BID 05/14/19 11/16/20 History carvedilol phosphate 80 mg 40 mg PO DAILY 05/14/19 11/16/20 History capsule,[id number] multiphase digoxin 250 mcg (0.25 mg) tablet 125 mcg PO DAILY 05/14/19 11/16/20 History insulin regular hum U-500 conc See Rx Instructions .ROUTE .COMPLEX 05/14/19 11/16/20 History losartan 50 mg PO DAILY 08/12/19 11/16/20 History spironolactone 25 mg PO DAILY 08/12/19 11/16/20 History torsemide 20 mg PO QAM 08/12/19 11/16/20 History Aloe Burke Antifungal (micon) 1 applic TOPICAL Q12HR #141 gm 12/03/19 11/16/20 Rx potassium chloride 20 mEq 60 meq PO DAILY tablet 07/31/20 11/16/20 History tablet,extended release(part/cryst) pregabalin 100 mg capsule 100 mg PO TID 07/31/20 11/16/20 History acetaminophen [Mapap 650 mg PO Q6H PRN #0 tablet 11/20/20 Rx (acetaminophen)] collagenase clostridium histo. 1 applic TOPICAL QAM #0 g 11/20/20 Rx [Santyl] foam bandage [Mepilex] #0 ea 11/20/20 Rx foam bandage [Mepilex] #0 ea 11/20/20 Rx insulin aspart U-100 [Novolog 18 unit SUBCUT TIDWM #0 ml 11/20/20 Rx U-100 Insulin aspart] insulin glargine [Lantus U-100 135 unit SUBCUT DAILY #0 ml 11/20/20 Rx Insulin] metoclopramide HCl
== END 2020-11-21 06:20 | DRG 564 ==
LOC: ANHED 11-16 00:03 → ANHIMU 11-19 09:53 → ANH2MED 11-20 16:16 → ANHICU 11-24 15:31 → ANHIMU 11-24 15:31
PROVIDERS: General Practice; Internal Medicine; Admitting Provider Internal Medicine; Emergency Provider Emergency Medicine; PCP Internal Medicine; Visit Provider Internal Medicine
DX: T87.43 Infection of amputation stump, right lower extremity (principal); A41.9 Sepsis, unspecified organism; G93.41 Metabolic encephalopathy; R65.20 Severe sepsis without septic shock; I48.20 Chronic atrial fibrillation, unspecified; Z68.41 Body mass index [BMI] 40.0-44.9, adult; I13.0 Hypertensive heart and chronic kidney disease with heart failure and stage 1 through stage 4 chronic kidney disease, or unspecified chronic kidney disease; I50.32 Chronic diastolic (congestive) heart failure; L03.115 Cellulitis of right lower limb; A04.72 Enterocolitis due to Clostridium difficile, not specified as recurrent; J96.11 Chronic respiratory failure with hypoxia; Y83.5 Amputation of limb(s) as the cause of abnormal reaction of the patient, or of later complication, without mention of misadventure at the time of the procedure; T87.53 Necrosis of amputation stump, right lower extremity; Z20.822 Contact with and (suspected) exposure to COVID-19; E87.5 Hyperkalemia; D69.59 Other secondary thrombocytopenia; E66.01 Morbid (severe) obesity due to excess calories; D63.8 Anemia in other chronic diseases classified elsewhere; E11.22 Type 2 diabetes mellitus with diabetic chronic kidney disease; N18.30 Chronic kidney disease, stage 3 unspecified; E11.65 Type 2 diabetes mellitus with hyperglycemia; G47.33 Obstructive sleep apnea (adult) (pediatric); E78.5 Hyperlipidemia, unspecified; E11.21 Type 2 diabetes mellitus with diabetic nephropathy; E11.51 Type 2 diabetes mellitus with diabetic peripheral angiopathy without gangrene; I73.9 Peripheral vascular disease, unspecified; L89.320 Pressure ulcer of left buttock, unstageable; L89.310 Pressure ulcer of right buttock, unstageable; Z89.511 Acquired absence of right leg below knee; Z89.612 Acquired absence of left leg above knee; Z90.49 Acquired absence of other specified parts of digestive tract; Z79.01 Long term (current) use of anticoagulants
CPT/HCPCS: 36415; 36569; 36600; 70450; 71045; 74018; 76775; 80048; 80053; 80069; 80076; 82375; 82607; 82728; 82746; 82805; 82948; 83050; 83540; 83550; 83605; 83690; 83735; 83880; 84100; 84443; 84484; 85025; 85027; 85610; 85730; 86140; 87040; 87077; 87086; 87088; 87106; 87186; 87804; 93005; 96361; 96365; 96375; 99285; A9270; C1751; C9803; J0131; J0610; J1815; J1940; J2270; J2543; J3370; J7030; U0003; U0005

== ENCOUNTER 2020-12-19 18:50 | Inpatient (IN) | payer MEDICARE, OTHER, SELFPAY ==
[2020-12-19] VITALS (8 sets, daily range): BP systolic 102–130; BP diastolic 61–74; PULSE 92–112; RESP 16–25; TEMP 37.3; O2SAT 97–100
--- NOTE | ~2020-12-19 | XR_ITS ---
XR chest 1V portable DATE: 12/19/2020 19:47 INDICATION: PICC line placement TECHNIQUE: Portable AP chest views on 12/19/2020 at 1933 1934 hours COMPARISON: 11/16/2020 portable AP chest FINDINGS: Right upper extremity PIC catheter tip overlies superior vena cava. No pneumothorax is evid ent. There is discoid atelectasis and/or scarring at the left lung base. The lungs otherwise appear clear. IMPRESSION: Right upper extremity PIC catheter overlying superior vena cava Reviewed, dictated and finalized at location A.
--- NOTE | ~2020-12-19 | US_ITS ---
US renal BI 01/07/2021 14:59 Procedure: Realtime transabdominal ultrasound of the kidneys and bladder. Indication: Elevated creatinine Comparison: 01/02/2021 Findings: Study limited by patient body habitus. Renal echotexture is normal bilaterally without hydr onephrosis, contour deforming mass or renal calculus. The right kidney measures 11.8 cm and left kidn ey measures 11.1 cm. Bladder within normal limits. Impression: 1: Unremarkable renal ultrasound. No stones, masses or hydronephrosis. Reviewed, dictated and finalized at location A. Impression: 1: Unremarkable renal ultrasound. No stones, masses or hydronephrosis.
--- NOTE | ~2020-12-19 | XR_ITS ---
XR abdomen/kub 1V DATE: 12/21/2020 18:25 INDICATION: Burkitt's gastrostomy tube placement TECHNIQUE: Portable supine AP views on 12/21/2020 at 8877-8868 hours COMPARISON: 11/11/2020 KUB FINDINGS: A particular has gastrostomy tube with inflated balloon overlies the body of the stomach in the mid upper abdomen. There are numerous nonspecific gas distended small and large bowel segments. IMPRESSION: Percutaneous gastrostomy tube overlying body of stomach Reviewed, dictated and finalized at Location A. Reviewed, dictated and finalized at location A.
--- NOTE | ~2020-12-19 | CT_ITS ---
EXAMINATION: CT abdomen pelvis wo con DATE: 12/25/2020 09:40 INDICATION: Ostomy planning. Sacral pressure ulcers. Sepsis. TECHNIQUE: Computed tomography (CT) of the abdomen and pelvis was performed without intravenous contr ast. Automated exposure control and iterative reconstruction technique were employed. The dose-length product was 1724.85 mGy-cm. COMPARISON: 10/31/2020 FINDINGS: Small bilateral posteriorly layering pleural effusions. Dependent is compressive atelectasis in the b ilateral lower lobes with associated volume loss, left greater than right. Heart size is normal. Athe rosclerotic coronary artery calcification. No pericardial effusion. Percutaneous gastrostomy tube in the distal body of the stomach. Gallstone near the neck of the otherwise normal-appearing gallbladder with no evident wall thickening or pericholecystic inflammatory change to suggest acute cholecystiti s. Liver, pancreas, right kidney and bilateral adrenal glands are normal. Mild left hydroureteronephr osis which extends to the bladder without evident obstructing stone or mass. Suggestion of wall thick ening at the bladder which is decompressed around a Abarca catheter limiting evaluation. Splenomegaly measuring 15.9 cm in maximal craniocaudal length. Fluid throughout the colon consistent with diarrhea . No bowel obstruction. Portion of the right lateral abdominal wall, cecum and ascending colon are ex cluded from the [id number]-ghnt due to patient body habitus. No free intraperitoneal gas or fluid. No p athologically enlarged abdominal or pelvic lymphadenopathy. There are bridging osteophytes at multipl e levels in the spine, consistent with diffuse idiopathic skeletal hyperostosis (DISH). Deep sacral d ecubitus ulcer which contacts the caudal tip of the sacrum as well as the posterior margin of the mari cyx, the latter which appears partially eroded consistent with osteomyelitis. IMPRESSION: 1. Small bilateral posteriorly layering pleural effusions with associated compressive atelectasis in the bilateral lower lobes. 2. Cholelithiasis. 3. Chronic nonspecific splenomegaly which could be related to body habitus. 4. Mild left hydroureteronephrosis extending to the ureterovesicular junction without evident obstruc ting stone or mass. 5. Suggestion of some wall thickening at the decompressed bladder which could be seen with chronic ou tlet obstruction or cystitis either acute or chronic. Correlate with urinalysis. 6. Nonspecific diarrhea. 7. Deep sacral decubitus ulcer with new partial erosion of the coccyx consistent with osteomyelitis. Reviewed, dictated and finalized at location A. IMPRESSION: 1. Small bilateral posteriorly layering pleural effusions with associated compr essive atelectasis in the bilateral lower lobes. 2. Cholelithiasis. 3. Chronic nonspecific splenomegaly which could be related to body habitus. 4. Mild left hydroureteronephrosis extending to the ureterovesicular junction w ithout evident obstructing stone or mass. 5. Suggestion of some wall thickening at the decompressed bladder which could b e seen with chronic outlet obstruction or cystitis either acute or chronic. Cor relate with urinalysis. 6. Nonspecific diarrhea. 7. Deep sacral decubitus ulcer with new partial erosion of the coccyx consisten t with osteomyelitis.
--- NOTE | ~2020-12-19 | US_ITS ---
US renal BI 01/02/2021 16:54 Procedure: Realtime transabdominal ultrasound of the kidneys and bladder. Indication: Acute renal insufficiency Comparison: Ultrasound dated 11/18/2020 Findings: Renal echotexture is normal bilaterally without hydronephrosis, contour deforming mass or r enal calculus. The right kidney measures 12.2 cm and left kidney measures 13.9 cm. Bladder not well visualized due to Abarca catheterization. Examination is limited due to patient body habitus. Impression: 1: Unremarkable renal ultrasound. No stones, masses or hydronephrosis. Study limited by patient body habitus. Reviewed, dictated and finalized at location A. Impression: 1: Unremarkable renal ultrasound. No stones, masses or hydronephrosis. Study l imited by patient body habitus.
--- NOTE | 2020-12-19 19:12 | ED.ABDPAIN ---
HPI - Abdominal Pain General Chief Complaint: Abdominal Pain Stated Complaint: hematuria Time Seen by Provider: 12/19/20 19:03 Source: RN notes reviewed History of Present Illness HPI narrative: Patient presents to emergency department from [facility] for hematuria. Patient states that he is a quadriplegic and has had several Abarca catheter changes by the care home over the past 2 weeks he states today he began to have gross hematuria and was sent for further evaluation patient states that he is passed several large blood clots he states that with this he has been having some lower abdominal pain described as cramping he denies any fevers or chills chest pain shortness of breath nausea vomiting diarrhea or any other symptoms Related Data Home Medications Medication Instructions Recorded Confirmed apixaban 5 mg tablet 5 mg FEEDING TUBE BID 05/14/19 12/20/20 acetaminophen [Mapap 650 mg FEEDING TUBE Q6H PRN 12/20/20 12/20/20 (acetaminophen)] carvedilol [Coreg] 12.5 mg FEEDING TUBE BID 12/20/20 12/20/20 cholecalciferol (vitamin D3) 1,250 mcg FEEDING TUBE WEEKLY 12/20/20 12/20/20 empagliflozin [Jardiance] 25 mg FEEDING TUBE DAILY 12/20/20 12/20/20 honey [MediHoney (honey)] 1 applic TOPICAL DAILY 12/20/20 12/20/20 hydrocodone-acetaminophen 1 tablet FEEDING TUBE Q6H PRN 12/20/20 12/20/20 insulin glargine [Lantus U-100 50 unit SUBCUT BID 12/20/20 12/20/20 Insulin] insulin lispro 1 sliding scale dose SUBCUT QID 12/20/20 12/20/20 insulin lispro 30 unit SUBCUT TIDWM 12/20/20 12/20/20 levofloxacin 750 mg FEEDING TUBE DAILY 12/20/20 12/20/20 menthol-zinc oxide [Calmoseptine] 1 applic TOPICAL TID 12/20/20 12/20/20 metronidazole [Flagyl] 500 mg FEEDING TUBE Q8H 12/20/20 12/20/20 miconazole nitrate 1 applic TOPICAL TID 12/20/20 12/20/20 polyethylene glycol 3350 [Miralax] 17 g PO DAILY PRN 12/20/20 12/20/20 povidone-iodine [Betadine] 1 applic TOPICAL DAILY 12/20/20 12/20/20 propafenone 300 mg FEEDING TUBE Q8H 12/20/20 12/20/20 vancomycin 125 mg PO BID 12/20/20 12/20/20 vancomycin in 0.9 % sodium chl 2 g IV BID 12/20/20 12/20/20 Allergies Allergy/AdvReac Type Severity Reaction Status Date / Time meperidine AdvReac Mild Nausea Verified 11/15/20 22:07 Review of Systems Review of Systems: Gen.: Denies fevers or chills ENT: Denies congestion Respiratory: Denies shortness of breath or cough CV: Denies chest pain or palpitations GI: Reports lower abdominal pain see HPI Musculoskeletal: Denies back pain or muscle pain Neuro: Denies numbness, tingling, weakness or focal weakness Skin: Denies rash Except as documented, all other systems reviewed and negative PMFSH Past Medical History Medical History Atrial fibrillation On chronic anticoagulation with Eliquis C. difficile colitis Chronic kidney disease, stage 3 With history of temporary dialysis in the past. Decubital ulcer Diabetes mellitus type 2 in obese Diabetic nephropathy Hands Diastolic dysfunction Last echocardiogram March 2018 demonstrated normal EF of 65-70 with moderate LVH and severe left atrial enlargement GI bleed HTN (hypertension), malignant Hyperlipidemia Metabolic acidosis Morbid obesity Obstructive sleep apnea treated with BiPAP patient is noncompliant with his BiPAP Peripheral vascular disease Surgical History Surgical History History of appendectomy History of bilateral carpal tunnel release History of left above knee amputation History of right below knee amputation History of tonsillectomy and adenoidectomy Family History Family History Sibling Lung cancer Sister Hypertension Brain cancer Father Diabetes mellitus Coronary artery disease Hypertension Mother Acute myocardial infarction Other Family history of arthritis Social History Socia
[2020-12-19 20:55] LABS: Add Urine Microscopic? YES; Appearance Urine Cloudy (Clear); Bacteria Urine Trace /hpf; Bilirubin Urine Negative (Negative); Blood Urine 3+ (Negative); Color Urine Red (Yellow); Glucose Urine UA 3+ mg/dL (Negative); Ketones Urine Negative (Negative); Leukocyte Esterase Ur 2+ LEU/UL (Negative); Nitrate Urine Negative (Negative); Protein Urine 2+ mg/dL (Negative); RBC Urine >75 /hpf (0-2); Specific Grav Ur 1.013 (1.001-1.035); Urobilinogen Urine Negative mg/dL (<2.0); WBC Urine >75 /hpf
[2020-12-19 21:55] LABS: Hemoglobin 9.3 g/dL (14.0-18.0); Mean Corpuscular Hemoglobin 26.3 pg (26-34); Mean Corpuscular Volume 84.7 fl (80-100); Mean Platelet Volume 8.2 fl (7.4-10.4); Platelet Count Result 203 k/mm3 (150-375); Red Blood Count 3.54 M/mm3 (4.6-6.20); Red Cell Distribution Width 18.6 % (11.5-14.5); White Blood Count 15.6 K/mm3 (4.5-10.0)
[2020-12-19 22:05] LABS: INR 1.2; Prothrombin Time 14.6 Seconds (11.1-14.7)
[2020-12-19 22:17] LABS: Alanine Aminotransferase 17 U/L (4-50); Alkaline Phosphatase 85 U/L (38-126); Anion Gap 8 mmol/L (8-16); Aspartate Amino Transferase 31 U/L (17-59); Bilirubin,Total 0.5 mg/dL (0.2-1.3); Blood Urea Nitrogen 20 mg/dL (9-20); Calcium 7.9 mg/dL (8.4-10.2); Carbon Dioxide 28 mmol/L (22-30); Chloride 90 mmol/L (98-107); Estimated Glomerular Filt Rate > 60; Glucose 99 mg/dL (65-110); Potassium 3.5 mmol/L (3.4-5.0); Sodium 126 mmol/L (137-145)
[2020-12-19 22:21] LABS: Band Neutrophils Percent 8 % (0-6); Lymphocytes Absolute Manual 0.62 K/mm3 (1.1-4.5); Monocytes Absolute Manual 0.93 K/mm3 (0.1-0.90); Monocytes Percent Manual 6 % (3-9); Neutrophils Absolute Manual 14.04 K/mm3 (1.3-6.7); Neutrophils Percent Manual 82 % (46-73); Total Cells Counted 100
[2020-12-19 22:22] LABS: Anisocytosis 2+ (NORMAL); Hypochromasia 1+ (NORMAL); Platelet Estimate Adequate (Adequate)
[2020-12-19] MEDS: SODIUM CHLORIDE 0.9% IV 1,000 ML 999 ML IV CONT (23:04)
[2020-12-19 23:45] LABS: Lactic Acid Reflex 0.9 mmol/L (0.7-2.1)
[2020-12-20] VITALS (27 sets, daily range): BP systolic 110–143; BP diastolic 26–71; PULSE 105–142; RESP 20–30; TEMP 36.5–39.3; O2SAT 96–100; BMI 47.0
--- NOTE | 2020-12-20 | ECHO_ITS ---
Patient Info Name: Lester Nguyễn Age: 60 years : 1960 Gender: Male Ht: 74 in Wt: 309 lbs BSA: 2.76 m2 HR: 111 bpm BP: 118 / 56 mmHg Heart Rhythm: Atrial Fibrillation Technical Quality: Poor Exam Date: 12/20/2020 11:41 AM Exam Location: [facility] Pulmonary Exam Room: 231 Patient Status: Inpatient Admit Date: 12/20/2020 Staff Ordering Physician: Marielle Moore DO Forming Yardage Control Operator: Roxy Astorga RDCS Attending Provider: Marielle Moore DO Referring Physician: Oscar JUNE; Exam Type: CA echo dop color flow w con Study Info Indications - RVR I48.1 - Persistent atrial fibrillation Complete two-dimensional, color flow and Doppler transthoracic echocardiogram is performed with contrast to opacify the left ventricle and to improve the deliniation of the left ventricle endocardial borders. Contrast/Agitated Saline Contrast/Ag. Saline: Definity Amount: 1.00 ml Administered By: Josh Raza RN Existing IV Access: Yes Reason for Poor Study: patient body habitus Summary 1. Left ventricular chamber dimension is normal. 2. Left ventricular systolic function is normal, estimated at 60-65%. 3. Definity contrast injected to improve visualization. 4. Left atrial chamber dimension is moderately enlarged. 5. The mitral valve annulus is moderately calcified. Left Ventricle Left ventricular chamber dimension is normal. Left ventricular systolic function is normal, estimated at 60-65%. The left ventricular diastolic function is indeterminate. Definity contrast injected to improve visualization. Right Ventricle Right ventricular chamber dimension is normal. Left Atria Left atrial chamber dimension is moderately enlarged. Right Atria Right atrial chamber dimension is mildly enlarged. Aortic Valve The aortic valve is not well visualized. There is no aortic valve stenosis. Pulmonic Valve The pulmonic valve is not well visualized. Mitral Valve The mitral valve has normal leaflets. There is trace mitral valve regurgitation. The mitral valve annulus is moderately calcified. Tricuspid Valve The tricuspid valve leaflets are not well visualized. Pericardium/Pleural The pericardium appears normal. Aorta The aortic root size at the sinus of Valsalva is normal. Left Ventricular Outflow Tract Name Value Normal LVOT 2D LVOT Diameter 2.14 cm LVOT Doppler LVOT Peak Gradient 5 mmHg LVOT Mean Gradient 3 mmHg LVOT VTI 17.27 cm LVOT VTI/AV VTI Ratio 0.75 LVOT Stroke Volume 62.16 ml LVOT CO 18.67 l/min LVOT CI 6.76 L/min/m2 Pulmonic Valve Name Value Normal PV Doppler PV Peak
--- NOTE | 2020-12-20 00:11 | PC.NURSE ---
825mL drained from shaw at this time.
[2020-12-20] MEDS: carvediloL 12.5 MG TABLET PO (00:12)
[2020-12-20] MEDS: metroNIDAZOLE 250 MG TABLET 500 MG PO (01:21)
--- NOTE | 2020-12-20 01:26 | PC.NURSE ---
800mL emptied from shaw at this time.
[2020-12-20] MEDS: VANCOMYCIN ORAL 125 MG/2.5 ML SYRUP PO ×2 (01:32→13:15)
--- NOTE | 2020-12-20 03:47 | PC.NURSE ---
YASH faxed to IMU department from ED. Report called by WOOD Ann with the ED at 0221. Report given. All questions answered and plan of care reviewed. Patient to be admitted to IMU bed 231.
--- NOTE | 2020-12-20 03:48 | ADMGEN ---
This patient, Lester Nguyễn, was admitted to IMU Room 231-01 at 0221 from the ED. Patient/family oriented to hospital policies and general routines including ID bracelet, bed and alarms, visiting hours, pain management, procedures, bathroom and other care routines, personal items, smoking policy, room service/diet, and visiting hours. Information on how to activate the Rapid Response Team has been discussed. Patient/Family are encouraged to report perceived risks to care and to ask questions if they do not understand what they are told or what they should do.
[2020-12-20] MEDS: SODIUM CHLORIDE 0.9% IV 1,000 ML 100 ML IV CONT (05:25)
[2020-12-20] MEDS: dilTIAZem HCl INJ 25 MG/5 ML VIAL 10 MG IV PUSH (06:22)
--- NOTE | 2020-12-20 07:16 | PM.IMHP ---
H&P: HPI History of Present Illness Date/Time: 12/20/20 07:16 Chief Complaint: Blood in urine Narrative: 60-year-old male with complex past medical history including functional quadriplegia, right abhlg-izk-wmui amputation, left amoaq-lwz-ljes amputation, chronic right stump wound, recurrent C diff colitis, chronic kidney disease stage III, chronic atrial fibrillation on anticoagulation and diabetes who presented to the ER from [facility] due to hematuria. The patient was admitted to our facility twice in October and was discharged at the end of October. He evidently became ill again and was sent to [facility]. It appears at that time the patient had a recurrent episode of acute on chronic renal failure and septic shock and was on temporary dialysis with a catheter in the right upper chest that was subsequently removed. [facility] vancomycin through a right upper extremity PICC line and was continued on p.o. vancomycin for recurrent C diff. He was also discharged on p.o. Levaquin likely due to his right below-knee amputation stump site infection. It appears that he likely had debridement of his stump site wound during that hospitalization but records are not available for my review. Evidently while he was at the outside facility he must have had some issues with dysphagia as he had a G-tube placed. retirement staff states that the patient is back to a regular diet however the patient has G-tube had evidence of pills within 1 port and had the connector in place for G-tube feeds with the other port. The patient is only oriented to person and month and is a poor historian. I have seen the patient in the past and he usually answers questions extremely slow. Unfortunately the patient's brother was only able to provide limited information regarding his recent hospitalization and was not specific on exactly when the patient was in the hospital and when he last required hemodialysis. retirement staff was also only able to provide limited information. Will obtain records from outside facility. The patient has evidently been having difficulty with hematuria and they have changed his Abarca catheter at the [facility] several times over the last 2 weeks. He developed gross hematuria and developed some increasing lower abdominal pain. Pain was cramping in nature. He does not provide the severity to the abdominal pain. He also has some periumbilical abdominal pain on with palpation. He has severe suprapubic abdominal pain with palpation. In the ER the patient required extensive irrigation with a three-way Abarca catheter and his urine still remains blood tinged with CBI running. He is still been having mushy stools according to nursing staff. The patient is unsure if he is having lin diarrhea. He denies having any recent fevers. He reports does report having recent nausea with intermittent vomiting. He denies any increased shortness of breath from baseline. The patient also denies a history of obstructive sleep apnea but I know the patient from past any has active obstructive sleep apnea. He is historically noncompliant with BiPAP. He has a scab on his nose from where he would had wear BiPAP during his recent hospitalization. He has chronic buttock wounds that appear similar to prior hospitalization. His wound on his right mtwim-jvq-vcai amputation site appears better than the during his last hospitalization and most of the eschar has removed. He has a new decubitus ulcer to his right medial elbow with eschar in place. Review of Systems Review of Systems: 12 systems were reviewed with pertinent positives and negatives per HPI. Except as documented in the HPI, all other systems were reviewed and are negative. However, limited as the patient is a poor historian. [facility] Past Medical History Medical History (Updated 12/20/20 @ 08:43 by Marielle Moore, ) Atrial fibrillation On chronic antic
[2020-12-20 08:41] LABS: Basophils Percent Auto 0.3 % (0.2-1.2); Hematocrit 28.2 % (42.0-52.0); Hemoglobin 8.6 g/dL (14.0-18.0); Immature Granulocyte Absolute 0.16 K/mm3 (0.00-0.031); Immature Granulocyte Percent A 1.4 % (0-0.5); Lymphocytes Absolute Auto 0.41 K/mm3 (0.9-3.2); Lymphocytes Percent Auto 3.5 % (18.3-44.2); Mean Corpuscular HGB Conc 30.5 g/dl (32-36); Mean Corpuscular Hemoglobin 25.7 pg (26-34); Mean Corpuscular Volume 84.4 fl (80-100); Mean Platelet Volume 8.7 fl (7.4-10.4); Monocytes Absolute Auto 0.6 K/mm3 (0.1-0.6); Monocytes Percent Auto 5.3 % (2.6-8.5); Neutrophils Absolute Auto 10.6 K/mm3 (1.3-6.7); Neutrophils Percent Auto 89.5 % (45.5-73.1); Nucleated Red Blood Cells Perc 0.2 % (0.0-0.2); Platelet Count Result 179 k/mm3 (150-375); Red Blood Count 3.34 M/mm3 (4.6-6.20); Red Cell Distribution Width 18.7 % (11.5-14.5); White Blood Count 11.8 K/mm3 (4.5-10.0)
[2020-12-20 08:48] LABS: Glucose Point of Care 140 mg/dl (65-105)
[2020-12-20 08:51] LABS: Alanine Aminotransferase 15 U/L (4-50); Albumin Level 2.8 g/dL (3.5-5.1); Alkaline Phosphatase 75 U/L (38-126); Anion Gap 8 mmol/L (8-16); Aspartate Amino Transferase 23 U/L (17-59); Bilirubin,Total 0.6 mg/dL (0.2-1.3); Blood Urea Nitrogen 17 mg/dL (9-20); Calcium 7.3 mg/dL (8.4-10.2); Carbon Dioxide 24 mmol/L (22-30); Chloride 98 mmol/L (98-107); Estimated Glomerular Filt Rate > 60; Glucose 152 mg/dL (65-110); Potassium 3.7 mmol/L (3.4-5.0); Sodium 130 mmol/L (137-145)
[2020-12-20] MEDS: POVIDONE-IODINE 10% OINT 30 GM TUBE 1 APPLIC TOPICAL (09:55)
[2020-12-20] MEDS: TOLNAFTATE 1% POWDER 45 GM BTL 1 APPLIC TOPICAL ×3 (09:55→16:26)
[2020-12-20] MEDS: metroNIDAZOLE 250 MG TABLET 500 MG FEED TUBE (09:56)
[2020-12-20] MEDS: PANTOPRAZOLE 40 MG TABLET PO ×2 (09:56→22:06)
[2020-12-20] MEDS: carvediloL 12.5 MG TABLET FEED TUBE ×2 (09:56→16:26)
[2020-12-20] MEDS: PROPAFENONE HCL 150 MG TABLET 300 MG FEED TUBE (09:57)
--- NOTE | 2020-12-20 10:47 | WPDURCON ---
Assessment and Plan Assessment and plan (1) Gross hematuria: Code(s): R31.0 - Gross hematuria Status: Acute Assessment and Plan: GH possibly secondary to acute UTI in an extremely comorbid man who is being treated for C. diff. - I irrigated out a good amount of clot and now urine is clear; continue CBI and wean as able - follow urine cultures - with his c diff it may be reasonable to consult ID for recommendations once urine culture finalizes; for now he is on levofloxacin which is fine - ideally he would have a CT urogram to look for any upper tract etiologies of his GH but he won't fit in the scanner so may have to be done as an outpatient (2) Acute UTI: Code(s): N39.0 - Urinary tract infection, site not specified Status: Acute Assessment and Plan: await culture Urology Consult Note HPI Date Seen: 12/20/20 Requesting Physician: Marielle Moore DO Primary Care Provider: Beltran Reyes, Consult Narrative Narrative: Lester Nguyễn is a 60 year old male with a history of quadraplegia, b/l AKA with recent admission for stump infection s/p debridement, then got c diff, now admitted for clot retention. He is still on flagyl and PO vanc. He says this is the first episode of GH. Denies other significant urologic history. Urine looks infected, culture not back yet. Cannot get a CT secondary to patient weight. He had a renal US 11/18/20 which was unremarkable. Last cultures were royer in urine and sputum in late October. He had a shaw at that time. Creat 0.8, WBC 15. At baseline he voids into a urinal. Review of Systems Review of Systems: All systems reviewed & are unremarkable except as noted in HPI and below [facility] Past Medical History Medical History (Updated 12/20/20 @ 08:43 by Marielle Moore DO) Atrial fibrillation On chronic anticoagulation with Eliquis C. difficile colitis Chronic kidney disease, stage 3 With history of temporary dialysis in the past. Most recently November 2020 Decubital ulcer Diabetes mellitus type 2 in obese Diabetic nephropathy Hands Diastolic dysfunction Last echocardiogram March 2018 demonstrated normal EF of 65-70 with moderate LVH and severe left atrial enlargement GI bleed HTN (hypertension), malignant Hyperlipidemia Metabolic acidosis Morbid obesity Obstructive sleep apnea treated with BiPAP patient is noncompliant with his BiPAP Peripheral vascular disease Surgical History Surgical History (Updated 12/20/20 @ 07:26 by Marielle Moore DO) Gastrointestinal tube in situ History of appendectomy History of bilateral carpal tunnel release History of left above knee amputation History of right below knee amputation History of tonsillectomy and adenoidectomy Family History Family History Sibling Lung cancer Sister Hypertension Brain cancer Father Diabetes mellitus Coronary artery disease Hypertension Mother Acute myocardial infarction Other Family history of arthritis Social History Social History (Updated 12/20/20 @ 07:25 by Marielle Moore DO) Social History: The patient lived with the brother who is an over the road cement truck loader who is rarely home. I can tell the patient was still living at home until his hospitalization in late October 2020 at which time he was discharged to [facility] facility. Primary care physician: Dr. Beltran Reyes Code status: DNR/DNI Surrogate decision maker: Brother Smoking status: Never smoker Alcohol intake: never Alcohol use details: The patient only uses minimal alcohol on occasion. Substance use: never Substance use type: does not use Additional living arrangements comments: He owns his own house but his brother lives with him and helps him when needed. However his brother is an [id number] cement truck loader and is rarely home. Additional occupation/edu
--- NOTE | 2020-12-20 10:55 | W.PM.PROC2 ---
Procedure Note - Detailed Date of Procedure 12/20/20 Pre-op Diagnosis UTI, hematuria, C. difficile Post-op Diagnosis same Procedure Performed Shaw irrigation Surgeon Alejandro Lubin MD Anesthesia none Description of Procedure [address] I disconnected the tubing from the catheter. I hand irrigated 1L of sterile water. Multiple small clots were broken up and returned. At the conclusion of this the catheter irrigated freely and there were no further clots. The tubing was replaced and hooked back up to CBI, the effluent of which was clear. Disposition no change
[2020-12-20 11:20] LABS: Vancomycin Random 10.7 ug/mL (10-20)
[2020-12-20] MEDS: WATER FOR IRRIGATION, STERILE 1,000 ML BOTTLE 1000 ML (11:44)
[2020-12-20 12:28] LABS: Glucose Point of Care 207 mg/dl (65-105)
[2020-12-20] MEDS: PERFLUTREN LIPID MICROSPHERES 1.5 ML VIAL DILUTED TO 10 ML TOTAL VOLUME (12:55)
[2020-12-20] MEDS: ACETAMINOPHEN 325 MG TABLET 650 MG FEED TUBE (13:14)
[2020-12-20] MEDS: INSULIN ASPART (*BKC) 100 UNITS/ML SUB-Q ×2 (13:15→18:06)
[2020-12-20] MEDS: VANCOMYCIN HCL 2,000 MG in SODIUM CHLORIDE 0.9% IV 500 ML 250 MG IVPB (13:43)
--- NOTE | 2020-12-20 14:37 | PM.CNCAR ---
Assessment and Plan Additional Plan This is a 60-year-old man who unfortunately has a multitude of health problems. Cardiac-carl he is in chronic atrial fibrillation for about 16 years according to the records that I have been able to gather and review. I am asked to see him and provide better rate control. His heart rate is somewhat more rapid than he typically is which is probably related to his urinary infection and anemia. I can not tell why he is receiving intravenous diltiazem to treat this since he is capable swallowing medications or he we can use his feeding tube. I also have no idea why he is receiving propafenone in the setting of chronic atrial fibrillation. I am going to stop both the diltiazem IV and the propafenone and give him some oral digoxin with half a mg today and 0.25 mg starting that tomorrow. His renal function is normal he should tolerate some digoxin to provide rate control. Will follow him with you during this hospitalization. Obviously managing this situation is much more challenging since his health care has been fragmented in multiple hospitals and we have some questions that I had outlined above that we do not have records here to answer Arnav Harris MD [facility] History of Present Illness History of Present Illness Consult date/time: 12/20/20 14:38 Consult reason: atrial fibrillation Reason For Visit: UTI, hematuria, C. difficile Narrative: This is a 60-year-old patient I am seeing at the request of the hospitalist for evaluation and management of atrial fibrillation and to try to provide rate control. Patient has got a very complex medical history and has never been seen by myself for most of his medical care is a received at other hospitals he has been at [facility] in the past as well. Patient has a history of chronic atrial fibrillation for at least 15 years according to what I see in the record. 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 There are no subsequent records of him being in sinus rhythm. He is a unfortunate gentleman who is massively obese is a bilateral amputee and I believe lives in the skilled care facility. He has a chronic indwelling urinary Abarca catheter and was sent [facility] because of hematuria. The Abarca catheter was irrigated some blood clots were removed from the bladder and the device is apparently draining properly now. Since he has been in the hospital it was of course noted that he is in atrial fibrillation is heart rate is a bit rapid with heart rates of about 120-130. He has no awareness of this. He was placed on an intravenous diltiazem infusion after being admitted to the hospital despite the fact that he is able to swallow medications without any problems and also has a feeding tube. He in this setting is being seen in consultation. His laboratory data demonstrates that his renal function is normal. He is anemic with a hemoglobin of 8.6 g. There are do not resuscitate orders on this man's chart. Review of Systems Constitutional: Constitutional: Reports weakness Eyes: Eyes: Reports no additional eye complaints ENT: Reports system reviewed and no additional complaints, except as documented Cardiovascular: Cardiovascular: Reports no additional cardiovascular complaints Respiratory: Respiratory: Reports no additional respiratory complaints Gastrointestinal: Gastrointestinal: Reports diarrhea Genitourinary: Genitourinary: Reports as per HPI Comments: Chronic indwelling urinary catheter Musculoskeletal: Musculoskeletal: Reports no additional musculoskeletal complaints Integumentary/Breasts: Skin/Breast: Reports system reviewed and no additional complaints, except as docu Neurologic: Reports system reviewed and no additional complaints, except as documented Psychiatric: Psychiatric: Reports no additional psychiatric complaints Endocrine: End
[2020-12-20] MEDS: metroNIDAZOLE 500 MG/ISO 100ML 500 MG/100 ML BAG 100 MG IVPB ×2 (15:09→22:06)
[2020-12-20] MEDS: DIGOXIN 250 MCG TABLET 500 MCG PO (15:09)
[2020-12-20 16:35] LABS: Glucose Point of Care 236 mg/dl (65-105)
[2020-12-20 20:08] LABS: Glucose Point of Care 302 mg/dl (65-105)
[2020-12-20] MEDS: INSULIN GLARGINE (*BKC) 100 UNITS/ML 25 UNITS SUB-Q (22:06)
[2020-12-20] MEDS: FIDAXOMICIN 200 MG TABLET FEED TUBE (22:06)
[2020-12-21] VITALS (18 sets, daily range): BP systolic 111–155; BP diastolic 52–63; PULSE 92–133; RESP 14–22; TEMP 36.6–38.7; O2SAT 98–100
[2020-12-21] MEDS: IBUPROFEN IV 400 MG in SODIUM CHLORIDE 0.9% IV 100 ML 200 MG IVPB (01:21)
[2020-12-21] MEDS: VANCOMYCIN HCL 2,000 MG in SODIUM CHLORIDE 0.9% IV 500 ML 250 MG IVPB ×2 (01:21→14:20)
[2020-12-21] MEDS: SODIUM CHLORIDE 0.9% IV 1,000 ML 100 ML IV CONT (01:32)
[2020-12-21] MEDS: metroNIDAZOLE 500 MG/ISO 100ML 500 MG/100 ML BAG 100 MG IVPB ×3 (05:29→21:00)
[2020-12-21 06:17] LABS: Basophils Percent Auto 0.3 % (0.2-1.2); Hematocrit 27.2 % (42.0-52.0); Hemoglobin 8.3 g/dL (14.0-18.0); Immature Granulocyte Percent A 1.3 % (0-0.5); Lymphocytes Absolute Auto 0.73 K/mm3 (0.9-3.2); Lymphocytes Percent Auto 9.7 % (18.3-44.2); Mean Corpuscular HGB Conc 30.5 g/dl (32-36); Mean Corpuscular Volume 85.3 fl (80-100); Mean Platelet Volume 8.7 fl (7.4-10.4); Monocytes Absolute Auto 0.5 K/mm3 (0.1-0.6); Monocytes Percent Auto 7.2 % (2.6-8.5); Neutrophils Absolute Auto 6.1 K/mm3 (1.3-6.7); Neutrophils Percent Auto 81.5 % (45.5-73.1); Platelet Count Result 153 k/mm3 (150-375); Red Blood Count 3.19 M/mm3 (4.6-6.20); Red Cell Distribution Width 18.7 % (11.5-14.5); White Blood Count 7.5 K/mm3 (4.5-10.0)
[2020-12-21 06:39] LABS: Anion Gap 10 mmol/L (8-16); Blood Urea Nitrogen 18 mg/dL (9-20); Calcium 7.2 mg/dL (8.4-10.2); Carbon Dioxide 21 mmol/L (22-30); Chloride 103 mmol/L (98-107); Estimated CRCL calculation 97 ml/min; Estimated Glomerular Filt Rate > 60; Glucose 248 mg/dL (65-110); Potassium 3.3 mmol/L (3.4-5.0); Sodium 134 mmol/L (137-145)
[2020-12-21 08:13] LABS: Glucose Point of Care 247 mg/dl (65-105)
[2020-12-21] MEDS: POVIDONE-IODINE 10% OINT 30 GM TUBE 1 APPLIC TOPICAL (09:00)
--- NOTE | 2020-12-21 09:55 | WPDUROPN2 ---
Progress Note: A&P Assessment and Plan (1) Gross hematuria: Code(s): R31.0 - Gross hematuria Status: Acute Assessment and Plan: GH possibly secondary to acute UTI in an extremely comorbid man who is being treated for C. diff. - does not need abx for urinary source as culture negative - etiology of GH still unclear; will need outpatient workup - he would like to keep the shaw in until other issues are resolved e.g. arm weakness; when he is ready for DC he can have a void trial; otherwise can continue to wean CBI off (2) Acute UTI: Code(s): N39.0 - Urinary tract infection, site not specified Status: Acute Assessment and Plan: await culture Subjective Subjective Date/Time Seen: 12/21/20 09:55 urine clear yellow off CBI; is now having issues with N/V and says his b/l UE aren't working as well as they usually do culture negative Review of Systems Review of Systems: All systems reviewed & are unremarkable except as noted in HPI and below Exam Narrative: morbidly obese, alert and oriented, flat affect but pleasant, b/l AKA, 18F [address] draining clear yellow urine Objective Data Vital Signs Vital Signs: Vital Signs - 24 hr 12/20/20 09:56 12/20/20 09:57 12/20/20 10:00 Temperature Pulse Rate 107 H 107 H 115 H Respiratory Rate Blood Pressure Pulse Oximetry 12/20/20 12:00 12/20/20 12:46 12/20/20 13:14 Temperature 39.3 C H 39.3 C H Pulse Rate 118 H 118 H Respiratory Rate 24 H Blood Pressure 136/48 L Pulse Oximetry 97 12/20/20 14:00 12/20/20 15:09 12/20/20 15:10 Temperature 38.8 C H Pulse Rate 124 H 131 H Respiratory Rate Blood Pressure Pulse Oximetry 12/20/20 16:00 12/20/20 16:26 12/20/20 16:56 Temperature 38.6 C H Pulse Rate 131 H 125 H 121 H Respiratory Rate 24 H Blood Pressure 143/71 H Pulse Oximetry 97 12/20/20 18:00 12/20/20 20:00 12/20/20 22:00 Temperature 38.2 C H Pulse Rate 122 H 123 H 128 H Respiratory Rate 24 H Blood Pressure 124/44 L Pulse Oximetry 97 12/20/20 22:18 12/20/20 23:56 12/21/20 00:00 Temperature 38.2 C H 38.7 C H 38.7 C H Pulse Rate 133 H Respiratory Rate 22 H Blood Pressure 111/63 Pulse Oximetry 98 12/21/20 01:21 12/21/20 02:00 12/21/20 02:12 Temperature 38.7 C H 37.0 C Pulse Rate 122 H Respiratory Rate Blood Pressure Pulse Oximetry 12/21/20 02:21 12/21/20 04:00 12/21/20 06:00 Temperature 37.0 C 37.1 C Pulse Rate 124 H 117 H Respiratory Rate 20 Blood Pressure 115/54 L Pulse Oximetry 98 12/21/20 08:00 Temperature 36.6 C Pulse Rate 103 H Respiratory Rate 14 Blood Pressure 124/54 L Pulse Oximetry 100 Intake/Output Intake/Output: Intake & Output 12/18/20 12/19/20 12/20/20 12/21/20 23:59 23:59 23:59 23:59 Intake Total 3350 924 Output Total 1190 4200 Balance 2160 -3276 Meds/Results Medications: Active Medications Generic Name Dose Route Start Last Admin Trade Name Freq PRN Reason Stop Dose Admin Hydrocodone Bitart/Acetaminophen 1 tab 12/20/20 05:20 Hydrocodone/Acetaminophen (*Crx) 5-325 Mg Tablet FEED TUBE Q6H PRN Pain 4-10 Carvedilol 12.5 mg 12/20/20 08:00 12/20/20 16:26 Carvedilol 12.5 Mg Tablet FEED TUBE 12.5 mg BIDWM FAROOQ Administration Dextrose 12.5 gm 12/20/20 05:22 Dextrose 50% 25 Gm/50 Ml Syringe IV PUSH PRN PRN Hypoglycemia Protocol Digoxin 250 mcg 12/21/20 09:00 Digoxin 250 Mcg Tablet PO QAM FAROOQ Ergocalciferol 50,000 unit 12/23/20 09:00 Ergocalciferol 50,000 Unit Capsule FEED TUBE WEEKLY FAROOQ Fidaxomicin 200 mg 12/20/20 21:00 12/20/20 22:06 Fidaxomicin 200 Mg Tablet FEED TUBE 12/30/20 21:01 200 mg Q12HR FAROOQ Administration Glucagon 1 mg 12/20/20 05:22 Glucagon For Inj 1 Mg Vial IM PRN PRN Hypoglycemia Protocol Glucose 15 gm 12/20/20 05:22 Glucose Oral Gel 15 Gm
[2020-12-21] MEDS: INSULIN ASPART (*BKC) 100 UNITS/ML SUB-Q ×3 (09:58→17:40)
[2020-12-21] MEDS: carvediloL 12.5 MG TABLET FEED TUBE ×2 (09:59→17:40)
[2020-12-21] MEDS: PANTOPRAZOLE 40 MG TABLET PO ×2 (10:00→20:48)
[2020-12-21] MEDS: FIDAXOMICIN 200 MG TABLET FEED TUBE ×2 (10:00→20:47)
[2020-12-21] MEDS: DIGOXIN 250 MCG TABLET PO (10:00)
[2020-12-21] MEDS: TOLNAFTATE 1% POWDER 45 GM BTL 1 APPLIC TOPICAL ×3 (10:01→17:13)
--- NOTE | 2020-12-21 11:34 | PM.PNCARD ---
Progress Note: A&P Additional Plan 60-year-old man with morbid obesity, double amputee with chronic atrial fibrillation admitted to the hospital with hematuria that was resolved with bladder/Abarca catheter irrigation. I was consulted to see him for age fib with RVR. He was asymptomatic of this. With addition of some digoxin heart rate control is more reasonable. No additional cardiac suggestions at this time. Arnav Harris MD [facility] Subjective Date/time seen: Date of service: 12/21/20 11:34 Interval history: Follow-up visit in this 60-year-old man with: Chronic atrial fibrillation patient admitted to the hospital for treatment of gross hematuria in the setting of a chronic indwelling Abarca catheter. This has been resolved by urology pci security consultant. Because of the urinary infection and concurrent anemia he was in a state of moderately rapid ventricular response although he was largely asymptomatic of this. As his renal function is normal I added a standard dose of digoxin he seems to have responded to that well heart rate is in the 90s at bed rest this morning. Patient appears to be asymptomatic with respect to his arrhythmia. As I mentioned in the consult note he has had atrial fibrillation for about 16 years. Exam Const: General: comfortable and no acute distress Other: Massively obese man in bed rest no distress HENMT: Mouth: Yes moist mucous membranes Eyes: Sclera: sclerae normal Pupils: Equal, round and reactive pupils present Neck: Neck: supple and no JVD Resp: Effort & Inspection: normal respiratory effort Auscultation: clear to auscultation bilaterally Cardio: Other: PMI not palpable irregularly irregular rhythm GI: GI Palp: Yes Soft to palpation Auscultation: normal bowel sounds Neuro: Cognition (Neuro): normal cognition Extrem: Other: Double amputee Objective Data Vital Signs Vital Signs: Vital Signs - 24 hr 12/20/20 12:00 12/20/20 12:46 12/20/20 13:14 Temperature 39.3 C H 39.3 C H Pulse Rate 118 H 118 H Respiratory Rate 24 H Blood Pressure 136/48 L Pulse Oximetry 97 12/20/20 14:00 12/20/20 15:09 12/20/20 15:10 Temperature 38.8 C H Pulse Rate 124 H 131 H Respiratory Rate Blood Pressure Pulse Oximetry 12/20/20 16:00 12/20/20 16:26 12/20/20 16:56 Temperature 38.6 C H Pulse Rate 131 H 125 H 121 H Respiratory Rate 24 H Blood Pressure 143/71 H Pulse Oximetry 97 12/20/20 18:00 12/20/20 20:00 12/20/20 22:00 Temperature 38.2 C H Pulse Rate 122 H 123 H 128 H Respiratory Rate 24 H Blood Pressure 124/44 L Pulse Oximetry 97 12/20/20 22:18 12/20/20 23:56 12/21/20 00:00 Temperature 38.2 C H 38.7 C H 38.7 C H Pulse Rate 133 H Respiratory Rate 22 H Blood Pressure 111/63 Pulse Oximetry 98 12/21/20 01:21 12/21/20 02:00 12/21/20 02:12 Temperature 38.7 C H 37.0 C Pulse Rate 122 H Respiratory Rate Blood Pressure Pulse Oximetry 12/21/20 02:21 12/21/20 04:00 12/21/20 06:00 Temperature 37.0 C 37.1 C Pulse Rate 124 H 117 H Respiratory Rate 20 Blood Pressure 115/54 L Pulse Oximetry 98 12/21/20 08:00 12/21/20 09:59 12/21/20 10:00 Temperature 36.6 C Pulse Rate 103 H 92 97 Respiratory Rate 14 Blood Pressure 124/54 L Pulse Oximetry 100 Intake/Output Intake/Output: Intake & Output 12/18/20 12/19/20 12/20/20 12/21/20 23:59 23:59 23:59 23:59 Intake Total 3350 924 Output Total 1190 4200 Balance 2160 -8106 Meds/Results Medications: Active Medications Generic Name Dose Route Start Last Admin Trade Name Freq PRN Reason Stop Dose Admin Hydrocodone Bitart/Acetaminophen 1 tab 12/20/20 05:20 Hydrocodone/Acetaminophen (*Crx) 5-325 Mg Tablet FEED TUBE Q6H PRN Pain 4-10 Carvedilol 12.5 mg 12/20/20 08:00 12/21/20 09:59 Carvedilol 12.5 Mg Tablet FEED TUBE 12.5 mg BIDWM FAROOQ Administration Dextrose 12.5 gm 12/20/20 05:22 Dextrose 50% 25 Gm/50 Ml Syri
[2020-12-21 11:42] LABS: Glucose Point of Care 332 mg/dl (65-105)
[2020-12-21] MEDS: HYDROcodone/acetaminophen (*CRX) 5-325 MG TABLET 1 TAB FEED TUBE (15:32)
[2020-12-21 16:05] LABS: Glucose Point of Care 329 mg/dl (65-105)
[2020-12-21] MEDS: SODIUM CHLORIDE 0.9% IV 1,000 ML 75 ML IV CONT (17:13)
--- NOTE | 2020-12-21 17:15 | PM.IMPN ---
Progress Note: A&P Assessment and Plan (1) Chronic atrial fibrillation with RVR: Code(s): I48.20 - Chronic atrial fibrillation, unspecified Status: Acute (2) Gross hematuria: Code(s): R31.0 - Gross hematuria Status: Acute (3) Acute UTI: Code(s): N39.0 - Urinary tract infection, site not specified Status: Acute (4) C. difficile colitis: Code(s): A04.72 - Enterocolitis due to Clostridium difficile, not specified as recurrent Status: Acute (5) Functional quadriplegia: Code(s): R53.2 - Functional quadriplegia Status: Acute Additional Plan The patient has chronic atrial fibrillation with acute AFib RVR. Will continue patient's home metoprolol. Will add Cardizem push with Cardizem drip. Will consult Cardiology. Patient's Eliquis is on hold due to gross hematuria. The patient has gross hematuria with 2+ leukocyte Estrace and trace bacteria. UA could be consistent with UTI. The patient was already on Levaquin and IV vancomycin for his chronic leg wound/decubitus wound and is on oral vancomycin and p.o. Flagyl due to his persistent C diff colitis. Will continue IV vancomycin and switch Levaquin to IV. Will check urine culture. Will monitor urine culture and adjust antibiotics as indicated. Depending on patient's clinical course remain the to the discussed antibiotic regimen with Infectious Disease physician. 12/20/20 Given the patient's chronic and numerous decubitus wounds wound Care has been consulted for eval for surgical debridment. Continue vancomycin Zosyn Day 2 Diflucan Day 1 x bacteremia and infected decubitus ulcer +c diff on fidaxomicin and flagyl pt on double coverage w above abx w consult dr pardo for recommendations cont current care for now KUB for PEG placement confirmation antepyretics PRN Subjective Date/time seen: 12/21/20 17:15 pt feeling ok but not significantly better, we discuss his code status and he confirms he is DNR. pt w aware he had + blood culture and we will be consulting ID for assistance w abx election Exam Narrative: General: Chronically ill-appearing, morbidly obese, no acute distress HEENT: MMM Respiratory: symmetric chest rise, no increased work of breathing Cardiovascular: Irregularly irregular, tachycardic, 2+ bilateral radial pulses Gastrointestinal: Obese, soft, marked, PEG Skin: large ulcer to the base of the right [id number] amputation site stump, small ulceration to the left medial elbow slightly smaller than a quarter with black eschar at the center, wound to the base of the skull at the top of the neck is small in nature, several large somewhat contiguous decubitus ulcers of the buttocks and sacrum with approximately 1/4 of the buttocks covered with eschar, scabbed near the right clavicle his distant with recent tunneled catheter, scab over the bridge of the nose Musculoskeletal: Left above the knee amputation, right [id number] amputation Neurological: Alert and oriented to person place and month, slowed responses, functional quadriplegia with severe weakness of upper extremities, with 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 tapping machine 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 automatic strength Psychiatric: Flat affect, cooperative : 3 way Abarca catheter in place Objective Data Vital Signs Vital Signs: Vital Signs - 24 hr 12/20/20 18:00 12/20/20 20:00 12/20/20 22:00 Temperature 100.8 F H Pulse Rate 122 H 123 H 128 H Respiratory Rate 24 H Blood Pressure 124/44 L Pulse Oximetry 97 12/20/20 22:18 12/20/20 23:56 12/21/20 00:00 Temperature 100.8 F H 101.7 F H 101.7 F H Pulse Rate 133 H Respiratory Rate 22 H Blood Pressure 111/63 Pulse Oximetry 98 12/21/20 01:21 12/21/20 02:00 12/21/20 02:12 Temperature 101.7 F H 98.6 F Pulse Rate 122 H Respiratory Rate Blood Pressure Pulse Oximetry 12/21/20 02:21 12/21/20 04:00 12/21/20 06:00 Temperature 98.6 F 98.7 F Pulse Rate 124 H 117 H Respiratory Rate 20 Blood Pressure 115/54 L Pulse O
[2020-12-21] MEDS: INSULIN GLARGINE (*BKC) 100 UNITS/ML 25 UNITS SUB-Q (20:47)
[2020-12-21 20:52] LABS: Glucose Point of Care 370 mg/dl (65-105)
[2020-12-21 21:03] LABS: Glucose Point of Care 343 mg/dl (65-105)
[2020-12-21 23:42] LABS: Vancomycin Trough 31.4 ug/mL (10.0-20.0)
[2020-12-22] VITALS (16 sets, daily range): BP systolic 114–141; BP diastolic 45–64; PULSE 72–106; RESP 12–24; TEMP 36.6–37.3; O2SAT 90–100; BMI 47.0
[2020-12-22 06:28] LABS: Basophils Percent Auto 0.3 % (0.2-1.2); Eosinophils Percent Auto 0.2 % (0-4.4); Hematocrit 25.4 % (42.0-52.0); Hemoglobin 7.7 g/dL (14.0-18.0); Immature Granulocyte Absolute 0.06 K/mm3 (0.00-0.031); Lymphocytes Absolute Auto 0.86 K/mm3 (0.9-3.2); Lymphocytes Percent Auto 13.7 % (18.3-44.2); Mean Corpuscular HGB Conc 30.3 g/dl (32-36); Mean Corpuscular Hemoglobin 25.9 pg (26-34); Mean Corpuscular Volume 85.5 fl (80-100); Mean Platelet Volume 8.9 fl (7.4-10.4); Monocytes Absolute Auto 0.7 K/mm3 (0.1-0.6); Monocytes Percent Auto 11.8 % (2.6-8.5); Neutrophils Absolute Auto 4.6 K/mm3 (1.3-6.7); Platelet Count Result 137 k/mm3 (150-375); Red Blood Count 2.97 M/mm3 (4.6-6.20); Red Cell Distribution Width 18.9 % (11.5-14.5); White Blood Count 6.3 K/mm3 (4.5-10.0)
[2020-12-22] MEDS: metroNIDAZOLE 500 MG/ISO 100ML 500 MG/100 ML BAG 100 MG IVPB (06:54)
[2020-12-22 07:09] LABS: Alanine Aminotransferase 20 U/L (4-50); Albumin Level 2.6 g/dL (3.5-5.1); Alkaline Phosphatase 58 U/L (38-126); Anion Gap 9 mmol/L (8-16); Aspartate Amino Transferase 34 U/L (17-59); Bilirubin,Total 0.3 mg/dL (0.2-1.3); Blood Urea Nitrogen 18 mg/dL (9-20); Calcium 7.1 mg/dL (8.4-10.2); Carbon Dioxide 22 mmol/L (22-30); Chloride 101 mmol/L (98-107); Estimated CRCL calculation 107 ml/min; Estimated Glomerular Filt Rate > 60; Glucose 235 mg/dL (65-110); Magnesium 1.8 mg/dL (1.6-2.3); Phosphorus 3.6 mg/dL (2.5-4.5); Potassium 2.7 mmol/L (3.4-5.0); Sodium 132 mmol/L (137-145)
[2020-12-22 08:14] LABS: Glucose Point of Care 217 mg/dl (65-105)
[2020-12-22] MEDS: INSULIN ASPART (*BKC) 100 UNITS/ML SUB-Q ×3 (09:12→17:33)
[2020-12-22] MEDS: POTASSIUM CHLORIDE 20 MEQ PACKET (FOR LIQUID) 40 MEQ PO ×2 (09:14→09:16)
[2020-12-22] MEDS: carvediloL 12.5 MG TABLET FEED TUBE ×2 (09:14→17:34)
[2020-12-22] MEDS: DIGOXIN 250 MCG TABLET PO (09:15)
[2020-12-22] MEDS: PANTOPRAZOLE 40 MG TABLET PO ×2 (09:16→20:46)
[2020-12-22] MEDS: FIDAXOMICIN 200 MG TABLET FEED TUBE (09:16)
[2020-12-22] MEDS: FLUCONAZOLE 200 MG/NACL 100 ML 200 MG/100 ML BAG 100 MG IVPB (09:20)
[2020-12-22] MEDS: SODIUM CHLORIDE 0.9% IV 1,000 ML 75 ML IV CONT (09:26)
--- NOTE | 2020-12-22 11:16 | WPDINFPN2 ---
Progress Note: A&P Assessment and Plan (1) Gross hematuria: Code(s): R31.0 - Gross hematuria Status: Acute Assessment and Plan: 1. Hematuria, culture negative, chronic catheter 2. CNSS and C glabrata BSI, PICC source 3. Decubitus ulcer with possible OM of coccyx 4. Recurrent C diff colitis, not active. REC Vanc has been given, and begin Micafungin. Due to iatrogenic C diff potential relapse, prefer to avoid antibacterials unless required. As the ulcer itself is not clearly infected, will not treat for potential OM until surgical plan (if any) is established. Pull PICC. Hold fidaxomicin. Subjective Date/time seen: 12/22/20 11:16 Objective Data Vital Signs Vital Signs: Vital Signs - 24 hr 12/21/20 11:46 12/21/20 12:00 12/21/20 14:00 Temperature 36.6 C Pulse Rate 103 H 111 H 106 H Respiratory Rate 16 Blood Pressure 146/60 H Pulse Oximetry 100 12/21/20 16:00 12/21/20 17:40 12/21/20 18:00 Temperature 36.6 C Pulse Rate 96 96 101 H Respiratory Rate 16 Blood Pressure 130/52 L Pulse Oximetry 99 12/21/20 20:00 12/21/20 22:00 12/22/20 00:00 Temperature 36.8 C 37.2 C Pulse Rate 96 98 106 H Respiratory Rate 16 20 Blood Pressure 155/52 H 125/53 L Pulse Oximetry 100 98 12/22/20 02:00 12/22/20 04:00 12/22/20 06:00 Temperature 37.2 C Pulse Rate 96 94 98 Respiratory Rate 24 H Blood Pressure 122/48 L Pulse Oximetry 100 12/22/20 08:00 12/22/20 09:14 12/22/20 09:15 Temperature 36.8 C Pulse Rate 90 96 96 Respiratory Rate 18 Blood Pressure 141/56 H Pulse Oximetry 99 Intake/Output Intake/Output: Intake & Output 12/19/20 12/20/20 12/21/20 12/22/20 23:59 23:59 23:59 23:59 Intake Total 3350 4884 2020 Output Total 1190 40524 1050 Balance 2160 -5700 970 Meds/Results Medications: Active Medications Generic Name Dose Route Start Last Admin Trade Name Freq PRN Reason Stop Dose Admin Hydrocodone Bitart/Acetaminophen 1 tab 12/20/20 05:20 12/21/20 15:32 Hydrocodone/Acetaminophen (*Crx) 5-325 Mg Tablet FEED TUBE 1 tab Q6H PRN Administration Pain 4-10 Carvedilol 12.5 mg 12/20/20 08:00 12/22/20 09:14 Carvedilol 12.5 Mg Tablet FEED TUBE 12.5 mg BIDWM FAROOQ Administration Dextrose 12.5 gm 12/20/20 05:22 Dextrose 50% 25 Gm/50 Ml Syringe IV PUSH PRN PRN Hypoglycemia Protocol Digoxin 250 mcg 12/21/20 09:00 12/22/20 09:15 Digoxin 250 Mcg Tablet PO 250 mcg QAM FAROOQ Administration Ergocalciferol 50,000 unit 12/23/20 09:00 Ergocalciferol 50,000 Unit Capsule FEED TUBE WEEKLY FAROOQ Glucagon 1 mg 12/20/20 05:22 Glucagon For Inj 1 Mg Vial IM PRN PRN Hypoglycemia Protocol Glucose 15 gm 12/20/20 05:22 Glucose Oral Gel 15 Gm Of Glucse In 37.5 Gm Tube PO PRN PRN Hypoglycemia Protocol Sodium Chloride 1,000 mls @ 75 mls/hr 12/20/20 01:10 12/22/20 09:26 Normal Saline Iv IV CONT 75 mls/hr .[id number] FAROOQ Administration Dextrose 1,000 mls @ 100 mls/hr 12/20/20 05:22 Dextrose 5% 1,000 Ml IVPB PRN PRN Hypoglycemia Protocol Acetaminophen 1,000 mg in 100 mls @ 400 mls/hr 12/20/20 18:00 12/20/20 22:33 Ofirmev 1,000 Mg Ivpb IVPB Infused Q6HR PRN Infusion Fever > 100.4 Micafungin Sodium 100 mg/ 100 mls @ 100 mls/hr 12/22/20 11:00 Sodium Chloride IVPB DAILY [facility] Insulin Aspart 30 units 12/20/20 08:00 12/20/20 16:35 Insulin Aspart (*Bkc) 100 Units/Ml SUB-Q 01/19/21 08:01 Not Given TIDWM [facility] Insulin Aspart 3 - 6 units 12/20/20 18:00 12/22/20 09:12 Insulin Aspart (*Bkc) 100 Units/Ml SUB-Q 3 units TIDWM [facility] Administration Protocol Insulin Glargine 50 units 12/20/20 09:00 12/20/20 14:22 Insulin Glargine (*Bkc) 100 Units/Ml SUB-Q Not Given BID [facility] Insulin Glargine 25 units 12/20/20 21:00 12/21/20 20:47 Insulin Glargine (*Bkc) 100 Units/Ml SUB-Q 25 units [facility]
[2020-12-22 11:37] LABS: Glucose Point of Care 296 mg/dl (65-105)
[2020-12-22 12:22] LABS: CRP 15.2 mg/dL (<1.0)
[2020-12-22] MEDS: TOLNAFTATE 1% POWDER 45 GM BTL 1 APPLIC TOPICAL ×3 (12:51→20:47)
--- NOTE | 2020-12-22 13:06 | PM.CNGS ---
Assessment and Plan Assessment and plan (1) Sacral decubitus ulcer: Code(s): L89.159 - Pressure ulcer of sacral region, unspecified stage Status: Acute Assessment and Plan: Large chronic sacral decubitus ulcer that now extends to bone with undermining and a large amount of necrotic tissue. Due to the size, extent, and location of this wound, he will need to go to the OR for adequate debridement. We will plan on proceeding with excisional debridement of the sacral decubitus ulcer in the OR by Dr. Houston tomorrow. Description of the procedure, risks, benefits, expected outcomes, and expected recovery were discussed with the patient and his brother (via telephone with the patient's permission) in detail. All questions were answered. They agree to proceed. Will make him NPO after midnight. Discussed with the patient and his brother as well that this will require long-term wound care and monitoring. Will initiate Dakin's solution dressing changes today. Continue frequent turning/repositioning and will initiate specialty mattress. (2) Amputation stump necrosis: Code(s): T87.50 - Necrosis of amputation stump, unspecified extremity Status: Acute Assessment and Plan: Right BKA stump wound with two areas of necrotic tissue. This does not appear infected and there is no surrounding cellulitis, although the larger of the two necrotic areas would benefit from debridement. Will plan on surgical debridement of the right BKA stump wound during the debridement of his sacral decubitus as outlined above. (3) Gross hematuria: Code(s): R31.0 - Gross hematuria Status: Acute Assessment and Plan: Resolved. Urology following. 3-way irrigating urinary catheter in place. ID consulted and feels this is more likely due to trauma from catheterizations, no UTI. (4) Chronic atrial fibrillation with RVR: Code(s): I48.20 - Chronic atrial fibrillation, unspecified Status: Acute (5) Fungemia: Code(s): B49 - Unspecified mycosis Status: Acute Assessment and Plan: Polymicrobial blood stream infection with coag negative staphylococcus and royer glabrata. ID following. Recommending to avoid unnecessary antibiotics due to recurrent C.Diff and high risk of relapse. On IV Zosyn and started on IV micafungin, and ID would consider longer course of broad-spectrum IV antibiotics if acute osteomyelitis is suspected. 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 Houston. History of Present Illness Consult details Consult date: 12/22/20 Reason for consult: wound care (Large sacral decubitus ulcer) Requesting physician: Jabier Quinones MD Narrative: This is a 60-year-old morbidly obese male who presented to the ER from the shelter [facility] for evaluation of gross hematuria. 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 The patient is a poor historian, and therefore majority of his history is obtained from review of the electronic medical record. He has had multiple frequent hospitalization at [facility] and other hospitals in the past. There has been two recen
--- NOTE | 2020-12-22 13:19 | PM.IMPN ---
Progress Note: A&P Assessment and Plan (1) Fungemia: Code(s): B49 - Unspecified mycosis Status: Acute Assessment and Plan: Simran glabrata growing in blood. By far, most likely etiology would be inoculation into the blood stream from open wound Continue IV micafungin, daily. Follow results of echocardiogram. Repeat daily blood cultures. Currently no signs of sepsis: No fevers or chills, white count is 6.3, and blood pressure is stable. Continue to monitor closely. Id on consult, appreciate recommendations. (2) Osteomyelitis: Code(s): M86.9 - Osteomyelitis, unspecified Status: Acute Assessment and Plan: Concern for osteomyelitis based on the fact that physical exam shows sacral ulcer is palpable to bone; however as ID noted, ulcer not clearly infected, and will avoid antibacterials unless required, as patient has multiple C diff infections in the last few years. Pull PICC line Hold Fidaxomicin. Consulted surgery to help with debridement. Wound culture ordered, to help keep antibiotics narrow. Id on consult, appreciate recommendations. (3) Chronic atrial fibrillation with RVR: Code(s): I48.20 - Chronic atrial fibrillation, unspecified Status: Acute Assessment and Plan: Hold anticoagulation in setting of acute hematuria. Cardiology on board and recommending Coreg and digoxin, will continue (4) Gross hematuria: Code(s): R31.0 - Gross hematuria Status: Acute Assessment and Plan: Has undergone irrigation of Abarca with Urology. Would ideally require CT urogram, however as noted by Urology, habitus would preclude undergoing this test at this facility. Will likely have to be done as an outpatient. Right now, Abarca bag looks completely yellow, no real evidence of blood, and certainly no clots today so far. (5) Acute UTI: Code(s): N39.0 - Urinary tract infection, site not specified Status: Acute Assessment and Plan: Possible cause of hematuria. No growth in urine, will complete empiric UTI therapy, current covered by Zosyn. (6) Diabetes: Code(s): E11.9 - Type 2 diabetes mellitus without complications Status: Acute Assessment and Plan: Morbidly obese, continue insulin therapy with 25 basal Lantus, and sliding scale. Subjective Date/time seen: 12/22/20 13:19 Patient seen lying in bed, breathing on room air. Denied having any acute chest or abdominal pain, or having any subjective shortness of breath. Per patient, no fevers or chills. Actually, he states he feels normal. Review of Systems Review of Systems: All systems reviewed & are unremarkable except as noted in HPI and below Exam Neck: Neck: no JVD Resp: Effort & Inspection: normal respiratory effort Auscultation: clear to auscultation bilaterally Cardio: Rate: abnormal rate Rhythm: abnormal rhythm GI: Other: Feeding tube in place : Other: Abarca in place Objective Data Vital Signs Vital Signs: Vital Signs - 24 hr 12/21/20 14:00 12/21/20 16:00 12/21/20 17:40 Temperature 97.8 F Pulse Rate 106 H 96 96 Respiratory Rate 16 Blood Pressure 130/52 L Pulse Oximetry 99 12/21/20 18:00 12/21/20 20:00 12/21/20 22:00 Temperature 98.2 F Pulse Rate 101 H 96 98 Respiratory Rate 16 Blood Pressure 155/52 H Pulse Oximetry 100 12/22/20 00:00 12/22/20 02:00 12/22/20 04:00 Temperature 99 F 99 F Pulse Rate 106 H 96 94 Respiratory Rate 20 24 H Blood Pressure 125/53 L 122/48 L Pulse Oximetry 98 100 12/22/20 06:00 12/22/20 08:00 12/22/20 09:14 Temperature 98.2 F Pulse Rate 98 90 96 Respiratory Rate 18 Blood Pressure 141/56 H Pulse Oximetry 99 12/22/20 09:15 12/22/20 11:43 Temperature 98.3 F Pulse Rate 96 86 Respiratory Rate 12 Blood Pressure 121/51 L Pulse Oximetry 100 Intake/Output Intake/Output: Intake & Output 12/19/20 12/20/20 12/21/20 12/22/20 23:59 23:59 23:59 23:59 Intake Tot
--- NOTE | 2020-12-22 13:48 | CONS_ITS ---
DATE OF CONSULTATION: 12/22/2020 REASON FOR CONSULTATION: Decubitus ulcer. HISTORY OF PRESENT ILLNESS: 60-year-old male who is known to me from last month. He had recurrent C difficile infection at that time, also infected and necrotic right BKA wound. He was treated with piperacillin tazobactam here and later changed to levofloxacin. He was transferred to [facility] and may have had debridement of the stump at that location. He then was sent to his correction with a Abarca catheter in place. There apparently was malfunction of the catheter as they tried to change it and he was sent here 2 days ago with gross hematuria. He denies any ongoing diarrhea, though his bowel movements are soft. He denies fever, chills, or sweats. At the outside hospital, he received 2 dialysis sessions via a percutaneous hemodialysis catheter right upper chest, now removed. He has a right upper extremity PICC, dwell time is unknown, but correction records available indicate he was started on IV vancomycin 2 days prior to admission, indication not available. The patient reports to me that his PICC was placed on arrival here. He has not required any surgical intervention while here. He has been on a variety of antimicrobials including piperacillin, IV vancomycin, fidaxomicin, metronidazole, and now fluconazole as well. ALLERGIES: MEPERIDINE. HABITS: Minimal alcohol. No tobacco. No illicit drugs. PRESENT MEDICATIONS: No immunosuppressants. PAST MEDICAL HISTORY: In addition to the above, tonsillectomy, left AKA, carpal tunnel surgery, appendectomy, G-tube, peripheral vascular disease, DARIN, morbid obesity, hyperlipidemia, hypertension, GI hemorrhage, diastolic dysfunction, diabetes mellitus with nephropathy stage III, and AF. SOCIAL HISTORY: No family at the bedside. He is living in his own home with his brother. 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 REVIEW OF SYSTEMS: Limited by the patient's memory. A 14-point review otherwise negative. FAMILY HISTORY: Not pertinent to his present illness. PHYSICAL EXAMINATION: GENERAL: Middle-aged male who appears older than his actual age. No respiratory distress. SKIN: Warm and dry. He has healing partial-thickness ulcers over the posterior neck and the nasal bridge consistent with PPV mask. He has no rashes. He has a 15 cm sacral decubitus ulcer with areas of eschar and slough. There is tunneling and a central area that extends deep. He also has undermining. He has partial-thickness ulcers over the right BKA stump. No necrosis. NODES: No cervical adenopathy. EENT: The pupils equal, round, reactive to light. The oropharynx. Oral mucosa normal. NECK: No masses, thyromegaly or meningismus. LUNGS: Clear to auscultation and percussion. CHEST: Old dialysis catheter site normal to inspection, though not healed. CARDIAC: Regular rate and rhythm, 141/56, 90, 18, 99% on room air. On arrival, his temperature was 37.3, but debbie later that day up to 39.3. ABDOMEN: Morbidly obese, nontender. No masses. No organomegaly. : Abarca catheter draining clear yellow urine. No sediment. EXTREMITIES: See above. No proximal erythema. LABORATORY DATA: Blood cultures 1 set, coagulase-negative Staph, another set Simran glabrata. Urine culture, no pathogens. Urine culture from 11/16, Simran albicans. His urinalysis results reviewed in full. His white count on arrival 15.6 and 11.8, now normalized. Hemoglobin 7.7 which is down a point. Platelets are 137. Differential with a left shift. He has hyponatremia, hypokalemia. Glucose 217, was 302 earlier. No hypoglycemia. His liver function tests normal except for an albumin 2.6. Vancomycin trough level 31. RADIOLOGY: Chest x-ray, no confluent infiltrates. KUB, PEG placement.
--- NOTE | 2020-12-22 14:55 | WPDANESEPPF ---
Anes - Initial Pre Proc Eval Procedure: Operation Date: 12/23/20 13:30 Proposed Procedures p Sacral Decubitus Ulcer Debridement - Milton Houston DO s Debridement Right Below Knee Amputation Stump - Milton Houston DO Date/Time: 12/22/20 14:55 Surgeon: Marielle Moore DO Pre Op Diagnosis: bacteremia, UTI, sepsis Patient Data Age: 60 Gender: M Height: 1.73 m Weight: 140.2 kg Last Vital Signs Temp 36.8 C 12/22/20 11:43 Pulse 86 12/22/20 11:43 Resp 12 12/22/20 11:43 BP 121/51 L 12/22/20 11:43 Pulse Ox 100 12/22/20 11:43 Allergies Allergy/AdvReac Type Severity Reaction Status Date / Time meperidine AdvReac Mild Nausea Verified 11/15/20 22:07 Home Medications Medication Instructions Recorded Confirmed Type apixaban 5 mg tablet 5 mg FEEDING TUBE BID 05/14/19 12/20/20 History foam bandage [Mepilex] #0 ea 11/20/20 12/20/20 Rx foam bandage [Mepilex] #0 ea 11/20/20 12/20/20 Rx pantoprazole 40 mg PO Q12HR #0 tablet 11/20/20 12/20/20 Rx acetaminophen [Mapap 650 mg FEEDING TUBE Q6H PRN 12/20/20 12/20/20 History (acetaminophen)] carvedilol [Coreg] 12.5 mg FEEDING TUBE BID 12/20/20 12/20/20 History cholecalciferol (vitamin D3) 1,250 mcg FEEDING TUBE WEEKLY 12/20/20 12/20/20 History empagliflozin [Jardiance] 25 mg FEEDING TUBE DAILY 12/20/20 12/20/20 History honey [MediHoney (honey)] 1 applic TOPICAL DAILY 12/20/20 12/20/20 History hydrocodone-acetaminophen 1 tablet FEEDING TUBE Q6H PRN 12/20/20 12/20/20 History insulin glargine [Lantus U-100 50 unit SUBCUT BID 12/20/20 12/20/20 History Insulin] insulin lispro 1 sliding scale dose SUBCUT QID 12/20/20 12/20/20 History insulin lispro 30 unit SUBCUT TIDWM 12/20/20 12/20/20 History levofloxacin 750 mg FEEDING TUBE DAILY 12/20/20 12/20/20 History menthol-zinc oxide [Calmoseptine] 1 applic TOPICAL TID 12/20/20 12/20/20 History metronidazole [Flagyl] 500 mg FEEDING TUBE Q8H 12/20/20 12/20/20 History miconazole nitrate 1 applic TOPICAL TID 12/20/20 12/20/20 History polyethylene glycol 3350 [Miralax] 17 g PO DAILY PRN 12/20/20 12/20/20 History povidone-iodine [Betadine] 1 applic TOPICAL DAILY 12/20/20 12/20/20 History propafenone 300 mg FEEDING TUBE Q8H 12/20/20 12/20/20 History vancomycin 125 mg PO BID 12/20/20 12/20/20 History vancomycin in 0.9 % sodium chl 2 g IV BID 12/20/20 12/20/20 History Laboratory Tests 12/21/20 12/21/20 12/21/20 15:26 19:53 20:43 WBC RBC Hgb Hct MCV MCH MCHC RDW Plt Count MPV Immature Gran % (Auto) Neut % (Auto) Lymph % (Auto) [place] % (Auto) Eos % (Auto) Baso % (Auto) Lymph # (Auto) [place] # (Auto) Eos # (Auto) Baso # (Auto) Abs Immat Gran (auto) Absolute Neuts (auto) Absolute Nucleated RBC Nucleated RBC % Sodium Potassium Chloride Carbon Dioxide Anion Gap BUN Creatinine Estim Creat Clear Calc Estimated GFR Glucose POC Capillary Glucose 329 mg/dl H mg/dl 370 mg/dl H mg/dl 343 mg/dl H mg/dl (65-105) (65-105) (65-105) Calcium Phosphorus Magnesium Total Bilirubin AST ALT Alkaline Phosphatase C-Reactive Protein Total Protein Albumin Urine Osmolality Vancomycin Trough 12/21/20 12/22/20 12/22/20 22:40 06:02 06:02 WBC 6.3 K/mm3 K/mm3 (4.5-10.0) RBC 2.97 M/mm3 L M/mm3 (4.6-6.20) Hgb 7.7 g/dL L g/dL (14.0-18.0) Hct 25.4 % L % (42.0-52.0) MCV 85.5 fl fl (80-100) MCH 25.9 pg L pg (2
[2020-12-22] MEDS: MICAFUNGIN SODIUM 100 MG in SODIUM CHLORIDE 0.9% IV 100 ML IVPB (15:07)
[2020-12-22 16:04] LABS: Glucose Point of Care 331 mg/dl (65-105)
[2020-12-22 16:31] LABS: Vancomycin Trough 18.1 ug/mL (10.0-20.0)
--- NOTE | 2020-12-22 16:33 | WPDANESEPP ---
Anes - Eval Pre Procedure Procedure: Operation Date: 12/23/20 13:30 Proposed Procedures p Sacral Decubitus Ulcer Debridement - Milton Houston DO s Debridement Right Below Knee Amputation Stump - Milton Houston DO Date/Time: 12/22/20 16:33 Pre Op Diagnosis: bacteremia, UTI, sepsis Patient Data Age: 60 Gender: M Height: 1.73 m Weight: 140.2 kg Last Vital Signs Temp 97.9 F 12/22/20 16:00 Pulse 83 12/22/20 16:00 Resp 16 12/22/20 16:00 BP 115/48 L 12/22/20 16:00 Pulse Ox 90 12/22/20 16:00 Allergies Allergy/AdvReac Type Severity Reaction Status Date / Time meperidine AdvReac Mild Nausea Verified 11/15/20 22:07 Home Medications Medication Instructions Recorded Confirmed Type apixaban 5 mg tablet 5 mg FEEDING TUBE BID 05/14/19 12/20/20 History foam bandage [Mepilex] #0 ea 11/20/20 12/20/20 Rx foam bandage [Mepilex] #0 ea 11/20/20 12/20/20 Rx pantoprazole 40 mg PO Q12HR #0 tablet 11/20/20 12/20/20 Rx acetaminophen [Mapap 650 mg FEEDING TUBE Q6H PRN 12/20/20 12/20/20 History (acetaminophen)] carvedilol [Coreg] 12.5 mg FEEDING TUBE BID 12/20/20 12/20/20 History cholecalciferol (vitamin D3) 1,250 mcg FEEDING TUBE WEEKLY 12/20/20 12/20/20 History empagliflozin [Jardiance] 25 mg FEEDING TUBE DAILY 12/20/20 12/20/20 History honey [MediHoney (honey)] 1 applic TOPICAL DAILY 12/20/20 12/20/20 History hydrocodone-acetaminophen 1 tablet FEEDING TUBE Q6H PRN 12/20/20 12/20/20 History insulin glargine [Lantus U-100 50 unit SUBCUT BID 12/20/20 12/20/20 History Insulin] insulin lispro 1 sliding scale dose SUBCUT QID 12/20/20 12/20/20 History insulin lispro 30 unit SUBCUT TIDWM 12/20/20 12/20/20 History levofloxacin 750 mg FEEDING TUBE DAILY 12/20/20 12/20/20 History menthol-zinc oxide [Calmoseptine] 1 applic TOPICAL TID 12/20/20 12/20/20 History metronidazole [Flagyl] 500 mg FEEDING TUBE Q8H 12/20/20 12/20/20 History miconazole nitrate 1 applic TOPICAL TID 12/20/20 12/20/20 History polyethylene glycol 3350 [Miralax] 17 g PO DAILY PRN 12/20/20 12/20/20 History povidone-iodine [Betadine] 1 applic TOPICAL DAILY 12/20/20 12/20/20 History propafenone 300 mg FEEDING TUBE Q8H 12/20/20 12/20/20 History vancomycin 125 mg PO BID 12/20/20 12/20/20 History vancomycin in 0.9 % sodium chl 2 g IV BID 12/20/20 12/20/20 History Laboratory Tests 12/21/20 12/21/20 12/21/20 19:53 20:43 22:40 WBC RBC Hgb Hct MCV MCH MCHC RDW Plt Count MPV Immature Gran % (Auto) Neut % (Auto) Lymph % (Auto) [place] % (Auto) Eos % (Auto) Baso % (Auto) Lymph # (Auto) [place] # (Auto) Eos # (Auto) Baso # (Auto) Abs Immat Gran (auto) Absolute Neuts (auto) Absolute Nucleated RBC Nucleated RBC % Sodium Potassium Chloride Carbon Dioxide Anion Gap BUN Creatinine Estim Creat Clear Calc Estimated GFR Glucose POC Capillary Glucose 370 mg/dl H mg/dl 343 mg/dl H mg/dl (65-105) (65-105) Calcium Phosphorus Magnesium Total Bilirubin AST ALT Alkaline Phosphatase C-Reactive Protein Total Protein Albumin Urine Osmolality Vancomycin Trough 31.4 ug/mL H ug/mL (10.0-20.0) 12/22/20 12/22/20 12/22/20 06:02 06:02 08:09 WBC 6.3 K/mm3 K/mm3 (4.5-10.0) RBC 2.97 M/mm3 L M/mm3 (4.6-6.20) Hgb 7.7 g/dL L g/dL (14.0-18.0) Hct 25.4 % L % (42.0-52.0) MCV 85.5 fl fl (80-100) MCH 25.9 pg L pg (26-34) MCHC 30.3 g/dl L g/dl
[2020-12-22] MEDS: POVIDONE-IODINE 10% OINT 30 GM TUBE 1 APPLIC TOPICAL (17:51)
[2020-12-22 20:31] LABS: Glucose Point of Care 380 mg/dl (65-105)
[2020-12-22] MEDS: INSULIN GLARGINE (*BKC) 100 UNITS/ML 25 UNITS SUB-Q (20:46)
[2020-12-22] MEDS: SOD HYPOCHLORITE 1/4 STRENGTH 473 ML 1 APPLIC TOPICAL (20:47)
[2020-12-23] VITALS (22 sets, daily range): BP systolic 102–159; BP diastolic 44–74; PULSE 64–100; RESP 16–79; TEMP 35.7–37.7; O2SAT 94–100
[2020-12-23] MEDS: TOLNAFTATE 1% POWDER 45 GM BTL 1 APPLIC TOPICAL ×2 (05:13→21:00)
[2020-12-23] MEDS: SODIUM CHLORIDE 0.9% IV 1,000 ML 75 ML IV CONT ×2 (05:15→21:42)
[2020-12-23 08:55] LABS: Glucose Point of Care 206 mg/dl (65-105)
[2020-12-23] MEDS: INSULIN ASPART (*BKC) 100 UNITS/ML SUB-Q (09:27)
[2020-12-23] MEDS: PANTOPRAZOLE 40 MG TABLET PO ×2 (09:28→20:59)
[2020-12-23] MEDS: carvediloL 12.5 MG TABLET FEED TUBE ×2 (09:28→18:32)
[2020-12-23] MEDS: DIGOXIN 250 MCG TABLET PO (09:29)
[2020-12-23 09:32] LABS: Basophils Percent Auto 0.5 % (0.2-1.2); Eosinophils Absolute Auto 0.1 K/mm3 (0-0.3); Eosinophils Percent Auto 2.5 % (0-4.4); Hematocrit 25.9 % (42.0-52.0); Hemoglobin 7.9 g/dL (14.0-18.0); Immature Granulocyte Absolute 0.05 K/mm3 (0.00-0.031); Immature Granulocyte Percent A 0.9 % (0-0.5); Lymphocytes Percent Auto 12.7 % (18.3-44.2); Mean Corpuscular HGB Conc 30.5 g/dl (32-36); Mean Corpuscular Hemoglobin 26.6 pg (26-34); Mean Corpuscular Volume 87.2 fl (80-100); Mean Platelet Volume 8.9 fl (7.4-10.4); Monocytes Absolute Auto 0.5 K/mm3 (0.1-0.6); Monocytes Percent Auto 8.9 % (2.6-8.5); Neutrophils Absolute Auto 4.1 K/mm3 (1.3-6.7); Neutrophils Percent Auto 74.5 % (45.5-73.1); Platelet Count Result 125 k/mm3 (150-375); Red Blood Count 2.97 M/mm3 (4.6-6.20); Red Cell Distribution Width 18.8 % (11.5-14.5); White Blood Count 5.5 K/mm3 (4.5-10.0)
[2020-12-23 09:54] LABS: Alanine Aminotransferase 20 U/L (4-50); Albumin Level 2.4 g/dL (3.5-5.1); Alkaline Phosphatase 54 U/L (38-126); Anion Gap 8 mmol/L (8-16); Aspartate Amino Transferase 26 U/L (17-59); Bilirubin,Total 0.2 mg/dL (0.2-1.3); Blood Urea Nitrogen 15 mg/dL (9-20); Calcium 7.2 mg/dL (8.4-10.2); Carbon Dioxide 22 mmol/L (22-30); Chloride 102 mmol/L (98-107); Estimated CRCL calculation 119 ml/min; Estimated Glomerular Filt Rate > 60; Glucose 215 mg/dL (65-110); Magnesium 1.7 mg/dL (1.6-2.3); Phosphorus 3.6 mg/dL (2.5-4.5); Potassium 2.9 mmol/L (3.4-5.0); Sodium 132 mmol/L (137-145)
--- NOTE | 2020-12-23 12:03 | PM.PNCARD ---
Progress Note: A&P Assessment and Plan (1) Chronic atrial fibrillation with RVR: Code(s): I48.20 - Chronic atrial fibrillation, unspecified <JAY Madrid - Last Filed: 12/23/20 12:35> Status: Acute <JAY Madrid - Last Filed: 12/23/20 12:35> Assessment and Plan: Chronic atrial fibrillation. He developed RVR during this hospitalization. On propafenone as an outpatient which has been discontinued and he has been placed on digoxin which is providing good rate control. He is also on carvedilol. Heart rate currently in the 60's. <JAY Madrid - Last Filed: 12/23/20 12:35> (2) Anticoagulant long-term use: Code(s): Z79.01 - intermediate (current) use of anticoagulants <JAY Madrid - Last Filed: 12/23/20 12:35> Status: Acute <JAY Madrid - Last Filed: 12/23/20 12:35> Assessment and Plan: On eliquis for systemic A/C. This is currently on hold in the setting of hematuria and plan for OR today for surgical debridement of sacral decubitus as well as debridement of R stump necrosis. Will be in contact with surgery and urology regarding appropriate timing to restart A/C <JAY Madrid - Last Filed: 12/23/20 12:35> Additional Plan Attending addendum: I agree with the above documentation and plan of care as outlined. <Tucker Denny MD - Last Filed: 12/23/20 16:17> Subjective Date/time seen: 12/23/20 12:03 <JAY Madrid - Last Filed: 12/23/20 12:35> Interval history: Cardiology follow up for atrial fibrillation Date of service 12/23/2020: Feels well today. Awaiting OR for debridement of <JAY Madrid - Last Filed: 12/23/20 12:35> Review of Systems Constitutional: Constitutional: Reports weakness <JAY Madrid Last Filed: 12/23/20 12:35> Eyes: Eyes: Reports no additional eye complaints <JAY Madrid - Last Filed: 12/23/20 12:35> ENT: Reports system reviewed and no additional complaints, except as documented <JAY Madrid - Last Filed: 12/23/20 12:35> Cardiovascular: Cardiovascular: Reports no additional cardiovascular complaints <JAY Madrid - Last Filed: 12/23/20 12:35> Respiratory: Respiratory: Reports no additional respiratory complaints <JAY Madrid - Last Filed: 12/23/20 12:35> Gastrointestinal: Gastrointestinal: Reports diarrhea <JAY Madrid - Last Filed: 12/23/20 12:35> Genitourinary: Genitourinary: Reports as per HPI <JAY Madrid Last Filed: 12/23/20 12:35> Musculoskeletal: Musculoskeletal: Reports no additional musculoskeletal complaints <JAY Madrid - Last Filed: 12/23/20 12:35> Integumentary/Breasts: Skin/Breast: Reports system reviewed and no additional complaints, except as docu <JAY Madrid - Last Filed: 12/23/20 12:35> Neurologic: Reports system reviewed and no additional complaints, except as documented and Reports weakness <JAY Madrid - Last Filed: 12/23/20 12:35> Psychiatric: Psychiatric: Reports no additional psychiatric complaints <JAY Madrid - Last Filed: 12/23/20 12:35> Endocrine: Endocrine: Reports no additional endocrine complaints <JAY Madrid - Last Filed: 12/23/20 12:35> Hematologic/Lymphatic: Hematologic/Lymphatic: Reports no additional hematologic/lymphatic complaints <JAY Madrid - Last Filed: 12/23/20 12:35> Allergic/Immunologic: Allergic/Immunologic: Reports no additional allergic/immunologic complaints <JAY Madrid - Last Filed: 12/23/20 12:35> Exam Const: General: comfortable and no acute distress <JAY Madrid - Last Filed: 12/23/20 12:35> HENMT: Mouth: Yes moist mucous membranes <JAY Madrid - Last Filed: 12/23/20 12:35> Eyes: Sclera: sclerae normal <JAY Madrid - Last Filed: 12/23/20 12:35> Pupils: Equal, round and reactive pupils pre
[2020-12-23 12:57] LABS: Glucose Point of Care 174 mg/dl (65-105)
[2020-12-23] MEDS: LACTATED RINGERS 1,000 ML 30 ML IV CONT (13:02)
[2020-12-23] MEDS: MICAFUNGIN SODIUM 100 MG in SODIUM CHLORIDE 0.9% IV 100 ML IVPB (13:34)
--- NOTE | 2020-12-23 14:10 | WPDHPUPDATE1 ---
History and Physical Update Update Date/Time: 12/23/20 14:10 History and Physical has been reviewed, including an updated exam of the patient. There are NO changes in the patient's condition. Risks, benefits, and alternatives have been discussed and questions answered. Patient agrees to proceed with procedure.
[2020-12-23 16:08] LABS: Glucose Point of Care 175 mg/dl (65-105)
[2020-12-23] MEDS: fentaNYL CITRATE INJ (*CRX) 100 MCG/2 ML VIAL 25 MCG IV PUSH ×4 (16:13→16:46)
--- NOTE | 2020-12-23 16:39 | SUR.OPER ---
patient transfered to OR Bed with assistance of 6 via Maxi Air Postpartum Rn. Lateral postition. Large amount of orange tint stool patient cleaned. Noted posterior neck Abd no tape loose. 3 width - deep area of shea wound visible noted by anesthesia at end of case. Dr Houston aware of wound and instructed to place clean Abd at site and medipore tape.
--- NOTE | 2020-12-23 16:40 | W.PM.PROC2 ---
Procedure Note - Detailed Date of Procedure 12/24/20 Pre-op Diagnosis Unstageable sacral decubitus, right below knee amputation ulcer Post-op Diagnosis other (Stage IV sacral decubitus ulcer likely osteomyelitis) Procedure Performed 1. Sharp excisional debridement of sacral decubitus ulcer including skin, subcutaneous fat, muscle, tendon, and bone measuring 15cm x 20cm 2. Sharp excisional debridement of right below knee amputation ulcer including skin and subcutaneous fat measuring 3cm x 3cm Surgeon Milton Houston, DO Anesthesia general Indications This is a 60 year has a large sacral decubitus ulcer and another ulcer on his right BKA stump. He was hospitalized month ago with C diff colitis with septic shock. Was on multiple pressors around that time and developed demand ischemia and several regions. He now has drainage from the sacral decubitus ulcer and there is concern for infection or osteomyelitis. Decision was made to proceed with debridement sacral decubitus ulcer and right BKA ulcer. Findings The sacral decubitus ulcer was sharply debrided. The surface area of the sacral ulcer measures 15 cm x 20 cm and included skin, subcutaneous fat, muscle, tendon, and bone. The sacrum did appear somewhat soft and several biopsies were taken for assessing for osteomyelitis. The wound was debrided down to healthy appearing tissue in most locations. I then also sharply debrided the right BKA ulcer which measured 3 cm x 3 cm and only included skin and subcutaneous fat. Description of Procedure Procedure as well as risks, benefits, and alternatives were discussed with the patient. Written consent was obtained and placed in chart prior to procedure. Patient was brought back to surgical suite. His placed supine abdomen table. Time-out was done to confirm patient and procedure and then he was intubated by the Anesthesia Department. He was then repositioned into left lateral decubitus position on the operating table. The sacral and right BKA areas were prepped and draped in sterile fashion using Betadine prep. Curved Denise scissors and a 10 blade scalpel were used to sharply debride the necrotic tissue within the wound beds. The necrotic tissue was excised all the way down to healthy appearing viable tissue. Biopsies were then also taken of the sacrum to confirm osteomyelitis. I excised an area of 15 cm x 20 cm on the sacrum. Electrocautery was used in a couple locations on the skin to aid with hemostasis. Wound bed was then inspected and hemostasis appeared adequate. The right BKA ulcer was then sharply excised as well using curved Denise scissors and a 10 blade scalpel. This was excised down to healthy appearing tissue was well which included skin and subcutaneous fat. Hemostasis appeared adequate in this region. Dakin's soaked Kerlix gauze was then applied within the wound bed followed by fluff gauze, ABD pads, and tape. The patient was then awakened from anesthesia, extubated, and transferred to recovery. Estimated Blood Loss -10.0 Urine Output -400.0 Pathology yes (Sacral biopsies) Complications No immediate complications Condition stable Disposition other ([facility])
--- NOTE | 2020-12-23 16:48 | SUR.OPER ---
Chart entered post case per Vicente Pelayo RN.
--- NOTE | 2020-12-23 17:00 | PM.IMPN ---
Progress Note: A&P Assessment and Plan (1) Fungemia: Code(s): B49 - Unspecified mycosis Status: Acute Assessment and Plan: Simran glabrata growing in blood. By far, most likely etiology would be inoculation into the blood stream from open wound Continue IV micafungin, daily. Follow results of echocardiogram. Repeat daily blood cultures. Currently no signs of sepsis: No fevers or chills, white count is 6.3, and blood pressure is stable. Continue to monitor closely. Id on consult, appreciate recommendations. 12/23/20 17:00 patient is a 60-year-old male morbidly obese with right [id number] amputation and left AKA with unstageable sacral decubitus ulcer seen by ID does not suspect an infection, patient was seen by surgery service and was taken today with for wound debridement and currently patient is in recovery room, has no complaints, patient has fungemia Simran glabrata growing in blood, seen by ID being treated IV micafungin, daily. will continue to monitor and appreciate ID and surgery service. (2) Osteomyelitis: Code(s): M86.9 - Osteomyelitis, unspecified Status: Acute Assessment and Plan: Concern for osteomyelitis based on the fact that physical exam shows sacral ulcer is palpable to bone; however as ID noted, ulcer not clearly infected, and will avoid antibacterials unless required, as patient has multiple C diff infections in the last few years. Pull PICC line Hold Fidaxomicin. Consulted surgery to help with debridement. Wound culture ordered, to help keep antibiotics narrow. Id on consult, appreciate recommendations. (3) Chronic atrial fibrillation with RVR: Code(s): I48.20 - Chronic atrial fibrillation, unspecified Status: Acute Assessment and Plan: Hold anticoagulation in setting of acute hematuria. Cardiology on board and recommending Coreg and digoxin, will continue (4) Gross hematuria: Code(s): R31.0 - Gross hematuria Status: Acute Assessment and Plan: Has undergone irrigation of Abarca with Urology. Would ideally require CT urogram, however as noted by Urology, habitus would preclude undergoing this test at this facility. Will likely have to be done as an outpatient. Right now, Abarca bag looks completely yellow, no real evidence of blood, and certainly no clots today so far. (5) Acute UTI: Code(s): N39.0 - Urinary tract infection, site not specified Status: Acute Assessment and Plan: Possible cause of hematuria. No growth in urine, will complete empiric UTI therapy, current covered by Zosyn. (6) Diabetes: Code(s): E11.9 - Type 2 diabetes mellitus without complications Status: Acute Assessment and Plan: Morbidly obese, continue insulin therapy with 25 basal Lantus, and sliding scale. Additional Plan The patient has chronic atrial fibrillation with acute AFib RVR. Will continue patient's home metoprolol. Will add Cardizem push with Cardizem drip. Will consult Cardiology. Patient's Eliquis is on hold due to gross hematuria. The patient has gross hematuria with 2+ leukocyte Estrace and trace bacteria. UA could be consistent with UTI. The patient was already on Levaquin and IV vancomycin for his chronic leg wound/decubitus wound and is on oral vancomycin and p.o. Flagyl due to his persistent C diff colitis. Will continue IV vancomycin and switch Levaquin to IV. Will check urine culture. Will monitor urine culture and adjust antibiotics as indicated. Depending on patient's clinical course remain the to the discussed antibiotic regimen with Infectious Disease physician. 12/20/20 Given the patient's chronic and numerous decubitus wounds wound Care has been consulted for eval for surgical debridment. Continue vancomycin Zosyn Day 2 Diflucan Day 1 x bacteremia and infected decubitus ulcer +c diff on fidaxomicin and flagyl pt on double coverage w above abx w consult dr pardo for recommendations cont
[2020-12-23 17:48] LABS: Glucose Point of Care 190 mg/dl (65-105)
--- NOTE | 2020-12-23 20:53 | PC.NURSE ---
1205 - to OR via bed accompanied by surgical staff
--- NOTE | 2020-12-23 20:53 | PC.NURSE ---
5536- returned to room post procedure- a/o x3 - dressing to scarum area and right stump CDI; denies any pain. pt placed on specialty bed
[2020-12-23] MEDS: ERGOCALCIFEROL 50,000 UNIT CAPSULE 50000 UNITS FEED TUBE (20:59)
[2020-12-23] MEDS: INSULIN GLARGINE (*BKC) 100 UNITS/ML 25 UNITS SUB-Q (20:59)
[2020-12-23 21:09] LABS: Glucose Point of Care 177 mg/dl (65-105)
[2020-12-23] MEDS: SOD HYPOCHLORITE 1/4 STRENGTH 473 ML 1 APPLIC TOPICAL (21:43)
[2020-12-24] VITALS (11 sets, daily range): BP systolic 108–125; BP diastolic 34–55; PULSE 59–72; RESP 12–24; TEMP 35.6–36.9; O2SAT 98–100
[2020-12-24] MEDS: TOLNAFTATE 1% POWDER 45 GM BTL 1 APPLIC TOPICAL ×3 (05:31→21:57)
[2020-12-24 08:45] LABS: Glucose Point of Care 216 mg/dl (65-105)
[2020-12-24] MEDS: HYDROcodone/acetaminophen (*CRX) 5-325 MG TABLET 1 TAB FEED TUBE ×2 (09:10→22:02)
[2020-12-24] MEDS: DIGOXIN 250 MCG TABLET PO (09:11)
[2020-12-24] MEDS: SOD HYPOCHLORITE 1/4 STRENGTH 473 ML 1 APPLIC TOPICAL ×2 (09:12→21:56)
[2020-12-24] MEDS: carvediloL 12.5 MG TABLET FEED TUBE ×2 (09:12→18:35)
[2020-12-24] MEDS: PANTOPRAZOLE 40 MG TABLET PO ×2 (09:12→21:56)
[2020-12-24] MEDS: POVIDONE-IODINE 10% OINT 30 GM TUBE 1 APPLIC TOPICAL (09:13)
[2020-12-24] MEDS: INSULIN ASPART (*BKC) 100 UNITS/ML SUB-Q ×3 (09:15→18:38)
[2020-12-24] MEDS: HYDROcodone/acetaminophen (*CRX) 5-325 MG TABLET 1 TAB PO (10:22)
--- NOTE | 2020-12-24 11:21 | PC.NURSE ---
This patient, Lester Nguyễn, was transferred to [facility] on 12/24/20 at 1105. Personal belongings sent with patient. Report given to Alona MUIR. Appropriate documentation sent with patient.
--- NOTE | 2020-12-24 11:29 | PCDIET ---
Nutrition Follow-Up Complete: Nutrition Diagnosis: Inadequate oral intake related to diet order as evidenced by clear liquid. Nutrition Goal: Patient to meet estimated nutritional needs. Goal not met. Patient now on full liquid diet POD #1 s/p debridement of sacral and right BKA ulcers. Glenn discontinued when patient was made NPO and intakes have been 50% or less. Would thus recommend adding Glucerna Shake (220kcal, 10g protein) TID. Last recorded weight is 140.1 kg which is stable with last review. Bowel Motility: Last documented BM on 12/20/20 x 2. Labs Reviewed: Glu (216) Meds Noted: [place], Coreg, Drisdol, Novolog, Lantus, Micafungin Sodium, Protonix, Zosyn, NS at 75mL/hr, Vancomycin Additional Notes: Will continue to monitor with same goal. Nutrition Monitoring and Evaluation: Follow up every 3 days.
--- NOTE | 2020-12-24 11:52 | PM.PNGS ---
Progress Note: A&P Assessment and Plan (1) Sacral decubitus ulcer: Code(s): L89.159 - Pressure ulcer of sacral region, unspecified stage Status: Acute Assessment and Plan: Had long discussion with patient today about wound care and outlook. He is at high risk for continued infection of wound due to fecal contamination. He is also immobile which makes stool function and wound care all the more difficult. This wound will take months if not years to heal even with the most diligent care. A diverting colostomy will decrease risk of contamination and infection, but does pose the surgical risks. I was very honest with patient and told him risks are great either way, but if he tolerates surgery, he will have a much easier time with wound and ostomy care in the long run. He would like to discuss the ostomy further with the Wound/ET nurse to see how this will go once he is out of the hospital. Right now he has no use of his hands so he is completely dependent on nursing/family for his care. Will consider diverting colostomy in the next couple days if patient wishes to proceed. Will get CT abd/pelvis tomorrow to ensure colon looks healed from previous C diff infections and help plan location for ostomy. (2) Functional quadriplegia: Code(s): R53.2 - Functional quadriplegia Status: Acute Subjective Subjective Date/Time Seen: 12/24/20 11:52 Interval history: Patient doing well today. Not having too much pain with wound. Exam Skin: Other: Minimal bloody drainage on dressings Objective Data Vital Signs Vital Signs: Vital Signs - 24 hr 12/23/20 12:00 12/23/20 12:45 12/23/20 15:45 Temperature 36.1 C L 37.7 C H Pulse Rate 70 64 100 Respiratory Rate 16 24 H Blood Pressure 140/65 139/63 Pulse Oximetry 100 100 12/23/20 16:00 12/23/20 16:16 12/23/20 16:30 Temperature 36.8 C Pulse Rate 80 78 91 Respiratory Rate 22 H 24 H 21 H Blood Pressure 141/74 H 137/57 L 147/48 H Pulse Oximetry 100 100 95 12/23/20 16:45 12/23/20 17:02 12/23/20 17:50 Temperature 35.7 C L Pulse Rate 88 82 75 Respiratory Rate 19 21 H 21 H Blood Pressure 154/59 H 159/50 H 102/44 L Pulse Oximetry 99 100 94 12/23/20 18:00 12/23/20 18:32 12/23/20 20:00 Temperature 36.4 C L Pulse Rate 77 80 70 Respiratory Rate 22 H Blood Pressure 113/57 L Pulse Oximetry 100 12/23/20 22:00 12/24/20 00:00 12/24/20 02:00 Temperature 36.9 C Pulse Rate 68 70 72 Respiratory Rate 24 H Blood Pressure 108/55 L Pulse Oximetry 98 12/24/20 04:00 12/24/20 06:00 12/24/20 08:00 Temperature 36.6 C 36.6 C Pulse Rate 70 60 65 Respiratory Rate 24 H 12 Blood Pressure 122/46 L 125/44 L Pulse Oximetry 99 100 12/24/20 09:11 12/24/20 09:12 Temperature Pulse Rate 70 70 Respiratory Rate Blood Pressure Pulse Oximetry Intake/Output Intake/Output: Intake & Output 12/21/20 12/22/20 12/23/20 12/24/20 23:59 23:59 23:59 23:59 Intake Total 4884 5880 2600 1450 Output Total 87959 2800 4100 1300 Balance -6616 3080 -1500 150 Meds/Results Medications: Active Medications Generic Name Dose Route Start Last Admin Trade Name Freq PRN Reason Stop Dose Admin Hydrocodone Bitart/Acetaminophen 1 tab 12/20/20 05:20 12/24/20 09:10 Hydrocodone/Acetaminophen (*Crx) 5-325 Mg Tablet FEED TUBE 1 tab Q6H PRN Administration Pain 4-10 Carvedilol 12.5 mg 12/20/20 08:00 12/24/20 09:12 Carvedilol 12.5 Mg Tablet FEED TUBE 12.5 mg BIDWM FAROOQ Administration Dextrose 12.5 gm 12/20/20 05:22 Dextrose 50% 25 Gm/50 Ml Syringe IV PUSH PRN PRN Hypoglycemia Protocol Digoxin 250 mcg 12/21/20 09:00 12/24/20 09:11 Digoxin 250 Mcg Tablet PO 250 mcg QAM FAROOQ Administration Ergocalciferol 50,000 unit 12/23/20 09:00 12/23/20 20:59 Ergocalciferol 50,000 Unit Capsule FEED TUBE 50,000 unit WEEKLY FAROOQ Administration Glucagon 1 mg 12/20/20 05:22 Glucagon For Inj
[2020-12-24 13:01] LABS: Glucose Point of Care 229 mg/dl (65-105)
[2020-12-24] MEDS: MICAFUNGIN SODIUM 100 MG in SODIUM CHLORIDE 0.9% IV 100 ML IVPB (13:15)
[2020-12-24] MEDS: SODIUM CHLORIDE 0.9% IV 1,000 ML 75 ML IV CONT (14:20)
--- NOTE | 2020-12-24 17:35 | PM.IMPN ---
Progress Note: A&P Assessment and Plan (1) Fungemia: Code(s): B49 - Unspecified mycosis Status: Acute Assessment and Plan: Simran glabrata growing in blood. By far, most likely etiology would be inoculation into the blood stream from open wound Continue IV micafungin, daily. Follow results of echocardiogram. Repeat daily blood cultures. Currently no signs of sepsis: No fevers or chills, white count is 6.3, and blood pressure is stable. Continue to monitor closely. Id on consult, appreciate recommendations. 12/23/20 17:0 patient is a 60-year-old male morbidly obese with right [id number] amputation and left AKA with unstageable sacral decubitus ulcer seen by ID does not suspect an infection, patient was seen by surgery service and was taken today with for wound debridement and currently patient is in recovery room, has no complaints, patient has fungemia Simran glabrata growing in blood, seen by ID being treated IV micafungin, daily. will continue to monitor and appreciate ID and surgery service. 12/24 today patient seen medical floor lying in his bed uncomfortable states the bed is uncomfortable unable to maneuver, discussed with charge nurse and they will recheck the bed, patient is postop day 1,decubitus ulcer Status post debridement patient remains clinically stable, patient with fungemia being treated with IV micafungin, daily patient seen by ID and further recommendation to follow, patient seen by PT OT will continue, will monitor and further recommendation to follow. (2) Osteomyelitis: Code(s): M86.9 - Osteomyelitis, unspecified Status: Acute Assessment and Plan: Concern for osteomyelitis based on the fact that physical exam shows sacral ulcer is palpable to bone; however as ID noted, ulcer not clearly infected, and will avoid antibacterials unless required, as patient has multiple C diff infections in the last few years. Pull PICC line Hold Fidaxomicin. Consulted surgery to help with debridement. Wound culture ordered, to help keep antibiotics narrow. Id on consult, appreciate recommendations. (3) Chronic atrial fibrillation with RVR: Code(s): I48.20 - Chronic atrial fibrillation, unspecified Status: Acute Assessment and Plan: Hold anticoagulation in setting of acute hematuria. Cardiology on board and recommending Coreg and digoxin, will continue (4) Gross hematuria: Code(s): R31.0 - Gross hematuria Status: Acute Assessment and Plan: Has undergone irrigation of Abarca with Urology. Would ideally require CT urogram, however as noted by Urology, habitus would preclude undergoing this test at this facility. Will likely have to be done as an outpatient. Right now, Abarca bag looks completely yellow, no real evidence of blood, and certainly no clots today so far. (5) Acute UTI: Code(s): N39.0 - Urinary tract infection, site not specified Status: Acute Assessment and Plan: Possible cause of hematuria. No growth in urine, will complete empiric UTI therapy, current covered by Zosyn. (6) Diabetes: Code(s): E11.9 - Type 2 diabetes mellitus without complications Status: Acute Assessment and Plan: Morbidly obese, continue insulin therapy with 25 basal Lantus, and sliding scale. Additional Plan The patient has chronic atrial fibrillation with acute AFib RVR. Will continue patient's home metoprolol. Will add Cardizem push with Cardizem drip. Will consult Cardiology. Patient's Eliquis is on hold due to gross hematuria. The patient has gross hematuria with 2+ leukocyte Estrace and trace bacteria. UA could be consistent with UTI. The patient was already on Levaquin and IV vancomycin for his chronic leg wound/decubitus wound and is on oral vancomycin and p.o. Flagyl due to his persistent C diff colitis. Will continue IV vancomycin and switch Levaquin to IV. Will check urine culture. Will monitor urine culture and adjus
[2020-12-24 18:37] LABS: Glucose Point of Care 240 mg/dl (65-105)
[2020-12-24] MEDS: INSULIN GLARGINE (*BKC) 100 UNITS/ML 25 UNITS SUB-Q (22:10)
[2020-12-24 22:41] LABS: Glucose Point of Care 222 mg/dl (65-105)
[2020-12-25 00:34] LABS: Vancomycin Trough 17.4 ug/mL (10.0-20.0)
[2020-12-25] MEDS: HYDROcodone/acetaminophen (*CRX) 5-325 MG TABLET 1 TAB FEED TUBE ×2 (04:05→21:14)
[2020-12-25] MEDS: TOLNAFTATE 1% POWDER 45 GM BTL 1 APPLIC TOPICAL ×3 (05:21→21:18)
[2020-12-25 06:04] VITALS: BP 131/50; PULSE 56; RESP 20; TEMP 36.1; O2SAT 98
[2020-12-25 06:38] LABS: Estimated CRCL calculation 119 ml/min; Estimated Glomerular Filt Rate > 60
[2020-12-25 08:05] LABS: Glucose Point of Care 193 mg/dl (65-105)
[2020-12-25 08:19] LABS: Osmolality, Urine 517 mOsm/kg (50-1200)
[2020-12-25 08:30] VITALS: PULSE 68
[2020-12-25] MEDS: carvediloL 12.5 MG TABLET FEED TUBE ×2 (08:30→18:19)
[2020-12-25 08:31] VITALS: PULSE 68
[2020-12-25] MEDS: DIGOXIN 250 MCG TABLET PO (08:31)
[2020-12-25] MEDS: PANTOPRAZOLE 40 MG TABLET PO ×2 (08:32→21:17)
[2020-12-25] MEDS: SOD HYPOCHLORITE 1/4 STRENGTH 473 ML 1 APPLIC TOPICAL ×2 (10:10→21:19)
--- NOTE | 2020-12-25 10:44 | PM.PNCARD ---
Progress Note: A&P Assessment and Plan (1) Chronic atrial fibrillation with RVR: Code(s): I48.20 - Chronic atrial fibrillation, unspecified <JAY Madrid - Last Filed: 12/25/20 11:21> Status: Acute <JAY Madrid - Last Filed: 12/25/20 11:21> Assessment and Plan: Chronic atrial fibrillation. He developed RVR during this hospitalization. On propafenone as an outpatient which has been discontinued and he has been placed on digoxin which is providing good rate control. He is also on carvedilol. Heart rate currently in the 50's - 60's. <JAY Madrid - Last Filed: 12/25/20 11:21> (2) Anticoagulant long-term use: Code(s): Z79.01 - long-term (current) use of anticoagulants <JAY Madrid - Last Filed: 12/25/20 11:21> Status: Acute <JAY Madrid - Last Filed: 12/25/20 11:21> Assessment and Plan: On eliquis for systemic A/C. Initially placed on hold in the setting of hematuria and recent surgical debridement of sacral decubitus as well as debridement of R stump necrosis. Continue to hold in anticipation of possible ostomy procedure. Will be in contact with surgery and urology regarding appropriate timing to restart A/C <JAY Madrid - Last Filed: 12/25/20 11:21> Additional Plan Attending addendum: I agree with the above documentation and plan of care as outlined. <Tucker Denny MD - Last Filed: 12/25/20 16:43> Subjective Date/time seen: 12/25/20 10:44 <JAY Madrid - Last Filed: 12/25/20 11:21> Interval history: Cardiology follow up for atrial fibrillation Date of service 12/23/2020: Feels well today. Awaiting OR for debridement of sacral wound Date of service 12/25/2020: No complaints today. Says he has decided to proceed with elective colostomy placement in hopes of decreasing risk of further sacral wound infections. <JAY Madrid - Last Filed: 12/25/20 11:21> Review of Systems Constitutional: Constitutional: Reports weakness <JAY Madrid - Last Filed: 12/25/20 11:21> Eyes: Eyes: Reports no additional eye complaints <JAY Madrid - Last Filed: 12/25/20 11:21> ENT: Reports system reviewed and no additional complaints, except as documented <JAY Madrid - Last Filed: 12/25/20 11:21> Cardiovascular: Cardiovascular: Reports no additional cardiovascular complaints <JAY Madrid - Last Filed: 12/25/20 11:21> Respiratory: Respiratory: Reports no additional respiratory complaints <JAY Madrid - Last Filed: 12/25/20 11:21> Gastrointestinal: Gastrointestinal: Reports diarrhea <JAY Madrid - Last Filed: 12/25/20 11:21> Genitourinary: Genitourinary: Reports as per HPI <JAY Madrid - Last Filed: 12/25/20 11:21> Musculoskeletal: Musculoskeletal: Reports no additional musculoskeletal complaints <JAY Madrid - Last Filed: 12/25/20 11:21> Integumentary/Breasts: Skin/Breast: Reports system reviewed and no additional complaints, except as docu <JAY Madrid - Last Filed: 12/25/20 11:21> Neurologic: Reports system reviewed and no additional complaints, except as documented and Reports weakness <JAY Madrid - Last Filed: 12/25/20 11:21> Psychiatric: Psychiatric: Reports no additional psychiatric complaints <JAY Madrid - Last Filed: 12/25/20 11:21> Endocrine: Endocrine: Reports no additional endocrine complaints <JAY Madrid - Last Filed: 12/25/20 11:21> Hematologic/Lymphatic: Hematologic/Lymphatic: Reports no additional hematologic/lymphatic complaints <JAY Madrid - Last Filed: 12/25/20 11:21> Allergic/Immunologic: Allergic/Immunologic: Reports no additional allergic/immunologic complaints <JAY Madrid - Last Filed: 12/25/20 11:21> Exam Const: General: comfortable and no acute distress <JAY Madrid - Ramesh Tigre
--- NOTE | 2020-12-25 12:12 | PM.PNGS ---
Progress Note: A&P Assessment and Plan (1) Sacral decubitus ulcer: Code(s): L89.159 - Pressure ulcer of sacral region, unspecified stage Status: Acute Assessment and Plan: Patient has decided on proceeding with diverting colostomy. I discussed procedure with patient. Unfortunately, there is no time in the OR tomorrow until late in the evening. Given his comorbidities, I would like to plan this during the daytime when backup help is available. Will plan for open diverting colostomy on Tuesday. I am OK with patient being anticoagulated until Tuesday night. Lovenox or Heparin drip would probably be best given the short course before surgery. Will continue to follow for wound care needs at this time. (2) Anticoagulant long-term use: Code(s): Z79.01 - care home (current) use of anticoagulants Status: Acute (3) Functional quadriplegia: Code(s): R53.2 - Functional quadriplegia Status: Acute Subjective Subjective Date/Time Seen: 12/25/20 12:12 Interval history: Patient has seen the Ostomy nurses and he has decided he does want to go through with diverting colostomy. Exam GI: Inspection: Pannus present and obesity GI Palp: No Tenderness to palpation present (GI) and No Guarding due to palpation present (GI) Objective Data Vital Signs Vital Signs: Vital Signs - 24 hr 12/24/20 14:00 12/24/20 15:50 12/24/20 18:35 Temperature 35.6 C L 35.8 C L Pulse Rate 60 62 72 Respiratory Rate 18 18 Blood Pressure 111/34 L 113/47 L Pulse Oximetry 100 99 12/24/20 22:00 12/25/20 06:04 12/25/20 08:30 Temperature 36.1 C L 36.1 C L Pulse Rate 59 L 56 L 68 Respiratory Rate 20 20 Blood Pressure 116/47 L 131/50 L Pulse Oximetry 100 98 12/25/20 08:31 Temperature Pulse Rate 68 Respiratory Rate Blood Pressure Pulse Oximetry Intake/Output Intake/Output: Intake & Output 12/22/20 12/23/20 12/24/20 12/25/20 23:59 23:59 23:59 23:59 Intake Total 5880 2600 3907 1980 Output Total 2800 4100 1875 1600 Balance 3080 -1500 2032 380 Meds/Results Medications: Active Medications Generic Name Dose Route Start Last Admin Trade Name Freq PRN Reason Stop Dose Admin Hydrocodone Bitart/Acetaminophen 1 tab 12/20/20 05:20 12/25/20 04:05 Hydrocodone/Acetaminophen (*Crx) 5-325 Mg Tablet FEED TUBE 1 tab Q6H PRN Administration Pain 4-10 Carvedilol 12.5 mg 12/20/20 08:00 12/25/20 08:30 Carvedilol 12.5 Mg Tablet FEED TUBE 12.5 mg BIDWM FAROOQ Administration Dextrose 12.5 gm 12/20/20 05:22 Dextrose 50% 25 Gm/50 Ml Syringe IV PUSH PRN PRN Hypoglycemia Protocol Digoxin 250 mcg 12/21/20 09:00 12/25/20 08:31 Digoxin 250 Mcg Tablet PO 250 mcg QAM FAROOQ Administration Ergocalciferol 50,000 unit 12/23/20 09:00 12/23/20 20:59 Ergocalciferol 50,000 Unit Capsule FEED TUBE 50,000 unit WEEKLY FAROOQ Administration Glucagon 1 mg 12/20/20 05:22 Glucagon For Inj 1 Mg Vial IM PRN PRN Hypoglycemia Protocol Glucose 15 gm 12/20/20 05:22 Glucose Oral Gel 15 Gm Of Glucse In 37.5 Gm Tube PO PRN PRN Hypoglycemia Protocol Sodium Chloride 1,000 mls @ 75 mls/hr 12/20/20 01:10 12/25/20 07:29 Normal Saline Iv IV CONT Infused .[id number] FAROOQ Infusion Dextrose 1,000 mls @ 100 mls/hr 12/20/20 05:22 Dextrose 5% 1,000 Ml IVPB PRN PRN Hypoglycemia Protocol Acetaminophen 1,000 mg in 100 mls @ 400 mls/hr 12/20/20 18:00 12/20/20 22:33 Ofirmev 1,000 Mg Ivpb IVPB Infused Q6HR PRN Infusion Fever > 100.4 Piperacillin Sod/Tazobactam Sod 4.5 gm in 100 mls @ 200 mls/hr 12/22/20 11:20 12/25/20 05:51 Zosyn 4.5 Gm/D5w 100 Ml IVPB Infused Q6HR FAROOQ Infusion Micafungin Sodium 100 mg/ 100 mls @ 100 mls/hr 12/22/20 13:00 12/24/20 16:17 Sodium Chloride IVPB Infused Q24H FAROOQ Infusion Vancomycin HCl 2,000 mg in 500 mls @ 250 mls/hr 12/25/20 10:00 12/25/20 10:07
[2020-12-25] MEDS: INSULIN ASPART (*BKC) 100 UNITS/ML SUB-Q ×2 (13:01→18:31)
[2020-12-25 13:09] LABS: Glucose Point of Care 256 mg/dl (65-105)
[2020-12-25] MEDS: POVIDONE-IODINE 10% OINT 30 GM TUBE 1 APPLIC TOPICAL (13:13)
[2020-12-25] MEDS: SODIUM CHLORIDE 0.9% IV 1,000 ML 75 ML IV CONT (13:15)
--- NOTE | 2020-12-25 14:49 | PM.IMPN ---
Progress Note: A&P Assessment and Plan (1) Fungemia: Code(s): B49 - Unspecified mycosis Status: Acute Assessment and Plan: Simran glabrata growing in blood. By far, most likely etiology would be inoculation into the blood stream from open wound Continue IV micafungin, daily. Follow results of echocardiogram. Repeat daily blood cultures. Currently no signs of sepsis: No fevers or chills, white count is 6.3, and blood pressure is stable. Continue to monitor closely. Id on consult, appreciate recommendations. 12/23/20 17:0 patient is a 60-year-old male morbidly obese with right eryib-[id number]-xygs amputation and left AKA with unstageable sacral decubitus ulcer seen by ID does not suspect an infection, patient was seen by surgery service and was taken today with for wound debridement and currently patient is in recovery room, has no complaints, patient has fungemia Simran glabrata growing in blood, seen by ID being treated IV micafungin, daily. will continue to monitor and appreciate ID and surgery service. 12/24 today patient seen medical floor lying in his bed uncomfortable states the bed is uncomfortable unable to maneuver, discussed with charge nurse and they will recheck the bed, patient is postop day 1,decubitus ulcer Status post debridement patient remains clinically stable, patient with fungemia being treated with IV micafungin, daily patient seen by ID and further recommendation to follow, patient seen by PT OT will continue, will monitor and further recommendation to follow. 12/25 patient remains clinically stable seen by surgery service and recommended diverting colostomy to prevent wound contamination on this will keep wound clean patient is a grade for the procedure, will place the patient hearin 5000u TID and will stop on Tuesday evening before surgery on Tuesday, communicated with nurse Enrique. Patent seen by ID and there is concern for OM and bacteremia with C glabrata BSI, ID recommending Vanc IV and Micafungin thruogh 12/28, Zosyn #08/20 until 01/18 and continue vanc BID also through 01/18 to prevent of repapesed C diff infection. (2) Osteomyelitis: Code(s): M86.9 - Osteomyelitis, unspecified Status: Acute Assessment and Plan: Concern for osteomyelitis based on the fact that physical exam shows sacral ulcer is palpable to bone; however as ID noted, ulcer not clearly infected, and will avoid antibacterials unless required, as patient has multiple C diff infections in the last few years. Pull PICC line Hold Fidaxomicin. Consulted surgery to help with debridement. Wound culture ordered, to help keep antibiotics narrow. Id on consult, appreciate recommendations. (3) Chronic atrial fibrillation with RVR: Code(s): I48.20 - Chronic atrial fibrillation, unspecified Status: Acute Assessment and Plan: Hold anticoagulation in setting of acute hematuria. Cardiology on board and recommending Coreg and digoxin, will continue (4) Gross hematuria: Code(s): R31.0 - Gross hematuria Status: Acute Assessment and Plan: Has undergone irrigation of Abarca with Urology. Would ideally require CT urogram, however as noted by Urology, habitus would preclude undergoing this test at this facility. Will likely have to be done as an outpatient. Right now, Abarca bag looks completely yellow, no real evidence of blood, and certainly no clots today so far. (5) Acute UTI: Code(s): N39.0 - Urinary tract infection, site not specified Status: Acute Assessment and Plan: Possible cause of hematuria. No growth in urine, will complete empiric UTI therapy, current covered by Zosyn. (6) Diabetes: Code(s): E11.9 - Type 2 diabetes mellitus without complications Status: Acute Assessment and Plan: Morbidly obese, continue insulin therapy with 25 basal Lantus, and sliding scale. Additional Plan The patient has chronic atrial fibrillation with acute AFib RVR.
--- NOTE | 2020-12-25 14:51 | WPDINFPN2 ---
Progress Note: A&P Assessment and Plan (1) Gross hematuria: Code(s): R31.0 - Gross hematuria Status: Acute Assessment and Plan: 1. Hematuria, culture negative, chronic catheter 2. CNSS and C glabrata BSI, PICC source. Repeat BCs ngsf 3. Decubitus ulcer with OM of sacrum/coccyx. No pathogens isolated so far. POD # 2. Intraoperative findings suspicious for OM, path is pending 4. Recurrent C diff colitis, not active. REC Vanc IV and Micafungin through 12/28. PipTazo # , through 01/18. New PICC once stable. Oral vanc bid, also through 01/18, for prevention of relapsed C diff infection. Subjective Date/time seen: 12/25/20 14:51 Interval history: no diarrhea, no abd pain. Exam Narrative: afebrile Const: General: no acute distress Resp: Effort & Inspection: normal respiratory effort Auscultation: clear to auscultation bilaterally Cardio: Rate: regular rate Rhythm: regular rhythm Heart sounds: no murmurs GI: Inspection: distended GI Palp: Yes Firmness to palpation present (GI), No Tenderness to palpation present (GI) and No Guarding due to palpation present (GI) Auscultation: normal bowel sounds Urinary Catheter: Urinary Catheter: patent and draining and urine clear Skin: General skin exam: normal color and no rashes or lesions noted Objective Data Vital Signs Vital Signs: Vital Signs - 24 hr 12/24/20 15:50 12/24/20 18:35 12/24/20 22:00 Temperature 35.8 C L 36.1 C L Pulse Rate 62 72 59 L Respiratory Rate 18 20 Blood Pressure 113/47 L 116/47 L Pulse Oximetry 99 100 12/25/20 06:04 12/25/20 08:30 12/25/20 08:31 Temperature 36.1 C L Pulse Rate 56 L 68 68 Respiratory Rate 20 Blood Pressure 131/50 L Pulse Oximetry 98 Intake/Output Intake/Output: Intake & Output 12/22/20 12/23/20 12/24/20 12/25/20 23:59 23:59 23:59 23:59 Intake Total 5880 2600 3907 2220 Output Total 2800 4100 1875 1600 Balance 3080 -1500 2032 620 Meds/Results Medications: Active Medications Generic Name Dose Route Start Last Admin Trade Name Freq PRN Reason Stop Dose Admin Hydrocodone Bitart/Acetaminophen 1 tab 12/20/20 05:20 12/25/20 04:05 Hydrocodone/Acetaminophen (*Crx) 5-325 Mg Tablet FEED TUBE 1 tab Q6H PRN Administration Pain 4-10 Carvedilol 12.5 mg 12/20/20 08:00 12/25/20 08:30 Carvedilol 12.5 Mg Tablet FEED TUBE 12.5 mg BIDWM FAROOQ Administration Dextrose 12.5 gm 12/20/20 05:22 Dextrose 50% 25 Gm/50 Ml Syringe IV PUSH PRN PRN Hypoglycemia Protocol Digoxin 250 mcg 12/21/20 09:00 12/25/20 08:31 Digoxin 250 Mcg Tablet PO 250 mcg QAM FAROOQ Administration Ergocalciferol 50,000 unit 12/23/20 09:00 12/23/20 20:59 Ergocalciferol 50,000 Unit Capsule FEED TUBE 50,000 unit WEEKLY FAROOQ Administration Glucagon 1 mg 12/20/20 05:22 Glucagon For Inj 1 Mg Vial IM PRN PRN Hypoglycemia Protocol Glucose 15 gm 12/20/20 05:22 Glucose Oral Gel 15 Gm Of Glucse In 37.5 Gm Tube PO PRN PRN Hypoglycemia Protocol Sodium Chloride 1,000 mls @ 75 mls/hr 12/20/20 01:10 12/25/20 13:15 Normal Saline Iv IV CONT 75 mls/hr .[id number] FAROOQ Administration Dextrose 1,000 mls @ 100 mls/hr 12/20/20 05:22 Dextrose 5% 1,000 Ml IVPB PRN PRN Hypoglycemia Protocol Acetaminophen 1,000 mg in 100 mls @ 400 mls/hr 12/20/20 18:00 12/20/20 22:33 Ofirmev 1,000 Mg Ivpb IVPB Infused Q6HR PRN Infusion Fever > 100.4 Micafungin Sodium 100 mg/ 100 mls @ 100 mls/hr 12/22/20 13:00 12/24/20 16:17 Sodium Chloride IVPB 12/28/20 23:59 Infused Q24H FAROOQ Infusion Vancomycin HCl 2,000 mg in 500 mls @ 250 mls/hr 12/25/20 10:00 12/25/20 10:07 Vancomycin 2,000 Mg/D5w 500 Ml IVPB 250 mls/hr Q36H FAROOQ Administration Piperacillin/Tazobactam/Dextrose 3.375 gm in 50 mls @ 100 mls/hr 12/25/20 14:50 Zosyn 3.375 Gm/D5w 50ml Pm IVPB 01/18/21 23:59 Q6H FAROOQ Insulin Aspart 3
[2020-12-25] MEDS: MICAFUNGIN SODIUM 100 MG in SODIUM CHLORIDE 0.9% IV 100 ML IVPB (15:15)
[2020-12-25 15:59] VITALS: BP 139/59; PULSE 59; RESP 18; TEMP 36.7; O2SAT 98
[2020-12-25 18:19] VITALS: PULSE 60
[2020-12-25] MEDS: HEPARIN SODIUM 5,000 UNITS/ML VIAL 5000 UNITS SUB-Q ×2 (18:21→21:17)
[2020-12-25 18:32] LABS: Glucose Point of Care 277 mg/dl (65-105)
[2020-12-25 19:59] VITALS: BP 127/57; PULSE 52; RESP 17; TEMP 36.2; O2SAT 97
[2020-12-25] MEDS: VANCOMYCIN ORAL 125 MG/2.5 ML SYRUP PO (21:19)
[2020-12-25] MEDS: INSULIN GLARGINE (*BKC) 100 UNITS/ML 25 UNITS SUB-Q (21:25)
[2020-12-25 21:43] LABS: Glucose Point of Care 286 mg/dl (65-105)
[2020-12-26] MEDS: SODIUM CHLORIDE 0.9% IV 1,000 ML 75 ML IV CONT (05:30)
[2020-12-26] MEDS: HEPARIN SODIUM 5,000 UNITS/ML VIAL 5000 UNITS SUB-Q ×3 (05:30→21:02)
[2020-12-26] MEDS: TOLNAFTATE 1% POWDER 45 GM BTL 1 APPLIC TOPICAL ×3 (05:31→21:03)
[2020-12-26 06:44] VITALS: BP 122/44; PULSE 61; RESP 18; TEMP 36.6; O2SAT 97
[2020-12-26] MEDS: HYDROcodone/acetaminophen (*CRX) 5-325 MG TABLET 1 TAB FEED TUBE ×2 (06:44→21:06)
[2020-12-26 08:36] VITALS: PULSE 62
[2020-12-26] MEDS: carvediloL 12.5 MG TABLET FEED TUBE ×2 (08:36→18:10)
[2020-12-26 08:37] VITALS: PULSE 62
[2020-12-26] MEDS: DIGOXIN 250 MCG TABLET PO (08:37)
[2020-12-26] MEDS: PANTOPRAZOLE 40 MG TABLET PO ×2 (08:37→20:57)
[2020-12-26 08:44] LABS: Glucose Point of Care 160 mg/dl (65-105)
[2020-12-26] MEDS: VANCOMYCIN ORAL 125 MG/2.5 ML SYRUP PO ×2 (10:32→20:56)
[2020-12-26 10:37] LABS: Anion Gap 7 mmol/L (8-16); Blood Urea Nitrogen 8 mg/dL (9-20); Calcium 7.2 mg/dL (8.4-10.2); Carbon Dioxide 19 mmol/L (22-30); Chloride 108 mmol/L (98-107); Estimated CRCL calculation 134 ml/min; Estimated Glomerular Filt Rate > 60; Glucose 194 mg/dL (65-110); Potassium 2.8 mmol/L (3.4-5.0); Sodium 134 mmol/L (137-145)
[2020-12-26] MEDS: POTASSIUM CHLORIDE 20 MEQ TABLET 40 MEQ PO (11:02)
[2020-12-26 11:08] LABS: Hematocrit 25.5 % (42.0-52.0); Hemoglobin 7.6 g/dL (14.0-18.0); Mean Corpuscular HGB Conc 29.8 g/dl (32-36); Mean Corpuscular Hemoglobin 26.2 pg (26-34); Mean Corpuscular Volume 87.9 fl (80-100); Mean Platelet Volume 9.1 fl (7.4-10.4); Platelet Count Result 176 k/mm3 (150-375); Red Cell Distribution Width 20.2 % (11.5-14.5); White Blood Count 8.2 K/mm3 (4.5-10.0)
--- NOTE | 2020-12-26 11:41 | PM.IMPN ---
Progress Note: A&P Assessment and Plan (1) Fungemia: Code(s): B49 - Unspecified mycosis Status: Acute Assessment and Plan: Simran glabrata growing in blood. By far, most likely etiology would be inoculation into the blood stream from open wound Continue IV micafungin, daily. Follow results of echocardiogram. Repeat daily blood cultures. Currently no signs of sepsis: No fevers or chills, white count is 6.3, and blood pressure is stable. Continue to monitor closely. Id on consult, appreciate recommendations. 12/26/20 11:41 12/23 patient is a 60-year-old male morbidly obese with right dtbmq-flw-kige amputation and left AKA with unstageable sacral decubitus ulcer seen by ID does not suspect an infection, patient was seen by surgery service and was taken today with for wound debridement and currently patient is in recovery room, has no complaints, patient has fungemia Simran glabrata growing in blood, seen by ID being treated IV micafungin, daily. will continue to monitor and appreciate ID and surgery service. 12/24 today patient seen medical floor lying in his bed uncomfortable states the bed is uncomfortable unable to maneuver, discussed with charge nurse and they will recheck the bed, patient is postop day 1,decubitus ulcer Status post debridement patient remains clinically stable, patient with fungemia being treated with IV micafungin, daily patient seen by ID and further recommendation to follow, patient seen by PT OT will continue, will monitor and further recommendation to follow. 12/25 patient remains clinically stable seen by surgery service and recommended diverting colostomy to prevent wound contamination on this will keep wound clean patient is a grade for the procedure, will place the patient hearin 5000u TID and will stop on Tuesday evening before surgery on Tuesday, communicated with nurse Enrique. Patent seen by ID and there is concern for OM and bacteremia with C glabrata BSI, ID recommending Vanc IV and Micafungin thruogh 12/28, Zosyn #08/20 until 01/18 and continue vanc BID also through 01/18 to prevent of repapesed C diff infection. 12/26 patient remains clinically stable seen by surgery service and recommended diverting colostomy to prevent wound contamination this will keep wound clean, and will not get soiled, surgery scheduled for Tuesday, will place the patient hearin 5000u TID and will stop on Tuesday evening before surgery on Tuesday, on 12/25 communicated with nurse Iva. Patent seen by ID and there is concern for OM and bacteremia with C glabrata BSI, ID recommending Vanc IV and Micafungin thruogh 12/28, Zosyn #09/19 until 01/18 and continue vanc BID also through 01/18 to prevent of relapsed of C diff infection. (2) Osteomyelitis: Code(s): M86.9 - Osteomyelitis, unspecified Status: Acute Assessment and Plan: Concern for osteomyelitis based on the fact that physical exam shows sacral ulcer is palpable to bone; however as ID noted, ulcer not clearly infected, and will avoid antibacterials unless required, as patient has multiple C diff infections in the last few years. Pull PICC line Hold Fidaxomicin. Consulted surgery to help with debridement. Wound culture ordered, to help keep antibiotics narrow. Id on consult, appreciate recommendations. (3) Chronic atrial fibrillation with RVR: Code(s): I48.20 - Chronic atrial fibrillation, unspecified Status: Acute Assessment and Plan: Hold anticoagulation in setting of acute hematuria. Cardiology on board and recommending Coreg and digoxin, will continue (4) Gross hematuria: Code(s): R31.0 - Gross hematuria Status: Acute Assessment and Plan: Has undergone irrigation of Abarca with Urology. Would ideally require CT urogram, however as noted by Urology, habitus would preclude undergoing this test at this facility. Will likely have to be done as an outpatient. Right now, Abarca bag looks completely yellow, no re
[2020-12-26] MEDS: SOD HYPOCHLORITE 1/4 STRENGTH 473 ML 1 APPLIC TOPICAL ×2 (12:02→20:57)
[2020-12-26] MEDS: POVIDONE-IODINE 10% OINT 30 GM TUBE 1 APPLIC TOPICAL (12:02)
[2020-12-26 12:12] LABS: Glucose Point of Care 213 mg/dl (65-105)
[2020-12-26] MEDS: INSULIN ASPART (*BKC) 100 UNITS/ML SUB-Q ×2 (12:46→18:03)
--- NOTE | 2020-12-26 12:59 | WPDUROPN2 ---
Progress Note: A&P Assessment and Plan (1) Hematuria: Code(s): R31.9 - Hematuria, unspecified Status: Acute Assessment and Plan: Resolved. Plan to f/u when stable as outpatient for evaluation of a cysto. Will need to be done in the OR d/t mobility. (2) Urinary retention: Code(s): R33.9 - Retention of urine, unspecified Status: Acute Assessment and Plan: The patient should keep his shaw in and have monthly catheter changes while in rehab or with home health. He is unable to ambulate and has extensive buttock wounds. He is unable to hold a urinal and this would result in total urinary incontinence which would worsen is already poor sacral wounds. Patient is aware that chronic shaw catheters may increase your risk for UTI, but unfortunatley d/t his immobiblity this is the best plan for him ongoing. He agrees. Subjective Subjective Date/Time Seen: 12/26/20 12:59 urine clear yellow off CBI culture negative Review of Systems Cardiovascular: Cardiovascular: Denies chest pain Respiratory: Respiratory: Reports no additional respiratory complaints Gastrointestinal: Gastrointestinal: Reports abdominal pain, Denies nausea and Denies vomiting Genitourinary: Genitourinary: Reports other (patient states he cannot hold a urinal and is afraid to have shaw removed) Exam Resp: Effort & Inspection: normal respiratory effort Cardio: Rate: regular rate GI: GI Palp: Yes Soft to palpation and Yes Tenderness to palpation present (GI) : General: Yes deferred (patient unable to sit up to examine CVA) Urinary Catheter: Urinary Catheter: patent and draining and urine clear Extrem: General: other (BLE amputation) Objective Data Vital Signs Vital Signs: Vital Signs - 24 hr 12/25/20 15:59 12/25/20 18:19 12/25/20 19:59 Temperature 98.0 F 97.1 F L Pulse Rate 59 L 60 52 L Respiratory Rate 18 17 Blood Pressure 139/59 L 127/57 L Pulse Oximetry 98 97 12/26/20 06:44 12/26/20 08:36 12/26/20 08:37 Temperature 97.8 F Pulse Rate 61 62 62 Respiratory Rate 18 Blood Pressure 122/44 L Pulse Oximetry 97 Intake/Output Intake/Output: Intake & Output 12/23/20 12/24/20 12/25/20 12/26/20 23:59 23:59 23:59 23:59 Intake Total 2600 3907 3320 1740 Output Total 4100 1875 3000 1550 Balance -1500 2032 320 190 Meds/Results Medications: Active Medications Generic Name Dose Route Start Last Admin Trade Name Freq PRN Reason Stop Dose Admin Hydrocodone Bitart/Acetaminophen 1 tab 12/20/20 05:20 12/26/20 06:44 Hydrocodone/Acetaminophen (*Crx) 5-325 Mg Tablet FEED TUBE 1 tab Q6H PRN Administration Pain 4-10 Carvedilol 12.5 mg 12/20/20 08:00 12/26/20 08:36 Carvedilol 12.5 Mg Tablet FEED TUBE 12.5 mg BIDWM FAROOQ Administration Dextrose 12.5 gm 12/20/20 05:22 Dextrose 50% 25 Gm/50 Ml Syringe IV PUSH PRN PRN Hypoglycemia Protocol Digoxin 250 mcg 12/21/20 09:00 12/26/20 08:37 Digoxin 250 Mcg Tablet PO 250 mcg QAM FAROOQ Administration Ergocalciferol 50,000 unit 12/23/20 09:00 12/23/20 20:59 Ergocalciferol 50,000 Unit Capsule FEED TUBE 50,000 unit WEEKLY FAROOQ Administration Glucagon 1 mg 12/20/20 05:22 Glucagon For Inj 1 Mg Vial IM PRN PRN Hypoglycemia Protocol Glucose 15 gm 12/20/20 05:22 Glucose Oral Gel 15 Gm Of Glucse In 37.5 Gm Tube PO PRN PRN Hypoglycemia Protocol Heparin Sodium (Porcine) 5,000 units 12/25/20 15:10 12/26/20 05:30 Heparin Sodium 5,000 Units/Ml Vial SUB-Q 12/29/20 14:00 5,000 units Q8HR FAROOQ Administration Sodium Chloride 1,000 mls @ 75 mls/hr 12/20/20 01:10 12/26/20 05:30 Normal Saline Iv IV CONT 75 mls/hr .[id number] FAROOQ Administration Dextrose 1,000 mls @ 100 mls/hr 12/20/20 05:22 Dextrose 5% 1,000 Ml IVPB PRN PRN Hypoglycemia Protocol Acetaminophen 1,000 mg in 100 mls @ 400 mls/hr 12/20/20 18:00 12/20/20 22:3
--- NOTE | 2020-12-26 15:57 | PCDIET ---
Nutrition Follow-Up Complete: Inadequate oral intake related to diet order as evidenced by clear liquid. Patient to meet estimated nutritional needs. Goal: Goal not met. Continue goal. Pt current nutrition is Full liquid +Glucerna TID, Banatrol Nutrition recommendation: Add Glenn to aid in wound healing Last recorded weight is 140.2 kg, recommend updated wt; no new wt Bowel Motility: 4 BMs today; banatrol on board; recommend addition of S.Boulardi Labs Reviewed:Hgb 7.6, Hct 25.5, Na 134, K 2.8, BUN 8, Glucose 194 Meds Noted:Lantus, Protonix, zosyn, KCL, novolog, heparin, norco Additional Notes: Pt advanced to full liquids. Several skin issues. Pt drinking Glucerna protein/kcal shakes every meals. Glenn added BID to aid in wound healing. Encouraged pt to focus on fruit, veggies, proteins to aid in wound healing when diet advances. Recommend a consistent carb/heart healthy diet. We will continue to follow for diet progression and wound healing every five days.
[2020-12-26] MEDS: MICAFUNGIN SODIUM 100 MG in SODIUM CHLORIDE 0.9% IV 100 ML IVPB (16:12)
[2020-12-26 16:28] VITALS: BP 122/49; PULSE 50; RESP 16; TEMP 36.6; O2SAT 100
[2020-12-26 17:14] LABS: Anion Gap 7 mmol/L (8-16); Blood Urea Nitrogen 7 mg/dL (9-20); Calcium 7.2 mg/dL (8.4-10.2); Carbon Dioxide 21 mmol/L (22-30); Chloride 105 mmol/L (98-107); Estimated CRCL calculation 119 ml/min; Estimated Glomerular Filt Rate > 60; Glucose 239 mg/dL (65-110); Magnesium 1.7 mg/dL (1.6-2.3); Potassium 3.1 mmol/L (3.4-5.0); Sodium 133 mmol/L (137-145)
[2020-12-26 17:57] LABS: Glucose Point of Care 210 mg/dl (65-105)
[2020-12-26 18:10] VITALS: PULSE 58
[2020-12-26] MEDS: POTASSIUM CHLORIDE 20 MEQ PACKET (FOR LIQUID) 40 MEQ PO (21:02)
[2020-12-26] MEDS: INSULIN GLARGINE (*BKC) 100 UNITS/ML 25 UNITS SUB-Q (21:12)
[2020-12-26 21:15] LABS: Vancomycin Trough 13.6 ug/mL (10.0-20.0)
[2020-12-26 22:00] LABS: Glucose Point of Care 254 mg/dl (65-105)
[2020-12-26 22:20] VITALS: BP 133/49; PULSE 55; RESP 20; TEMP 36.4; O2SAT 99
[2020-12-27] MEDS: SODIUM CHLORIDE 0.9% IV 1,000 ML 75 ML IV CONT ×2 (00:01→17:17)
[2020-12-27] MEDS: TOLNAFTATE 1% POWDER 45 GM BTL 1 APPLIC TOPICAL ×3 (06:17→22:03)
[2020-12-27] MEDS: HEPARIN SODIUM 5,000 UNITS/ML VIAL 5000 UNITS SUB-Q ×3 (06:17→22:02)
[2020-12-27 07:46] LABS: Hematocrit 25.5 % (42.0-52.0); Hemoglobin 7.6 g/dL (14.0-18.0); Mean Corpuscular HGB Conc 29.8 g/dl (32-36); Mean Corpuscular Hemoglobin 26.2 pg (26-34); Mean Corpuscular Volume 87.9 fl (80-100); Mean Platelet Volume 8.9 fl (7.4-10.4); Platelet Count Result 205 k/mm3 (150-375); White Blood Count 8.7 K/mm3 (4.5-10.0)
[2020-12-27 07:50] LABS: Glucose Point of Care 138 mg/dl (65-105)
[2020-12-27 07:59] LABS: Anion Gap 6 mmol/L (8-16); Blood Urea Nitrogen 8 mg/dL (9-20); Calcium 7.4 mg/dL (8.4-10.2); Carbon Dioxide 21 mmol/L (22-30); Chloride 108 mmol/L (98-107); Estimated CRCL calculation 154 ml/min; Estimated Glomerular Filt Rate > 60; Glucose 160 mg/dL (65-110); Potassium 3.2 mmol/L (3.4-5.0); Sodium 135 mmol/L (137-145)
[2020-12-27 08:00] VITALS: BP 140/53; PULSE 61; RESP 18; TEMP 36.2; O2SAT 99
[2020-12-27 08:45] VITALS: PULSE 84
[2020-12-27] MEDS: DIGOXIN 250 MCG TABLET PO (08:45)
[2020-12-27] MEDS: PANTOPRAZOLE 40 MG TABLET PO ×2 (08:45→20:06)
[2020-12-27 08:46] VITALS: PULSE 84
[2020-12-27] MEDS: POVIDONE-IODINE 10% OINT 30 GM TUBE 1 APPLIC TOPICAL (08:46)
[2020-12-27] MEDS: SOD HYPOCHLORITE 1/4 STRENGTH 473 ML 1 APPLIC TOPICAL ×2 (08:46→20:11)
[2020-12-27] MEDS: carvediloL 12.5 MG TABLET FEED TUBE ×2 (08:46→17:55)
[2020-12-27] MEDS: VANCOMYCIN ORAL 125 MG/2.5 ML SYRUP PO ×2 (08:46→20:06)
[2020-12-27] MEDS: HYDROcodone/acetaminophen (*CRX) 5-325 MG TABLET 1 TAB FEED TUBE ×2 (08:49→20:12)
[2020-12-27 13:20] LABS: Glucose Point of Care 207 mg/dl (65-105)
[2020-12-27] MEDS: INSULIN ASPART (*BKC) 100 UNITS/ML SUB-Q ×2 (13:37→17:54)
--- NOTE | 2020-12-27 14:21 | PM.IMPN ---
Progress Note: A&P Assessment and Plan (1) Fungemia: Code(s): B49 - Unspecified mycosis Status: Acute Assessment and Plan: Simran glabrata growing in blood. By far, most likely etiology would be inoculation into the blood stream from open wound Continue IV micafungin, daily. Follow results of echocardiogram. Repeat daily blood cultures. Currently no signs of sepsis: No fevers or chills, white count is 6.3, and blood pressure is stable. Continue to monitor closely. Id on consult, appreciate recommendations. 12/26/20 11:41 12/23 patient is a 60-year-old male morbidly obese with right [id number]-[id number] amputation and left AKA with unstageable sacral decubitus ulcer seen by ID does not suspect an infection, patient was seen by surgery service and was taken today with for wound debridement and currently patient is in recovery room, has no complaints, patient has fungemia Simran glabrata growing in blood, seen by ID being treated IV micafungin, daily. will continue to monitor and appreciate ID and surgery service. 12/24 today patient seen medical floor lying in his bed uncomfortable states the bed is uncomfortable unable to maneuver, discussed with charge nurse and they will recheck the bed, patient is postop day 1,decubitus ulcer Status post debridement patient remains clinically stable, patient with fungemia being treated with IV micafungin, daily patient seen by ID and further recommendation to follow, patient seen by PT OT will continue, will monitor and further recommendation to follow. 12/25 patient remains clinically stable seen by surgery service and recommended diverting colostomy to prevent wound contamination on this will keep wound clean patient is a grade for the procedure, will place the patient hearin 5000u TID and will stop on Tuesday evening before surgery on Tuesday, communicated with nurse Ernique. Patent seen by ID and there is concern for OM and bacteremia with C glabrata BSI, ID recommending Vanc IV and Micafungin thruogh 12/28, Zosyn #08/20 until 01/18 and continue vanc BID also through 01/18 to prevent of repapesed C diff infection. 12/26 patient remains clinically stable seen by surgery service and recommended diverting colostomy to prevent wound contamination this will keep wound clean, and will not get soiled, surgery scheduled for Tuesday, will place the patient hearin 5000u TID and will stop on Tuesday evening before surgery on Tuesday, on 12/25 communicated with nurse Iva. Patent seen by ID and there is concern for OM and bacteremia with C glabrata BSI, ID recommending Vanc IV and Micafungin thruogh 12/28, Zosyn #09/19 until 01/18 and continue vanc BID also through 01/18 to prevent of relapsed of C diff infection. 12/27: Zosyn & PO Vanc Day 10/20 (2) Osteomyelitis: Code(s): M86.9 - Osteomyelitis, unspecified Status: Acute Assessment and Plan: Concern for osteomyelitis based on the fact that physical exam shows sacral ulcer is palpable to bone; however as ID noted, ulcer not clearly infected, and will avoid antibacterials unless required, as patient has multiple C diff infections in the last few years. Pulled PICC line Consulted surgery to assist with debridement. (3) Chronic atrial fibrillation with RVR: Code(s): I48.20 - Chronic atrial fibrillation, unspecified Status: Acute Assessment and Plan: Hold anticoagulation in setting of acute hematuria. Cardiology following and recommending Coreg and digoxin, will continue (4) Gross hematuria: Code(s): R31.0 - Gross hematuria Status: Acute Assessment and Plan: Has undergone irrigation of Abarca with Urology. Would ideally require CT urogram, however as noted by Urology, habitus would preclude undergoing this test at this facility. Will likely have to be done as an outpatient. Right now, Abarca bag looks completely yellow, no real evidence of blood, and certainly no clots today so far. (5) Acute UTI:
[2020-12-27] MEDS: MICAFUNGIN SODIUM 100 MG in SODIUM CHLORIDE 0.9% IV 100 ML IVPB (14:52)
[2020-12-27 16:00] VITALS: BP 140/46; PULSE 50; RESP 18; TEMP 36.6; O2SAT 100
[2020-12-27 17:55] VITALS: PULSE 98
[2020-12-27] MEDS: POTASSIUM CHLORIDE 20 MEQ TABLET 40 MEQ PO ×2 (17:55→22:00)
[2020-12-27 18:23] LABS: Glucose Point of Care 264 mg/dl (65-105)
[2020-12-27 20:03] VITALS: BP 112/48; PULSE 77; RESP 18; TEMP 36.6; O2SAT 100
[2020-12-27] MEDS: INSULIN GLARGINE (*BKC) 100 UNITS/ML 25 UNITS SUB-Q (20:05)
[2020-12-27 20:48] LABS: Glucose Point of Care 248 mg/dl (65-105)
[2020-12-28] MEDS: HEPARIN SODIUM 5,000 UNITS/ML VIAL 5000 UNITS SUB-Q ×3 (06:21→21:08)
[2020-12-28] MEDS: TOLNAFTATE 1% POWDER 45 GM BTL 1 APPLIC TOPICAL ×3 (06:21→21:08)
[2020-12-28 06:33] VITALS: BP 114/56; PULSE 51; RESP 18; TEMP 36.3; O2SAT 99
[2020-12-28] MEDS: HYDROcodone/acetaminophen (*CRX) 5-325 MG TABLET 1 TAB FEED TUBE ×2 (06:53→20:09)
[2020-12-28 07:51] LABS: Glucose Point of Care 149 mg/dl (65-105)
[2020-12-28] MEDS: SODIUM CHLORIDE 0.9% IV 1,000 ML 75 ML IV CONT (08:39)
[2020-12-28 08:41] VITALS: PULSE 82
[2020-12-28] MEDS: carvediloL 12.5 MG TABLET FEED TUBE (08:41)
[2020-12-28] MEDS: VANCOMYCIN ORAL 125 MG/2.5 ML SYRUP PO ×2 (08:41→20:09)
[2020-12-28] MEDS: DIGOXIN 250 MCG TABLET PO (08:41)
[2020-12-28] MEDS: PANTOPRAZOLE 40 MG TABLET PO ×2 (08:41→20:09)
[2020-12-28] MEDS: SOD HYPOCHLORITE 1/4 STRENGTH 473 ML 1 APPLIC TOPICAL ×2 (08:42→20:09)
[2020-12-28] MEDS: POVIDONE-IODINE 10% OINT 30 GM TUBE 1 APPLIC TOPICAL (08:42)
[2020-12-28 09:54] LABS: Hematocrit 25.5 % (42.0-52.0); Hemoglobin 7.5 g/dL (14.0-18.0); Mean Corpuscular HGB Conc 29.4 g/dl (32-36); Mean Corpuscular Hemoglobin 26.7 pg (26-34); Mean Corpuscular Volume 90.7 fl (80-100); Mean Platelet Volume 8.7 fl (7.4-10.4); Platelet Count Result 228 k/mm3 (150-375); Red Blood Count 2.81 M/mm3 (4.6-6.20); Red Cell Distribution Width 21.4 % (11.5-14.5); White Blood Count 8.2 K/mm3 (4.5-10.0)
[2020-12-28 10:13] LABS: Anion Gap 3 mmol/L (8-16); Blood Urea Nitrogen 7 mg/dL (9-20); Calcium 7.5 mg/dL (8.4-10.2); Carbon Dioxide 24 mmol/L (22-30); Chloride 108 mmol/L (98-107); Estimated CRCL calculation 163 ml/min; Estimated Glomerular Filt Rate > 60; Glucose 183 mg/dL (65-110); Magnesium 1.6 mg/dL (1.6-2.3); Potassium 3.4 mmol/L (3.4-5.0); Sodium 135 mmol/L (137-145)
--- NOTE | 2020-12-28 11:31 | P.PNIM_ITS ---
Progress Note: A&P Assessment and Plan (1) Fungemia: Code(s): B49 - Unspecified mycosis Status: Acute Assessment and Plan: Simran glabrata growing in blood. By far, most likely etiology would be inoculation into the blood stream from open wound Continue IV micafungin, daily. Follow results of echocardiogram. Repeat daily blood cultures. Currently no signs of sepsis: No fevers or chills, white count is 6.3, and blood pressure is stable. Continue to monitor closely. Id on consult, appreciate recommendations. 12/26/20 11:41 12/23 patient is a 60-year-old male morbidly obese with right wqzaa-dac-ospb amputation and left AKA with unstageable sacral decubitus ulcer seen by ID does not suspect an infection, patient was seen by surgery service and was taken today with for wound debridement and currently patient is in recovery room, has no complaints, patient has fungemia Simran glabrata growing in blood, seen by ID being treated IV micafungin, daily. will continue to monitor and appreciate ID and surgery service. 12/24 today patient seen medical floor lying in his bed uncomfortable states the bed is uncomfortable unable to maneuver, discussed with charge nurse and they will recheck the bed, patient is postop day 1,decubitus ulcer Status post debridement patient remains clinically stable, patient with fungemia being treated with IV micafungin, daily patient seen by ID and further recommendation to follow, patient seen by PT OT will continue, will monitor and further recommendation to follow. 12/25 patient remains clinically stable seen by surgery service and recommended diverting colostomy to prevent wound contamination on this will keep wound clean patient is a grade for the procedure, will place the patient hearin 5000u TID and will stop on Tuesday evening before surgery on Tuesday, communicated with nurse Enrique. Patent seen by ID and there is concern for OM and bacteremia with C glabrata BSI, ID recommending Vanc IV and Micafungin thruogh 12/28, Zosyn #08/20 until 01/18 and continue vanc BID also through 01/18 to prevent of repapesed C diff infection. 12/26 patient remains clinically stable seen by surgery service and recommended diverting colostomy to prevent wound contamination this will keep wound clean, and will not get soiled, surgery scheduled for Tuesday, will place the patient hearin 5000u TID and will stop on Tuesday evening before surgery on Tuesday, on 12/25 communicated with nurse Iva. Patent seen by ID and there is concern for OM and bacteremia with C glabrata BSI, ID recommending Vanc IV and Micafungin thruogh 12/28, Zosyn #09/19 until 01/18 and continue vanc BID also through 01/18 to prevent of relapsed of C diff infection. 12/28: Zosyn & PO Vanc Day 11/19 (2) Osteomyelitis: Code(s): M86.9 - Osteomyelitis, unspecified Status: Acute Assessment and Plan: Concern for osteomyelitis based on the fact that physical exam shows sacral ulcer is palpable to bone; however as ID noted, ulcer not clearly infected, and will avoid antibacterials unless required, as patient has multiple C diff infections in the last few years. Pulled PICC line Consulted surgery to assist with debridement. (3) Chronic atrial fibrillation with RVR: Code(s): I48.20 - Chronic atrial fibrillation, unspecified Status: Acute Assessment and Plan: Hold anticoagulation in setting of acute hematuria. Cardiology following and recommending Coreg and digoxin, will continue (4) Gross hematuria: Code(s): R31.0 - Gross hematuria Status: Acute Assessment and Plan: Has undergone irrigation of Abarca with Urology. Would ideal
[2020-12-28 12:21] LABS: Glucose Point of Care 184 mg/dl (65-105)
[2020-12-28] MEDS: MICAFUNGIN SODIUM 100 MG in SODIUM CHLORIDE 0.9% IV 100 ML IVPB (14:23)
[2020-12-28 14:27] VITALS: BP 142/53; PULSE 98; RESP 18; TEMP 36.6; O2SAT 99
--- NOTE | 2020-12-28 16:09 | WPDINFPN2 ---
Progress Note: A&P Additional Plan 1. Hematuria, culture negative, chronic catheter. 2. CNSS and C glabrata BSI, PICC source. Repeat BCs ngsf 3. Decubitus ulcer with OM of sacrum/coccyx. No pathogens isolated so far. POD # 4. Continue Zosyn day 6 of 28 days. Vancomycin and Mycamine through 12/28/2020. Intraoperative findings suspicious for OM, path is pending. Possible plan for diverting colostomy [facility] next week. 4. Recurrent C diff colitis, not active. Patient is currently on vancomycin p.o. b.i.d. through 01/18/2021. Subjective Date/time seen: 12/28/20 16:09 Exam Neck: Neck: normal visual inspection Resp: Effort & Inspection: normal respiratory effort Auscultation: clear to auscultation bilaterally Cardio: Jugular venous distension: no JVD Palpation: normal PMI Rate: regular rate Rhythm: regular rhythm Heart sounds: S1 normal heart sound present and S2 normal heart sound present GI: Other: Positive bowel sounds nontender. G-tube in place. : Other: Indwelling catheter in place. Skin: Other: Decubitus as well as a right BKA stump site ulcerations. Neuro: Other: Alert and awake. Answering questions appropriately. Moves all extremities. Objective Data Vital Signs Vital Signs: Vital Signs - 24 hr 12/27/20 17:55 12/27/20 20:03 12/28/20 06:33 Temperature 36.6 C 36.3 C L Pulse Rate 98 77 51 L Respiratory Rate 18 18 Blood Pressure 112/48 L 114/56 L Pulse Oximetry 100 99 12/28/20 08:41 12/28/20 14:27 Temperature 36.6 C Pulse Rate 82 98 Respiratory Rate 18 Blood Pressure 142/53 H Pulse Oximetry 99 Intake/Output Intake/Output: Intake & Output 12/25/20 12/26/20 12/27/20 12/28/20 23:59 23:59 23:59 23:59 Intake Total 3320 2730 5410 3440 Output Total 3000 2700 3050 900 Balance 122 54 2996 2540 Meds/Results Medications: Active Medications Generic Name Dose Route Start Last Admin Trade Name Freq PRN Reason Stop Dose Admin Hydrocodone Bitart/Acetaminophen 1 tab 12/20/20 05:20 12/28/20 06:53 Hydrocodone/Acetaminophen (*Crx) 5-325 Mg Tablet FEED TUBE 1 tab Q6H PRN Administration Pain 4-10 Carvedilol 12.5 mg 12/20/20 08:00 12/28/20 08:41 Carvedilol 12.5 Mg Tablet FEED TUBE 12.5 mg BIDWM FAROOQ Administration Dextrose 12.5 gm 12/20/20 05:22 Dextrose 50% 25 Gm/50 Ml Syringe IV PUSH PRN PRN Hypoglycemia Protocol Digoxin 250 mcg 12/21/20 09:00 12/28/20 08:41 Digoxin 250 Mcg Tablet PO 250 mcg QAM FAROOQ Administration Ergocalciferol 50,000 unit 12/23/20 09:00 12/23/20 20:59 Ergocalciferol 50,000 Unit Capsule FEED TUBE 50,000 unit WEEKLY FAROOQ Administration Glucagon 1 mg 12/20/20 05:22 Glucagon For Inj 1 Mg Vial IM PRN PRN Hypoglycemia Protocol Glucose 15 gm 12/20/20 05:22 Glucose Oral Gel 15 Gm Of Glucse In 37.5 Gm Tube PO PRN PRN Hypoglycemia Protocol Heparin Sodium (Porcine) 5,000 units 12/25/20 15:10 12/28/20 14:23 Heparin Sodium 5,000 Units/Ml Vial SUB-Q 12/29/20 14:00 5,000 units Q8HR FAROOQ Administration Sodium Chloride 1,000 mls @ 75 mls/hr 12/20/20 01:10 12/28/20 08:39 Normal Saline Iv IV CONT 75 mls/hr .[id number] FAROOQ Administration Dextrose 1,000 mls @ 100 mls/hr 12/20/20 05:22 Dextrose 5% 1,000 Ml IVPB PRN PRN Hypoglycemia Protocol Acetaminophen 1,000 mg in 100 mls @ 400 mls/hr 12/20/20 18:00 12/20/20 22:33 Ofirmev 1,000 Mg Ivpb IVPB Infused Q6HR PRN Infusion Fever > 100.4 Micafungin Sodium 100 mg/ 100 mls @ 100 mls/hr 12/22/20 13:00 12/28/20 14:23 Sodium Chloride IVPB 12/28/20 23:59 100 mls/hr Q24H FAROOQ Administration Piperacillin/Tazobactam/Dextrose 3.375 gm in 50 mls @ 100 mls/hr 12/25/20 18:00 12/28/20 12:20 Zosyn 3.375 Gm/D5w 50ml Pm IVPB Infused Q6HR FAROOQ Infusion Vancomycin HCl 2,000 mg/ 2,000 mg in 500 mls @ 250 mls/hr 12/26/20 22:00 12/28/20 12:50 Sodium Chloride IVP
[2020-12-28 16:47] LABS: Glucose Point of Care 202 mg/dl (65-105)
[2020-12-28] MEDS: INSULIN ASPART (*BKC) 100 UNITS/ML SUB-Q (17:17)
[2020-12-28 17:19] VITALS: PULSE 82
[2020-12-28] MEDS: carvediloL 12.5 MG TABLET BY MOUTH (17:19)
[2020-12-28 19:49] VITALS: BP 132/74; PULSE 58; RESP 18; TEMP 36.1; O2SAT 96
[2020-12-28] MEDS: INSULIN GLARGINE (*BKC) 100 UNITS/ML 25 UNITS SUB-Q (20:10)
[2020-12-28 20:49] LABS: Glucose Point of Care 215 mg/dl (65-105)
[2020-12-29] MEDS: SODIUM CHLORIDE 0.9% IV 1,000 ML 75 ML IV CONT (04:05)
[2020-12-29] MEDS: HEPARIN SODIUM 5,000 UNITS/ML VIAL 5000 UNITS SUB-Q ×2 (05:22→14:35)
[2020-12-29] MEDS: TOLNAFTATE 1% POWDER 45 GM BTL 1 APPLIC TOPICAL ×3 (05:22→21:35)
[2020-12-29 06:34] VITALS: BP 118/64; PULSE 70; RESP 18; TEMP 36.3; O2SAT 97
[2020-12-29 07:29] LABS: Hemoglobin 7.3 g/dL (14.0-18.0); Mean Corpuscular HGB Conc 29.2 g/dl (32-36); Mean Corpuscular Hemoglobin 26.4 pg (26-34); Mean Corpuscular Volume 90.3 fl (80-100); Mean Platelet Volume 8.9 fl (7.4-10.4); Platelet Count Result 246 k/mm3 (150-375); Red Blood Count 2.77 M/mm3 (4.6-6.20); Red Cell Distribution Width 21.7 % (11.5-14.5); White Blood Count 6.9 K/mm3 (4.5-10.0)
[2020-12-29 07:53] LABS: Anion Gap 5 mmol/L (8-16); Blood Urea Nitrogen 8 mg/dL (9-20); Calcium 7.6 mg/dL (8.4-10.2); Carbon Dioxide 22 mmol/L (22-30); Chloride 110 mmol/L (98-107); Estimated CRCL calculation 144 ml/min; Estimated Glomerular Filt Rate > 60; Glucose 184 mg/dL (65-110); Potassium 3.3 mmol/L (3.4-5.0); Sodium 137 mmol/L (137-145)
[2020-12-29 07:58] LABS: Glucose Point of Care 168 mg/dl (65-105)
[2020-12-29 09:57] VITALS: PULSE 88
[2020-12-29] MEDS: POTASSIUM CHLORIDE 20 MEQ TABLET 40 MEQ PO (09:57)
[2020-12-29] MEDS: PANTOPRAZOLE 40 MG TABLET PO ×2 (09:57→21:34)
[2020-12-29] MEDS: carvediloL 12.5 MG TABLET BY MOUTH ×2 (09:57→16:29)
[2020-12-29] MEDS: VANCOMYCIN ORAL 125 MG/2.5 ML SYRUP PO ×2 (09:57→21:33)
[2020-12-29] MEDS: DIGOXIN 250 MCG TABLET PO (09:57)
[2020-12-29] MEDS: POVIDONE-IODINE 10% OINT 30 GM TUBE 1 APPLIC TOPICAL (09:58)
[2020-12-29] MEDS: SOD HYPOCHLORITE 1/4 STRENGTH 473 ML 1 APPLIC TOPICAL ×2 (09:59→21:34)
[2020-12-29 10:48] LABS: Hematocrit 26.2 % (42.0-52.0); Hemoglobin 7.7 g/dL (14.0-18.0); Mean Corpuscular HGB Conc 29.4 g/dl (32-36); Mean Corpuscular Hemoglobin 26.6 pg (26-34); Mean Corpuscular Volume 90.7 fl (80-100); Mean Platelet Volume 9.1 fl (7.4-10.4); Platelet Count Result 235 k/mm3 (150-375); Red Blood Count 2.89 M/mm3 (4.6-6.20); Red Cell Distribution Width 21.7 % (11.5-14.5); White Blood Count 7.2 K/mm3 (4.5-10.0)
[2020-12-29] MEDS: INSULIN ASPART (*BKC) 100 UNITS/ML SUB-Q ×2 (12:22→16:28)
[2020-12-29 12:23] LABS: Glucose Point of Care 226 mg/dl (65-105)
--- NOTE | 2020-12-29 13:09 | PM.PNGS ---
Progress Note: A&P Assessment and Plan (1) Sacral decubitus ulcer: Code(s): L89.159 - Pressure ulcer of sacral region, unspecified stage Status: Acute Assessment and Plan: Will proceed with open diverting colostomy tomorrow. NPO after midnight. Will do clear liquids today, but will forgo bowel prep due to difficulty with controlling bowels currently. (2) Osteomyelitis: Code(s): M86.9 - Osteomyelitis, unspecified Status: Acute (3) Functional quadriplegia: Code(s): R53.2 - Functional quadriplegia Status: Acute Subjective Subjective Date/Time Seen: 12/29/20 13:09 Interval history: Patient on clear liquids today. No new complaints. Discussed plans for surgery tomorrow. Objective Data Vital Signs Vital Signs: Vital Signs - 24 hr 12/28/20 14:27 12/28/20 17:19 12/28/20 19:49 Temperature 36.6 C 36.1 C L Pulse Rate 98 82 58 L Respiratory Rate 18 18 Blood Pressure 142/53 H 132/74 Pulse Oximetry 99 96 12/29/20 06:34 12/29/20 09:57 Temperature 36.3 C L Pulse Rate 70 88 Respiratory Rate 18 Blood Pressure 118/64 Pulse Oximetry 97 Intake/Output Intake/Output: Intake & Output 12/26/20 12/27/20 12/28/20 12/29/20 23:59 23:59 23:59 23:59 Intake Total 2730 5410 4400 2770 Output Total 2700 3050 3200 850 Balance 30 2360 1200 1920 Meds/Results Medications: Active Medications Generic Name Dose Route Start Last Admin Trade Name Freq PRN Reason Stop Dose Admin Hydrocodone Bitart/Acetaminophen 1 tab 12/20/20 05:20 12/28/20 20:09 Hydrocodone/Acetaminophen (*Crx) 5-325 Mg Tablet FEED TUBE 1 tab Q6H PRN Administration Pain 4-10 Carvedilol 12.5 mg 12/28/20 17:00 12/29/20 09:57 Carvedilol 12.5 Mg Tablet BY MOUTH 12.5 mg BIDWM FAROOQ Administration Dextrose 12.5 gm 12/20/20 05:22 Dextrose 50% 25 Gm/50 Ml Syringe IV PUSH PRN PRN Hypoglycemia Protocol Digoxin 250 mcg 12/21/20 09:00 12/29/20 09:57 Digoxin 250 Mcg Tablet PO 250 mcg QAM FAROOQ Administration Ergocalciferol 50,000 unit 12/23/20 09:00 12/23/20 20:59 Ergocalciferol 50,000 Unit Capsule FEED TUBE 50,000 unit WEEKLY FAROOQ Administration Glucagon 1 mg 12/20/20 05:22 Glucagon For Inj 1 Mg Vial IM PRN PRN Hypoglycemia Protocol Glucose 15 gm 12/20/20 05:22 Glucose Oral Gel 15 Gm Of Glucse In 37.5 Gm Tube PO PRN PRN Hypoglycemia Protocol Heparin Sodium (Porcine) 5,000 units 12/25/20 15:10 12/29/20 05:22 Heparin Sodium 5,000 Units/Ml Vial SUB-Q 12/29/20 14:00 5,000 units Q8HR FAROOQ Administration Sodium Chloride 1,000 mls @ 75 mls/hr 12/20/20 01:10 12/29/20 12:18 Normal Saline Iv IV CONT Not Given .[id number] FAROOQ Dextrose 1,000 mls @ 100 mls/hr 12/20/20 05:22 Dextrose 5% 1,000 Ml IVPB PRN PRN Hypoglycemia Protocol Acetaminophen 1,000 mg in 100 mls @ 400 mls/hr 12/20/20 18:00 12/20/20 22:33 Ofirmev 1,000 Mg Ivpb IVPB Infused Q6HR PRN Infusion Fever > 100.4 Piperacillin/Tazobactam/Dextrose 3.375 gm in 50 mls @ 100 mls/hr 12/25/20 18:00 12/29/20 12:17 Zosyn 3.375 Gm/D5w 50ml Pm IVPB 100 mls/hr Q6HR FAROOQ Administration Vancomycin HCl 2,000 mg/ 2,000 mg in 500 mls @ 250 mls/hr 12/26/20 22:00 12/28/20 12:50 Sodium Chloride IVPB Infused Q36H FAROOQ Infusion Lactated Ringer's 1,000 mls @ 80 mls/hr 12/30/20 00:00 Lr - Lactated Ringers Iv IV CONT .[id number] FAROOQ Cefazolin Sodium 100 mls @ 200 mls/hr 12/30/20 10:00 Ancef 3 Gm/D5w 100 Ml IVPB 12/30/20 10:29 ONCE ONE Metronidazole 500 mg in 100 mls @ 100 mls/hr 12/30/20 10:00 Flagyl 500 Mg/Iso Soln 100 Ml IVPB 12/30/20 10:59 ONCE ONE Insulin Aspart 30 units 12/20/20 08:00 12/20/20 16:35 Insulin Aspart (*Bkc) 100 Units/Ml SUB-Q 01/19/21 08:01 Not Given TIDWM FAROOQ Insulin Aspart 3 - 6 units 12/20/20 18:00 12/29/20 12:22 Insulin Aspart (*Bkc) 100 Un
--- NOTE | 2020-12-29 13:54 | PM.IMPN ---
Progress Note: A&P Assessment and Plan (1) Fungemia: Code(s): B49 - Unspecified mycosis Status: Acute Assessment and Plan: Simran glabrata growing in blood. By far, most likely etiology would be inoculation into the blood stream from open wound Continue IV micafungin, daily. Follow results of echocardiogram. Repeat daily blood cultures. Currently no signs of sepsis: No fevers or chills, white count is 6.3, and blood pressure is stable. Continue to monitor closely. Id on consult, appreciate recommendations. 12/29/20 13:54 12/23 patient is a 60-year-old male morbidly obese with right [id number] amputation and left AKA with unstageable sacral decubitus ulcer seen by ID does not suspect an infection, patient was seen by surgery service and was taken today with for wound debridement and currently patient is in recovery room, has no complaints, patient has fungemia Simran glabrata growing in blood, seen by ID being treated IV micafungin, daily. will continue to monitor and appreciate ID and surgery service. 12/24 today patient seen medical floor lying in his bed uncomfortable states the bed is uncomfortable unable to maneuver, discussed with charge nurse and they will recheck the bed, patient is postop day 1,decubitus ulcer Status post debridement patient remains clinically stable, patient with fungemia being treated with IV micafungin, daily patient seen by ID and further recommendation to follow, patient seen by PT OT will continue, will monitor and further recommendation to follow. 12/25 patient remains clinically stable seen by surgery service and recommended diverting colostomy to prevent wound contamination on this will keep wound clean patient is a grade for the procedure, will place the patient hearin 5000u TID and will stop on Tuesday evening before surgery on Tuesday, communicated with nurse Enrique. Patent seen by ID and there is concern for OM and bacteremia with C glabrata BSI, ID recommending Vanc IV and Micafungin thruogh 12/28, Zosyn #08/20 until 01/18 and continue vanc BID also through 01/18 to prevent of repapesed C diff infection. 12/26 patient remains clinically stable seen by surgery service and recommended diverting colostomy to prevent wound contamination this will keep wound clean, and will not get soiled, surgery scheduled for Tuesday, will place the patient hearin 5000u TID and will stop on Tuesday evening before surgery on Tuesday, on 12/25 communicated with nurse Enrique. Patent seen by ID and there is concern for OM and bacteremia with C glabrata BSI, ID recommending Vanc IV and Micafungin thruogh 12/28, Zosyn #09/19 until 01/18 and continue vanc BID also through 01/18 to prevent of relapsed of C diff infection. 12/29 patient remains clinically stable seen by surgery service and recommended diverting colostomy to prevent wound contamination this will keep wound clean, and will not get soiled, patient was seen by surgery service today, surgery scheduled for tomorrow, patient clear liquids and does not need bowel prep, NPO after midnight, will place the patient heparin 5000u TID and will stop on Tuesday evening before surgery on Tuesday, on 12/25 communicated with nurse Enrique. Patent seen by ID and there is concern for OM and bacteremia with C glabrata BSI, ID recommending Vanc IV and Micafungin thruogh 12/28 and stopped, , Zosyn #11/19 until 01/18 and continue vanc BID also through 01/18 to prevent of relapsed of C diff infection. (2) Osteomyelitis: Code(s): M86.9 - Osteomyelitis, unspecified Status: Acute Assessment and Plan: Concern for osteomyelitis based on the fact that physical exam shows sacral ulcer is palpable to bone; however as ID noted, ulcer not clearly infected, and will avoid antibacterials unless required, as patient has multiple C diff infections in the last few years. Pulled PICC line Consulted surgery to assist with debridement. (3) Chronic atrial fibrillation with RVR: C
[2020-12-29 16:00] VITALS: BP 126/50; PULSE 52; RESP 18; TEMP 36.6; O2SAT 100
[2020-12-29 16:28] LABS: Glucose Point of Care 211 mg/dl (65-105)
[2020-12-29 16:29] VITALS: PULSE 84
[2020-12-29] MEDS: HYDROcodone/acetaminophen (*CRX) 5-325 MG TABLET 1 TAB FEED TUBE (17:59)
[2020-12-29] MEDS: LACTATED RINGERS 1,000 ML 80 ML IV CONT (18:05)
[2020-12-29 19:37] VITALS: BP 113/44; PULSE 76; RESP 18; TEMP 36.2; O2SAT 98
[2020-12-29] MEDS: INSULIN GLARGINE (*BKC) 100 UNITS/ML 25 UNITS SUB-Q (21:34)
[2020-12-29 21:43] LABS: Vancomycin Trough 11.4 ug/mL (10.0-20.0)
[2020-12-30] VITALS (20 sets, daily range): BP systolic 119–158; BP diastolic 40–82; PULSE 53–78; RESP 16–24; TEMP 36.1–37; O2SAT 95–100
[2020-12-30 02:50] LABS: Glucose Point of Care 240 mg/dl (65-105)
[2020-12-30] MEDS: TOLNAFTATE 1% POWDER 45 GM BTL 1 APPLIC TOPICAL ×3 (05:43→21:03)
[2020-12-30 06:03] LABS: Hemoglobin 7.4 g/dL (14.0-18.0); Mean Corpuscular HGB Conc 28.5 g/dl (32-36); Mean Corpuscular Hemoglobin 26.3 pg (26-34); Mean Corpuscular Volume 92.5 fl (80-100); Mean Platelet Volume 8.8 fl (7.4-10.4); Platelet Count Result 226 k/mm3 (150-375); Red Blood Count 2.81 M/mm3 (4.6-6.20); White Blood Count 5.9 K/mm3 (4.5-10.0)
[2020-12-30 06:32] LABS: Anion Gap 4 mmol/L (8-16); Blood Urea Nitrogen 7 mg/dL (9-20); Calcium 7.7 mg/dL (8.4-10.2); Carbon Dioxide 20 mmol/L (22-30); Chloride 111 mmol/L (98-107); Estimated CRCL calculation 166 ml/min; Estimated Glomerular Filt Rate > 60; Glucose 179 mg/dL (65-110); Potassium 3.5 mmol/L (3.4-5.0); Sodium 135 mmol/L (137-145)
[2020-12-30] MEDS: VANCOMYCIN ORAL 125 MG/2.5 ML SYRUP PO ×2 (08:26→20:49)
[2020-12-30] MEDS: DIGOXIN 250 MCG TABLET PO (08:32)
[2020-12-30] MEDS: carvediloL 12.5 MG TABLET BY MOUTH ×2 (08:32→17:25)
[2020-12-30] MEDS: POVIDONE-IODINE 10% OINT 30 GM TUBE 1 APPLIC TOPICAL (08:34)
[2020-12-30] MEDS: SOD HYPOCHLORITE 1/4 STRENGTH 473 ML 1 APPLIC TOPICAL ×2 (08:34→20:49)
[2020-12-30 09:00] LABS: Glucose Point of Care 163 mg/dl (65-105)
[2020-12-30] MEDS: LACTATED RINGERS 1,000 ML 30 ML IV CONT (11:00)
--- NOTE | 2020-12-30 11:07 | WPDANESEPPF ---
Anes - Initial Pre Proc Eval Procedure: Operation Date: 12/23/20 13:30 Proposed Procedures p Sacral Decubitus Ulcer Debridement - Milton Houston DO s Debridement Right Below Knee Amputation Stump - Milton Houston DO Operation Date: 12/30/20 12:00 Proposed Procedures p Open Diverting Colostomy - Milton Houston DO Date/Time: 12/30/20 11:07 Surgeon: Marielle Moore DO Pre Op Diagnosis: bacteremia, UTI, sepsis Patient Data Age: 60 Gender: M Height: 1.73 m Weight: 157.5 kg Last Vital Signs Temp 36.5 C 12/30/20 10:56 Pulse 55 L 12/30/20 10:56 Resp 20 12/30/20 10:56 BP 133/45 L 12/30/20 10:56 Pulse Ox 98 12/30/20 10:56 Allergies Allergy/AdvReac Type Severity Reaction Status Date / Time meperidine AdvReac Mild Nausea Verified 12/23/20 13:15 Home Medications Medication Instructions Recorded Confirmed Type apixaban 5 mg tablet 5 mg FEEDING TUBE BID 05/14/19 12/20/20 History foam bandage [Mepilex] #0 ea 11/20/20 12/20/20 Rx foam bandage [Mepilex] #0 ea 11/20/20 12/20/20 Rx pantoprazole 40 mg PO Q12HR #0 tablet 11/20/20 12/20/20 Rx acetaminophen [Mapap 650 mg FEEDING TUBE Q6H PRN 12/20/20 12/20/20 History (acetaminophen)] carvedilol [Coreg] 12.5 mg FEEDING TUBE BID 12/20/20 12/20/20 History cholecalciferol (vitamin D3) 1,250 mcg FEEDING TUBE WEEKLY 12/20/20 12/20/20 History empagliflozin [Jardiance] 25 mg FEEDING TUBE DAILY 12/20/20 12/20/20 History honey [MediHoney (honey)] 1 applic TOPICAL DAILY 12/20/20 12/20/20 History hydrocodone-acetaminophen 1 tablet FEEDING TUBE Q6H PRN 12/20/20 12/20/20 History insulin glargine [Lantus U-100 50 unit SUBCUT BID 12/20/20 12/20/20 History Insulin] insulin lispro 1 sliding scale dose SUBCUT QID 12/20/20 12/20/20 History insulin lispro 30 unit SUBCUT TIDWM 12/20/20 12/20/20 History levofloxacin 750 mg FEEDING TUBE DAILY 12/20/20 12/20/20 History menthol-zinc oxide [Calmoseptine] 1 applic TOPICAL TID 12/20/20 12/20/20 History metronidazole [Flagyl] 500 mg FEEDING TUBE Q8H 12/20/20 12/20/20 History miconazole nitrate 1 applic TOPICAL TID 12/20/20 12/20/20 History polyethylene glycol 3350 [Miralax] 17 g PO DAILY PRN 12/20/20 12/20/20 History povidone-iodine [Betadine] 1 applic TOPICAL DAILY 12/20/20 12/20/20 History propafenone 300 mg FEEDING TUBE Q8H 12/20/20 12/20/20 History vancomycin 125 mg PO BID 12/20/20 12/20/20 History vancomycin in 0.9 % sodium chl 2 g IV BID 12/20/20 12/20/20 History Laboratory Tests 12/29/20 12/29/20 12/29/20 12:21 16:25 21:15 WBC RBC Hgb Hct MCV MCH MCHC RDW Plt Count MPV Sodium Potassium Chloride Carbon Dioxide Anion Gap BUN Creatinine Estim Creat Clear Calc Estimated GFR Glucose POC Capillary Glucose 226 mg/dl H mg/dl 211 mg/dl H mg/dl (65-105) (65-105) Calcium Vancomycin Trough 11.4 ug/mL ug/mL (10.0-20.0) Blood Type Antibody Screen 12/29/20 12/30/20 12/30/20 21:28 05:19 05:19 WBC 5.9 K/mm3 K/mm3 (4.5-10.0) RBC 2.81 M/mm3 L M/mm3 (4.6-6.20) Hgb 7.4 g/dL L g/dL (14.0-18.0) Hct 26.0 % L % (42.0-52.0) MCV 92.5 fl fl (80-100) MCH 26.3 pg pg (26-34) MCHC 28.5 g/dl L g/dl (32-36) RDW 22.0 % H % (11.5-14.5) Plt Count 226 k/mm3 k/mm3 (150-375) MPV 8.8 fl fl (7.4-10.4) Sodium Potassium Chloride Carbon Dioxide Anion Gap BUN Creatinine Estim Creat Clear Calc Estimated GFR Glucose POC Capillary Glucose 240 mg/dl H mg/dl (65-105) Calcium Vanc
--- NOTE | 2020-12-30 12:16 | WPDHPUPDATE1 ---
History and Physical Update Update Date/Time: 12/30/20 12:16 History and Physical has been reviewed, including an updated exam of the patient. There are NO changes in the patient's condition. Risks, benefits, and alternatives have been discussed and questions answered. Patient agrees to proceed with procedure.
[2020-12-30] MEDS: ceFAZolin 3 GM/D5W 100 ML 100 ML IVPB (12:30)
[2020-12-30] MEDS: metroNIDAZOLE 500 MG/ISO 100ML 500 MG/100 ML BAG 100 MG IVPB (12:46)
[2020-12-30 14:47] LABS: Glucose Point of Care 187 mg/dl (65-105)
--- NOTE | 2020-12-30 16:10 | W.PM.PROC2 ---
Procedure Note - Detailed Date of Procedure 12/30/20 Pre-op Diagnosis Stage IV sacral decubitus ulcer Post-op Diagnosis same Procedure Performed Open diverting end colostomy Surgeon Milton Houston, DO Anesthesia general Indications This is a 60-year-old man who presents with a large sacral decubitus ulcer that was surgically debrided and appeared to extend all the way down to the sacrum. This is also very close to his rectum and he has been having a lot of loose stool in as a prior history of C diff colitis. Discussions were made with the patient that his wound was going to be very difficult to heal and he is high risk for recurrent infections if stool is getting into the wound. Decision was made to proceed with open diverting colostomy. Findings Open diverting colostomy was performed. The distal sigmoid was stapled and transected and the sigmoid was mobilized enough to bring up as an end colostomy. A proper location was identified and the left upper abdomen and this had previously been marked by the stoma nurse preoperatively. No other intra-abdominal abnormalities were noted other than some mildly dilated colon. Description of Procedure Procedure as well as risks, benefits, and alternatives were discussed with the patient. Written consent was obtained and placed in chart prior to procedure. Patient was brought back to surgical suite. He was placed supine on operating table. Time-out was done to confirm patient and procedure. He was intubated by the anesthesia department. His abdomen was prepped and draped in sterile fashion using chlorhexidine prep. A 15 cm vertical midline incision was made using a 10 blade scalpel. Electrocautery was used for hemostasis and for dissection down into the linea alba. The linea alba was then incised with electrocautery and the peritoneum was entered with electrocautery. An Dash wound protector was then inserted and the abdominal cavity was carefully inspected. The sigmoid colon was very redundant and was protruding up into the midline incision almost immediately upon inspection. A carefully traced the sigmoid colon down towards the rectum and then also inspected proximally. A few of the lateral peritoneal attachments of the more proximal sigmoid were taken down using electrocautery. This allowed enough mobilization of the proximal sigmoid colon and descending colon for ostomy placement. I then identified an area on the distal sigmoid colon that appeared proper placement for the colostomy. A window was created in the mesocolon and a contour stapler was then advanced across the distal sigmoid colon and clamped and stapled. The mesocolon a attachments were then taken down proximally using LigaSure bipolar cautery. Care was taken to stay along the mesentery and away from the marginal artery. This appeared to given of mobility to the sigmoid colon to bring it up for our ostomy. The abdomen was carefully inspected and no other intra-abdominal abnormalities were noted. Hemostasis appeared adequate. The Dash wound protector was then removed. I then identified the location along the left upper abdomen for ostomy creation. A 3 cm circular incision was made using a 15 blade scalpel and electrocautery was then used for hemostasis and for dissection down through the subcutaneous fat. The skin was excised along the cervical and dissection was then carried down to the anterior rectus sheath. The anterior rectus sheath was then incised vertically using electrocautery and then the rectus muscle was divided along its fibers until the posterior rectus sheath was identified. The posterior rectus sheath was then incised with electrocautery as well this was entered all the way through the peritoneum into the abdominal cavity. The proper orientation of the sigmoid colon was confirmed and then this was delivered through the ostomy incision. The sigmoid colon appeared to come up through the incision without any tension and witho
[2020-12-30 17:25] LABS: Glucose Point of Care 202 mg/dl (65-105)
[2020-12-30] MEDS: INSULIN ASPART (*BKC) 100 UNITS/ML SUB-Q (17:26)
[2020-12-30] MEDS: HYDROcodone/acetaminophen (*CRX) 10-325 MG TABLET 1 TAB PO (17:37)
--- NOTE | 2020-12-30 18:30 | PC.NURSE ---
Patient requested that wait to change dressing on coccyx and posterior neck due to surgery today. Dr. Quinones was present and was okay with waiting until tomorrow per patient request. Nose, left arm, and left stump dressing were completed today.
--- NOTE | 2020-12-30 18:34 | PM.IMPN ---
Progress Note: A&P Assessment and Plan (1) Fungemia: Code(s): B49 - Unspecified mycosis Status: Acute Assessment and Plan: Simran glabrata growing in blood. By far, most likely etiology would be inoculation into the blood stream from open wound Currently no signs of sepsis: No fevers or chills, blood pressure is stable. Continue to monitor closely. Id on consult, appreciate recommendations. 12/23 patient is a 60-year-old male morbidly obese with right puqke-qog-cvxf amputation and left AKA with unstageable sacral decubitus ulcer seen by ID does not suspect an infection, patient was seen by surgery service and was taken today with for wound debridement and currently patient is in recovery room, has no complaints, patient has fungemia Simran glabrata growing in blood, seen by ID being treated IV micafungin, daily. will continue to monitor and appreciate ID and surgery service. 12/24 today patient seen medical floor lying in his bed uncomfortable states the bed is uncomfortable unable to maneuver, discussed with charge nurse and they will recheck the bed, patient is postop day 1,decubitus ulcer Status post debridement patient remains clinically stable, patient with fungemia being treated with IV micafungin, daily patient seen by ID and further recommendation to follow, patient seen by PT OT will continue, will monitor and further recommendation to follow. 12/25 patient remains clinically stable seen by surgery service and recommended diverting colostomy to prevent wound contamination on this will keep wound clean patient is a grade for the procedure, will place the patient hearin 5000u TID and will stop on Tuesday evening before surgery on Tuesday, communicated with nurse Enrique. Patent seen by ID and there is concern for OM and bacteremia with C glabrata BSI, ID recommending Vanc IV and Micafungin thruogh 12/28, Zosyn #4/28 until 01/18 and continue vanc BID also through 01/18 to prevent of repapesed C diff infection. 12/26 patient remains clinically stable seen by surgery service and recommended diverting colostomy to prevent wound contamination this will keep wound clean, and will not get soiled, surgery scheduled for Tuesday, will place the patient hearin 5000u TID and will stop on Tuesday evening before surgery on Tuesday, on 12/25 communicated with nurse Enrique. Patent seen by ID and there is concern for OM and bacteremia with C glabrata BSI, ID recommending Vanc IV and Micafungin thruogh 12/28, Zosyn #/28 until 01/18 and continue vanc BID also through 01/18 to prevent of relapsed of C diff infection. 12/29 patient remains clinically stable seen by surgery service and recommended diverting colostomy to prevent wound contamination this will keep wound clean, and will not get soiled, patient was seen by surgery service today, surgery scheduled for tomorrow, patient clear liquids and does not need bowel prep, NPO after midnight, will place the patient heparin 5000u TID and will stop on Tuesday evening before surgery on Tuesday, on 12/25 communicated with nurse Enrique. Patent seen by ID and there is concern for OM and bacteremia with C glabrata BSI, ID recommending Vanc IV and Micafungin thruogh 12/28 and stopped, , Zosyn #/ until 01/18 and continue vanc BID also through 01/18 to prevent of relapsed of C diff infection. (2) Osteomyelitis: Code(s): M86.9 - Osteomyelitis, unspecified Status: Acute Assessment and Plan: Concern for osteomyelitis based on the fact that physical exam shows sacral ulcer is palpable to bone; however as ID noted, ulcer not clearly infected, and will avoid antibacterials unless required, as patient has multiple C diff infections in the last few years. Pulled PICC line Consulted surgery to assist with debridement - underwent colostomy bag today to prevent inoculation continue vancomycin and Zosyn (3) Chronic atrial fibrillation with RVR: Code(s): I48.20 - Chronic atrial fibrillation, u
[2020-12-30] MEDS: PANTOPRAZOLE 40 MG TABLET PO (20:48)
[2020-12-30] MEDS: INSULIN GLARGINE (*BKC) 100 UNITS/ML 25 UNITS SUB-Q (20:49)
[2020-12-30 21:00] LABS: Glucose Point of Care 167 mg/dl (65-105)
[2020-12-30] MEDS: HYDROmorphone HCL INJ (*CRX) 1 MG/ML SYR IV PUSH (21:03)
[2020-12-30] MEDS: HEPARIN SODIUM 5,000 UNITS/ML VIAL 5000 UNITS SUB-Q (21:04)
[2020-12-30 21:27] LABS: Iron 27 ug/dL (49-181)
[2020-12-30 21:37] LABS: Percent Iron Saturation 19 % (20-50)
[2020-12-30 22:15] LABS: Folic Acid 11.7 ng/mL (2.76->20)
[2020-12-31] VITALS (13 sets, daily range): BP systolic 108–143; BP diastolic 27–58; PULSE 49–64; RESP 16–20; TEMP 36.1–36.6; O2SAT 90–100
[2020-12-31] MEDS: HYDROcodone/acetaminophen (*CRX) 10-325 MG TABLET 1 TAB PO ×3 (03:07→17:02)
[2020-12-31] MEDS: HEPARIN SODIUM 5,000 UNITS/ML VIAL 5000 UNITS SUB-Q ×3 (06:07→21:15)
[2020-12-31] MEDS: TOLNAFTATE 1% POWDER 45 GM BTL 1 APPLIC TOPICAL ×3 (06:07→21:15)
[2020-12-31 06:15] LABS: Basophils Absolute Auto 0.1 K/mm3 (0.0-0.1); Basophils Percent Auto 0.5 % (0.2-1.2); Eosinophils Absolute Auto 0.1 K/mm3 (0-0.3); Eosinophils Percent Auto 1.3 % (0-4.4); Hematocrit 28.9 % (42.0-52.0); Hemoglobin 8.4 g/dL (14.0-18.0); Immature Granulocyte Absolute 0.07 K/mm3 (0.00-0.031); Immature Granulocyte Percent A 0.7 % (0-0.5); Lymphocytes Percent Auto 9.2 % (18.3-44.2); Mean Corpuscular HGB Conc 29.1 g/dl (32-36); Mean Corpuscular Hemoglobin 26.5 pg (26-34); Mean Corpuscular Volume 91.2 fl (80-100); Mean Platelet Volume 8.6 fl (7.4-10.4); Monocytes Absolute Auto 0.9 K/mm3 (0.1-0.6); Monocytes Percent Auto 9.1 % (2.6-8.5); Neutrophils Absolute Auto 7.7 K/mm3 (1.3-6.7); Neutrophils Percent Auto 79.2 % (45.5-73.1); Platelet Count Result 223 k/mm3 (150-375); Red Blood Count 3.17 M/mm3 (4.6-6.20); Red Cell Distribution Width 21.9 % (11.5-14.5); White Blood Count 9.7 K/mm3 (4.5-10.0)
[2020-12-31] MEDS: HYDROmorphone HCL INJ (*CRX) 1 MG/ML SYR 0.5 MG IV PUSH (06:23)
[2020-12-31 06:43] LABS: Alanine Aminotransferase 9 U/L (4-50); Albumin Level 2.3 g/dL (3.5-5.1); Alkaline Phosphatase 54 U/L (38-126); Anion Gap 5 mmol/L (8-16); Aspartate Amino Transferase 17 U/L (17-59); Bilirubin,Total 0.4 mg/dL (0.2-1.3); Blood Urea Nitrogen 8 mg/dL (9-20); Calcium 7.8 mg/dL (8.4-10.2); Carbon Dioxide 23 mmol/L (22-30); Chloride 109 mmol/L (98-107); Estimated CRCL calculation 127 ml/min; Estimated Glomerular Filt Rate > 60; Glucose 146 mg/dL (65-110); Magnesium 1.6 mg/dL (1.6-2.3); Phosphorus 4.2 mg/dL (2.5-4.5); Potassium 3.7 mmol/L (3.4-5.0); Sodium 137 mmol/L (137-145)
--- NOTE | 2020-12-31 07:27 | PCOTNOTE ---
Patient is dependent at baseline due to quadriplegia, patient is currently performing ADLs at [facility] [address] and skilled OT is no longer indicated at this time. Will discharge from skilled OT at this time.
[2020-12-31 08:33] LABS: Glucose Point of Care 124 mg/dl (65-105)
--- NOTE | 2020-12-31 08:46 | PM.PNGS ---
Progress Note: A&P Assessment and Plan (1) Sacral decubitus ulcer: Code(s): L89.159 - Pressure ulcer of sacral region, unspecified stage Status: Acute Assessment and Plan: Doing well with ostomy so far. Advance diet as tolerated. Continue ostomy teaching and routine care. Possibly stable discharge in next 1-2 days if pain controlled and tolerating diet, as long as other services clear him for discharge. (2) Osteomyelitis: Code(s): M86.9 - Osteomyelitis, unspecified Status: Acute (3) Functional quadriplegia: Code(s): R53.2 - Functional quadriplegia Status: Acute (4) Chronic atrial fibrillation with RVR: Code(s): I48.20 - Chronic atrial fibrillation, unspecified Status: Acute Subjective Subjective Date/Time Seen: 12/31/20 08:46 Interval history: Doing well on POD#1. Ostomy functioning. He says he has pain when being turned, but otherwise doing well. Exam GI: Inspection: incision (dressing dry) and other (ostomy pink and functioning) GI Palp: Yes Tenderness to palpation present (GI) (incisional) Objective Data Vital Signs Vital Signs: Vital Signs - 24 hr 12/30/20 10:56 12/30/20 14:13 12/30/20 14:21 Temperature 36.5 C 37.0 C Pulse Rate 55 L 78 66 Respiratory Rate 20 24 H 20 Blood Pressure 133/45 L 119/53 L 128/56 L Pulse Oximetry 98 100 100 12/30/20 14:35 12/30/20 14:45 12/30/20 14:55 Temperature Pulse Rate 71 78 74 Respiratory Rate 22 H 22 H 22 H Blood Pressure 121/53 L 126/52 L 136/59 L Pulse Oximetry 100 97 95 12/30/20 15:05 12/30/20 15:20 12/30/20 15:45 Temperature 36.4 C Pulse Rate 71 69 53 L Respiratory Rate 22 H 20 20 Blood Pressure 135/55 L 137/62 158/82 H Pulse Oximetry 99 99 96 12/30/20 16:00 12/30/20 16:30 12/30/20 17:24 Temperature 36.6 C 36.5 C 36.7 C Pulse Rate 72 70 71 Respiratory Rate 20 20 18 Blood Pressure 136/50 L 137/54 L 136/67 Pulse Oximetry 99 100 98 12/30/20 17:25 12/30/20 20:40 12/30/20 20:53 Temperature 36.6 C Pulse Rate 68 Respiratory Rate 16 Blood Pressure 130/40 L Pulse Oximetry 100 100 12/30/20 20:54 12/30/20 23:52 12/31/20 06:04 Temperature 36.5 C 36.6 C Pulse Rate 62 62 64 Respiratory Rate 18 17 Blood Pressure 124/44 L 118/48 L Pulse Oximetry 100 100 Intake/Output Intake/Output: Intake & Output 12/28/20 12/29/20 12/30/20 12/31/20 23:59 23:59 23:59 23:59 Intake Total 4400 5350 1905 400 Output Total 3200 1700 1565 600 Balance 1200 3650 340 -200 Meds/Results Medications: Active Medications Generic Name Dose Route Start Last Admin Trade Name Freq PRN Reason Stop Dose Admin Acetaminophen 650 mg 12/30/20 15:33 Acetaminophen 325 Mg Tablet PO Q6H PRN Mild Pain (1-3) or Fever Hydrocodone Bitart/Acetaminophen 1 tab 12/30/20 15:33 Hydrocodone/Acetaminophen (*Crx) 5-325 Mg Tablet PO Q4H PRN Pain Rated 4-6 Hydrocodone Bitart/Acetaminophen 1 tab 12/30/20 15:33 12/31/20 03:07 Hydrocodone/Acetaminophen (*Crx) 10-325 Mg Tablet PO 1 tab Q6H PRN Administration Pain Rated 7-10 Carvedilol 12.5 mg 12/28/20 17:00 12/30/20 17:25 Carvedilol 12.5 Mg Tablet BY MOUTH 12.5 mg BIDWM FAROOQ Administration Dextrose 12.5 gm 12/20/20 05:22 Dextrose 50% 25 Gm/50 Ml Syringe IV PUSH PRN PRN Hypoglycemia Protocol Digoxin 250 mcg 12/21/20 09:00 12/30/20 08:32 Digoxin 250 Mcg Tablet PO 250 mcg QAM FAROOQ Administration Ergocalciferol 50,000 unit 12/23/20 09:00 12/30/20 15:51 Ergocalciferol 50,000 Unit Capsule FEED TUBE Not Given WEEKLY FAROOQ Glucagon 1 mg 12/20/20 05:22 Glucagon For Inj 1 Mg Vial IM PRN PRN Hypoglycemia Protocol Glucose 15 gm 12/20/20 05:22 Glucose Oral Gel 15 Gm Of Glucse In 37.5 Gm Tube PO PRN PRN Hypoglycemia Protocol Heparin Sodium (Porcine) 5,000 units 12/30/20 22:00 12/31/20 06:07 Heparin Sodium 5,000 Units/Ml Vial
--- NOTE | 2020-12-31 08:56 | WPDANESPN ---
Anes - Prog Note Post-Op Date/Time: 12/31/20 08:56 Cardiovascular status: normal Respiratory status: normal Airway patency: baseline Mental status: baseline Post-Op hydration status: normal Vital Signs: Last Vital Signs Temp 98 F 12/31/20 06:04 Pulse 64 12/31/20 06:04 Resp 17 12/31/20 06:04 BP 118/48 L 12/31/20 06:04 Pulse Ox 100 12/31/20 06:04 Pain Score (VAS): 0 I/O: Intake & Output 12/30/20 12/31/20 12/31/20 23:59 07:59 15:59 Intake Total 50 400 Output Total 375 600 Balance -325 -200 Laboratory Tests 12/31/20 05:47 12/31/20 05:47 12/30/20 12/30/20 12/30/20 05:19 08:23 14:43 WBC RBC Hgb Hct MCV MCH MCHC RDW Plt Count MPV Immature Gran % (Auto) Neut % (Auto) Lymph % (Auto) [place] % (Auto) Eos % (Auto) Baso % (Auto) Lymph # (Auto) [place] # (Auto) Eos # (Auto) Baso # (Auto) Abs Immat Gran (auto) Absolute Neuts (auto) Absolute Nucleated RBC Nucleated RBC % Sodium Potassium Chloride Carbon Dioxide Anion Gap BUN Creatinine Estim Creat Clear Calc Estimated GFR Glucose POC Capillary Glucose 163 H 187 H Calcium Phosphorus Magnesium Iron TIBC % Saturation Ferritin Total Bilirubin AST ALT Alkaline Phosphatase Total Protein Albumin Vitamin B12 Folate Blood Type A Positive Antibody Screen Negative 12/30/20 12/30/20 12/30/20 17:13 20:17 20:17 WBC RBC Hgb Hct MCV MCH MCHC RDW Plt Count MPV Immature Gran % (Auto) Neut % (Auto) Lymph % (Auto) [place] % (Auto) Eos % (Auto) Baso % (Auto) Lymph # (Auto) [place] # (Auto) Eos # (Auto) Baso # (Auto) Abs Immat Gran (auto) Absolute Neuts (auto) Absolute Nucleated RBC Nucleated RBC % Sodium Potassium Chloride Carbon Dioxide Anion Gap BUN Creatinine Estim Creat Clear Calc Estimated GFR Glucose POC Capillary Glucose 202 H Calcium Phosphorus Magnesium Iron 27 L TIBC 139 L % Saturation 19 L Ferritin 211.00 Total Bilirubin AST ALT Alkaline Phosphatase Total Protein Albumin Vitamin B12 925.0 Folate 11.7 Blood Type Antibody Screen 12/30/20 12/30/20 12/31/20 20:17 20:51 05:47 WBC 9.7 RBC 3.17 L Hgb 8.4 L Hct 28.9 L MCV 91.2 MCH 26.5 MCHC 29.1 L RDW 21.9 H Plt Count 223 MPV 8.6 Immature Gran % (Auto) 0.7 H Neut % (Auto) 79.2 H Lymph % (Auto) 9.2 L [place] % (Auto) 9.1 H Eos % (Auto) 1.3 Baso % (Auto) 0.5 Lymph # (Auto) 0.90 [place] # (Auto) 0.9 H Eos # (Auto) 0.1 Baso # (Auto) 0.1 Abs Immat Gran (auto) 0.07 H Absolute Neuts (auto) 7.7 H Absolute Nucleated RBC 0.0 Nucleated RBC % 0.0 Sodium Potassium Chloride Carbon Dioxide Anion Gap BUN Creatinine Estim Creat Clear Calc Estimated GFR Glucose POC Capillary Glucose 167 H Calcium Phosphorus Magnesium Iron TIBC % Saturation Ferritin Cancelled Total Bilirubin AST ALT Alkaline Phosphatase Total Protein Albumin Vitamin B12 Folate Blood Type Antibody Screen 12/31/20 12/31/20 05:47 08:29 WBC RBC Hgb Hct MCV MCH MCHC RDW Plt Count MPV Immature Gran % (Auto) Neut % (Auto) Lymph % (Auto) [place] % (Auto) Eos % (Auto) Baso % (Auto) Lymph # (Auto) [place] # (Auto) Eos # (Auto) Baso # (Auto) Abs Immat Gran (auto) Absolute Neuts (auto) Absolute Nucleated RBC Nucleated RBC % Sodium 137 Potassium 3.7 Chloride 109 H Carbon Dioxide 23 Anion Gap 5 L BUN 8 L Creatinine 0.80 Estim Creat Clear Calc 127 Estimated GFR > 60 Glucose 146 H POC Capillary Glucose 124 H Calcium 7.8 L Phosphorus
[2020-12-31] MEDS: carvediloL 12.5 MG TABLET BY MOUTH (09:53)
[2020-12-31] MEDS: SOD HYPOCHLORITE 1/4 STRENGTH 473 ML 1 APPLIC TOPICAL (09:54)
[2020-12-31] MEDS: DIGOXIN 250 MCG TABLET PO (09:54)
[2020-12-31] MEDS: PANTOPRAZOLE 40 MG TABLET PO ×2 (09:54→20:09)
[2020-12-31] MEDS: VANCOMYCIN ORAL 125 MG/2.5 ML SYRUP PO ×2 (09:54→20:10)
[2020-12-31] MEDS: POVIDONE-IODINE 10% OINT 30 GM TUBE 1 APPLIC TOPICAL (09:54)
[2020-12-31] MEDS: HYDROmorphone HCL INJ (*CRX) 1 MG/ML SYR IV PUSH (11:29)
--- NOTE | 2020-12-31 11:35 | PCNFU ---
Nutrition Follow-Up Complete: Inadequate oral intake related to diet order as evidenced by clear liquid. Goal: Patient to meet estimated nutritional needs. Patient is progressing towards goal. No new goal at this time. Pt current nutrition is a clear liquid diet. Last recorded weight is 157.4 kg. Bowel Motility: + BM 12/30/2020 Labs Reviewed: Hgb 8.4, Hct 28.9, Alb 2.3, BUN 8, Glu 146 Meds Noted: Coreg, Drisdol, Glucagon, Glucose, Heparin Sodium, Novolog, Lantus, Protonix, Vancomycin Additional Notes: Patient has been consuming on average 81% of meals ordered on his clear liquid diet. He was NPO for two days and refused dinner on 12/30/2020. Patient has a pressure ulcer of sacral region, unstageable stage. If patient continues tolerating diet and pain is controlled plan to discharge within the next couple of days. Patient has a right BKA and left AKA. Follow up every 5 days.
[2020-12-31 12:07] LABS: Glucose Point of Care 129 mg/dl (65-105)
--- NOTE | 2020-12-31 14:49 | PM.IMPN ---
Progress Note: A&P Assessment and Plan (1) Fungemia: Code(s): B49 - Unspecified mycosis Status: Acute Assessment and Plan: Simran glabrata growing in blood. Repeat blood cultures have been negative Completed micafungin through December 28, per ID recommendation PICC was believed to be source of infection, has been pulled 12/23 patient is a 60-year-old male morbidly obese with right [id number] amputation and left AKA with unstageable sacral decubitus ulcer seen by ID does not suspect an infection, patient was seen by surgery service and was taken today with for wound debridement and currently patient is in recovery room, has no complaints, patient has fungemia Simran glabrata growing in blood, seen by ID being treated IV micafungin, daily. will continue to monitor and appreciate ID and surgery service. 12/24 today patient seen medical floor lying in his bed uncomfortable states the bed is uncomfortable unable to maneuver, discussed with charge nurse and they will recheck the bed, patient is postop day 1,decubitus ulcer Status post debridement patient remains clinically stable, patient with fungemia being treated with IV micafungin, daily patient seen by ID and further recommendation to follow, patient seen by PT OT will continue, will monitor and further recommendation to follow. 12/25 patient remains clinically stable seen by surgery service and recommended diverting colostomy to prevent wound contamination on this will keep wound clean patient is a grade for the procedure, will place the patient hearin 5000u TID and will stop on Tuesday evening before surgery on Tuesday, communicated with nurse Enrique. Patent seen by ID and there is concern for OM and bacteremia with C glabrata BSI, ID recommending Vanc IV and Micafungin thruogh 12/28, Zosyn #4 until 01/18 and continue vanc BID also through 01/18 to prevent of repapesed C diff infection. 12/26 patient remains clinically stable seen by surgery service and recommended diverting colostomy to prevent wound contamination this will keep wound clean, and will not get soiled, surgery scheduled for Tuesday, will place the patient hearin 5000u TID and will stop on Tuesday evening before surgery on Tuesday, on 12/25 communicated with nurse Enrique. Patent seen by ID and there is concern for OM and bacteremia with C glabrata BSI, ID recommending Vanc IV and Micafungin thruogh 12/28, Zosyn #09/19 until 01/18 and continue vanc BID also through 01/18 to prevent of relapsed of C diff infection. 12/29 patient remains clinically stable seen by surgery service and recommended diverting colostomy to prevent wound contamination this will keep wound clean, and will not get soiled, patient was seen by surgery service today, surgery scheduled for tomorrow, patient clear liquids and does not need bowel prep, NPO after midnight, will place the patient heparin 5000u TID and will stop on Tuesday evening before surgery on Tuesday, on 12/25 communicated with nurse Enrique. Patent seen by ID and there is concern for OM and bacteremia with C glabrata BSI, ID recommending Vanc IV and Micafungin thruogh 12/28 and stopped, , Zosyn #11/19 until 01/18 and continue vanc BID also through 01/18 to prevent of relapsed of C diff infection. (2) Osteomyelitis: Code(s): M86.9 - Osteomyelitis, unspecified Status: Acute Assessment and Plan: Concern for osteomyelitis based on the fact that physical exam shows sacral ulcer is palpable to bone currently on vancomycin and Zosyn, as ordered by Infectious Disease Service Consulted surgery to assist with debridement - underwent colostomy bag today to prevent inoculation, surgical site healing well Continue wound changes frequently-was hoping to do Q shift, however patient adamantly against this, and requesting to do daily; informed him that more frequent wound changes would help prevent infection, but he insists on daily at most, which we will do (3) Chronic atrial fibril
[2020-12-31 17:28] LABS: Glucose Point of Care 187 mg/dl (65-105)
[2020-12-31] MEDS: INSULIN GLARGINE (*BKC) 100 UNITS/ML 25 UNITS SUB-Q (20:09)
[2020-12-31 20:15] LABS: Glucose Point of Care 213 mg/dl (65-105)
[2021-01-01] VITALS (11 sets, daily range): BP systolic 120–127; BP diastolic 32–48; PULSE 44–64; RESP 16–17; TEMP 36.2–36.6; O2SAT 95–98
[2021-01-01] MEDS: HYDROmorphone HCL INJ (*CRX) 1 MG/ML SYR 0.5 MG IV PUSH (00:26)
[2021-01-01] MEDS: HEPARIN SODIUM 5,000 UNITS/ML VIAL 5000 UNITS SUB-Q ×3 (05:40→20:27)
[2021-01-01] MEDS: TOLNAFTATE 1% POWDER 45 GM BTL 1 APPLIC TOPICAL ×3 (05:40→20:28)
[2021-01-01] MEDS: HYDROmorphone HCL INJ (*CRX) 1 MG/ML SYR IV PUSH ×2 (06:05→20:39)
[2021-01-01 07:25] LABS: Estimated CRCL calculation 80 ml/min; Estimated Glomerular Filt Rate 57
[2021-01-01 08:45] LABS: Glucose Point of Care 140 mg/dl (65-105)
[2021-01-01] MEDS: SOD HYPOCHLORITE 1/4 STRENGTH 473 ML 1 APPLIC TOPICAL ×2 (08:57→20:28)
[2021-01-01] MEDS: POVIDONE-IODINE 10% OINT 30 GM TUBE 1 APPLIC TOPICAL (08:57)
[2021-01-01] MEDS: PANTOPRAZOLE 40 MG TABLET PO ×2 (09:43→20:24)
[2021-01-01] MEDS: VANCOMYCIN ORAL 125 MG/2.5 ML SYRUP PO ×2 (09:43→20:27)
[2021-01-01 12:16] LABS: Glucose Point of Care 133 mg/dl (65-105)
--- NOTE | 2021-01-01 13:15 | PM.IMPN ---
Progress Note: A&P Assessment and Plan (1) Fungemia: Code(s): B49 - Unspecified mycosis Status: Acute Assessment and Plan: Simran glabrata growing in blood. Repeat blood cultures have been negative Completed micafungin through December 28, per ID recommendation PICC was believed to be source of infection, has been pulled (2) Osteomyelitis: Code(s): M86.9 - Osteomyelitis, unspecified Status: Acute Assessment and Plan: Concern for osteomyelitis based on the fact that physical exam shows sacral ulcer is palpable to bone currently on vancomycin and Zosyn, as ordered by Infectious Disease Service Consulted surgery to assist with debridement - underwent colostomy bag today to prevent inoculation, surgical site healing well Continue wound changes frequently-was hoping to do Q shift, however patient adamantly against this, and requesting to do daily; informed him that more frequent wound changes would help prevent infection, but he insists on daily at most, which we will do (3) Chronic atrial fibrillation with RVR: Code(s): I48.20 - Chronic atrial fibrillation, unspecified Status: Acute Assessment and Plan: Hold anticoagulation in setting of acute hematuria and anemia Cardiology following and recommending Coreg and digoxin, will continue (4) Gross hematuria: Code(s): R31.0 - Gross hematuria Status: Acute Assessment and Plan: Has undergone irrigation of Abarca with Urology. Would ideally require CT urogram, however as noted by Urology, habitus would preclude undergoing this test at this facility. Will likely have to be done as an outpatient. Right now, Abarca bag looks completely yellow, no real evidence of blood, and certainly no clots again today (5) Acute UTI: Code(s): N39.0 - Urinary tract infection, site not specified Status: Acute Assessment and Plan: Possible cause of hematuria. No growth in urine, will complete empiric UTI therapy, current covered by Zosyn. (6) Diabetes: Code(s): E11.9 - Type 2 diabetes mellitus without complications Status: Acute Assessment and Plan: Morbidly obese, continue insulin therapy with 25 basal Lantus, and sliding scale. Additional Plan Continue IV antibiotics for osteomyelitis as ordered by ID Service. Continue p.o. vanc for C difficile. Discussed wound care with patient, agreeable to only daily wound dressing changes, which we will do. Hemoglobin is stable, as such we will continue DVT prophylaxis. hold all other anticoagulation for anemia. Colostomy bag surgical site healing well. Subjective Date/time seen: 01/01/21 13:15 Still wearing nasal cannula with 1 L, however this may be unnecessary, will try to wean today; conversing comfortably incoherently. No acute complaints, however does have some pain around surgical site and on back. Review of Systems Review of Systems: All systems reviewed & are unremarkable except as noted in HPI and below Exam Const: General: no acute distress Neck: Neck: no JVD Resp: Other: Diffuse crackles in all lung moran Cardio: Rate: abnormal rate Rhythm: abnormal rhythm GI: GI Palp: Yes Soft to palpation and No Tenderness to palpation present (GI) Other: G-tube in place colostomy bag in place Extrem: Other: bilateral lower extremity amputations Objective Data Vital Signs Vital Signs: Vital Signs - 24 hr 12/31/20 13:18 12/31/20 16:00 12/31/20 17:18 Temperature 97.6 F 97.6 F Pulse Rate 61 49 L 50 L Respiratory Rate 20 20 Blood Pressure 126/34 L 122/27 L Pulse Oximetry 100 100 12/31/20 20:00 12/31/20 20:10 01/01/21 00:00 Temperature 97 F L Pulse Rate 57 L 49 L Respiratory Rate 16 Blood Pressure 128/39 L Pulse Oximetry 98 98 01/01/21 04:00 01/01/21 06:51 01/01/21 08:00 Temperature 97.6 F Pulse Rate 44 L 64 53 L Respiratory Rate 16 Blood Pressure 126/32 L Pulse Oximetry 95 95
[2021-01-01] MEDS: HYDROcodone/acetaminophen (*CRX) 10-325 MG TABLET 1 TAB PO (14:07)
[2021-01-01 17:23] LABS: Glucose Point of Care 149 mg/dl (65-105)
[2021-01-01] MEDS: INSULIN GLARGINE (*BKC) 100 UNITS/ML 25 UNITS SUB-Q (20:27)
[2021-01-01 21:11] LABS: Glucose Point of Care 210 mg/dl (65-105)
[2021-01-02] VITALS (10 sets, daily range): BP systolic 131–137; BP diastolic 42–62; PULSE 48–61; RESP 16–18; TEMP 36.4–36.7; O2SAT 94–97
[2021-01-02 00:21] LABS: Vancomycin Trough 17.4 ug/mL (10.0-20.0)
[2021-01-02] MEDS: TOLNAFTATE 1% POWDER 45 GM BTL 1 APPLIC TOPICAL ×3 (05:16→22:50)
[2021-01-02] MEDS: HEPARIN SODIUM 5,000 UNITS/ML VIAL 5000 UNITS SUB-Q ×2 (05:16→23:08)
[2021-01-02] MEDS: ONDANSETRON INJ 4 MG/2 ML VIAL IV PUSH (05:56)
[2021-01-02 07:36] LABS: Glucose Point of Care 154 mg/dl (65-105)
[2021-01-02] MEDS: PANTOPRAZOLE 40 MG TABLET PO ×2 (08:12→20:08)
[2021-01-02] MEDS: SOD HYPOCHLORITE 1/4 STRENGTH 473 ML 1 APPLIC TOPICAL ×2 (08:12→20:16)
[2021-01-02] MEDS: POVIDONE-IODINE 10% OINT 30 GM TUBE 1 APPLIC TOPICAL (08:13)
[2021-01-02] MEDS: VANCOMYCIN ORAL 125 MG/2.5 ML SYRUP PO ×2 (08:14→20:08)
--- NOTE | 2021-01-02 10:17 | PM.PNGS ---
Progress Note: A&P Assessment and Plan (1) Sacral decubitus ulcer: Code(s): L89.159 - Pressure ulcer of sacral region, unspecified stage Status: Acute Assessment and Plan: No further debridement needed at this time. Will plan for Wound vac placement to make routine wound care less frequent for patient. OK to discharge to SNF when medically stable. (2) Osteomyelitis: Code(s): M86.9 - Osteomyelitis, unspecified Status: Acute (3) Functional quadriplegia: Code(s): R53.2 - Functional quadriplegia Status: Acute Subjective Subjective Date/Time Seen: 01/02/21 10:17 Interval history: Evaluated wound with VIKA Flynn today. Ostomy functioning. Wound care continuing. Exam GI: Inspection: other (Ostomy still slightly edematous but healthy and functioning) Skin: Other: Sacral decubitus ulcer with mostly healthy wound bed. Slight amount of necrotic tissue at base but overall looking much better. Objective Data Vital Signs Vital Signs: Vital Signs - 24 hr 01/01/21 12:00 01/01/21 15:58 01/01/21 16:00 Temperature 36.6 C Pulse Rate 47 L 48 L 54 L Respiratory Rate 17 Blood Pressure 120/48 L Pulse Oximetry 95 01/01/21 17:19 01/01/21 19:25 01/01/21 20:00 Temperature 36.2 C L Pulse Rate 52 L 56 L Respiratory Rate 16 16 Blood Pressure 127/45 L Pulse Oximetry 95 98 98 01/02/21 00:00 01/02/21 04:00 01/02/21 04:29 Temperature 36.7 C Pulse Rate 56 L 51 L 57 L Respiratory Rate 16 Blood Pressure 131/49 L Pulse Oximetry 97 01/02/21 08:11 Temperature Pulse Rate 48 L Respiratory Rate Blood Pressure Pulse Oximetry Intake/Output Intake/Output: Intake & Output 12/30/20 12/31/20 01/01/21 01/02/21 23:59 23:59 23:59 23:59 Intake Total 1905 1917 1290 640 Output Total 1565 255 600 250 Balance 340 967 250 390 Meds/Results Medications: Active Medications Generic Name Dose Route Start Last Admin Trade Name Freq PRN Reason Stop Dose Admin Acetaminophen 650 mg 12/30/20 15:33 Acetaminophen 325 Mg Tablet PO Q6H PRN Mild Pain (1-3) or Fever Hydrocodone Bitart/Acetaminophen 1 tab 12/30/20 15:33 Hydrocodone/Acetaminophen (*Crx) 5-325 Mg Tablet PO Q4H PRN Pain Rated 4-6 Hydrocodone Bitart/Acetaminophen 1 tab 12/30/20 15:33 01/01/21 14:07 Hydrocodone/Acetaminophen (*Crx) 10-325 Mg Tablet PO 1 tab Q6H PRN Administration Pain Rated 7-10 Carvedilol 12.5 mg 12/28/20 17:00 12/31/20 09:53 Carvedilol 12.5 Mg Tablet BY MOUTH 12.5 mg BIDWM FAROOQ Administration Dextrose 12.5 gm 12/20/20 05:22 Dextrose 50% 25 Gm/50 Ml Syringe IV PUSH PRN PRN Hypoglycemia Protocol Digoxin 250 mcg 12/21/20 09:00 01/02/21 08:11 Digoxin 250 Mcg Tablet PO Not Given QAM FAROOQ Ergocalciferol 50,000 unit 12/23/20 09:00 12/30/20 15:51 Ergocalciferol 50,000 Unit Capsule FEED TUBE Not Given WEEKLY FAROOQ Glucagon 1 mg 12/20/20 05:22 Glucagon For Inj 1 Mg Vial IM PRN PRN Hypoglycemia Protocol Glucose 15 gm 12/20/20 05:22 Glucose Oral Gel 15 Gm Of Glucse In 37.5 Gm Tube PO PRN PRN Hypoglycemia Protocol Heparin Sodium (Porcine) 5,000 units 12/30/20 22:00 01/02/21 05:16 Heparin Sodium 5,000 Units/Ml Vial SUB-Q 5,000 units Q8HR FAROOQ Administration Hydromorphone HCl 0.5 mg 12/30/20 15:33 01/01/21 00:26 Hydromorphone Hcl Inj (*Crx) 1 Mg/Ml Syr IV PUSH 0.5 mg Q2H PRN Administration Pain Rated 4-6 Hydromorphone HCl 1 mg 12/30/20 15:33 01/01/21 20:39 Hydromorphone Hcl Inj (*Crx) 1 Mg/Ml Syr IV PUSH 1 mg Q2H PRN Administration Pain Rated 7-10 Dextrose 1,000 mls @ 100 mls/hr 12/20/20 05:22 Dextrose 5% 1,000 Ml IVPB PRN PRN Hypoglycemia Protocol Piperacillin/Tazobactam/Dextrose 3.375 gm in 50 mls @ 100 mls/hr 12/25/20 18:00 01/02/21 06:07 Zosyn 3.375 Gm/D5w 50ml Pm IVPB Infu
[2021-01-02] MEDS: HYDROmorphone HCL INJ (*CRX) 1 MG/ML SYR IV PUSH (10:45)
--- NOTE | 2021-01-02 11:20 | PC.NURSE ---
1100 Evaluated this patient for picc line placement. right upper arm cephalic vein (superficial vessel) with unable to completely compress. Right brachial vein is 5 cm deep and tracks under artery. this vessel would be too deep for proper angle for picc line insertion. (7 cm Access needle would be too short for angle needed for picc line insertion.) Unable to visualize right basilic vein. Left upper arm has too much swelling/edema to see vessels for picc line insertion. Swelling extends from left hand to mid upper left arm. Finding discussed with Dr. Bledsoe.
[2021-01-02 11:33] LABS: Basophils Percent Auto 0.4 % (0.2-1.2); Eosinophils Absolute Auto 0.1 K/mm3 (0-0.3); Eosinophils Percent Auto 1.4 % (0-4.4); Hematocrit 25.5 % (42.0-52.0); Hemoglobin 7.5 g/dL (14.0-18.0); Immature Granulocyte Absolute 0.05 K/mm3 (0.00-0.031); Immature Granulocyte Percent A 0.5 % (0-0.5); Lymphocytes Absolute Auto 0.78 K/mm3 (0.9-3.2); Lymphocytes Percent Auto 8.2 % (18.3-44.2); Mean Corpuscular HGB Conc 29.4 g/dl (32-36); Mean Corpuscular Hemoglobin 26.7 pg (26-34); Mean Corpuscular Volume 90.7 fl (80-100); Mean Platelet Volume 8.3 fl (7.4-10.4); Monocytes Absolute Auto 0.6 K/mm3 (0.1-0.6); Neutrophils Percent Auto 83.5 % (45.5-73.1); Platelet Count Result 171 k/mm3 (150-375); Red Blood Count 2.81 M/mm3 (4.6-6.20); Red Cell Distribution Width 21.2 % (11.5-14.5); White Blood Count 9.5 K/mm3 (4.5-10.0)
[2021-01-02 11:43] LABS: Albumin Level 2.3 g/dL (3.5-5.1); Alkaline Phosphatase 57 U/L (38-126); Anion Gap 6 mmol/L (8-16); Aspartate Amino Transferase 12 U/L (17-59); Bilirubin,Total 0.4 mg/dL (0.2-1.3); Blood Urea Nitrogen 17 mg/dL (9-20); Calcium 7.6 mg/dL (8.4-10.2); Carbon Dioxide 21 mmol/L (22-30); Chloride 106 mmol/L (98-107); Estimated CRCL calculation 53 ml/min; Estimated Glomerular Filt Rate 34; Glucose 168 mg/dL (65-110); Magnesium 1.6 mg/dL (1.6-2.3); Phosphorus 5.3 mg/dL (2.5-4.5); Potassium 3.9 mmol/L (3.4-5.0); Sodium 133 mmol/L (137-145)
[2021-01-02 12:26] LABS: Glucose Point of Care 181 mg/dl (65-105)
[2021-01-02 12:41] LABS: Alanine Aminotransferase < 6 U/L (4-50)
--- NOTE | 2021-01-02 14:24 | PM.IMPN ---
Progress Note: A&P Assessment and Plan (1) Fungemia: Code(s): B49 - Unspecified mycosis Status: Acute Assessment and Plan: Simran glabrata growing in blood on 12/20. Repeat blood cultures 12/22 have been negative Completed micafungin through December 28, per ID recommendation PICC was believed to be source of infection which has been pulled. (2) RADHA (acute kidney injury): Code(s): N17.9 - Acute kidney failure, unspecified Status: Acute Assessment and Plan: Cr has climbed to 2.0 today. Could be related to medication (abx?) and/or bradycardia. has been NPO at times but overall eating okay. Will check urine studies. Check renal US. Discuss with ID about changing abx. Renally dose Zosyn. (3) Osteomyelitis: Code(s): M86.9 - Osteomyelitis, unspecified Status: Acute Assessment and Plan: Concern for osteomyelitis based on the fact that physical exam shows sacral ulcer is palpable to bone Currently on vancomycin and Zosyn as ordered by Infectious Disease Service Bone Cx 12/23 growing Pediococcus and Simran Consulted surgery to assist with debridement - underwent diverting colostomy to prevent inoculation, surgical site healing well and colostomy working well. Continue wound changes frequently as he tolerates ID note reviewed and states IV Vanco should be stopped on 12/28/20 but unclear why this was continued - called ID to clarify but no answer. Will stop Vanco due to the RADHA and the current documentation. (4) Chronic atrial fibrillation with RVR: Code(s): I48.20 - Chronic atrial fibrillation, unspecified Status: Acute Assessment and Plan: Patietn bradycardic so Digoxin not been giveN. Coreg on hold. Anticoagulation also on hold in the setting of acute hematuria and anemia. Urine remaiing clear. Cardiology following and appreciate their input. Hold Digoxin due to the renal failure. Resume Coreg at lower dose with parameters. (5) Gross hematuria: Code(s): R31.0 - Gross hematuria Status: Acute Assessment and Plan: Has undergone irrigation of Abarca with Urology. Would ideally require CT urogram, however as noted by Urology, habitus would preclude undergoing this test at this facility. Will likely have to be done as an outpatient. Right now, urine clear. Will discuss with urology about when to start back his Eliquis (6) Acute UTI: Code(s): N39.0 - Urinary tract infection, site not specified Status: Acute Assessment and Plan: Possible cause of hematuria. Urine culture negative. He will complete empiric UTI therapy, current covered by Zosyn. (7) Diabetes: Code(s): E11.9 - Type 2 diabetes mellitus without complications Status: Acute Assessment and Plan: A1c 8.6 in October. The patient's blood glucose was reviewed on 01/02 Glucose remains reasonably well controlled. Continue AccuCheks covering with sliding scale. Hypoglycemia protocol available as needed. Continue current medications with Lantus 25U daily. (8) Functional quadriplegia: Code(s): R53.2 - Functional quadriplegia Status: Acute Assessment and Plan: Patient is status post bilateral lower extremity amputation. 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 Patient is full care. Continue air mattress and good skin care. (9) C. 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 Patient is currently on vancomycin p.o. b.i.d. through 01/18/2021. (10) Sacral decubitus ulcer: Code(s): L89.159 - Pressure ulcer of sacral region, unspecified stage Status: Acute Assessment and Plan: As above. Continue dressing changes as patient allows. (11) DVT prophylaxis: Code(s): Z29.9 - Encounter
[2021-01-02 15:01] LABS: INR 1.2; Prothrombin Time 14.8 Seconds (11.1-14.7)
[2021-01-02 15:02] LABS: Partial Thromboplastin Time 35.7 SECONDS (22.3-36.8)
--- NOTE | 2021-01-02 16:05 | WPDUROPN2 ---
Progress Note: A&P Assessment and Plan (1) Urinary retention: Code(s): R33.9 - Retention of urine, unspecified Status: Acute (2) Sacral decubitus ulcer: Code(s): L89.159 - Pressure ulcer of sacral region, unspecified stage Status: Acute Assessment and Plan: As outlined earlier, for multiple reasons (immobility, sacral wounds, etc) decision has been made for long-term, indwelling catheter with monthly changes. First fried will be due 01/20 - 01/23. Urine clear - OK from our standpoint to resume anticoagulation. Subjective Subjective Date/Time Seen: 01/02/21 16:05 Tolerating catheter Review of Systems Cardiovascular: Cardiovascular: Denies chest pain, Denies lightheadedness, Denies palpitations and Denies dyspnea Respiratory: Respiratory: Denies dyspnea Gastrointestinal: Gastrointestinal: Denies diarrhea, Denies nausea and Denies vomiting Genitourinary: Genitourinary: Denies hematuria and Denies dysuria Endocrine: Endocrine: Denies palpitations Exam Const: General: no acute distress Resp: Effort & Inspection: normal respiratory effort GI: Inspection: non-distended GI Palp: No abdominal tenderness and No Guarding due to palpation present (GI) Auscultation: normal bowel sounds Urinary Catheter: Urinary Catheter: patent and draining and urine clear Objective Data Vital Signs Vital Signs: Vital Signs - 24 hr 01/01/21 17:19 01/01/21 19:25 01/01/21 20:00 Temperature 97.1 F L Pulse Rate 52 L 56 L Respiratory Rate 16 16 Blood Pressure 127/45 L Pulse Oximetry 95 98 98 01/02/21 00:00 01/02/21 04:00 01/02/21 04:29 Temperature 98.1 F Pulse Rate 56 L 51 L 57 L Respiratory Rate 16 Blood Pressure 131/49 L Pulse Oximetry 97 01/02/21 08:00 01/02/21 08:11 01/02/21 14:50 Temperature 97.6 F Pulse Rate 52 L 48 L 60 Respiratory Rate 18 Blood Pressure 137/42 L Pulse Oximetry 94 Intake/Output Intake/Output: Intake & Output 12/30/20 12/31/20 01/01/21 01/02/21 23:59 23:59 23:59 23:59 Intake Total 1905 1917 1290 690 Output Total 1565 950 600 600 Balance 340 967 690 90 Meds/Results Medications: Active Medications Generic Name Dose Route Start Last Admin Trade Name Freq PRN Reason Stop Dose Admin Acetaminophen 650 mg 12/30/20 15:33 Acetaminophen 325 Mg Tablet PO Q6H PRN Mild Pain (1-3) or Fever Hydrocodone Bitart/Acetaminophen 1 tab 12/30/20 15:33 Hydrocodone/Acetaminophen (*Crx) 5-325 Mg Tablet PO Q4H PRN Pain Rated 4-6 Hydrocodone Bitart/Acetaminophen 1 tab 12/30/20 15:33 01/01/21 14:07 Hydrocodone/Acetaminophen (*Crx) 10-325 Mg Tablet PO 1 tab Q6H PRN Administration Pain Rated 7-10 Carvedilol 3.125 mg 01/02/21 21:00 Carvedilol 3.125 Mg Tablet PO Q12HR FAROOQ Dextrose 12.5 gm 12/20/20 05:22 Dextrose 50% 25 Gm/50 Ml Syringe IV PUSH PRN PRN Hypoglycemia Protocol Digoxin 250 mcg 12/21/20 09:00 01/02/21 08:11 Digoxin 250 Mcg Tablet PO Not Given QAM [facility] Ergocalciferol 50,000 unit 12/23/20 09:00 12/30/20 15:51 Ergocalciferol 50,000 Unit Capsule FEED TUBE Not Given WEEKLY [facility] Glucagon 1 mg 12/20/20 05:22 Glucagon For Inj 1 Mg Vial IM PRN PRN Hypoglycemia Protocol Glucose 15 gm 12/20/20 05:22 Glucose Oral Gel 15 Gm Of Glucse In 37.5 Gm Tube PO PRN PRN Hypoglycemia Protocol Heparin Sodium (Porcine) 5,000 units 12/30/20 22:00 01/02/21 15:04 Heparin Sodium 5,000 Units/Ml Vial SUB-Q Not Given Q8HR [facility] Hydromorphone HCl 0.5 mg 12/30/20 15:33 01/01/21 00:26 Hydromorphone Hcl Inj (*Crx) 1 Mg/Ml Syr IV PUSH 0.5 mg Q2H PRN Administration Pain Rated 4-6 Hydromorphone HCl 1 mg 12/30/20 15:33 01/02/21 10:45 Hydromorphone Hcl Inj (*Crx) 1 Mg/Ml Syr IV PUSH 1 mg Q2H PRN Administration Pain Rated 7-10 Dextrose 1,000 mls @ 100 mls/hr 12/20/20 05:22 Dextrose
[2021-01-02 17:35] LABS: Glucose Point of Care 150 mg/dl (65-105)
[2021-01-02 18:20] LABS: Sodium Urine Random 69 meq/L
[2021-01-02 19:09] LABS: Eosinophil Urine Rare % (None Seen)
[2021-01-02] MEDS: INSULIN GLARGINE (*BKC) 100 UNITS/ML 25 UNITS SUB-Q (20:13)
[2021-01-02] MEDS: HYDROcodone/acetaminophen (*CRX) 10-325 MG TABLET 1 TAB PO (20:22)
[2021-01-02 21:10] LABS: Glucose Point of Care 192 mg/dl (65-105)
[2021-01-03] VITALS (10 sets, daily range): BP systolic 131–154; BP diastolic 48–54; PULSE 46–64; RESP 16–24; TEMP 35.7–36.6; O2SAT 97–100
[2021-01-03] MEDS: TOLNAFTATE 1% POWDER 45 GM BTL 1 APPLIC TOPICAL ×3 (05:00→21:58)
[2021-01-03] MEDS: HEPARIN SODIUM 5,000 UNITS/ML VIAL 5000 UNITS SUB-Q ×3 (05:00→21:57)
[2021-01-03 05:49] LABS: Basophils Percent Auto 0.4 % (0.2-1.2); Eosinophils Absolute Auto 0.2 K/mm3 (0-0.3); Eosinophils Percent Auto 2.4 % (0-4.4); Hematocrit 24.8 % (42.0-52.0); Hemoglobin 7.2 g/dL (14.0-18.0); Immature Granulocyte Absolute 0.04 K/mm3 (0.00-0.031); Immature Granulocyte Percent A 0.5 % (0-0.5); Lymphocytes Absolute Auto 0.91 K/mm3 (0.9-3.2); Lymphocytes Percent Auto 11.4 % (18.3-44.2); Mean Corpuscular Hemoglobin 26.6 pg (26-34); Mean Corpuscular Volume 91.5 fl (80-100); Mean Platelet Volume 8.8 fl (7.4-10.4); Monocytes Absolute Auto 0.6 K/mm3 (0.1-0.6); Monocytes Percent Auto 7.5 % (2.6-8.5); Neutrophils Absolute Auto 6.2 K/mm3 (1.3-6.7); Neutrophils Percent Auto 77.8 % (45.5-73.1); Platelet Count Result 180 k/mm3 (150-375); Red Blood Count 2.71 M/mm3 (4.6-6.20)
[2021-01-03 05:59] LABS: Albumin Level 2.2 g/dL (3.5-5.1); Anion Gap 10 mmol/L (8-16); Blood Urea Nitrogen 19 mg/dL (9-20); Calcium 7.5 mg/dL (8.4-10.2); Carbon Dioxide 20 mmol/L (22-30); Chloride 107 mmol/L (98-107); Estimated CRCL calculation 43 ml/min; Estimated Glomerular Filt Rate 27; Glucose 113 mg/dL (65-110); Magnesium 1.7 mg/dL (1.6-2.3); Phosphorus 5.4 mg/dL (2.5-4.5); Potassium 3.9 mmol/L (3.4-5.0); Sodium 137 mmol/L (137-145)
[2021-01-03] MEDS: PANTOPRAZOLE 40 MG TABLET PO ×2 (08:15→21:57)
[2021-01-03] MEDS: carvediloL 3.125 MG TABLET PO ×2 (08:15→21:56)
[2021-01-03] MEDS: POVIDONE-IODINE 10% OINT 30 GM TUBE 1 APPLIC TOPICAL (08:15)
[2021-01-03] MEDS: SOD HYPOCHLORITE 1/4 STRENGTH 473 ML 1 APPLIC TOPICAL ×2 (08:15→21:57)
[2021-01-03] MEDS: VANCOMYCIN ORAL 125 MG/2.5 ML SYRUP PO ×2 (08:16→21:57)
[2021-01-03 09:09] LABS: Glucose Point of Care 95 mg/dl (65-105)
--- NOTE | 2021-01-03 11:17 | PM.IMPN ---
Progress Note: A&P Assessment and Plan (1) Fungemia: Code(s): B49 - Unspecified mycosis Status: Acute Assessment and Plan: Simran glabrata growing in blood on 12/20. Repeat blood cultures 12/22 have been negative Completed micafungin through December 28, per ID recommendation Picc line removed, surgery perfers not to put in central line with recent infection (2) RADHA (acute kidney injury): Code(s): N17.9 - Acute kidney failure, unspecified Status: Acute Assessment and Plan: Cr has climbed to 2.5, will consult nephrology and start iv fluids. (3) Osteomyelitis: Code(s): M86.9 - Osteomyelitis, unspecified Status: Acute Assessment and Plan: From previous notes, Concern for osteomyelitis based on the fact that physical exam shows sacral ulcer is palpable to bone Currently on vancomycin and Zosyn as ordered by Infectious Disease Service Bone Cx 12/23 growing Pediococcus and Simran Consulted surgery to assist with debridement - underwent diverting colostomy to prevent inoculation, surgical site healing well and colostomy working well. Pt seen by wound team pt has wound vac insitu. Continue wound changes at bedside (4) Chronic atrial fibrillation with RVR: Code(s): I48.20 - Chronic atrial fibrillation, unspecified Status: Acute Assessment and Plan: Patietn bradycardic. Digoxin on hold. Coreg on hold. (5) Gross hematuria: Code(s): R31.0 - Gross hematuria Status: Acute Assessment and Plan: Has undergone irrigation of Abarca with Urology. Would ideally require CT urogram, urology following Pt seen by urology continue alf catheter as pt has bilateral LE amputations. (6) Acute UTI: Code(s): N39.0 - Urinary tract infection, site not specified Status: Acute Assessment and Plan: Possible cause of hematuria. Urine culture negative. pt is on iv zosyn. (7) Diabetes: Code(s): E11.9 - Type 2 diabetes mellitus without complications Status: Acute Assessment and Plan: A1c 8.6 in October. The patient's blood glucose was reviewed on 01/02 continue accuchecks and DM medications (8) Functional quadriplegia: Code(s): R53.2 - Functional quadriplegia Status: Acute Assessment and Plan: Patient is status post bilateral lower extremity amputation. 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 Patient needs full care. 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 Patient is currently on vancomycin p.o. b.i.d. through 01/18/2021. (10) Sacral decubitus ulcer: Code(s): L89.159 - Pressure ulcer of sacral region, unspecified stage Status: Acute Assessment and Plan: As above. Continue dressing changes as patient allows. (11) DVT prophylaxis: Code(s): Z29.9 - Encounter for prophylactic measures, unspecified Status: Acute Assessment and Plan: Heparin Subjective Date/time seen: 01/03/21 11:17 Interval history: 60yo male who is a functional quadriplegic with bilateral LE amputations, CKD, and chronic AF admitted for sacral decubitus with fungemia, possible osteomyelitis. Review of Systems Review of Systems: All systems reviewed & are unremarkable except as noted in HPI and below Exam Narrative: Vital Signs Temp Pulse Resp BP Pulse Ox 01/03/21 08:15 54 L 01/03/21 08:00 54 L 01/03/21 04:35 36.6 C 56 L 16 15
[2021-01-03 11:48] LABS: Glucose Point of Care 114 mg/dl (65-105)
[2021-01-03] MEDS: SODIUM CHLORIDE 0.9% IV 1,000 ML 100 ML IV CONT ×2 (12:04→22:38)
--- NOTE | 2021-01-03 14:40 | WPDUROPN2 ---
Progress Note: A&P Assessment and Plan (1) Urinary retention: Code(s): R33.9 - Retention of urine, unspecified Status: Acute Assessment and Plan: as per Dr Quezada plan- continue chronic shaw change q monthly (2) Acute UTI: Code(s): N39.0 - Urinary tract infection, site not specified Status: Acute (3) RADHA (acute kidney injury): Code(s): N17.9 - Acute kidney failure, unspecified Status: Acute Assessment and Plan: unclear etiology, normal TAURUS, no signs of urologic obstruction, consider nephrology evaluation Subjective Subjective Date/Time Seen: 01/03/21 14:40 no acute urologic complaints. normal TAURUS yesterday. Exam Const: General: cooperative, comfortable and no acute distress Chest: Chest palpation & inspection: normal inspection of the chest Resp: Effort & Inspection: normal respiratory effort GI: Inspection: normal to inspection and other (incision c/d/i, colostomy patent ) GI Palp: No Bladder palpation abnormal Rectal Exam: deferred Urinary Catheter: Urinary Catheter: patent and draining and urine clear Objective Data Vital Signs Vital Signs: Vital Signs - 24 hr 01/02/21 14:50 01/02/21 16:00 01/02/21 20:00 Temperature 36.4 C Pulse Rate 60 54 L 59 L Respiratory Rate 18 Blood Pressure 137/42 L Pulse Oximetry 94 01/02/21 20:12 01/02/21 20:58 01/03/21 00:00 Temperature 36.5 C Pulse Rate 49 L 61 54 L Respiratory Rate 18 Blood Pressure 136/62 Pulse Oximetry 96 01/03/21 04:00 01/03/21 04:35 01/03/21 08:00 Temperature 36.6 C Pulse Rate 46 L 56 L 54 L Respiratory Rate 16 Blood Pressure 154/54 H Pulse Oximetry 97 01/03/21 08:15 Temperature Pulse Rate 54 L Respiratory Rate Blood Pressure Pulse Oximetry Intake/Output Intake/Output: Intake & Output 12/31/20 01/01/21 01/02/21 01/03/21 23:59 23:59 23:59 23:59 Intake Total 1917 1290 1230 737 Output Total 950 600 600 300 Balance 967 690 630 437 Meds/Results Medications: Active Medications Generic Name Dose Route Start Last Admin Trade Name Freq PRN Reason Stop Dose Admin Acetaminophen 650 mg 12/30/20 15:33 Acetaminophen 325 Mg Tablet PO Q6H PRN Mild Pain (1-3) or Fever Hydrocodone Bitart/Acetaminophen 1 tab 12/30/20 15:33 Hydrocodone/Acetaminophen (*Crx) 5-325 Mg Tablet PO Q4H PRN Pain Rated 4-6 Hydrocodone Bitart/Acetaminophen 1 tab 12/30/20 15:33 01/02/21 20:22 Hydrocodone/Acetaminophen (*Crx) 10-325 Mg Tablet PO 1 tab Q6H PRN Administration Pain Rated 7-10 Carvedilol 3.125 mg 01/02/21 21:00 01/03/21 08:15 Carvedilol 3.125 Mg Tablet PO 3.125 mg Q12HR FAROOQ Administration Dextrose 12.5 gm 12/20/20 05:22 Dextrose 50% 25 Gm/50 Ml Syringe IV PUSH PRN PRN Hypoglycemia Protocol Digoxin 250 mcg 12/21/20 09:00 01/02/21 08:11 Digoxin 250 Mcg Tablet PO Not Given QAM [facility] Ergocalciferol 50,000 unit 12/23/20 09:00 12/30/20 15:51 Ergocalciferol 50,000 Unit Capsule FEED TUBE Not Given WEEKLY [facility] Glucagon 1 mg 12/20/20 05:22 Glucagon For Inj 1 Mg Vial IM PRN PRN Hypoglycemia Protocol Glucose 15 gm 12/20/20 05:22 Glucose Oral Gel 15 Gm Of Glucse In 37.5 Gm Tube PO PRN PRN Hypoglycemia Protocol Heparin Sodium (Porcine) 5,000 units 12/30/20 22:00 01/03/21 05:00 Heparin Sodium 5,000 Units/Ml Vial SUB-Q 5,000 units Q8HR FAROOQ Administration Hydromorphone HCl 0.5 mg 12/30/20 15:33 01/01/21 00:26 Hydromorphone Hcl Inj (*Crx) 1 Mg/Ml Syr IV PUSH 0.5 mg Q2H PRN Administration Pain Rated 4-6 Hydromorphone HCl 1 mg 12/30/20 15:33 01/02/21 10:45 Hydromorphone Hcl Inj (*Crx) 1 Mg/Ml Syr IV PUSH 1 mg Q2H PRN Administration Pain Rated 7-10 Dextrose 1,000 mls @ 100 mls/hr 12/20/20 05:22 Dextrose 5% 1,000 Ml IVPB PRN PRN Hypoglycemia Protocol Piperacillin/Tazobact
[2021-01-03 16:41] LABS: Glucose Point of Care 137 mg/dl (65-105)
[2021-01-03] MEDS: HYDROcodone/acetaminophen (*CRX) 10-325 MG TABLET 1 TAB PO (21:55)
[2021-01-03] MEDS: INSULIN GLARGINE (*BKC) 100 UNITS/ML 25 UNITS SUB-Q (22:20)
[2021-01-03 22:26] LABS: Glucose Point of Care 183 mg/dl (65-105)
[2021-01-04] VITALS (11 sets, daily range): BP systolic 115–167; BP diastolic 55–61; PULSE 48–63; RESP 18–24; TEMP 35.6–36.1; O2SAT 97–99
[2021-01-04] MEDS: TOLNAFTATE 1% POWDER 45 GM BTL 1 APPLIC TOPICAL ×3 (05:46→21:52)
[2021-01-04] MEDS: HEPARIN SODIUM 5,000 UNITS/ML VIAL 5000 UNITS SUB-Q ×3 (05:46→21:51)
[2021-01-04 08:04] LABS: Glucose Point of Care 158 mg/dl (65-105)
[2021-01-04 08:49] LABS: Anion Gap 10 mmol/L (8-16); Blood Urea Nitrogen 24 mg/dL (9-20); Calcium 7.3 mg/dL (8.4-10.2); Carbon Dioxide 18 mmol/L (22-30); Chloride 108 mmol/L (98-107); Estimated CRCL calculation 41 ml/min; Estimated Glomerular Filt Rate 24; Glucose 162 mg/dL (65-110); Potassium 4.1 mmol/L (3.4-5.0); Sodium 136 mmol/L (137-145)
--- NOTE | 2021-01-04 08:59 | PM.IMPN ---
Progress Note: A&P Assessment and Plan (1) Fungemia: Code(s): B49 - Unspecified mycosis Status: Acute Assessment and Plan: Simran glabrata and coagulase negative staph growth in blood on 12/20. Repeat blood cultures 12/22 have been negative Completed micafungin through December 28, per ID recommendation Picc line removed, surgery prefers not to put in central line with recent infection (2) RADHA (acute kidney injury): Code(s): N17.9 - Acute kidney failure, unspecified Status: Acute Assessment and Plan: Differential is wide: Prerenal versus Toxic ATN vs AIN due to multiple implicated medications, infection associated GN, etc. Was started on IVF yesterday, per nursing he has been eating and drinking with no issue, he is net + 12 L for the stay. Will stop IVF for now. Admission creatinine 0.8. Noted rising Cr, currently at 2.7 Renal ultrasound 01/02 without hydronephrosis or structural abnormalities. Check urinalysis Check CK level Strict I/Os For now will switch Zosyn to imipenem and discuss with infectious disease He is on pantoprazole home med Neph was consulted yesterday (3) Osteomyelitis: Code(s): M86.9 - Osteomyelitis, unspecified Status: Acute Assessment and Plan: From previous notes, Concern for osteomyelitis based on the fact that physical exam shows sacral ulcer is palpable to bone Currently on vancomycin and Zosyn as ordered by Infectious Disease Service Bone Cx 12/23 growing Pediococcus and Simran albicans Consulted surgery, appreciate help, underwent debridement 12/23, underwent diverting colostomy to prevent decub ulcer inoculation 12/30, surgical site healing well and colostomy working well. Pt seen by wound team pt has wound vac. Continue wound changes at bedside (4) Chronic atrial fibrillation with RVR: Code(s): I48.20 - Chronic atrial fibrillation, unspecified Status: Acute Assessment and Plan: Continues to be bradycardic, asymptomatic, digoxin on hold. Coreg low dose with hold parameters. (5) Gross hematuria: Code(s): R31.0 - Gross hematuria Status: Acute Assessment and Plan: Has undergone irrigation of Abarca with Urology. Pt seen by urology continue intermediate manager catheter as pt has bilateral LE amputations and decub ulcer. Catheter change Q monthly recommended (6) Acute UTI: Code(s): N39.0 - Urinary tract infection, site not specified Status: Acute Assessment and Plan: Possible cause of hematuria. Urine culture negative. this would have been treated as patient is on Zosyn for osteomyelitis. (7) Diabetes: Code(s): E11.9 - Type 2 diabetes mellitus without complications Status: Acute Assessment and Plan: A1c 8.6 in October. The patient's blood glucose was reviewed on 01/04, good control currently continue accuchecks and DM medications (8) Functional quadriplegia: Code(s): R53.2 - Functional quadriplegia Status: Acute Assessment and Plan: Patient is status post bilateral lower extremity amputation. 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 Patient needs full care. 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 Patient is currently on vancomycin p.o. b.i.d. through 01/18/2021. (10) Sacral decubitus ulcer: Code(s): L89.159 - Pressure ulcer of sacral region, unspecified stage Status: Acute Assessment and Plan: As above. Wound VAC. Continue full cares. (11) DVT prophylaxis: Code(s): Z29.9 - Encounter for prophylactic measures, unspecified Status: Acute Assessment and Plan: Heparin Subjective Date/time seen: 01/04/21 08:59 No major issues last night. Hemodynamically s
[2021-01-04] MEDS: PANTOPRAZOLE 40 MG TABLET PO ×2 (09:35→21:51)
[2021-01-04] MEDS: SOD HYPOCHLORITE 1/4 STRENGTH 473 ML 1 APPLIC TOPICAL ×2 (09:35→21:51)
[2021-01-04] MEDS: VANCOMYCIN ORAL 125 MG/2.5 ML SYRUP PO ×2 (09:35→21:51)
[2021-01-04] MEDS: POVIDONE-IODINE 10% OINT 30 GM TUBE 1 APPLIC TOPICAL (09:35)
[2021-01-04] MEDS: SODIUM CHLORIDE 0.9% IV 1,000 ML 100 ML IV CONT (09:38)
[2021-01-04 09:46] LABS: Creatine Kinase < 20 U/L (55-170)
[2021-01-04 11:30] LABS: Add Urine Microscopic? YES; Appearance Urine Turbid (Clear); Bilirubin Urine Negative (Negative); Blood Urine 2+ (Negative); Color Urine Yellow (Yellow); Glucose Urine UA 1+ mg/dL (Negative); Ketones Urine Negative (Negative); Leukocyte Esterase Ur 3+ LEU/UL (NEGATIVE); Nitrate Urine Negative (Negative); Protein Urine 2+ mg/dL (Negative); RBC Urine 51-75 /hpf (0-2); Specific Grav Ur 1.008 (1.001-1.035); Urobilinogen Urine Negative mg/dL (<2.0); WBC Clumps Urine Present /HPF; WBC Urine >75 /hpf (0-3)
[2021-01-04 12:13] LABS: Glucose Point of Care 165 mg/dl (65-105)
--- NOTE | 2021-01-04 12:28 | WPDUROPN2 ---
Progress Note: A&P Assessment and Plan (1) Urinary retention: Code(s): R33.9 - Retention of urine, unspecified Status: Acute Assessment and Plan: as per Dr Quezada plan- continue chronic shaw change q monthly (2) Acute UTI: Code(s): N39.0 - Urinary tract infection, site not specified Status: Acute (3) RADHA (acute kidney injury): Code(s): N17.9 - Acute kidney failure, unspecified Status: Acute Assessment and Plan: unclear etiology, normal TAURUS, no signs of urologic obstruction, consider nephrology evaluation, cr 2.7 Subjective Subjective Date/Time Seen: 01/04/21 12:28 urine draining clear, no blood, denies flank pain. Review of Systems Review of Systems: All systems reviewed & are unremarkable except as noted in HPI and below Cardiovascular: Cardiovascular: Denies chest pain, Denies lightheadedness, Denies palpitations and Denies dyspnea Respiratory: Respiratory: Reports no additional respiratory complaints and Denies dyspnea Gastrointestinal: Gastrointestinal: Reports abdominal pain, Denies diarrhea, Denies nausea and Denies vomiting Genitourinary: Genitourinary: Denies hematuria, Denies dysuria and Reports other (patient states he cannot hold a urinal and is afraid to have shaw removed) Endocrine: Endocrine: Denies palpitations Exam Const: General: cooperative, comfortable and no acute distress Chest: Chest palpation & inspection: normal inspection of the chest Resp: Effort & Inspection: normal respiratory effort Cardio: Rate: regular rate GI: Inspection: normal to inspection, non-distended and other (incision c/d/i, colostomy patent ) Auscultation: normal bowel sounds Rectal Exam: deferred : General: No Bladder palpation abnormal and Yes deferred (patient unable to sit up to examine CVA) Urinary Catheter: Urinary Catheter: patent and draining and urine clear Extrem: General: other (BLE amputation) Objective Data Vital Signs Vital Signs: Vital Signs - 24 hr 01/03/21 16:00 01/03/21 20:00 01/03/21 21:56 Temperature 35.7 C L Pulse Rate 55 L 52 L 62 Respiratory Rate 24 H Blood Pressure 137/53 L Pulse Oximetry 100 01/03/21 22:00 01/04/21 00:00 01/04/21 04:00 Temperature 36.2 C L Pulse Rate 64 63 58 L Respiratory Rate 18 Blood Pressure 131/48 L Pulse Oximetry 100 01/04/21 06:00 01/04/21 11:02 Temperature 36.0 C L Pulse Rate 56 L 48 L Respiratory Rate 18 Blood Pressure 115/55 L Pulse Oximetry 98 Intake/Output Intake/Output: Intake & Output 01/01/21 01/02/21 01/03/21 01/04/21 23:59 23:59 23:59 23:59 Intake Total 1290 1230 2400 1660 Output Total 414 199 2536 850 Balance 567 369 7781 810 Meds/Results Medications: Active Medications Generic Name Dose Route Start Last Admin Trade Name Freq PRN Reason Stop Dose Admin Acetaminophen 650 mg 12/30/20 15:33 Acetaminophen 325 Mg Tablet PO Q6H PRN Mild Pain (1-3) or Fever Hydrocodone Bitart/Acetaminophen 1 tab 12/30/20 15:33 Hydrocodone/Acetaminophen (*Crx) 5-325 Mg Tablet PO Q4H PRN Pain Rated 4-6 Hydrocodone Bitart/Acetaminophen 1 tab 12/30/20 15:33 01/03/21 21:55 Hydrocodone/Acetaminophen (*Crx) 10-325 Mg Tablet PO 1 tab Q6H PRN Administration Pain Rated 7-10 Carvedilol 3.125 mg 01/02/21 21:00 01/04/21 11:02 Carvedilol 3.125 Mg Tablet PO Not Given Q12HR [facility]OO[facility] Dextrose 12.5 gm 12/20/20 05:22 Dextrose 50% 25 Gm/50 Ml Syringe IV PUSH PRN PRN Hypoglycemia Protocol Digoxin 250 mcg 12/21/20 09:00 01/02/21 08:11 Digoxin 250 Mcg Tablet PO Not Given QAM [facility] Ergocalciferol 50,000 unit 12/23/20 09:00 12/30/20 15:51 Ergocalciferol 50,000 Unit Capsule FEED TUBE Not Given WEEKLY [facility] Glucagon 1 mg 12/20/20 05:22 Glucagon For Inj 1 Mg Vial IM PRN PRN Hypoglycemia Protocol Glucose 15 gm 12/20/20 05:22 Glucose Oral Gel 15 Gm Of Glucse
[2021-01-04 16:36] LABS: Glucose Point of Care 179 mg/dl (65-105)
[2021-01-04 21:14] LABS: Glucose Point of Care 184 mg/dl (65-105)
[2021-01-04] MEDS: INSULIN GLARGINE (*BKC) 100 UNITS/ML 25 UNITS SUB-Q (21:51)
[2021-01-05] VITALS (11 sets, daily range): BP systolic 128–165; BP diastolic 45–71; PULSE 54–67; RESP 18; TEMP 36.1–36.9; O2SAT 96–97
[2021-01-05] MEDS: TOLNAFTATE 1% POWDER 45 GM BTL 1 APPLIC TOPICAL ×3 (05:10→20:15)
[2021-01-05] MEDS: HEPARIN SODIUM 5,000 UNITS/ML VIAL 5000 UNITS SUB-Q ×3 (05:10→20:14)
[2021-01-05 06:33] LABS: Albumin Level 2.4 g/dL (3.5-5.1); Anion Gap 9 mmol/L (8-16); Blood Urea Nitrogen 26 mg/dL (9-20); Calcium 7.6 mg/dL (8.4-10.2); Carbon Dioxide 19 mmol/L (22-30); Chloride 108 mmol/L (98-107); Estimated CRCL calculation 34 ml/min; Estimated Glomerular Filt Rate 20; Glucose 182 mg/dL (65-110); Phosphorus 5.6 mg/dL (2.5-4.5); Sodium 136 mmol/L (137-145)
[2021-01-05 06:45] LABS: Basophils Percent Auto 0.4 % (0.2-1.2); Eosinophils Absolute Auto 0.1 K/mm3 (0-0.3); Eosinophils Percent Auto 1.3 % (0-4.4); Hematocrit 24.5 % (42.0-52.0); Hemoglobin 7.3 g/dL (14.0-18.0); Immature Granulocyte Absolute 0.04 K/mm3 (0.00-0.031); Immature Granulocyte Percent A 0.4 % (0-0.5); Lymphocytes Absolute Auto 0.69 K/mm3 (0.9-3.2); Lymphocytes Percent Auto 7.6 % (18.3-44.2); Mean Corpuscular HGB Conc 29.8 g/dl (32-36); Mean Corpuscular Volume 90.7 fl (80-100); Mean Platelet Volume 8.7 fl (7.4-10.4); Monocytes Absolute Auto 0.7 K/mm3 (0.1-0.6); Monocytes Percent Auto 7.2 % (2.6-8.5); Neutrophils Absolute Auto 7.6 K/mm3 (1.3-6.7); Neutrophils Percent Auto 83.1 % (45.5-73.1); Platelet Count Result 180 k/mm3 (150-375); Red Cell Distribution Width 20.6 % (11.5-14.5); White Blood Count 9.1 K/mm3 (4.5-10.0)
--- NOTE | 2021-01-05 07:00 | PC.NURSE ---
Dr Alcaraz notified of positive blood cultures
[2021-01-05 07:20] LABS: Microcytosis 2+ (NORMAL); Platelet Estimate Adequate (Adequate)
[2021-01-05 07:21] LABS: Anisocytosis 2+ (NORMAL); Hypochromasia 1+ (NORMAL)
[2021-01-05 08:18] LABS: Glucose Point of Care 157 mg/dl (65-105)
[2021-01-05] MEDS: carvediloL 3.125 MG TABLET PO ×2 (09:48→20:13)
[2021-01-05] MEDS: PANTOPRAZOLE 40 MG TABLET PO ×2 (09:48→20:14)
[2021-01-05] MEDS: VANCOMYCIN ORAL 125 MG/2.5 ML SYRUP PO ×2 (09:50→20:13)
--- NOTE | 2021-01-05 11:30 | PM.IMPN ---
Progress Note: A&P Assessment and Plan (1) Fungemia: Code(s): B49 - Unspecified mycosis Status: Acute Assessment and Plan: Simran glabrata and coagulase negative staph growth in blood on 12/20. Repeat blood cultures 12/22 have been negative Completed micafungin through December 28, per ID recommendation. Vanco stopped 01/02. PICC line removed but unable to be replaced. Central line ordered. Surgery to see about central line. If unable to place, then will need prolonged hospital course using PIVs (unless abx adjusted to oral or IM route for earlier discharge) (2) RADHA (acute kidney injury): Code(s): N17.9 - Acute kidney failure, unspecified Status: Acute Assessment and Plan: Differential is wide: Prerenal versus Toxic ATN vs AIN due to multiple implicated medications, infection associated GN, etc. Admission creatinine 0.8. Noted rising Cr, currently at 3.2. UOP 850 yesterday (but 800mL out so far today). Renal ultrasound 01/02 without hydronephrosis or structural abnormalities. CK<20. Urine eos rare. Rosa 69 with FENa 4.15% to suggest AIN. He was switched from Zosyn to imipenem Was started on IVF on 01/03 but he has been eating and drinking with no issue, he is net + 12 L for the stay so IVF stopped. Strict I/Os. Nephrology consult. May need steroids. (3) Osteomyelitis: Code(s): M86.9 - Osteomyelitis, unspecified Status: Acute Assessment and Plan: From previous notes, Concern for osteomyelitis based on the fact that physical exam shows sacral ulcer is palpable to bone Was on vancomycin and Zosyn as ordered by Infectious Disease Service Bone Cx 12/23 growing Pediococcus and Simran albicans Consulted surgery, appreciate help, underwent debridement 12/23, underwent diverting colostomy to prevent decub ulcer inoculation 12/30, surgical site healing well and colostomy working well. Pt seen by wound team pt has wound vac. Currently on Primaxin now. As above. Continue wound changes at bedside (4) Chronic atrial fibrillation with RVR: Code(s): I48.20 - Chronic atrial fibrillation, unspecified Status: Acute Assessment and Plan: Bradycardia improved off the Digoxin. Will contineu low dose Coreg with hold parameters. Resume Eliquis if no plans for central line, bx etc. Tele noted. Check Mag level and replace if needed. (5) Gross hematuria: Code(s): R31.0 - Gross hematuria Status: Acute Assessment and Plan: Has undergone irrigation of Abarca with Urology. Pt seen by urology continue usp catheter as pt has bilateral LE amputations and decub ulcer. Catheter change Q monthly recommended. Okay to resume anticoagulation when able (6) Acute UTI: Code(s): N39.0 - Urinary tract infection, site not specified Status: Acute Assessment and Plan: Possible cause of hematuria. Urine culture negative. this was treated with the broad spectrum abx. . (7) Diabetes: Code(s): E11.9 - Type 2 diabetes mellitus without complications Status: Acute Assessment and Plan: A1c 8.6 in October. The patient's blood glucose was reviewed on 01/05 Glucose remains in good control currently Continue Accuchecks and DM medications (8) Functional quadriplegia: Code(s): R53.2 - Functional quadriplegia Status: Acute Assessment and Plan: Patient is status post bilateral lower extremity amputation. 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 Patient needs full care. 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 Patient is currently on vancomycin p.o. b.i.d. through 01/18/2021. (10) Sacral decubitus ulcer: Code(s): L89.159 - Pressure ulcer of sacral region, unspecified stage St
--- NOTE | 2021-01-05 11:56 | PCNFU ---
Nutrition Follow-Up Complete: Inadequate oral intake related to diet order as evidenced by clear liquid. Goal: Patient to meet estimated nutritional needs. Patient is progressing towards goal. We will continue current goal. Pt current nutrition is DBCC Last recorded weight is 161.5 kg up from 140.2 kg on admit, spoke with nursing today bed scale is broke. New bed coming today. Bowel Motility: colostomy. Labs Reviewed:Glu 182,BUN 26,PO4 5.6,Na 136, Hct 24.5, Hgb 7.3 Meds Noted:Vancomycin,Dilaudid, Lantus, Heparin. Additional Notes: Patient seen today for nutrition follow up. DBCC diet with intake of 75-80% of meals. Patient remains on IV antibiotics. Colostomy in place, output good. Monitoring: Follow up every 5 days.
[2021-01-05 12:02] LABS: Magnesium 1.7 mg/dL (1.6-2.3)
[2021-01-05 12:22] LABS: Glucose Point of Care 142 mg/dl (65-105)
[2021-01-05] MEDS: SOD HYPOCHLORITE 1/4 STRENGTH 473 ML 1 APPLIC TOPICAL ×2 (12:29→20:15)
[2021-01-05] MEDS: MAGNESIUM SULF 1 GM/D5W 100 ML 1 GM/100 ML BAG IVPB (15:01)
[2021-01-05] MEDS: POVIDONE-IODINE 10% OINT 30 GM TUBE 1 APPLIC TOPICAL (15:02)
[2021-01-05] MEDS: HYDROcodone/acetaminophen (*CRX) 5-325 MG TABLET 1 TAB PO (15:10)
--- NOTE | 2021-01-05 16:20 | PM.CNNEP ---
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 - I worry about using steroids given his significant infectious disease issues... follow repeat labs and UOP for now (2) Sacral decubitus ulcer: Code(s): L89.159 - Pressure ulcer of sacral region, unspecified stage Status: Acute Assessment and Plan: complicated by osteomyelitis s/p diverting colostomy to allow for better healing local wound care (3) Fungemia: Code(s): B49 - Unspecified mycosis Status: Acute Assessment and Plan: as noted by blood/bone cultures on therapy per Infectious Disease Simran glabrata and coagulase negative staph growth in blood on 12/20; repeat blood cultures 12/22 negative completed micafungin course (completed on 12/28/20) per ID recommendations (4) Osteomyelitis: Code(s): M86.9 - Osteomyelitis, unspecified Status: Acute Assessment and Plan: bone culture (12/23/20) growing Pediococcus and Simran albicans was on vancomycin and zosyn but currently on primaxin continue current therapy (5) Gross hematuria: Code(s): R31.0 - Gross hematuria Status: Acute Assessment and Plan: Urology recommendations noted continue shaw catheter given immobility (6) Diabetes: Code(s): E11.9 - Type 2 diabetes mellitus without complications Status: Chronic Assessment and Plan: follow accuchecks glycemic control Will continue to follow. History of Present Illness Reason for Consult Consult date: 01/05/21 Reason for consult: acute renal failure Chief Complaint Chief complaint: bacteremia, UTI, sepsis History of Present Illness Narrative: The patient is a 60-year-old male with complex past medical history as outlined below who presented to [facility] ER from his nursing facility for further evaluation of hematuria. The patient has been having on and off problems with hematuria as nursing facility over the last several weeks. The nurses at his nursing facility have changes Shaw catheter several times in the hopes that this would correct issue but it seems to have not and if anything, seems to have worsened. Prior to his transfer to the ER, he was noted to have gross hematuria in association with increasing abdominal pain as the pain in his lower abdominal /suprapubic area seem to consistently increase despite all interventions done, he was transferred to the emergency room for further evaluation and therapy Evaluation in the emergency room demonstrated the patient to be hemodynamically stable but had significant discomfort in his lower abdominal/periumbilical/suprapubic area. Apparently, he had multiple and significant blood clot present in his Shaw catheter and extensive irrigation after a 3 way Shaw catheter was placed his urine still remained blood tinged but significantly better as was his pain. He reported no fevers but did admit to some recent nausea and vomiting. Given his complex history as noted and the constellation of symptoms that led to his presentation, he was admitted to the hospital for further evaluation and therapy. Urology was consulted with regard to his gross hematuria and although there was a concern for a possible urinary
--- NOTE | 2021-01-05 16:20 | P.CONNP_ITS ---
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 - I worry about using steroids given his significant infectious disease issues... * follow repeat labs and UOP for now (2) Sacral decubitus ulcer: Code(s): L89.159 - Pressure ulcer of sacral region, unspecified stage Status: Acute Assessment and Plan: * complicated by osteomyelitis * s/p diverting colostomy to allow for better healing * local wound care (3) Fungemia: Code(s): B49 - Unspecified mycosis Status: Acute Assessment and Plan: * as noted by blood/bone cultures * on therapy per Infectious Disease * Simran glabrata and coagulase negative staph growth in blood on 12/20; repeat blood cultures 12/22 negative * completed micafungin course (completed on 12/28/20) per ID recommendations (4) Osteomyelitis: Code(s): M86.9 - Osteomyelitis, unspecified Status: Acute Assessment and Plan: * bone culture (12/23/20) growing Pediococcus and Simran albicans * was on vancomycin and zosyn but currently on primaxin * continue current therapy (5) Gross hematuria: Code(s): R31.0 - Gross hematuria Status: Acute Assessment and Plan: * Urology recommendations noted * continue shaw catheter given immobility (6) Diabetes: Code(s): E11.9 - Type 2 diabetes mellitus without complications Status: Chronic Assessment and Plan: * follow accuchecks * glycemic control Will continue to follow. History of Present Illness Reason for Consult Consult date: 01/05/21 Reason for consult: acute renal failure Chief Complaint Chief complaint: bacteremia, UTI, sepsis History of Present Illness Narrative: The patient is a 60-year-old male with complex past medical history as outlined below who presented to [facility] ER from his nursing facility for further evaluation of hematuria. The patient has been having on and off problems with hematuria as nursing facility over the last several weeks. The nurses at his nursing facility have changes Shaw catheter several times in the hopes that this would correct issue but it seems to have not and if anything, seems to have worsened. Prior to his transfer to the ER, he was noted to have gross hematuria in association with increasing abdominal pain as the pain in his lower abdominal /suprapubic area seem to consistently increase despite all interventions done, he was transferred to the emergency room for further evaluation and therapy Evaluation in the emergency room demonstrated the patient to be hemodynamically stable but had significant discomfort in his lower abdominal/periumbilical/suprapubic area. Apparently, he had multiple and significant blood clot present in his Shaw catheter and extensive irrigation after a 3 way Shaw catheter was placed his urine still remained blood tinged
[2021-01-05 16:53] LABS: Glucose Point of Care 146 mg/dl (65-105)
[2021-01-05] MEDS: INSULIN GLARGINE (*BKC) 100 UNITS/ML 25 UNITS SUB-Q (20:12)
[2021-01-05 21:10] LABS: Glucose Point of Care 191 mg/dl (65-105)
[2021-01-06] VITALS (10 sets, daily range): BP systolic 132–148; BP diastolic 39–82; PULSE 48–76; RESP 18–20; TEMP 36.6–36.8; O2SAT 97–100
[2021-01-06] MEDS: TOLNAFTATE 1% POWDER 45 GM BTL 1 APPLIC TOPICAL ×3 (04:50→20:28)
[2021-01-06] MEDS: HEPARIN SODIUM 5,000 UNITS/ML VIAL 5000 UNITS SUB-Q ×3 (04:50→20:25)
[2021-01-06 06:08] LABS: Basophils Absolute Auto 0.1 K/mm3 (0.0-0.1); Basophils Percent Auto 0.7 % (0.2-1.2); Eosinophils Absolute Auto 0.1 K/mm3 (0-0.3); Eosinophils Percent Auto 1.5 % (0-4.4); Hematocrit 23.7 % (42.0-52.0); Immature Granulocyte Absolute 0.04 K/mm3 (0.00-0.031); Immature Granulocyte Percent A 0.5 % (0-0.5); Lymphocytes Absolute Auto 0.93 K/mm3 (0.9-3.2); Lymphocytes Percent Auto 10.9 % (18.3-44.2); Mean Corpuscular HGB Conc 29.5 g/dl (32-36); Mean Corpuscular Hemoglobin 26.5 pg (26-34); Mean Corpuscular Volume 89.8 fl (80-100); Mean Platelet Volume 8.7 fl (7.4-10.4); Monocytes Absolute Auto 0.5 K/mm3 (0.1-0.6); Monocytes Percent Auto 6.1 % (2.6-8.5); Neutrophils Absolute Auto 6.9 K/mm3 (1.3-6.7); Neutrophils Percent Auto 80.3 % (45.5-73.1); Platelet Count Result 168 k/mm3 (150-375); Red Blood Count 2.64 M/mm3 (4.6-6.20); Red Cell Distribution Width 20.4 % (11.5-14.5); White Blood Count 8.6 K/mm3 (4.5-10.0)
[2021-01-06 06:14] LABS: Albumin Level 2.3 g/dL (3.5-5.1); Anion Gap 9 mmol/L (8-16); Blood Urea Nitrogen 28 mg/dL (9-20); Calcium 7.7 mg/dL (8.4-10.2); Carbon Dioxide 19 mmol/L (22-30); Chloride 107 mmol/L (98-107); Estimated CRCL calculation 34 ml/min; Estimated Glomerular Filt Rate 20; Glucose 174 mg/dL (65-110); Phosphorus 5.3 mg/dL (2.5-4.5); Potassium 3.8 mmol/L (3.4-5.0); Sodium 135 mmol/L (137-145)
[2021-01-06 07:47] LABS: Anisocytosis 1+ (NORMAL); Hypochromasia 1+ (NORMAL); Platelet Estimate Adequate (Adequate)
[2021-01-06 07:48] LABS: Poikilocytosis 1+ (NORMAL)
[2021-01-06 08:08] LABS: Glucose Point of Care 160 mg/dl (65-105)
--- NOTE | 2021-01-06 09:59 | P.PNNP_ITS ---
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 - I worry about using steroids given his significant infectious disease issues... * follow repeat labs and UOP as well trend for now (2) Sacral decubitus ulcer: Code(s): L89.159 - Pressure ulcer of sacral region, unspecified stage Status: Acute Assessment and Plan: * complicated by osteomyelitis * s/p diverting colostomy to allow for better healing * local wound care (3) Fungemia: Code(s): B49 - Unspecified mycosis Status: Acute Assessment and Plan: * as noted by blood/bone cultures * Simran glabrata and coagulase negative staph growth in blood on 12/20; repeat blood cultures 12/22 negative * completed micafungin course (completed on 12/28/20) per ID recommendations (4) Osteomyelitis: Code(s): M86.9 - Osteomyelitis, unspecified Status: Acute Assessment and Plan: * bone culture (12/23/20) growing Pediococcus and Simran albicans * was on vancomycin and zosyn but currently on primaxin * continue current therapy (5) Gross hematuria: Code(s): R31.0 - Gross hematuria Status: Acute Assessment and Plan: * Urology recommendations noted * continue shaw catheter given immobility (6) Diabetes: Code(s): E11.9 - Type 2 diabetes mellitus without complications Status: Chronic Assessment and Plan: * follow accuchecks * on SSI and Lantus Will continue to follow. Subjective Date/time seen: 01/06/21 09:59 Other the profound fatigue/tiredness today; no other acute complaints; still has on/off buttock pain but his abdominal pain is better/improved; no issues/events overnight or earlier this AM -- he did sleep well overnight. Exam Narrative: General: WD/WN male in NAD Heart: normal S1 and S2; no rub Lungs: clear to auscultation Abdomen: soft, nontender, nondistended, positive bowel sounds; colostomy noted Extremities: no cyanosis or clubbing; trace edema - s/p left AKA and right BKA Skin: warm and dry Objective Data Vital Signs Vital Signs: Vital Signs Temp Pulse Resp BP Pulse Ox 01/06/21 09:24 97 01/06/21 08:00 36.6 C 76 18 142/55 H 97 01/06/21 06:00 36.8 C 69 18 132/54 L 97 01/06/21 04:00 69 01/06/21 00:00 63 01/05/21 21:52 36.9 C 61 18 128/50 L 97 01/05/21 20:13 62 01/05/21 20:00 61 18 97 01/05/21 16:13 36.6 C 54 L 18 165/71 H 97 01/05/21 16:00 59 L 01/05/21 12:00 67 Intake/Output Intake/Output: Intake & Output 01/03/21 01/04/21 01/05/21 01/06/21 23:59 23:59
--- NOTE | 2021-01-06 09:59 | PM.PNNEP ---
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 - I worry about using steroids given his significant infectious disease issues... 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 - Unspecified mycosis Status: Acute Assessment and Plan: as noted by blood/bone cultures Simran glabrata and coagulase negative staph growth in blood on 12/20; repeat blood cultures 12/22 negative completed micafungin course (completed on 12/28/20) per ID recommendations (4) Osteomyelitis: Code(s): M86.9 - Osteomyelitis, unspecified Status: Acute Assessment and Plan: bone culture (12/23/20) growing Pediococcus and Simran albicans was on vancomycin and zosyn but currently on primaxin continue current therapy (5) Gross hematuria: Code(s): R31.0 - Gross hematuria Status: Acute Assessment and Plan: Urology recommendations noted continue shaw catheter given immobility (6) Diabetes: Code(s): E11.9 - Type 2 diabetes mellitus without complications Status: Chronic Assessment and Plan: follow accuchecks on SSI and Lantus Will continue to follow. Subjective Date/time seen: 01/06/21 09:59 Other the profound fatigue/tiredness today; no other acute complaints; still has on/off buttock pain but his abdominal pain is better/improved; no issues/events overnight or earlier this AM -- he did sleep well overnight. Exam Narrative: General: WD/WN male in NAD Heart: normal S1 and S2; no rub Lungs: clear to auscultation Abdomen: soft, nontender, nondistended, positive bowel sounds; colostomy noted Extremities: no cyanosis or clubbing; trace edema - s/p left AKA and right BKA Skin: warm and dry Objective Data Vital Signs Vital Signs: Vital Signs Temp Pulse Resp BP Pulse Ox 01/06/21 09:24 97 01/06/21 08:00 36.6 C 76 18 142/55 H 97 01/06/21 06:00 36.8 C 69 18 132/54 L 97 01/06/21 04:00 69 01/06/21 00:00 63 01/05/21 21:52 36.9 C 61 18 128/50 L 97 01/05/21 20:13 62 01/05/21 20:00 61 18 97 01/05/21 16:13 36.6 C 54 L 18 165/71 H 97 01/05/21 16:00 59 L 01/05/21 12:00 67 Intake/Output Intake/Output: Intake & Output 01/03/21 01/04/21 01/05/21 01/06/21 23:59 23:59 23:59 23:59 Intake Total 2400 2477 2040 420 Output Total 1275 1125 1950 900 Balance 1125 1352 90 -480 Meds/Results Medications: Active Medications Generic Name Dose Route Start Last Admin Trade Name Freq PRN Reason Stop Dose Admin Acetaminophen 650 mg 12/30/20 15:33 Acetaminophen 325 Mg Tablet PO Q6H PRN Mild Pain (1-3) or Fever Hydrocodone Bitart/Acetaminophen 1 tab 12/30/20 15:33 01/05/21 15:10 Hydrocodone/Acetaminophen (*Crx) 5-325 Mg Tablet PO 1 tab Q4H PRN Administration Pain Rated 4-6 Hydrocodone Bitart/Acetaminophen 1 tab 12/30/20 15:33 01/03/21 21:55 Hydrocodone/Acetaminophen (*Crx) 10-32
[2021-01-06] MEDS: carvediloL 3.125 MG TABLET PO (11:11)
[2021-01-06] MEDS: ERGOCALCIFEROL 50,000 UNIT CAPSULE 50000 UNITS FEED TUBE (11:11)
[2021-01-06] MEDS: SOD HYPOCHLORITE 1/4 STRENGTH 473 ML 1 APPLIC TOPICAL ×2 (11:12→20:28)
[2021-01-06] MEDS: PANTOPRAZOLE 40 MG TABLET PO ×2 (11:12→20:25)
[2021-01-06] MEDS: HYDROcodone/acetaminophen (*CRX) 5-325 MG TABLET 1 TAB PO (11:19)
[2021-01-06] MEDS: VANCOMYCIN ORAL 125 MG/2.5 ML SYRUP PO ×2 (11:24→20:25)
[2021-01-06 11:51] LABS: Glucose Point of Care 148 mg/dl (65-105)
--- NOTE | 2021-01-06 15:21 | PM.IMPN ---
Progress Note: A&P Assessment and Plan (1) Fungemia: Code(s): B49 - Unspecified mycosis Status: Acute Assessment and Plan: Simran glabrata and coagulase negative staph growth in blood on 12/20. Repeat blood cultures 12/22 have been negative Completed micafungin through December 28, per ID recommendation. Vanco stopped 01/02. PICC line removed but unable to be replaced. Central line ordered. Surgery to see about central line and this may be placed iin 2 days. (2) RADHA (acute kidney injury): Code(s): N17.9 - Acute kidney failure, unspecified Status: Acute Assessment and Plan: Differential is wide: Prerenal versus Toxic ATN vs AIN due to multiple implicated medications, infection associated GN, etc. Admission creatinine 0.8. Noted rising Cr, currently at 3.2 and stable. Renal ultrasound 01/02 without hydronephrosis or structural abnormalities. CK<20. Urine eos rare. Rosa 69 with FENa 4.15% to suggest AIN. He was switched from Zosyn to imipenem. Nephrology consulted and appreciate their input. (3) Osteomyelitis: Code(s): M86.9 - Osteomyelitis, unspecified Status: Acute Assessment and Plan: Concern for osteomyelitis based on the fact that physical exam shows sacral ulcer is palpable to bone Was on vancomycin and Zosyn as ordered by Infectious Disease Service Bone Cx 12/23 growing Pediococcus and Simran albicans Consulted surgery and he underwent debridement 12/23; underwent diverting colostomy to prevent decub ulcer inoculation 12/30, abdominal surgical site healing well and colostomy working well. Pt seen by wound team. Patient has wound vac. Currently on Primaxin now. As above. Continue wound changes at bedside. Plan for 4 weeks of IV abx (Day 15) (4) Chronic atrial fibrillation with RVR: Code(s): I48.20 - Chronic atrial fibrillation, unspecified Status: Acute Assessment and Plan: Bradycardia improved off the Digoxin. Now having prolonged pauses. Could be from sleeep apnea. Will stop Coreg. Resume Eliquis when able. Check Mag level (5) Gross hematuria: Code(s): R31.0 - Gross hematuria Status: Acute Assessment and Plan: Has undergone irrigation of [place]barca with Urology. Pt seen by urology continue long-term catheter as pt has bilateral LE amputations and decub ulcer. Catheter change monthly recommended. Okay to resume anticoagulation when able (6) Acute UTI: Code(s): N39.0 - Urinary tract infection, site not specified Status: Acute Assessment and Plan: Possible cause of hematuria. Urine culture negative. this was treated with the broad spectrum abx. (7) Diabetes: Code(s): E11.9 - Type 2 diabetes mellitus without complications Status: Acute Assessment and Plan: A1c 8.6 in October. The patient's blood glucose was reviewed on 01/06 Glucose remains in reasonably good control Continue Accuchecks with sliding scale protocol. Hypoglycemia protocol available as needed. Continue Lantus (8) Functional quadriplegia: Code(s): R53.2 - Functional quadriplegia Status: Acute Assessment and Plan: Patient is status post bilateral lower extremity amputation. 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 Patient needs full care. 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 Patient is currently on vancomycin p.o. b.i.d. through 01/18/2021. (10) Sacral decubitus ulcer: Code(s): L89.159 - Pressure ulcer of sacral region, unspecified stage Status: Acute Assessment and Plan: As above. Continue wound VAC. Continue full care. (11) DVT prophylaxis: Code(s): Z29.9 - Encounter for prophylactic measures, unspecified Status: Acute
[2021-01-06 16:55] LABS: Glucose Point of Care 197 mg/dl (65-105)
[2021-01-06 17:15] LABS: Magnesium 1.7 mg/dL (1.6-2.3)
[2021-01-06] MEDS: MAGNESIUM SULF 2 GM/WATER 50ML 2 GM/50 ML BAG IVPB (18:00)
[2021-01-06] MEDS: INSULIN GLARGINE (*BKC) 100 UNITS/ML 25 UNITS SUB-Q (20:40)
[2021-01-06 21:02] LABS: Glucose Point of Care 222 mg/dl (65-105)
[2021-01-07] VITALS: PULSE 60
[2021-01-07 04:00] VITALS: PULSE 59
[2021-01-07] MEDS: HEPARIN SODIUM 5,000 UNITS/ML VIAL 5000 UNITS SUB-Q ×3 (04:47→21:00)
[2021-01-07] MEDS: TOLNAFTATE 1% POWDER 45 GM BTL 1 APPLIC TOPICAL ×3 (04:51→21:00)
[2021-01-07 04:58] VITALS: BP 141/56; PULSE 68; RESP 18; TEMP 36.7; O2SAT 100
[2021-01-07 05:47] LABS: Basophils Percent Auto 0.5 % (0.2-1.2); Eosinophils Absolute Auto 0.2 K/mm3 (0-0.3); Eosinophils Percent Auto 1.8 % (0-4.4); Hematocrit 25.8 % (42.0-52.0); Hemoglobin 7.7 g/dL (14.0-18.0); Immature Granulocyte Absolute 0.07 K/mm3 (0.00-0.031); Immature Granulocyte Percent A 0.8 % (0-0.5); Lymphocytes Percent Auto 10.9 % (18.3-44.2); Mean Corpuscular HGB Conc 29.8 g/dl (32-36); Mean Corpuscular Hemoglobin 27.2 pg (26-34); Mean Corpuscular Volume 91.2 fl (80-100); Mean Platelet Volume 8.7 fl (7.4-10.4); Monocytes Absolute Auto 0.6 K/mm3 (0.1-0.6); Monocytes Percent Auto 7.5 % (2.6-8.5); Neutrophils Absolute Auto 6.5 K/mm3 (1.3-6.7); Neutrophils Percent Auto 78.5 % (45.5-73.1); Platelet Count Result 172 k/mm3 (150-375); Red Blood Count 2.83 M/mm3 (4.6-6.20); Red Cell Distribution Width 20.4 % (11.5-14.5); White Blood Count 8.3 K/mm3 (4.5-10.0)
[2021-01-07 06:01] LABS: Albumin Level 2.4 g/dL (3.5-5.1); Anion Gap 8 mmol/L (8-16); Blood Urea Nitrogen 32 mg/dL (9-20); Calcium 7.9 mg/dL (8.4-10.2); Carbon Dioxide 19 mmol/L (22-30); Chloride 107 mmol/L (98-107); Estimated CRCL calculation 32 ml/min; Estimated Glomerular Filt Rate 19; Glucose 175 mg/dL (65-110); Phosphorus 5.7 mg/dL (2.5-4.5); Sodium 134 mmol/L (137-145)
[2021-01-07 08:10] LABS: Glucose Point of Care 156 mg/dl (65-105)
[2021-01-07] MEDS: PANTOPRAZOLE 40 MG TABLET PO ×2 (10:30→20:59)
[2021-01-07] MEDS: HYDROcodone/acetaminophen (*CRX) 5-325 MG TABLET 1 TAB PO ×2 (10:33→15:00)
[2021-01-07] MEDS: VANCOMYCIN ORAL 125 MG/2.5 ML SYRUP PO ×2 (10:36→20:59)
--- NOTE | 2021-01-07 11:53 | PM.IMPN ---
Progress Note: A&P Assessment and Plan (1) Chronic atrial fibrillation with RVR: Code(s): I48.20 - Chronic atrial fibrillation, unspecified Status: Acute Assessment and Plan: Patient with bradycardia but improved off the Digoxin and lower dose Coreg. Now having prolonged pauses so Coreg stopped (last dose was 01/06 at 11:11am). Could be from sleeep apnea but apnea link showing AHI 8 and RI 8.3 but he states he was awake for most of it. Mag 2.0. Resume Eliquis when able. Consult Cards.Continue tele. 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 Repeat blood cultures 12/22 have been negative Completed micafungin through December 28, per ID recommendation. Vanco stopped 01/02. PICC line removed but unable to be replaced. Central line ordered. Surgery to see about central line and this may be placed later this week (3) RADHA (acute kidney injury): Code(s): N17.9 - Acute kidney failure, unspecified Status: Acute Assessment and Plan: Differential is wide: Prerenal versus Toxic ATN vs AIN due to multiple implicated medications, infection associated GN, etc. Admission creatinine 0.8. Noted rising Cr, currently at 3.4. Renal ultrasound 01/02 without hydronephrosis or structural abnormalities. CK<20. Urine eos rare. Rosa 69 with FENa 4.15% to suggest AIN. He was switched from Zosyn to imipenem. Nephrology consulted and appreciate their input. (4) Osteomyelitis: Code(s): M86.9 - Osteomyelitis, unspecified Status: Acute Assessment and Plan: Concern for osteomyelitis based on the fact that physical exam shows sacral ulcer is palpable to bone Was on vancomycin and Zosyn as ordered by Infectious Disease Service Bone Cx 12/23 growing Pediococcus and Simran albicans Consulted surgery and he underwent debridement 12/23; underwent diverting colostomy to prevent decub ulcer inoculation 12/30, abdominal surgical site healing well and colostomy working well but appears dusky today with blood in bag - GS aware. Pt seen by wound team. Patient has wound vac. Currently on Primaxin now. As above. Continue wound changes at bedside. Plan for 4 weeks of IV abx (Day 16) (5) Gross hematuria: Code(s): R31.0 - Gross hematuria Status: Acute Assessment and Plan: Has undergone irrigation of Abarca with Urology. Pt seen by urology. 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 Catheter change monthly recommended. Okay to resume anticoagulation when able (6) Diabetes: Code(s): E11.9 - Type 2 diabetes mellitus without complications Status: Acute Assessment and Plan: A1c 8.6 in October. The patient's blood glucose was reviewed on 01/07 Glucose remains in reasonably good control Continue Accuchecks with sliding scale protocol. Hypoglycemia protocol available as needed. Continue Lantus (7) Functional quadriplegia: Code(s): R53.2 - Functional quadriplegia Status: Acute Assessment and Plan: Patient is status post bilateral lower extremity amputation. 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 Patient needs full care. 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 Patient is currently on vancomycin p.o. b.i.d. through 01/18/2021. (9) Sacral decubitus ulcer: Code(s): L89.159 - Pressure ulcer of sacral region, unspecified stage Status: Acute Assessment and Plan: As above. Continue wound VAC. Continue full care. (10) Acute UTI: Code(s): N39.0 - Urinary tract infection, site not specified Status: Acute Assessment and Plan: Po
--- NOTE | 2021-01-07 12:17 | PM.PNGS ---
Progress Note: A&P Assessment and Plan (1) Sacral decubitus ulcer: Code(s): L89.159 - Pressure ulcer of sacral region, unspecified stage Status: Acute Assessment and Plan: Patient will need IV antibiotics until 01/18. Might need fci IV access but PICC line too difficult to place. Will consider Tom catheter if renal function improves. Cr seems to be gradually rising since diverting colostomy. I did not have to mobilize colon much, so I don't think ureteral injury is very likely, but it might benefit to get a CT abd/pelvis to check for any signs of complication. Renal u/s after surgery did not show any abnormalities, but I don't know if this will be as sensitive. (2) Osteomyelitis: Code(s): M86.9 - Osteomyelitis, unspecified Status: Acute (3) Functional quadriplegia: Code(s): R53.2 - Functional quadriplegia Status: Acute (4) RADHA (acute kidney injury): Code(s): N17.9 - Acute kidney failure, unspecified Status: Acute Subjective Subjective Date/Time Seen: 01/07/21 12:17 Interval history: Patient seen and examined today. Ostomy still functioning. Wound vac changes going well. Pain improved. Exam GI: Inspection: incision (c/d/i) and other (Ostomy slightly dark red colored and edematous, but functioning.) Objective Data Vital Signs Vital Signs: Vital Signs - 24 hr 01/06/21 16:00 01/06/21 19:38 01/06/21 20:00 Temperature 36.6 C Pulse Rate 60 62 48 L Respiratory Rate 18 20 20 Blood Pressure 141/39 H 148/82 H Pulse Oximetry 100 97 97 01/06/21 23:55 01/07/21 00:00 01/07/21 04:00 Temperature Pulse Rate 60 59 L Respiratory Rate Blood Pressure Pulse Oximetry 98 01/07/21 04:58 Temperature 36.7 C Pulse Rate 68 Respiratory Rate 18 Blood Pressure 141/56 H Pulse Oximetry 100 Intake/Output Intake/Output: Intake & Output 01/04/21 01/05/21 01/06/21 01/07/21 23:59 23:59 23:59 23:59 Intake Total 2477 2040 1490 1000 Output Total 1125 1950 1800 900 Balance 1352 90 -310 100 Meds/Results Medications: Active Medications Generic Name Dose Route Start Last Admin Trade Name Freq PRN Reason Stop Dose Admin Acetaminophen 650 mg 12/30/20 15:33 Acetaminophen 325 Mg Tablet PO Q6H PRN Mild Pain (1-3) or Fever Hydrocodone Bitart/Acetaminophen 1 tab 12/30/20 15:33 01/07/21 10:33 Hydrocodone/Acetaminophen (*Crx) 5-325 Mg Tablet PO 1 tab Q4H PRN Administration Pain Rated 4-6 Hydrocodone Bitart/Acetaminophen 1 tab 12/30/20 15:33 01/03/21 21:55 Hydrocodone/Acetaminophen (*Crx) 10-325 Mg Tablet PO 1 tab Q6H PRN Administration Pain Rated 7-10 Carvedilol 3.125 mg 01/02/21 21:00 01/06/21 11:11 Carvedilol 3.125 Mg Tablet PO 3.125 mg Q12HR FAROOQ Administration Dextrose 12.5 gm 12/20/20 05:22 Dextrose 50% 25 Gm/50 Ml Syringe IV PUSH PRN PRN Hypoglycemia Protocol Ergocalciferol 50,000 unit 12/23/20 09:00 01/06/21 11:11 Ergocalciferol 50,000 Unit Capsule FEED TUBE 50,000 unit WEEKLY FAROOQ Administration Glucagon 1 mg 12/20/20 05:22 Glucagon For Inj 1 Mg Vial IM PRN PRN Hypoglycemia Protocol Glucose 15 gm 12/20/20 05:22 Glucose Oral Gel 15 Gm Of Glucse In 37.5 Gm Tube PO PRN PRN Hypoglycemia Protocol Heparin Sodium (Porcine) 5,000 units 12/30/20 22:00 01/07/21 04:47 Heparin Sodium 5,000 Units/Ml Vial SUB-Q 5,000 units Q8HR FAROOQ Administration Hydromorphone HCl 0.5 mg 12/30/20 15:33 01/01/21 00:26 Hydromorphone Hcl Inj (*Crx) 1 Mg/Ml Syr IV PUSH 0.5 mg Q2H PRN Administration Pain Rated 4-6 Hydromorphone HCl 1 mg 12/30/20 15:33 01/02/21 10:45 Hydromorphone Hcl Inj (*Crx) 1 Mg/Ml Syr IV PUSH 1 mg Q2H PRN Administration Pain Rated 7-10 Dextrose 1,000 mls @ 100 mls/hr 08/28/21 05:22 Dextrose 5% 1,000 Ml IVPB PRN PRN Hypoglycemia Protocol Imipenem/Cilast
[2021-01-07 12:19] LABS: Glucose Point of Care 158 mg/dl (65-105)
[2021-01-07 14:00] VITALS: BP 156/56; PULSE 75; RESP 20; TEMP 36.1; O2SAT 98
--- NOTE | 2021-01-07 15:17 | PM.PNCARD ---
Progress Note: A&P Assessment and Plan (1) Chronic atrial fibrillation with RVR: Code(s): I48.20 - Chronic atrial fibrillation, unspecified Status: Acute Assessment and Plan: Chronic atrial fibrillation. He developed RVR earlier this hospitalization which was controlled with digoxin and carvedilol. Remains in atrial fibrillation now with slow ventricular response. He is experiencing occasional pauses. The longest pause noted on telemetry was 4.2 seconds. Pauses/bradycardia occurring during sleep and wake hours. He had an apnea link last night but he says that he did not sleep during the time the ApneaLink was on. Difficult to assess for any associated symptoms of syncope, presyncope, dizziness as patient is nonambulatory. Blood pressure has remained stable. No further cardiac up indicated for pauses less than 5 seconds in atrial fibrillation Continue to hold carvedilol for now. 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 Initially placed on hold in the setting of hematuria and recent surgical debridement of sacral decubitus as well as debridement of R stump necrosis. Eliquis remains on hold due to ongoing possibility of invasive procedures. Currently on subQ heparin. Resume Eliquis when determined to be appropriate by General surgery. Subjective Date/time seen: 01/07/21 15:17 Interval history: Cardiology follow up for atrial fibrillation Date of service 12/23/2020: Feels well today. Awaiting OR for debridement of sacral wound Date of service 12/25/2020: No complaints today. Says he has decided to proceed with elective colostomy placement in hopes of decreasing risk of further sacral wound infections. Date of service 01/07/2021: Patient is now status post colostomy placement. Wound VAC to sacral decubitus that has been debrided during this hospitalization. Now with worsening renal function. He has been having bradycardia with pauses. Review of Systems Constitutional: Constitutional: Reports weakness Eyes: Eyes: Reports no additional eye complaints ENT: Reports system reviewed and no additional complaints, except as documented Cardiovascular: Cardiovascular: Reports no additional cardiovascular complaints Respiratory: Respiratory: Reports no additional respiratory complaints Gastrointestinal: Gastrointestinal: Reports diarrhea Genitourinary: Genitourinary: Reports as per HPI Musculoskeletal: Musculoskeletal: Reports no additional musculoskeletal complaints Integumentary/Breasts: Skin/Breast: Reports system reviewed and no additional complaints, except as docu Neurologic: Reports system reviewed and no additional complaints, except as documented and Reports weakness Psychiatric: Psychiatric: Reports no additional psychiatric complaints Endocrine: Endocrine: Reports no additional endocrine complaints Hematologic/Lymphatic: Hematologic/Lymphatic: Reports no additional hematologic/lymphatic complaints Allergic/Immunologic: Allergic/Immunologic: Reports no additional allergic/immunologic complaints Exam Const: General: comfortable and no acute distress Orientation/consciousness: patient oriented x3 Other: Massively obese man in bed rest no distress HENMT: Mouth: Yes moist mucous membranes Eyes: Sclera: sclerae normal Pupils: Equal, round and reactive pupils present Neck: Neck: supple Resp: Effort & Inspection: normal respiratory effort Auscultation: clear to auscultation bilaterally and diminished lung sounds Other: Distant breath sounds Cardio: Rate: bradycardic Rhythm: abnormal rhythm irregularly irregular Heart sounds: no murmurs GI: Inspection: other ( Colostomy noted) Auscultation: normal bowel sounds Urinary Catheter: Urinary Catheter: patent and draining and urine clear Skin
[2021-01-07] MEDS: SOD HYPOCHLORITE 1/4 STRENGTH 473 ML 1 APPLIC TOPICAL ×2 (16:39→20:59)
--- NOTE | 2021-01-07 16:47 | P.PNNP_ITS ---
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 - I worry about using steroids given his significant infectious disease issues... * follow repeat labs and UOP as well trend for now (2) Sacral decubitus ulcer: Code(s): L89.159 - Pressure ulcer of sacral region, unspecified stage Status: Acute Assessment and Plan: * complicated by osteomyelitis * s/p diverting colostomy to allow for better healing * local wound care (3) Fungemia: Code(s): B49 - Unspecified mycosis Status: Acute Assessment and Plan: * as noted by blood/bone cultures * Simran glabrata and coagulase negative staph growth in blood on 12/20; repeat blood cultures 12/22 negative * completed micafungin course (completed on 12/28/20) per ID recommendations (4) Osteomyelitis: Code(s): M86.9 - Osteomyelitis, unspecified Status: Acute Assessment and Plan: * bone culture (12/23/20) growing Pediococcus and Simran albicans * was on vancomycin and zosyn but currently on primaxin * continue current therapy (5) Gross hematuria: Code(s): R31.0 - Gross hematuria Status: Acute Assessment and Plan: * Urology recommendations noted * continue shaw catheter given immobility (6) Diabetes: Code(s): E11.9 - Type 2 diabetes mellitus without complications Status: Chronic Assessment and Plan: * follow accuchecks * on SSI and Lantus Will continue to follow. Subjective Date/time seen: 01/07/21 16:47 Per telemetry, having some sinus pauses at night but asymptomatic from it; did not sleep well overnight due to apnea link; no other acute issues or problems voiced; no other events/issues overnight or earlier this AM. Exam Narrative: General: WD/WN male in NAD Heart: normal S1 and S2; no rub Lungs: clear to auscultation Abdomen: soft, nontender, nondistended, positive bowel sounds; colostomy noted Extremities: no cyanosis or clubbing; trace edema - s/p left AKA and right BKA Skin: warm and intact Objective Data Vital Signs Vital Signs: Vital Signs Temp Pulse Resp BP Pulse Ox 01/07/21 14:00 36.1 C L 75 20 156/56 H 98 01/07/21 04:58 36.7 C 68 18 141/56 H 100 01/07/21 04:00 59 L 01/07/21 00:00 60 01/06/21 23:55 98 01/06/21 20:00 48 L 20 97 01/06/21 19:38 36.6 C 62 20 148/82 H 97 Intake/Output Intake/Output: Intake & Output 01/04/21 01/05/21 01/06/21 01/07/21 23:59 23:59 23:59 23:59 Intake Total 2477 2040 1490 1560 Output Total 1125 1950 1800 1850 Balance 9576 56 -689 -474
--- NOTE | 2021-01-07 16:47 | PM.PNNEP ---
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 - I worry about using steroids given his significant infectious disease issues... 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 - Unspecified mycosis Status: Acute Assessment and Plan: as noted by blood/bone cultures Simran glabrata and coagulase negative staph growth in blood on 12/20; repeat blood cultures 12/22 negative completed micafungin course (completed on 12/28/20) per ID recommendations (4) Osteomyelitis: Code(s): M86.9 - Osteomyelitis, unspecified Status: Acute Assessment and Plan: bone culture (12/23/20) growing Pediococcus and Simran albicans was on vancomycin and zosyn but currently on primaxin continue current therapy (5) Gross hematuria: Code(s): R31.0 - Gross hematuria Status: Acute Assessment and Plan: Urology recommendations noted continue shaw catheter given immobility (6) Diabetes: Code(s): E11.9 - Type 2 diabetes mellitus without complications Status: Chronic Assessment and Plan: follow accuchecks on SSI and Lantus Will continue to follow. Subjective Date/time seen: 01/07/21 16:47 Per telemetry, having some sinus pauses at night but asymptomatic from it; did not sleep well overnight due to apnea link; no other acute issues or problems voiced; no other events/issues overnight or earlier this AM. Exam Narrative: General: WD/WN male in NAD Heart: normal S1 and S2; no rub Lungs: clear to auscultation Abdomen: soft, nontender, nondistended, positive bowel sounds; colostomy noted Extremities: no cyanosis or clubbing; trace edema - s/p left AKA and right BKA Skin: warm and intact Objective Data Vital Signs Vital Signs: Vital Signs Temp Pulse Resp BP Pulse Ox 01/07/21 14:00 36.1 C L 75 20 156/56 H 98 01/07/21 04:58 36.7 C 68 18 141/56 H 100 01/07/21 04:00 59 L 01/07/21 00:00 60 01/06/21 23:55 98 01/06/21 20:00 48 L 20 97 01/06/21 19:38 36.6 C 62 20 148/82 H 97 Intake/Output Intake/Output: Intake & Output 01/04/21 01/05/21 01/06/21 01/07/21 23:59 23:59 23:59 23:59 Intake Total 2477 2040 1490 1560 Output Total 1125 1950 1800 1850 Balance 1352 90 -310 -290 Meds/Results Medications: Active Medications Generic Name Dose Route Start Last Admin Trade Name Freq PRN Reason Stop Dose Admin Acetaminophen 650 mg 12/30/20 15:33 Acetaminophen 325 Mg Tablet PO Q6H PRN Mild Pain (1-3) or Fever Hydrocodone Bitart/Acetaminophen 1 tab 12/30/20 15:33 01/07/21 15:00 Hydrocodone/Acetaminophen (*Crx) 5-325 Mg Tablet PO 1 tab Q4H PRN Administration Pain Rated 4-6 Hydrocodone Bitart/Acetaminophen 1 tab 12/30/20 15:33 01/03/21 21:55 Hydrocodone/Acetaminophen (*Crx) 10-325 Mg Tablet PO 1 tab Q6H PRN Administration Pain Rated 7-10 Carvedilol 3.125 mg 01/02/21
[2021-01-07 17:13] LABS: Glucose Point of Care 211 mg/dl (65-105)
[2021-01-07] MEDS: INSULIN ASPART (*BKC) 100 UNITS/ML SUB-Q (17:49)
[2021-01-07 20:00] VITALS: PULSE 62
[2021-01-07 20:58] VITALS: BP 145/61; PULSE 62; RESP 16; TEMP 36.5; O2SAT 100
[2021-01-07] MEDS: INSULIN GLARGINE (*BKC) 100 UNITS/ML 25 UNITS SUB-Q (21:01)
[2021-01-07 21:09] LABS: Glucose Point of Care 227 mg/dl (65-105)
[2021-01-07 21:37] LABS: Creatinine Urine 32.7 mg/dL; Sodium Urine Random 55 meq/L
[2021-01-08] VITALS (9 sets, daily range): BP systolic 144–158; BP diastolic 60–67; PULSE 62–78; RESP 18; TEMP 36.3–36.5; O2SAT 99
[2021-01-08] MEDS: TOLNAFTATE 1% POWDER 45 GM BTL 1 APPLIC TOPICAL ×3 (05:20→21:01)
[2021-01-08] MEDS: HEPARIN SODIUM 5,000 UNITS/ML VIAL 5000 UNITS SUB-Q ×3 (05:20→21:02)
[2021-01-08 06:10] LABS: Hematocrit 25.6 % (42.0-52.0); Hemoglobin 7.5 g/dL (14.0-18.0); Mean Corpuscular HGB Conc 29.3 g/dl (32-36); Mean Corpuscular Hemoglobin 26.9 pg (26-34); Mean Corpuscular Volume 91.8 fl (80-100); Mean Platelet Volume 8.6 fl (7.4-10.4); Platelet Count Result 178 k/mm3 (150-375); Red Blood Count 2.79 M/mm3 (4.6-6.20); Red Cell Distribution Width 20.1 % (11.5-14.5); White Blood Count 8.1 K/mm3 (4.5-10.0)
[2021-01-08 06:29] LABS: Albumin Level 2.3 g/dL (3.5-5.1); Anion Gap 10 mmol/L (8-16); Blood Urea Nitrogen 34 mg/dL (9-20); Calcium 7.8 mg/dL (8.4-10.2); Carbon Dioxide 18 mmol/L (22-30); Chloride 107 mmol/L (98-107); Creatine Kinase < 20 U/L (55-170); Estimated CRCL calculation 31 ml/min; Estimated Glomerular Filt Rate 18; Glucose 182 mg/dL (65-110); Magnesium 2.1 mg/dL (1.6-2.3); Phosphorus 5.6 mg/dL (2.5-4.5); Sodium 135 mmol/L (137-145)
[2021-01-08] MEDS: VANCOMYCIN ORAL 125 MG/2.5 ML SYRUP PO ×2 (08:12→21:01)
[2021-01-08] MEDS: SOD HYPOCHLORITE 1/4 STRENGTH 473 ML 1 APPLIC TOPICAL ×2 (08:12→21:01)
[2021-01-08] MEDS: PANTOPRAZOLE 40 MG TABLET PO ×2 (08:12→21:01)
[2021-01-08 08:15] LABS: Glucose Point of Care 157 mg/dl (65-105)
--- NOTE | 2021-01-08 08:32 | PM.PNCARD ---
Progress Note: A&P Assessment and Plan (1) Chronic atrial fibrillation with RVR: Code(s): I48.20 - Chronic atrial fibrillation, unspecified Status: Acute Assessment and Plan: Chronic atrial fibrillation. He developed RVR earlier this hospitalization which was controlled with digoxin and carvedilol. Remains in atrial fibrillation now with slow ventricular response. He is experiencing occasional pauses. The longest pause noted on telemetry was 4.2 seconds. Pauses/bradycardia occurring during sleep and wake hours. Difficult to assess for any associated symptoms of syncope, presyncope, dizziness as patient is nonambulatory. Blood pressure has remained stable. No further cardiac up indicated for pauses less than 5 seconds in atrial fibrillation. Continue to hold carvedilol for now. Continue to monitor on telemetry (2) Anticoagulant long-term use: Code(s): Z79.01 - long-term (current) use of anticoagulants Status: Acute Assessment and Plan: Previously eliquis for systemic A/C. Initially placed on hold in the setting of hematuria and recent surgical debridement of sacral decubitus as well as debridement of R stump necrosis. Eliquis remains on hold due to ongoing possibility of invasive procedures. Currently on subQ heparin. Resume Eliquis when determined to be appropriate by General surgery. Additional Plan Persistent atrial fibrillation initially with rapid ventricular response. Now experiencing variable ventricular response with pauses. Longest pause seen on telemetry 4.2 seconds. No indication for further cardiac work up at this time. Will continue to follow along with you on an as needed basis. Subjective Date/time seen: 01/08/21 08:32 Interval history: Cardiology follow up for atrial fibrillation Date of service 12/23/2020: Feels well today. Awaiting OR for debridement of sacral wound Date of service 12/25/2020: No complaints today. Says he has decided to proceed with elective colostomy placement in hopes of decreasing risk of further sacral wound infections. Date of service 01/07/2021: Patient is now status post colostomy placement. Wound VAC to sacral decubitus that has been debrided during this hospitalization. Now with worsening renal function. He has been having bradycardia with pauses. Date of service 01/08/2021: Pauses noted on telemetry overnight. Currently in AFib with a rate in the 70s. Review of Systems Constitutional: Constitutional: Reports weakness Eyes: Eyes: Reports no additional eye complaints ENT: Reports system reviewed and no additional complaints, except as documented Cardiovascular: Cardiovascular: Reports no additional cardiovascular complaints Respiratory: Respiratory: Reports no additional respiratory complaints Gastrointestinal: Gastrointestinal: Reports diarrhea Genitourinary: Genitourinary: Reports as per HPI Musculoskeletal: Musculoskeletal: Reports no additional musculoskeletal complaints Integumentary/Breasts: Skin/Breast: Reports system reviewed and no additional complaints, except as docu Neurologic: Reports system reviewed and no additional complaints, except as documented and Reports weakness Psychiatric: Psychiatric: Reports no additional psychiatric complaints Endocrine: Endocrine: Reports no additional endocrine complaints Hematologic/Lymphatic: Hematologic/Lymphatic: Reports no additional hematologic/lymphatic complaints Allergic/Immunologic: Allergic/Immunologic: Reports no additional allergic/immunologic complaints Exam Const: General: comfortable and no acute distress Orientation/consciousness: patient oriented x3 Other: Massively obese man in bed rest no distress HENMT: Mouth: Yes moist mucous membranes Eyes: Sclera: sclerae normal Pupils: Equal, round and reactive pupils present Neck: Neck: supple Resp: Effort & Inspection: normal respiratory effort Auscultation: clear to auscultatio
[2021-01-08 12:25] LABS: Glucose Point of Care 188 mg/dl (65-105)
--- NOTE | 2021-01-08 14:06 | PM.IMPN ---
Progress Note: A&P Assessment and Plan (1) Chronic atrial fibrillation with RVR: Code(s): I48.20 - Chronic atrial fibrillation, unspecified Status: Acute Assessment and Plan: Patient with bradycardia but improved off the Digoxin and lower dose Coreg. Now having prolonged pauses so Coreg stopped (last dose was 01/06 at 11:11am). Could be from sleep apnea but apnea link showing AHI 8 and RI 8.3 but he states he was awake for most of it. Mag 2.0. Pause was up to 4.5sec but better now. Appreciate cardiology input. Resume Eliquis when able. Continue tele. 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 Repeat blood cultures 12/22 are negative Completed micafungin through December 28, per ID recommendation. Vanco stopped 01/02. PICC line removed but unable to be replaced. Central line ordered. Surgery to see about central line and this may be placed later this week (3) RADHA (acute kidney injury): Code(s): N17.9 - Acute kidney failure, unspecified Status: Acute Assessment and Plan: Differential is wide: Prerenal versus Toxic ATN vs AIN due to multiple implicated medications, infection associated GN, etc. Admission creatinine 0.8. Noted rising Cr, currently at 3.4. Renal ultrasound 01/02 without hydronephrosis or structural abnormalities. CK<20. Urine eos rare. Rosa 69 with FENa 4.15% to suggest AIN. He was switched from Zosyn to imipenem. Nephrology consulted and appreciate their input. Surgery note reviewed. CT A/P cancelled because patient too big for scanner. Discussed with Nephrology (4) Osteomyelitis: Code(s): M86.9 - Osteomyelitis, unspecified Status: Acute Assessment and Plan: Concern for osteomyelitis based on the fact that physical exam shows sacral ulcer is palpable to bone Was on vancomycin and Zosyn as ordered by Infectious Disease Service Bone Cx 12/23 growing Pediococcus and Simran albicans Consulted surgery and he underwent debridement 12/23; underwent diverting colostomy to prevent decub ulcer inoculation 12/30, abdominal surgical site healing well and colostomy working well but appears dusky today with blood in bag - GS aware. Pt seen by wound team. Patient has wound vac. Currently on Primaxin now. As above. Continue wound changes at bedside. Plan for 4 weeks of IV abx (Day 17) (5) Gross hematuria: Code(s): R31.0 - Gross hematuria Status: Acute Assessment and Plan: Has undergone irrigation of [place] with Urology. Pt seen by urology. Continue virtual assistant for advertisers catheter as pt has bilateral LE amputations and decub ulcer. Catheter change monthly recommended. Okay to resume anticoagulation when able. (6) Diabetes: Code(s): E11.9 - Type 2 diabetes mellitus without complications Status: Acute Assessment and Plan: A1c 8.6 in October. The patient's blood glucose was reviewed on 01/08 Glucose mildly elevated at times. Continue Accuchecks with sliding scale protocol. Hypoglycemia protocol available as needed. Continue Lantus. (7) Functional quadriplegia: Code(s): R53.2 - Functional quadriplegia Status: Acute Assessment and Plan: Patient is status post bilateral lower extremity amputation. 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 Patient needs full care. 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 Patient is currently on vancomycin p.o. b.i.d. through 01/18/2021. (9) Sacral decubitus ulcer: Code(s): L89.159 - Pressure ulcer of sacral region, unspecified stage Status: Acute Assessment and Plan: As above. Continue wound VAC. Continue full care.
--- NOTE | 2021-01-08 15:36 | P.PNNP_ITS ---
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 - I worry about using steroids given his significant infectious disease issues...BUT, his creatinine continues to rise - should we do further imaging (ie. CT scan of abdomen?) * follow repeat labs and UOP as well trend for now (2) Sacral decubitus ulcer: Code(s): L89.159 - Pressure ulcer of sacral region, unspecified stage Status: Acute Assessment and Plan: * complicated by osteomyelitis * s/p diverting colostomy to allow for better healing * local wound care (3) Fungemia: Code(s): B49 - Unspecified mycosis Status: Acute Assessment and Plan: * as noted by blood/bone cultures * Simran glabrata and coagulase negative staph growth in blood on 12/20; repeat blood cultures 12/22 negative * completed micafungin course (completed on 12/28/20) per ID recommendations (4) Osteomyelitis: Code(s): M86.9 - Osteomyelitis, unspecified Status: Acute Assessment and Plan: * bone culture (12/23/20) growing Pediococcus and Simran albicans * was on vancomycin and zosyn but currently on primaxin * continue current therapy (5) Gross hematuria: Code(s): R31.0 - Gross hematuria Status: Acute Assessment and Plan: * Urology recommendations noted * continue shaw catheter given immobility (6) Diabetes: Code(s): E11.9 - Type 2 diabetes mellitus without complications Status: Chronic Assessment and Plan: * follow accuchecks * on SSI and Lantus Discussed case with Dr. Bledsoe. Will continue to follow. Subjective Date/time seen: 01/08/21 15:36 Had significant pain issues localized to his right flank when he was rolled to change the wound vac over his sacral wound/ulcer; aside from this; denies any other acute issues or problems at this time; eating and drinking reasonably well; no events overnight. Exam Narrative: General: WD/WN male in NAD Heart: normal S1 and S2; no rub Lungs: clear to auscultation Abdomen: soft, nontender, nondistended, positive bowel sounds; colostomy noted Extremities: no cyanosis or clubbing; trace edema - s/p left AKA and right BKA Skin: no rash Objective Data Vital Signs Vital Signs: Vital Signs Temp Pulse Resp BP Pulse Ox 01/08/21 16:00 66 01/08/21 14:00 36.3 C L 69 18 144/67 H 99 01/08/21 12:00 62 01/08/21 08:15 78 01/08/21 05:18 36.3 C L 63 18 153/65 H 99 01/08/21 04:00 62 01/08/21 00:00 66 01/07/21 20:58 36.5 C 62 16 145/61 H 100 01/07/21 20:00 62 Intake/Output Intake/Output
--- NOTE | 2021-01-08 15:36 | PM.PNNEP ---
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 - I worry about using steroids given his significant infectious disease issues...BUT, his creatinine continues to rise - should we do further imaging (ie. CT scan of abdomen?) 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 - Unspecified mycosis Status: Acute Assessment and Plan: as noted by blood/bone cultures Simran glabrata and coagulase negative staph growth in blood on 12/20; repeat blood cultures 12/22 negative completed micafungin course (completed on 12/28/20) per ID recommendations (4) Osteomyelitis: Code(s): M86.9 - Osteomyelitis, unspecified Status: Acute Assessment and Plan: bone culture (12/23/20) growing Pediococcus and Simran albicans was on vancomycin and zosyn but currently on primaxin continue current therapy (5) Gross hematuria: Code(s): R31.0 - Gross hematuria Status: Acute Assessment and Plan: Urology recommendations noted continue shaw catheter given immobility (6) Diabetes: Code(s): E11.9 - Type 2 diabetes mellitus without complications Status: Chronic Assessment and Plan: follow accuchecks on SSI and Lantus Discussed case with Dr. Bledsoe. Will continue to follow. Subjective Date/time seen: 01/08/21 15:36 Had significant pain issues localized to his right flank when he was rolled to change the wound vac over his sacral wound/ulcer; aside from this; denies any other acute issues or problems at this time; eating and drinking reasonably well; no events overnight. Exam Narrative: General: WD/WN male in NAD Heart: normal S1 and S2; no rub Lungs: clear to auscultation Abdomen: soft, nontender, nondistended, positive bowel sounds; colostomy noted Extremities: no cyanosis or clubbing; trace edema - s/p left AKA and right BKA Skin: no rash Objective Data Vital Signs Vital Signs: Vital Signs Temp Pulse Resp BP Pulse Ox 01/08/21 16:00 66 01/08/21 14:00 36.3 C L 69 18 144/67 H 99 01/08/21 12:00 62 01/08/21 08:15 78 01/08/21 05:18 36.3 C L 63 18 153/65 H 99 01/08/21 04:00 62 01/08/21 00:00 66 01/07/21 20:58 36.5 C 62 16 145/61 H 100 01/07/21 20:00 62 Intake/Output Intake/Output: Intake & Output 01/05/21 01/06/21 01/07/21 01/08/21 23:59 23:59 23:59 23:59 Intake Total 2040 1490 1760 1850 Output Total 1950 1800 1850 2150 Balance 90 310 -90 -300 Meds/Results Medications: Active Medications Generic Name Dose Route Start Last Admin Trade Name Freq PRN Reason Stop Dose Admin Acetaminophen 650 mg 12/30/20 15:33 Acetaminophen 325 Mg Tablet PO Q6H PRN Mild Pain (1-3) or Fever Hydrocodone Bitart/Acetaminophen 1 tab 12/30/20 15:33 01/07/21 15:00 Hydrocodone/Acetaminophen (*Crx) 5-325 Mg Tablet PO 1 tab Q4H PRN Administration Pain Rated 4-6
[2021-01-08 17:28] LABS: Glucose Point of Care 244 mg/dl (65-105)
[2021-01-08] MEDS: INSULIN ASPART (*BKC) 100 UNITS/ML SUB-Q (17:29)
[2021-01-08] MEDS: INSULIN GLARGINE (*BKC) 100 UNITS/ML 25 UNITS SUB-Q (21:02)
[2021-01-08 21:10] LABS: Glucose Point of Care 260 mg/dl (65-105)
[2021-01-09] VITALS (8 sets, daily range): BP systolic 131–143; BP diastolic 47–63; PULSE 59–78; RESP 14–18; TEMP 35.9–36.5; O2SAT 97–98
[2021-01-09] MEDS: ONDANSETRON INJ 4 MG/2 ML VIAL IV PUSH (01:18)
[2021-01-09] MEDS: HYDROcodone/acetaminophen (*CRX) 10-325 MG TABLET 1 TAB PO ×3 (05:20→22:08)
[2021-01-09] MEDS: TOLNAFTATE 1% POWDER 45 GM BTL 1 APPLIC TOPICAL ×3 (05:21→22:09)
[2021-01-09] MEDS: HEPARIN SODIUM 5,000 UNITS/ML VIAL 5000 UNITS SUB-Q ×3 (05:21→22:05)
[2021-01-09 05:54] LABS: Albumin Level 2.4 g/dL (3.5-5.1); Anion Gap 9 mmol/L (8-16); Blood Urea Nitrogen 36 mg/dL (9-20); Calcium 7.9 mg/dL (8.4-10.2); Carbon Dioxide 19 mmol/L (22-30); Chloride 108 mmol/L (98-107); Estimated CRCL calculation 32 ml/min; Estimated Glomerular Filt Rate 19; Glucose 199 mg/dL (65-110); Magnesium 1.9 mg/dL (1.6-2.3); Phosphorus 5.2 mg/dL (2.5-4.5); Potassium 3.8 mmol/L (3.4-5.0); Sodium 136 mmol/L (137-145)
[2021-01-09 06:09] LABS: Basophils Absolute Auto 0.1 K/mm3 (0.0-0.1); Basophils Percent Auto 0.8 % (0.2-1.2); Eosinophils Absolute Auto 0.2 K/mm3 (0-0.3); Eosinophils Percent Auto 1.9 % (0-4.4); Hematocrit 25.4 % (42.0-52.0); Hemoglobin 7.6 g/dL (14.0-18.0); Immature Granulocyte Percent A 1.2 % (0-0.5); Lymphocytes Absolute Auto 0.91 K/mm3 (0.9-3.2); Lymphocytes Percent Auto 10.8 % (18.3-44.2); Mean Corpuscular HGB Conc 29.9 g/dl (32-36); Mean Corpuscular Hemoglobin 27.4 pg (26-34); Mean Corpuscular Volume 91.7 fl (80-100); Mean Platelet Volume 8.5 fl (7.4-10.4); Monocytes Absolute Auto 0.6 K/mm3 (0.1-0.6); Monocytes Percent Auto 6.9 % (2.6-8.5); Neutrophils Absolute Auto 6.6 K/mm3 (1.3-6.7); Neutrophils Percent Auto 78.4 % (45.5-73.1); Platelet Count Result 180 k/mm3 (150-375); Red Blood Count 2.77 M/mm3 (4.6-6.20); Red Cell Distribution Width 19.9 % (11.5-14.5); White Blood Count 8.5 K/mm3 (4.5-10.0)
[2021-01-09 08:30] LABS: Glucose Point of Care 171 mg/dl (65-105)
[2021-01-09] MEDS: VANCOMYCIN ORAL 125 MG/2.5 ML SYRUP PO ×2 (08:34→22:05)
[2021-01-09] MEDS: PANTOPRAZOLE 40 MG TABLET PO ×2 (08:34→22:05)
[2021-01-09] MEDS: SOD HYPOCHLORITE 1/4 STRENGTH 473 ML 1 APPLIC TOPICAL ×2 (08:34→22:09)
[2021-01-09 11:31] LABS: Anisocytosis 1+ (NORMAL); Hypochromasia 2+ (NORMAL); Platelet Estimate Adequate (Adequate); Poikilocytosis 1+ (NORMAL)
--- NOTE | 2021-01-09 11:31 | PCNFU ---
Nutrition Follow-Up Complete: Inadequate oral intake related to diet order as evidenced by clear liquid. Goal: Patient to meet estimated nutritional needs. Patient is progressing towards goal. We will continue current goal. Pt current nutrition is DBCC, Easy to Chew, Level 7. Last recorded weight is 161.3 kg, up from 140.2 kg on admit. Bowel Motility:colostomy Labs Reviewed:Glu 199, GFR 19,BUN 36,Cr 3.4,Alb 2.4 Meds Noted:Lantus, Heparin, Byron, Vancomycin, Protonix. Additional Notes: Nutrition follow up. Patient seen today. He states to eating well-100% reported. He does have assistance with meals. Easy to chew diet for dentition. IV antibiotics continue. Diet supplements of Glucerna shakes BID providing an additional 220 kcal and 10 gms protein. Agree with diet orders. Monitoring: Follow up every 5 days.
[2021-01-09 12:36] LABS: Glucose Point of Care 162 mg/dl (65-105)
--- NOTE | 2021-01-09 14:14 | P.PNNP_ITS ---
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 - I worry about using steroids given his significant infectious disease issues... - creatinine appears to have peaked/plateaued at 3.5mg/dl -- maybe this is just ATN that is just slow to recover(?)... * follow repeat labs and UOP as well trend for now (2) Sacral decubitus ulcer: Code(s): L89.159 - Pressure ulcer of sacral region, unspecified stage Status: Acute Assessment and Plan: * complicated by osteomyelitis * s/p diverting colostomy to allow for better healing * local wound care and wound vac (3) Fungemia: Code(s): B49 - Unspecified mycosis Status: Acute Assessment and Plan: * as noted by blood/bone cultures * Simran glabrata and coagulase negative staph growth in blood on 12/20; repeat blood cultures 12/22 negative * completed micafungin course (completed on 12/28/20) per ID recommendations (4) Osteomyelitis: Code(s): M86.9 - Osteomyelitis, unspecified Status: Acute Assessment and Plan: * bone culture (12/23/20) growing Pediococcus and Simran albicans * was on vancomycin and zosyn but currently on primaxin * continue current therapy (5) Gross hematuria: Code(s): R31.0 - Gross hematuria Status: Acute Assessment and Plan: * Urology recommendations noted * continue shaw catheter given immobility and sacral wound (6) Diabetes: Code(s): E11.9 - Type 2 diabetes mellitus without complications Status: Chronic Assessment and Plan: * follow accuchecks * on SSI and Lantus Will continue to follow. Subjective Date/time seen: 01/09/21 14:14 Seems to be feeling reasonably well; some pain issues when he is rolled with most recent wound vac change but this appears better not; continues to eat and drink normally; pain control stable; no other acute issues/events overnight or earlier this AM. Exam Narrative: General: WD/WN male in NAD Heart: normal S1 and S2; no rub Lungs: clear to auscultation Abdomen: soft, nontender, nondistended, positive bowel sounds; colostomy noted Extremities: no cyanosis or clubbing; trace edema - s/p left AKA and right BKA Skin: no nodules Objective Data Vital Signs Vital Signs: Vital Signs Temp Pulse Resp BP Pulse Ox 01/09/21 12:00 60 01/09/21 08:40 74 01/09/21 05:23 36.4 C L 78 18 131/61 98 01/09/21 04:00 66 01/09/21 00:00 64 01/08/21 20:00 64 01/08/21 19:41 36.5 C 67 18 158/60 H 99 01/08/21 16:00 66 Intake/Output Intake/Output: Intake & Output
--- NOTE | 2021-01-09 14:14 | PM.PNNEP ---
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 - I worry about using steroids given his significant infectious disease issues... - creatinine appears to have peaked/plateaued at 3.5mg/dl -- maybe this is just ATN that is just slow to recover(?)... follow repeat labs and UOP as well trend for now (2) Sacral decubitus ulcer: Code(s): L89.159 - Pressure ulcer of sacral region, unspecified stage Status: Acute Assessment and Plan: complicated by osteomyelitis s/p diverting colostomy to allow for better healing local wound care and wound vac (3) Fungemia: Code(s): B49 - Unspecified mycosis Status: Acute Assessment and Plan: as noted by blood/bone cultures Simran glabrata and coagulase negative staph growth in blood on 12/20; repeat blood cultures 12/22 negative completed micafungin course (completed on 12/28/20) per ID recommendations (4) Osteomyelitis: Code(s): M86.9 - Osteomyelitis, unspecified Status: Acute Assessment and Plan: bone culture (12/23/20) growing Pediococcus and Simran albicans was on vancomycin and zosyn but currently on primaxin continue current therapy (5) Gross hematuria: Code(s): R31.0 - Gross hematuria Status: Acute Assessment and Plan: Urology recommendations noted continue shaw catheter given immobility and sacral wound (6) Diabetes: Code(s): E11.9 - Type 2 diabetes mellitus without complications Status: Chronic Assessment and Plan: follow accuchecks on SSI and Lantus Will continue to follow. Subjective Date/time seen: 01/09/21 14:14 Seems to be feeling reasonably well; some pain issues when he is rolled with most recent wound vac change but this appears better not; continues to eat and drink normally; pain control stable; no other acute issues/events overnight or earlier this AM. Exam Narrative: General: WD/WN male in NAD Heart: normal S1 and S2; no rub Lungs: clear to auscultation Abdomen: soft, nontender, nondistended, positive bowel sounds; colostomy noted Extremities: no cyanosis or clubbing; trace edema - s/p left AKA and right BKA Skin: no nodules Objective Data Vital Signs Vital Signs: Vital Signs Temp Pulse Resp BP Pulse Ox 01/09/21 12:00 60 01/09/21 08:40 74 01/09/21 05:23 36.4 C L 78 18 131/61 98 01/09/21 04:00 66 01/09/21 00:00 64 01/08/21 20:00 64 01/08/21 19:41 36.5 C 67 18 158/60 H 99 01/08/21 16:00 66 Intake/Output Intake/Output: Intake & Output 01/06/21 01/07/21 01/08/21 01/09/21 23:59 23:59 23:59 23:59 Intake Total 1490 1760 1850 1280 Output Total 1800 1850 2150 1775 Balance -310 -90 -300 -495 Meds/Results Medications: Active Medications Generic Name Dose Route Start Last Admin Trade Name Freq PRN Reason Stop Dose Admin Acetaminophen 650 mg 12/30/20 15:33 Acetaminophen 325 Mg Tablet PO Q6H PRN Mild Pain (1-3) or Fever Hydrocodone Bitart/Acetaminophen 1 tab 12/30/20 15:33 01/07/21 15:00 Hydrocodone/Acetaminophen (*Crx) 5-325 Mg Tablet PO 1 tab Q4H PRN Administration Pain Rated 4-6 Hydrocodone Bitart/Acetaminoph
--- NOTE | 2021-01-09 15:00 | P.PNIM_ITS ---
Progress Note: A&P Assessment and Plan (1) RADHA (acute kidney injury): Code(s): N17.9 - Acute kidney failure, unspecified Status: Acute Assessment and Plan: Differential is wide: Prerenal versus Toxic ATN vs AIN due to multiple implicated medications, infection associated GN, etc. Admission creatinine 0.8. Noted rising Cr. Renal ultrasound 01/02 without hydronephrosis or structural abnormalities. CK<20. Urine eos rare. Rosa 69 with FENa 4.15% to suggest AIN. He was switched from Zosyn to imipenem. Nephrology consulted and appreciate their input. Surgery note reviewed. CT A/P cancelled because patient too big for scanner. Discussed with Nephrology (2) Chronic atrial fibrillation with RVR: Code(s): I48.20 - Chronic atrial fibrillation, unspecified Status: Acute Assessment and Plan: Patient with bradycardia but improved off the Digoxin and lower dose Coreg. Now having prolonged pauses up to 4.5sec so Coreg stopped (last dose was 01/06 at 11:11am). Could be from sleep apnea but apnea link showing AHI 8 and RI 8.3 but he states he was awake for most of it. Still with occasional pauses but not the the degree it was. Appreciate cardiology input. Resume Eliquis when able. Continue tele. 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 Repeat blood cultures 12/22 are negative Completed micafungin through December 28, per ID recommendation. Vanco stopped 01/02. PICC line removed but unable to be replaced. Central line ordered. Surgery to see about central line and this may be placed once renal function improves (4) Osteomyelitis: Code(s): M86.9 - Osteomyelitis, unspecified Status: Acute Assessment and Plan: Concern for osteomyelitis based on the fact that physical exam shows sacral ulcer is palpable to bone Was on vancomycin and Zosyn as ordered by Infectious Disease Service Bone Cx 12/23 growing Pediococcus and Simran albicans Consulted surgery and he underwent debridement 12/23; underwent diverting colostomy to prevent decub ulcer inoculation 12/30, abdominal surgical site healing well and colostomy working well but appears mildly dusky today with blood in bag - GS aware. Pt seen by wound team. Patient has wound vac that is being changed periodically. Unable to get repeat CT. Currently on Primaxin now and ID is aware and agreed. As above. Continue wound changes at bedside. Plan for 4 weeks of IV abx (Day 18). (5) Gross hematuria: Code(s): R31.0 - Gross hematuria Status: Acute Assessment and Plan: Has undergone irrigation of [place] with Urology. Pt seen by urology. Continue shelter catheter as pt has bilateral LE amputations and decub ulcer. Catheter change monthly recommended. Okay to resume anticoagulation when able. (6) Diabetes: Code(s): E11.9 - Type 2 diabetes mellitus without complications Status: Acute Assessment and Plan: A1c 8.6 in October. The patient's blood glucose was reviewed on 01/09 Glucose more elevated now Continue Accuchecks with sliding scale protocol. Hypoglycemia protocol available as needed. Will advance Lantus. (7) Functional quadriplegia: Code(s): R53.2 - Functional quadriplegia Status: Acute Assessment and Plan: Patient is status post bilateral lower extremity amputation. 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 Patient needs full care. (8) C. difficile colitis:
[2021-01-09 16:50] LABS: Glucose Point of Care 201 mg/dl (65-105)
[2021-01-09] MEDS: INSULIN ASPART (*BKC) 100 UNITS/ML SUB-Q (18:00)
[2021-01-09 21:37] LABS: Glucose Point of Care 258 mg/dl (65-105)
[2021-01-09] MEDS: INSULIN GLARGINE (*BKC) 100 UNITS/ML 28 UNITS SUB-Q (22:06)
[2021-01-10] VITALS (8 sets, daily range): BP systolic 120–146; BP diastolic 44–67; PULSE 68–89; RESP 18–20; TEMP 35–36.6; O2SAT 97–100
[2021-01-10] MEDS: TOLNAFTATE 1% POWDER 45 GM BTL 1 APPLIC TOPICAL ×3 (05:02→21:21)
[2021-01-10] MEDS: HEPARIN SODIUM 5,000 UNITS/ML VIAL 5000 UNITS SUB-Q ×3 (05:02→21:19)
[2021-01-10 06:24] LABS: Hematocrit 23.9 % (42.0-52.0); Hemoglobin 7.2 g/dL (14.0-18.0); Mean Corpuscular HGB Conc 30.1 g/dl (32-36); Mean Corpuscular Hemoglobin 27.3 pg (26-34); Mean Corpuscular Volume 90.5 fl (80-100); Mean Platelet Volume 8.6 fl (7.4-10.4); Platelet Count Result 189 k/mm3 (150-375); Red Blood Count 2.64 M/mm3 (4.6-6.20); Red Cell Distribution Width 20.1 % (11.5-14.5); White Blood Count 9.1 K/mm3 (4.5-10.0)
[2021-01-10 06:36] LABS: Albumin Level 2.2 g/dL (3.5-5.1); Anion Gap 7 mmol/L (8-16); Blood Urea Nitrogen 38 mg/dL (9-20); Calcium 7.6 mg/dL (8.4-10.2); Carbon Dioxide 22 mmol/L (22-30); Chloride 106 mmol/L (98-107); Estimated CRCL calculation 36 ml/min; Estimated Glomerular Filt Rate 22; Glucose 227 mg/dL (65-110); Magnesium 1.8 mg/dL (1.6-2.3); Phosphorus 5.2 mg/dL (2.5-4.5); Potassium 3.9 mmol/L (3.4-5.0); Sodium 135 mmol/L (137-145)
[2021-01-10] MEDS: PANTOPRAZOLE 40 MG TABLET PO ×2 (08:23→21:19)
[2021-01-10] MEDS: SOD HYPOCHLORITE 1/4 STRENGTH 473 ML 1 APPLIC TOPICAL ×2 (08:23→21:18)
[2021-01-10] MEDS: VANCOMYCIN ORAL 125 MG/2.5 ML SYRUP PO ×2 (08:23→21:21)
[2021-01-10] MEDS: INSULIN ASPART (*BKC) 100 UNITS/ML SUB-Q ×3 (08:25→17:45)
[2021-01-10 09:12] LABS: Glucose Point of Care 216 mg/dl (65-105)
--- NOTE | 2021-01-10 11:53 | PM.IMPN ---
Progress Note: A&P Assessment and Plan (1) RADHA (acute kidney injury): Code(s): N17.9 - Acute kidney failure, unspecified Status: Acute Assessment and Plan: Differential is wide: Prerenal versus Toxic ATN vs AIN due to multiple implicated medications, infection associated GN, etc. Admission creatinine 0.8. Noted rising Cr. Renal ultrasound 01/02 without hydronephrosis or structural abnormalities. CK<20. Urine eos rare. Rosa 69 with FENa 4.15% to suggest AIN. He was switched from Zosyn to imipenem. Nephrology consulted and appreciate their input. Surgery note reviewed. CT A/P cancelled because patient too big for scanner. Discussed with Nephrology (2) Chronic atrial fibrillation with RVR: Code(s): I48.20 - Chronic atrial fibrillation, unspecified Status: Acute Assessment and Plan: Patient with bradycardia but improved off the Digoxin and lower dose Coreg. Now having prolonged pauses up to 4.5sec so Coreg stopped (last dose was 01/06 at 11:11am). Could be from sleep apnea but apnea link showing AHI 8 and RI 8.3 but he states he was awake for most of it. Still with occasional pauses but not the the degree it was. Appreciate cardiology input. Resume Eliquis when able. Continue tele. 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 Repeat blood cultures 12/22 are negative Completed micafungin through December 28, per ID recommendation. Vanco stopped 01/02. PICC line removed but unable to be replaced. Central line ordered. Surgery to see about central line and this may be placed once renal function improves (4) Osteomyelitis: Code(s): M86.9 - Osteomyelitis, unspecified Status: Acute Assessment and Plan: Concern for osteomyelitis based on the fact that physical exam shows sacral ulcer is palpable to bone Was on vancomycin and Zosyn as ordered by Infectious Disease Service Bone Cx 12/23 growing Pediococcus and Simran albicans Consulted surgery and he underwent debridement 12/23; underwent diverting colostomy to prevent decub ulcer inoculation 12/30, abdominal surgical site healing well and colostomy working well but appears mildly dusky today with blood in bag - GS aware. Pt seen by wound team. Patient has wound vac that is being changed periodically. Unable to get repeat CT. Currently on Primaxin now and ID is aware and agreed. As above. Continue wound changes at bedside. Plan for 4 weeks of IV abx (Day 18). (5) Gross hematuria: Code(s): R31.0 - Gross hematuria Status: Acute Assessment and Plan: Has undergone irrigation of [place]bar[place] with Urology. Pt seen by urology. Continue residential catheter as pt has bilateral LE amputations and decub ulcer. Catheter change monthly recommended. Okay to resume anticoagulation when able. (6) Diabetes: Code(s): E11.9 - Type 2 diabetes mellitus without complications Status: Acute Assessment and Plan: A1c 8.6 in October. The patient's blood glucose was reviewed on 01/09 Glucose more elevated now Continue Accuchecks with sliding scale protocol. Hypoglycemia protocol available as needed. Will advance Lantus. (7) Functional quadriplegia: Code(s): R53.2 - Functional quadriplegia Status: Acute Assessment and Plan: Patient is status post bilateral lower extremity amputation. 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 Patient needs full care. 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 Patient is currently on vancomycin p.o. b.i.d. through 01/18/2021. No diarrhea (9) Sacral decubitus ulcer: Code(s): L89.159 - Pressure ulcer of sacral region
--- NOTE | 2021-01-10 12:32 | P.PNNP_ITS ---
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 - I worry about using steroids given his significant infectious disease issues... - creatinine appears to have peaked/plateaued at 3.5mg/dl -- maybe this is just ATN that is just slow to recover(?)... * follow repeat labs and UOP as well trend for now (2) Sacral decubitus ulcer: Code(s): L89.159 - Pressure ulcer of sacral region, unspecified stage Status: Acute Assessment and Plan: * complicated by osteomyelitis * s/p diverting colostomy to allow for better healing * local wound care and wound vac (3) Fungemia: Code(s): B49 - Unspecified mycosis Status: Acute Assessment and Plan: * as noted by blood/bone cultures * Simran glabrata and coagulase negative staph growth in blood on 12/20; repeat blood cultures 12/22 negative * completed micafungin course (completed on 12/28/20) per ID recommendations (4) Osteomyelitis: Code(s): M86.9 - Osteomyelitis, unspecified Status: Acute Assessment and Plan: * bone culture (12/23/20) growing Pediococcus and Simran albicans * was on vancomycin and zosyn but currently on primaxin * continue current therapy (5) Gross hematuria: Code(s): R31.0 - Gross hematuria Status: Acute Assessment and Plan: * Urology recommendations noted * continue shaw catheter given immobility and sacral wound (6) Diabetes: Code(s): E11.9 - Type 2 diabetes mellitus without complications Status: Chronic Assessment and Plan: * follow accuchecks * on SSI and Lantus Will continue to follow. Subjective Date/time seen: 01/10/21 12:32 Overall, seems to be relatively stable if not improving; no apparent distress at the time of my visit; no issues/events overnight or earlier this AM; continues to make good urine output in the last few days with slow improvement in creatinine. Exam Narrative: General: WD/WN male in NAD Heart: normal S1 and S2; no rub Lungs: clear to auscultation Abdomen: soft, nontender, nondistended, positive bowel sounds; colostomy noted Extremities: no cyanosis or clubbing; trace edema - s/p left AKA and right BKA Skin: warm and dry Objective Data Vital Signs Vital Signs: Vital Signs Temp Pulse Resp BP Pulse Ox 01/10/21 12:00 89 01/10/21 08:00 81 01/10/21 04:56 36.6 C 81 18 146/67 H 97 01/10/21 04:00 81 01/10/21 00:00 75 01/09/21 21:37 36.5 C 75 18 143/63 H 97 01/09/21 20:00 59 L Intake/Output Intake/Output: Intake & Output 01/07/21 01/08/21 01/09/21 01/10/21
--- NOTE | 2021-01-10 12:32 | PM.PNNEP ---
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 - I worry about using steroids given his significant infectious disease issues... - creatinine appears to have peaked/plateaued at 3.5mg/dl -- maybe this is just ATN that is just slow to recover(?)... follow repeat labs and UOP as well trend for now (2) Sacral decubitus ulcer: Code(s): L89.159 - Pressure ulcer of sacral region, unspecified stage Status: Acute Assessment and Plan: complicated by osteomyelitis s/p diverting colostomy to allow for better healing local wound care and wound vac (3) Fungemia: Code(s): B49 - Unspecified mycosis Status: Acute Assessment and Plan: as noted by blood/bone cultures Simran glabrata and coagulase negative staph growth in blood on 12/20; repeat blood cultures 12/22 negative completed micafungin course (completed on 12/28/20) per ID recommendations (4) Osteomyelitis: Code(s): M86.9 - Osteomyelitis, unspecified Status: Acute Assessment and Plan: bone culture (12/23/20) growing Pediococcus and Simran albicans was on vancomycin and zosyn but currently on primaxin continue current therapy (5) Gross hematuria: Code(s): R31.0 - Gross hematuria Status: Acute Assessment and Plan: Urology recommendations noted continue shaw catheter given immobility and sacral wound (6) Diabetes: Code(s): E11.9 - Type 2 diabetes mellitus without complications Status: Chronic Assessment and Plan: follow accuchecks on SSI and Lantus Will continue to follow. Subjective Date/time seen: 01/10/21 12:32 Overall, seems to be relatively stable if not improving; no apparent distress at the time of my visit; no issues/events overnight or earlier this AM; continues to make good urine output in the last few days with slow improvement in creatinine. Exam Narrative: General: WD/WN male in NAD Heart: normal S1 and S2; no rub Lungs: clear to auscultation Abdomen: soft, nontender, nondistended, positive bowel sounds; colostomy noted Extremities: no cyanosis or clubbing; trace edema - s/p left AKA and right BKA Skin: warm and dry Objective Data Vital Signs Vital Signs: Vital Signs Temp Pulse Resp BP Pulse Ox 01/10/21 12:00 89 01/10/21 08:00 81 01/10/21 04:56 36.6 C 81 18 146/67 H 97 01/10/21 04:00 81 01/10/21 00:00 75 01/09/21 21:37 36.5 C 75 18 143/63 H 97 01/09/21 20:00 59 L Intake/Output Intake/Output: Intake & Output 01/07/21 01/08/21 01/09/21 01/10/21 23:59 23:59 23:59 23:59 Intake Total 1760 1850 2100 1660 Output Total 1850 2150 2225 1950 Balance -90 -300 -125 -290 Meds/Results Medications: Active Medications Generic Name Dose Route Start Last Admin Trade Name Freq PRN Reason Stop Dose Admin Acetaminophen 650 mg 12/30/20 15:33 Acetaminophen 325 Mg Tablet PO Q6H PRN Mild Pain (1-3) or Fever Hydrocodone Bitart/Acetaminophen 1 tab 12/30/20 15:33 01/07/21 15:00 Hydrocodone/Acetaminophen (*Crx) 5-325 Mg Tablet PO 1 tab Q4H PRN Administration Pain Rated 4-6 Hydrocodone Bitart/Acetaminophen 1 tab 12/30/20 15:33
[2021-01-10 12:40] LABS: Glucose Point of Care 203 mg/dl (65-105)
[2021-01-10] MEDS: HYDROcodone/acetaminophen (*CRX) 10-325 MG TABLET 1 TAB PO ×2 (15:10→21:50)
[2021-01-10 17:47] LABS: Glucose Point of Care 223 mg/dl (65-105)
[2021-01-10] MEDS: INSULIN GLARGINE (*BKC) 100 UNITS/ML 28 UNITS SUB-Q (21:19)
[2021-01-10 22:06] LABS: Glucose Point of Care 250 mg/dl (65-105)
[2021-01-11] VITALS (8 sets, daily range): BP systolic 138–145; BP diastolic 38–55; PULSE 71–86; RESP 16–28; TEMP 35.3–36.6; O2SAT 96–98
[2021-01-11] MEDS: HEPARIN SODIUM 5,000 UNITS/ML VIAL 5000 UNITS SUB-Q ×3 (05:26→21:22)
[2021-01-11] MEDS: TOLNAFTATE 1% POWDER 45 GM BTL 1 APPLIC TOPICAL ×3 (05:26→21:23)
[2021-01-11 06:36] LABS: Albumin Level 2.2 g/dL (3.5-5.1); Anion Gap 6 mmol/L (8-16); Blood Urea Nitrogen 38 mg/dL (9-20); Calcium 7.7 mg/dL (8.4-10.2); Carbon Dioxide 22 mmol/L (22-30); Chloride 106 mmol/L (98-107); Estimated CRCL calculation 36 ml/min; Estimated Glomerular Filt Rate 22; Glucose 244 mg/dL (65-110); Magnesium 1.8 mg/dL (1.6-2.3); Phosphorus 4.6 mg/dL (2.5-4.5); Sodium 134 mmol/L (137-145)
[2021-01-11 08:12] LABS: Glucose Point of Care 231 mg/dl (65-105)
[2021-01-11] MEDS: SOD HYPOCHLORITE 1/4 STRENGTH 473 ML 1 APPLIC TOPICAL (08:14)
[2021-01-11] MEDS: PANTOPRAZOLE 40 MG TABLET PO ×2 (08:14→21:22)
[2021-01-11] MEDS: VANCOMYCIN ORAL 125 MG/2.5 ML SYRUP PO ×2 (08:14→21:22)
[2021-01-11] MEDS: INSULIN ASPART (*BKC) 100 UNITS/ML SUB-Q ×3 (08:15→17:53)
[2021-01-11] MEDS: HYDROcodone/acetaminophen (*CRX) 10-325 MG TABLET 1 TAB PO ×2 (08:15→23:13)
[2021-01-11 12:08] LABS: Glucose Point of Care 254 mg/dl (65-105)
--- NOTE | 2021-01-11 12:23 | P.PNNP_ITS ---
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 - I worry about using steroids given his significant infectious disease issues... - creatinine appears to have peaked/plateaued at 3.5mg/dl -- maybe this is just ATN that is just slow to recover(?)...but creatinine no better tod ay - will discuss with Infectious Disease if okay to steroid use... * follow repeat labs and UOP as well trend for now (2) Sacral decubitus ulcer: Code(s): L89.159 - Pressure ulcer of sacral region, unspecified stage Status: Acute Assessment and Plan: * complicated by osteomyelitis * s/p diverting colostomy to allow for better healing * local wound care and wound vac (3) Fungemia: Code(s): B49 - Unspecified mycosis Status: Acute Assessment and Plan: * as noted by blood/bone cultures * Simran glabrata and coagulase negative staph growth in blood on 12/20; repeat blood cultures 12/22 negative * completed micafungin course (completed on 12/28/20) per ID recommendations (4) Osteomyelitis: Code(s): M86.9 - Osteomyelitis, unspecified Status: Acute Assessment and Plan: * bone culture (12/23/20) growing Pediococcus and Simran albicans * was on vancomycin and zosyn but currently on primaxin * continue current therapy (5) Gross hematuria: Code(s): R31.0 - Gross hematuria Status: Acute Assessment and Plan: * Urology recommendations noted * continue shaw catheter given immobility and sacral wound (6) Diabetes: Code(s): E11.9 - Type 2 diabetes mellitus without complications Status: Chronic Assessment and Plan: * follow accuchecks * on SSI and Lantus Will continue to follow. Subjective Date/time seen: 01/11/21 12:23 Remain reasonably well at the time of my visit; eating and drinking well; good urine output in the last 24 - 48 hours; no change in creatinine in the last 24 hours; no other events overnight or earlier today; pain control remains satisf actory. Exam Narrative: General: WD/WN male in NAD Heart: normal S1 and S2; no rub Lungs: clear to auscultation Abdomen: soft, nontender, nondistended, positive bowel sounds; colostomy noted Extremities: no cyanosis or clubbing; trace edema - s/p left AKA and right BKA Skin: warm and dry Objective Data Vital Signs Vital Signs: Vital Signs Temp Pulse Resp BP Pulse Ox 01/11/21 12:00 86 01/11/21 08:00 79 01/11/21 05:35 36.6 C 81 16 143/40 H 98 01/11/21 04:00 81 01/11/21 00:00 78 01/10/21 21:39 36.6 C 77 20 128/55 L 98 01/10/21 20:00 75 01/10/21 16:00 35 C L
--- NOTE | 2021-01-11 12:23 | PM.PNNEP ---
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 - I worry about using steroids given his significant infectious disease issues... - creatinine appears to have peaked/plateaued at 3.5mg/dl -- maybe this is just ATN that is just slow to recover(?)...but creatinine no better today - will discuss with Infectious Disease if okay to steroid use... follow repeat labs and UOP as well trend for now (2) Sacral decubitus ulcer: Code(s): L89.159 - Pressure ulcer of sacral region, unspecified stage Status: Acute Assessment and Plan: complicated by osteomyelitis s/p diverting colostomy to allow for better healing local wound care and wound vac (3) Fungemia: Code(s): B49 - Unspecified mycosis Status: Acute Assessment and Plan: as noted by blood/bone cultures Simran glabrata and coagulase negative staph growth in blood on 12/20; repeat blood cultures 12/22 negative completed micafungin course (completed on 12/28/20) per ID recommendations (4) Osteomyelitis: Code(s): M86.9 - Osteomyelitis, unspecified Status: Acute Assessment and Plan: bone culture (12/23/20) growing Pediococcus and Simran albicans was on vancomycin and zosyn but currently on primaxin continue current therapy (5) Gross hematuria: Code(s): R31.0 - Gross hematuria Status: Acute Assessment and Plan: Urology recommendations noted continue shaw catheter given immobility and sacral wound (6) Diabetes: Code(s): E11.9 - Type 2 diabetes mellitus without complications Status: Chronic Assessment and Plan: follow accuchecks on SSI and Lantus Will continue to follow. Subjective Date/time seen: 01/11/21 12:23 Remain reasonably well at the time of my visit; eating and drinking well; good urine output in the last 24 - 48 hours; no change in creatinine in the last 24 hours; no other events overnight or earlier today; pain control remains satisfactory. Exam Narrative: General: WD/WN male in NAD Heart: normal S1 and S2; no rub Lungs: clear to auscultation Abdomen: soft, nontender, nondistended, positive bowel sounds; colostomy noted Extremities: no cyanosis or clubbing; trace edema - s/p left AKA and right BKA Skin: warm and dry Objective Data Vital Signs Vital Signs: Vital Signs Temp Pulse Resp BP Pulse Ox 01/11/21 12:00 86 01/11/21 08:00 79 01/11/21 05:35 36.6 C 81 16 143/40 H 98 01/11/21 04:00 81 01/11/21 00:00 78 01/10/21 21:39 36.6 C 77 20 128/55 L 98 01/10/21 20:00 75 01/10/21 16:00 35 C L 68 120/44 L 100 Intake/Output Intake/Output: Intake & Output 01/08/21 01/09/21 01/10/21 01/11/21 23:59 23:59 23:59 23:59 Intake Total 1850 2100 1660 1400 Output Total 2150 2225 1950 1720 Balance -300 -125 -290 -320 Meds/Results Medications: Active Medications Generic Name Dose Route Start Last Admin Trade Name José Miguel PRN Reason Stop Dose Admin Acetaminophen 650 mg 12/30/20 15:33 Acetaminophen 325 Mg Tablet PO Q6H PRN Mild Pain (1-3) or Fever Hydrocodone Bitart/Acetaminophen 1 tab 12/30/20 15:33 01/07/21 15:00 Hydrocodone/Acetam
[2021-01-11 17:23] LABS: Glucose Point of Care 201 mg/dl (65-105)
[2021-01-11] MEDS: INSULIN GLARGINE (*BKC) 100 UNITS/ML 28 UNITS SUB-Q (21:26)
[2021-01-11 22:02] LABS: Glucose Point of Care 243 mg/dl (65-105)
[2021-01-12] VITALS (9 sets, daily range): BP systolic 132–149; BP diastolic 55–68; PULSE 73–92; RESP 16–18; TEMP 36.5–36.6; O2SAT 94–97
[2021-01-12 06:02] LABS: Hematocrit 23.8 % (42.0-52.0); Mean Corpuscular HGB Conc 29.4 g/dl (32-36); Mean Corpuscular Hemoglobin 26.6 pg (26-34); Mean Corpuscular Volume 90.5 fl (80-100); Mean Platelet Volume 8.1 fl (7.4-10.4); Platelet Count Result 186 k/mm3 (150-375); Red Blood Count 2.63 M/mm3 (4.6-6.20); White Blood Count 10.5 K/mm3 (4.5-10.0)
[2021-01-12] MEDS: TOLNAFTATE 1% POWDER 45 GM BTL 1 APPLIC TOPICAL ×3 (06:06→21:27)
[2021-01-12] MEDS: HEPARIN SODIUM 5,000 UNITS/ML VIAL 5000 UNITS SUB-Q ×3 (06:06→21:27)
[2021-01-12 06:15] LABS: Albumin Level 2.3 g/dL (3.5-5.1); Alkaline Phosphatase 69 U/L (38-126); Anion Gap 6 mmol/L (8-16); Aspartate Amino Transferase 9 U/L (17-59); Bilirubin,Total 0.2 mg/dL (0.2-1.3); Blood Urea Nitrogen 39 mg/dL (9-20); Carbon Dioxide 23 mmol/L (22-30); Chloride 105 mmol/L (98-107); Estimated CRCL calculation 37 ml/min; Estimated Glomerular Filt Rate 22; Glucose 239 mg/dL (65-110); Magnesium 1.7 mg/dL (1.6-2.3); Phosphorus 4.4 mg/dL (2.5-4.5); Potassium 4.1 mmol/L (3.4-5.0); Sodium 134 mmol/L (137-145)
[2021-01-12] MEDS: INSULIN ASPART (*BKC) 100 UNITS/ML SUB-Q ×3 (08:10→18:08)
[2021-01-12] MEDS: SOD HYPOCHLORITE 1/4 STRENGTH 473 ML 1 APPLIC TOPICAL ×3 (08:10→21:27)
[2021-01-12] MEDS: PANTOPRAZOLE 40 MG TABLET PO ×2 (08:11→21:27)
[2021-01-12 08:20] LABS: Glucose Point of Care 205 mg/dl (65-105)
--- NOTE | 2021-01-12 08:23 | P.PNNP_ITS ---
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 * renal u/s without hydro or other anatomical issues (done on 01/02/21 and 01/07/21) * CPK okay * HOWEVER, rare urine eosinophils noted (but no peripheral eosinophilia or rash) -- steroids might be risky. * creatinine is trending downwards. (2) Sacral decubitus ulcer: Code(s): L89.159 - Pressure ulcer of sacral region, unspecified stage Status: Acute Assessment and Plan: * complicated by osteomyelitis * s/p diverting colostomy to allow for better healing * local wound care and wound vac (3) Fungemia: Code(s): B49 - Unspecified mycosis Status: Acute Assessment and Plan: * as noted by blood/bone cultures * Simran glabrata and coagulase negative staph growth in blood on 12/20; repeat blood cultures 12/22 negative * completed micafungin course (completed on 12/28/20) per ID recommendations (4) Osteomyelitis: Code(s): M86.9 - Osteomyelitis, unspecified Status: Acute Assessment and Plan: * bone culture (12/23/20) growing Pediococcus and Simran albicans * was on vancomycin and zosyn but currently on primaxin * continue current therapy (5) Gross hematuria: Code(s): R31.0 - Gross hematuria Status: Acute Assessment and Plan: * Urology recommendations noted * continue shaw catheter given immobility and sacral wound * Urine is clear and yellow now. (6) Diabetes: Code(s): E11.9 - Type 2 diabetes mellitus without complications Status: Chronic Assessment and Plan: On Accu-Cheks and sliding-scale insulin. Subjective Date/time seen: 01/12/21 08:23 Interval history: Patient is feeling okay right now. He is eating okay. He has some belly discomfort. No shortness of breath. Exam Narrative: General: WD/WN male in NAD Heart: normal S1 and S2; no rub Lungs: clear to auscultation Abdomen: soft, nontender, nondistended, positive bowel sounds; colostomy noted . Wound well apposed. Extremities: no cyanosis or clubbing; trace edema - s/p left AKA and right BKA Skin: No rash Objective Data Vital Signs Vital Signs: Vital Signs - 24 hr 01/11/21 12:00 01/11/21 16:00 01/11/21 19:38 Temperature 35.3 C L 36.6 C Pulse Rate 86 86 74 Respiratory Rate 28 H 17 Blood Pressure 138/38 L 145/55 H Pulse Oximetry 97 96 01/11/21 20:00 01/12/21 00:00 01/12/21 03:17 Temperature 36.6 C Pulse Rate 73 79 92 Respiratory Rate 17 Blood Pressure 137/68 Pulse Oximetry 96 01/12/21 04:00 01/12/21 08:00 Temperature Pulse Rate 86 74 Respiratory Rate Blood Pressure Pulse Oximetry Intake/Output Intake/Output: Intake & Output
--- NOTE | 2021-01-12 08:23 | PM.PNNEP ---
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 renal u/s without hydro or other anatomical issues (done on 01/02/21 and 01/07/21) CPK okay HOWEVER, rare urine eosinophils noted (but no peripheral eosinophilia or rash) -- steroids might be risky. creatinine is trending downwards. (2) Sacral decubitus ulcer: Code(s): L89.159 - Pressure ulcer of sacral region, unspecified stage Status: Acute Assessment and Plan: complicated by osteomyelitis s/p diverting colostomy to allow for better healing local wound care and wound vac (3) Fungemia: Code(s): B49 - Unspecified mycosis Status: Acute Assessment and Plan: as noted by blood/bone cultures Simran glabrata and coagulase negative staph growth in blood on 12/20; repeat blood cultures 12/22 negative completed micafungin course (completed on 12/28/20) per ID recommendations (4) Osteomyelitis: Code(s): M86.9 - Osteomyelitis, unspecified Status: Acute Assessment and Plan: bone culture (12/23/20) growing Pediococcus and Simran albicans was on vancomycin and zosyn but currently on primaxin continue current therapy (5) Gross hematuria: Code(s): R31.0 - Gross hematuria Status: Acute Assessment and Plan: Urology recommendations noted continue shaw catheter given immobility and sacral wound Urine is clear and yellow now. (6) Diabetes: Code(s): E11.9 - Type 2 diabetes mellitus without complications Status: Chronic Assessment and Plan: On Accu-Cheks and sliding-scale insulin. Subjective Date/time seen: 01/12/21 08:23 Interval history: Patient is feeling okay right now. He is eating okay. He has some belly discomfort. No shortness of breath. Exam Narrative: General: WD/WN male in NAD Heart: normal S1 and S2; no rub Lungs: clear to auscultation Abdomen: soft, nontender, nondistended, positive bowel sounds; colostomy noted . Wound well apposed. Extremities: no cyanosis or clubbing; trace edema - s/p left AKA and right BKA Skin: No rash Objective Data Vital Signs Vital Signs: Vital Signs - 24 hr 01/11/21 12:00 01/11/21 16:00 01/11/21 19:38 Temperature 35.3 C L 36.6 C Pulse Rate 86 86 74 Respiratory Rate 28 H 17 Blood Pressure 138/38 L 145/55 H Pulse Oximetry 97 96 01/11/21 20:00 01/12/21 00:00 01/12/21 03:17 Temperature 36.6 C Pulse Rate 73 79 92 Respiratory Rate 17 Blood Pressure 137/68 Pulse Oximetry 96 01/12/21 04:00 01/12/21 08:00 Temperature Pulse Rate 86 74 Respiratory Rate Blood Pressure Pulse Oximetry Intake/Output Intake/Output: Intake & Output 01/09/21 01/10/21 01/11/21 01/12/21 23:59 23:59 23:59 23:59 Intake Total 2100 1660 1840 440 Output Total 2225 1950 1720 1310 Balance -125 -290 120 -870 Meds/Results Medications: Active Medications Generic Name Dose Route Start Last Admin Trade Name Freq PRN Reason Stop Dose Admin Acetaminophen 650 mg 12/30/20 15:33 Acetaminophen 325 Mg Tablet PO Q6H PRN Mild Pain (1-3) or Fever Hydrocodone Bitart/Acetaminophen 1 tab 12/30/20 15:33 01/07/21 15:00 Hydrocodone/Acetaminophen (*Crx) 5-325 Mg Tablet PO 1 tab Q4H PRN Administration Pain Rated 4-6 Hydrocodone Bitart/Acetaminophen 1 tab 12/30/20 15:33 01/11/21 23:13 Hydrocodone/Acetaminophen (*Crx) 10-325 Mg Tablet PO 1 tab
[2021-01-12] MEDS: ONDANSETRON INJ 4 MG/2 ML VIAL IV PUSH (10:09)
--- NOTE | 2021-01-12 11:42 | PM.PNGS ---
Progress Note: A&P Assessment and Plan (1) Sacral decubitus ulcer: Code(s): L89.159 - Pressure ulcer of sacral region, unspecified stage Status: Acute Assessment and Plan: Wound VAC having some issues with leaking and causing maceration of the surrounding skin. There was also some yellow necrotic slough in the wound bed today during the dressing change. We will stop the wound VAC, and switch to dressing changes with Dakin's solution BID. S/p diverting colostomy on 12/30, functioning well. (2) Osteomyelitis: Code(s): M86.9 - Osteomyelitis, unspecified Status: Acute Assessment and Plan: Continue IV antibiotics per ID recommendations. Dr. Houston aware of potential need for IV access if renal function continues to improve. (3) Functional quadriplegia: Code(s): R53.2 - Functional quadriplegia Status: Acute (4) RADHA (acute kidney injury): Code(s): N17.9 - Acute kidney failure, unspecified Status: Acute Assessment and Plan: Improving. Cr down to 2.9 today. Additional Plan I have discussed the plan of care with Dr. Houston. Subjective Subjective Date/Time Seen: 01/12/21 09:42 Patient reports: no new complaints Interval history: Patient seen and examined today with the wound care nurses. Ostomy functioning well. Nurse plans to do an ostomy bag change today. We were proceeding with a wound VAC change. Per the wound care nurses, this has had some issues with leaking when changed in the past week. Exam GI: Inspection: incision (clean, dry, and intact. marisol intact. ) and obesity GI Palp: Yes Soft to palpation and No Tenderness to palpation present (GI) Other: Ostomy slightly edematous and dark red at 9-12 o'clock area of stoma, but functioning well and viable Urinary Catheter: Urinary Catheter: urine cloudy Skin: Other: Sacral wound vac removed. Some drainage leaking from wound VAC with surrounding skin appearing moist with superficial maceration extending to posterior upper thighs and groin. Wound with about 50% healthy granulation tissue forming, and the deeper aspect of the wound at the sacrum with yellow slough in the wound bed. Very mild odor. Extrem: General: amputation noted Below the knee: right (Right BKA dressing clean, dry, intact) and Above the knee: left Objective Data Vital Signs Vital Signs: Vital Signs - 24 hr 01/11/21 12:00 01/11/21 16:00 01/11/21 19:38 Temperature 95.6 F L 97.8 F Pulse Rate 86 86 74 Respiratory Rate 28 H 17 Blood Pressure 138/38 L 145/55 H Pulse Oximetry 97 96 01/11/21 20:00 01/12/21 00:00 01/12/21 03:17 Temperature 97.8 F Pulse Rate 73 79 92 Respiratory Rate 17 Blood Pressure 137/68 Pulse Oximetry 96 01/12/21 04:00 01/12/21 08:00 Temperature Pulse Rate 86 74 Respiratory Rate Blood Pressure Pulse Oximetry Intake/Output Intake/Output: Intake & Output 01/09/21 01/10/21 01/11/21 01/12/21 23:59 23:59 23:59 23:59 Intake Total 2100 1660 1840 1040 Output Total 2225 1950 1720 1310 Balance -125 -290 120 -270 Meds/Results Medications: Active Medications Generic Name Dose Route Start Last Admin Trade Name Freq PRN Reason Stop Dose Admin Acetaminophen 650 mg 12/30/20 15:33 Acetaminophen 325 Mg Tablet PO Q6H PRN Mild Pain (1-3) or Fever Hydrocodone Bitart/Acetaminophen 1 tab 12/30/20 15:33 01/07/21 15:00 Hydrocodone/Acetaminophen (*Crx) 5-325 Mg Tablet PO 1 tab Q4H PRN Administration Pain Rated 4-6 Hydrocodone Bitart/Acetaminophen 1 tab 12/30/20 15:33 01/11/21 23:13 Hydrocodone/Acetaminophen (*Crx) 10-325 Mg Tablet PO 1 tab Q6H PRN Administration Pain Rated 7-10 Carvedilol 3.125 mg 01/02/21 21:00 01/06/21 11:11 Carvedilol 3.125 Mg Tablet PO 3.125 mg Q12HR FAROOQ Administration Dextrose 12.5 gm 12/20/20 05:22 Dextrose 50% 25 Gm/50 Ml Syringe IV PUSH PRN PRN Hypoglycemia Protocol Ergocalcife
[2021-01-12 12:31] LABS: Glucose Point of Care 243 mg/dl (65-105)
[2021-01-12] MEDS: VANCOMYCIN ORAL 125 MG/2.5 ML SYRUP PO ×2 (12:33→21:27)
--- NOTE | 2021-01-12 12:56 | PM.IMPN ---
Progress Note: A&P Assessment and Plan (1) RADHA (acute kidney injury): Code(s): N17.9 - Acute kidney failure, unspecified Status: Acute Assessment and Plan: Differential is wide: Prerenal versus Toxic ATN vs AIN due to multiple implicated medications, infection associated GN, etc. Admission creatinine 0.8. Noted rising Cr. Renal ultrasound 01/02 without hydronephrosis or structural abnormalities. CK<20. Urine eos rare. Rosa 69 with FENa 4.15% to suggest AIN. He was switched from Zosyn to imipenem. Nephrology consulted and appreciate their input. Surgery note reviewed. CT A/P cancelled because patient too big for scanner. Cr better at 2.9. Follow. (2) Chronic atrial fibrillation with RVR: Code(s): I48.20 - Chronic atrial fibrillation, unspecified Status: Acute Assessment and Plan: Patient with bradycardia but improved off the Digoxin and lower dose Coreg. Then he was having prolonged pauses up to 4.5sec so Coreg stopped (last dose was 01/06 at 11:11am). Could be from sleep apnea but apnea link showing AHI 8 and RI 8.3 but he states he was awake for most of it. Appreciate cardiology input. Resume Eliquis when able. Continue tele. 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 Repeat blood cultures 12/22 are negative Completed micafungin through December 28, per ID recommendation. Vanco stopped 01/02. PICC line removed but unable to be replaced. Central line ordered. Surgery to see about central line and this may be placed once renal function improves (4) Osteomyelitis: Code(s): M86.9 - Osteomyelitis, unspecified Status: Acute Assessment and Plan: Concern for osteomyelitis based on the fact that physical exam shows sacral ulcer is palpable to bone Was on vancomycin and Zosyn as ordered by Infectious Disease Service Consulted surgery and he underwent debridement of sacral wound and right amputation ulcer 12/23. Bone Cx 12/23 growing Pediococcus and Simran albicans. He then underwent open diverting end colostomy to prevent decub ulcer inoculation 12/30. Abdominal surgical site healing well and colostomy working well but appears pale today. Unable to get repeat CT A/P due to his size. Pt seen by wound team. Patient has wound vac that is being changed periodically. Currently on Primaxin now and ID is aware and agreed. As above. Continue wound changes at bedside. Plan for 4 weeks of IV abx (Day 21). (5) Gross hematuria: Code(s): R31.0 - Gross hematuria Status: Acute Assessment and Plan: Has undergone irrigation of Abarca with Urology. Pt seen by urology. 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 Catheter change monthly recommended. Okay to resume anticoagulation when able. (6) Diabetes: Code(s): E11.9 - Type 2 diabetes mellitus without complications Status: Chronic Assessment and Plan: A1c 8.6 in October. The patient's blood glucose was reviewed on 01/12 Glucose more elevated now. Continue Accuchecks with sliding scale protocol. Hypoglycemia protocol available as needed. Will advance Lantus. (7) Functional quadriplegia: Code(s): R53.2 - Functional quadriplegia Status: Acute Assessment and Plan: Patient is status post bilateral lower extremity amputation. 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 Patient needs full care. 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 Patient is currently on vancomycin p.o. b.i.d. through 01/18/2021. Stool volume noted (9) Sacral decubitus ulcer: Code(s): L89.159 - Pressure ulcer of sacral reg
[2021-01-12 13:25] LABS: Alanine Aminotransferase < 4 U/L (4-50)
[2021-01-12 13:46] LABS: Chloride Rand Ur 53 mmol/L (32-290); Chloride/Creatinine Rand Ur 177 (23-275); Creatinine Random Urine 30 mg/dL (20-320)
[2021-01-12] MEDS: HYDROcodone/acetaminophen (*CRX) 10-325 MG TABLET 1 TAB PO ×2 (15:19→21:35)
[2021-01-12 18:09] LABS: Glucose Point of Care 257 mg/dl (65-105)
[2021-01-12] MEDS: INSULIN GLARGINE (*BKC) 100 UNITS/ML 32 UNITS SUB-Q (21:26)
[2021-01-12 22:26] LABS: Glucose Point of Care 239 mg/dl (65-105)
[2021-01-13] VITALS (9 sets, daily range): BP systolic 124–133; BP diastolic 52–68; PULSE 74–86; RESP 16–18; TEMP 36.5–36.7; O2SAT 94–98
[2021-01-13] MEDS: HEPARIN SODIUM 5,000 UNITS/ML VIAL 5000 UNITS SUB-Q ×3 (05:39→21:00)
[2021-01-13] MEDS: TOLNAFTATE 1% POWDER 45 GM BTL 1 APPLIC TOPICAL ×3 (05:39→21:00)
[2021-01-13] MEDS: ONDANSETRON INJ 4 MG/2 ML VIAL IV PUSH (05:40)
[2021-01-13] MEDS: HYDROcodone/acetaminophen (*CRX) 10-325 MG TABLET 1 TAB PO ×2 (05:48→20:53)
[2021-01-13 06:13] LABS: Hematocrit 24.2 % (42.0-52.0); Hemoglobin 7.2 g/dL (14.0-18.0); Mean Corpuscular HGB Conc 29.8 g/dl (32-36); Mean Corpuscular Hemoglobin 27.3 pg (26-34); Mean Corpuscular Volume 91.7 fl (80-100); Mean Platelet Volume 8.6 fl (7.4-10.4); Platelet Count Result 203 k/mm3 (150-375); Red Blood Count 2.64 M/mm3 (4.6-6.20); Red Cell Distribution Width 19.9 % (11.5-14.5); White Blood Count 9.9 K/mm3 (4.5-10.0)
[2021-01-13 06:27] LABS: Magnesium 1.6 mg/dL (1.6-2.3)
[2021-01-13 06:37] LABS: Albumin Level 2.4 g/dL (3.5-5.1); Anion Gap 6 mmol/L (8-16); Blood Urea Nitrogen 38 mg/dL (9-20); Calcium 8.2 mg/dL (8.4-10.2); Carbon Dioxide 25 mmol/L (22-30); Chloride 104 mmol/L (98-107); Estimated CRCL calculation 39 ml/min; Estimated Glomerular Filt Rate 23; Glucose 188 mg/dL (65-110); Phosphorus 4.4 mg/dL (2.5-4.5); Potassium 4.2 mmol/L (3.4-5.0); Sodium 135 mmol/L (137-145)
--- NOTE | 2021-01-13 08:13 | P.PNIM_ITS ---
Progress Note: A&P Assessment and Plan (1) RADHA (acute kidney injury): Code(s): N17.9 - Acute kidney failure, unspecified Status: Acute Assessment and Plan: Differential is wide: Prerenal versus Toxic ATN vs AIN due to multiple implicated medications, infection associated GN, etc. Admission creatinine 0.8. Noted rising Cr. Renal ultrasound 01/02 without hydronephrosis or structural abnormalities. CK<20. Urine eos rare. Rosa 69 with FENa 4.15% to suggest AIN. He was switched from Zosyn to imipenem. Nephrology consulted and appreciate their input. Surgery note reviewed. CT A/P cancelled because patient too big for scanner. Cr better at 2.9. Follow. (2) Chronic atrial fibrillation with RVR: Code(s): I48.20 - Chronic atrial fibrillation, unspecified Status: Acute Assessment and Plan: Patient with bradycardia but improved off the Digoxin and lower dose Coreg. Then he was having prolonged pauses up to 4.5sec so Coreg stopped (last dose was 01/06 at 11:11am). Could be from sleep apnea but apnea link showing AHI 8 and RI 8.3 but he states he was awake for most of it. Appreciate cardiology input. Resume Eliquis when able. Continue tele. 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 Repeat blood cultures 12/22 are negative Completed micafungin through December 28, per ID recommendation. Vanco stopped 01/02. PICC line removed but unable to be replaced. Central line ordered. Surgery to see about central line and this may be placed once renal function improves (4) Osteomyelitis: Code(s): M86.9 - Osteomyelitis, unspecified Status: Acute Assessment and Plan: Concern for osteomyelitis based on the fact that physical exam shows sacral ulcer is palpable to bone Was on vancomycin and Zosyn as ordered by Infectious Disease Service Consulted surgery and he underwent debridement of sacral wound and right amputation ulcer 12/23. Bone Cx 12/23 growing Pediococcus and Simran albicans. He then underwent open diverting end colostomy to prevent decub ulcer inoculation 12/30. Abdominal surgical site healing well and colostomy working well but appears pale today. Unable to get repeat CT A/P due to his size. Pt seen by wound team. Patient has wound vac that is being changed periodically. Currently on Primaxin now and ID is aware and agreed. As above. Continue wound changes at bedside. Plan for 4 weeks of IV abx (day 22). (5) Gross hematuria: Code(s): R31.0 - Gross hematuria Status: Acute Assessment and Plan: Has undergone irrigation of Abarca with Urology. Pt seen by urology. 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 Catheter change monthly recommended. Okay to resume anticoagulation when able. (6) Diabetes: Code(s): E11.9 - Type 2 diabetes mellitus without complications Status: Chronic Assessment and Plan: A1c 8.6 in October. The patient's blood glucose was reviewed on 01/12 Glucose more elevated now. Continue Accuchecks with sliding scale protocol. Hypoglycemia protocol available as needed. Will advance Lantus. (7) Functional quadriplegia: Code(s): R53.2 - Functional quadriplegia Status: Acute Assessment and Plan: Patient is status post bilateral lower extremity amputation. 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 Patient needs full care. (8) C. difficile colitis:
--- NOTE | 2021-01-13 08:20 | P.PNNP_ITS ---
Progress Note: A&P Assessment and Plan (1) RADHA (acute kidney injury): Code(s): N17.9 - Acute kidney failure, unspecified Status: Acute Assessment and Plan: * etiology not clear * possibly simple ATN from his infection issues He continues on vancomycin and imipenem. Recent cultures are negative. 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 * possible AIN (multiple medications/antibiotics since admission as well) He has no rash. He has rare eosinophils in the urine which is not clinically significant. He has no peripheral eosinophilia. To give him steroids might risk bring infection back. He has had recurrent Simran in his urine. He also would would develop high blood sugars. I think the risks of steroids would be greater than the benefit and AIN is not firmly established. * prerenal azotemia but urine electrolytes argue against this and he is positive with regard to his I/Os at this time and he has some swelling. * renal u/s without hydro or other anatomical issues (done on 01/02/21 and 01/07/21) * CPK okay * HOWEVER, rare urine eosinophils noted (but no peripheral eosinophilia or rash) -- steroids might be risky , ABOVE. * creatinine is trending downwards Although it is very slow. * I was thinking about doing a renal scan to see if there was uptake without excretion but this would be a difficult tested due because of his size and his quadriplegia. So will hold off on this. * He may have some residual chronic kidney disease. It is unclear what his baseline is going to be. * Long discussion with the patient (2) Sacral decubitus ulcer: Code(s): L89.159 - Pressure ulcer of sacral region, unspecified stage Status: Acute Assessment and Plan: * complicated by osteomyelitis * s/p diverting colostomy to allow for better healing * local wound care and wound vac (3) Fungemia: Code(s): B49 - Unspecified mycosis Status: Acute Assessment and Plan: * as noted by blood/bone cultures * Simran glabrata and coagulase negative staph growth in blood on 12/20; repeat blood cultures 12/22 negative * completed micafungin course (completed on 12/28/20) per ID recommendations (4) Osteomyelitis: Code(s): M86.9 - Osteomyelitis, unspecified Status: Acute Assessment and Plan: * bone culture (12/23/20) growing Pediococcus and Simran albicans * was on vancomycin and zosyn but currently on primaxin * continue current therapy (5) Gross hematuria: Code(s): R31.0 - Gross hematuria Status: Acute Assessment and Plan: * Urology recommendations noted * continue shaw catheter given immobility and sacral wound * Urine is clear and yellow now. (6) Diabetes: Code(s): E11.9 - Type 2 diabetes mellitus without complications Status: Chronic Assessment and Plan: On Accu-Cheks and sliding-scale insulin. Subjective Date/time seen: 01/13/21 08:20 Interval history: Patient is feeling okay right now. he had some nausea earlier. He just received Zofran and feels better. No shortness of breath Exam Narrative: General: WD/WN male in NAD Heart: normal S1 and S2; no rub Lungs: clear Abdomen: soft, nontender, nondistended, positive bowel sounds; colostomy noted . Wound well apposed. Extremities: no cyanosis or clubbing; trace edema - s/p left AKA and right BKA Skin: No rash or subQ
--- NOTE | 2021-01-13 08:20 | PM.PNNEP ---
Progress Note: A&P Assessment and Plan (1) RADHA (acute kidney injury): Code(s): N17.9 - Acute kidney failure, unspecified Status: Acute Assessment and Plan: etiology not clear possibly simple ATN from his infection issues He continues on vancomycin and imipenem. Recent cultures are negative. 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 possible AIN (multiple medications/antibiotics since admission as well) He has no rash. He has rare eosinophils in the urine which is not clinically significant. He has no peripheral eosinophilia. To give him steroids might risk bring infection back. He has had recurrent Simran in his urine. He also would would develop high blood sugars. I think the risks of steroids would be greater than the benefit and AIN is not firmly established. prerenal azotemia but urine electrolytes argue against this and he is positive with regard to his I/Os at this time and he has some swelling. renal u/s without hydro or other anatomical issues (done on 01/02/21 and 01/07/21) CPK okay HOWEVER, rare urine eosinophils noted (but no peripheral eosinophilia or rash) -- steroids might be risky , ABOVE. creatinine is trending downwards Although it is very slow. I was thinking about doing a renal scan to see if there was uptake without excretion but this would be a difficult tested due because of his size and his quadriplegia. So will hold off on this. He may have some residual chronic kidney disease. It is unclear what his baseline is going to be. 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 - Unspecified mycosis Status: Acute Assessment and Plan: as noted by blood/bone cultures Simran glabrata and coagulase negative staph growth in blood on 12/20; repeat blood cultures 12/22 negative completed micafungin course (completed on 12/28/20) per ID recommendations (4) Osteomyelitis: Code(s): M86.9 - Osteomyelitis, unspecified Status: Acute Assessment and Plan: bone culture (12/23/20) growing Pediococcus and Simran albicans was on vancomycin and zosyn but currently on primaxin continue current therapy (5) Gross hematuria: Code(s): R31.0 - Gross hematuria Status: Acute Assessment and Plan: Urology recommendations noted continue shaw catheter given immobility and sacral wound Urine is clear and yellow now. (6) Diabetes: Code(s): E11.9 - Type 2 diabetes mellitus without complications Status: Chronic Assessment and Plan: On Accu-Cheks and sliding-scale insulin. Subjective Date/time seen: 01/13/21 08:20 Interval history: Patient is feeling okay right now. he had some nausea earlier. He just received Zofran and feels better. No shortness of breath Exam Narrative: General: WD/WN male in NAD Heart: normal S1 and S2; no rub Lungs: clear Abdomen: soft, nontender, nondistended, positive bowel sounds; colostomy noted . Wound well apposed. Extremities: no cyanosis or clubbing; trace edema - s/p left AKA and right BKA Skin: No rash or subQ nodules Objective Data Vital Signs Vital Signs: Vital Signs - 24 hr 01/12/21 12:00 01/12/21 14:00 01/12/21 16:00 Temperature 36.6 C Pulse Rate 82 77 73 Respiratory Rate 18 Blood Pressure 132/56 L Pulse Oximetry 94 01/12/21 20:00 01/12/21 21:22 01/13/21 00:00 Temperature 36.5 C Pulse Rate 85 85 77 Respiratory Rate 16 Blood Pressure 149/55 H Pulse Oximetry 97 01/13/21 04:00 01/13/21 05:46 Temperature 36.6 C Pulse Ra
[2021-01-13] MEDS: ERGOCALCIFEROL 50,000 UNIT CAPSULE 50000 UNITS FEED TUBE (08:22)
[2021-01-13] MEDS: SOD HYPOCHLORITE 1/4 STRENGTH 473 ML 1 APPLIC TOPICAL ×2 (08:22→20:54)
[2021-01-13] MEDS: PANTOPRAZOLE 40 MG TABLET PO ×2 (08:22→20:53)
[2021-01-13 08:25] LABS: Glucose Point of Care 178 mg/dl (65-105)
[2021-01-13 12:04] LABS: Glucose Point of Care 178 mg/dl (65-105)
[2021-01-13] MEDS: VANCOMYCIN ORAL 125 MG/2.5 ML SYRUP PO ×2 (12:44→20:53)
[2021-01-13] MEDS: INSULIN ASPART (*BKC) 100 UNITS/ML SUB-Q (16:57)
[2021-01-13 17:11] LABS: Glucose Point of Care 233 mg/dl (65-105)
[2021-01-13 20:37] LABS: Glucose Point of Care 250 mg/dl (65-105)
[2021-01-13] MEDS: INSULIN GLARGINE (*BKC) 100 UNITS/ML 32 UNITS SUB-Q (20:53)
[2021-01-14] VITALS (8 sets, daily range): BP systolic 126–137; BP diastolic 35–74; PULSE 78–85; RESP 18–20; TEMP 36.5–36.6; O2SAT 97–99
[2021-01-14] MEDS: ONDANSETRON INJ 4 MG/2 ML VIAL IV PUSH ×2 (00:24→14:26)
[2021-01-14 05:43] LABS: Basophils Absolute Auto 0.1 K/mm3 (0.0-0.1); Basophils Percent Auto 0.6 % (0.2-1.2); Eosinophils Absolute Auto 0.3 K/mm3 (0-0.3); Eosinophils Percent Auto 2.7 % (0-4.4); Hematocrit 24.7 % (42.0-52.0); Hemoglobin 7.3 g/dL (14.0-18.0); Immature Granulocyte Percent A 5.8 % (0-0.5); Lymphocytes Absolute Auto 0.88 K/mm3 (0.9-3.2); Lymphocytes Percent Auto 8.5 % (18.3-44.2); Mean Corpuscular HGB Conc 29.6 g/dl (32-36); Mean Corpuscular Hemoglobin 27.2 pg (26-34); Mean Corpuscular Volume 92.2 fl (80-100); Mean Platelet Volume 8.4 fl (7.4-10.4); Monocytes Absolute Auto 0.9 K/mm3 (0.1-0.6); Monocytes Percent Auto 8.4 % (2.6-8.5); Neutrophils Absolute Auto 7.7 K/mm3 (1.3-6.7); Nucleated Red Blood Cells Perc 0.2 % (0.0-0.2); Platelet Count Result 208 k/mm3 (150-375); Red Blood Count 2.68 M/mm3 (4.6-6.20); Red Cell Distribution Width 19.9 % (11.5-14.5); White Blood Count 10.4 K/mm3 (4.5-10.0)
[2021-01-14] MEDS: TOLNAFTATE 1% POWDER 45 GM BTL 1 APPLIC TOPICAL ×3 (06:02→21:17)
[2021-01-14] MEDS: HEPARIN SODIUM 5,000 UNITS/ML VIAL 5000 UNITS SUB-Q ×3 (06:02→21:13)
[2021-01-14 06:03] LABS: Anion Gap 7 mmol/L (8-16); Blood Urea Nitrogen 36 mg/dL (9-20); Calcium 7.9 mg/dL (8.4-10.2); Carbon Dioxide 24 mmol/L (22-30); Chloride 104 mmol/L (98-107); Estimated CRCL calculation 43 ml/min; Estimated Glomerular Filt Rate 27; Glucose 207 mg/dL (65-110); Potassium 4.2 mmol/L (3.4-5.0); Sodium 135 mmol/L (137-145)
[2021-01-14 06:41] LABS: Platelet Estimate Adequate (Adequate)
[2021-01-14 06:42] LABS: Anisocytosis 2+ (NORMAL); Hypochromasia 1+ (NORMAL); Ovalocytes 2+ (NORMAL)
[2021-01-14] MEDS: HYDROcodone/acetaminophen (*CRX) 10-325 MG TABLET 1 TAB PO ×2 (08:17→16:36)
[2021-01-14] MEDS: VANCOMYCIN ORAL 125 MG/2.5 ML SYRUP PO ×2 (08:19→21:13)
[2021-01-14] MEDS: PANTOPRAZOLE 40 MG TABLET PO ×2 (08:19→21:13)
[2021-01-14 08:48] LABS: Glucose Point of Care 200 mg/dl (65-105)
--- NOTE | 2021-01-14 11:24 | PCNFU ---
Nutrition Follow-Up Complete: Inadequate oral intake related to diet order as evidenced by clear liquid. Goal: Patient to meet estimated nutritional needs. Patient is progressing towards goal. No new goal at this time. Pt current nutrition is diabetic consistent carbohydrate diet. Last recorded weight is 159.5 kg. Bowel Motility: + BM 01/13/2021 Labs Reviewed: Hgb 7.3, Hct 24.7, Na 135, GFR 27, BUN 36, Cr 2.5, Glu 207 Meds Noted: Coreg, Drisdol, Heparin Sodium, Novolog, Lantus, Protonix, Vancomycin Hcl Additional Notes: Checked up with patient. Patient has been eating 100% of meals 83% of the time. He is unhappy with only having one choice, but has a good appetite. He has a stage IV sacral pressure ulcer with wound vac. Also, he is receiving Glucerna BID providing patient with 220 calories and 10 grams of protein. No weight loss. Follow up every 5 days.
--- NOTE | 2021-01-14 11:43 | PM.IMPN ---
Progress Note: A&P Assessment and Plan (1) RADHA (acute kidney injury): Code(s): N17.9 - Acute kidney failure, unspecified Status: Acute Assessment and Plan: As per previous notes- Prerenal versus Toxic ATN vs AIN due to multiple implicated medications, infection associated GN, etc. Creat is 2.5 today Admission creatinine 0.8. Rosa 69 with FENa 4.15% to suggest AIN. He was switched from Zosyn to imipenem. Nephrology consulted. (2) Chronic atrial fibrillation with RVR: Code(s): I48.20 - Chronic atrial fibrillation, unspecified Status: Acute Assessment and Plan: As per previous notes- Patient with bradycardia but improved off the Digoxin and lower dose Coreg. Then he was having prolonged pauses up to 4.5sec so Coreg stoppedon 01/06. Could be from sleep apnea but apnea link showing AHI 8 and RI 8.3 but he states he was awake for most of it. Cardiology rounding. (3) Fungemia: Code(s): B49 - Unspecified mycosis Status: Acute Assessment and Plan: As per previous notes- Simran glabrata and coagulase negative staph growth in blood on 12/20. Repeat blood cultures 12/22 are negative Completed micafungin through December 28, per ID recommendation. Vanco stopped 01/02. PICC line removed but unable to be replaced. Central line ordered. Surgery to see about central line Pt is presently on iv primaxin. (4) Osteomyelitis: Code(s): M86.9 - Osteomyelitis, unspecified Status: Acute Assessment and Plan: As per previous notes- Concern for osteomyelitis based on the fact that physical exam shows sacral ulcer is palpable to bone Was on vancomycin and Zosyn as ordered by Infectious Disease Service Consulted surgery and he underwent debridement of sacral wound and right amputation ulcer 12/23. Bone Cx 12/23 growing Pediococcus and Simran albicans. He then underwent open diverting end colostomy to prevent decub ulcer inoculation 12/30. Abdominal surgical site healing well and colostomy working well but appears pale today. Unable to get repeat CT A/P due to his size. Pt seen by wound team. Patient has wound vac that is being changed periodically. Currently on Primaxin. Plan for 4 weeks of IV abx (day 23). (5) Gross hematuria: Code(s): R31.0 - Gross hematuria Status: Acute Assessment and Plan: As per previous notes- Has undergone irrigation of Abarca with Urology. Pt seen by urology. Continue halfway catheter as pt has bilateral LE amputations and decub ulcer. Catheter change monthly recommended. (6) Diabetes: Code(s): E11.9 - Type 2 diabetes mellitus without complications Status: Chronic Assessment and Plan: A1c 8.6 in October. Glucose is 207. Continue Accuchecks with sliding scale protocol. Pt is on 32 units of Lantus. (7) Functional quadriplegia: Code(s): R53.2 - Functional quadriplegia Status: Acute Assessment and Plan: As per previous notes- Patient is status post bilateral lower extremity amputation. He also has bilateral upper extremity paralysis. Bedridden. (8) C. 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 Patient is currently on vancomycin p.o. b.i.d. through 01/18/2021. Stool is formed. (9) Sacral decubitus ulcer: Code(s): L89.159 - Pressure ulcer of sacral region, unspecified stage Status: Acute Assessment and Plan: As per previous notes-Not with wound VAC, having dressing changes with Dakin solution. (10) Acute UTI: Code(s): N39.0 - Urinary tract infection, site not specified Status: Acute Assessment and Plan: Possible cause of hematuria. Urine culture negative. This was treated with the broad spectrum abx. (11) DVT prophylaxis: Code(s): Z29.9 -
[2021-01-14] MEDS: SOD HYPOCHLORITE 1/4 STRENGTH 473 ML 1 APPLIC TOPICAL ×2 (12:26→21:16)
[2021-01-14] MEDS: INSULIN ASPART (*BKC) 100 UNITS/ML SUB-Q ×2 (12:28→17:58)
[2021-01-14 12:32] LABS: Glucose Point of Care 202 mg/dl (65-105)
--- NOTE | 2021-01-14 14:39 | P.PNNP_ITS ---
Progress Note: A&P Assessment and Plan (1) RADHA (acute kidney injury): Code(s): N17.9 - Acute kidney failure, unspecified Status: Acute Assessment and Plan: * etiology not clear * possibly simple ATN from his infection issues He continues on vancomycin and imipenem. Recent cultures are negative. 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 not likely in this clinical scenario. * possible AIN This is unlikely. * prerenal azotemia but urine electrolytes argue against this and he is positive with regard to his I/Os at this time and he has some swelling. * renal u/s without hydro or other anatomical issues (done on 01/02/21 and 01/07/21) * CPK okay * creatinine is trending downwards . Today it is 2.5. * He may have some residual chronic kidney disease. It is unclear what his baseline is going to be. * He does have some swelling. We will restart torsemide. (2) Sacral decubitus ulcer: Code(s): L89.159 - Pressure ulcer of sacral region, unspecified stage Status: Acute Assessment and Plan: * complicated by osteomyelitis * s/p diverting colostomy to allow for better healing * local wound care and wound vac (3) Fungemia: Code(s): B49 - Unspecified mycosis Status: Acute Assessment and Plan: * as noted by blood/bone cultures * Simran glabrata and coagulase negative staph growth in blood on 12/20; repeat blood cultures 12/22 negative * completed micafungin course (completed on 12/28/20) per ID recommendations (4) Osteomyelitis: Code(s): M86.9 - Osteomyelitis, unspecified Status: Acute Assessment and Plan: * bone culture (12/23/20) growing Pediococcus and Simran albicans * was on vancomycin and zosyn but currently on primaxin * continue current therapy (5) Gross hematuria: Code(s): R31.0 - Gross hematuria Status: Acute Assessment and Plan: * Urology recommendations noted * continue shaw catheter given immobility and sacral wound * Urine is clear and yellow now. (6) Diabetes: Code(s): E11.9 - Type 2 diabetes mellitus without complications Status: Chronic Assessment and Plan: On Accu-Cheks and sliding-scale insulin. Subjective Date/time seen: 01/14/21 14:39 Interval history: Patient is feeling okay right now. No complaints. Exam Narrative: General: WD/WN male in NAD Heart: normal S1 and S2; no rub Lungs: clear bilaterally Abdomen: soft, nontender, nondistended, positive bowel sounds; colostomy noted . Wound well apposed. Extremities: no cyanosis or clubbing; trace edema - s/p left AKA and right BKA Skin: No rash or subQ nodules Objective Data Vital Signs Vital Signs: Vital Signs - 24 hr 01/13/21 16:00 01/13/21 17:00 01/13/21 19:36 Temperature 36.7 C 36.5 C Pulse Rate 85 82 81 Respiratory Rate 16 18 Blood Pressure 124/52 L 130/68 Pulse Oximetry 94 98 01/13/21 20:00 01/14/21 00:00 01/14/21 04:00 Temperature Pulse Rate 78 83 82 Respiratory Rate Blood Pressure Pulse Oximetry 01/14/21 06:16 01/14/21 08:00 01/14/21 12:00 Temperature 36.5 C Pulse Rate 81 78 82 Respiratory Rate 18 Blood Press
--- NOTE | 2021-01-14 14:39 | PM.PNNEP ---
Progress Note: A&P Assessment and Plan (1) RADHA (acute kidney injury): Code(s): N17.9 - Acute kidney failure, unspecified Status: Acute Assessment and Plan: etiology not clear possibly simple ATN from his infection issues He continues on vancomycin and imipenem. Recent cultures are negative. 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 not likely in this clinical scenario. possible AIN This is unlikely. prerenal azotemia but urine electrolytes argue against this and he is positive with regard to his I/Os at this time and he has some swelling. renal u/s without hydro or other anatomical issues (done on 01/02/21 and 01/07/21) CPK okay creatinine is trending downwards . Today it is 2.5. He may have some residual chronic kidney disease. It is unclear what his baseline is going to be. He does have some swelling. We will restart torsemide. (2) Sacral decubitus ulcer: Code(s): L89.159 - Pressure ulcer of sacral region, unspecified stage Status: Acute Assessment and Plan: complicated by osteomyelitis s/p diverting colostomy to allow for better healing local wound care and wound vac (3) Fungemia: Code(s): B49 - Unspecified mycosis Status: Acute Assessment and Plan: as noted by blood/bone cultures Simran glabrata and coagulase negative staph growth in blood on 12/20; repeat blood cultures 12/22 negative completed micafungin course (completed on 12/28/20) per ID recommendations (4) Osteomyelitis: Code(s): M86.9 - Osteomyelitis, unspecified Status: Acute Assessment and Plan: bone culture (12/23/20) growing Pediococcus and Simran albicans was on vancomycin and zosyn but currently on primaxin continue current therapy (5) Gross hematuria: Code(s): R31.0 - Gross hematuria Status: Acute Assessment and Plan: Urology recommendations noted continue shaw catheter given immobility and sacral wound Urine is clear and yellow now. (6) Diabetes: Code(s): E11.9 - Type 2 diabetes mellitus without complications Status: Chronic Assessment and Plan: On Accu-Cheks and sliding-scale insulin. Subjective Date/time seen: 01/14/21 14:39 Interval history: Patient is feeling okay right now. No complaints. Exam Narrative: General: WD/WN male in NAD Heart: normal S1 and S2; no rub Lungs: clear bilaterally Abdomen: soft, nontender, nondistended, positive bowel sounds; colostomy noted . Wound well apposed. Extremities: no cyanosis or clubbing; trace edema - s/p left AKA and right BKA Skin: No rash or subQ nodules Objective Data Vital Signs Vital Signs: Vital Signs - 24 hr 01/13/21 16:00 01/13/21 17:00 01/13/21 19:36 Temperature 36.7 C 36.5 C Pulse Rate 85 82 81 Respiratory Rate 16 18 Blood Pressure 124/52 L 130/68 Pulse Oximetry 94 98 01/13/21 20:00 01/14/21 00:00 01/14/21 04:00 Temperature Pulse Rate 78 83 82 Respiratory Rate Blood Pressure Pulse Oximetry 01/14/21 06:16 01/14/21 08:00 01/14/21 12:00 Temperature 36.5 C Pulse Rate 81 78 82 Respiratory Rate 18 Blood Pressure 137/74 Pulse Oximetry 99 01/14/21 14:00 Temperature 36.5 C Pulse Rate 83 Respiratory Rate 20 Blood Pressure 126/35 L Pulse Oximetry 97 Intake/Output Intake/Output: Intake & Output 01/11/21 01/12/21 01/13/21 01/14/21 23:59 23:59 23:59 23:59 Intake Total 1840 2540 1410 1030 Output Total 1720 2385 2650 3100 Balance 120 155 -1240 -2070 Meds/Results Medications: Active Medications Generic Name Dose Route Start Last Admin Trade Name José Miguel PRN Reason Stop Dose Admin Acetaminophen 650 mg 12/30/20 15:33 Acetaminophen 325 Mg Tablet PO Q6H PRN Mild Pain (1-3) or Fever Hydrocodone Bitart/Acetaminophen 1 tab 12/30/20 15:33 01/07/21 15:00
[2021-01-14 17:57] LABS: Glucose Point of Care 218 mg/dl (65-105)
[2021-01-14] MEDS: TORSEMIDE 10 MG TABLET PO (17:58)
[2021-01-14 21:07] LABS: Glucose Point of Care 225 mg/dl (65-105)
[2021-01-14] MEDS: INSULIN GLARGINE (*BKC) 100 UNITS/ML 32 UNITS SUB-Q (21:18)
[2021-01-15] VITALS (9 sets, daily range): BP systolic 142–150; BP diastolic 63–66; PULSE 76–89; RESP 16–18; TEMP 35.7–36.5; O2SAT 99–100
[2021-01-15] MEDS: HEPARIN SODIUM 5,000 UNITS/ML VIAL 5000 UNITS SUB-Q ×2 (05:39→15:48)
[2021-01-15] MEDS: TOLNAFTATE 1% POWDER 45 GM BTL 1 APPLIC TOPICAL ×2 (05:39→22:14)
[2021-01-15] MEDS: HYDROcodone/acetaminophen (*CRX) 10-325 MG TABLET 1 TAB PO ×2 (06:27→17:14)
[2021-01-15] MEDS: ONDANSETRON INJ 4 MG/2 ML VIAL IV PUSH (06:28)
[2021-01-15 08:17] LABS: Glucose Point of Care 235 mg/dl (65-105)
[2021-01-15 08:18] LABS: Albumin Level 2.4 g/dL (3.5-5.1); Anion Gap 8 mmol/L (8-16); Blood Urea Nitrogen 34 mg/dL (9-20); Calcium 8.2 mg/dL (8.4-10.2); Carbon Dioxide 25 mmol/L (22-30); Chloride 101 mmol/L (98-107); Estimated CRCL calculation 47 ml/min; Estimated Glomerular Filt Rate 29; Glucose 237 mg/dL (65-110); Phosphorus 4.4 mg/dL (2.5-4.5); Potassium 4.1 mmol/L (3.4-5.0); Sodium 134 mmol/L (137-145)
[2021-01-15] MEDS: TORSEMIDE 10 MG TABLET PO (08:35)
[2021-01-15] MEDS: VANCOMYCIN ORAL 125 MG/2.5 ML SYRUP PO ×2 (08:35→22:14)
[2021-01-15] MEDS: PANTOPRAZOLE 40 MG TABLET PO ×2 (08:36→22:14)
[2021-01-15] MEDS: INSULIN ASPART (*BKC) 100 UNITS/ML SUB-Q ×3 (08:37→17:09)
--- NOTE | 2021-01-15 10:44 | P.PNNP_ITS ---
Progress Note: A&P Assessment and Plan (1) RADHA (acute kidney injury): Code(s): N17.9 - Acute kidney failure, unspecified Status: Acute Assessment and Plan: * ATN * CK okay * Renal u/s okay * U' lytes nonprerenal * most likely ATN from infection. * creatinine is trending downwards . Today it is 2.3 (in spite of the torsemide. * He may have some residual chronic kidney disease. It is unclear what his baseline is going to be. * He does have some swelling. back on the torsemide * u.o. 2800 yesterday (2) Sacral decubitus ulcer: Code(s): L89.159 - Pressure ulcer of sacral region, unspecified stage Status: Acute Assessment and Plan: * complicated by osteomyelitis * s/p diverting colostomy to allow for better healing * local wound care and wound vac (3) Fungemia: Code(s): B49 - Unspecified mycosis Status: Acute Assessment and Plan: * as noted by blood/bone cultures * Simran glabrata and coagulase negative staph growth in blood on 12/20; repeat blood cultures 12/22 negative * completed micafungin course (completed on 12/28/20) per ID recommendations (4) Osteomyelitis: Code(s): M86.9 - Osteomyelitis, unspecified Status: Acute Assessment and Plan: * bone culture (12/23/20) growing Pediococcus and Simran albicans * on primaxin * continue current therapy (5) Gross hematuria: Code(s): R31.0 - Gross hematuria Status: Acute Assessment and Plan: * Urology on the case * continue shaw catheter given immobility and sacral wound * Urine is clear and yellow now. (6) Diabetes: Code(s): E11.9 - Type 2 diabetes mellitus without complications Status: Chronic Assessment and Plan: On Accu-Cheks and sliding-scale insulin. Subjective Date/time seen: 01/15/21 10:44 Interval history: Patient is feeling okay right now. No complaints except dry skin Exam Narrative: General: WD/WN male in NAD Heart: normal S1 and S2; no rub Lungs: clear bilaterally Abdomen: soft, nontender, nondistended, positive bowel sounds; colostomy noted . Extremities: no cyanosis or clubbing; trace edema - s/p left AKA and right BKA Skin: No rash or subQ nodules Objective Data Vital Signs Vital Signs: Vital Signs - 24 hr 01/14/21 12:00 01/14/21 14:00 01/14/21 20:00 Temperature 36.5 C Pulse Rate 82 83 84 Respiratory Rate 20 Blood Pressure 126/35 L Pulse Oximetry 97 01/14/21 21:00 01/15/21 00:00 01/15/21 04:08 Temperature 36.6 C Pulse Rate 85 82 88 Respiratory Rate 18 Blood Pressure 132/64 Pulse Oximetry 98 01/15/21 06:24 01/15/21 08:00 Temperature 36.4 C L Pulse Rate 89 86 Respiratory Rate 18 Blood Pressure 150/66 H Pulse Oximetry 99 Intake/Output Intake/Output: Intake & Output 01/12/21 01/13/21 01/14/21 01/15/21 23:59 23:59 23:59 23:59 Intake Total 2540 1410 1580 680 Output Total 2385 2650 3100 1999 Balance 155 1240 -1520 1320 Meds/Results Medications: Active Medications Generic Name Dose Route Start Last Admin Trade Name Freq PRN Reason Stop Dose Admin Acetami
--- NOTE | 2021-01-15 10:44 | PM.PNNEP ---
Progress Note: A&P Assessment and Plan (1) RADHA (acute kidney injury): Code(s): N17.9 - Acute kidney failure, unspecified Status: Acute Assessment and Plan: ATN CK okay Renal u/s okay U' lytes nonprerenal most likely ATN from infection. creatinine is trending downwards . Today it is 2.3 (in spite of the torsemide. He may have some residual chronic kidney disease. It is unclear what his baseline is going to be. He does have some swelling. back on the torsemide u.o. 2800 yesterday (2) Sacral decubitus ulcer: Code(s): L89.159 - Pressure ulcer of sacral region, unspecified stage Status: Acute Assessment and Plan: complicated by osteomyelitis s/p diverting colostomy to allow for better healing local wound care and wound vac (3) Fungemia: Code(s): B49 - Unspecified mycosis Status: Acute Assessment and Plan: as noted by blood/bone cultures Simran glabrata and coagulase negative staph growth in blood on 12/20; repeat blood cultures 12/22 negative completed micafungin course (completed on 12/28/20) per ID recommendations (4) Osteomyelitis: Code(s): M86.9 - Osteomyelitis, unspecified Status: Acute Assessment and Plan: bone culture (12/23/20) growing Pediococcus and Simran albicans on primaxin continue current therapy (5) Gross hematuria: Code(s): R31.0 - Gross hematuria Status: Acute Assessment and Plan: Urology on the case continue shaw catheter given immobility and sacral wound Urine is clear and yellow now. (6) Diabetes: Code(s): E11.9 - Type 2 diabetes mellitus without complications Status: Chronic Assessment and Plan: On Accu-Cheks and sliding-scale insulin. Subjective Date/time seen: 01/15/21 10:44 Interval history: Patient is feeling okay right now. No complaints except dry skin Exam Narrative: General: WD/WN male in NAD Heart: normal S1 and S2; no rub Lungs: clear bilaterally Abdomen: soft, nontender, nondistended, positive bowel sounds; colostomy noted . Extremities: no cyanosis or clubbing; trace edema - s/p left AKA and right BKA Skin: No rash or subQ nodules Objective Data Vital Signs Vital Signs: Vital Signs - 24 hr 01/14/21 12:00 01/14/21 14:00 01/14/21 20:00 Temperature 36.5 C Pulse Rate 82 83 84 Respiratory Rate 20 Blood Pressure 126/35 L Pulse Oximetry 97 01/14/21 21:00 01/15/21 00:00 01/15/21 04:08 Temperature 36.6 C Pulse Rate 85 82 88 Respiratory Rate 18 Blood Pressure 132/64 Pulse Oximetry 98 01/15/21 06:24 01/15/21 08:00 Temperature 36.4 C L Pulse Rate 89 86 Respiratory Rate 18 Blood Pressure 150/66 H Pulse Oximetry 99 Intake/Output Intake/Output: Intake & Output 01/12/21 01/13/21 01/14/21 01/15/21 23:59 23:59 23:59 23:59 Intake Total 2540 1410 1580 680 Output Total 2385 2650 3100 1999 Balance 155 -7660 -1520 1320 Meds/Results Medications: Active Medications Generic Name Dose Route Start Last Admin Trade Name Freq PRN Reason Stop Dose Admin Acetaminophen 650 mg 12/30/20 15:33 Acetaminophen 325 Mg Tablet PO Q6H PRN Mild Pain (1-3) or Fever Hydrocodone Bitart/Acetaminophen 1 tab 12/30/20 15:33 01/07/21 15:00 Hydrocodone/Acetaminophen (*Crx) 5-325 Mg Tablet PO 1 tab Q4H PRN Administration Pain Rated 4-6 Hydrocodone Bitart/Acetaminophen 1 tab 12/30/20 15:33 01/15/21 06:27 Hydrocodone/Acetaminophen (*Crx) 10-325 Mg Tablet PO 1 tab Q6H PRN Administration Pain Rated 7-10 Carvedilol 3.125 mg 01/02/21 21:00 01/06/21 11:11 Carvedilol 3.125 Mg Tablet PO 3.125 mg Q12HR FAROOQ Administration Dextrose 12.5 gm 12/20/20 05:22 Dextrose 50% 25 Gm/50 Ml Syringe IV PUSH PRN PRN Hypoglycemia Protocol Ergocalciferol 50,000 unit 12/23/20 09:00 01/13/21 08:22 Ergocalciferol 50,000 Unit Capsule FEED TU
[2021-01-15 12:04] LABS: Glucose Point of Care 238 mg/dl (65-105)
--- NOTE | 2021-01-15 16:45 | PM.IMPN ---
Progress Note: A&P Assessment and Plan (1) RADHA (acute kidney injury): Code(s): N17.9 - Acute kidney failure, unspecified Status: Acute Assessment and Plan: Patietn has developed RADHA. Possibly prerenal versus Toxic ATN vs AIN due to multiple implicated medications, infection associated GN, etc. Admission creatinine 0.8. Noted rising Cr. Renal ultrasound 01/02 without hydronephrosis or structural abnormalities. CK<20. Urine eos rare. Rosa 69 with FENa 4.15% to suggest AIN. He was switched from Zosyn to imipenem. Nephrology consulted and appreciate their input. Surgery note reviewed. CT A/P cancelled because patient too big for scanner. Cr better at 2.3 and slowly improving. Follow. Diuretics resumed with excellent UOP. Montor closely. (2) Chronic atrial fibrillation with RVR: Code(s): I48.20 - Chronic atrial fibrillation, unspecified Status: Acute Assessment and Plan: Patient with bradycardia but improved off the Digoxin and lower dose Coreg. Then he was having prolonged pauses up to 4.5sec so Coreg stopped (last dose was 01/06 at 11:11am). Could be from sleep apnea but apnea link showing AHI 8 and RI 8.3 but he states he was awake for most of it. Appreciate cardiology input. Resume Eliquis. Continue tele. 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 Repeat blood cultures 12/22 are negative Completed micafungin through December 28, per ID recommendation. Vanco IV stopped 01/02. PICC line removed but unable to be replaced. Central line ordered. Probably dose not need central line now. (4) Osteomyelitis: Code(s): M86.9 - Osteomyelitis, unspecified Status: Acute Assessment and Plan: Concern for osteomyelitis based on the fact that physical exam shows sacral ulcer is palpable to bone Was on vancomycin and Zosyn as ordered by Infectious Disease Service Consulted surgery and he underwent debridement of sacral wound and right amputation ulcer 12/23. Bone Cx 12/23 growing Pediococcus and Simran albicans. He then underwent open diverting end colostomy to prevent decub ulcer inoculation 12/30. Abdominal surgical site healing well and colostomy working well. Unable to get repeat CT A/P due to his size. Pt seen by wound team. Currently on Primaxin now and ID is aware and agreed. As above. Continue wound changes at bedside. Plan for IV abx through 01/18 (5) Gross hematuria: Code(s): R31.0 - Gross hematuria Status: Acute Assessment and Plan: Has undergone irrigation of [place] with Urology. Pt seen by urology. Continue termite control servicer catheter as pt has bilateral LE amputations and decub ulcer. Catheter change monthly recommended. Okay to resume anticoagulation. (6) Diabetes: Code(s): E11.9 - Type 2 diabetes mellitus without complications Status: Chronic Assessment and Plan: A1c 8.6 in October. The patient's blood glucose was reviewed on 01/15 Glucose still elevated. Continue Accuchecks with sliding scale protocol. Hypoglycemia protocol available as needed. Will advance Lantus. (7) Functional quadriplegia: Code(s): R53.2 - Functional quadriplegia Status: Acute Assessment and Plan: Patient is status post bilateral lower extremity amputation. 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 Patient needs full care. 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 Patient is currently on vancomycin p.o. b.i.d. through 01/18/2021. Stool volume noted and up yesteday but RN states stool is more formed now (9) Sacral decubitus ulcer: Code(s): L89.159 - Pressure ulcer of sacral region, unspe
[2021-01-15 17:13] LABS: Glucose Point of Care 264 mg/dl (65-105)
[2021-01-15 21:53] LABS: Glucose Point of Care 298 mg/dl (65-105)
[2021-01-15] MEDS: SOD HYPOCHLORITE 1/4 STRENGTH 473 ML 1 APPLIC TOPICAL (22:13)
[2021-01-15] MEDS: INSULIN GLARGINE (*BKC) 100 UNITS/ML 40 UNITS SUB-Q (22:15)
[2021-01-15] MEDS: APIXABAN 5 MG TABLET PO (22:15)
[2021-01-16] VITALS (14 sets, daily range): BP systolic 119–137; BP diastolic 37–73; PULSE 70–95; RESP 14–18; TEMP 36.1–36.7; O2SAT 97–100
[2021-01-16 05:58] LABS: Basophils Absolute Auto 0.1 K/mm3 (0.0-0.1); Basophils Percent Auto 0.6 % (0.2-1.2); Eosinophils Absolute Auto 0.3 K/mm3 (0-0.3); Eosinophils Percent Auto 2.7 % (0-4.4); Hematocrit 23.1 % (42.0-52.0); Immature Granulocyte Absolute 0.73 K/mm3 (0.00-0.031); Immature Granulocyte Percent A 6.1 % (0-0.5); Lymphocytes Absolute Auto 0.83 K/mm3 (0.9-3.2); Mean Corpuscular HGB Conc 29.9 g/dl (32-36); Mean Corpuscular Hemoglobin 27.5 pg (26-34); Mean Platelet Volume 8.6 fl (7.4-10.4); Monocytes Absolute Auto 1.1 K/mm3 (0.1-0.6); Monocytes Percent Auto 9.3 % (2.6-8.5); Neutrophils Absolute Auto 8.8 K/mm3 (1.3-6.7); Neutrophils Percent Auto 74.3 % (45.5-73.1); Nucleated Red Blood Cells Perc 0.2 % (0.0-0.2); Platelet Count Result 197 k/mm3 (150-375); Red Blood Count 2.51 M/mm3 (4.6-6.20); Red Cell Distribution Width 19.6 % (11.5-14.5); White Blood Count 11.9 K/mm3 (4.5-10.0)
[2021-01-16 06:10] LABS: Hemoglobin 6.9 g/dL (14.0-18.0)
[2021-01-16 06:14] LABS: Albumin Level 2.4 g/dL (3.5-5.1); Anion Gap 4 mmol/L (8-16); Blood Urea Nitrogen 33 mg/dL (9-20); Carbon Dioxide 26 mmol/L (22-30); Chloride 101 mmol/L (98-107); Estimated CRCL calculation 51 ml/min; Estimated Glomerular Filt Rate 32; Glucose 279 mg/dL (65-110); Magnesium 1.4 mg/dL (1.6-2.3); Phosphorus 4.3 mg/dL (2.5-4.5); Potassium 3.9 mmol/L (3.4-5.0); Sodium 131 mmol/L (137-145)
[2021-01-16] MEDS: TOLNAFTATE 1% POWDER 45 GM BTL 1 APPLIC TOPICAL ×3 (06:27→22:02)
[2021-01-16 07:13] LABS: Platelet Estimate Adequate (Adequate)
[2021-01-16 07:14] LABS: Anisocytosis 2+ (NORMAL); Atypical Lymphocytes Present; Hypochromasia 2+ (NORMAL); Microcytosis 1+ (NORMAL)
[2021-01-16] MEDS: TORSEMIDE 10 MG TABLET PO (08:16)
[2021-01-16] MEDS: PANTOPRAZOLE 40 MG TABLET PO ×2 (08:16→22:01)
[2021-01-16] MEDS: APIXABAN 5 MG TABLET PO ×2 (08:17→22:01)
[2021-01-16] MEDS: HYDROcodone/acetaminophen (*CRX) 10-325 MG TABLET 1 TAB PO ×3 (08:17→22:22)
[2021-01-16] MEDS: VANCOMYCIN ORAL 125 MG/2.5 ML SYRUP PO ×2 (08:17→22:02)
[2021-01-16] MEDS: SOD HYPOCHLORITE 1/4 STRENGTH 473 ML 1 APPLIC TOPICAL ×2 (08:17→22:02)
[2021-01-16] MEDS: MAGNESIUM SULF 2 GM/WATER 50ML 2 GM/50 ML BAG IVPB (08:17)
[2021-01-16 08:27] LABS: Glucose Point of Care 270 mg/dl (65-105)
[2021-01-16] MEDS: INSULIN ASPART (*BKC) 100 UNITS/ML 8 UNITS SUB-Q ×3 (08:28→16:56)
[2021-01-16] MEDS: INSULIN ASPART (*BKC) 100 UNITS/ML SUB-Q ×2 (08:29→11:50)
[2021-01-16] MEDS: MAGNESIUM OXIDE 400 MG TABLET PO (08:32)
--- NOTE | 2021-01-16 10:16 | P.PNNP_ITS ---
Progress Note: A&P Assessment and Plan (1) RADHA (acute kidney injury): Code(s): N17.9 - Acute kidney failure, unspecified Status: Acute Assessment and Plan: * ATN * CK okay * Renal u/s okay * U' lytes nonprerenal * most likely ATN from infection. * creatinine is trending downwards . Today it is 2.1 * we discussed at length. Since he has had 2 other episodes of acute kidney injury, both of them requiring dialysis, it is likely that he will have some residual chronic kidney disease after this. * He does have some swelling. back on the torsemide. * u.o. 3600 yesterday (2) Sacral decubitus ulcer: Code(s): L89.159 - Pressure ulcer of sacral region, unspecified stage Status: Acute Assessment and Plan: * complicated by osteomyelitis * s/p diverting colostomy to allow for better healing * local wound care and wound vac (3) Fungemia: Code(s): B49 - Unspecified mycosis Status: Acute Assessment and Plan: * as noted by blood/bone cultures * Simran glabrata and coagulase negative staph growth in blood on 12/20; repeat blood cultures 12/22 negative * completed micafungin course (completed on 12/28/20) per ID recommendations (4) Osteomyelitis: Code(s): M86.9 - Osteomyelitis, unspecified Status: Acute Assessment and Plan: * bone culture (12/23/20) growing Pediococcus and Simran albicans * on primaxin * continue current therapy (5) Gross hematuria: Code(s): R31.0 - Gross hematuria Status: Acute Assessment and Plan: * Urology on the case * continue shaw catheter given immobility and sacral wound * Urine is clear and yellow now. (6) Diabetes: Code(s): E11.9 - Type 2 diabetes mellitus without complications Status: Chronic Assessment and Plan: On Accu-Cheks and sliding-scale insulin. Subjective Date/time seen: 01/16/21 10:16 Interval history: Patient is feeling okay right now. No complaints except dry skin Still has some swelling Exam Narrative: General: WD/WN male in NAD Heart: normal S1 and S2; no rub Lungs: clear to auscultation Abdomen: soft, nontender, nondistended, positive bowel sounds; colostomy noted . Extremities: 1+ edema - s/p left AKA and right BKA Skin: No rash or subQ nodules Objective Data Vital Signs Vital Signs: Vital Signs - 24 hr 01/15/21 12:00 01/15/21 16:00 01/15/21 17:00 Temperature 35.7 C L Pulse Rate 76 80 84 Respiratory Rate 16 Blood Pressure 142/64 H Pulse Oximetry 100 01/15/21 20:00 01/15/21 20:02 01/16/21 00:00 Temperature 36.5 C Pulse Rate 77 83 70 Respiratory Rate 18 Blood Pressure 143/63 H Pulse Oximetry 100 01/16/21 04:00 01/16/21 04:42 Temperature 36.4 C Pulse Rate 82 95 Respiratory Rate 16 Blood Pressure 136/64 Pulse Oximetry 99 Intake/Output Intake/Output: Intake & Output 01/13/21 01/14/21 01/15/21 01/16/21 23:59 23:59 23:59 23:59 Intake Total 1410 1580 1840 960 Output Total 2650 3100 3650 1300 Balance -1240 -1520 -1810 -340 Meds/Results Medications: Active Medications Generic Name Dose Route Start L
--- NOTE | 2021-01-16 10:16 | PM.PNNEP ---
Progress Note: A&P Assessment and Plan (1) RADHA (acute kidney injury): Code(s): N17.9 - Acute kidney failure, unspecified Status: Acute Assessment and Plan: ATN CK okay Renal u/s okay U' lytes nonprerenal most likely ATN from infection. creatinine is trending downwards . Today it is 2.1 we discussed at length. Since he has had 2 other episodes of acute kidney injury, both of them requiring dialysis, it is likely that he will have some residual chronic kidney disease after this. He does have some swelling. back on the torsemide. u.o. 3600 yesterday (2) Sacral decubitus ulcer: Code(s): L89.159 - Pressure ulcer of sacral region, unspecified stage Status: Acute Assessment and Plan: complicated by osteomyelitis s/p diverting colostomy to allow for better healing local wound care and wound vac (3) Fungemia: Code(s): B49 - Unspecified mycosis Status: Acute Assessment and Plan: as noted by blood/bone cultures Simran glabrata and coagulase negative staph growth in blood on 12/20; repeat blood cultures 12/22 negative completed micafungin course (completed on 12/28/20) per ID recommendations (4) Osteomyelitis: Code(s): M86.9 - Osteomyelitis, unspecified Status: Acute Assessment and Plan: bone culture (12/23/20) growing Pediococcus and Simran albicans on primaxin continue current therapy (5) Gross hematuria: Code(s): R31.0 - Gross hematuria Status: Acute Assessment and Plan: Urology on the case continue shaw catheter given immobility and sacral wound Urine is clear and yellow now. (6) Diabetes: Code(s): E11.9 - Type 2 diabetes mellitus without complications Status: Chronic Assessment and Plan: On Accu-Cheks and sliding-scale insulin. Subjective Date/time seen: 01/16/21 10:16 Interval history: Patient is feeling okay right now. No complaints except dry skin Still has some swelling Exam Narrative: General: WD/WN male in NAD Heart: normal S1 and S2; no rub Lungs: clear to auscultation Abdomen: soft, nontender, nondistended, positive bowel sounds; colostomy noted . Extremities: 1+ edema - s/p left AKA and right BKA Skin: No rash or subQ nodules Objective Data Vital Signs Vital Signs: Vital Signs - 24 hr 01/15/21 12:00 01/15/21 16:00 01/15/21 17:00 Temperature 35.7 C L Pulse Rate 76 80 84 Respiratory Rate 16 Blood Pressure 142/64 H Pulse Oximetry 100 01/15/21 20:00 01/15/21 20:02 01/16/21 00:00 Temperature 36.5 C Pulse Rate 77 83 70 Respiratory Rate 18 Blood Pressure 143/63 H Pulse Oximetry 100 01/16/21 04:00 01/16/21 04:42 Temperature 36.4 C Pulse Rate 82 95 Respiratory Rate 16 Blood Pressure 136/64 Pulse Oximetry 99 Intake/Output Intake/Output: Intake & Output 01/13/21 01/14/21 01/15/21 01/16/21 23:59 23:59 23:59 23:59 Intake Total 1410 1580 1840 960 Output Total 2650 3100 3650 1300 Balance -6038 -1520 -1810 -554 Meds/Results Medications: Active Medications Generic Name Dose Route Start Last Admin Trade Name Freq PRN Reason Stop Dose Admin Acetaminophen 650 mg 12/30/20 15:33 Acetaminophen 325 Mg Tablet PO Q6H PRN Mild Pain (1-3) or Fever Hydrocodone Bitart/Acetaminophen 1 tab 12/30/20 15:33 01/07/21 15:00 Hydrocodone/Acetaminophen (*Crx) 5-325 Mg Tablet PO 1 tab Q4H PRN Administration Pain Rated 4-6 Hydrocodone Bitart/Acetaminophen 1 tab 12/30/20 15:33 01/16/21 08:17 Hydrocodone/Acetaminophen (*Crx) 10-325 Mg Tablet PO 1 tab Q6H PRN Administration Pain Rated 7-10 Apixaban 5 mg 01/15/21 21:00 01/16/21 08:17 Apixaban 5 Mg Tablet PO 5 mg Q12HR FAROOQ Administration Carvedilol 3.125 mg 01/02/21 21:00 01/06/21 11:11 Carvedilol 3.125 Mg Tablet PO 3.125 mg Q12HR FAROOQ Administration Dextrose 12.5 gm 12/20/20 05:22 Dextr
[2021-01-16 11:44] LABS: Glucose Point of Care 231 mg/dl (65-105)
[2021-01-16 16:49] LABS: Glucose Point of Care 207 mg/dl (65-105)
[2021-01-16 19:38] LABS: Hemoglobin 7.9 g/dL (14.0-18.0)
[2021-01-16 21:42] LABS: Glucose Point of Care 264 mg/dl (65-105)
[2021-01-16] MEDS: ONDANSETRON INJ 4 MG/2 ML VIAL IV PUSH (21:59)
[2021-01-16] MEDS: INSULIN GLARGINE (*BKC) 100 UNITS/ML 45 UNITS SUB-Q (22:01)
[2021-01-17] VITALS (9 sets, daily range): BP systolic 128–137; BP diastolic 43–52; PULSE 81–94; RESP 12–24; TEMP 36.1–36.7; O2SAT 96–100
[2021-01-17 05:59] LABS: Hematocrit 25.1 % (42.0-52.0); Hemoglobin 7.7 g/dL (14.0-18.0); Mean Corpuscular HGB Conc 30.7 g/dl (32-36); Mean Corpuscular Hemoglobin 27.2 pg (26-34); Mean Corpuscular Volume 88.7 fl (80-100); Mean Platelet Volume 8.3 fl (7.4-10.4); Platelet Count Result 204 k/mm3 (150-375); Red Blood Count 2.83 M/mm3 (4.6-6.20); Red Cell Distribution Width 18.9 % (11.5-14.5); White Blood Count 13.7 K/mm3 (4.5-10.0)
[2021-01-17] MEDS: TOLNAFTATE 1% POWDER 45 GM BTL 1 APPLIC TOPICAL ×3 (06:53→22:27)
[2021-01-17 06:58] LABS: Albumin Level 2.3 g/dL (3.5-5.1); Alkaline Phosphatase 73 U/L (38-126); Anion Gap 6 mmol/L (8-16); Aspartate Amino Transferase 11 U/L (17-59); Bilirubin,Total 0.2 mg/dL (0.2-1.3); Blood Urea Nitrogen 30 mg/dL (9-20); Carbon Dioxide 27 mmol/L (22-30); Chloride 101 mmol/L (98-107); Estimated CRCL calculation 53 ml/min; Estimated Glomerular Filt Rate 34; Glucose 234 mg/dL (65-110); Magnesium 1.5 mg/dL (1.6-2.3); Phosphorus 4.4 mg/dL (2.5-4.5); Potassium 3.8 mmol/L (3.4-5.0); Sodium 134 mmol/L (137-145)
[2021-01-17 07:07] LABS: Alanine Aminotransferase < 4 U/L (4-50)
[2021-01-17] MEDS: HYDROcodone/acetaminophen (*CRX) 10-325 MG TABLET 1 TAB PO ×3 (07:28→22:49)
[2021-01-17 08:00] LABS: Atypical Lymphocytes Present; Band Neutrophils Percent 8 % (0-6); Eosinophils Absolute Manual 0.13 K/mm3 (0.02-0.5); Eosinophils Percent Manual 1 % (0-4); Lymphocytes Absolute Manual 1.37 K/mm3 (1.1-4.5); Monocytes Absolute Manual 0.68 K/mm3 (0.1-0.90); Monocytes Percent Manual 5 % (3-9); Neutrophils Percent Manual 76 % (46-73); Platelet Estimate Adequate (Adequate); Total Cells Counted 100
[2021-01-17] MEDS: INSULIN ASPART (*BKC) 100 UNITS/ML 8 UNITS SUB-Q ×3 (08:08→16:58)
[2021-01-17] MEDS: INSULIN ASPART (*BKC) 100 UNITS/ML SUB-Q ×2 (08:08→11:50)
[2021-01-17] MEDS: PANTOPRAZOLE 40 MG TABLET PO ×2 (08:16→22:25)
[2021-01-17] MEDS: APIXABAN 5 MG TABLET PO ×2 (08:17→22:25)
[2021-01-17] MEDS: MAGNESIUM OXIDE 400 MG TABLET PO (08:17)
[2021-01-17 08:24] LABS: Glucose Point of Care 206 mg/dl (65-105)
[2021-01-17] MEDS: VANCOMYCIN ORAL 125 MG/2.5 ML SYRUP PO ×2 (08:42→22:25)
--- NOTE | 2021-01-17 09:06 | PM.IMPN ---
Progress Note: A&P Assessment and Plan (1) RADHA (acute kidney injury): Code(s): N17.9 - Acute kidney failure, unspecified Status: Acute Assessment and Plan: Patietn has developed RADHA. Possibly prerenal versus Toxic ATN vs AIN due to multiple implicated medications, infection associated GN, etc. Admission creatinine 0.8. Noted rising Cr to 3.5. Renal ultrasound 01/02 without hydronephrosis or structural abnormalities. CK<20. Urine eos rare. Rosa 69 with FENa 4.15% to suggest AIN. He was switched from Zosyn to imipenem. Nephrology consulted and appreciate their input. Surgery note reviewed. CT A/P cancelled because patient too big for scanner. Patient was becoming edematous so diuretics started. Cr better at 2.1 and slowly improving; tolerating the diuretics with excellent UOP. Monitor closely. (2) Anemia: Code(s): D64.9 - Anemia, unspecified Status: Acute Assessment and Plan: Hgb 9.3 on admission. Hemoglobin dropped to the 7 range but was stable. Acute blood loss anemia related to recent surgeries and gross hematuria. Patient has underlying chronic anemia related to his multiple chronic medical problems. B12, folate and iron studies noted. Hgb 6.9 today but not much different from the past few days. Transfuion ordered. He is back on Eliquis but no evidence of acute blood loss. Continue to follow. (3) Chronic atrial fibrillation with RVR: Code(s): I48.20 - Chronic atrial fibrillation, unspecified Status: Acute Assessment and Plan: Patient with bradycardia but improved off the Digoxin and lower dose Coreg. Then he was having prolonged pauses up to 4.5sec so Coreg stopped (last dose was 01/06 at 11:11am). Could be from sleep apnea but apnea link showing AHI 8 and RI 8.3 but he states he was awake for most of it. Cardiology following. Tele review showing no significantly prolonged pauses. Eliquis resumed. Continue tele. (4) Fungemia: Code(s): B49 - Unspecified mycosis Status: Acute Assessment and Plan: Simran glabrata and coagulase negative staph growth in blood on 12/20. Repeat blood cultures 12/22 are negative Completed micafungin through December 28, per ID recommendation. Vanco IV stopped 01/02. PICC line removed but unable to be replaced. Central line ordered but probably doesn't need central line now. (5) Osteomyelitis: Code(s): M86.9 - Osteomyelitis, unspecified Status: Acute Assessment and Plan: Concern for osteomyelitis based on the fact that physical exam shows sacral ulcer is palpable to bone Was on vancomycin and Zosyn as ordered by Infectious Disease Service Consulted surgery and he underwent debridement of sacral wound and right amputation ulcer 12/23. Bone Cx 12/23 growing Pediococcus and Simran albicans. He later underwent open diverting end colostomy to prevent decub ulcer inoculation 12/30. Abdominal surgical site healing well and colostomy working well. Unable to get repeat CT A/P due to his size. Pt seen by wound team. Currently on Primaxin now and ID is aware and agreed. As above. Continue wound changes at bedside. Plan for IV abx through 01/18. Stoma noted and patient to be seen by wound care about stoma. (6) Gross hematuria: Code(s): R31.0 - Gross hematuria Status: Acute Assessment and Plan: Has undergone irrigation of Abarca with Urology. Continue long term acute care registered nurse catheter as pt has bilateral LE amputations and decub ulcer. Catheter change monthly recommended. Urology felt that it was okay to resume anticoagulation. (7) Diabetes: Code(s): E11.9 - Type 2 diabetes mellitus without complications Status: Chronic Assessment and Plan: A1c 8.6 in October. The patient's blood glucose was reviewed on 01/16 Glucose still elevated. Continue Accuchecks with sliding scale protocol. Hypoglycemia protocol available as needed. Will advance Lantus again and add Novolog at meal times. (8) Fu
[2021-01-17] MEDS: DOCUSATE SODIUM 100 MG CAPSULE PO ×2 (10:07→22:24)
[2021-01-17] MEDS: TORSEMIDE 10 MG TABLET PO (10:07)
[2021-01-17 11:55] LABS: Glucose Point of Care 208 mg/dl (65-105)
--- NOTE | 2021-01-17 15:31 | P.PNNP_ITS ---
Progress Note: A&P Assessment and Plan (1) RADHA (acute kidney injury): Code(s): N17.9 - Acute kidney failure, unspecified Status: Acute Assessment and Plan: * ATN * CK okay * Renal u/s okay * U' lytes nonprerenal * most likely ATN from infection. * creatinine is trending downwards. Today it is 2.0 * He is still making a really good amount of urine. * His good urine output may be slowing down the recovery of his kidneys but as long as it is trending down words I am good with that. His swelling comes with some morbidity including his dry skin and potential skin breakdown. Note important to continue diuretics. * Likely he is responding to only a low dose of torsemide. (2) Sacral decubitus ulcer: Code(s): L89.159 - Pressure ulcer of sacral region, unspecified stage Status: Acute Assessment and Plan: * complicated by osteomyelitis * s/p diverting colostomy to allow for better healing * local wound care continues (3) Fungemia: Code(s): B49 - Unspecified mycosis Status: Acute Assessment and Plan: * as noted by blood/bone cultures * Simran glabrata and coagulase negative staph growth in blood on 12/20; repeat blood cultures 12/22 negative * completed micafungin course (completed on 12/28/20) per ID recommendations (4) Osteomyelitis: Code(s): M86.9 - Osteomyelitis, unspecified Status: Acute Assessment and Plan: * bone culture (12/23/20) growing Pediococcus and Simran albicans * on primaxin * continue current therapy (5) Gross hematuria: Code(s): R31.0 - Gross hematuria Status: Acute Assessment and Plan: * Urology on the case * continue shaw catheter given immobility and sacral wound * Urine is clear and yellow now. (6) Diabetes: Code(s): E11.9 - Type 2 diabetes mellitus without complications Status: Chronic Assessment and Plan: On Accu-Cheks and sliding-scale insulin. Subjective Date/time seen: 01/17/21 15:31 Interval history: Patient is feeling okay right now. still has some dry skin. He still has some swelling Exam Narrative: General: WD/WN male in NAD Heart: normal S1 and S2; no rub Lungs: clear Abdomen: soft, nontender, nondistended, positive bowel sounds; colostomy noted . Extremities: 1+ edema - s/p left AKA and right BKA Skin: No rash or subQ nodules Objective Data Vital Signs Vital Signs: Vital Signs - 24 hr 01/16/21 15:57 01/16/21 16:00 01/16/21 20:00 Temperature 36.3 C L Pulse Rate 82 74 76 Respiratory Rate 18 Blood Pressure 119/45 L Pulse Oximetry 99 01/16/21 21:02 01/17/21 00:00 01/17/21 04:00 Temperature 36.1 C L Pulse Rate 83 89 88 Respiratory Rate 14 Blood Pressure 129/73 Pulse Oximetry 97 01/17/21 05:43 01/17/21 08:00 01/17/21 12:00 Temperature 36.7 C Pulse Rate 94 90 86 Respiratory Rate 12 Blood Pressure 137/46 L Pulse Oximetry 96 01/17/21 14:00 Temperature 36.1 C L Pulse Rate 81 Respiratory Rate 24 H Blood Pressure 130/43 L Pulse Oximetry 100 Intake/Output Intake/Output: Intake & Output 01/14/21 01/15/21 01/16/21
--- NOTE | 2021-01-17 15:31 | PM.PNNEP ---
Progress Note: A&P Assessment and Plan (1) RADHA (acute kidney injury): Code(s): N17.9 - Acute kidney failure, unspecified Status: Acute Assessment and Plan: ATN CK okay Renal u/s okay U' lytes nonprerenal most likely ATN from infection. creatinine is trending downwards. Today it is 2.0 He is still making a really good amount of urine. His good urine output may be slowing down the recovery of his kidneys but as long as it is trending down words I am good with that. His swelling comes with some morbidity including his dry skin and potential skin breakdown. Note important to continue diuretics. Likely he is responding to only a low dose of torsemide. (2) Sacral decubitus ulcer: Code(s): L89.159 - Pressure ulcer of sacral region, unspecified stage Status: Acute Assessment and Plan: complicated by osteomyelitis s/p diverting colostomy to allow for better healing local wound care continues (3) Fungemia: Code(s): B49 - Unspecified mycosis Status: Acute Assessment and Plan: as noted by blood/bone cultures Simran glabrata and coagulase negative staph growth in blood on 12/20; repeat blood cultures 12/22 negative completed micafungin course (completed on 12/28/20) per ID recommendations (4) Osteomyelitis: Code(s): M86.9 - Osteomyelitis, unspecified Status: Acute Assessment and Plan: bone culture (12/23/20) growing Pediococcus and Simran albicans on primaxin continue current therapy (5) Gross hematuria: Code(s): R31.0 - Gross hematuria Status: Acute Assessment and Plan: Urology on the case continue shaw catheter given immobility and sacral wound Urine is clear and yellow now. (6) Diabetes: Code(s): E11.9 - Type 2 diabetes mellitus without complications Status: Chronic Assessment and Plan: On Accu-Cheks and sliding-scale insulin. Subjective Date/time seen: 01/17/21 15:31 Interval history: Patient is feeling okay right now. still has some dry skin. He still has some swelling Exam Narrative: General: WD/WN male in NAD Heart: normal S1 and S2; no rub Lungs: clear Abdomen: soft, nontender, nondistended, positive bowel sounds; colostomy noted . Extremities: 1+ edema - s/p left AKA and right BKA Skin: No rash or subQ nodules Objective Data Vital Signs Vital Signs: Vital Signs - 24 hr 01/16/21 15:57 01/16/21 16:00 01/16/21 20:00 Temperature 36.3 C L Pulse Rate 82 74 76 Respiratory Rate 18 Blood Pressure 119/45 L Pulse Oximetry 99 01/16/21 21:02 01/17/21 00:00 01/17/21 04:00 Temperature 36.1 C L Pulse Rate 83 89 88 Respiratory Rate 14 Blood Pressure 129/73 Pulse Oximetry 97 01/17/21 05:43 01/17/21 08:00 01/17/21 12:00 Temperature 36.7 C Pulse Rate 94 90 86 Respiratory Rate 12 Blood Pressure 137/46 L Pulse Oximetry 96 01/17/21 14:00 Temperature 36.1 C L Pulse Rate 81 Respiratory Rate 24 H Blood Pressure 130/43 L Pulse Oximetry 100 Intake/Output Intake/Output: Intake & Output 01/14/21 01/15/21 01/16/21 01/17/21 23:59 23:59 23:59 23:59 Intake Total 1580 1840 2520 680 Output Total 3100 3650 2950 3300 [id number] -1810 -430 -2620 Meds/Results Medications: Active Medications Generic Name Dose Route Start Last Admin Trade Name Freq PRN Reason Stop Dose Admin Acetaminophen 650 mg 12/30/20 15:33 Acetaminophen 325 Mg Tablet PO Q6H PRN Mild Pain (1-3) or Fever Hydrocodone Bitart/Acetaminophen 1 tab 12/30/20 15:33 01/07/21 15:00 Hydrocodone/Acetaminophen (*Crx) 5-325 Mg Tablet PO 1 tab Q4H PRN Administration Pain Rated 4-6 Hydrocodone Bitart/Acetaminophen 1 tab 12/30/20 15:33 01/17/21 07:28 Hydrocodone/Acetaminophen (*Crx) 10-325 Mg Tablet PO 1 tab Q6H PRN Administration Pain Rated 7-10 Apixaban 5 mg 01/15/21 21:00 01/17/21 08:17 Apix
[2021-01-17] MEDS: SOD HYPOCHLORITE 1/4 STRENGTH 473 ML 1 APPLIC TOPICAL ×2 (16:59→22:27)
[2021-01-17 17:27] LABS: Glucose Point of Care 192 mg/dl (65-105)
[2021-01-17 22:15] LABS: Glucose Point of Care 223 mg/dl (65-105)
[2021-01-17] MEDS: INSULIN GLARGINE (*BKC) 100 UNITS/ML 45 UNITS SUB-Q (22:25)
[2021-01-18] VITALS (9 sets, daily range): BP systolic 128–140; BP diastolic 49–60; PULSE 86–103; RESP 18–26; TEMP 35.3–36.2; O2SAT 95–97
[2021-01-18] MEDS: TOLNAFTATE 1% POWDER 45 GM BTL 1 APPLIC TOPICAL ×3 (05:53→21:09)
[2021-01-18] MEDS: HYDROcodone/acetaminophen (*CRX) 10-325 MG TABLET 1 TAB PO (06:52)
[2021-01-18 08:00] LABS: Glucose Point of Care 194 mg/dl (65-105)
[2021-01-18] MEDS: INSULIN ASPART (*BKC) 100 UNITS/ML 8 UNITS SUB-Q ×3 (08:13→17:24)
[2021-01-18] MEDS: VANCOMYCIN ORAL 125 MG/2.5 ML SYRUP PO ×2 (08:13→21:09)
[2021-01-18] MEDS: MAGNESIUM OXIDE 400 MG TABLET PO (08:14)
[2021-01-18] MEDS: TORSEMIDE 10 MG TABLET PO (08:14)
[2021-01-18] MEDS: APIXABAN 5 MG TABLET PO ×2 (08:14→21:09)
[2021-01-18] MEDS: DOCUSATE SODIUM 100 MG CAPSULE PO ×2 (08:14→21:09)
[2021-01-18] MEDS: PANTOPRAZOLE 40 MG TABLET PO ×2 (08:14→21:09)
[2021-01-18] MEDS: SOD HYPOCHLORITE 1/4 STRENGTH 473 ML 1 APPLIC TOPICAL ×2 (08:15→21:09)
[2021-01-18 09:12] LABS: Anion Gap 5 mmol/L (8-16); Blood Urea Nitrogen 28 mg/dL (9-20); Calcium 7.8 mg/dL (8.4-10.2); Carbon Dioxide 29 mmol/L (22-30); Chloride 102 mmol/L (98-107); Estimated CRCL calculation 59 ml/min; Estimated Glomerular Filt Rate 39; Glucose 223 mg/dL (65-110); Potassium 3.7 mmol/L (3.4-5.0); Sodium 136 mmol/L (137-145)
--- NOTE | 2021-01-18 09:34 | P.PNNP_ITS ---
Progress Note: A&P Assessment and Plan (1) RADHA (acute kidney injury): Code(s): N17.9 - Acute kidney failure, unspecified Status: Acute Assessment and Plan: * ATN * CK okay * Renal u/s okay * U' lytes nonprerenal * most likely ATN from infection. * creatinine is trending downwards. Today it is 1.8 * He is still making a really good amount of urine. 4400cc yesterday. * Continue torsemide 10mg daily (2) Sacral decubitus ulcer: Code(s): L89.159 - Pressure ulcer of sacral region, unspecified stage Status: Acute Assessment and Plan: * complicated by osteomyelitis * s/p diverting colostomy to allow for better healing * local wound care continues (3) Fungemia: Code(s): B49 - Unspecified mycosis Status: Acute Assessment and Plan: * as noted by blood/bone cultures * Simran glabrata and coagulase negative staph growth in blood on 12/20; repeat blood cultures 12/22 negative * completed micafungin course (completed on 12/28/20) per ID recommendations (4) Osteomyelitis: Code(s): M86.9 - Osteomyelitis, unspecified Status: Acute Assessment and Plan: * bone culture (12/23/20) growing Pediococcus and Simran albicans * on primaxin * continue current therapy (5) Gross hematuria: Code(s): R31.0 - Gross hematuria Status: Acute Assessment and Plan: * Urology on the case * continue shaw catheter given immobility and sacral wound * Urine is clear and yellow now. (6) Diabetes: Code(s): E11.9 - Type 2 diabetes mellitus without complications Status: Chronic Assessment and Plan: On Accu-Cheks and sliding-scale insulin. Subjective Date/time seen: 01/18/21 09:34 Interval history: Patient is feeling okay right now. Labs were just drawn few minutes ago. Exam Narrative: General: WD/WN male in NAD Heart: normal S1 and S2; no rub Lungs: clear bilaterally Abdomen: soft, nontender, nondistended, positive bowel sounds; colostomy noted . Extremities: 1+ edema - s/p left AKA and right BKA Skin: No rash or subQ nodules Objective Data Vital Signs Vital Signs: Vital Signs - 24 hr 01/17/21 12:00 01/17/21 14:00 01/17/21 16:00 Temperature 36.1 C L Pulse Rate 86 81 82 Respiratory Rate 24 H Blood Pressure 130/43 L Pulse Oximetry 100 01/17/21 20:00 01/17/21 20:38 01/18/21 00:00 Temperature 36.5 C Pulse Rate 91 86 96 Respiratory Rate 16 Blood Pressure 128/52 L Pulse Oximetry 97 01/18/21 04:18 01/18/21 06:00 Temperature 36.2 C L Pulse Rate 97 103 H Respiratory Rate 20 Blood Pressure 135/60 Pulse Oximetry 97 Intake/Output Intake/Output: Intake & Output 01/15/21 01/16/21 01/17/21 01/18/21 23:59 23:59 23:59 23:59 Intake Total 1840 2520 1360 1230 Output Total 3650 2950 4400 2400 Balance -1810 -430 -3040 -1170 Meds/Results Medications: Active Medications Generic Name Dose Route Start Last Admin Trade Name José Miguel PRN Reason Stop Dose Admin Acetaminophen 650 mg 12/30/20 15:33 Acetaminophen 325 Mg Tablet PO Q6H PRN Mild Pain (1-3)
--- NOTE | 2021-01-18 09:34 | PM.PNNEP ---
Progress Note: A&P Assessment and Plan (1) RADHA (acute kidney injury): Code(s): N17.9 - Acute kidney failure, unspecified Status: Acute Assessment and Plan: ATN CK okay Renal u/s okay U' lytes nonprerenal most likely ATN from infection. creatinine is trending downwards. Today it is 1.8 He is still making a really good amount of urine. 4400cc yesterday. Continue torsemide 10mg daily (2) Sacral decubitus ulcer: Code(s): L89.159 - Pressure ulcer of sacral region, unspecified stage Status: Acute Assessment and Plan: complicated by osteomyelitis s/p diverting colostomy to allow for better healing local wound care continues (3) Fungemia: Code(s): B49 - Unspecified mycosis Status: Acute Assessment and Plan: as noted by blood/bone cultures Simran glabrata and coagulase negative staph growth in blood on 12/20; repeat blood cultures 12/22 negative completed micafungin course (completed on 12/28/20) per ID recommendations (4) Osteomyelitis: Code(s): M86.9 - Osteomyelitis, unspecified Status: Acute Assessment and Plan: bone culture (12/23/20) growing Pediococcus and Simran albicans on primaxin continue current therapy (5) Gross hematuria: Code(s): R31.0 - Gross hematuria Status: Acute Assessment and Plan: Urology on the case continue shaw catheter given immobility and sacral wound Urine is clear and yellow now. (6) Diabetes: Code(s): E11.9 - Type 2 diabetes mellitus without complications Status: Chronic Assessment and Plan: On Accu-Cheks and sliding-scale insulin. Subjective Date/time seen: 01/18/21 09:34 Interval history: Patient is feeling okay right now. Labs were just drawn few minutes ago. Exam Narrative: General: WD/WN male in NAD Heart: normal S1 and S2; no rub Lungs: clear bilaterally Abdomen: soft, nontender, nondistended, positive bowel sounds; colostomy noted . Extremities: 1+ edema - s/p left AKA and right BKA Skin: No rash or subQ nodules Objective Data Vital Signs Vital Signs: Vital Signs - 24 hr 01/17/21 12:00 01/17/21 14:00 01/17/21 16:00 Temperature 36.1 C L Pulse Rate 86 81 82 Respiratory Rate 24 H Blood Pressure 130/43 L Pulse Oximetry 100 01/17/21 20:00 01/17/21 20:38 01/18/21 00:00 Temperature 36.5 C Pulse Rate 91 86 96 Respiratory Rate 16 Blood Pressure 128/52 L Pulse Oximetry 97 01/18/21 04:18 01/18/21 06:00 Temperature 36.2 C L Pulse Rate 97 103 H Respiratory Rate 20 Blood Pressure 135/60 Pulse Oximetry 97 Intake/Output Intake/Output: Intake & Output 01/15/21 01/16/21 01/17/21 01/18/21 23:59 23:59 23:59 23:59 Intake Total 1840 2520 1360 1230 Output Total 3650 2950 4400 2400 Balance -1810 -430 -3040 -1170 Meds/Results Medications: Active Medications Generic Name Dose Route Start Last Admin Trade Name Freq PRN Reason Stop Dose Admin Acetaminophen 650 mg 12/30/20 15:33 Acetaminophen 325 Mg Tablet PO Q6H PRN Mild Pain (1-3) or Fever Hydrocodone Bitart/Acetaminophen 1 tab 12/30/20 15:33 01/07/21 15:00 Hydrocodone/Acetaminophen (*Crx) 5-325 Mg Tablet PO 1 tab Q4H PRN Administration Pain Rated 4-6 Hydrocodone Bitart/Acetaminophen 1 tab 12/30/20 15:33 01/18/21 06:52 Hydrocodone/Acetaminophen (*Crx) 10-325 Mg Tablet PO 1 tab Q6H PRN Administration Pain Rated 7-10 Apixaban 5 mg 01/15/21 21:00 01/18/21 08:14 Apixaban 5 Mg Tablet PO 5 mg Q12HR FAROOQ Administration Carvedilol 3.125 mg 01/02/21 21:00 01/06/21 11:11 Carvedilol 3.125 Mg Tablet PO 3.125 mg Q12HR FAROOQ Administration Dextrose 12.5 gm 01/18/21 05:38 Dextrose 50% 25 Gm/50 Ml Syringe IV PUSH PRN PRN Hypoglycemia Protocol Docusate Sodium 100 mg 01/17/21 09:00 01/18/21 08:14 Docusate Sodium 100 Mg Capsule PO 100 mg Q
--- NOTE | 2021-01-18 10:18 | P.PNIM_ITS ---
Progress Note: A&P Assessment and Plan (1) RADHA (acute kidney injury): Code(s): N17.9 - Acute kidney failure, unspecified Status: Acute Assessment and Plan: Patietn has developed RADHA. Possibly prerenal versus Toxic ATN vs AIN due to multiple implicated medications, infection associated GN, etc. Admission creatinine 0.8. Noted rising Cr to 3.5. Renal ultrasound 01/02 without hydronephrosis or structural abnormalities. CK<20. Urine eos rare. Rosa 69 with FENa 4.15% to suggest AIN. He was switched from Zosyn to imipenem. Nephrology consulted and appreciate their input. Surgery note reviewed. CT A/P cancelled because patient too big for scanner. Patient was becoming edematous so diuretics started. Cr better at 2.1 and slowly improving; tolerating the diuretics with excellent UOP. Monitor closely. (2) Anemia: Code(s): D64.9 - Anemia, unspecified Status: Acute Assessment and Plan: Hgb 9.3 on admission. Hemoglobin dropped to the 7 range but was stable. Acute blood loss anemia related to recent surgeries and gross hematuria. Patient has underlying chronic anemia related to his multiple chronic medical problems. B12, folate and iron studies noted. Hgb 6.9 today but not much different from the past few days. Transfuion ordered. He is back on Eliquis but no evidence of acute blood loss. Continue to follow. (3) Chronic atrial fibrillation with RVR: Code(s): I48.20 - Chronic atrial fibrillation, unspecified Status: Acute Assessment and Plan: Patient with bradycardia but improved off the Digoxin and lower dose Coreg. Then he was having prolonged pauses up to 4.5sec so Coreg stopped (last dose was 01/06 at 11:11am). Could be from sleep apnea but apnea link showing AHI 8 and RI 8.3 but he states he was awake for most of it. Cardiology following. Tele review showing no significantly prolonged pauses. Eliquis resumed. Continue tele. (4) Fungemia: Code(s): B49 - Unspecified mycosis Status: Acute Assessment and Plan: Simran glabrata and coagulase negative staph growth in blood on 12/20. Repeat blood cultures 12/22 are negative Completed micafungin through December 28, per ID recommendation. Vanco IV stopped 01/02. PICC line removed but unable to be replaced. Central line ordered but probably doesn't need central line now. (5) Osteomyelitis: Code(s): M86.9 - Osteomyelitis, unspecified Status: Acute Assessment and Plan: Concern for osteomyelitis based on the fact that physical exam shows sacral ulcer is palpable to bone Was on vancomycin and Zosyn as ordered by Infectious Disease Service Consulted surgery and he underwent debridement of sacral wound and right amputation ulcer 12/23. Bone Cx 12/23 growing Pediococcus and Simran albicans. He later underwent open diverting end colostomy to prevent decub ulcer inoculation 12/30. Abdominal surgical site healing well and colostomy working well. Unable to get repeat CT A/P due to his size. Pt seen by wound team. Currently on Primaxin now and ID is aware and agreed. As above. Continue wound changes at bedside. Plan for IV abx through 01/18. Stoma noted and patient to be seen by wound care about stoma. (6) Gross hematuria: Code(s): R31.0 - Gross hematuria Status: Acute Assessment and Plan: Has undergone irrigation of Abarca with Urology. Continue exterminator helper termite catheter as pt has bilateral LE amputations and decub ulcer. Catheter change monthly recommended. Urology felt that it was okay to resume anticoagulation. (7) Diabetes: Code(s): E11.9 - Type 2 diabet
[2021-01-18 12:06] LABS: Glucose Point of Care 196 mg/dl (65-105)
[2021-01-18] MEDS: POVIDONE-IODINE 10% OINT 30 GM TUBE 1 APPLIC TOPICAL (14:15)
[2021-01-18] MEDS: ACETAMINOPHEN 325 MG TABLET 650 MG PO (15:20)
[2021-01-18 16:58] LABS: Glucose Point of Care 243 mg/dl (65-105)
[2021-01-18] MEDS: INSULIN ASPART (*BKC) 100 UNITS/ML SUB-Q (17:24)
[2021-01-18 21:04] LABS: Glucose Point of Care 242 mg/dl (65-105)
[2021-01-18] MEDS: INSULIN GLARGINE (*BKC) 100 UNITS/ML 45 UNITS SUB-Q (21:09)
[2021-01-18] MEDS: ONDANSETRON INJ 4 MG/2 ML VIAL IV PUSH (21:14)
[2021-01-19] VITALS (7 sets, daily range): BP systolic 126–141; BP diastolic 41–66; PULSE 85–99; RESP 18–20; TEMP 36.6–37; O2SAT 96–97
[2021-01-19] MEDS: ONDANSETRON INJ 4 MG/2 ML VIAL IV PUSH ×2 (03:21→10:07)
[2021-01-19 05:36] LABS: Hematocrit 25.3 % (42.0-52.0); Hemoglobin 7.7 g/dL (14.0-18.0); Mean Corpuscular HGB Conc 30.4 g/dl (32-36); Mean Corpuscular Hemoglobin 27.5 pg (26-34); Mean Corpuscular Volume 90.4 fl (80-100); Mean Platelet Volume 8.3 fl (7.4-10.4); Platelet Count Result 204 k/mm3 (150-375); Red Cell Distribution Width 18.8 % (11.5-14.5); White Blood Count 14.2 K/mm3 (4.5-10.0)
[2021-01-19 05:51] LABS: Albumin Level 2.3 g/dL (3.5-5.1); Anion Gap 6 mmol/L (8-16); Blood Urea Nitrogen 25 mg/dL (9-20); Calcium 7.7 mg/dL (8.4-10.2); Carbon Dioxide 28 mmol/L (22-30); Chloride 102 mmol/L (98-107); Estimated CRCL calculation 66 ml/min; Estimated Glomerular Filt Rate 44; Glucose 195 mg/dL (65-110); Phosphorus 4.1 mg/dL (2.5-4.5); Potassium 3.6 mmol/L (3.4-5.0); Sodium 136 mmol/L (137-145)
[2021-01-19] MEDS: TOLNAFTATE 1% POWDER 45 GM BTL 1 APPLIC TOPICAL ×2 (06:08→15:49)
[2021-01-19 08:29] LABS: Glucose Point of Care 170 mg/dl (65-105)
[2021-01-19] MEDS: TORSEMIDE 10 MG TABLET PO (09:51)
[2021-01-19] MEDS: INSULIN ASPART (*BKC) 100 UNITS/ML 8 UNITS SUB-Q ×2 (09:51→13:19)
[2021-01-19] MEDS: PANTOPRAZOLE 40 MG TABLET PO (09:51)
[2021-01-19] MEDS: MAGNESIUM OXIDE 400 MG TABLET PO (09:51)
[2021-01-19] MEDS: APIXABAN 5 MG TABLET PO (09:51)
[2021-01-19] MEDS: DOCUSATE SODIUM 100 MG CAPSULE PO (09:51)
[2021-01-19] MEDS: SOD HYPOCHLORITE 1/4 STRENGTH 473 ML 1 APPLIC TOPICAL (09:52)
[2021-01-19] MEDS: POVIDONE-IODINE 10% OINT 30 GM TUBE 1 APPLIC TOPICAL (09:53)
--- NOTE | 2021-01-19 10:28 | PM.DS ---
DS: Admitting Diagnosis Discharge Date 01/19/21 Admitting Diagnosis Hematuria DS: Discharge Diagnosis Discharge Diagnosis (1) Fungemia: Code(s): B49 - Unspecified mycosis Status: Acute Assessment and Plan: Simran glabrata and coagulase negative staph growth in blood on 12/20. Repeat blood cultures 12/22 were negative. Almo realted to sacral ulcer. ID consulted. He completed micafungin through December 28, per ID recommendation. Vanco IV stopped 01/02. PICC line was removed as well and unable to be replaced. (2) Osteomyelitis: Code(s): M86.9 - Osteomyelitis, unspecified Status: Acute Assessment and Plan: Concern for osteomyelitis based on the fact that physical exam shows sacral ulcer is palpable to bone. He was on vancomycin and Zosyn as ordered by Infectious Disease Service. Consulted surgery and he underwent debridement of sacral wound and right amputation ulcer 12/23. Bone Cx 12/23 growing Pediococcus and Simran albicans. He later underwent open diverting end colostomy to prevent decub ulcer inoculation 12/30. Abdominal surgical site healed well and colostomy working well. Unable to get repeat CT A/P due to his size. Pt seen by wound team. He completed Vanco and Zosyn switched to Primaxin; ID was aware and agreed. He completed his course of Promaxin as well. He had a wound vac but changed to dressing changes now. (3) RADHA (acute kidney injury): Code(s): N17.9 - Acute kidney failure, unspecified Status: Acute Assessment and Plan: Patient developed RADHA during his hospital course. Admission creatinine 0.8. Noted rising Cr to 3.5. Renal ultrasound 01/02 without hydronephrosis or structural abnormalities. Total CK<20. Urine eos rare. Rosa 69 with FENa 4.15% to suggest AIN. He was switched from Zosyn to imipenem. Nephrology consulted and appreciate their input. Surgery note reviewed. CT A/P cancelled because patient too big for scanner. Patient was becoming edematous so diuretics started once Cr was trending down. Cr better at 1.6 at time of discharge. (4) Anemia: Code(s): D64.9 - Anemia, unspecified Status: Acute Assessment and Plan: Hgb 9.3 on admission. Hemoglobin dropped to the 7 range and remained stable. Acute blood loss anemia related to recent surgeries and gross hematuria. Patient has underlying chronic anemia related to his multiple chronic medical problems. B12, folate and iron studies noted. No evidence of acute blood loss. He was off Eliquis but this was able to be resumed. (5) Chronic atrial fibrillation with RVR: Code(s): I48.20 - Chronic atrial fibrillation, unspecified Status: Acute Assessment and Plan: Roney was on Digoxin and Coreg. Patient became bradycardic but improved off the Digoxin and lower dose Coreg. Then he was having prolonged pauses up to 4.5sec so Coreg stopped (last dose was on 01/06). Could be from sleep apnea but apnea link showing AHI 8 and RI 8.3 but he states he was awake for most of it. Cardiology re-consulted. He remained on Tele and he did not have any further pauses. Eliquis able to be restarted. (6) Gross hematuria: Code(s): R31.0 - Gross hematuria Status: Acute Assessment and Plan: He presented with gross heamtuira. He underwent bladder irrigation by Urology. Urine clear. Plan to continue manager long term care catheter as pt has bilateral LE amputations, upper extremity paralysis and decub ulcer. Catheter to be changed monthly recommended. Urology felt that it was okay to resume anticoagulation. (7) Diabetes: Code(s): E11.9 - Type 2 diabetes mellitus without complications Status: Chronic Assessment and Plan: A1c 8.6 in October. The patient's blood glucose was monitored closely with Accuchecks with sliding scale protocol. Hypoglycemia protocol was available as needed. Treated with Lantus and mealtime Novology. (8) Functional quadriplegia: C
--- NOTE | 2021-01-19 10:58 | PM.PNGS ---
Progress Note: A&P Assessment and Plan (1) Sacral decubitus ulcer: Code(s): L89.159 - Pressure ulcer of sacral region, unspecified stage Status: Acute Assessment and Plan: Plan for discharge to [facility] today. Continue local wound care with Dakins moistened gauze dressing changes BID. Follow wound care at SNF. Follow-up with our service as needed. S/p diverting colostomy on 12/30, functioning well. Midline incision marisol removed today. Continue routine colostomy care on discharge. (2) Osteomyelitis: Code(s): M86.9 - Osteomyelitis, unspecified Status: Acute Assessment and Plan: IV abx course per ID completed while inpatient. (3) Functional quadriplegia: Code(s): R53.2 - Functional quadriplegia Status: Acute Additional Plan I have discussed the plan with Dr. Houston. Subjective Subjective Date/Time Seen: 01/19/21 10:58 Patient reports: no new complaints, bowel movement (+ostomy stool/gas in bag) and afebrile Interval history: Patient seen and examined. Plan for discharge to [facility] today. No new complaints. Exam GI: Other: Midline incision clean and dry, no erythema or drainage. All marisol removed at the bedside and steri strips applied. Colostomy with soft kirk stool and gas in bag, functioning well, circumferential edges of the stoma are dark/dusky with remaining area of the stoma pink/moist. Urinary Catheter: Urinary Catheter: patent and draining and urine cloudy Skin: Other: Right stump dressing clean, dry, and intact. Sacral dressing unable to assess with patient lying supine in bed and unable to assist in turning. Extrem: General: other (Right BKA, left AKA) Psych: Mental Status: mental status grossly normal Insight: Fair insight present (Psych) Judgement: Fair judgement present (Psych) Objective Data Vital Signs Vital Signs: Vital Signs - 24 hr 01/18/21 12:00 01/18/21 14:00 01/18/21 16:00 Temperature 95.5 F L Pulse Rate 88 97 86 Respiratory Rate 26 H Blood Pressure 128/49 L Pulse Oximetry 96 01/18/21 20:00 01/18/21 20:35 01/19/21 00:00 Temperature 97.1 F L Pulse Rate 87 93 91 Respiratory Rate 18 Blood Pressure 140/54 L Pulse Oximetry 95 01/19/21 04:00 01/19/21 05:51 Temperature 97.9 F Pulse Rate 90 85 Respiratory Rate 20 Blood Pressure 141/66 H Pulse Oximetry 97 Intake/Output Intake/Output: Intake & Output 01/16/21 01/17/21 01/18/21 01/19/21 23:59 23:59 23:59 23:59 Intake Total 2520 1360 2580 700 Output Total 2950 4400 2400 2500 Balance -430 -3040 180 -1800 Meds/Results Medications: Active Medications Generic Name Dose Route Start Last Admin Trade Name Freq PRN Reason Stop Dose Admin Acetaminophen 650 mg 12/30/20 15:33 01/18/21 15:20 Acetaminophen 325 Mg Tablet PO 650 mg Q6H PRN Administration Mild Pain (1-3) or Fever Apixaban 5 mg 01/15/21 21:00 01/19/21 09:51 Apixaban 5 Mg Tablet PO 5 mg Q12HR FAROOQ Administration Carvedilol 3.125 mg 01/02/21 21:00 01/06/21 11:11 Carvedilol 3.125 Mg Tablet PO 3.125 mg Q12HR FAROOQ Administration Dextrose 12.5 gm 01/18/21 05:38 Dextrose 50% 25 Gm/50 Ml Syringe IV PUSH PRN PRN Hypoglycemia Protocol Docusate Sodium 100 mg 01/17/21 09:00 01/19/21 09:51 Docusate Sodium 100 Mg Capsule PO 100 mg Q12HR FAROOQ Administration Ergocalciferol 50,000 unit 12/23/20 09:00 01/13/21 08:22 Ergocalciferol 50,000 Unit Capsule FEED TUBE 50,000 unit WEEKLY FAROOQ Administration Glucagon 1 mg 01/18/21 05:37 Glucagon For Inj 1 Mg Vial IM PRN PRN Hypoglycemia Protocol Glucose 15 gm 01/18/21 05:38 Glucose Oral Gel 15 Gm Of Glucse In 37.5 Gm Tube PO PRN PRN Hypoglycemia Protocol Dextrose 1,000 mls @ 100 mls/hr 01/18/21 05:38 Dextrose 5% 1,000 Ml IVPB PRN PRN Hypoglycemia Protocol Insulin Aspart 3 - 6 units 12/20/20 18:00 01/19/21 09:43 Insulin
--- NOTE | 2021-01-19 11:58 | PCNFU ---
Nutrition Follow-Up Complete: Inadequate oral intake related to diet order as evidenced by clear liquid. goal: Patient to meet estimated nutritional needs. Patient has met current goal. No new goal. Pt current nutrition is DBCC with Glucerna shakes BID. Last recorded weight is 154 kg, up from 140.2 kg on admit. Bowel Motility: colostomy Labs Reviewed:GFR 44, BUN 25,Cr 1.6,Glu 195,Alb 2.3,Hct 25.3,Hgb 7.7 Meds Noted:Eliquis, Colace, Lantus, Zofran,Demadex Additional Notes: Patient seen today for nutrition follow up. Patient continues to consume greater than 75% of meals. Diet supplements are also being consumed providing an additional 220 kcals and 10 gms protein. Skin: stage IV-sacrum. Plans for discharge today. Monitoring: Follow up every 7 days.
[2021-01-19 13:25] LABS: Glucose Point of Care 191 mg/dl (65-105)
== END 2021-01-19 17:10 | DRG 853 ==
LOC: ANHED 20:09 → ANHIMU 12-20 02:38 → ANH3MED 12-25 12:00 → ANHIMU 01-20 13:51
PROVIDERS: Family Medicine; Hospitalist; Internal Medicine; Internal Medicine Infectious Disease; Internal Medicine Nephrology; Surgery; Admitting Provider Internal Medicine; Emergency Provider Emergency Medicine; PCP Internal Medicine; Visit Provider Internal Medicine
PROC: 0JBN0ZZ Excision of Right Lower Leg Subcutaneous Tissue and Fascia, Open Approach (ICD-10-PCS; CPT 46040; principal; 2020-12-23 13:30)
PROC: 0JBN0ZZ Excision of Right Lower Leg Subcutaneous Tissue and Fascia, Open Approach (ICD-10-PCS; 2020-12-23 13:30)
PROC: 0D1N0Z4 Bypass Sigmoid Colon to Cutaneous, Open Approach (ICD-10-PCS; CPT 49000; principal; 2020-12-30 12:00)
DX: B49 Unspecified mycosis (principal); R53.2 Functional quadriplegia; N17.0 Acute kidney failure with tubular necrosis; S37.30XA Unspecified injury of urethra, initial encounter; A04.72 Enterocolitis due to Clostridium difficile, not specified as recurrent; N39.0 Urinary tract infection, site not specified; E87.1 Hypo-osmolality and hyponatremia; I48.20 Chronic atrial fibrillation, unspecified; T87.43 Infection of amputation stump, right lower extremity; Z68.43 Body mass index [BMI] 50.0-59.9, adult; M86.8X8 Other osteomyelitis, other site; D62 Acute posthemorrhagic anemia; R31.0 Gross hematuria; Z79.01 Long term (current) use of anticoagulants; E11.21 Type 2 diabetes mellitus with diabetic nephropathy; Z79.4 Long term (current) use of insulin; E66.01 Morbid (severe) obesity due to excess calories; G47.33 Obstructive sleep apnea (adult) (pediatric); Z91.19 Patient's noncompliance with other medical treatment and regimen; E11.51 Type 2 diabetes mellitus with diabetic peripheral angiopathy without gangrene; E78.5 Hyperlipidemia, unspecified; Z89.612 Acquired absence of left leg above knee; Y83.5 Amputation of limb(s) as the cause of abnormal reaction of the patient, or of later complication, without mention of misadventure at the time of the procedure; Z93.1 Gastrostomy status; L89.019 Pressure ulcer of right elbow, unspecified stage; Y84.6 Urinary catheterization as the cause of abnormal reaction of the patient, or of later complication, without mention of misadventure at the time of the procedure; Y73.1 Therapeutic (nonsurgical) and rehabilitative gastroenterology and urology devices associated with adverse incidents; Y92.129 Unspecified place in nursing home as the place of occurrence of the external cause; Y93.9 Activity, unspecified; Y99.9 Unspecified external cause status; L89.150 Pressure ulcer of sacral region, unstageable; D63.8 Anemia in other chronic diseases classified elsewhere; R33.9 Retention of urine, unspecified
CPT/HCPCS: 36415; 36430; 71045; 74018; 74176; 76775; 80048; 80053; 80069; 80202; 81001; 82436; 82550; 82565; 82570; 82607; 82728; 82746; 82948; 83540; 83550; 83605; 83735; 83935; 84100; 84300; 85014; 85018; 85025; 85027; 85610; 85730; 85999; 86140; 86850; 86900; 86901; 86920; 87040; 87070; 87075; 87077; 87086; 87106; 87186; 87205; 94762; 96361; 96365; 96366; 96367; 96368; 96376; 97110; 97162; 97167; 97530; 97535; 99285; A9270; C8929; G0378; J0131; J0330; J0690; J0743; J1170; J1450; J1644; J1741; J1815; J1956; J2248; J2250; J2370; J2405; J2543; J2704; J2710; J3010; J3370; J3475; J3480; J7030; J7040; J7120; P9016; Q9957

== ENCOUNTER 2021-01-20 01:50 | Inpatient (IN) | payer MEDICARE, OTHER, SELFPAY ==
[2021-01-20] VITALS (27 sets, daily range): BP systolic 122–207; BP diastolic 42–112; PULSE 84–150; RESP 14–44; TEMP 36.8–37.4; O2SAT 94–100; BMI 48.3
--- NOTE | ~2021-01-20 | XR_ITS ---
EXAMINATION: XR chest 1V portable DATE: 01/20/2021 06:16 INDICATION: Atrial fibrillation with rapid ventricular response TECHNIQUE: frontal view of the chest was obtained. COMPARISON: Chest radiograph dated 12/19/2020 FINDINGS: New bilateral perihilar opacities. No pleural effusion or pneumothorax. The cardiomediastinal silhoue tte is normal. There are bridging osteophytes at multiple levels in the spine, consistent with diffus e idiopathic skeletal hyperostosis (DISH). IMPRESSION: 1. New bilateral perihilar opacities most likely pulmonary edema with differential including pneumoni a. Reviewed, dictated and finalized at location A. IMPRESSION: 1. New bilateral perihilar opacities most likely pulmonary edema with different ial including pneumonia.
--- NOTE | ~2021-01-20 | XR_ITS ---
EXAMINATION: XR abdomen obstructive series DATE: 01/20/2021 19:07 INDICATION: Nausea and vomiting TECHNIQUE: Upright and supine views of the abdomen were obtained. COMPARISON: 12/21/2020 FINDINGS: There is no free intraperitoneal gas or evidence of bowel obstruction. A gastrostomy is not ed. The bowel gas pattern is non specific. IMPRESSION: 1. Nonobstructive bowel gas pattern. Reviewed, dictated and finalized at location A.
--- NOTE | ~2021-01-20 | XR_ITS ---
EXAMINATION: XR fluoroscopy no charge EXAM DATE: 01/20/2021 14:38 INDICATION: Blood clot evacuation. TECHNIQUE: Fluoroscopy used during bladder blood clot evacuation performed by Dr. Gerhard elizabeth MD. Radiologist was not present for the imaging or procedure. Total fluoroscopic time of 13 se conds. The DAP for this procedure was 373 radcm2. A total of 1 images sent to PACS from the exam (t he dose report). FINDINGS: Dose for procedure as above. Correlate with procedure note. IMPRESSION: Fluoroscopy used during cystoscopy, clot evacuation. Reviewed, dictated and finalized at location A.
--- NOTE | 2021-01-20 02:22 | ECG_ITS ---
Measurements Intervals [place] Rate: 140 P: [place]: 0 QRS: -20 QRSD: 89 T: 120 QT: 295 QTc: 450 Interpretive Statements ATRIAL FIBRILLATION WITH RAPID VENTRICULAR RESPONSE LOW QRS VOLTAGE IN LIMB LEADS BORDERLINE R WAVE PROGRESSION, ANTERIOR LEADS BORDERLINE ST-T WAVE ABNORMALITY- ANT/HIGH LAT LEADS BASELINE ARTIFACT- V2-V6 ABNORMAL ECG Electronically Signed On 01-20-2021 6:38:59 CDT by Jayjay Barnes D.O.
--- NOTE | 2021-01-20 02:27 | ED.GENADULT ---
HPI - General Adult General Chief complaint: Urogenital-Male Stated complaint: hematuria Time Seen by Provider: 01/20/21 01:56 Source: patient Mode of arrival: ambulatory Limitations: no limitations History of Present Illness HPI narrative: This is a 60 year old male with history of atrial fibrillation, morbid obesity, functional quadriplegic, DM who presents from retirement for evaluation of gross hematuria. Patient was recently admitted to hospital for multiple issues including gross hematuria, sepsis, afib with RVR and he was discharged from hospital yesterday. Patient reports his shaw catheter was changed prior to discharge and at that time there was small amount of blood in his shaw. He states once he arrived to his rehabilitation facility he developed more blood in his catheter so they attempted to change shaw twice. Patient developed worsening gross hematuria, penile pain and passing clots. Patient is on eliquis for afib with RVR . He denies abdominal pain , nausea, vomiting, chest pain or shortness of breath Patient has been found to be in afib with RVR in ER [facility]. He was taken off digoxin and carvedilol during his hospital stay due to bradycardia. Related Data Home Medications Medication Instructions Recorded Confirmed cholecalciferol (vitamin D3) 1,250 mcg FEEDING TUBE WEEKLY 12/20/20 12/20/20 miconazole nitrate 1 applic TOPICAL TID 12/20/20 12/20/20 polyethylene glycol 3350 [Miralax] 17 g PO DAILY PRN 12/20/20 12/20/20 Allergies Allergy/AdvReac Type Severity Reaction Status Date / Time meperidine AdvReac Mild Nausea Verified 01/20/21 02:20 Review of Systems Review of Systems: All systems reviewed & are unremarkable except as noted in HPI and below PMFSH Past Medical History Medical History Atrial fibrillation On chronic anticoagulation with Eliquis C. difficile colitis Chronic kidney disease, stage 3 With history of temporary dialysis in the past. Most recently November 2020 Diabetes mellitus type 2 in obese Diabetic nephropathy Hands Diastolic dysfunction Last echocardiogram March 2018 demonstrated normal EF of 65-70 with moderate LVH and severe left atrial enlargement GI bleed HTN (hypertension), malignant Hyperlipidemia Metabolic acidosis Morbid obesity Obstructive sleep apnea treated with BiPAP patient is noncompliant with his BiPAP Peripheral vascular disease Surgical History Surgical History Gastrointestinal tube in situ History of appendectomy History of bilateral carpal tunnel release History of left above knee amputation History of right below knee amputation History of tonsillectomy and adenoidectomy Family History Family History Sibling Lung cancer Sister Hypertension Brain cancer Father Diabetes mellitus Coronary artery disease Hypertension Mother Acute myocardial infarction Other Family history of arthritis Social History Social History Social History: The patient lived with the brother who is an over the road straight truck driver who is rarely home until late October 2020 at which time he was discharged to a longterm facility. Primary care physician: Dr. Beltran Reyes Code status: DNR/DNI Surrogate decision maker: Brother Smoking status: Never smoker Alcohol intake: never Alcohol use details: The patient only uses minimal alcohol on occasion. Substance use: never Substance use type: does not use Additional living arrangements comments: He owns his own house but his brother lives with him and helps him when needed. However his brother is an [id number] straight truck driver and is rarely home. 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
--- NOTE | 2021-01-20 02:45 | PC.NURSE ---
CIARA Hines 10% uroget for insertion of catheter
[2021-01-20] MEDS: LIDOCAINE HCL 2% GEL UROJET 10 ML PKG (02:46)
--- NOTE | 2021-01-20 03:00 | PC.NURSE ---
attempted to insert 3 way urinary catheter per EDP Flora. when advancing the catheter, the catheter would only advance senior care. bleeding at the urethra started. EDP aware and states to take out catheter and she will call urology. urology to come assess pt.
[2021-01-20] MEDS: dilTIAZem HCl INJ 25 MG/5 ML VIAL 10 MG IV PUSH (03:39)
[2021-01-20 03:49] LABS: Basophils Absolute Auto 0.1 K/mm3 (0.0-0.1); Basophils Percent Auto 0.5 % (0.2-1.2); Eosinophils Absolute Auto 0.1 K/mm3 (0-0.3); Eosinophils Percent Auto 0.6 % (0-4.4); Hematocrit 27.1 % (42.0-52.0); Hemoglobin 8.3 g/dL (14.0-18.0); Immature Granulocyte Absolute 1.07 K/mm3 (0.00-0.031); Immature Granulocyte Percent A 4.7 % (0-0.5); Lymphocytes Absolute Auto 1.07 K/mm3 (0.9-3.2); Lymphocytes Percent Auto 4.7 % (18.3-44.2); Mean Corpuscular HGB Conc 30.6 g/dl (32-36); Mean Corpuscular Hemoglobin 27.7 pg (26-34); Mean Corpuscular Volume 90.3 fl (80-100); Mean Platelet Volume 8.7 fl (7.4-10.4); Monocytes Absolute Auto 1.5 K/mm3 (0.1-0.6); Monocytes Percent Auto 6.5 % (2.6-8.5); Neutrophils Absolute Auto 19.1 K/mm3 (1.3-6.7); Nucleated Red Blood Cells Perc 0.1 % (0.0-0.2); Platelet Count Result 288 k/mm3 (150-375); Red Cell Distribution Width 18.6 % (11.5-14.5)
[2021-01-20 04:03] LABS: Alanine Aminotransferase 6 U/L (4-50); Albumin Level 2.7 g/dL (3.5-5.1); Alkaline Phosphatase 92 U/L (38-126); Anion Gap 11 mmol/L (8-16); Aspartate Amino Transferase 14 U/L (17-59); Bilirubin,Total 0.4 mg/dL (0.2-1.3); Blood Urea Nitrogen 25 mg/dL (9-20); Carbon Dioxide 24 mmol/L (22-30); Chloride 99 mmol/L (98-107); Estimated Glomerular Filt Rate 44; Glucose 308 mg/dL (65-110); Potassium 3.8 mmol/L (3.4-5.0); Sodium 134 mmol/L (137-145)
[2021-01-20] MEDS: HYDROmorphone HCL INJ (*CRX) 1 MG/ML SYR 0.5 MG IV PUSH (04:10)
[2021-01-20] MEDS: ONDANSETRON INJ 4 MG/2 ML VIAL IV PUSH ×3 (04:11→18:32)
[2021-01-20 04:12] LABS: Anisocytosis 1+ (NORMAL); Platelet Estimate Adequate (Adequate)
[2021-01-20 04:14] LABS: INR 1.4; Prothrombin Time 16.8 Seconds (11.1-14.7)
[2021-01-20 04:15] LABS: Partial Thromboplastin Time 43.3 SECONDS (22.3-36.8)
[2021-01-20 05:27] LABS: Alveolar/Arterial O2 Gradient 52.8 mmHg; Base Excess ABG 1.8 mEq/l (+/-2.0); Carboxyhemoglobin 0.2 % THb (0-2.0); Fractional Inspired Oxygen 21 %; HCO3 ABG 21.3 mEq/l (22.0-26.0); Methemoglobin ABG 0.5 %THb (0-1.5); Oxygen Content ABG 12.3 %vol (16.0-22.0); Oxygen Saturation ABG 97.5 % (95.0-100.0); Oxyhemoglobin 94.6 % THb (90.0-100.0); PO2 ABG 74.2 mmHg (80.0-100.0); PO2 FiO2 Ratio Arterial Blood 3.53 %; Reduced Hemoglobin 4.7 %THb (0-5.0); Total Hemoglobin 9.2 g/dL (12.0-18.0)
[2021-01-20 05:29] LABS: pH ABG 7.668 (7.350-7.450)
[2021-01-20 05:30] LABS: Device ROOM AIR; Modified Allen's Test Pass; Site Drawn RIGHT RADIAL
[2021-01-20 05:55] LABS: Lactic Acid Reflex 2.3 mmol/L (0.7-2.1)
[2021-01-20] MEDS: METOPROLOL TARTRATE INJ 5 MG/5 ML VIAL IV PUSH (06:57)
--- NOTE | 2021-01-20 07:15 | PC.NURSE ---
Urology at bedside to place catheter. Tolerated procedure well. 700 ml bloody urine drained from catheter.
--- NOTE | 2021-01-20 07:45 | PC.NURSE ---
Coude catheter placed by urology. Tolerated procedure well.
[2021-01-20 08:41] LABS: Reflex Lactic Acid Yes or No Add Lactic
--- NOTE | 2021-01-20 09:05 | PC.NURSE ---
This patient, Lester Nguễyn, was admitted to IMU Room 206-01. Patient/family oriented to hospital policies and general routines including ID bracelet, bed and alarms, visiting hours, pain management, procedures, bathroom and other care routines, personal items, smoking policy, room service/diet, and visiting hours. Information on how to activate the Rapid Response Team has been discussed. Patient/Family are encouraged to report perceived risks to care and to ask questions if they do not understand what they are told or what they should do.
[2021-01-20 10:12] LABS: Lactic Acid 1.8 mmol/L (0.7-2.1)
--- NOTE | 2021-01-20 10:44 | PM.IMHP ---
H&P: HPI History of Present Illness Date/Time: 01/20/21 10:44 Chief Complaint: Gross hematuria Narrative: 60yo male who is a functional quadriplegic with bilateral LE amputations, CKD, and cAFib presents to the ED for gross hematuria. Patient had a prolonged hospital course for fungemia and bacteremia from osteomyelitis from a sacral wound. He also had an episode of hematuria early in that hospital course requiring bladder irrigation with clearance of the hematuria but he did not have a cystoscopy. He has a diverting colostomy placed to help with wound healing. He has AFib/RVR and this improved but then developed bradycardia with long cardiac pauses so all rate-controlling agents stopped. Toward the latter part of his hospital course, his Eliquis was resumed. He completed his abx regiment prior to discharge. His Abarca was changed out on the day of discharge (01/19) and only a small amount of blood noted with Abarca exchange; no issues with replacing Abarca per RN. He was discharge to SNF on 01/19 Once he arrived at the SNF, there was noted to be gross hematuria with clot. The facility RN attempted to change the Abarca twice. Patient developed worsening gross hematuria. The Abarca was unable to placed. Patient could not void. He developed penile and abd pain and thus was sent to the ED for evaluation. 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 HR was elevated to as high as 150. He denies chest pain, cough, SOB, palpitations, fever, chills, headaches, vision changes, hearing loss. He was having nausea and vomiting in the ED. Patient was treated with Zofran, narcotics and antibiotics. Diltiazem IV x1 was given for the tachycardia and he was placed on Diltiazem drip. Urology came in to place Abarca by bedside cystoscopy. Patient was admitted for further care Review of Systems Review of Systems: All systems reviewed & are unremarkable except as noted in HPI and below PMFSH Past Medical History Medical History Atrial fibrillation On chronic anticoagulation with Eliquis C. difficile colitis Chronic kidney disease, stage 3 With history of temporary dialysis in the past. Most recently November 2020 Diabetes mellitus type 2 in obese Diabetic nephropathy Hands Diastolic dysfunction Last echocardiogram March 2018 demonstrated normal EF of 65-70 with moderate LVH and severe left atrial enlargement GI bleed HTN (hypertension), malignant Hyperlipidemia Metabolic acidosis Morbid obesity Obstructive sleep apnea treated with BiPAP patient is noncompliant with his BiPAP Peripheral vascular disease Surgical History Surgical History Gastrointestinal tube in situ History of appendectomy History of bilateral carpal tunnel release History of left above knee amputation History of right below knee amputation History of tonsillectomy and adenoidectomy Family History Family History Sibling Lung cancer Sister Hypertension Brain cancer Father Diabetes mellitus Coronary artery disease Hypertension Mother Acute myocardial infarction Other Family history of arthritis Social History Social History Social History: The patient lived with the brother who is an over the road cement truck driver who is rarely home until late October 2020 at which time he was discharged to a residential facility. Primary care physician: Dr. Beltran Reyes Code status: DNR/DNI Surrogate decision maker: Brother Smoking status: Never smoker Alcohol intake: never Alcohol use details: The patient only uses minimal alcohol on occasion. Substance use: never Substance use type: does not use Additional living arrangements comments: He
[2021-01-20 12:19] LABS: Hematocrit 23.3 % (42.0-52.0); Hemoglobin 7.2 g/dL (14.0-18.0)
[2021-01-20 12:32] LABS: Glucose Point of Care 368 mg/dl (65-105)
[2021-01-20 12:32] LABS: Glucose Point of Care 363 mg/dl (65-105)
--- NOTE | 2021-01-20 12:55 | WPDHPUPDATE1 ---
History and Physical Update Update Date/Time: 01/20/21 12:55 History and Physical has been reviewed, including an updated exam of the patient. There are NO changes in the patient's condition. Risks, benefits, and alternatives have been discussed and questions answered. Patient agrees to proceed with procedure. Proceed with cysto with clot evacuation
--- NOTE | 2021-01-20 13:12 | WPDANESEPPF ---
Anes - Initial Pre Proc Eval Procedure: Operation Date: 01/20/21 13:30 Proposed Procedures p Cystoscopy, Evacuation Bladder Clots - Gerhard Figueroa MD Date/Time: 01/20/21 13:12 Surgeon: Marielle Moore DO Pre Op Diagnosis: gross hematuria,urinary retention,afib with rvr Patient Data Age: 60 Gender: M Height: 1.75 m Weight: 148.5 kg Last Vital Signs Temp 98.7 F 01/20/21 09:05 Pulse 117 H 01/20/21 11:09 Resp 18 01/20/21 09:05 BP 143/42 H 01/20/21 09:05 Pulse Ox 100 01/20/21 09:05 Allergies Allergy/AdvReac Type Severity Reaction Status Date / Time meperidine AdvReac Mild Nausea Verified 01/20/21 13:18 Home Medications Medication Instructions Recorded Confirmed Type Mepilex #0 ea 11/20/20 12/20/20 Rx Mepilex #0 ea 11/20/20 12/20/20 Rx pantoprazole 40 mg PO Q12HR #0 tablet 11/20/20 01/20/21 Rx cholecalciferol (vitamin D3) 1,250 mcg FEEDING TUBE WEEKLY 12/20/20 01/20/21 History miconazole nitrate 1 applic TOPICAL TID 12/20/20 01/20/21 History polyethylene glycol 3350 [Miralax] 17 g PO DAILY PRN 12/20/20 01/20/21 History Eliquis 5 mg PO BID #0 tablet 01/19/21 01/20/21 Rx acetaminophen [Mapap 650 mg PO Q6H PRN #0 tablet 01/19/21 01/20/21 Rx (acetaminophen)] dextrose [Glutose-15] 15 g PO PRN PRN #0 g 01/19/21 01/20/21 Rx insulin glargine [Lantus U-100 45 unit SUBCUT HS #0 ml 01/19/21 01/20/21 Rx Insulin] magnesium oxide 400 mg PO DAILY #30 tablet 01/19/21 01/20/21 Rx sodium hypochlorite [Dakin's 1 applic TOPICAL Q12H #473 ml 01/19/21 01/20/21 Rx Solution] torsemide 10 mg PO QAM #30 tablet 01/19/21 01/20/21 Rx Laboratory Tests 01/20/21 01/20/21 01/20/21 03:32 03:32 03:32 WBC 23.0 K/mm3 H K/mm3 (4.5-10.0) RBC 3.00 M/mm3 L M/mm3 (4.6-6.20) Hgb 8.3 g/dL L g/dL (14.0-18.0) Hct 27.1 % L % (42.0-52.0) MCV 90.3 fl fl (80-100) MCH 27.7 pg pg (26-34) MCHC 30.6 g/dl L g/dl (32-36) RDW 18.6 % H % (11.5-14.5) Plt Count 288 k/mm3 k/mm3 (150-375) MPV 8.7 fl fl (7.4-10.4) Immature Gran % (Auto) 4.7 % H % (0-0.5) Neut % (Auto) 83.0 % H % (45.5-73.1) Lymph % (Auto) 4.7 % L % (18.3-44.2) Prentiss % (Auto) 6.5 % % (2.6-8.5) Eos % (Auto) 0.6 % % (0-4.4) Baso % (Auto) 0.5 % % (0.2-1.2) Lymph # (Auto) 1.07 K/mm3 K/mm3 (0.9-3.2) Prentiss # (Auto) 1.5 K/mm3 H K/mm3 (0.1-0.6) Eos # (Auto) 0.1 K/mm3 K/mm3 (0-0.3) Baso # (Auto) 0.1 K/mm3 K/mm3 (0.0-0.1) Abs Immat Gran (auto) 1.07 K/mm3 H K/mm3 (0.00-0.031) Absolute Neuts (auto) 19.1 K/mm3 H K/mm3 (1.3-6.7) Absolute Nucleated RBC 0.0 K/mm3 K/mm3 (0.0-0.012) Nucleated RBC % 0.1 % % (0.0-0.2) Platelet Estimate Adequate (Adequate) Anisocytosis 1+ (NORMAL) PT 16.8 Seconds H Seconds (11.1-14.7) INR 1.4 APTT 43.3 SECONDS H SECONDS (22.3-36.8) Puncture Site ABG pH ABG pCO2 ABG pO2 ABG PO2/FiO2 Ratio ABG HCO3 ABG O2 Saturation ABG O2 Content ABG Base Excess A-a Gradient Oxyhemoglobin Carboxyhemoglobin Methemoglobin Reduced Hemoglobin Total Hemoglobin O2 Delivery Device O2 Liters/Min FiO2 Sodium 134 mmol/L L mmol/L (137-145) Potassium 3.8 mmol/L mmol/L (3.4-5.0) Chloride 99 mmol/L mmol/L (98-107) Carbon Dioxide 24 mmol/L mmol/L (22-30) Anion Gap 11 mmol/L mmol/L (8-16) BUN 25 mg/dL H mg/dL (9-20) Creatinine 1.60 mg/dL H mg/dL (0.7-1.3) Estim Creat Clear Calc Not Reportable Estimated GFR 44 L (59 -
[2021-01-20 13:17] LABS: Glucose Point of Care 393 mg/dl (65-105)
--- NOTE | 2021-01-20 14:02 | WPDURCON ---
Assessment and Plan Assessment and plan (1) Hematuria, gross: Code(s): R31.0 - Gross hematuria Status: Acute Assessment and Plan: secondary to Abarca trauma. Will plan on flexible cysto at bedside but may need formal cy (2) Urinary retention: Code(s): R33.9 - Retention of urine, unspecified Status: Acute Assessment and Plan: Will plan on Abarca catheter placement. Urology Consult Note HPI Date Seen: 01/20/21 Requesting Physician: Marielle Moore DO Primary Care Provider: Beltran Reyes, Consult Narrative Narrative: Lester Nguyễn is a 60 year old male Who is well-known to the urology service and has seen Dr Quezada most recently this past admission. patient is a quadriplegic with a BKA and AKA. He has urinary retention and has had an indwelling Abarca. For some reason the catheter was changed at the senior care yesterday. It then did not drain and he presented to the emergency room this morning. Multiple attempts were made. Hematuria then developed with clots and we were asked to see him. Review of Systems Review of Systems: All systems reviewed & are unremarkable except as noted in HPI and below PMFSH Past Medical History Medical History Atrial fibrillation On chronic anticoagulation with Eliquis C. difficile colitis Chronic kidney disease, stage 3 With history of temporary dialysis in the past. Most recently November 2020 Diabetes mellitus type 2 in obese Diabetic nephropathy Hands Diastolic dysfunction Last echocardiogram March 2018 demonstrated normal EF of 65-70 with moderate LVH and severe left atrial enlargement GI bleed HTN (hypertension), malignant Hyperlipidemia Metabolic acidosis Morbid obesity Obstructive sleep apnea treated with BiPAP patient is noncompliant with his BiPAP Peripheral vascular disease Surgical History Surgical History Gastrointestinal tube in situ History of appendectomy History of bilateral carpal tunnel release History of left above knee amputation History of right below knee amputation History of tonsillectomy and adenoidectomy Family History Family History Sibling Lung cancer Sister Hypertension Brain cancer Father Diabetes mellitus Coronary artery disease Hypertension Mother Acute myocardial infarction Other Family history of arthritis Social History Social History Social History: The patient lived with the brother who is an over the road local combination truck driver who is rarely home until late October 2020 at which time he was discharged to a retirement facility. Primary care physician: Dr. Beltran Reyes Code status: DNR/DNI Surrogate decision maker: Brother Smoking status: Never smoker Alcohol intake: never Alcohol use details: The patient only uses minimal alcohol on occasion. Substance use: never Substance use type: does not use Additional living arrangements comments: He owns his own house but his brother lives with him and helps him when needed. However his brother is an [id number] local combination truck driver and is rarely home. 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 He is on disability due to his peripheral vascular disease and bilateral lower extremity amputations. Gender identity (if verbalized by the patient): Male Spiritual care concerns: No Agree to blood products: Yes Meds Home Medications and Allergies Home Medications Medication Instructions Recorded Confirmed Type Mepilex #0 ea 11/20/20 12/20/20 Rx Mepilex #0 ea 11/20/20 12/20/20 Rx pantoprazole 40 mg PO Q12HR #0 tablet 11/20/20 01/20/21 Rx cholecalciferol (vitamin D3) 1,250 mcg FEEDING
--- NOTE | 2021-01-20 14:08 | W.PM.PROC2 ---
Procedure Note - Detailed Date of Procedure 01/20/21 Pre-op Diagnosis gross hematuria,urinary retention,afib with rvr Post-op Diagnosis same Procedure Performed Flexible cystoscopy with Abarca catheter placement Surgeon Gerhard Figueroa MD Anesthesia local Description of Procedure Patient is correctly identified. His phallus is prepped and draped usual sterile fashion. Sixteen Maori flexible scope was inserted into the urethra. He has numerous clots in there which makes it difficult to visualize. We tried followed the anterior urethra and were able to get the scope into the bladder. There was too many clots present to visually inspected adequately. We placed a [employer] wire in. We then placed a 16 Maori Pala tip catheter over the wire and inflated with 10 cc sterile water. We copiously irrigated the bladder and retrieve numerous clots. At termination of the procedure however the catheter still would not irrigate appropriately in was very dark in nature. Will plan on formal cysto clot evacuation with placement of a 3 way Abarca in the operating room later today. Urine Output 700 Drains Yes Complications No immediate complications Condition stable Disposition PACU
[2021-01-20] MEDS: LIDOCAINE HCL 2% GEL UROJET 10 ML PKG 20 ML MUCOUS MEM (14:26)
--- NOTE | 2021-01-20 14:39 | W.PM.PROC2 ---
Procedure Note - Detailed Date of Procedure 01/20/21 Pre-op Diagnosis gross hematuria,urinary retention,afib with rvr Post-op Diagnosis same Procedure Performed Cystoscopy with clot evacuation and complex Abarca catheter placement Surgeon Gerhard Figueroa MD Anesthesia general Findings Approximately 700 cc of clot in the bladder. For urethral trauma from Abarca catheter attempts. No active bleeding at this time. Description of Procedure Patient is taken the operative suite and correctly identified. Once anesthesia was obtained he was secured as well as possible. He he was prepped draped usual sterile fashion. A superstiff wire was passed through the [place] tip catheter that I had placed earlier in the day. This was verified under fluoroscopy. Twenty-two Belarusian scope was then inserted. It was difficult to evaluate the urethra due to the trauma but we were able to manipulate the scope into the bladder. At this point time we irrigated approximately 700 cc of clot. Reinspection of the bladder revealed no residual clot or active bleeding. A [address] Abarca was then used by placing a hole at the end. We passed this over the superstiff wire passed into the bladder. The balloon was inflated with 15 cc of sterile water. This was connected to continuous bladder irrigation and patient is taken recovery stable condition. Will wean the CBI as tolerated. Urine Output 700 Drains Yes Packing No Pathology none sent Complications No immediate complications Condition stable Disposition PACU
[2021-01-20] MEDS: LACTATED RINGERS 1,000 ML 30 ML IV CONT (14:47)
[2021-01-20 14:54] LABS: Glucose Point of Care 389 mg/dl (65-105)
--- NOTE | 2021-01-20 15:04 | SUR.PHASEI ---
1504 - dr. ricks aware of accucheck 389 - no orders received.
[2021-01-20] MEDS: MAGNESIUM OXIDE 400 MG TABLET FEED TUBE (16:23)
[2021-01-20] MEDS: SOD HYPOCHLORITE 1/4 STRENGTH 473 ML 1 APPLIC TOPICAL (16:23)
[2021-01-20] MEDS: TORSEMIDE 10 MG TABLET FEED TUBE (16:23)
[2021-01-20] MEDS: INSULIN ASPART (*BKC) 100 UNITS/ML SUB-Q (16:23)
[2021-01-20] MEDS: TOLNAFTATE 1% POWDER 45 GM BTL 1 APPLIC TOPICAL (16:23)
[2021-01-20 17:46] LABS: Glucose Point of Care 400 mg/dl (65-105)
[2021-01-20] MEDS: ERGOCALCIFEROL SOLN 8,000 UNITS/ML 60 ML BOTTLE 50000 UNITS FEED TUBE (18:22)
[2021-01-20 18:46] LABS: Hematocrit 21.9 % (42.0-52.0)
[2021-01-20 18:54] LABS: Hemoglobin 6.7 g/dL (14.0-18.0)
[2021-01-20 20:39] LABS: Glucose Point of Care 346 mg/dl (65-105)
--- NOTE | 2021-01-20 20:42 | PM.CNCAR ---
Assessment and Plan Assessment and plan (1) Chronic atrial fibrillation with RVR: Code(s): I48.20 - Chronic atrial fibrillation, unspecified Status: Acute Assessment and Plan: Longstanding atrial fibrillation with intermittent episodes of rapid ventricular response usually due to physiologic stress such as the Abarca trauma, hematuria and trip to the emergency room this morning. Currently doing well on Cardizem drip Will transition back to carvedilol tomorrow. 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 (3) Hematuria, gross: Code(s): R31.0 - Gross hematuria Status: Acute Assessment and Plan: Improved after cysto, and bladder irrigation (4) Anemia: Code(s): D64.9 - Anemia, unspecified Status: Acute Assessment and Plan: Chronic anemia, worsened with hematuria. (5) Functional quadriplegia: Code(s): R53.2 - Functional quadriplegia Status: Acute Assessment and Plan: Needs total care. History of Present Illness History of Present Illness Consult date/time: 01/20/21 20:42 Consult reason: atrial fibrillation Reason For Visit: gross hematuria,urinary retention,afib with rvr Narrative: Mr. Lester Nguyễn is a 60-year-old male with a history of AFib whom were asked to see at the request of the hospitalist for advice and opinion regarding his AFib RVR, in consultation. Mr. Lester nguyễn is a very unfortunate functionally quadriplegic with a history of AFib who was just discharged yesterday after long hospitalization for wound debridement, hematuria, and AFib RVR. Who participated in his care, and his carvedilol was reduced to 3.125 mg b.i.d. because of some bradycardia and pauses. He was discharged with Eliquis. He apparently had some Abarca trauma and gross hematuria and was readmitted this morning. He was in AFib RVR. He underwent a cysto by Dr. Figueroa and is having bladder irrigation with improvement. He was given some IV metoprolol as well as started on a Cardizem drip at 15 milligrams/hour. His AFib rate is now improved, with a heart rate in the 80s. Eliquis of course has been held. He has no complaints of chest pain, palpitations or shortness of breath. He is thirsty and says he has had nausea for several weeks. Review of Systems Constitutional: Constitutional: Reports lethargy and Reports weakness Eyes: Eyes: Reports no additional eye complaints ENT: Denies epistaxis Cardiovascular: Cardiovascular: Denies chest pain, Denies leg edema, Denies lightheadedness and Denies palpitations Respiratory: Respiratory: Denies chest congestion, Denies cough, Denies dyspnea and Denies dyspnea on exertion Gastrointestinal: Gastrointestinal: Denies abdominal pain and Reports nausea Genitourinary: Genitourinary: Reports dysuria Comments: Complains of pain in his penis Musculoskeletal: Musculoskeletal: Denies back pain Integumentary/Breasts: Skin/Breast: Denies rash Neurologic: Reports system reviewed and no additional complaints, except as documented Psychiatric: Psychiatric: Denies behavioral changes PMFSH Past Medical History Medical History Atrial fibrillation On chronic anticoagulation with Eliquis C. difficile colitis Chronic kidney disease, stage 3 With history of temporary dialysis in the past. Most recently November 2020 Diabetes me
[2021-01-20] MEDS: INSULIN GLARGINE (*BKC) 100 UNITS/ML 25 UNITS SUB-Q (21:36)
[2021-01-20] MEDS: SODIUM CHLORIDE 0.9% IV 250 ML 30 ML IV CONT (21:41)
[2021-01-20] MEDS: LANSOPRAZOLE ORAL SUSP 30 MG/10 ML ORAL.SUSP FEED TUBE (21:41)
[2021-01-21] VITALS (19 sets, daily range): BP systolic 110–140; BP diastolic 44–59; PULSE 68–98; RESP 20–46; TEMP 36.6–36.8; O2SAT 97–100
[2021-01-21] MEDS: SOD HYPOCHLORITE 1/4 STRENGTH 473 ML 1 APPLIC TOPICAL ×2 (04:00→15:56)
[2021-01-21 04:57] LABS: Basophils Absolute Auto 0.1 K/mm3 (0.0-0.1); Basophils Percent Auto 0.4 % (0.2-1.2); Eosinophils Percent Auto 0.1 % (0-4.4); Hematocrit 24.2 % (42.0-52.0); Hemoglobin 7.5 g/dL (14.0-18.0); Immature Granulocyte Percent A 2.3 % (0-0.5); Lymphocytes Absolute Auto 1.26 K/mm3 (0.9-3.2); Lymphocytes Percent Auto 7.3 % (18.3-44.2); Mean Corpuscular Hemoglobin 28.7 pg (26-34); Mean Corpuscular Volume 92.7 fl (80-100); Mean Platelet Volume 8.4 fl (7.4-10.4); Monocytes Absolute Auto 1.9 K/mm3 (0.1-0.6); Monocytes Percent Auto 10.9 % (2.6-8.5); Neutrophils Absolute Auto 13.7 K/mm3 (1.3-6.7); Platelet Count Result 224 k/mm3 (150-375); Red Blood Count 2.61 M/mm3 (4.6-6.20); Red Cell Distribution Width 17.8 % (11.5-14.5); White Blood Count 17.3 K/mm3 (4.5-10.0)
[2021-01-21 05:06] LABS: Alanine Aminotransferase 6 U/L (4-50); Albumin Level 2.3 g/dL (3.5-5.1); Alkaline Phosphatase 68 U/L (38-126); Anion Gap 6 mmol/L (8-16); Aspartate Amino Transferase 15 U/L (17-59); Bilirubin,Total 0.2 mg/dL (0.2-1.3); Blood Urea Nitrogen 28 mg/dL (9-20); Calcium 7.3 mg/dL (8.4-10.2); Carbon Dioxide 29 mmol/L (22-30); Chloride 99 mmol/L (98-107); Estimated CRCL calculation 55 ml/min; Estimated Glomerular Filt Rate 36; Glucose 358 mg/dL (65-110); Potassium 3.8 mmol/L (3.4-5.0); Sodium 134 mmol/L (137-145)
[2021-01-21 08:03] LABS: Glucose Point of Care 309 mg/dl (65-105)
[2021-01-21] MEDS: LANSOPRAZOLE ORAL SUSP 30 MG/10 ML ORAL.SUSP FEED TUBE ×2 (08:35→21:04)
[2021-01-21] MEDS: INSULIN ASPART (*BKC) 100 UNITS/ML SUB-Q ×3 (08:36→17:22)
[2021-01-21] MEDS: MAGNESIUM OXIDE 400 MG TABLET FEED TUBE (08:36)
[2021-01-21] MEDS: INSULIN DETEMIR 100 UNITS/ML 12 UNITS SUB-Q (08:36)
[2021-01-21] MEDS: TOLNAFTATE 1% POWDER 45 GM BTL 1 APPLIC TOPICAL ×3 (08:36→17:23)
[2021-01-21] MEDS: ACETAMINOPHEN 325 MG TABLET 650 MG PO (08:48)
[2021-01-21] MEDS: ONDANSETRON INJ 4 MG/2 ML VIAL IV PUSH ×2 (09:32→18:37)
[2021-01-21 12:38] LABS: Glucose Point of Care 328 mg/dl (65-105)
[2021-01-21] MEDS: INSULIN ASPART (*BKC) 100 UNITS/ML 7 UNITS SUB-Q ×2 (12:39→17:22)
--- NOTE | 2021-01-21 13:23 | PM.IMPN ---
Progress Note: A&P Assessment and Plan (1) Hematuria, gross: Code(s): R31.0 - Gross hematuria Status: Acute Assessment and Plan: Alexander related to Abarca trauma when attempted Abarca replacement in the facility. May have false tracked the urethra to cause the penile pain. Urology consulted and patient underwent cystoscope with clot evacuation. Abarca remains in place. Urine clear now. (2) Acute urinary retention: Code(s): R33.8 - Other retention of urine Status: Acute Assessment and Plan: Patient had acute urinary retention when the Abarca catheter was unable to be replaced most likely related to clot formation. Abarca catheter was replaced with relief of obstruction. As above. (3) Anemia: Code(s): D64.9 - Anemia, unspecified Status: Acute Assessment and Plan: Last admission, patient's Hgb was 9.3 before dropping to the 7 range but was stable. Patient has underlying chronic anemia related to his multiple chronic medical problems. B12, folate and iron studies consistent with this. Hgb 8.3 on admission but dropped to 6.7 yesterday and he was transfused 1U PRBC. He tolerated this well. Hgb better today at 7.5. Alexander he has acute blood loss anemia with underlying chronic anemia. No further evidence of acute blood loss. Continue to follow. (4) Chronic atrial fibrillation with RVR: Code(s): I48.20 - Chronic atrial fibrillation, unspecified Status: Acute Assessment and Plan: Patient has chronic atrial fibrillation. Last hospitalization, he was on digoxin and Coreg. Both of these medications had to be decrease then stopped related to bradycardia with prolonged cardiac pause. Patient presents with AFib/RVR felt related to pain. Currently on diltiazem drip and HR is well controlled. Wean off diltiazem drip. No plans for anticoagulation. Cardiology following (5) Leukocytosis: Qualifiers: Leukocytosis type: unspecified Qualified Code(s): D72.829 - Elevated white blood cell count, unspecified Code(s): D72.829 - Elevated white blood cell count, unspecified Status: Acute Assessment and Plan: WBC was 14K at discharge but jumped to 23K on this admission. More likely related to stress response then from infectious process. BCx NGTD. Repeat WBC down to 17K now. Follow. Stop abx (6) RADHA (acute kidney injury): Code(s): N17.9 - Acute kidney failure, unspecified Status: Acute Assessment and Plan: Patient with normal Cr baseline. He developed RADHA last admission felt possibly related to AIN. His Cr peaked at 3.5 before improving to 1.6 at discharge. Cr unchanged on admission at 1.6 but has now climbed to 1.9 felt related to above events. Will hold Demedex for now. Hold on IV fluids since patietn already edematous. Continue to monitor. (7) Anticoagulant long-term use: Code(s): Z79.01 - senior care (current) use of anticoagulants Status: Acute Assessment and Plan: During his last hospital course, patient was started back on his Eliquis which he tolerated well. Eliquis currently on hold with no plans to resume at this time due to the gross hematuria. (8) Sacral decubitus ulcer: Code(s): L89.159 - Pressure ulcer of sacral region, unspecified stage Status: Acute Assessment and Plan: Patient with known sacral decubitus ulcer. He also has right stump wound. Continue current dressing changes. (9) Diabetes: Code(s): E11.9 - Type 2 diabetes mellitus without complications Status: Chronic Assessment and Plan: A1c 8.6 in October. The patient's blood glucose was reviewed on 01/21. Glucose remains poorly controlled. Denny did receive Lantus 25U last night. Will give one time dose of Levemir this morning and add Novlog at meals. Increase lantus tonight back to full home dose. Continue AccuCheks covering with sliding scale. Hypoglycemia protocol available as needed.
--- NOTE | 2021-01-21 13:30 | WPDUROPN2 ---
Progress Note: A&P Assessment and Plan (1) Hematuria, gross: Code(s): R31.0 - Gross hematuria Status: Acute Assessment and Plan: Resolved, CBI turned off, if urine starts to become bloody again, resume CBI (2) Acute urinary retention: Code(s): R33.8 - Other retention of urine Status: Acute Assessment and Plan: Resume monthly catheter changes, starting 02/19/2021. No further evaluation at this time, please contact us if further assistance is needed. (3) Urinary retention: Code(s): R33.9 - Retention of urine, unspecified Status: Acute Subjective Subjective Date/Time Seen: 01/21/21 13:30 POD #1 Cystoscopy with Clot evacuation, 700cc of clot removed in the oR. Patient doing well, urine is clear on a slow drip CBI. Review of Systems Cardiovascular: Cardiovascular: Denies chest pain Respiratory: Respiratory: Reports no additional respiratory complaints Gastrointestinal: Gastrointestinal: Denies abdominal pain, Denies nausea and Denies vomiting Genitourinary: Genitourinary: Denies hematuria, Denies dysuria, Denies flank pain, Denies urinary hesitancy and Denies urinary urgency Exam Resp: Effort & Inspection: normal respiratory effort Cardio: Rate: regular rate GI: GI Palp: Yes Soft to palpation and No Tenderness to palpation present (GI) : General: Yes no CVA tenderness Urinary Catheter: Urinary Catheter: patent and draining and urine clear Extrem: General: edema bilateral (patient has bilateral LE amputations.) Objective Data Vital Signs Vital Signs: Vital Signs - 24 hr 01/20/21 14:47 01/20/21 15:00 01/20/21 15:15 Temperature 99.2 F Pulse Rate 109 H 109 H 107 H Respiratory Rate 23 H 28 H 24 H Blood Pressure 153/61 H 168/62 H 183/70 H Pulse Oximetry 96 100 95 01/20/21 15:30 01/20/21 15:40 01/20/21 16:00 Temperature Pulse Rate 101 H 101 H 100 Respiratory Rate 24 H 24 H Blood Pressure 172/65 H 173/58 H Pulse Oximetry 94 95 01/20/21 16:35 01/20/21 17:32 01/20/21 18:00 Temperature 98.8 F Pulse Rate 98 92 96 Respiratory Rate 24 H Blood Pressure 152/66 H Pulse Oximetry 97 01/20/21 20:00 01/20/21 22:00 01/20/21 23:33 Temperature 99.4 F 98.3 F Pulse Rate 92 84 91 Respiratory Rate 32 H 28 H Blood Pressure 131/43 L 133/47 L Pulse Oximetry 100 100 01/20/21 23:50 01/21/21 00:00 01/21/21 00:19 Temperature 99.1 F 98.3 F Pulse Rate 97 93 98 Respiratory Rate 44 H 46 H Blood Pressure 138/45 L 124/48 L Pulse Oximetry 98 99 01/21/21 01:19 01/21/21 02:00 01/21/21 02:19 Temperature 98.2 F 98.1 F Pulse Rate 97 90 92 Respiratory Rate 28 H 28 H Blood Pressure 140/44 L 127/48 L Pulse Oximetry 100 97 01/21/21 03:19 01/21/21 04:00 01/21/21 06:00 Temperature 98.3 F Pulse Rate 88 88 93 Respiratory Rate 28 H Blood Pressure 132/46 L Pulse Oximetry 100 01/21/21 08:00 01/21/21 10:00 01/21/21 12:00 Temperature Pulse Rate 92 81 82 Respiratory Rate Blood Pressure Pulse Oximetry Intake/Output Intake/Output: Intake & Output 01/18/21 01/19/21 01/20/21 01/21/21 23:59 23:59 23:59 23:59 Intake Total 700 1780 Output Total 8000 1075 Balance -7300 705 Meds/Results Medications: Active Medications Generic Name Dose Route Start Last Admin Trade Name Freq PRN Reason Stop Dose Admin Acetaminophen 650 mg 01/20/21 11:44 01/21/21 08:48 Acetaminophen 325 Mg Tablet PO 650 mg Q6H PRN Administration Mild Pain (1-3) Or Fever Dextrose 12.5 gm 01/20/21 11:42 Dextrose 50% 25 Gm/50 Ml Syringe IV PUSH PRN PRN Hypoglycemia Protocol Ergocalciferol 50,000 units 01/20/21 09:00 01/20/21 18:22 Ergocalciferol Soln 8,000 Units/Ml 60 Ml Bottle FEED TUBE 50,000 units WEEKLY FAROOQ Administration Fentanyl Citrate 25 mcg 01/20/21 13:29 Fentanyl Citrate Inj (*Crx) 100 Mcg/2 Ml Vial IV PUSH Q2M PRN Pain Glucagon 1 mg 01/20/21 11:4
--- NOTE | 2021-01-21 14:01 | WPDANESPN ---
Anes - Prog Note Post-Op Date/Time: 01/21/21 14:01 Cardiovascular status: normal Respiratory status: normal Airway patency: baseline Mental status: baseline Post-Op hydration status: normal Vital Signs: Last Vital Signs Temp 36.8 C 01/21/21 03:19 Pulse 82 01/21/21 12:00 Resp 28 H 01/21/21 03:19 BP 132/46 L 01/21/21 03:19 Pulse Ox 100 01/21/21 03:19 Pain Score (VAS): 0 I/O: Intake & Output 01/20/21 01/21/21 01/21/21 23:59 07:59 15:59 Intake Total 200 1300 960 Output Total 2500 1075 Balance -2300 225 960 Laboratory Tests 01/21/21 04:48 01/21/21 04:48 01/20/21 01/20/21 01/20/21 14:51 16:16 18:19 WBC RBC Hgb 6.7 L* Hct 21.9 L MCV MCH MCHC RDW Plt Count MPV Immature Gran % (Auto) Neut % (Auto) Lymph % (Auto) [place] % (Auto) Eos % (Auto) Baso % (Auto) Lymph # (Auto) [place] # (Auto) Eos # (Auto) Baso # (Auto) Abs Immat Gran (auto) Absolute Neuts (auto) Absolute Nucleated RBC Nucleated RBC % Sodium Potassium Chloride Carbon Dioxide Anion Gap BUN Creatinine Estim Creat Clear Calc Estimated GFR Glucose POC Capillary Glucose 389 H 400 H Calcium Total Bilirubin AST ALT Alkaline Phosphatase Total Protein Albumin Blood Type Antibody Screen Crossmatch 01/20/21 01/20/21 01/21/21 19:57 20:36 04:48 WBC 17.3 H RBC 2.61 L Hgb 7.5 L Hct 24.2 L MCV 92.7 MCH 28.7 MCHC 31.0 L RDW 17.8 H Plt Count 224 MPV 8.4 Immature Gran % (Auto) 2.3 H Neut % (Auto) 79.0 H Lymph % (Auto) 7.3 L [place] % (Auto) 10.9 H Eos % (Auto) 0.1 Baso % (Auto) 0.4 Lymph # (Auto) 1.26 [place] # (Auto) 1.9 H Eos # (Auto) 0.0 Baso # (Auto) 0.1 Abs Immat Gran (auto) 0.40 H Absolute Neuts (auto) 13.7 H Absolute Nucleated RBC 0.0 Nucleated RBC % 0.0 Sodium Potassium Chloride Carbon Dioxide Anion Gap BUN Creatinine Estim Creat Clear Calc Estimated GFR Glucose POC Capillary Glucose 346 H Calcium Total Bilirubin AST ALT Alkaline Phosphatase Total Protein Albumin Blood Type A Positive Antibody Screen Negative Crossmatch See Detail 01/21/21 01/21/21 01/21/21 04:48 07:30 11:51 WBC RBC Hgb Hct MCV MCH MCHC RDW Plt Count MPV Immature Gran % (Auto) Neut % (Auto) Lymph % (Auto) [place] % (Auto) Eos % (Auto) Baso % (Auto) Lymph # (Auto) [place] # (Auto) Eos # (Auto) Baso # (Auto) Abs Immat Gran (auto) Absolute Neuts (auto) Absolute Nucleated RBC Nucleated RBC % Sodium 134 L Potassium 3.8 Chloride 99 Carbon Dioxide 29 Anion Gap 6 L BUN 28 H Creatinine 1.90 H Estim Creat Clear Calc 55 Estimated GFR 36 L Glucose 358 H POC Capillary Glucose 309 H 328 H Calcium 7.3 L Total Bilirubin 0.2 AST 15 L ALT 6 Alkaline Phosphatase 68 Total Protein 4.0 L Albumin 2.3 L Blood Type Antibody Screen Crossmatch Microbiology 01/20/21 05:29 Blood Blood Culture - Preliminary 01/20/21 05:29 Blood Blood Culture - Preliminary Post-procedural complaints: none Patient Feedback: Patient satisfied with anesthetic care.
[2021-01-21] MEDS: METOCLOPRAMIDE HCL 5 MG TABLET PO ×2 (17:22→21:04)
--- NOTE | 2021-01-21 17:28 | PM.PNCARD ---
Progress Note: A&P Assessment and Plan (1) Chronic atrial fibrillation with RVR: Code(s): I48.20 - Chronic atrial fibrillation, unspecified Status: Acute Assessment and Plan: Longstanding atrial fibrillation with intermittent episodes of rapid ventricular response usually due to physiologic stress such as the Abarca trauma, hematuria and trip to the emergency room this admission. Currently doing well on Cardizem drip. Will transition back to carvedilol at low-dose, 3.125 b.i.d.. 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 (2) Anticoagulant long-term use: Code(s): Z79.01 - senior living (current) use of anticoagulants Status: Acute Assessment and Plan: Was taking Eliquis, which will need to be held because of his gross hematuria. Second problem with hematuria over the past month. May not be able to resume anticoagulation. (3) Hematuria, gross: Code(s): R31.0 - Gross hematuria Status: Acute Assessment and Plan: Improved after cysto, and bladder irrigation (4) Anemia: Code(s): D64.9 - Anemia, unspecified Status: Acute Assessment and Plan: Chronic anemia, worsened with hematuria. Status post 1 unit of packed cells. (5) Functional quadriplegia: Code(s): R53.2 - Functional quadriplegia Status: Acute Assessment and Plan: Needs total care. Subjective Date/time seen: 01/21/21 17:28 Interval history: Follow-up for atrial fibrillation. Admitted with AFib RVR, at the time when he was in pain, having hematuria secondary to Abarca trauma and more anemic. He has received 1 unit of packed cells and had cystoscopy with removal of blood clots. Date of service 01/21/2021: Tired, not getting a good sleep, frequent interruptions. No pain or shortness of breath. Currently on a Cardizem drip at 15 milligrams/hour. Telemetry shows heart rate generally in the 70s to 80s. Review of Systems Constitutional: Constitutional: Reports fatigue Eyes: Eyes: Reports no additional eye complaints Cardiovascular: Cardiovascular: Denies chest pain, Denies lightheadedness and Denies palpitations Respiratory: Respiratory: Denies dyspnea Gastrointestinal: Gastrointestinal: Denies abdominal pain Genitourinary: Genitourinary: Reports hematuria (Much improved) Musculoskeletal: Musculoskeletal: Reports back pain Integumentary/Breasts: Skin/Breast: Reports wounds Comments: Has a sacral decubitus and poor wound healing of the right lower extremity stump Exam Const: General: comfortable and no acute distress HENMT: General nose exam: no epistaxis Eyes: EOM: EOMs intact bilaterally Neck: Neck: supple Resp: Effort & Inspection: normal respiratory effort Auscultation: clear to auscultation bilaterally Cardio: Rate: regular rate Rhythm: abnormal rhythm irregularly irregular GI: GI Palp: Yes Soft to palpation and Yes Firmness to palpation present (GI) (Obese) Urinary Catheter: Urinary Catheter: patent and draining and urine dark Skin: General skin exam: normal color Neuro: Cognition (Neuro): normal cognition Speech: normal speech Extrem: General: edema (Some edema of hands and fingers) Psych: Mental Status: mental status grossly normal Objective Data Vital Signs Vital Signs: Vital Signs - 24 hr 01/20/21 17:32 01/20/21 18:00 01/20/21 20:00 Temperature 99.4 F Pulse Rate 92 96 92 Respiratory Rate 32 H Blood Pressure 131/43 L Pulse Oximetry 100 09/28/21 22:00 01/20/21 23:33 01/20/21 23:50 Temperature 98.3 F 99.1 F Pulse Rate 84 91 97 Respiratory Rate 28 H 44 H Blood Pressure 133/47 L 138/45 L Pu
[2021-01-21 17:33] LABS: Glucose Point of Care 238 mg/dl (65-105)
--- NOTE | 2021-01-21 17:35 | PC.NURSE ---
On 01/21/21, the student, Maggi CACERES, provided care and completed [employer] documentation on this patient. I have reviewed the student's documentation and agree with the findings.
[2021-01-21] MEDS: carvediloL 3.125 MG TABLET PO (17:56)
[2021-01-21 21:30] LABS: Glucose Point of Care 198 mg/dl (65-105)
[2021-01-22] VITALS (22 sets, daily range): BP systolic 103–131; BP diastolic 43–61; PULSE 73–83; RESP 18–32; TEMP 34.8–36.9; O2SAT 98–100
[2021-01-22 05:15] LABS: Hematocrit 21.8 % (42.0-52.0); Mean Corpuscular HGB Conc 30.3 g/dl (32-36); Mean Corpuscular Hemoglobin 27.3 pg (26-34); Mean Corpuscular Volume 90.1 fl (80-100); Mean Platelet Volume 8.5 fl (7.4-10.4); Platelet Count Result 208 k/mm3 (150-375); Red Blood Count 2.42 M/mm3 (4.6-6.20); Red Cell Distribution Width 17.6 % (11.5-14.5); White Blood Count 13.5 K/mm3 (4.5-10.0)
[2021-01-22 05:25] LABS: Hemoglobin 6.6 g/dL (14.0-18.0)
[2021-01-22 05:30] LABS: Albumin Level 2.3 g/dL (3.5-5.1); Alkaline Phosphatase 65 U/L (38-126); Anion Gap 10 mmol/L (8-16); Aspartate Amino Transferase 12 U/L (17-59); Bilirubin,Total 0.3 mg/dL (0.2-1.3); Blood Urea Nitrogen 26 mg/dL (9-20); Calcium 6.8 mg/dL (8.4-10.2); Carbon Dioxide 28 mmol/L (22-30); Chloride 95 mmol/L (98-107); Estimated CRCL calculation 58 ml/min; Estimated Glomerular Filt Rate 39; Glucose 176 mg/dL (65-110); Magnesium 1.2 mg/dL (1.6-2.3); Potassium 3.6 mmol/L (3.4-5.0); Sodium 133 mmol/L (137-145)
[2021-01-22 05:31] LABS: Alanine Aminotransferase < 4 U/L (4-50)
[2021-01-22] MEDS: METOCLOPRAMIDE HCL 5 MG TABLET PO ×4 (06:21→20:46)
[2021-01-22] MEDS: SOD HYPOCHLORITE 1/4 STRENGTH 473 ML 1 APPLIC TOPICAL ×2 (06:21→08:16)
[2021-01-22] MEDS: carvediloL 3.125 MG TABLET PO ×2 (06:21→19:00)
[2021-01-22 07:58] LABS: Glucose Point of Care 149 mg/dl (65-105)
[2021-01-22] MEDS: INSULIN ASPART (*BKC) 100 UNITS/ML 7 UNITS SUB-Q ×3 (08:14→17:30)
[2021-01-22] MEDS: MAGNESIUM OXIDE 400 MG TABLET FEED TUBE (08:14)
[2021-01-22] MEDS: SODIUM CHLORIDE 0.9% IV 250 ML 30 ML IV CONT (08:15)
[2021-01-22] MEDS: TOLNAFTATE 1% POWDER 45 GM BTL 1 APPLIC TOPICAL ×3 (08:16→19:56)
[2021-01-22] MEDS: ACETAMINOPHEN 325 MG TABLET 650 MG PO (08:33)
[2021-01-22] MEDS: LANSOPRAZOLE ORAL SUSP 30 MG/10 ML ORAL.SUSP FEED TUBE ×2 (08:34→20:46)
[2021-01-22] MEDS: MAGNESIUM SULF 2 GM/WATER 50ML 2 GM/50 ML BAG IVPB (09:03)
[2021-01-22 12:07] LABS: Glucose Point of Care 158 mg/dl (65-105)
[2021-01-22 12:20] LABS: Hemoglobin 7.4 g/dL (14.0-18.0)
--- NOTE | 2021-01-22 12:32 | PM.IMPN ---
Progress Note: A&P Assessment and Plan (1) Hematuria, gross: Code(s): R31.0 - Gross hematuria Status: Acute Assessment and Plan: Roland related to Abarca trauma when attempted Abarca replacement at the facility. May have false tracked the urethra to cause the penile pain. Urology consulted and patient underwent cystoscope with clot evacuation 01/20. Abarca remains in place. Urine clear now and CBI off now. (2) Acute urinary retention: Code(s): R33.8 - Other retention of urine Status: Acute Assessment and Plan: Patient had acute urinary retention when the Abarca catheter was unable to be replaced most likely related to clot formation. Abarca catheter was replaced with relief of obstruction. As above. (3) Anemia: Code(s): D64.9 - Anemia, unspecified Status: Acute Assessment and Plan: Last admission, patient's Hgb was 9.3 before dropping to the 7 range but was stable. Patient has underlying chronic anemia related to his multiple chronic medical problems. B12, folate and iron studies consistent with this. Hgb 8.3 on admission but dropped to 6.7 on 01/20 and he was transfused 1U PRBC. Hgb better but then dropped to 6.6 today requring another transfusion. He has acute blood loss anemia from the gross heamturia with underlying chronic anemia. No further evidence of acute blood loss. Could be re-equalibrating. Will follow with serial HH. Check stool gauiac. Continue to follow. (4) Chronic atrial fibrillation with RVR: Code(s): I48.20 - Chronic atrial fibrillation, unspecified Status: Acute Assessment and Plan: Patient has chronic atrial fibrillation. Last hospitalization, he was on digoxin and Coreg. Both of these medications had to be decrease then stopped related to bradycardia with prolonged cardiac pause. Patient presents with AFib/RVR felt related to pain. Patietn was on diltiazem drip that ws controlling his HR. He has been changed to low dose COreg and toelrating this well. No plans for anticoagulation. Cardiology following and appreciate their input. (5) Leukocytosis: Qualifiers: Leukocytosis type: unspecified Qualified Code(s): D72.829 - Elevated white blood cell count, unspecified Code(s): D72.829 - Elevated white blood cell count, unspecified Status: Acute Assessment and Plan: WBC was 14K at discharge but jumped to 23K on this admission. More likely related to stress response then from infectious process. BCx NGTD. Repeat WBC down to 13.5K off abx. Follow. (6) RADHA (acute kidney injury): Code(s): N17.9 - Acute kidney failure, unspecified Status: Acute Assessment and Plan: Patient with normal Cr baseline. He developed RADHA last admission felt possibly related to AIN. His Cr peaked at 3.5 before improving to 1.6 at discharge. Cr 1.6 on admission but climbed to 1.9 felt related to above events. Demedex held. Cr better today. Continue to monitor. (7) Anticoagulant long-term use: Code(s): Z79.01 - skilled nursing (current) use of anticoagulants Status: Acute Assessment and Plan: During his last hospital course, patient was started back on his Eliquis which he tolerated well. Eliquis currently on hold with no plans to resume at this time due to the gross hematuria. (8) Sacral decubitus ulcer: Code(s): L89.159 - Pressure ulcer of sacral region, unspecified stage Status: Acute Assessment and Plan: Patient with known sacral decubitus ulcer. He also has right stump wound. Continue current dressing changes. (9) Diabetes: Code(s): E11.9 - Type 2 diabetes mellitus without complications Status: Chronic Assessment and Plan: A1c 8.6 in October. The patient's blood glucose was reviewed on 01/22 Glucose better controlled. Patient back on his Lantus 45U at night. We added meal time Novlog. Continue AccuCheks covering with sliding scale. Hypoglyc
[2021-01-22] MEDS: HYDROcodone/acetaminophen (*CRX) 5-325 MG TABLET 1 TAB PO (13:39)
--- NOTE | 2021-01-22 14:06 | PM.PNCARD ---
Progress Note: A&P Assessment and Plan (1) Chronic atrial fibrillation with RVR: Code(s): I48.20 - Chronic atrial fibrillation, unspecified Status: Acute Assessment and Plan: Longstanding atrial fibrillation with intermittent episodes of rapid ventricular response usually due to physiologic stress such as the Abarca trauma, hematuria and trip to the emergency room this admission. Diltiazem drip is been discontinued. Heart rate in the 70s and 80s on low-dose carvedilol 3.125 mg b.i.d.. 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 (2) Anticoagulant long-term use: Code(s): Z79.01 - [facility] (current) use of anticoagulants Status: Acute Assessment and Plan: Was taking Eliquis, which will need to be held because of his gross hematuria. Second problem with hematuria over the past month. May not be able to resume anticoagulation. (3) Hematuria, gross: Code(s): R31.0 - Gross hematuria Status: Acute Assessment and Plan: Improved after cysto, and bladder irrigation (4) Anemia: Code(s): D64.9 - Anemia, unspecified Status: Acute Assessment and Plan: Chronic anemia, worsened with hematuria. He has been transfused (5) Functional quadriplegia: Code(s): R53.2 - Functional quadriplegia Status: Acute Assessment and Plan: Needs total care. Additional Plan No acute cardiac issues at this point. Will follow along on an as needed basis. Subjective Date/time seen: 01/22/21 14:06 Review of Systems Constitutional: Constitutional: Reports fatigue, Reports lethargy and Reports weakness Eyes: Eyes: Reports no additional eye complaints ENT: Denies epistaxis Cardiovascular: Cardiovascular: Denies chest pain, Denies leg edema, Denies lightheadedness, Denies palpitations, Denies dyspnea and Denies dyspnea on exertion Respiratory: Respiratory: Denies chest congestion, Denies cough, Denies dyspnea and Denies dyspnea on exertion Gastrointestinal: Gastrointestinal: Denies abdominal pain and Reports nausea Genitourinary: Genitourinary: Reports hematuria (Much improved) and Reports dysuria Musculoskeletal: Musculoskeletal: Reports back pain Integumentary/Breasts: Skin/Breast: Denies rash and Reports wounds Neurologic: Reports system reviewed and no additional complaints, except as documented, Denies behavioral changes and Reports weakness Psychiatric: Psychiatric: Denies behavioral changes Endocrine: Endocrine: Reports fatigue and Denies palpitations Exam Narrative: Chronically ill-appearing male lying comfortably in bed. Const: General: comfortable and no acute distress HENMT: General nose exam: no epistaxis Mouth: No moist mucous membranes Eyes: EOM: EOMs intact bilaterally Neck: Neck: supple Resp: Effort & Inspection: normal respiratory effort Auscultation: clear to auscultation bilaterally Cardio: Rate: regular rate Rhythm: abnormal rhythm irregularly irregular Heart sounds: no murmurs Urinary Catheter: Urinary Catheter: patent and draining and urine dark (Blood tinged) Skin: General skin exam: normal color Other: Right AKA dressed Neuro: Cognition (Neuro): normal cognition Speech: normal speech Other: Apparently has upper extremity paresis Extrem: General: edema (Some edema of hands and fingers) Psych: Mental Status: mental status grossly normal Affect: Sad affect present Objective Data Vital Signs Vital Signs: Vital Signs - 24 hr 01/21/21 14:33 01/21/21 16:00 01/21/21 17:56 Temperature Pulse Rate 73 74 86 Respiratory Rate Blood Pressure Pulse Oximetry 01/21/21
--- NOTE | 2021-01-22 15:06 | PC.NURSE ---
On 01/22/21, the student, [Raquel Mcgraw], provided care and completed [facility] documentation on this patient. I have reviewed the student's documentation and agree with the findings.
[2021-01-22 17:00] LABS: Glucose Point of Care 168 mg/dl (65-105)
[2021-01-22 18:02] LABS: Hemoglobin 7.6 g/dL (14.0-18.0)
[2021-01-22] MEDS: INSULIN GLARGINE (*BKC) 100 UNITS/ML 45 UNITS SUB-Q (21:04)
[2021-01-22 21:07] LABS: Glucose Point of Care 212 mg/dl (65-105)
[2021-01-23] VITALS (14 sets, daily range): BP systolic 95–135; BP diastolic 42–76; PULSE 67–88; RESP 18–22; TEMP 36.2–37.3; O2SAT 97–100
[2021-01-23 01:01] LABS: Hemoglobin 7.4 g/dL (14.0-18.0)
[2021-01-23 05:10] LABS: Basophils Absolute Auto 0.1 K/mm3 (0.0-0.1); Basophils Percent Auto 0.6 % (0.2-1.2); Eosinophils Absolute Auto 0.4 K/mm3 (0-0.3); Eosinophils Percent Auto 3.3 % (0-4.4); Hematocrit 23.2 % (42.0-52.0); Hemoglobin 7.2 g/dL (14.0-18.0); Immature Granulocyte Absolute 0.18 K/mm3 (0.00-0.031); Immature Granulocyte Percent A 1.5 % (0-0.5); Lymphocytes Absolute Auto 0.92 K/mm3 (0.9-3.2); Lymphocytes Percent Auto 7.8 % (18.3-44.2); Mean Corpuscular Hemoglobin 28.3 pg (26-34); Mean Corpuscular Volume 91.3 fl (80-100); Mean Platelet Volume 8.7 fl (7.4-10.4); Monocytes Absolute Auto 1.1 K/mm3 (0.1-0.6); Monocytes Percent Auto 9.2 % (2.6-8.5); Neutrophils Absolute Auto 9.2 K/mm3 (1.3-6.7); Neutrophils Percent Auto 77.6 % (45.5-73.1); Platelet Count Result 195 k/mm3 (150-375); Red Blood Count 2.54 M/mm3 (4.6-6.20); Red Cell Distribution Width 17.2 % (11.5-14.5); White Blood Count 11.8 K/mm3 (4.5-10.0)
[2021-01-23 05:22] LABS: Albumin Level 2.4 g/dL (3.5-5.1); Anion Gap 5 mmol/L (8-16); Blood Urea Nitrogen 24 mg/dL (9-20); Calcium 6.8 mg/dL (8.4-10.2); Carbon Dioxide 31 mmol/L (22-30); Chloride 95 mmol/L (98-107); Estimated CRCL calculation 65 ml/min; Estimated Glomerular Filt Rate 44; Glucose 188 mg/dL (65-110); Phosphorus 4.4 mg/dL (2.5-4.5); Potassium 3.2 mmol/L (3.4-5.0); Sodium 131 mmol/L (137-145)
[2021-01-23] MEDS: METOCLOPRAMIDE HCL 5 MG TABLET PO ×4 (06:01→21:25)
[2021-01-23] MEDS: carvediloL 3.125 MG TABLET PO (06:01)
[2021-01-23] MEDS: SOD HYPOCHLORITE 1/4 STRENGTH 473 ML 1 APPLIC TOPICAL ×3 (06:01→21:25)
[2021-01-23 08:27] LABS: IFOB Positive Control Positive; Immunochemical Fecal Occult Bl Positive (N)
[2021-01-23] MEDS: HYDROcodone/acetaminophen (*CRX) 5-325 MG TABLET 1 TAB PO ×2 (09:27→23:51)
[2021-01-23] MEDS: MAGNESIUM OXIDE 400 MG TABLET FEED TUBE (09:28)
[2021-01-23] MEDS: TOLNAFTATE 1% POWDER 45 GM BTL 1 APPLIC TOPICAL ×3 (09:28→18:52)
[2021-01-23] MEDS: POTASSIUM CHLORIDE 20 MEQ PACKET (FOR LIQUID) 40 MEQ FEED TUBE (09:28)
[2021-01-23 09:33] LABS: Glucose Point of Care 164 mg/dl (65-105)
[2021-01-23] MEDS: INSULIN ASPART (*BKC) 100 UNITS/ML 7 UNITS SUB-Q ×3 (09:39→18:51)
[2021-01-23] MEDS: LANSOPRAZOLE ORAL SUSP 30 MG/10 ML ORAL.SUSP FEED TUBE (09:57)
[2021-01-23] MEDS: TORSEMIDE 10 MG TABLET FEED TUBE (09:57)
--- NOTE | 2021-01-23 11:40 | PM.IMPN ---
Progress Note: A&P Assessment and Plan (1) Hematuria, gross: Code(s): R31.0 - Gross hematuria Status: Acute Assessment and Plan: Forbes related to Abarca trauma when attempted Abarca replacement at the facility. May have false tracked the urethra to cause the penile pain. Urology consulted and patient underwent cystoscope with clot evacuation 01/20. Was on CBI but able to be weaned off and urine remaining clear. Abarca remains in place. UCx noted but felt to be contaminate. Follow. Appreciate Urology input (2) Acute urinary retention: Code(s): R33.8 - Other retention of urine Status: Acute Assessment and Plan: Patient had acute urinary retention when the Abarca catheter was unable to be replaced most likely related to clot formation. Abarca catheter was replaced with relief of obstruction. Still having episodes of obstruction probably related to sediment. Follow (3) Anemia: Code(s): D64.9 - Anemia, unspecified Status: Acute Assessment and Plan: Last admission, patient's Hgb was 9.3 before dropping to the 7 range but was stable. Patient has underlying chronic anemia related to his multiple chronic medical problems. B12, folate and iron studies consistent with this. Hgb 8.3 on admission but dropped to 6.7 on 01/20 and he was transfused 1U PRBC. Hgb better but then dropped to 6.6 01/22 requiring another transfusion. He has acute blood loss anemia from the gross hematuria with underlying chronic anemia. Now with positive stool guaiac. Hgb at 7.2 today. Will consult GI and continue serial HH. (4) Chronic atrial fibrillation with RVR: Code(s): I48.20 - Chronic atrial fibrillation, unspecified Status: Acute Assessment and Plan: Patient has chronic atrial fibrillation. Last hospitalization, he was on digoxin and Coreg. Both of these medications had to be decrease then stopped related to bradycardia with prolonged cardiac pause. Patient presents with AFib/RVR felt related to pain. Patietn was on diltiazem drip that was controlling his HR. He has been transitioned to low dose Coreg and tolerating this well. Long episiode of NSVT noted overnight - replace potassium. No plans for anticoagulation. Cardiology following and appreciate their input. (5) Leukocytosis: Qualifiers: Leukocytosis type: unspecified Qualified Code(s): D72.829 - Elevated white blood cell count, unspecified Code(s): D72.829 - Elevated white blood cell count, unspecified Status: Acute Assessment and Plan: WBC was 14K at discharge but jumped to 23K on this admission. More likely related to stress response then from infectious process. BCx NGTD. UCx noted. Repeat WBC down to 11.8K off abx. Follow. (6) RADHA (acute kidney injury): Code(s): N17.9 - Acute kidney failure, unspecified Status: Acute Assessment and Plan: Patient with normal Cr baseline. He developed RADHA last admission felt possibly related to AIN. His Cr peaked at 3.5 before improving to 1.6 at discharge. Cr 1.6 on admission but climbed to 1.9 felt related to above events. Cr back down to 1.6. Resume demedex. Continue to monitor. (7) Anticoagulant long-term use: Code(s): Z79.01 - [facility] (current) use of anticoagulants Status: Acute Assessment and Plan: During his last hospital course, patient was started back on his Eliquis for his AFib which he tolerated well. Eliquis currently on hold with no plans to resume at this time due to the gross hematuria and guaiac positive stools. (8) Sacral decubitus ulcer: Code(s): L89.159 - Pressure ulcer of sacral region, unspecified stage Status: Acute Assessment and Plan: Patient with known sacral decubitus ulcer. He also has right stump wound. Continue current dressing changes. Wound care following (9) Diabetes: Code(s): E11.9 - Type 2 diabetes mellitus without complications Statu
--- NOTE | 2021-01-23 11:50 | PCDIET ---
Nutrition Follow-Up Complete: Nutrition Diagnosis: Increased protein needs related to increased demands for healing as evidenced by stage IV area on sacrum. Nutrition Goal: Patient to meet estimated nutritional needs. Goal in progress. Patient has consumed an average of 55% of recorded meals. Reports good appetite but does not care for the food. Requesting Glucerna Shake (220kcal, 10g protein) with meals. Given intakes and sacral wound, this is very appropriate. Last recorded weight is 148.7 kg which is stable with last review. Bowel Motility: BM x 3 on 01/22/21. Labs Reviewed: WBC (11.8), RBC (2.54), Hgb (7.2), Hct (23.2), Glu (188), BUN (24), Cr (1.6), K (3.2), Na (131), Alb (2.4), Isidro Ca (8.08) Meds Noted: Minford, Coreg, Ergocalciferol, Novolog, Lantus, Prevacid, Mag-Ox, Reglan, Demadex, KCl Additional Notes: Integumentary notes reviewed. Will continue to monitor with same goal. Nutrition Monitoring and Evaluation: Follow up every 3 days.
[2021-01-23 12:45] LABS: Hematocrit 23.1 % (42.0-52.0); Hemoglobin 7.3 g/dL (14.0-18.0)
[2021-01-23 12:57] LABS: Glucose Point of Care 164 mg/dl (65-105)
--- NOTE | 2021-01-23 16:04 | WPDUROPN2 ---
Progress Note: A&P Assessment and Plan (1) Hematuria, gross: Code(s): R31.0 - Gross hematuria Status: Acute Assessment and Plan: Resolved, ok to keep of CBI and discharge at any time. (2) Urinary retention: Code(s): R33.9 - Retention of urine, unspecified Status: Acute Assessment and Plan: COntinue monthly cath changes and PRN. (3) Abnormal urine sediment: Code(s): R82.90 - Unspecified abnormal findings in urine Status: Acute Assessment and Plan: I explained to the patient that after having a shaw for a long period of time and with a recent infection or gross hematuria, it is normal to have some urine sediment. It may intermittently clog the catheter requiring irrigation to clear the tubing or even a shaw exchange. This will need to be done at the [facility] when he leaves, There is unfortunately not much more that can be done for the sediment. Subjective Subjective Date/Time Seen: 01/23/21 16:04 S/P Cystoscopy with Clot evacuation, 700cc of clot removed in the oR. Patient doing well, urine is clear off of CBI. He had some concerns about his shaw being intermittently clogged with sediment. Review of Systems Respiratory: Respiratory: Reports no additional respiratory complaints Gastrointestinal: Gastrointestinal: Denies abdominal pain, Denies nausea and Denies vomiting Genitourinary: Genitourinary: Denies hematuria and Denies flank pain Exam Resp: Effort & Inspection: normal respiratory effort Cardio: Rate: regular rate GI: GI Palp: Yes Soft to palpation and No Tenderness to palpation present (GI) : General: Yes no CVA tenderness Urinary Catheter: Urinary Catheter: patent and draining, urine clear and other (sediment present) Extrem: General: edema bilateral Objective Data Vital Signs Vital Signs: Vital Signs - 24 hr 01/22/21 18:00 01/22/21 19:00 01/22/21 20:00 Temperature 98.2 F Pulse Rate 76 80 82 Respiratory Rate 32 H Blood Pressure 105/44 L Pulse Oximetry 98 01/22/21 22:00 01/23/21 00:00 01/23/21 02:00 Temperature 97.1 F L Pulse Rate 73 75 88 Respiratory Rate 20 Blood Pressure 130/53 L Pulse Oximetry 99 01/23/21 04:00 01/23/21 06:00 01/23/21 08:00 Temperature 97.2 F L Pulse Rate 79 69 76 Respiratory Rate 22 H Blood Pressure 135/52 L Pulse Oximetry 98 01/23/21 08:48 01/23/21 10:00 01/23/21 12:00 Temperature 97.5 F L Pulse Rate 80 75 79 Respiratory Rate 22 H Blood Pressure 134/51 L Pulse Oximetry 97 01/23/21 13:11 01/23/21 14:00 Temperature 99.2 F Pulse Rate 78 81 Respiratory Rate 22 H Blood Pressure 113/42 L Pulse Oximetry 97 Intake/Output Intake/Output: Intake & Output 01/20/21 01/21/21 01/22/21 01/23/21 23:59 23:59 23:59 23:59 Intake Total 700 2895 1762 1320 Output Total 3172 1675 1620 1700 Balance -7300 1220 142 -380 Meds/Results Medications: Active Medications Generic Name Dose Route Start Last Admin Trade Name Freq PRN Reason Stop Dose Admin Acetaminophen 650 mg 01/22/21 12:48 Acetaminophen 325 Mg Tablet PO Q6H PRN Mild Pain (1-5) Or Fever Hydrocodone Bitart/Acetaminophen 1 tab 01/22/21 12:47 01/23/21 09:27 Hydrocodone/Acetaminophen (*Crx) 5-325 Mg Tablet PO 1 tab Q6H PRN Administration Pain Rated 6-10 Carvedilol 3.125 mg 01/21/21 18:00 01/23/21 06:01 Carvedilol 3.125 Mg Tablet PO 3.125 mg Q12H FAROOQ Administration Dextrose 12.5 gm 01/20/21 11:42 Dextrose 50% 25 Gm/50 Ml Syringe IV PUSH PRN PRN Hypoglycemia Protocol Ergocalciferol 50,000 units 01/20/21 09:00 01/20/21 18:22 Ergocalciferol Soln 8,000 Units/Ml 60 Ml Bottle FEED TUBE 50,000 units WEEKLY FAROOQ Administration Fentanyl Citrate 25 mcg 01/20/21 13:29 Fentanyl Citrate Inj (*Crx) 100 Mcg/2 Ml Vial IV PUSH Q2M PRN Pain Glucagon 1 mg 01/20/21 11:42 Glucagon For Inj 1 Mg Vial IM PRN PRN Hy
[2021-01-23 18:23] LABS: Glucose Point of Care 183 mg/dl (65-105)
[2021-01-23 18:37] LABS: Hematocrit 23.5 % (42.0-52.0); Hemoglobin 7.4 g/dL (14.0-18.0)
[2021-01-23 19:09] LABS: Magnesium 1.2 mg/dL (1.6-2.3); Potassium 3.6 mmol/L (3.4-5.0)
[2021-01-23] MEDS: MAGNESIUM SULF 2 GM/WATER 50ML 2 GM/50 ML BAG IVPB (21:24)
[2021-01-23] MEDS: INSULIN GLARGINE (*BKC) 100 UNITS/ML 45 UNITS SUB-Q (21:24)
[2021-01-23] MEDS: PANTOPRAZOLE 40 MG TABLET PO (21:25)
[2021-01-23 22:25] LABS: Glucose Point of Care 220 mg/dl (65-105)
[2021-01-24] VITALS (15 sets, daily range): BP systolic 122–134; BP diastolic 44–76; PULSE 68–80; RESP 18–22; TEMP 36–36.6; O2SAT 98–100
[2021-01-24 00:27] LABS: Hemoglobin 7.3 g/dL (14.0-18.0)
[2021-01-24 06:05] LABS: Hematocrit 22.6 % (42.0-52.0); Hemoglobin 7.2 g/dL (14.0-18.0); Mean Corpuscular HGB Conc 31.9 g/dl (32-36); Mean Corpuscular Hemoglobin 28.8 pg (26-34); Mean Corpuscular Volume 90.4 fl (80-100); Mean Platelet Volume 8.8 fl (7.4-10.4); Platelet Count Result 202 k/mm3 (150-375); Red Cell Distribution Width 17.1 % (11.5-14.5); White Blood Count 9.9 K/mm3 (4.5-10.0)
[2021-01-24 06:25] LABS: Albumin Level 2.5 g/dL (3.5-5.1); Anion Gap 7 mmol/L (8-16); Blood Urea Nitrogen 21 mg/dL (9-20); Calcium 6.7 mg/dL (8.4-10.2); Carbon Dioxide 30 mmol/L (22-30); Chloride 96 mmol/L (98-107); Estimated CRCL calculation 74 ml/min; Estimated Glomerular Filt Rate 52; Glucose 184 mg/dL (65-110); Magnesium 1.4 mg/dL (1.6-2.3); Phosphorus 3.7 mg/dL (2.5-4.5); Potassium 3.2 mmol/L (3.4-5.0); Sodium 133 mmol/L (137-145)
[2021-01-24] MEDS: carvediloL 3.125 MG TABLET PO ×2 (06:40→17:31)
[2021-01-24] MEDS: METOCLOPRAMIDE HCL 5 MG TABLET PO ×4 (06:41→20:21)
[2021-01-24 08:52] LABS: Glucose Point of Care 153 mg/dl (65-105)
[2021-01-24] MEDS: INSULIN ASPART (*BKC) 100 UNITS/ML 7 UNITS SUB-Q ×3 (09:09→17:36)
[2021-01-24] MEDS: MAGNESIUM OXIDE 400 MG TABLET PO (09:11)
[2021-01-24] MEDS: PANTOPRAZOLE 40 MG TABLET PO ×2 (09:11→20:21)
[2021-01-24] MEDS: SOD HYPOCHLORITE 1/4 STRENGTH 473 ML 1 APPLIC TOPICAL ×2 (09:12→20:18)
[2021-01-24] MEDS: TOLNAFTATE 1% POWDER 45 GM BTL 1 APPLIC TOPICAL ×3 (09:12→17:31)
--- NOTE | 2021-01-24 12:15 | WPDGICN ---
Assessment and Plan Assessment and plan (1) Acute on chronic blood loss anemia: Code(s): D62 - Acute posthemorrhagic anemia Status: Acute Assessment and Plan: probably multifactorial, already with chronic anemia and here with gross hematuria and use of blood thinner now on hold he had recent colonoscopy this year when he had diarrhea and there is not report of melanotic stool, in fact he has brown stool in colostomy bag I do not think that he warrants to have egd at this point of time (I also assumed that he had recent one when PEG was placed at another facility), still he could have gastritis or even small ulcers. I would recommend to continue with PPI daily (2) Occult blood in stools: Code(s): R19.5 - Other fecal abnormalities Status: Acute Assessment and Plan: no overt gib already had colonoscopy and egd this year continue with ppi daily (3) Hematuria, gross: Code(s): R31.0 - Gross hematuria Status: Acute Assessment and Plan: resolved, treated by urology (4) Urinary retention: Code(s): R33.9 - Retention of urine, unspecified Status: Acute Assessment and Plan: shaw working, urology on board (5) Anticoagulant long-term use: Code(s): Z79.01 - emt intermediate (current) use of anticoagulants Status: Acute Assessment and Plan: on hold (6) Sacral decubitus ulcer: Code(s): L89.159 - Pressure ulcer of sacral region, unspecified stage Status: Acute (7) Chronic atrial fibrillation with RVR: Code(s): I48.20 - Chronic atrial fibrillation, unspecified Status: Acute (8) Functional quadriplegia: Code(s): R53.2 - Functional quadriplegia Status: Acute (9) Obesity, morbid, BMI 50 or higher: Code(s): E66.01 - Morbid (severe) obesity due to excess calories Status: Acute GI Consult Note Consult date/time: 01/24/21 12:15 Reason for consult: acute on chronic blood loss anemia, FOBT + HPI: Lester Nguyễn is a 60 year old male with complex medical history who I met first time last year when he was admitted because diarrhea from C diff and Salmonella, eventually he came to see me to the office earlier this year and because persistent diarrhea we decided to admit him to the hospital on 08/2020 in order to get bowel prep and have a colonoscopy since he has functional quadriplegic with bilateral LE amputations. His colonoscopy was unremarkable and diarrhea controlled with meds, discharged same day. 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 Since then he had a diverting colostomy placed to help with wound healing, G-tube for feeding and also complication with gross hematuria. This time he came with gross hematuria again and had urological evaluation. I am called because acute on chronic anemia, stool positive for occult blood (exam of colostomy bag is brown stool). Shaw catheter now is clear. Review of Systems Constitutional: Constitutional: Reports weakness Eyes: Eyes: Reports no additional eye complaints ENT: Reports Normal hearing present Cardiovascular: Cardiovascular: Denies chest pain Respiratory: Respiratory: Denies cough Gastrointestinal: Comments: colostomy in place Genitourinary: Genitourinary: Reports hematuria Musculoskeletal: Comments: weakness both arms Integumentary/Breasts: Skin/Breast: Reports wounds Neurologic: Denies headache(s) Psychiatric: Psychiatric: Reports no additional psychiatric complaints [facility] Past Medical History Medical History (Updated 01/24/21 @ 12:32 by Lisandro Gonzalez MD) Acute on chronic blood loss anemia Atrial fibrillation On chronic anticoagulation with Eliquis C. difficile colitis Chronic
--- NOTE | 2021-01-24 12:46 | PM.IMPN ---
Progress Note: A&P Assessment and Plan (1) Hematuria, gross: Code(s): R31.0 - Gross hematuria Status: Acute Assessment and Plan: [place] related to Abarca trauma when attempted Abarca replacement at the facility. May have false tracked the urethra to cause the penile pain. Urology consulted and patient underwent cystoscopy with clot evacuation 01/20. Was on CBI but able to be weaned off and urine remaining clear. Abarca remains in place. UCx noted but felt to be contaminate. Appreciate Urology input (2) Acute urinary retention: Code(s): R33.8 - Other retention of urine Status: Acute Assessment and Plan: Patient had acute urinary retention when the Abarca catheter was unable to be replaced most likely related to clot formation. Abarca catheter was replaced with relief of obstruction. Still having episodes of obstruction probably related to sediment. Continue to monitor (3) Anemia: Code(s): D64.9 - Anemia, unspecified Status: Acute Assessment and Plan: Last admission, patient's Hgb was 9.3 before dropping to the 7 range but was stable. Patient has underlying chronic anemia related to his multiple chronic medical problems. B12, folate and iron studies consistent with this. Hgb 8.3 on admission but dropped to 6.7 on 01/20 and he was transfused 1U PRBC. Hgb better but then dropped to 6.6 01/22 requiring another transfusion. He has acute blood loss anemia from the gross hematuria with underlying chronic anemia. Stool guaiac was positive. Gastroenterology was consulted. It appears that he had colonoscopy and upper GI endoscopy during PEG tube placement during this year. No further recommendations. Continue PPI. (4) Chronic atrial fibrillation with RVR: Code(s): I48.20 - Chronic atrial fibrillation, unspecified Status: Acute Assessment and Plan: Patient has chronic atrial fibrillation. Last hospitalization, he was on digoxin and Coreg. Both of these medications had to be decrease then stopped related to bradycardia with prolonged cardiac pauses. Patient presents with AFib/RVR felt related to pain. Patient was on diltiazem drip that was controlling his HR. He has been transitioned to low dose Coreg and tolerating this well. Long episiode of NSVT noted overnight. No plans for anticoagulation for now because of his significant anemia and hematuria. Cardiology following and appreciate their input. (5) Leukocytosis: Qualifiers: Leukocytosis type: unspecified Qualified Code(s): D72.829 - Elevated white blood cell count, unspecified Code(s): D72.829 - Elevated white blood cell count, unspecified Status: Acute Assessment and Plan: WBC was 14K at discharge but jumped to 23K on this admission. More likely related to stress response then from infectious process. BCx NGTD. UCx noted. Repeat WBC down to 11.8K. Initially was on antibiotics but was stopped already. Leukocyte count is now within acceptable range. He remained afebrile. (6) RADHA (acute kidney injury): Code(s): N17.9 - Acute kidney failure, unspecified Status: Acute Assessment and Plan: Patient with normal Cr baseline. He developed RADHA last admission felt possibly related to AIN. His Cr peaked at 3.5 before improving to 1.6 at discharge. Cr 1.6 on admission but climbed to 1.9 felt related to above events. Cr back down to 1.6. Resume demedex. Continue to monitor. (7) Anticoagulant long-term use: Code(s): Z79.01 - correction (current) use of anticoagulants Status: Acute Assessment and Plan: During his last hospital course, patient was started back on his Eliquis for his AFib which he tolerated well. Eliquis currently on hold and will continue to hold due to the gross hematuria and guaiac positive stools. (8) Sacral decubitus ulcer: Code(s): L89.159 - Pressure ulcer of sacral region, unspecified stage Status: Acu
[2021-01-24 12:58] LABS: Glucose Point of Care 170 mg/dl (65-105)
[2021-01-24] MEDS: TORSEMIDE 10 MG TABLET PO (17:30)
[2021-01-24] MEDS: INSULIN ASPART (*BKC) 100 UNITS/ML SUB-Q (17:36)
[2021-01-24 19:14] LABS: Glucose Point of Care 202 mg/dl (65-105)
[2021-01-24] MEDS: INSULIN GLARGINE (*BKC) 100 UNITS/ML 45 UNITS SUB-Q (20:20)
[2021-01-24 21:46] LABS: Glucose Point of Care 174 mg/dl (65-105)
[2021-01-25] VITALS (16 sets, daily range): BP systolic 114–141; BP diastolic 50–74; PULSE 44–80; RESP 18–22; TEMP 36.2–36.7; O2SAT 97–100
[2021-01-25] MEDS: METOCLOPRAMIDE HCL 5 MG TABLET PO ×4 (06:58→20:38)
[2021-01-25] MEDS: carvediloL 3.125 MG TABLET PO ×2 (06:58→17:37)
[2021-01-25 08:39] LABS: Glucose Point of Care 188 mg/dl (65-105)
[2021-01-25 08:47] LABS: Hematocrit 22.1 % (42.0-52.0); Hemoglobin 7.1 g/dL (14.0-18.0); Mean Corpuscular HGB Conc 32.1 g/dl (32-36); Mean Corpuscular Hemoglobin 28.9 pg (26-34); Mean Corpuscular Volume 89.8 fl (80-100); Mean Platelet Volume 8.6 fl (7.4-10.4); Platelet Count Result 220 k/mm3 (150-375); Red Blood Count 2.46 M/mm3 (4.6-6.20); Red Cell Distribution Width 16.9 % (11.5-14.5); White Blood Count 10.4 K/mm3 (4.5-10.0)
[2021-01-25 09:01] LABS: Anion Gap 8 mmol/L (8-16); Blood Urea Nitrogen 18 mg/dL (9-20); Calcium 6.6 mg/dL (8.4-10.2); Carbon Dioxide 29 mmol/L (22-30); Chloride 97 mmol/L (98-107); Estimated CRCL calculation 93 ml/min; Estimated Glomerular Filt Rate > 60; Glucose 194 mg/dL (65-110); Magnesium 1.3 mg/dL (1.6-2.3); Potassium 3.2 mmol/L (3.4-5.0); Sodium 134 mmol/L (137-145)
[2021-01-25] MEDS: INSULIN ASPART (*BKC) 100 UNITS/ML 7 UNITS SUB-Q ×3 (09:26→17:39)
[2021-01-25] MEDS: TORSEMIDE 10 MG TABLET PO (09:27)
[2021-01-25] MEDS: TOLNAFTATE 1% POWDER 45 GM BTL 1 APPLIC TOPICAL ×3 (09:28→17:38)
[2021-01-25] MEDS: MAGNESIUM OXIDE 400 MG TABLET PO (09:28)
[2021-01-25] MEDS: PANTOPRAZOLE 40 MG TABLET PO ×2 (09:28→20:39)
[2021-01-25] MEDS: SOD HYPOCHLORITE 1/4 STRENGTH 473 ML 1 APPLIC TOPICAL ×2 (09:28→20:38)
--- NOTE | 2021-01-25 09:52 | WPDGIPROGNO ---
Progress Note: A&P Assessment and Plan (1) Acute on chronic blood loss anemia: Code(s): D62 - Acute posthemorrhagic anemia Status: Acute Assessment and Plan: multifactorial (hematuria, AOCD, use of blood thinners, etc), no signs of GIB- noted brown stool and patient had colonoscopy earlier this year, also EGD elsewhere when had G-tube placement hb low but stable continue with ppi for gastric prophylaxis will [place], call if questions (2) Occult blood in stools: Code(s): R19.5 - Other fecal abnormalities Status: Acute Assessment and Plan: brown stool (3) Urinary retention: Code(s): R33.9 - Retention of urine, unspecified Status: Acute Assessment and Plan: urology following (4) PEG (percutaneous endoscopic gastrostomy) status: Code(s): Z93.1 - Gastrostomy status Status: Acute Assessment and Plan: he is tolerating regular diet, peg was placed at another hospital when he was acutely ill (5) Sacral decubitus ulcer: Code(s): L89.159 - Pressure ulcer of sacral region, unspecified stage Status: Acute (6) Chronic atrial fibrillation with RVR: Code(s): I48.20 - Chronic atrial fibrillation, unspecified Status: Acute (7) Functional quadriplegia: Code(s): R53.2 - Functional quadriplegia Status: Acute (8) Obesity, morbid, BMI 50 or higher: Code(s): E66.01 - Morbid (severe) obesity due to excess calories Status: Acute (9) Anticoagulant long-term use: Code(s): Z79.01 - intermediate card tender (current) use of anticoagulants Status: Acute Subjective Date/time seen: 01/25/21 09:52 Interval history: no new events, urine in shaw catheter is clear, also normal brown stool in colostomy bag. Patient is eating regular breakfast with assistance (still unable to use arms) Review of Systems Review of Systems: All systems reviewed & are unremarkable except as noted in HPI and below Exam Const: General: no acute distress and ill appearing chronically Nutritional Appearance: obese HENMT: General nose exam: Normal nares present Eyes: Sclera: sclerae normal Resp: Auscultation: clear to auscultation bilaterally Cardio: Rhythm: abnormal rhythm irregularly irregular GI: GI Palp: Yes Soft to palpation and No Tenderness to palpation present (GI) Auscultation: normal bowel sounds Other: peg tube site ok, colostomy with brown stool Urinary Catheter: Urinary Catheter: patent and draining Skin: Wounds: wounds noted (rt stump dressing) Neuro: Other: 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 Extrem: Other: s/p leg amputation Psych: Mental Status: mental status grossly normal Objective Data Vital Signs Vital Signs: Vital Signs - 24 hr 01/24/21 10:00 01/24/21 12:00 01/24/21 13:13 Temperature 96.9 F L Pulse Rate 76 75 75 Respiratory Rate 20 Blood Pressure 126/56 L Pulse Oximetry 99 01/24/21 14:00 01/24/21 16:00 01/24/21 16:20 Temperature 97.7 F Pulse Rate 75 76 70 Respiratory Rate 22 H Blood Pressure 133/44 L Pulse Oximetry 100 01/24/21 17:31 01/24/21 18:00 01/24/21 20:00 Temperature 98 F Pulse Rate 70 75 68 Respiratory Rate 18 Blood Pressure 122/76 Pulse Oximetry 100 01/24/21 23:51 01/25/21 00:00 01/25/21 04:00 Temperature 98 F 98.1 F Pulse Rate 77 80 79 Respiratory Rate 20 18 Blood Pressure 134/55 L 114/53 L Pulse Oximetry 98 100 01/25/21 06:58 01/25/21 09:26 Temperature 97.3 F L Pulse Rate 70 68 Respiratory Rate 20 Blood Pressure 127/56 L Pulse Oximetry 100 Intake/Output Intake/Output: Intake & Output 01/22/21 01/23/21 01/24/21 01/25/21 23:59 23:59 23:59 23:59 Intake Total 1762 2150 2420 1080 Output Total 1620 2850 2700 2100 Balance 475 -676 -923 -3300 Meds/Results Medications: Active Medications Generic Name
[2021-01-25] MEDS: POTASSIUM CHLORIDE 20 MEQ TABLET 40 MEQ PO ×3 (13:18→20:38)
[2021-01-25 13:20] LABS: Glucose Point of Care 200 mg/dl (65-105)
--- NOTE | 2021-01-25 14:52 | P.PNIM_ITS ---
Progress Note: A&P Assessment and Plan (1) Hematuria, gross: Code(s): R31.0 - Gross hematuria Status: Acute Assessment and Plan: [place] related to Abarca trauma when attempted Abarca replacement at the facility. May have false tracked the urethra to cause the penile pain. Urology consulted and patient underwent cystoscopy with clot evacuation 01/20. Was on CBI but able to be weaned off and urine remaining clear. Abarca remains in place. UCx noted but felt to be contaminate. Appreciate Urology input (2) Acute urinary retention: Code(s): R33.8 - Other retention of urine Status: Acute Assessment and Plan: Patient had acute urinary retention when the Abarca catheter was unable to be replaced most likely related to clot formation. Abarca catheter was replaced with relief of obstruction. Still having episodes of obstruction probably related to sediment. Continue to monitor (3) Anemia: Code(s): D64.9 - Anemia, unspecified Status: Acute Assessment and Plan: Last admission, patient's Hgb was 9.3 before dropping to the 7 range but was stable. Patient has underlying chronic anemia related to his multiple chronic medical problems. B12, folate and iron studies consistent with this. Hgb 8.3 on admission but dropped to 6.7 on 01/20 and he was transfused 1U PRBC. Hgb better but then dropped to 6.6 01/22 requiring another transfusion. He has acute blood loss anemia from the gross hematuria with underlying chronic anemia. Stool guaiac was positive. Gastroenterology was consulted. It appears that he had colonoscopy and upper GI endoscopy during PEG tube placement during this year. No further recommendations. Continue PPI. (4) Chronic atrial fibrillation with RVR: Code(s): I48.20 - Chronic atrial fibrillation, unspecified Status: Acute Assessment and Plan: Patient has chronic atrial fibrillation. Last hospitalization, he was on digoxin and Coreg. Both of these medications had to be decrease then stopped related to bradycardia with prolonged cardiac pauses. Patient presents with AFib/RVR felt related to pain. Patient was on diltiazem drip that was controlling his HR. He has been transitioned to low dose Coreg and tolerating this well. Long episiode of NSVT noted overnight. No plans for anticoagulation for now because of his significant anemia and hematuria. Cardiology following and appreciate their input. (5) Leukocytosis: Qualifiers: Leukocytosis type: unspecified Qualified Code(s): D72.829 - Elevated white blood cell count, unspecified Code(s): D72.829 - Elevated white blood cell count, unspecified Status: Acute Assessment and Plan: WBC was 14K at discharge but jumped to 23K on this admission. More likely related to stress response then from infectious process. BCx NGTD. UCx noted. Repeat WBC down to 11.8K. Initially was on antibiotics but was stopped already. Leukocyte count is now within acceptable range. He remained afebrile. (6) RADHA (acute kidney injury): Code(s): N17.9 - Acute kidney failure, unspecified Status: Acute Assessment and Plan: Patient with normal Cr baseline. He developed RADHA last admission felt possibly related to AIN. His Cr peaked at 3.5 before improving to 1.6 at discharge. Cr 1.6 on admission but climbed to 1.9 felt related to above events. Cr back down to 1.6. Resume demedex. Continue to monitor. (7) Anticoagulant long-term use: Code(s): Z79.01 - assisted (current) use of anticoagulants Status: Acute Assessment and Plan: During h
[2021-01-25] MEDS: MAGNESIUM SULF 4 GM/WATER100ML 4 GM/100 ML BAG IVPB (15:39)
[2021-01-25 16:41] LABS: Glucose Point of Care 210 mg/dl (65-105)
[2021-01-25] MEDS: INSULIN ASPART (*BKC) 100 UNITS/ML SUB-Q (17:39)
--- NOTE | 2021-01-25 18:46 | PM.PNCARD ---
Progress Note: A&P Assessment and Plan (1) Chronic atrial fibrillation with RVR: Code(s): I48.20 - Chronic atrial fibrillation, unspecified Status: Acute Assessment and Plan: Longstanding atrial fibrillation with intermittent episodes of rapid ventricular response usually due to physiologic stress such as the Abarca trauma, hematuria and trip to the emergency room this admission. Heart rate in the 70s on low-dose carvedilol 3.125 mg b.i.d.. Occasionally drops to 40s but no sustained bradycardia or significant pauses. 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 (2) Anticoagulant long-term use: Code(s): Z79.01 - halfway (current) use of anticoagulants Status: Acute Assessment and Plan: Was taking Eliquis, which will need to be held because of his gross hematuria. Second problem with hematuria over the past month. May not be able to resume anticoagulation. (3) Nonsustained ventricular tachycardia: Code(s): I47.2 - Ventricular tachycardia Status: Acute Assessment and Plan: Nonsustained ventricular tachycardia, asymptomatic, in a patient with normal left ventricular function. Low risk of sudden cardiac . Potassium is low, 3.2, will supplement. Magnesium is low, 1.3, will supplement Continue beta-dahiana. Recheck lytes in a.m.. (4) Hematuria, gross: Code(s): R31.0 - Gross hematuria Status: Acute Assessment and Plan: Improved after cysto, and bladder irrigation (5) Anemia: Code(s): D64.9 - Anemia, unspecified Status: Acute Assessment and Plan: Chronic anemia, worsened with hematuria. He has been transfused (6) Functional quadriplegia: Code(s): R53.2 - Functional quadriplegia Status: Acute Assessment and Plan: Needs total care. Subjective Date/time seen: 01/25/21 18:46 Interval history: Follow-up for atrial fibrillation. Admitted with AFib RVR, at the time when he was in pain, having hematuria secondary to Abarca trauma and more anemic. He has received 1 unit of packed cells and had cystoscopy with removal of blood clots. Date of service 01/21/2021: Tired, not getting a good sleep, frequent interruptions. No pain or shortness of breath. Currently on a Cardizem drip at 15 milligrams/hour. Telemetry shows heart rate generally in the 70s to 80s. Date of service 01/25/2021: Now and more comfortable bed, no recent hematuria. He is feeling better. Telemetry shows persistent AFib with heart rate generally in the 70s, occasionally dropping to the 40s. He had a 23 beat run of ventricular tachycardia in the horseback riding instructor hours of 01/23/2021. Review of Systems Constitutional: Constitutional: Reports weakness ENT: Denies epistaxis Cardiovascular: Cardiovascular: Denies chest pain, Denies pedal edema, Denies leg edema and Denies lightheadedness Respiratory: Respiratory: Denies dyspnea and Denies dyspnea on exertion Gastrointestinal: Gastrointestinal: Denies abdominal pain and Reports nausea Genitourinary: Genitourinary: Denies dysuria Comments: Has a Abarca catheter Musculoskeletal: Musculoskeletal: Reports no additional musculoskeletal complaints Exam Narrative: Morbidly obese male, watching the TV, no distress alert Const: General: no acute distress and uncomfortable HENMT: Mouth: Yes moist mucous membranes Resp: Effort & Inspection: normal respiratory effort Auscultation: clear to auscultation bilaterally Cardio: Rhythm: regular rhythm and abnormal rhythm regularly irregular Heart sounds: no murmurs GI: Inspection: distended GI Palp: Yes Soft to palpation Othe
[2021-01-25 20:13] LABS: Glucose Point of Care 207 mg/dl (65-105)
[2021-01-25] MEDS: HYDROcodone/acetaminophen (*CRX) 5-325 MG TABLET 1 TAB PO (20:38)
[2021-01-25] MEDS: INSULIN GLARGINE (*BKC) 100 UNITS/ML 45 UNITS SUB-Q (20:40)
[2021-01-26] VITALS (17 sets, daily range): BP systolic 113–137; BP diastolic 45–61; PULSE 33–90; RESP 18–24; TEMP 36.3–36.7; O2SAT 96–100
[2021-01-26 05:22] LABS: Anion Gap 7 mmol/L (8-16); Blood Urea Nitrogen 15 mg/dL (9-20); Calcium 6.9 mg/dL (8.4-10.2); Carbon Dioxide 31 mmol/L (22-30); Chloride 98 mmol/L (98-107); Estimated CRCL calculation 93 ml/min; Estimated Glomerular Filt Rate > 60; Glucose 231 mg/dL (65-110); Magnesium 1.6 mg/dL (1.6-2.3); Sodium 136 mmol/L (137-145)
[2021-01-26] MEDS: METOCLOPRAMIDE HCL 5 MG TABLET PO ×4 (06:34→20:36)
[2021-01-26 09:13] LABS: Glucose Point of Care 201 mg/dl (65-105)
[2021-01-26] MEDS: MAGNESIUM OXIDE 400 MG TABLET PO (09:41)
[2021-01-26] MEDS: PANTOPRAZOLE 40 MG TABLET PO ×2 (09:42→20:37)
[2021-01-26] MEDS: SOD HYPOCHLORITE 1/4 STRENGTH 473 ML 1 APPLIC TOPICAL (09:42)
[2021-01-26] MEDS: TORSEMIDE 10 MG TABLET PO (09:42)
[2021-01-26] MEDS: TOLNAFTATE 1% POWDER 45 GM BTL 1 APPLIC TOPICAL ×3 (09:42→18:17)
[2021-01-26] MEDS: INSULIN ASPART (*BKC) 100 UNITS/ML 7 UNITS SUB-Q ×3 (09:42→18:16)
[2021-01-26] MEDS: INSULIN ASPART (*BKC) 100 UNITS/ML SUB-Q (09:43)
[2021-01-26] MEDS: MAGNESIUM SULF 2 GM/WATER 50ML 2 GM/50 ML BAG IVPB ×2 (09:46→12:38)
--- NOTE | 2021-01-26 11:12 | PM.PNCARD ---
Progress Note: A&P Assessment and Plan (1) Chronic atrial fibrillation with RVR: Code(s): I48.20 - Chronic atrial fibrillation, unspecified Status: Acute Assessment and Plan: Longstanding atrial fibrillation with intermittent episodes of rapid ventricular response usually due to physiologic stress such as the Abarca trauma, hematuria and trip to the emergency room this admission. Heart rate in the 70s on low-dose carvedilol 3.125 mg b.i.d.. Occasionally drops to 40s but no sustained bradycardia or significant pauses. 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 (2) Anticoagulant long-term use: Code(s): Z79.01 - [facility] (current) use of anticoagulants Status: Acute Assessment and Plan: Was taking Eliquis, which will need to be held because of his gross hematuria. Second problem with hematuria over the past month. May not be able to resume anticoagulation. (3) Nonsustained ventricular tachycardia: Code(s): I47.2 - Ventricular tachycardia Status: Acute Assessment and Plan: Nonsustained ventricular tachycardia, asymptomatic, in a patient with normal left ventricular function. Low risk of sudden cardiac . Potassium is okay but his magnesium is low. He is receiving 2 g IV x1 this morning but will give him another 2 g of IV magnesium (4) Hematuria, gross: Code(s): R31.0 - Gross hematuria Status: Acute Assessment and Plan: Improved after cysto, and bladder irrigation (5) Anemia: Code(s): D64.9 - Anemia, unspecified Status: Acute Assessment and Plan: Chronic anemia, worsened with hematuria. He has been transfused (6) Functional quadriplegia: Code(s): R53.2 - Functional quadriplegia Status: Acute Assessment and Plan: Needs total care. Subjective Date/time seen: 01/26/21 11:12 Interval history: Follow-up for atrial fibrillation. Admitted with AFib RVR, at the time when he was in pain, having hematuria secondary to Abarca trauma and more anemic. He has received 1 unit of packed cells and had cystoscopy with removal of blood clots. Date of service 01/21/2021: Tired, not getting a good sleep, frequent interruptions. No pain or shortness of breath. Currently on a Cardizem drip at 15 milligrams/hour. Telemetry shows heart rate generally in the 70s to 80s. Date of service 01/25/2021: Now and more comfortable bed, no recent hematuria. He is feeling better. Telemetry shows persistent AFib with heart rate generally in the 70s, occasionally dropping to the 40s. 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 Date of service 01/26/2021: Feels okay today. No chest pain, shortness of breath. No arrhythmia overnight. Replacing electrolytes Review of Systems Constitutional: Constitutional: Reports fatigue, Reports lethargy and Reports weakness Eyes: Eyes: Reports no additional eye complaints ENT: Denies epistaxis Cardiovascular: Cardiovascular: Denies chest pain, Denies pedal edema, Denies leg edema, Denies lightheadedness, Denies palpitations, Denies dyspnea and Denies dyspnea on exertion Respiratory: Respiratory: Denies chest congestion, Denies cough, Denies dyspnea and Denies dyspnea on exertion Gastrointestinal: Gastrointestinal: Denies abdominal pain and Reports nausea Genitourinary: Genitourinary: Reports hematuria (Much improved) and Denies dysuria Musculoskeletal: Musculoskeletal: Reports no additional musculoskeletal complaints and Reports back pain Integumentary/Breasts: Skin/Breast: Denies rash and Reports wounds Neurologic: Re
--- NOTE | 2021-01-26 11:32 | P.DS_ITS ---
DS: Admitting Diagnosis Discharge Date 01/26/21 DS: Summary Time Spent with Patient Time attestation: Total time spent providing and/or coordinating discharge services: DS: Data Data Completed and Pending Labs on day of discharge: Labs from last 24 hours 01/26/21 01/26/21 01/25/21 08:53 04:56 19:43 Sodium 136 L Potassium 4.0 Chloride 98 Carbon Dioxide 31 H Anion Gap 7 L BUN 15 Creatinine 1.10 Estim Creat Clear Calc 93 Estimated GFR > 60 Glucose 231 H POC Capillary Glucose 201 H 207 H Calcium 6.9 L Magnesium 1.6 01/25/21 01/25/21 15:58 12:39 Sodium Potassium Chloride Carbon Dioxide Anion Gap BUN Creatinine Estim Creat Clear Calc Estimated GFR Glucose POC Capillary Glucose 210 H 200 H Calcium Magnesium Discharge Plan Discharge Consulting providers: [facility] ; Alejandro Lubin ; Tucker Denny ; Lisandro Gonzalez Patient Instructions: Apixaban (By mouth), A-fib (Atrial Fibrillation) (GEN), Urinary Retention in Men (GEN), Hematuria (GEN), Safe Use of Anticoagulants (GEN), Blood Thinners (GEN) Discharge Medications: No Action (DME) Mepilex 4 X 4 Bandage 1 patch topical Q12HR Qty: 0 RF: 0 (DME) Mepilex 4 X 4 Bandage 1 patch topical Q12HR Qty: 0 RF: 0 pantoprazole 40 mg Tablet,Delayed Release (Dr/Ec) 40 mg PO Q12HR Qty: 0 RF: 0 cholecalciferol (vitamin D3) 1,250 mcg (50,000 unit) Capsule 1,250 mcg feeding tube WEEKLY RF: 0 polyethylene glycol 3350 [Miralax] 17 gram Powder In Packet 17 g PO DAILY PRN (Reason: Constipation) RF: 0 miconazole nitrate 2 % Powder 1 applic TOPICAL TID RF: 0 torsemide 10 mg Tablet 10 mg PO QAM Qty: 30 RF: 0 Dakin's Solution 0.125 % Solution 1 applic topical Q12H Qty: 473 RF: 0 Lantus U-100 Insulin 100 unit/mL Solution 45 unit subcut HS Qty: 0 RF: 0 magnesium oxide 400 mg (241.3 mg magnesium) Tablet 400 mg PO DAILY Qty: 30 RF: 0 dextrose [Glutose-15] 40 % Gel 15 g PO PRN PRN (Reason: Hypoglycemia) Qty: 0 RF: 0 acetaminophen [Mapap (acetaminophen)] 325 mg tablet 650 mg PO Q6H PRN (Reason: Mild Pain (1-3) Or Fever) Qty: 0 RF: 0 Eliquis 5 mg tablet 5 mg PO BID Qty: 0 RF: 0 Date of admission: 01/20/21 06:16 Primary Care Provider: Jacqueline,Beltran Banerjee Admitting Provider: Marielle Moore Attending physician on admission: Marielle Moore Condition: Guarded Prognosis
--- NOTE | 2021-01-26 11:44 | PM.IMPN ---
Progress Note: A&P Assessment and Plan (1) Chronic atrial fibrillation with RVR: Code(s): I48.20 - Chronic atrial fibrillation, unspecified Status: Acute Assessment and Plan: Patient has chronic atrial fibrillation. Last hospitalization, he was on digoxin and Coreg. Both of these medications had to be decrease then stopped related to bradycardia with prolonged cardiac pauses. He had an apnea link showing AHI 8 and RI 8.3 but he states he was awake for most of it. Patient presents this admission with AFib/RVR felt related to pain. Patient was placed on a diltiazem drip that was controlling his HR. He has been transitioned to low dose Coreg and tolerated this well. Multiple episodes of NSVT. Mag was low so this was replaced. He had a 4.3sec pause this morning. No plans for anticoagulation for now because of his significant anemia and hematuria and guaiac postive stools. Discussed with Cardiology; plan to stop Coreg now. Contineu to monitor on tele (2) Hematuria, gross: Code(s): R31.0 - Gross hematuria Status: Acute Assessment and Plan: [place] related to Abarca trauma when attempted Abarca replacement at the facility. May have false tracked the urethra to cause the penile pain. Urology consulted and patient underwent cystoscopy with clot evacuation 01/20. Was on CBI but able to be weaned off and urine remaining clear. Abarca remains in place. UCx noted but felt to be contaminate. Appreciate Urology input (3) Acute urinary retention: Code(s): R33.8 - Other retention of urine Status: Acute Assessment and Plan: Patient had acute urinary retention when the Abarca catheter was unable to be replaced most likely related to clot formation. Abarca catheter was replaced with relief of obstruction. Still having episodes of obstruction probably related to sediment. Continue to monitor. Encvouraged hiim to drink plenty of free water (4) Anemia: Code(s): D64.9 - Anemia, unspecified Status: Acute Assessment and Plan: Last admission, patient's Hgb was 9.3 before dropping to the 7 range but was stable. Patient has underlying chronic anemia related to his multiple chronic medical problems. B12, folate and iron studies consistent with this. Hgb 8.3 on admission but dropped to 6.7 on 01/20 and he was transfused 1U PRBC. Hgb better but then dropped to 6.6 9/30 requiring another transfusion. He has acute blood loss anemia from the gross hematuria with underlying chronic anemia. Stool guaiac was positive. Gastroenterology was consulted. It appears that he had colonoscopy and upper GI endoscopy during PEG tube placement during this year. No further recommendations. Continue PPI. Follow HH. (5) Leukocytosis: Qualifiers: Leukocytosis type: unspecified Qualified Code(s): D72.829 - Elevated white blood cell count, unspecified Code(s): D72.829 - Elevated white blood cell count, unspecified Status: Acute Assessment and Plan: WBC was 14K at discharge but jumped to 23K on this admission. More likely related to stress response then from infectious process. BCx NGTD. UCx noted. Repeat WBC down to 9-10 range. Initially was on antibiotics but these were stopped. He remained afebrile. (6) RADHA (acute kidney injury): Code(s): N17.9 - Acute kidney failure, unspecified Status: Acute Assessment and Plan: Patient with normal Cr baseline. He developed RADHA last admission felt possibly related to AIN. His Cr peaked at 3.5 before improving to 1.6 at discharge. Cr 1.6 on admission but climbed to 1.9 felt related to above events. Cr back down to 1.1 today. Continue to monitor. (7) Anticoagulant long-term use: Code(s): Z79.01 - intermodal customer service (current) use of anticoagulants Status: Acute Assessment and Plan: During his last hospital course, patient was started back on his Eliquis for his AFib which he tolerated well. Eliquis current
[2021-01-26 12:26] LABS: Glucose Point of Care 187 mg/dl (65-105)
[2021-01-26] MEDS: ASPIRIN 325 MG TABLET PO (16:35)
[2021-01-26 17:23] LABS: Glucose Point of Care 187 mg/dl (65-105)
[2021-01-26 20:33] LABS: Glucose Point of Care 198 mg/dl (65-105)
[2021-01-26] MEDS: INSULIN GLARGINE (*BKC) 100 UNITS/ML 48 UNITS SUB-Q (20:37)
[2021-01-27] VITALS (20 sets, daily range): BP systolic 113–143; BP diastolic 46–76; PULSE 60–87; RESP 16–32; TEMP 35.9–37.2; O2SAT 99–100
[2021-01-27 05:16] LABS: Hematocrit 22.7 % (42.0-52.0); Mean Corpuscular HGB Conc 30.8 g/dl (32-36); Mean Corpuscular Hemoglobin 28.8 pg (26-34); Mean Corpuscular Volume 93.4 fl (80-100); Mean Platelet Volume 8.8 fl (7.4-10.4); Platelet Count Result 288 k/mm3 (150-375); Red Blood Count 2.43 M/mm3 (4.6-6.20); Red Cell Distribution Width 16.8 % (11.5-14.5); White Blood Count 11.9 K/mm3 (4.5-10.0)
[2021-01-27 05:35] LABS: Albumin Level 2.5 g/dL (3.5-5.1); Anion Gap 4 mmol/L (8-16); Blood Urea Nitrogen 14 mg/dL (9-20); Calcium 7.3 mg/dL (8.4-10.2); Carbon Dioxide 32 mmol/L (22-30); Chloride 101 mmol/L (98-107); Estimated CRCL calculation 101 ml/min; Estimated Glomerular Filt Rate > 60; Glucose 166 mg/dL (65-110); Magnesium 1.9 mg/dL (1.6-2.3); Phosphorus 3.1 mg/dL (2.5-4.5); Potassium 3.8 mmol/L (3.4-5.0); Sodium 137 mmol/L (137-145)
[2021-01-27] MEDS: METOCLOPRAMIDE HCL 5 MG TABLET PO ×4 (06:44→20:20)
[2021-01-27] MEDS: SOD HYPOCHLORITE 1/4 STRENGTH 473 ML 1 APPLIC TOPICAL ×3 (06:44→20:21)
[2021-01-27 09:03] LABS: Glucose Point of Care 174 mg/dl (65-105)
[2021-01-27] MEDS: PANTOPRAZOLE 40 MG TABLET PO ×2 (09:57→20:20)
[2021-01-27] MEDS: MAGNESIUM OXIDE 400 MG TABLET PO (09:57)
[2021-01-27] MEDS: ERGOCALCIFEROL 50,000 UNIT CAPSULE 50000 UNITS PO (09:57)
[2021-01-27] MEDS: ASPIRIN 325 MG TABLET PO (09:57)
[2021-01-27] MEDS: TORSEMIDE 10 MG TABLET PO (09:57)
[2021-01-27] MEDS: INSULIN ASPART (*BKC) 100 UNITS/ML 7 UNITS SUB-Q ×3 (09:58→16:32)
[2021-01-27] MEDS: TOLNAFTATE 1% POWDER 45 GM BTL 1 APPLIC TOPICAL ×3 (10:27→20:21)
--- NOTE | 2021-01-27 11:54 | PM.PNCARD ---
Progress Note: A&P Assessment and Plan (1) Chronic atrial fibrillation with RVR: Code(s): I48.20 - Chronic atrial fibrillation, unspecified Status: Acute Assessment and Plan: Longstanding atrial fibrillation with intermittent episodes of rapid ventricular response usually due to physiologic stress such as the Abarca trauma, hematuria and trip to the emergency room this admission. DC carvedilol. Occasionally drops to 40s but no sustained bradycardia or significant pauses. Some brief pauses overnight but nothing that warrants further workup. 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 (2) Anticoagulant long-term use: Code(s): Z79.01 - long term care administrator (current) use of anticoagulants Status: Acute Assessment and Plan: Was taking Eliquis, which will need to be held because of his gross hematuria. Second problem with hematuria over the past month. May not be able to resume anticoagulation. (3) Nonsustained ventricular tachycardia: Code(s): I47.2 - Ventricular tachycardia Status: Acute Assessment and Plan: Nonsustained ventricular tachycardia, asymptomatic, in a patient with normal left ventricular function. Low risk of sudden cardiac . KCL 40 mEq p.o. x1 (4) Hematuria, gross: Code(s): R31.0 - Gross hematuria Status: Acute Assessment and Plan: Improved after cysto, and bladder irrigation (5) Anemia: Code(s): D64.9 - Anemia, unspecified Status: Acute Assessment and Plan: Chronic anemia, worsened with hematuria. He has been transfused (6) Functional quadriplegia: Code(s): R53.2 - Functional quadriplegia Status: Acute Assessment and Plan: Needs total care. Additional Plan Okay for discharge from my perspective Subjective Date/time seen: 01/27/21 11:54 Interval history: Follow-up for atrial fibrillation. Admitted with AFib RVR, at the time when he was in pain, having hematuria secondary to Abarca trauma and more anemic. He has received 1 unit of packed cells and had cystoscopy with removal of blood clots. Date of service 01/21/2021: Tired, not getting a good sleep, frequent interruptions. No pain or shortness of breath. Currently on a Cardizem drip at 15 milligrams/hour. Telemetry shows heart rate generally in the 70s to 80s. Date of service 01/25/2021: Now and more comfortable bed, no recent hematuria. He is feeling better. Telemetry shows persistent AFib with heart rate generally in the 70s, occasionally dropping to the 40s. He had a 23 beat run of ventricular tachycardia in the dry end tester hours of 01/23/2021. Date of service 01/26/2021: Feels okay today. No chest pain, shortness of breath. No arrhythmia overnight. Replacing electrolytes Review of Systems Constitutional: Constitutional: Reports fatigue, Reports lethargy and Reports weakness Eyes: Eyes: Reports no additional eye complaints ENT: Denies epistaxis Cardiovascular: Cardiovascular: Denies chest pain, Denies pedal edema, Denies leg edema, Denies lightheadedness, Denies palpitations, Denies dyspnea and Denies dyspnea on exertion Respiratory: Respiratory: Denies chest congestion, Denies cough, Denies dyspnea and Denies dyspnea on exertion Gastrointestinal: Gastrointestinal: Denies abdominal pain and Reports nausea Genitourinary: Genitourinary: Reports hematuria (Much improved) and Denies dysuria Musculoskeletal: Musculoskeletal: Reports no additional musculoskeletal complaints and Reports back pain Integumentary/Breasts: Skin/Breast: Denies rash and Reports wounds Neurologic: Reports system reviewed and no additional complaints, except as documented, Denies behavi
[2021-01-27 12:24] LABS: Glucose Point of Care 193 mg/dl (65-105)
[2021-01-27] MEDS: POTASSIUM CHLORIDE 20 MEQ TABLET 40 MEQ PO (12:49)
--- NOTE | 2021-01-27 14:41 | PM.IMPN ---
Progress Note: A&P Assessment and Plan (1) Chronic atrial fibrillation with RVR: Code(s): I48.20 - Chronic atrial fibrillation, unspecified Status: Acute Assessment and Plan: Patient has chronic atrial fibrillation. Last hospitalization, he was on digoxin and Coreg. Both of these medications had to be decrease then stopped related to bradycardia with prolonged cardiac pauses. He had an apnea link showing AHI 8 and RI 8.3 but he states he was awake for most of it. Patient presents this admission with AFib/RVR felt related to pain. Patient was placed on a diltiazem drip that was controlling his HR. He was transitioned to low dose Coreg and tolerated this well. Multiple episodes of NSVT. Mag was low so this was replaced. He had a 4.3sec pause yesterday morning so Coreg stopped. No plans for anticoagulation for now because of his significant anemia and hematuria and guaiac positive stools. No further significant pauses. Continue to monitor on tele (2) Hematuria, gross: Code(s): R31.0 - Gross hematuria Status: Acute Assessment and Plan: [place] related to Abarca trauma when attempted Abarca replacement at the facility. May have false tracked the urethra to cause the penile pain. Urology consulted and patient underwent cystoscopy with clot evacuation 01/20. Was on CBI but able to be weaned off and urine remaining clear. Abarca remains in place. UCx noted but felt to be contaminate. Appreciate Urology input (3) Acute urinary retention: Code(s): R33.8 - Other retention of urine Status: Acute Assessment and Plan: Patient had acute urinary retention when the Abarca catheter was unable to be replaced most likely related to clot formation. Abarca catheter was replaced with relief of obstruction. Still having episodes of obstruction probably related to sediment. Continue to monitor. Encvouraged hiim to drink plenty of free water (4) Anemia: Code(s): D64.9 - Anemia, unspecified Status: Acute Assessment and Plan: Last admission, patient's Hgb was 9.3 before dropping to the 7 range but was stable. Patient has underlying chronic anemia related to his multiple chronic medical problems. B12, folate and iron studies consistent with this. Hgb 8.3 on admission but dropped to 6.7 on 01/20 and he was transfused 1U PRBC. Hgb better but then dropped to 6.6 01/22 requiring another transfusion. He has acute blood loss anemia from the gross hematuria with underlying chronic anemia. Stool guaiac was positive. Gastroenterology was consulted. He had colonoscopy and upper GI endoscopy during PEG tube placement during this year. No further recommendations. Hgb dropped to 7.0 which remained unchanged on repeat. Continue PPI. Transfuse 1 unit. Follow HH. (5) Leukocytosis: Qualifiers: Leukocytosis type: unspecified Qualified Code(s): D72.829 - Elevated white blood cell count, unspecified Code(s): D72.829 - Elevated white blood cell count, unspecified Status: Acute Assessment and Plan: WBC was 14K at discharge but jumped to 23K on this admission. More likely related to stress response then from infectious process. BCx NGTD. UCx noted. Repeat WBC down to 9-10 range. Initially was on antibiotics but these were stopped. He remained afebrile. (6) RADHA (acute kidney injury): Code(s): N17.9 - Acute kidney failure, unspecified Status: Acute Assessment and Plan: Patient with normal Cr baseline. He developed RADHA last admission felt possibly related to AIN. His Cr peaked at 3.5 before improving to 1.6 at discharge. Cr 1.6 on admission but climbed to 1.9 felt related to above events. Cr back down to 1.0 today. Continue to monitor. (7) Anticoagulant long-term use: Code(s): Z79.01 - alf (current) use of anticoagulants Status: Acute Assessment and Plan: During his last hospital course, patient was started back on his Eliquis fo
[2021-01-27] MEDS: SODIUM CHLORIDE 0.9% IV 250 ML 30 ML IV CONT (16:27)
[2021-01-27 16:54] LABS: Glucose Point of Care 186 mg/dl (65-105)
[2021-01-27 20:18] LABS: Glucose Point of Care 194 mg/dl (65-105)
[2021-01-27] MEDS: INSULIN GLARGINE (*BKC) 100 UNITS/ML 48 UNITS SUB-Q (20:21)
[2021-01-27] MEDS: HYDROcodone/acetaminophen (*CRX) 5-325 MG TABLET 1 TAB PO (20:31)
[2021-01-28] VITALS (10 sets, daily range): BP systolic 107–137; BP diastolic 38–72; PULSE 70–83; RESP 16–20; TEMP 36.1–37.1; O2SAT 97–100
[2021-01-28 05:06] LABS: Hematocrit 24.1 % (42.0-52.0); Hemoglobin 7.6 g/dL (14.0-18.0); Mean Corpuscular HGB Conc 31.5 g/dl (32-36); Mean Corpuscular Hemoglobin 28.9 pg (26-34); Mean Corpuscular Volume 91.6 fl (80-100); Mean Platelet Volume 8.4 fl (7.4-10.4); Platelet Count Result 296 k/mm3 (150-375); Red Blood Count 2.63 M/mm3 (4.6-6.20); Red Cell Distribution Width 16.6 % (11.5-14.5); White Blood Count 10.9 K/mm3 (4.5-10.0)
[2021-01-28 05:23] LABS: Anion Gap 5 mmol/L (8-16); Blood Urea Nitrogen 13 mg/dL (9-20); Calcium 7.6 mg/dL (8.4-10.2); Carbon Dioxide 31 mmol/L (22-30); Chloride 99 mmol/L (98-107); Estimated CRCL calculation 101 ml/min; Estimated Glomerular Filt Rate > 60; Glucose 174 mg/dL (65-110); Potassium 3.9 mmol/L (3.4-5.0); Sodium 135 mmol/L (137-145)
[2021-01-28] MEDS: METOCLOPRAMIDE HCL 5 MG TABLET PO ×2 (06:00→11:49)
[2021-01-28 08:43] LABS: Glucose Point of Care 158 mg/dl (65-105)
[2021-01-28] MEDS: INSULIN ASPART (*BKC) 100 UNITS/ML 7 UNITS SUB-Q ×2 (09:13→11:50)
[2021-01-28] MEDS: PANTOPRAZOLE 40 MG TABLET PO (09:14)
[2021-01-28] MEDS: MAGNESIUM OXIDE 400 MG TABLET PO (09:14)
[2021-01-28] MEDS: ASPIRIN 325 MG TABLET PO (09:14)
[2021-01-28] MEDS: TORSEMIDE 10 MG TABLET PO (09:14)
--- NOTE | 2021-01-28 09:22 | PCDIET ---
Nutrition Follow-Up Complete: Nutrition Diagnosis: Increased protein needs related to increased demands for healing as evidenced by stage IV area on sacrum. Nutrition Goal: Patient to meet estimated nutritional needs. Goal met. Patient consumed an average of 87% of recorded meals since 01/23/21 on diabetic diet. Continues on Glucerna Shake TID. Last recorded weight is 148.7 kg which is stable, despite significantly negative fluid balance. Recommend re-weighing to ensure accuracy. Bowel Motility: Last documented BM on 01/27/21 x 1. Labs Reviewed: WBC (10.9), RBC (2.63), Hgb (7.6), Hct (24.1), Glu (174), Na (135), Isidro Ca (8.8) Meds Noted: [place], Drisdol, Novolog, Lantus, Mag-Ox, Reglan, Protonix, Demadex Additional Notes: Sacral stage IV; left elbow unstageable area; posterior neck abrasion; right distal leg incision. Will continue to monitor with same goal. No new recommendations at this time. Nutrition Monitoring and Evaluation: Follow up every 5 days.
--- NOTE | 2021-01-28 10:56 | PM.PNCARD ---
Progress Note: A&P Assessment and Plan (1) Chronic atrial fibrillation with RVR: Code(s): I48.20 - Chronic atrial fibrillation, unspecified Status: Acute Assessment and Plan: Longstanding atrial fibrillation with intermittent episodes of rapid ventricular response usually due to physiologic stress such as the Abarca trauma, hematuria and trip to the emergency room this admission. DC carvedilol. Occasionally drops to 40s but no sustained bradycardia or significant pauses. Some brief pauses overnight but nothing that warrants further workup. 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 (2) Anticoagulant long-term use: Code(s): Z79.01 - terminal clerk (current) use of anticoagulants Status: Acute Assessment and Plan: Was taking Eliquis, which will need to be held because of his gross hematuria. Second problem with hematuria over the past month. May not be able to resume anticoagulation. (3) Nonsustained ventricular tachycardia: Code(s): I47.2 - Ventricular tachycardia Status: Acute Assessment and Plan: Nonsustained ventricular tachycardia, asymptomatic, in a patient with normal left ventricular function. Low risk of sudden cardiac . (4) Hematuria, gross: Code(s): R31.0 - Gross hematuria Status: Acute Assessment and Plan: Improved after cysto, and bladder irrigation (5) Anemia: Code(s): D64.9 - Anemia, unspecified Status: Acute Assessment and Plan: Chronic anemia, worsened with hematuria. He has been transfused (6) Functional quadriplegia: Code(s): R53.2 - Functional quadriplegia Status: Acute Assessment and Plan: Needs total care. (7) Edema of upper extremity: Code(s): R60.0 - Localized edema Status: Acute Assessment and Plan: Furosemide 40 mg IV x1. He has significant upper extremity edema Subjective Date/time seen: 01/28/21 10:56 Interval history: Follow-up for atrial fibrillation. Admitted with AFib RVR, at the time when he was in pain, having hematuria secondary to Abarca trauma and more anemic. He has received 1 unit of packed cells and had cystoscopy with removal of blood clots. Date of service 01/21/2021: Tired, not getting a good sleep, frequent interruptions. No pain or shortness of breath. Currently on a Cardizem drip at 15 milligrams/hour. Telemetry shows heart rate generally in the 70s to 80s. Date of service 01/25/2021: Now and more comfortable bed, no recent hematuria. He is feeling better. Telemetry shows persistent AFib with heart rate generally in the 70s, occasionally dropping to the 40s. He had a 23 beat run of ventricular tachycardia in the intraoperative neuro tech hours of 01/23/2021. Date of service 01/26/2021: Feels okay today. No chest pain, shortness of breath. No arrhythmia overnight. Replacing electrolytes Date of service 01/28/2021: Has some upper extremity edema but no chest pain, shortness of breath. Review of Systems Constitutional: Constitutional: Reports fatigue, Reports lethargy and Reports weakness Eyes: Eyes: Reports no additional eye complaints ENT: Denies epistaxis Cardiovascular: Cardiovascular: Denies chest pain, Denies pedal edema, Denies leg edema, Denies lightheadedness, Denies palpitations, Denies dyspnea and Denies dyspnea on exertion Respiratory: Respiratory: Denies chest congestion, Denies cough, Denies dyspnea and Denies dyspnea on exertion Gastrointestinal: Gastrointestinal: Denies abdominal pain and Reports nausea Genitourinary: Genitourinary: Reports hematuria (Much improved) and Denies dysuria Musculoskeletal: Musculoskeletal: Reports no additional musculosk
[2021-01-28] MEDS: FUROSEMIDE INJ 40 MG/4 ML VIAL IV PUSH (11:49)
[2021-01-28] MEDS: FERROUS SULFATE 324 MG TABLET PO (11:49)
[2021-01-28] MEDS: TOLNAFTATE 1% POWDER 45 GM BTL 1 APPLIC TOPICAL (11:51)
[2021-01-28 12:24] LABS: Glucose Point of Care 173 mg/dl (65-105)
--- NOTE | 2021-01-28 13:43 | PM.DS ---
DS: Admitting Diagnosis Discharge Date 01/28/21 Admitting Diagnosis Hematuria DS: Discharge Diagnosis Discharge Diagnosis (1) Chronic atrial fibrillation with RVR: Code(s): I48.20 - Chronic atrial fibrillation, unspecified Status: Acute Assessment and Plan: Patient has chronic atrial fibrillation. Last hospitalization, he was on digoxin and Coreg. Both of these medications had to be decrease then stopped related to bradycardia with prolonged cardiac pauses. He had an apnea link showing AHI 8 and RI 8.3 but he states he was awake for most of it. Patient presents this admission with AFib/RVR felt related to pain. Patient was placed on a diltiazem drip that was controlling his HR. He was transitioned to low dose Coreg and tolerated this well. Multiple episodes of NSVT. Mag was low so this was replaced. He had a 4.3sec pause so Coreg stopped. No plans for anticoagulation for now because of his significant anemia and hematuria and guaiac positive stools. No further significant pauses off Coreg. Has intermittent NSVT but unable to give AV viridiana blocking agents plus patient is low risk for sudden cardiac . Appreciate cardiology input. Added back ASA. (2) Hematuria, gross: Code(s): R31.0 - Gross hematuria Status: Acute Assessment and Plan: [place] related to Abarca trauma when attempted Abarca replacement at the facility. May have false tracked the urethra to cause the penile pain. Urology consulted and patient underwent cystoscopy with clot evacuation 01/20. Was on CBI but able to be weaned off and urine remaining clear. Abarca remains in place. UCx noted but felt to be contaminate. Appreciate Urology input. Too difficult for patient to come to the clinic for Abarca exchanges so will plan to have Abarca changed out at the facility. (3) Acute urinary retention: Code(s): R33.8 - Other retention of urine Status: Acute Assessment and Plan: Patient had acute urinary retention when the Abarca catheter was unable to be replaced most likely related to clot formation. Abarca catheter was replaced here with relief of obstruction. Urinary sediment noted but improved. Continue to monitor. (4) Anemia: Code(s): D64.9 - Anemia, unspecified Status: Acute Assessment and Plan: Last admission, patient's Hgb was 9.3 before dropping to the 7 range but was stable. Patient has underlying chronic anemia related to his multiple chronic medical problems. B12, folate and iron studies consistent with this. Hgb 8.3 on admission but dropped to 6.7 on 01/20 and he was transfused 1U PRBC. Hgb better but then dropped to 6.6 01/22 requiring another transfusion; a third unit given close to discharge. He has acute blood loss anemia from the gross hematuria with underlying chronic anemia. Stool guaiac was positive. Gastroenterology was consulted. He had colonoscopy and upper GI endoscopy during PEG tube placement during this year. No further GI recommendations. We continued PPI. (5) Leukocytosis: Qualifiers: Leukocytosis type: unspecified Qualified Code(s): D72.829 - Elevated white blood cell count, unspecified Code(s): D72.829 - Elevated white blood cell count, unspecified Status: Acute Assessment and Plan: WBC was 14K at discharge but jumped to 23K on this admission. More likely related to stress response then from infectious process. BCx NGTD. UCx noted. Repeat WBC down to 9-11 range. Initially was on antibiotics but these were stopped. He remained afebrile. (6) RADHA (acute kidney injury): Code(s): N17.9 - Acute kidney failure, unspecified Status: Acute Assessment and Plan: Patient with normal Cr baseline. He developed RADHA last admission felt possibly related to AIN. His Cr peaked at 3.5 before improving to 1.6 at discharge. Cr 1.6 on admission here but climbed to 1.9 felt related to above events. Cr back down to 1.0 today. We wer
[2021-01-28 17:29] LABS: Glucose Point of Care 207 mg/dl (65-105)
== END 2021-01-28 16:50 | DRG 698 ==
LOC: ANHED 03:51 → ANHIMU 07:16
PROVIDERS: Internal Medicine Cardiovascular Disease; Internal Medicine Critical Care Medicine; Urology; Admitting Provider Internal Medicine; Emergency Provider General Practice; PCP Internal Medicine; Visit Provider Internal Medicine
PROC: 0TCB8ZZ Extirpation of Matter from Bladder, Via Natural or Artificial Opening Endoscopic (ICD-10-PCS; CPT 52001; principal; 2021-01-20 13:30)
DX: S37.39XA Other injury of urethra, initial encounter (principal); L89.154 Pressure ulcer of sacral region, stage 4; R53.2 Functional quadriplegia; D62 Acute posthemorrhagic anemia; Z68.42 Body mass index [BMI] 45.0-49.9, adult; I47.2 Ventricular tachycardia; I48.19 Other persistent atrial fibrillation; N17.9 Acute kidney failure, unspecified; N32.89 Other specified disorders of bladder; R31.0 Gross hematuria; X58.XXXA Exposure to other specified factors, initial encounter; E11.22 Type 2 diabetes mellitus with diabetic chronic kidney disease; I12.9 Hypertensive chronic kidney disease with stage 1 through stage 4 chronic kidney disease, or unspecified chronic kidney disease; N18.30 Chronic kidney disease, stage 3 unspecified; R33.8 Other retention of urine; L89.819 Pressure ulcer of head, unspecified stage; D63.8 Anemia in other chronic diseases classified elsewhere; D72.829 Elevated white blood cell count, unspecified; E66.01 Morbid (severe) obesity due to excess calories; E11.21 Type 2 diabetes mellitus with diabetic nephropathy; E78.5 Hyperlipidemia, unspecified; G47.33 Obstructive sleep apnea (adult) (pediatric); I73.9 Peripheral vascular disease, unspecified; R11.2 Nausea with vomiting, unspecified; T36.95XA Adverse effect of unspecified systemic antibiotic, initial encounter; Z66 Do not resuscitate; Z79.01 Long term (current) use of anticoagulants; Z90.49 Acquired absence of other specified parts of digestive tract; Z89.512 Acquired absence of left leg below knee; Z89.511 Acquired absence of right leg below knee; Z93.3 Colostomy status; Z93.1 Gastrostomy status; L89.816 Pressure-induced deep tissue damage of head
CPT/HCPCS: 36415; 36430; 36600; 71045; 74019; 80048; 80053; 80069; 82274; 82375; 82805; 82948; 83050; 83605; 83735; 84132; 85014; 85018; 85025; 85027; 85610; 85730; 86850; 86900; 86901; 86920; 87040; 87086; 87088; 87106; 93005; 96365; 96366; 96375; 96376; 99285; A9270; C1769; J1170; J1815; J1940; J2405; J2543; J2704; J3475; J7050; J7120; P9016

== ENCOUNTER → 2021-04-24 07:32 | Outpatient (CLI) | payer MEDICARE, OTHER, SELFPAY ==
--- NOTE | ~2021-04-24 | US_ITS ---
EXAMINATION: US right upper quadrant EXAM DATE: 04/24/2021 08:06 INDICATION: Gallstones. TECHNIQUE: Multiple grayscale and Doppler images of the abdomen right upper quadrant were obtained (b y a technologist who performed the scan) and subsequently reviewed. Prior study from 2003. FINDINGS: The pancreatic head and body are normal in appearance. The pancreatic tail is not visualized. The l iver has normal echogenicity and contour. There are no focal liver lesions identified. There is no evidence of intrahepatic biliary duct dilation. Portal venous flow was seen in the hepatopedal, nor mal direction and has normal Doppler waveform. No right-sided hydronephrosis. Common bile duct measures 5 mm, which is normal. Gallbladder wall has mild distention, and mild wall thickening. No sonographic evidence of pericholecystic fluid. There is cholelithiasis. Technologis t performing exam reports patient did not demonstrate sonographic Roper's sign. Please note that th is sign is less reliable in patients who have received pain medication. IMPRESSION: Cholelithiasis and mild gallbladder wall thickening, nonspecific in absence of sonographi c Roper's sign, however reportedly patient is on pain medication. Possible acute or chronic cholecys titis. Clinical correlation, consider HIDA scan. Reviewed, dictated and finalized at location A. COMMUNICATIONS OFFICER IMPRESSION: Cholelithiasis and mild gallbladder wall thickening, nonspecific in absence of sonographic Roper's sign, however reportedly patient is on pain me dication. Possible acute or chronic cholecystitis. Clinical correlation, consid er HIDA scan.
== END ==
PROVIDERS: PCP Internal Medicine; Visit Provider Internal Medicine
DX: K80.20 Calculus of gallbladder without cholecystitis without obstruction (principal)
CPT/HCPCS: 76705